=== PATIENT | male | born 1965 | race Caucasian/White ===

== ENCOUNTER 2018-07-03 12:38 | Observation (INO) | payer BC, SELFPAY ==
--- OUTSIDE RECORDS SUMMARY | 2018-07-03 12:41 | XMS REPORT | Clinical Summary ---
:1965 Author Organization [facility] Address [address] [place] [address] Care Team Providers Name Role Phone Henri Rene DO Primary Care Provider Allergies No Known Allergies Current Medications Prescription Sig. Disp. Refills Start Date End Date Status citalopram (CeleXA) 20 Take 20 mg by Active MG tablet mouth daily. clopidogrel (PLAVIX) Take 75 mg by Active 75 mg tablet mouth daily. carvedilol (COREG) 25 Take 25 mg by Active MG tablet mouth 2 (two) times a day with meals. atorvastatin (LIPITOR) Take 40 mg by Active 40 MG tablet mouth 2 (two) times a day. aspirin (ECOTRIN) 81 Take 81 mg by Active MG enteric coated mouth daily. tablet nitroglycerin Place 0.4 mg Active (NITROSTAT) 0.4 MG SL under the tablet tongue every 5 (five) minutes as needed for chest pain. ascorbic acid, vitamin Take 500 mg by Active C, (VITAMIN C) 500 MG mouth daily. tablet multivitamin Take 1 tablet Active (THERAGRAN) tablet by mouth daily. ranitidine (ZANTAC) Take 150 mg by Active 150 MG tablet mouth daily. insulin GLARGINE Inject 15 Units 4.5 mL 0 10/31/2017 11/30/2017 (LANTUS) 100 unit/mL under the skin injection (vial) daily for 30 days. metFORMIN (GLUCOPHAGE) Take 1 tablet 60 tablet 0 10/31/2017 11/30/2017 500 mg tablet (500 mg total) by mouth 2 (two) times a day with meals for 30 days. Active Problems Problem Noted Date Type 2 diabetes mellitus without complication (HCC) 10/30/2017 Obesity (BMI 30-39.9) 10/30/2017 Essential hypertension 10/30/2017 Unstable angina pectoris (HCC) 10/28/2017 Encounters Date Type Specialty Care Team Description 10/28/2017 - Hospital Encounter General Internal Sary Slater Unstable angina pectoris (Primary Dx); 10/31/2017 Medicine MD Kari Type 2 diabetes mellitus without complication, without long-term current use of insulin Nolberto Christopher MD after 07/02/2017 Social History Tobacco Use Types Packs/Day Years Used Date Former Smoker Smokeless Tobacco: Current User Alcohol Use Drinks/Week oz/Week Comments Yes 12 Cans of beer 7.2 Sex Assigned at Date Recorded Not on file Last Filed Vital Signs Vital Sign Reading Time Taken Blood Pressure 132/79 10/31/2017 12:56 PM RESEARCH AND DEVELOPMENT DIRECTOR Pulse 53 10/31/2017 12:56 PM RESEARCH AND DEVELOPMENT DIRECTOR Temperature 36.3 C (97.4 F) 10/31/2017 12:56 PM RESEARCH AND DEVELOPMENT DIRECTOR Respiratory Rate 17 10/31/2017 12:56 PM RESEARCH AND DEVELOPMENT DIRECTOR Oxygen Saturation 94% 10/31/2017 12:56 PM RESEARCH AND DEVELOPMENT DIRECTOR Inhaled Oxygen Concentration - - Weight 114 kg (251 lb) 10/28/2017 11:36 AM RESEARCH AND DEVELOPMENT DIRECTOR Height 182.9 cm (6') 10/28/2017 11:36 AM RESEARCH AND DEVELOPMENT DIRECTOR Body Mass Index 34.04 10/28/2017 11:36 AM RESEARCH AND DEVELOPMENT DIRECTOR Plan of Treatment Health Maintenance Due Date Last Done Comments DIABETIC RETINAL EYE EXAM 1965 DIABETIC FOOT EXAM 1975 URINE MICROALBUMIN 1975 COLON CANCER SCREENING 2015 SHINGRIX VACCINE (#1) 2015 INFLUENZA VACCINE 03/29/2018 Procedures Procedure Name Priority Date/Time Associated Comments Diagnosis POC GLUCOSE Routine 10/31/2017 12:57 Results for this PM RESEARCH AND DEVELOPMENT DIRECTOR procedure are in the results section. POC GLUCOSE Routine 10/31/2017 9:16 Results for this AM RESEARCH AND DEVELOPMENT DIRECTOR procedure are in the results section. VITAMIN D 25 HYDROXY Routine 10/31/2017 5:24 Results for this LEVEL AM RESEARCH AND DEVELOPMENT DIRECTOR procedure are in the results section. LIPID PANEL Routine 10/31/2017 5:24 Results for this AM RESEARCH AND DEVELOPMENT DIRECTOR procedure are in the results section. POC GLUCOSE Routine 10/30/2017 8:40 Results for this PM RESEARCH AND DEVELOPMENT DIRECTOR procedure are in the results section. POC GLUCOSE Routine 10/30/2017 5:24 Results for this PM RESEARCH AND DEVELOPMENT DIRECTOR procedure are in the results section. POC GLUCOSE Routine 10/30/2017 12:38 Results for this PM RESEARCH AND DEVELOPMENT DIRECTOR procedure are in the results section. CT ANGIOGRAM PE CHEST STAT 10/30/2017 9:39 Results for this AM RESEARCH AND DEVELOPMENT DIRECTOR procedure are in the results section. POC GLUCOSE Routine 10/30/2017 7:59 Results for this AM RESEARCH AND DEVELOPMENT DIRECTOR procedure are in the results section. POC GLUCOSE Routine 10/29/2017 8:36 Results for this PM RESEARCH AND DEVELOPMENT DIRECTOR procedure are in the results section. POC GLUCOSE Routine 10/29/2017 6:14 Results for this PM RESEARCH AND DEVELOPMENT DIRECTOR procedure are in the results section. NM MYOCARDIAL PERFUSION Routine 10/29/2017 3:35 Results for this STRESS ONLY PM RESEARCH AND DEVELOPMENT DIRECTOR procedure are in the results section. POC GLUCOSE Routine 10/29/2017 12:15 Results for this PM RESEARCH AND DEVELOPMENT DIRECTOR procedure are in the results section. CV STRESS TEST Routine 10/29/2017 9:47 Results for this AM RESEARCH AND DEVELOPMENT DIRECTOR procedure are in the results section. ECHOCARDIOGRAM 2D Routine 10/29/2017 9:14 Results for this COMPLETE W MMODE AM RESEARCH AND DEVELOPMENT DIRECTOR procedure are in SPECTRAL COLOR DOPPLER the results (90937) section. POC GLUCOSE Routine 10/29/2017 7:57 Results for this AM RESEARCH AND DEVELOPMENT DIRECTOR procedure are in the results section. ZZESTIMATED GFR Routine 10/29/2017 6:07 Results for this AM RESEARCH AND DEVELOPMENT DIRECTOR procedure are in the results section. THYROID STIMULATING Routine 10/29/2017 6:07 Results for this HORMONE AM RESEARCH AND DEVELOPMENT DIRECTOR procedure are in the results section. MAGNESIUM LEVEL Routine 10/29/2017 6:07 Results for this AM RESEARCH AND DEVELOPMENT DIRECTOR procedure are in the results section. BASIC METABOLIC PANEL Routine 10/29/2017 6:07 Results for this AM RESEARCH AND DEVELOPMENT DIRECTOR procedure are in the results section. HC COMPLETE BLD COUNT Routine 10/29/2017 6:07 Results for this W/AUTO DIFF AM RESEARCH AND DEVELOPMENT DIRECTOR procedure are in the results section. TROPONIN Routine 10/29/2017 6:07 Results for this AM RESEARCH AND DEVELOPMENT DIRECTOR procedure are in the results section. HEMOGLOBIN A1C Routine 10/29/2017 6:07 Results for this AM RESEARCH AND DEVELOPMENT DIRECTOR procedure are in the results section. POC GLUCOSE Routine 10/28/2017 9:06 Results for this PM RESEARCH AND DEVELOPMENT DIRECTOR procedure are in the results section. TROPONIN Timed 10/28/2017 3:38 Results for this PM RESEARCH AND DEVELOPMENT DIRECTOR procedure are in the results section. POC GLUCOSE Routine 10/28/2017 2:42 Results for this PM RESEARCH AND DEVELOPMENT DIRECTOR procedure are in the results section. ECG ED PRELIMINARY Routine 10/28/2017 2:30 Results for this INTERPRETATION PM RESEARCH AND DEVELOPMENT DIRECTOR procedure are in the results section. ZZESTIMATED GFR STAT 10/28/2017 12:08 Results for this PM RESEARCH AND DEVELOPMENT DIRECTOR procedure are in the results section. B NATRIURETIC PEPTIDE STAT 10/28/2017 12:08 Results for this PM RESEARCH AND DEVELOPMENT DIRECTOR procedure are in the results section. TROPONIN STAT 10/28/2017 12:08 Results for this PM RESEARCH AND DEVELOPMENT DIRECTOR procedure are in the results section. COMPREHENSIVE METABOLIC STAT 10/28/2017 12:08 Results for this PANEL PM RESEARCH AND DEVELOPMENT DIRECTOR procedure are in the results section. HC COMPLETE BLD COUNT STAT 10/28/2017 12:08 Results for this W/AUTO DIFF PM RESEARCH AND DEVELOPMENT DIRECTOR procedure are in the results section. XR CHEST 2 VW STAT 10/28/2017 12:00 Results for this PM RESEARCH AND DEVELOPMENT DIRECTOR procedure are in the results section. ECG 12-LEAD STAT 10/28/2017 11:21 Results for this AM RESEARCH AND DEVELOPMENT DIRECTOR procedure are in the results section. after 07/02/2017 Results POC glucose (10/31/2017 12:57 PM)Only the most recent of12 resultswithin the time period is included. POC glucose 248 (H) 65 - 99 mg/dL [facility] DEPARTMENT OF PATHOLOGY AND Comment: HelloSign MEDICINE [facility] Notified RN Meter ID: [id number] Landscape Maintenance Internship: Tejinder Mckenzie Performing Organization Address City/State/Zipcode Phone Number [facility] DEPARTMENT OF PATHOLOGY AND [address] [place] [address] [facility] Vitamin D 25 hydroxy level (10/31/2017 5:24 AM) Vitamin D, 25-hydroxy 22.4 (L) 30.0 - 150.0 [facility] DEPARTMENT OF Comment: ng/mL PATHOLOGY AND GENOMIC This assay reports the sum of 25-hydroxy vitamin D3 and 25-hydroxy vitamin MEDICINE D2. Reference range: 0-17 years: Deficiency: less than 20ng/mL Optimum level: greater than or equal to 20 ng/mL. 18 years and older: Deficiency: less than 20ng/mL Insufficiency: 20-29 ng/mL Optimum Level: 30-80 ng/mL The assay reportable range is 3.4155.9 ng/mL. Levels higher than 150 ng/mL may be associated with toxicity. If toxicity is clinically suspected and the reported result is >155.9 ng/mL,contact lab for alternative methods to obtain a definitivelevel. If separate quantitation of 25-hydroxy vitamin D3 and 25-hydroxy vitamin D2 is needed, please contact lab for alternative methods. Specimen Blood Performing Organization Address [facility]/Zipcode Phone Number [facility] DEPARTMENT OF PATHOLOGY AND [address] [place] [address] [facility] Presdo Lipid panel (10/31/2017 5:24 AM) Cholesterol 189 <200 mg/dL [facility] DEPARTMENT OF PATHOLOGY AND GENOMIC MEDICINE Triglycerides 487 (H) <150 mg/dL [facility] DEPARTMENT OF PATHOLOGY AND GENOMIC MEDICINE HDL cholesterol 40 >40 mg/dL [facility] DEPARTMENT OF PATHOLOGY AND GENOMIC MEDICINE LDL cholesterol 100 (H)Comment: Result <100 mg/dL [facility] DEPARTMENT obtained by direct LDL PATHOLOGY AND GENOMIC measurement MEDICINE Lipid panel interpretation SeeBelow [facility] DEPARTMENT OF Comment: PATHOLOGY AND GENOMIC Total Cholesterol (mg/dL) MEDICINE <200 Desirable 609-367Bvleqisfzv-htst >=240High Triglycerides (mg/dL) <150 Normal 623-278Rtgonvlare-dnjn 200-499High >=500Very high HDL Cholesterol (mg/dL) <40Low (male) <40Low (female) LDL Cholesterol (mg/dL) <100 Optimal 100-129Near or above optimal 475-363Xinemqogub-ylhp 160-189High >=190Very high Risk Catergories that modify LDL goals. Risk CatergoriesLDL goal (mg/dL) CHD and CHD risk equivalent<100 (10-year risk >20%) Multiple (2+) risk factors <130 (10-year risk=<20%) 0-1 risk factors <160 (<10-year risk) Defining levels of lipids in metabolic syndrome Triglycerides>=150 mg/dL HDL Cholesterol Men<40 mg/dL Women<40 mg/dL Non-HDL cholesterol is a second target for therapy in persons with high triglycerides (>=200 mg/dL) Specimen Plasma specimen Performing Organization Address City/[facility]/Zipcode Phone Number [facility] DEPARTMENT OF PATHOLOGY AND [address] [place] [address] [facility] CT Angiogram Pe Chest (10/30/2017 9:39 AM) Narrative Performed At EXAMINATION: [facility] CT ANGIOGRAM PE CHEST CLINICAL HISTORY: SHORTNESS OF BREATH TECHNIQUE: CT angiographic images of the chest were obtained during intravenous administration of iodinated contrast. Computerized reformatted images and 3-D MIP images were also obtained and archived (CT pulmonary embolus protocol). CT imaging was performed with iterative reconstruction technique and/or automated exposure control to reduce radiation dose. COMPARISON: None. IMPRESSION: 1.Mild dependent atelectasis in the lung bases. Punctate calcified granuloma in the left lung base. Lungs are otherwise clear. 2.Normal thyroid. No pathologically enlarged axillary, mediastinal, or hilar lymph nodes. 3.Cardiomegaly. Several coronary stents. Unremarkable thoracic aorta and great vessels. 4.Pulmonary arteries are patent without filling defect/pulmonary embolism. 5.Fatty liver. Punctate nonobstructing stone in the interpolar right kidney and upper pole left kidney. Ill-defined hypoattenuating lesion in the upper pole left kidney, possible cyst but margins do not appear well circumscribed, recommend renal ultrasound for further assessment. 6.Likely Schmorl's node in the superior endplate of L1. SUMMARY: 1.No acute abnormality. No pulmonary embolism. 2.Ill-defined hypoattenuating lesion in the upper pole left kidney, possible cyst but margins do not appear well circumscribed, recommend renal ultrasound for further assessment. 3.Other findings as above. [facility]-[id number] Procedure Note [facility], Radiology Results Incoming - 10/30/2017 9:52 AM RESEARCH AND DEVELOPMENT DIRECTOR EXAMINATION: CT ANGIOGRAM PE CHEST CLINICAL HISTORY: SHORTNESS OF BREATH TECHNIQUE: CT angiographic images of the chest were obtained during intravenous administration of iodinated contrast. Computerized reformatted images and 3-D MIP images were also obtained and archived (CT pulmonary embolus protocol). CT imaging was performed with iterative reconstruction technique and/or automated exposure control to reduce radiation dose. COMPARISON: None. IMPRESSION: 1. Mild dependent atelectasis in the lung bases. Punctate calcified granuloma in the left lung base. Lungs are otherwise clear. 2. Normal thyroid. No pathologically enlarged axillary, mediastinal, or hilar lymph nodes. 3. Cardiomegaly. Several coronary stents. Unremarkable thoracic aorta and great vessels. 4. Pulmonary arteries are patent without filling defect/pulmonary embolism. 5. Fatty liver. Punctate nonobstructing stone in the interpolar right kidney and upper pole left kidney. Ill-defined hypoattenuating lesion in the upper pole left kidney, possible cyst but margins do not appear well circumscribed, recommend renal ultrasound for further assessment. 6. Likely Schmorl's node in the superior endplate of L1. SUMMARY: 1. No acute abnormality. No pulmonary embolism. 2. Ill-defined hypoattenuating lesion in the upper pole left kidney, possible cyst but margins do not appear well circumscribed, recommend renal ultrasound for further assessment. 3. Other findings as above. [facility]-[id number] Performing Organization Address City/State/Zipcode Phone Number [facility] [address] [place] [address] CV myocardial perfusion (10/29/2017 3:35 PM) Narrative Performed At [facility] Nuclear Cardiology and Cardiac CT [address] [place] [address] Myocardial Perfusion Imaging Report Stress ECG tracings are available in [employer], [employer] and [employer] All ECG interpretations are included in this report Pat.Name:Hailey LANDERS.ID:[id number] .Date: 10/29/2017Refer.MD:JOSELIN MIN MD Exam Time: 9:24:00 AM Study Type:Myocardial Perfusion Imaging Height:72inWeight: 251lb BSA: 2.35 m2 DOBAge:1965,52Y Sex: MALEBP:117/65 HR:50 bpm Nuclear Tech:YASMEEN Chilel/Mickey ARANA Pat. Stat.:Inpatient Room:J816 Nuclear Event ID:[id number] Order ID:[id number] Reason for Study:CAD, prior coronary artery stent, Chest pain, unspecified* History / Clinical:Coronary artery disease, Diabetes, Family history CAD, Hypertension, Obesity Procedures:Stress only Risk Factors:Known Coronary Atherosclerosis, Diabetes, Family History Premature, Hypertension, Obesity Clinical Symptoms:Regadenoson Physical Exam:S1, S2, Clear Lungs Surgery: Serum K+ Date,4.4/10/29/17, Troponin I Date,1)neg x 210/28/17 2)/ 3)/, BUN/Creatinine Date,13/0.9/10/29/17 Medications:Aspirin, Coreg, Hydralazine, Insulin, Lipitor, Plavix SUMMARY: SCINTIGRAPHIC RESULTS Perfusion Defect Size (% LV) 0 % Total 0 % Ischemia 0 % Scar Left Ventricular Perfusion Results There is normal tracer distribution throughout the myocardium during stress. Gated SPECT Results The post-stress left ventricular ejection fraction is 66 % with normal regional wall motion and left ventricular thickening.Left ventricular end-diastolic volume is 139 ml; end-systolic volume is47 ml. The left ventricle is of normal size at stress.The right ventricle is of normal size with normal wall motion. Conclusion Normal regadenoson Tc-99m tetrofosmin myocardial perfusion study. The left ventricular ejection fraction is normal. Comments Patients with a normal stress myocardial perfusion study have a low (< 1%) annual risk of cardiac or nonfatal myocardial infarction. Study Quality/Artifacts The study quality is good. Comparison to Previous Study None available. STRESS: Baseline Vital Signs:Intervention: Regadenoson 0.4mg/5ml IV over 10 seconds followed by radiotracer injection and 5ml saline flush ECG: Normal Sinus Rhythm HR:50 BP:117/65 Stress Test Results: Target HR: 143 Symptoms and Complications: Arrhythmias: None Terminated: As per Regadenoson protocol Symptoms:Flushing, Headache, Shortness of breath Complications: none Stress ECG Interp: No ischemic ST segment change occurred with stress. Signed 10/29/2017 03:39 PM Sandie Ortiz MD Procedure Note Interface, Radiology Results In - 10/29/2017 3:39 PM [facility] [[email or web address]] Nuclear Cardiology and Cardiac CT [address] [place] [address] Myocardial Perfusion Imaging Report Stress ECG tracings are available in [employer], [employer] and [employer] All ECG interpretations are included in this report Pat.Name: DRAKE LANDERS.ID: [id number] .Date: 10/29/2017 Refer.MD: JOSELIN MIN MD Exam Time: 9:24:00 AM Study Type:Myocardial Perfusion Imaging Height: 72in Weight: 251lb BSA: 2.35 m2 Age: 6 1965,52Y Sex: MALE BP: 117/65 HR: 50 bpm Nuclear Tech:Magalis Herrera [facility]/Mickey Carpenter [facility] Pat. Stat.:Inpatient Room: J816 Nuclear Event ID:[id number] Order ID: [id number] Reason for Study:CAD, prior coronary artery stent, Chest pain, unspecified* History / Clinical:Coronary artery disease, Diabetes, Family history CAD, Hypertension, Obesity Procedures:Stress only Risk Factors:Known Coronary Atherosclerosis, Diabetes, Family History Premature, Hypertension, Obesity Clinical Symptoms:Regadenoson Physical Exam:S1, S2, Clear Lungs Surgery: Serum K+ Date, 4.4/10/29/17, Troponin I Date, 1)neg x 2/10/28/17 2)/ 3)/, BUN/Creatinine Date, 130.910/29/17 Medications:Aspirin, Coreg, Hydralazine, Insulin, Lipitor, Plavix SUMMARY: SCINTIGRAPHIC RESULTS Perfusion Defect Size (% LV) 0 % Total 0 % Ischemia 0 % Scar Left Ventricular Perfusion Results There is normal tracer distribution throughout the myocardium during stress. Gated SPECT Results The post-stress left ventricular ejection fraction is 66 % with normal regional wall motion and left ventricular thickening. Left ventricular end-diastolic volume is 139 ml; end-systolic volume is 47 ml. The left ventricle is of normal size at stress. The right ventricle is of normal size with normal wall motion. Conclusion Normal regadenoson Tc-99m tetrofosmin myocardial perfusion study. The left ventricular ejection fraction is normal. Comments Patients with a normal stress myocardial perfusion study have a low (< 1%) annual risk of cardiac or nonfatal myocardial infarction. Study Quality/Artifacts The study quality is good. Comparison to Previous Study None available. STRESS: Baseline Vital Signs: Intervention: Regadenoson 0.4mg/5ml IV over 10 seconds followed by radiotracer injection and 5ml saline flush ECG: Normal Sinus Rhythm HR: 50 BP: 117/65 Stress Test Results: Target HR: 143 Symptoms and Complications: Arrhythmias: None Terminated: As per Regadenoson protocol Symptoms: Flushing, Headache, Shortness of breath Complications: none Stress ECG Interp: No ischemic ST segment change occurred with stress. Signed 10/29/2017 03:39 PM Sandie Ortiz MD Performing Organization Address [facility] Phone Number [facility] [address] [place] [address] Cv ecg exercise stress (nuclear or echo) (10/29/2017 9:47 AM) Resting HR 50 H MUSE Resting BP 119 [facility] MUSE Peak MET Achieved 1.0 H MUSE Protocol Name REGADENO [facility] MUSE Time in Exercise Phase 00:01:00 [facility] MUSE Max Systolic BP 119 H MUSE Max Diastolic BP 65 H MUSE Max Heart Rate 76 H MUSE Max Predicted Heart Rate 168 H MUSE Target HR Formula (220 - Age)*100% H MUSE Test Indication chest pain [facility] MUSE Arrhy During Ex [facility] MUSE ECG Interp Before EX [facility] MUSE ECG Interp During Ex [facility] MUSE Ex Summary Comment [facility] MUSE Overall HR Response to H MUSE Exercise Overall BP Response To H MUSE Exercise Reason for Termination H MUSE Stress Test Impression -Waveform interpreted in report [facility] MUSE associated with image study. No interpretation is provided as part of this Stress ECG report.-Electronically Signed By Angel MARSHALL, Sandie Muniz ([id number]), editor & co founder Sher Cox ([id number]) on 10/29/2017 2:29:43 PM Performing Organization Address [facility] Phone Number [facility] [employer] [phone] [phone] Echocardiogram complete w contrast and 3D if needed (10/29/2017 9:14 AM) Narrative Performed At [facility] Echocardiography Report [address]Name:Hailey LANDERS.ID:[id number] .Date: 10/29/2017Refer.MD:NOLBERTO CHRISTOPHER MD Exam Time: 8:21:00 AMStudsunil Type:Routine Echo Height:72inWeight: 251lb BSA: 2.35 m2 DOBAge:1965,52Y Sex: MALEBP:123/71 HR:61 bpm Sonogrphr: La Ann RDCS, RVT Pat. Stat.:Inpatient Room:[facility] Study Status:Final Echo Event ID:[id number] Order ID:[id number] Reason for Study:Chest Pain, Hx LA, PCIs History / Clinical:Chest Pain, Coronary Artery Disease, Hypertension Procedures:2D Echo, Colorflow Doppler SUMMARY: LV EF is normal. RV systolic function is mildly depressed. LV filling pressure is normal. Insufficient TR jet to estimate PA systolic pressure. FINDINGS: LV: LV size is normal. LV EF is normal. Overall wall motion is normal.Estimated EF is 60-64%. RV: RV size is moderately enlarged. RV systolic function is mildlydepressed. RV wall motion is mildly hypokinetic. LA: LA size is normal. RA: RA volume is moderately enlarged. AO: Aortic root diameter is normal. BLADIMIR: No pericardial effusion. AV: No structural AV abnormalities noted. MV: No structural MV abnormalities noted. A trace of mitral regurgitation. PV: No structural PV abnormalities noted. A trace of pulmonic regurgitation. TV: No structural TV abnormalities noted. Bowman: LV relaxation is reduced, appropriate for age. LV filling pressureis normal. Other:Insufficient TR jet to estimate PA systolic pressure. MEASUREMENTS: 2D Parasternal Long [place] Ao An2.3 cmLVPWd1 cm LVOT 2.3 cmLA Ds4.3 cm LVIDd5.3 cmIndex2.3 cm/m Ao Rtd 3.6 cm Index1.5 cm/m LVIDs3.4 cm LV Bhsj970.8 g(122-174) LV%fs 35.4 % LVM Index 85.5 g/m2 IVSd 1 cmRWT0.4 LA Sng Plane LA Area 21.6 cm2(8.8-23.4) LA Vol60.3 ml Index25.7 ml/m LA LngAx 6.7 cm RA Sng Plane RA Area 26.8 cm2(8.3-19.5) RA Vol 101.1 ml Index43 ml/m RA LngAx 5.6 cm DOPPLER LVOT Stroke Vol LVOT 2.3 cmLVOT CO4.1 l/min LVOT TVI20.1 cmLVOT CI1.7 l/m/m2 LVOT Tm357 uzerLE58 bpm LVOT SV 83.5 ml Signed 10/29/2017 04:44 PM Anitra Vega M.D. Procedure Note Interface, Radiology Results In - 10/29/2017 4:44 PM RESEARCH AND DEVELOPMENT DIRECTOR Echocardiography Report [address] [place] [address] Pat.Name: DRAKE LANDERS.ID: [id number] .Date: 10/29/2017 Refer.MD: NOLBERTO CHRISTOPHER MD Exam Time: 8:21:00 AM Study Type:Routine Echo Height: 72in Weight: 251lb BSA: 2.35 m2 Age: 6 1965,52Y Sex: MALE BP: 123/71 HR: 61 bpm Sonogrphr: La Ann RDCS, RVT Pat. Stat.:Inpatient Room: [facility] Study Status:Final Echo Event ID:[id number] Order ID: [id number] Reason for Study:Chest Pain, Hx LA, PCIs History / Clinical:Chest Pain, Coronary Artery Disease, Hypertension Procedures:2D Echo, Colorflow Doppler SUMMARY: LV EF is normal. RV systolic function is mildly depressed. LV filling pressure is normal. Insufficient TR jet to estimate PA systolic pressure. FINDINGS: LV: LV size is normal. LV EF is normal. Overall wall motion is normal. Estimated EF is 60-64%. RV: RV size is moderately enlarged. RV systolic function is mildly depressed. RV wall motion is mildly hypokinetic. LA: LA size is normal. RA: RA volume is moderately enlarged. AO: Aortic root diameter is normal. BLADIMIR: No pericardial effusion. AV: No structural AV abnormalities noted. MV: No structural MV abnormalities noted. A trace of mitral regurgitation. PV: No structural PV abnormalities noted. A trace of pulmonic regurgitation. TV: No structural TV abnormalities noted. Bowman: LV relaxation is reduced, appropriate for age. LV filling pressure is normal. Other: Insufficient TR jet to estimate PA systolic pressure. MEASUREMENTS: 2D Parasternal Long [place] Ao An 2.3 cm LVPWd 1 cm LVOT 2.3 cm LA Ds 4.3 cm LVIDd 5.3 cm Index 2.3 cm/m Ao Rtd 3.6 cm Index 1.5 cm/m LVIDs 3.4 cm LV Mass 200.8 g (122-174) LV%fs 35.4 % LVM Index 85.5 g/m2 IVSd 1 cm RWT 0.4 LA Sng Plane LA Area 21.6 cm2 (8.8-23.4) LA Vol 60.3 ml Index 25.7 ml/m LA LngAx 6.7 cm RA Sng Plane RA Area 26.8 cm2 (8.3-19.5) RA Vol 101.1 ml Index 43 ml/m RA LngAx 5.6 cm DOPPLER LVOT Stroke Vol LVOT 2.3 cm LVOT CO 4.1 l/min LVOT TVI 20.1 cm LVOT CI 1.7 l/m/m2 LVOT Tm 357 msec HR 49 bpm LVOT SV 83.5 ml Signed 10/29/2017 04:44 PM Anitra Vega M.D. Performing Organization Address [facility] [place] [facility] Centercode Phone Number [facility] [address] [place] [address] Estimated GFR (10/29/2017 6:07 AM)Only the most recent of2 resultswithin the time period is included. GFR Non Af Amer 88 mL/min/1.73 m2 [facility] DEPARTMENT OF PATHOLOGY AND GENOMIC MEDICINE GFR Af Amer >90 mL/min/1.73 m2 [facility] DEPARTMENT OF Comment: PATHOLOGY AND GENOMIC Chronic kidney disease: <60 mL/min/1.73m2 MEDICINE Kidney failure: <15 mL/min/1.73m2 The estimated GFR is calculated from the IDMS-traceable Modification of Diet in Renal Disease Equation. The accuracy of the calculation is poor when the creatinine is normal. Calculated values >90 mL/min/1.73m2 are not reported. This equation has not been validated in children (<18 years), women, the elderly (>70 years), or ethnic groups other than Caucasians and Americans. Specimen Plasma specimen Performing Organization Address [facility] [place] [facility] Centercode Phone Number [facility] DEPARTMENT OF PATHOLOGY AND [address] [place] [address] [employer] MEDICINE Troponin (10/29/2017 6:07 AM)Only the most recent of3 resultswithin the time period is included. Troponin <0.30 0.00 - 0.30 ng/mL [facility] DEPARTMENT OF PATHOLOGY Comment: AND GENOMIC MEDICINE 0.30 - 1.49 ng/mlMay indicate increased risk of acute coronary syndrome. >=1.5 ng/mlConsistent with acute myocardial infarction. The diagnostic value of a single normal or non-diagnostic result is questionable.Serial samples at 2-6 hour intervals are required to rule out acute myocardial injury. Specimen Plasma specimen Performing Organization Address City/[facility] [place] [facility] Centercode Phone Number [facility] OF PATHOLOGY AND [address] [place] [id number] [employer] [facility] CBC with platelet and differential (10/29/2017 6:07 AM)Only the most recent of2 resultswithin the time period is included. WBC 5.96 4.50 - 11.00 k/uL [facility] DEPARTMENT OF PATHOLOGY AND GENOMIC MEDICINE RBC 4.23 (L) 4.40 - 6.00 m/uL [facility] DEPARTMENT OF PATHOLOGY AND GENOMIC MEDICINE HGB 13.6 (L) 14.0 - 18.0 g/dL [facility] DEPARTMENT OF PATHOLOGY AND GENOMIC MEDICINE HCT 41.1 41.0 - 51.0 % [facility] DEPARTMENT OF PATHOLOGY AND GENOMIC MEDICINE MCV 97.2 82.0 - 100.0 fL [facility] DEPARTMENT OF PATHOLOGY AND GENOMIC MEDICINE MCH 32.2 27.0 - 34.0 pg [facility] DEPARTMENT OF PATHOLOGY AND GENOMIC MEDICINE MCHC 33.1 31.0 - 37.0 g/dL [facility] DEPARTMENT OF PATHOLOGY AND GENOMIC MEDICINE RDW - SD 43.8 37.0 - 55.0 fL [facility] DEPARTMENT OF PATHOLOGY AND GENOMIC MEDICINE MPV 10.1 8.8 - 13.2 fL [facility] DEPARTMENT OF PATHOLOGY AND GENOMIC MEDICINE Platelet count 131 (L) 150 - 400 k/uL [facility] DEPARTMENT OF PATHOLOGY AND GENOMIC MEDICINE Nucleated RBC 0.00 /100 WBC [facility] DEPARTMENT OF PATHOLOGY AND GENOMIC MEDICINE Neutrophils 48.8 39.0 - 69.0 % [facility] DEPARTMENT OF PATHOLOGY AND GENOMIC MEDICINE Lymphocytes 35.6 25.0 - 45.0 % [facility] DEPARTMENT OF PATHOLOGY AND GENOMIC MEDICINE Monocytes 11.6 (H) 0.0 - 10.0 % [facility] DEPARTMENT OF PATHOLOGY AND GENOMIC MEDICINE Eosinophils 3.0 0.0 - 5.0 % [facility] DEPARTMENT OF PATHOLOGY AND GENOMIC MEDICINE Basophils 0.8 0.0 - 1.0 % [facility] DEPARTMENT OF PATHOLOGY AND GENOMIC MEDICINE Immature granulocytes 0.2Comment: 0.0 - 1.0 % [facility] DEPARTMENT OF "Immature PATHOLOGY AND GENOMIC granulocytes" MEDICINE (promyelocytes, myelocytes, metamyelocytes) Specimen Blood Performing Organization Address City/[facility]/Zipcode Phone Number [facility] DEPARTMENT OF PATHOLOGY AND [address] [place] [address] Thyroid stimulating hormone (10/29/2017 6:07 AM) TSH 4.12 0.27 - 4.20 uIU/mL [facility] DEPARTMENT OF PATHOLOGY AND [employer] MEDICINE Specimen Plasma specimen Performing Organization Address City/[facility] [place] [facility] Centercode Phone Number [facility] DEPARTMENT OF PATHOLOGY AND [address] [place] [address] Magnesium level (10/29/2017 6:07 AM) Magnesium 1.9 1.6 - 2.6 mg/dL [facility] DEPARTMENT OF PATHOLOGY AND GENOMIC MEDICINE Specimen Plasma specimen Performing Organization Address [facility] [place] [facility] Centercode Phone Number [facility] DEPARTMENT OF PATHOLOGY AND [address] [place] [address] Hemoglobin A1c (10/29/2017 6:07 AM) Hemoglobin A1C 8.9 (H) 4.0 - 5.6 % [facility] DEPARTMENT OF PATHOLOGY Comment: AND [facility] HbA1c cutoffs for diagnosing diabetes: 4.0% - 5.6%=normal 5.7% - 6.4%=increased risk for diabetes (prediabetes) >=6.5%=diabetes Goals for glycemic control (ADA 2016) < 7.0%Target for non adults with diabetes. More or less stringent targets may be appropriate for individual patients. <7.5% Target for Children and adolescents with type 1 diabetes. Specimen Blood Performing Organization Address [facility] [place] [facility] Centercoor Phone Number [facility] DEPARTMENT OF PATHOLOGY AND [address] [place] [address] Basic metabolic panel (10/29/2017 6:07 AM) Sodium 138 135 - 148 mEq/L [facility] DEPARTMENT OF PATHOLOGY AND GENOMIC MEDICINE Potassium 4.4 3.5 - 5.0 mEq/L [facility] DEPARTMENT OF PATHOLOGY AND GENOMIC MEDICINE Chloride 101 98 - 112 mEq/L [facility] DEPARTMENT OF PATHOLOGY AND GENOMIC MEDICINE CO2 23 (L) 24 - 31 mEq/L [facility] DEPARTMENT OF PATHOLOGY AND GENOMIC MEDICINE Anion gap 14 7 - 15 mEq/L [facility] DEPARTMENT OF PATHOLOGY Comment: AND [facility] Starting from November , anion gap calculation no longer incorporates potassium. Please note the change. BUN 13 6 - 20 mg/dL [facility] DEPARTMENT OF PATHOLOGY AND GENOMIC MEDICINE Creatinine 0.9 0.7 - 1.2 mg/dL [facility] DEPARTMENT OF PATHOLOGY AND GENOMIC MEDICINE Glucose 209 (H) 65 - 99 mg/dL [facility] DEPARTMENT OF PATHOLOGY AND GENOMIC MEDICINE Calcium 9.3 8.3 - 10.2 mg/dL [facility] DEPARTMENT OF PATHOLOGY AND GENOMIC MEDICINE Specimen Plasma specimen Performing Organization Address [facility] [place] [facility]ercoor Phone Number [facility] DEPARTMENT OF PATHOLOGY AND [address] [place] [address] GENOMIC MEDICINE ECG ED Preliminary Interpretation - NOT AN ORDER (10/28/2017 2:30 PM) Narrative Performed At Sary Slater MD 10/29/20177:21 AM ECG ED Preliminary Interpretation - Not an Order Performed by: SARY SLATER Authorized by: SARY SLATER ECG reviewed by ED Physician in the absence of a control system manager: yes Previous ECG: Previous ECG:Unavailable Interpretation: Interpretation: abnormal Rate: ECG rate:61 ECG rate assessment: normal Rhythm: Rhythm: sinus rhythm Ectopy: Ectopy: none QRS: QRS axis:Normal QRS intervals:Normal Conduction: Conduction: normal ST segments: ST segments:Normal T waves: T waves: flattening Flattening:III B natriuretic peptide (10/28/2017 12:08 PM) BNP 24 0 - 100 pg/mL [facility] DEPARTMENT OF PATHOLOGY AND GENOMIC MEDICINE Specimen Blood Performing Organization Address [facility] [place] [facility]ercoor Phone Number [facility] DEPARTMENT OF PATHOLOGY AND [address] [place] [address] GENOMIC MEDICINE Comprehensive metabolic panel (10/28/2017 12:08 PM) Sodium 138 135 - 148 mEq/L [facility] DEPARTMENT OF PATHOLOGY AND GENOMIC MEDICINE Potassium 4.6 3.5 - 5.0 mEq/L [facility] DEPARTMENT OF PATHOLOGY AND GENOMIC MEDICINE Chloride 99 98 - 112 mEq/L [facility] DEPARTMENT OF PATHOLOGY AND GENOMIC MEDICINE CO2 23 (L) 24 - 31 mEq/L [facility] DEPARTMENT OF PATHOLOGY AND GENOMIC MEDICINE Anion gap 16 (H) 7 - 15 mEq/L [facility] DEPARTMENT OF Comment: PATHOLOGY AND GENOMIC Starting from November , anion gap calculation MEDICINE no longer incorporates potassium. Please note the change. BUN 11 6 - 20 mg/dL [facility] DEPARTMENT OF PATHOLOGY AND GENOMIC MEDICINE Creatinine 1.0 0.7 - 1.2 mg/dL [facility] DEPARTMENT OF PATHOLOGY AND GENOMIC MEDICINE Glucose 326 (H) 65 - 99 mg/dL [facility] DEPARTMENT OF PATHOLOGY AND GENOMIC MEDICINE Calcium 9.6 8.3 - 10.2 mg/dL [facility] DEPARTMENT OF PATHOLOGY AND GENOMIC MEDICINE Protein 7.5 6.3 - 8.3 g/dL [facility] DEPARTMENT OF Comment: PATHOLOGY AND GENOMIC Slaughter 4.6-7.0 g/dL MEDICINE 1 week 4.4-7.6 g/dL 7 months-1year5.1-7.3 g/dL 1-2 years5.6-7.5 g/dL >3 years6.0-8.0 g/dL 18-150 6.3-8.3 g/dL Albumin 3.9 3.5 - 5.0 g/dL [facility] DEPARTMENT OF PATHOLOGY AND GENOMIC MEDICINE A/G ratio 1.1 0.7 - 3.8 [facility] DEPARTMENT OF PATHOLOGY AND GENOMIC MEDICINE Alkaline phosphatase 100 40 - 129 U/L [facility] DEPARTMENT OF PATHOLOGY AND GENOMIC MEDICINE AST 59 (H) 10 - 50 U/L [facility] DEPARTMENT OF PATHOLOGY AND GENOMIC MEDICINE ALT 64 (H) 5 - 50 U/L [facility] DEPARTMENT OF PATHOLOGY AND GENOMIC MEDICINE Total bilirubin 0.5 0.0 - 1.2 mg/dL [facility] DEPARTMENT OF PATHOLOGY AND GENOMIC MEDICINE Specimen Plasma specimen Performing Organization Address City/[facility] [place] [facility]oor Phone Number [facility] DEPARTMENT OF PATHOLOGY AND [address] [place] [address] GENOMIC MEDICINE XR Chest 2 Vw (10/28/2017 12:00 PM) Narrative Performed At EXAMINATION:XR CHEST 2 VW RADIANT CLINICAL HISTORY:Chest Pain XR CHEST 2 VWimages are submitted COMPARISON:NONE FINDINGS: The cardiac silhouette is normal in size. The pulmonary vasculature is within normal limits. The lung zones are clear. There is no pleural effusion or pneumothorax. IMPRESSION: 1. There is no acute cardiopulmonary disease. [facility]-[id number] Procedure Note Interface, Radiology Results Incoming - 10/28/2017 12:05 PM RESEARCH AND DEVELOPMENT DIRECTOR EXAMINATION: XR CHEST 2 VW CLINICAL HISTORY: Chest Pain XR CHEST 2 VW images are submitted COMPARISON: NONE FINDINGS: The cardiac silhouette is normal in size. The pulmonary vasculature is within normal limits. The lung zones are clear. There is no pleural effusion or pneumothorax. IMPRESSION: 1. There is no acute cardiopulmonary disease. [facility]-[id number] Performing Organization Address [facility] [place] [facility] Phone Number [facility] [address] [place] [address] ECG 12 lead (10/28/2017 11:21 AM) Ventricular rate 61 [facility] Atrial rate 61 [facility] SC interval 158 [facility] QRSD interval 102 [facility] QT interval 410 [facility] QTC interval 412 [facility] P axis 1 31 [facility] QRS axis 1 -27 [facility] T wave axis 18 [facility] EKG impression Normal sinus rhythm-Normal ECG-No previous [facility] ECGs available- Performing Organization Address City/State/Zipcode Phone Number [facility] [address] [place] [address] after 07/02/2017 Insurance Payer Benefit Plan / Group Subscriber ID Type Phone Address BCBS BCBS CHOICE PPO/FEDERAL EMPL PPO xxxxxxxxxxxx PPO Home: [address] [phone] [place], [place] [id number]
[2018-07-03 13:14] LABS: Absolute Lymphocytes (CBC) 1.8 K/uL (0.7-4.9); Absolute Monocytes 0.7 K/uL (0.1-1.3); Basophils % 0.9 % (0-1.3); Eosinophils % 3.1 % (0-4.4); Hematocrit 45.6 % (39.6-49.0); Lymphocytes % 26.6 % (15.3-44.8); MCH 32.9 pg (27.0-35.0); MCV 97.2 fL (80-100); MPV 8.6 fL (7.6-11.3); Monocytes % 10.9 % (3.3-12.3); RBC Red Blood Cell Count 4.69 M/uL (4.33-5.43)
[2018-07-03 13:20] LABS: Protime INR 1.04
[2018-07-03] MEDS ORDERED: ASPIRIN 81 MG CHEWABLE TABLET ONE (13:31)
[2018-07-03 13:35] LABS: BUN Blood Urea Nitrogen 15 mg/dL (7-18); Bicarbonate 24 mmol/L (21-32); Glucose Level 147 mg/dL (74-106); NT PRO-BNP 288 pg/mL (<125); Potassium 4.2 mmol/L (3.5-5.1); Sodium Level 143 mmol/L (136-145); Troponin (Emerg Dept Use Only) < 0.02 ng/mL (0.0-0.045)
--- NOTE | 2018-07-03 13:54 | RAD REPORT ---
EXAM DESCRIPTION: RAD - Chest Single View - 07/03/2018 1:48 pm CLINICAL HISTORY: CHEST PAIN Chest pain. COMPARISON: Chest Single View dated 05/15/2017; Chest Single View dated 05/22/2016; Chest Single View dated 02/19/2016; Chest Single View dated 02/15/2016 FINDINGS: Portable technique limits examination quality. Mild interstitial pulmonary edema is seen. Linear atelectasis is suspect in the right lung base. The heart is significantly enlarged in size. No displaced fractures. IMPRESSION: Mild CHF versus volume overload pattern.
[2018-07-03] MEDS ORDERED: ONDANSETRON 4 MG/2 ML VIAL IV PRN (14:31)
[2018-07-03] MEDS ORDERED: ALBUTEROL 2.5 MG/3 ML NEB SOL NEB PRN (14:31)
[2018-07-03] MEDS ORDERED: ACETAMINOPHEN 500 MG TAB PO PRN (14:31)
[2018-07-03] MEDS ORDERED: NITROGLYCERIN 0.4 MG/TAB SL PRN (14:31)
[2018-07-03] MEDS ORDERED: IPRATROPIUM BROM 0.5MG/2.5ML NEB PRN (14:31)
--- NOTE | 2018-07-03 14:35 | ER ---
Nurse's Notes [facility] Name: Drake Vallejo Age: 53 yrs Sex: Male : 1965 Arrival Date: 07/03/2018 Time: 12:40 Bed 8 Private MD: Henri Rene H Diagnosis: Chest pain, unspecified Presentation: 07/03 12:48 Presenting complaint: Patient states: intermittent chest pain, dizziness, SOB for past iw two weeks, CP lasts for a few seconds, then has episodes where he feels like he's going to pass out, also c/o palpitations hx of [place] and stents, last stent placed 2 years ago. Transition of care: patient was not received from another setting of care. Onset of symptoms was June 22, 2018. Risk Assessment: Do you want to hurt yourself or someone else? Patient reports no desire to harm self or others. Initial Sepsis Screen: Does the patient meet any 2 criteria? No. Patient's initial sepsis screen is negative. Does the patient have a suspected source of infection? No. Patient's initial sepsis screen is negative. 12:48 Method Of Arrival: Wheelchair iw 12:48 Acuity: TERI 2 iw Historical: - Allergies: 12:50 hydrocet; iw - Home Meds: 12:50 aspirin 81 mg Oral TbEC 1 tab twice a day [Active]; citalopram 20 mg tab 1 tab once iw daily [Active]; Coreg 12.5 mg Oral tab 2 tabs 2 times per day [Active]; nitroglycerin 0.4 mg SL subl 1 tab every 5 minutes [Active]; - PMHx: 12:50 Depression; Hypertension; Myocardial infarction; iw - PSHx: 12:50 Heart stents; iw - Immunization history:: Adult Immunizations up to date. - Ebola Screening: : Patient negative for fever greater than or equal to 101.5 degrees Fahrenheit, and additional compatible Ebola Virus Disease symptoms Patient denies exposure to infectious person Patient denies travel to an Ebola-affected area in the 21 days before illness onset No symptoms or risks identified at this time. - Social history:: Smoking status: Patient uses tobacco products, smokes one pack cigarettes per day. - Family history:: not pertinent. - Hospitalizations: : No recent hospitalization is reported. Screenin:06 Abuse screen: Denies threats or abuse. Denies injuries from another. Nutritional hb screening: No deficits noted. Tuberculosis screening: No symptoms or risk factors identified. Fall Risk None identified. Assessment: 13:02 General: Appears in no apparent distress. Behavior is calm, cooperative. Pain: Pain hb does not radiate. Pain currently is 2 out of 10 on a pain scale. Quality of pain is described as pressure, Pain began 1 day ago. Neuro: Level of Consciousness is awake, alert, obeys commands, Oriented to person, place, time, situation. Cardiovascular: Heart tones S1 S2 present Capillary refill < 3 seconds Patient's skin is warm and dry. Respiratory: Airway is patent Trachea midline Respiratory effort is even, unlabored, Respiratory pattern is regular, symmetrical, Breath sounds are clear bilaterally. GI: No signs and/or symptoms were reported involving the gastrointestinal system. : No signs and/or symptoms were reported regarding the genitourinary system. EENT: No signs and/or symptoms were reported regarding the EENT system. Derm: Skin is pink, warm \T\ dry. Musculoskeletal: No signs and/or symptoms reported regarding the musculoskeletal system. 14:00 Reassessment: Patient appears in no apparent distress at this time. No changes from hb previously documented assessment. Patient and/or family updated on plan of care and expected duration. Pain level reassessed. Patient is alert, oriented x 3, equal unlabored respirations, skin warm/dry/pink. 14:59 Reassessment: Patient appears in no apparent distress at this time. No changes from hb previously documented assessment. Patient and/or family updated on plan of care and expected duration. Pain level reassessed. Patient is alert, oriented x 3, equal unlabored respirations, skin warm/dry/pink. 15:14 Reassessment: Pt c/o sudden substernal chest pain 810. Dr. Red notified, morphine 4 hb mg IVP administered as ordered. VSS. Admission offered, awaiting room assignment at this time. remains at bedside. Vital Signs: 12:50 BP 111 / 82; Pulse 87; Resp 16; Pulse Ox 98% on R/A; iw 14:00 BP 124 / 82; Pulse 66; Resp 17; Pulse Ox 97% on R/A; Pain 1/10; hb 14:59 BP 104 / 73; Pulse 64; Resp 15; Pulse Ox 100% on R/A; Pain 0/10; hb 15:15 BP 116 / 78; Pulse 63; Resp 16; Pulse Ox 99% on R/A; Pain 8/10; hb ED Course: 12:40 Patient arrived in ED. iw 12:41 Christiano Red MD is Attending Physician. rn 12:41 Henri Rene DO is Private Physician. mr 12:49 Triage completed. iw 12:52 Janeth Mcdaniel, RN is Primary Nurse. hb 13:01 EKG done, by exercise equipment repair technician. reviewed by Christiano Red MD. sm3 13:02 Inserted saline lock: 20 gauge in right forearm, using aseptic technique. Blood hb collected. 13:02 Patient maintains SpO2 saturation greater than 95% on room air. hb 13:06 Arm band placed on. hb 13:06 Patient has correct armband on for positive identification. Placed in gown. Bed in low hb position. Call light in reach. Side rails up X 1. scrap picker on. Pulse ox on. NIBP on. 13:47 X-ray completed. Portable x-ray completed in exam room. Patient tolerated procedure mh1 well. 13:48 XRAY Chest (1 view) In Process Unspecified. EDMS 14:33 Abdoul Alvarez DO is Hospitalizing Provider. rn 15:56 No provider procedures requiring assistance completed. Patient admitted, IV remains in hb place. Administered Medications: 13:20 Drug: Aspirin Chewable Tablet 324 mg Route: PO; hb 15:13 Follow up: Response: No adverse reaction hb 15:13 Drug: morphine 4 mg Route: IVP; Site: right forearm; hb Outcome: 14:34 Decision to Hospitalize by Provider. rn 15:56 Admitted to Tele accompanied by florian, family with patient, via wheelchair, room 411, Report called to Cindy PARIS 16:01 Patient left the ED. hb Signatures: Dispatcher [employer] EDMS Jaye Joe Martha 1 Jaquelin Bullock RN RN iw Nieto, Roman, MD MD rn Baxter, Heather, RN RN hb Montes, Shakira 3 Corrections: (The following items were deleted from the chart) 12:52 12:48 Presenting complaint: Patient states: intermittent chest pain, dizziness, SOB for iw past two weeks, CP lasts for a few seconds, then has episodes where he feels like he's going to pass out, hx of [place] and stents, last stent placed 2 years ago iw
--- NOTE | 2018-07-03 14:35 | EDPHYS ---
Physician Documentation [facility] Name: Drake Vallejo Age: 53 yrs Sex: Male : 1965 Arrival Date: 07/03/2018 Time: 12:40 Bed 8 Private MD: Henri Rene H ED Physician Christiano Red HPI: 07/03 14:16 This 53 yrs old Male presents to ER via Wheelchair with complaints of Chest rn Pain, Dizziness. 14:16 The patient or guardian reports chest pain that is located primarily in the substernal rn area. Onset: 2 week(s) ago. The pain does not radiate. Associated signs and symptoms: Pertinent positives: lightheadedness, palpitations, shortness of breath. The chest pain is described as a pressure. Modifying factors: The symptoms are alleviated by nothing. the symptoms are aggravated by nothing. Severity of pain: At its worst the pain was moderate in the emergency department the pain has improved. The patient has experienced similar episodes in the past. The patient has not recently seen a physician. Has had 7 stents in past, worsening pain and palpitations assoc with sob over last 2 weeks, intermittent.. Historical: - Allergies: 12:50 hydrocet; iw - Home Meds: 12:50 aspirin 81 mg Oral TbEC 1 tab twice a day [Active]; citalopram 20 mg tab 1 tab once iw daily [Active]; Coreg 12.5 mg Oral tab 2 tabs 2 times per day [Active]; nitroglycerin 0.4 mg SL subl 1 tab every 5 minutes [Active]; - PMHx: 12:50 Depression; Hypertension; Myocardial infarction; iw - PSHx: 12:50 Heart stents; iw - Immunization history:: Adult Immunizations up to date. - Ebola Screening: : Patient negative for fever greater than or equal to 101.5 degrees Fahrenheit, and additional compatible Ebola Virus Disease symptoms Patient denies exposure to infectious person Patient denies travel to an Ebola-affected area in the 21 days before illness onset No symptoms or risks identified at this time. - Social history:: Smoking status: Patient uses tobacco products, smokes one pack cigarettes per day. - Family history:: not pertinent. - Hospitalizations: : No recent hospitalization is reported. ROS: 14:16 Constitutional: Negative for fever, chills, and weight loss, Eyes: Negative for injury, rn pain, redness, and discharge, Neck: Negative for injury, pain, and swelling, Cardiovascular: Negative for edema Respiratory: Negative for cough, wheezing, and pleuritic chest pain, Abdomen/GI: Negative for abdominal pain, nausea, vomiting, diarrhea, and constipation, MS/Extremity: Negative for injury and deformity, Skin: Negative for injury, rash, and discoloration, Neuro: Negative for headache, numbness, tingling, and seizure. Exam: 14:16 Constitutional: This is a well developed, well nourished patient who is awake, alert, rn and in no acute distress. Head/Face: Normocephalic, atraumatic. Eyes: Pupils equal round and reactive to light, extra-ocular motions intact. Lids and lashes normal. Conjunctiva and sclera are non-icteric and not injected. Cornea within normal limits. Periorbital areas with no swelling, redness, or edema. Cardiovascular: Regular rate and rhythm with a normal S1 and S2. No pulse deficits. Respiratory: Lungs have equal breath sounds bilaterally, clear to auscultation Abdomen/GI: soft, non-tender Skin: Warm, dry with normal turgor. Normal color with no rashes, no lesions, and no evidence of cellulitis. MS/ Extremity: Pulses equal, no cyanosis. Neurovascular intact. Full, normal range of motion. Equal circumference. Neuro: Awake and alert, GCS 15, oriented to person, place, time, and situation. Cranial nerves II-XII grossly intact. Motor strength 5/5 in all extremities. Sensory grossly intact. Vital Signs: 12:50 BP 111 / 82; Pulse 87; Resp 16; Pulse Ox 98% on R/A; iw 14:00 BP 124 / 82; Pulse 66; Resp 17; Pulse Ox 97% on R/A; Pain 1/10; hb 14:59 BP 104 / 73; Pulse 64; Resp 15; Pulse Ox 100% on R/A; Pain 0/10; hb 15:15 BP 116 / 78; Pulse 63; Resp 16; Pulse Ox 99% on R/A; Pain 8/10; hb MDM: 12:41 Patient medically screened. rn 14:33 Differential diagnosis: acute myocardial infarction, anxiety, coronary artery disease rn costochondritis, esophagitis, gastritis, pleurisy, pneumothorax, stable angina, unstable angina. The patient was given aspirin in the Emergency Department. Data reviewed: vital signs, nurses notes, lab test result(s), EKG, radiologic studies, plain films, and as a result, I will admit patient. Counseling: I had a detailed discussion with the patient and/or guardian regarding: the historical points, exam findings, and any diagnostic results supporting the discharge/admit diagnosis, lab results, radiology results, the need for further work-up and treatment in the hospital. Response to treatment: the patient's symptoms have mildly improved after treatment, and as a result, I will admit patient. Admission orders: after a detailed discussion of the patient's condition and case, the admit orders are written by me. 07/03 12:56 Order name: Basic Metabolic Panel; Complete Time: 13:36 rn 07/03 12:56 Order name: CBC with Diff; Complete Time: 13:27 rn 07/03 12:56 Order name: NT PRO-BNP; Complete Time: 13:36 rn 07/03 12:56 Order name: PT-INR; Complete Time: 13:27 rn 07/03 12:56 Order name: Troponin (emerg Dept Use Only); Complete Time: 13:36 rn 07/03 14:39 Order name: Hemoglobin A1c [facility]LA 07/03 12:56 Order name: XRAY Chest (1 view); Complete Time: 14:16 rn 07/03 14:39 Order name: Echo with Doppler [facility] 07/03 14:39 Order name: T4 Free [facility]LA 07/03 14:39 Order name: Thyroid Stimulating Hormone [facility] 07/03 14:39 Order name: CKMB Creatine Kinase MB [facility] 07/03 14:39 Order name: Creatine Phosphokinase [facility] 07/03 14:39 Order name: Troponin I [facility] 07/03 12:56 Order name: EKG; Complete Time: 12:57 rn 07/03 12:56 Order name: Cardiac monitoring; Complete Time: 12:57 rn 07/03 12:56 Order name: EKG - Nurse/Tech; Complete Time: 12:57 rn 07/03 12:56 Order name: IV Saline Lock; Complete Time: 13:06 rn 07/03 12:56 Order name: Labs collected and sent; Complete Time: 13:06 rn 07/03 12:56 Order name: O2 Per Protocol; Complete Time: 12:57 rn 07/03 12:56 Order name: O2 Sat Monitoring; Complete Time: 12:57 rn 07/03 14:39 Order name: CONS Physician Consult EDMS 07/03 14:39 Order name: Consistent Carb (ADA) 2000 Stephen EDMS Administered Medications: 13:20 Drug: Aspirin Chewable Tablet 324 mg Route: PO; hb 15:13 Follow up: Response: No adverse reaction hb 15:13 Drug: morphine 4 mg Route: IVP; Site: right forearm; hb Disposition: 07/03/18 14:34 Hospitalization ordered by Abdoul Alvarez for Observation. Preliminary diagnosis is Chest pain, unspecified. - Bed requested for Telemetry/MedSurg (observation). - Status is Observation. hb - Condition is Stable. - Problem is new. - Symptoms have improved. UTI on Admission? No Signatures: Dispatcher [employer] EDLA Tia Johnson Irene, RN RN iw Nieto, Roman, MD MD rn Baxter, Heather, RN RN hb Corrections: (The following items were deleted from the chart) 15:36 14:34 Hospitalization Ordered by Abdoul Alvarez DO for Observation. Preliminary bd diagnosis is Chest pain, unspecified. Bed requested for Telemetry/MedSurg (observation). Status is Observation. Condition is Stable. Problem is new. Symptoms have improved. UTI on Admission? No. rn 16:01 15:36 07/03/2018 14:34 Hospitalization Ordered by Abdoul Alvarez DO for Observation. hb Preliminary diagnosis is Chest pain, unspecified. Bed requested for Telemetry/MedSurg (observation). Status is Observation. Condition is Stable. Problem is new. Symptoms have improved. UTI on Admission? No. bd
--- NOTE | 2018-07-03 14:45 | P.HP ---
Certification for Inpatient Patient admitted to: Observation With expected LOS: <2 Midnights Patient will require the following post-hospital care: None Practitioner: I am a practitioner with admitting privileges, knowledge of patient current condition, hospital course, and medical plan of care. Services: Services provided to patient in accordance with Admission requirements found in Title 42 Section 412.3 of the Code of Federal Regulations Patient History Date of Service: 07/03/18 Primary Care Provider: Dr. Rene; Cardiology-Dr. Willoughby Reason for admission: Chest pain, palpitation and shortness of breath History of Present Illness: 53-year-old male presented to emergency room with chest pain, palpitation and shortness of breath. Patient reports chest pain, palpitations and shortness of breath over the last several weeks. They have been occurring often on. Today chest pain lasted for about 45 min. He felt lightheaded. Chest pain to the substernal region. The reported some shortness of breath. Patient with past medical history of CAD with 7 stents in the past, hypertension, diabetes, hyperlipidemia and he is a former smoker. Patient was evaluated in the emergency room. Blood pressure within normal range. White count 6.8, hemoglobin 15. Sodium 143, potassium 4.2. Creatinine 1.2 with a GFR 63. BNP 288. Troponin less than 0.02. Chest x-ray showed possible mild CHF. EKG showed some PVCs but no ST elevation. Patient was admitted for further evaluation. When I saw the patient ER, he appeared comfortable. He was without any significant chest pain or shortness of breath at that time. Previous history shows heart catheterization done April of 2017. At that time he had mild plaque in the common iliac artery. He had a patent mid RCA stent, patent proximal/mid/distal circumflex stent. He also had a patent proximal/distal LAD stent. He had minimal diffuse plaquing, some plaquing in the left main about 20 -30%. There was no change in the left main since 2015. He had a normal ejection fraction at that time. At that time he was to continue with his medications and medical management. Finasteride was discontinued at that time due to orthostatic hypotension. Allergies hydrocet Allergy (Uncoded 05/18/17 13:38) Unknown No Known Allergies Allergy (Uncoded 02/18/16 02:23) Unknown Home medications list reviewed: Yes Home Medications: Ascorbic Acid [Vitamin C*] 1,000 mg PO DAILY 03/19/15 Aspirin 1 tab PO BID 03/19/15 Carvedilol [Coreg*] 12.5 mg PO BID 03/19/15 Citalopram Hydrobromide [Celexa] 20 mg PO DAILY 02/15/16 Multivitamin [Multivitamins] 1 tab PO DAILY 02/15/16 Tamsulosin HCl [Flomax] 1 tab PO DAILY 02/15/16 Atorvastatin Calcium [Lipitor*] 40 mg PO BEDTIME #30 tab 02/18/16 Clopidogrel Bisulfate [Plavix*] 75 mg PO DAILY #30 tablet 02/18/16 Nitroglycerin [Nitrostat*] 0.4 mg SL UD PRN #1 bottle 02/18/16 - Past Medical/Surgical History Diabetic: No -: CAD, multiple stents x7 -: Hypertension -: Diabetes mellitus type 2 -: Hyperlipidemia -: Former tobacco use -: BPH -: Cardiac catheterization with stent placement times 7 -: Right knee repair Psychosocial/ Personal History: Patient is . He has 4 children. 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 - Family History Mother -: Heart disease, Diabetes, Stroke Father -: Cancer - Social History Smoking Status: Former smoker Alcohol use: Yes CD- Drugs: No Caffeine use: Yes Place of Residence: Home Review of Systems General: As per HPI Eyes: Unremarkable ENT: Unremarkable Respiratory: Shortness of Breath, SOB with Excertion, As per HPI Cardiovascular: Chest Pain, Palpitations, Light Headedness, As per HPI Gastrointestinal: Unremarkable Genitourinary: Unremarkable Musculoskeletal: Unremarkable Integumentary: Unremarkable Neurological: Unremarkable Lymphatics: Unremarkable Physical Examination - Physical Exam General: Alert, In no apparent distress, Oriented x3, Cooperative HEENT: Atraumatic, Normocephalic, PERRLA, Mucous membr. moist/pink Neck: Supple, No Thyromegaly Respiratory: Clear to auscultation bilaterally, Normal air movement Cardiovascular: Normal pulses, Regular rate/rhythm Gastrointestinal: Normal bowel sounds, Soft and benign, Non-distended, No tenderness, No masses, No rebound, No guarding Musculoskeletal: No erythema, No tenderness, No warmth Integumentary: No tenderness/swelling, No erythema, No warmth, No cyanosis Neurological: Normal speech, Normal strength at 5/5 x4 extr, Normal tone, Normal affect - Studies Laboratory Data (last 24 hrs) 07/03/18 13:03: PT 12.3, INR 1.04 07/03/18 13:03: WBC 6.8, Hgb 15.4, Hct 45.6, Plt Count 188 07/03/18 13:03: Sodium 143, Potassium 4.2, BUN 15, Creatinine 1.20, Glucose 147 H Assessment and Plan - Plan Impression: Chest pain, palpitation, shortness of breath suspect unstable angina with history of CAD times 7 stents EKG showing PVCs Hypertension Hyperlipidemia Diabetes mellitus type 2, [id number] Obesity Plan: Chest pain, palpitation, shortness of breath suspect unstable angina with history of CAD times 7 stents: Patient will be admitted and monitored closely on telemetry. Will monitor serial cardiac enzymes. Recheck chest x-ray in the morning. Will provide Lasix. Will continue with aspirin, carvedilol, Lipitor. Cardiology to be consulted to further assess. Will keep the patient NPO as the patient may require cardiac intervention to further evaluate his symptoms. Patient with multiple medical risk factors occluding CAD, hypertension, hyperlipidemia, diabetes, obesity. Will check echocardiogram to further evaluate. EKG showing PVCs: Will monitor on telemetry. Will make sure electrolytes are well controlled. Hypertension: Will continue with carvedilol 25 mg 1 pill twice daily. Will monitor closely. Hyperlipidemia: Will start Lipitor 80 mg daily. Will check fasting lipid panel. Diabetes mellitus type 2, [id number]: Will check A1c. Will hold metformin and glimepiride. Will continue with sliding scale. Obesity: Will address lifestyle modification education. Will check BMI. Discharge Plan: Home Plan to discharge in: 24 Hours - Advance Directives Does patient have a Living Will: No Does patient have a Durable POA for Healthcare: No - Code Status/Comfort Care Code Status Assessed: Yes (Patient full code.) Time Spent Managing Pts Care (In Minutes): 55
[2018-07-03] MEDS ORDERED: MORPHINE 4 MG/ML SYR ONE (15:16)
--- NOTE | 2018-07-03 15:19 | EKG ---
Test Date: 2018-07-03 Test Time: 13:46:03 [employer]: SAY MEASUREMENT RESULTS: Intervals: Rate: 83 WA: 148 QRSD: 94 QT: 366 QTc: 430 [place]: P: 48 WA: 148 QRS: -33 T: 15 INTERPRETIVE STATEMENTS: Sinus rhythm with occasional premature ventricular complexes Left axis deviation Abnormal ECG Compared to ECG 05/15/2017 13:42:27 Ventricular premature complex(es) now present Left-axis deviation now present Electronically Signed On 07-03-18 15:18:45 [employer]ATE AND COST ANALYST by Long Connolly
[2018-07-03 15:35] LABS: Thyroid Stimulating Hormone 3.34 uIU/mL (0.360-3.740)
[2018-07-03] MEDS: INSULIN -REGULAR HUMAN 50 UNIT/0.5 ML ML SQ SCH ×2 (16:15→21:00)
[2018-07-03 16:46] VITALS: BMI 35.2
[2018-07-03] MEDS ORDERED: ENOXAPARIN 40 MG/0.4 ML SQ SCH (17:00)
[2018-07-03] MEDS ORDERED: INFLUENZA VACCINE (for 3y+) 0.5 ML DOSE IMVAC ONE (17:00)
[2018-07-03] MEDS: CARVEDILOL 25 MG TAB PO SCH (17:46)
[2018-07-03] MEDS: FUROSEMIDE 20 MG/ 2ML VIAL IV SCH (17:46)
--- NOTE | 2018-07-03 18:29 | RAD REPORT ---
EXAM DESCRIPTION: US - CP - 07/03/2018 6:22 pm CLINICAL HISTORY: rule out carotid stenosis TIA/CVA COMPARISON: Carotid Artery Bilateral dated 05/22/2016 TECHNIQUE: Real-time sonographic evaluation of both carotid systems was performed. Doppler interroga tion was performed with waveform tracing bilaterally. FINDINGS: Normal high resistance waveforms are noted in both external carotid arteries. The common c arotid arteries and internal carotid arteries show normal low resistance waveforms. No significant plaque formation is seen. Peak systolic and end diastolic velocity values and the ICA/ CCA ratios are in the non-hemodynamically significant range. Antegrade flow seen in both vertebral arteries. IMPRESSION: No significant atherosclerotic changes noted. No evidence of a hemodynamically significant stenosis.
[2018-07-03 18:40] LABS: CKMB Creatine Kinase MB < 1.0 ng/mL (0.3-3.6); Creatine Phosphokinase 120 U/L (39-308); Troponin I < 0.02 ng/mL (0.0-0.045)
[2018-07-03 18:45] LABS: Urine Appearance CLEAR; Urine Bilirubin NEGATIVE (NEG); Urine Blood NEGATIVE (NEG); Urine Color YELLOW; Urine Glucose NEGATIVE (NEG); Urine Protein NEGATIVE (NEG); Urine Urobilinogen 0.2 mg/dL (0.2-1.0); Urine pH 5.5 (5.0-7.0)
[2018-07-03 18:48] LABS: Urine Microscopic Reflex NO UMIC
[2018-07-03] MEDS ORDERED: ATORVASTATIN 80 MG TAB PO SCH (21:00)
--- NOTE | 2018-07-03 21:39 | CON ---
Chief Complaint: Chest pain. History Of Present Illness: Mr. Vallejo has angina infrequently as a rule, but beginning a week ago it s tarted to become more frequent. Today it occurred and he looked ill to coworkers so they insisted he come to the doctor. Since he has been here in the hospital, EKGs and enzymes do not indicate acute CT. He has a history of coronary heart disease with at least 3 cardiac cath procedures; 2 of them ansari d stents, a total of 5 or 6 stents have been used. His last cardiac cath was June 2017, at which time stents were patent. There was no significant stenosis. Medical therapy was recommended. Medications: Outpatient medications have been nitroglycerin, Plavix, aspirin, atorvastatin, citalopr am, Flomax, Coreg, and ascorbic acid. Physical Examination: General: The patient is asymptomatic, obese, alert, oriented, not in distress. Lungs: Clear. Cardiac: S4 gallop, otherwise normal. Abdomen: Soft. Extremities: Normal. No cyanosis, clubbing, or edema. Distal pulses are palpable. Diagnostic Studies: His EKG shows sinus rhythm, occasional PVCs, leftward axis. No infarction, inju ry, or ischemia. Impression: As the patient has unstable angina, he should undergo a cardiac cath. We will do that t omorrow. He will be n.p.o. after midnight but he can eat tonight. We will give him Plavix unless we see that he needs a stent. I think there is a fairly high likelihood that he will be a patient for bypass surgery rather than his fifth or sixth or higher number of stents. We will try and keep him i n a state where he could go through surgery as early as tomorrow or the next day. Thank you very much for your kind referral of Mr. Brett Vallejo. I will follow him with you. ALTHEA/KOBE Voice ID: [id number] Report ID: [id number]
[2018-07-04 01:59] LABS: Absolute Lymphocytes (CBC) 2.4 K/uL (0.7-4.9); Absolute Monocytes 0.7 K/uL (0.1-1.3); Basophils % 0.7 % (0-1.3); Eosinophils % 2.8 % (0-4.4); Hematocrit 43.1 % (39.6-49.0); Lymphocytes % 37.7 % (15.3-44.8); MCH 33.4 pg (27.0-35.0); MCV 96.7 fL (80-100); MPV 8.7 fL (7.6-11.3); Monocytes % 10.8 % (3.3-12.3); RBC Red Blood Cell Count 4.46 M/uL (4.33-5.43)
[2018-07-04 02:18] LABS: BUN Blood Urea Nitrogen 20 mg/dL (7-18); Bicarbonate 29 mmol/L (21-32); Glucose Level 145 mg/dL (74-106); HDL Cholesterol 41 mg/dL (40-60); LDL Cholesterol, Calculated ND (<130); Magnesium 2.2 mg/dL (1.8-2.4); Potassium 3.9 mmol/L (3.5-5.1); Sodium Level 139 mmol/L (136-145)
[2018-07-04 02:26] LABS: CKMB Creatine Kinase MB < 1.0 ng/mL (0.3-3.6); Creatine Phosphokinase 95 U/L (39-308); Troponin I < 0.02 ng/mL (0.0-0.045)
[2018-07-04 03:08] LABS: LDL, Direct 191 mg/dL (100-129)
[2018-07-04] MEDS: CARVEDILOL 25 MG TAB PO SCH (05:48)
[2018-07-04] MEDS ORDERED: PANTOPRAZOLE 40MG TABLET PO SCH (06:30)
--- NOTE | 2018-07-04 06:54 | RAD REPORT ---
EXAM DESCRIPTION: RAD - Chest Pa And Lat (2 Views) - 07/04/2018 6:44 am CLINICAL HISTORY: Shortness of breath COMPARISON: July 03 ; April 2017 TECHNIQUE: PA and lateral views of the chest were obtained. FINDINGS: The lungs are clear of a peripheral mass or consolidation. Vasculature within normal limit s. Heart size within normal limits. Trachea is midline. No pleural effusion or pneumothorax seen. No acute bony finding noted. No aortic abnormality. IMPRESSION: The mild CHF/volume overload has improved from prior day imaging. No new or progressive cardiopulmonary finding.
[2018-07-04] MEDS ORDERED: KCL 20 MEQ/100 mL IVPB 20 MEQ/100 ML BAG IV SCH (07:00)
[2018-07-04] MEDS: INSULIN -REGULAR HUMAN 50 UNIT/0.5 ML ML SQ SCH ×2 (07:30→11:30)
[2018-07-04] MEDS ORDERED: NICOTINE 21 MG/PAT TD SCH (09:00)
[2018-07-04] MEDS ORDERED: ASPIRIN EC 81 MG TAB PO SCH (09:00)
[2018-07-04] MEDS ORDERED: POTASSIUM CL SA 10 MEQ TAB PO ONE (09:00)
[2018-07-04] MEDS: FUROSEMIDE 20 MG/ 2ML VIAL IV SCH (11:03)
[2018-07-04] MEDS ORDERED: HEPA 1000U/500MLS 1,000 UNIT/500 ML BAG IV ONE (12:19)
[2018-07-04] MEDS ORDERED: MIDAZOLAM HCL 2 MG/2 ML INJ ONE ×2 (12:20→13:00)
[2018-07-04] MEDS ORDERED: FENTANYL CITR 100 MCG/2 ML ONE (12:20)
[2018-07-04] MEDS ORDERED: NA CHLORIDE 0.9% 500 ML ONE (12:20)
[2018-07-04] MEDS ORDERED: ATROPINE SULF 1 MG/10 ML SYR IV ONE (12:20)
[2018-07-04] MEDS ORDERED: NA CHLORIDE 0.9% 0 ML ONE (12:20)
--- NOTE | 2018-07-04 12:44 | P.PN ---
Subjective Date of Service: 07/04/18 Primary Care Provider: Dr. Rene; Cardiology-Dr. Willoughby Chief Complaint: Chest pain, palpitation and shortness of breath Subjective: Improving Physical Examination - Vital Signs Temperature: 97.8 F Blood Pressure: 112/73 Pulse: 58 Respirations: 18 Pulse Ox (%): 94 - Physical Exam General: Alert, In no apparent distress, Oriented x3, Cooperative HEENT: Atraumatic, Mucous membr. moist/pink Neck: Supple Respiratory: Clear to auscultation bilaterally, Normal air movement Cardiovascular: Normal pulses, Regular rate/rhythm Gastrointestinal: Normal bowel sounds, Soft and benign, Non-distended, No tenderness, No masses, No rebound, No guarding Musculoskeletal: No erythema, No tenderness, No warmth Integumentary: No tenderness/swelling, No erythema, No warmth, No cyanosis Neurological: Normal speech, Normal strength at 5/5 x4 extr, Normal tone, Normal affect - Studies Laboratory Data (last 24 hrs) 07/03/18 13:03: PT 12.3, INR 1.04 07/03/18 13:03: WBC 6.8, Hgb 15.4, Hct 45.6, Plt Count 188 07/03/18 13:03: Sodium 143, Potassium 4.2, BUN 15, Creatinine 1.20, Glucose 147 H Medications List Reviewed: Yes Assessment & Plan Discharge Plan: Other (Home versus transfer) Plan to discharge in: 24 Hours Physician Review Additional Text: Impression: Chest pain, palpitation, shortness of breath suspect unstable angina with history of CAD times 7 stents EKG showing PVCs Hypertension Hyperlipidemia Diabetes mellitus type 2, [id number] Obesity, BMI 35.3 Plan: Chest pain, palpitation, shortness of breath suspect unstable angina with history of CAD times 7 stents: Patient doing better today. Cardiac enzymes unremarkable. Lipid panel elevated. Continue with current medications. Cardiology plans for heart catheterization. If significantly abnormal patient may require transfer for CABG. Await findings recommendations. EKG showing PVCs: Will monitor on telemetry. Will monitor and replace electrolytes. Hypertension: Will continue with carvedilol 25 mg 1 pill twice daily. Will monitor closely. Hyperlipidemia: Will continue with Lipitor 80 mg daily. Patient may require fenofibrate at discharge. Total triglycerides 43, total cholesterol 271, LDL 191 , HDL 41. Diabetes mellitus type 2, [id number], A1c 7.6: Will continue with sliding scale. Obesity, BMI 35.3: Will continue to address lifestyle modification education. Time Spent Managing Pts Care (In Minutes): 55
--- NOTE | 2018-07-04 13:11 | ECHO ---
HEIGHT: 6 ft 0 in WEIGHT: 260 lb 0 oz DATE OF STUDY: 07/04/[address]: Abdoul Alvarez DO 2-DIMENSIONAL: YES M.MODE: YES DOPPLER: YES COLOR FLOW: YES TDS: NO PORTABLE: NO DEFINITY: NO BUBBLE STUDY: NO DIAGNOSIS: CHEST PAIN/ SHORTNESS OF BREATH CARDIAC HISTORY: CATHERIZATION: YES SURGERY: NO PROSTHETIC VALVE: NO PACEMAKER: NO MEASUREMENTS (cm) DIASTOLIC (NORMALS) SYSTOLIC (NORMALS) IVSd 1.3 (0.6-1.2) LA Diam 4.0 (1.9-4.0) LVEF 62% LVIDd 5.3 (3.5-5.7) LVIDs 3.5 (2.0-3.5) %FS 34% LVPWd 1.2 (0.6-1.2) Ao Diam 3.2 (2.0-3.7) 2 DIMENSIONAL ASSESSMENT: RIGHT ATRIUM: NORMAL LEFT ATRIUM: NORMAL RIGHT VENTRICLE: NORMAL LEFT VENTRICLE: NORMAL TRICUSPID VALVE: NORMAL MITRAL VALVE: NORMAL PULMONIC VALVE: NORMAL AORTIC VALVE: NORMAL PERICARDIAL EFFUSION: NONE AORTIC ROOT: NORMAL LEFT VENTRICULAR WALL MOTION: NORMAL. DOPPLER/COLOR FLOW: NORMAL. COMMENTS: NORMAL 2D ECHO WITH DOPPLER. NO WALL MOTION ABNORMALITY. NO EFFUSION. TECHNOLOGIST: ALEJANDRA MONTERO
[2018-07-04 15:14] VITALS: O2SAT 95
--- NOTE | 2018-07-04 15:26 | P.DS ---
Admission Date: 07/03/18 Discharge Date: 07/04/18 Primary Care Provider: Dr. Rene; Cardiology-Dr. Willoughby Disposition: TRANSFER TO [facility] Discharge Condition: GOOD Reason for Admission: Chest pain, palpitation and shortness of breath Consultations: Cardiology-Dr. Willoughby Procedures: ECHO: Ejection fraction 62% LEFT VENTRICULAR WALL MOTION: NORMAL. DOPPLER/COLOR FLOW: NORMAL. COMMENTS: NORMAL 2D ECHO WITH DOPPLER. NO WALL MOTION ABNORMALITY. NO EFFUSION. Carotid doppler: COMPARISON: Carotid Artery Bilateral dated 05/22/2016 TECHNIQUE: Real-time sonographic evaluation of both carotid systems was performed. Doppler interrogation was performed with waveform tracing bilaterally. FINDINGS: Normal high resistance waveforms are noted in both external carotid arteries. The common carotid arteries and internal carotid arteries show normal low resistance waveforms. No significant plaque formation is seen. Peak systolic and end diastolic velocity values and the ICA/CCA ratios are in the non-hemodynamically significant range. Antegrade flow seen in both vertebral arteries. IMPRESSION: No significant atherosclerotic changes noted. No evidence of a hemodynamically significant stenosis. Heart catheterization: Severe CAD Medical problem list: Chest pain, palpitation, shortness of breath suspect unstable angina with history of CAD times 7 stents status post heart catheterization showing severe CAD. Patient transferred for CABG EKG showing PVCs Hypertension Hyperlipidemia Diabetes mellitus type 2, [id number], A1c 7.6 Tobacco abuse GERD Obesity, BMI 35.3 Brief History of Present Illness: 53-year-old male presented to emergency room with chest pain, palpitation and shortness of breath. Patient reports chest pain, palpitations and shortness of breath over the last several weeks. They have been occurring often on. Today chest pain lasted for about 45 min. He felt lightheaded. Chest pain to the substernal region. The reported some shortness of breath. Patient with past medical history of CAD with 7 stents in the past, hypertension, diabetes, hyperlipidemia and he is a former smoker. Patient was evaluated in the emergency room. Blood pressure within normal range. White count 6.8, hemoglobin 15. Sodium 143, potassium 4.2. Creatinine 1.2 with a GFR 63. BNP 288. Troponin less than 0.02. Chest x-ray showed possible mild CHF. EKG showed some PVCs but no ST elevation. Patient was admitted for further evaluation. When I saw the patient ER, he appeared comfortable. He was without any significant chest pain or shortness of breath at that time. Previous history shows heart catheterization done April of 2017. At that time he had mild plaque in the common iliac artery. He had a patent mid RCA stent, patent proximal/mid/distal circumflex stent. He also had a patent proximal/distal LAD stent. He had minimal diffuse plaquing, some plaquing in the left main about 20 -30%. There was no change in the left main since 2015. He had a normal ejection fraction at that time. At that time he was to continue with his medications and medical management. Finasteride was discontinued at that time due to orthostatic hypotension. Hospital Course: Patient evaluated for chest pain, palpitations and shortness of breath. Unstable angina suspected. Patient with history of CAD x7 stents. Patient seen and evaluated by Cardiology. Heart catheterization showed severe Coronary artery disease. Cardiology recommended transfer for CABG. Cardiology discussed case with cardiovascular surgery. Patient be transferred to [facility] for cardiovascular surgery. Patient has hypertension. Patient to continue with carvedilol 25 mg 1 pill twice daily. Further adjustment can be done by cardiology. Patient has hyperlipidemia. Total triglycerides 483, total cholesterol 271, LDL 191, HDL 41. Patient will continue with Lipitor 80 mg daily. New medication includes fenofibrate 48 mg daily. Patient has diabetes type 2, [id number] with A1c 7.6. Patient will need better control of his diabetes. Medications have been adjusted at discharge. Patient will continue with glimepiride 2 mg 1 pill twice daily. Metformin increased to 1000 mg 1 pill twice daily. Recommendation to maintain blood sugars less 140 fasting and less than 200 after meals. Further adjustment can be done by his PCP. Patient will need better control after cardiovascular surgery intervention. Patient has GERD. Patient will continue with Protonix 40 mg 1 pill once daily. Tobacco cessation education will be provided. Patient with obesity, BMI 35.3. Patient continue with lifestyle modification education. Vital Signs/Physical Exam: Temp Pulse Resp BP Pulse Ox 97.8 F 52 16 112/72 94 07/04/18 12:44 07/04/18 14:55 07/04/18 14:55 07/04/18 14:55 07/04/18 12:44 General: Alert, In no apparent distress, Oriented x3, Cooperative HEENT: Atraumatic Neck: Supple Respiratory: Clear to auscultation bilaterally, Normal air movement Cardiovascular: Normal pulses, Regular rate/rhythm Gastrointestinal: Normal bowel sounds, Soft and benign, Non-distended, No tenderness, No masses, No rebound, No guarding Musculoskeletal: No contractures, No erythema, No tenderness, No warmth Integumentary: No tenderness/swelling, No erythema, No warmth, No cyanosis Neurological: Normal speech, Normal strength at 5/5 x4 extr, Normal tone, Normal affect Laboratory Data at Discharge: WBC 6.3 K/uL (4.3-10.9) 07/04/18 01:34 Hgb 14.9 g/dL (13.6-17.9) 07/04/18 01:34 Hct 43.1 % (39.6-49.0) 07/04/18 01:34 Plt Count 165 K/uL (152-406) 07/04/18 01:34 PT 12.3 SECONDS (9.5-12.5) 07/03/18 13:03 INR 1.04 07/03/18 13:03 Sodium 139 mmol/L (136-145) 07/04/18 01:34 Potassium 3.9 mmol/L (3.5-5.1) 07/04/18 01:34 BUN 20 mg/dL (7-18) H 07/04/18 01:34 Creatinine 1.20 mg/dL (0.55-1.3) 07/04/18 01:34 Glucose 145 mg/dL (74-106) H 07/04/18 01:34 Magnesium 2.2 mg/dL (1.8-2.4) 07/04/18 01:34 Troponin I < 0.02 ng/mL (0.0-0.045) 07/04/18 01:34 Triglycerides 483 mg/dL (<150) H 07/04/18 01:34 Cholesterol 271 mg/dL (<200) H 07/04/18 01:34 LDL Cholesterol Direct 191 mg/dL (100-129) H 07/04/18 01:34 HDL Cholesterol 41 mg/dL (40-60) 07/04/18 01:34 Cholesterol/HDL Ratio 6.61 07/04/18 01:34 Home Medications: Ascorbic Acid [Vitamin C*] 1,000 mg PO DAILY 03/19/15 Carvedilol [Coreg*] 25 mg PO BID 03/19/15 Multivitamin [Multivitamins] 1 tab PO DAILY 02/15/16 Nitroglycerin [Nitrostat*] 0.4 mg SL UD PRN #1 bottle 02/18/16 Atorvastatin Calcium [Lipitor*] 80 mg PO BEDTIME 07/03/18 Glimepiride [Amaryl*] 2 mg PO BIDAC 07/03/18 Fenofibrate [Tricor*] 48 mg PO DAILY #30 tab 07/04/18 Metformin HCl [Glucophage] 1,000 mg PO BID #60 tablet 07/04/18 Pantoprazole Sodium [Protonix] 40 mg PO DAILY #30 tablet. 07/04/18 New Medications: Fenofibrate [Tricor*] 48 mg PO DAILY #30 tab Metformin HCl [Glucophage] 1,000 mg PO BID #60 tablet Pantoprazole Sodium [Protonix] 40 mg PO DAILY #30 tablet. Patient Discharge Instructions: 1. Patient be transferred to [facility] in [place] for cardiovascular surgery intervention. 2. Patient evaluated for chest pain, palpitations and shortness of breath. Unstable angina was suspected. Patient with history of CAD x7 stents. Patient seen and evaluated by Cardiology. Heart catheterization showed severe Coronary artery disease. Cardiology recommended transfer for CABG. Cardiology discussed case with cardiovascular surgery. Patient be transferred to [facility] for cardiovascular surgery. 3. Patient has hypertension. Patient to continue with carvedilol 25 mg 1 pill twice daily. Further adjustment can be done by cardiology. 4. Patient has hyperlipidemia. Total triglycerides 483, total cholesterol 271, LDL 191, HDL 41. Patient will continue with Lipitor 80 mg daily. New medication includes fenofibrate 48 mg daily. 5. Patient has diabetes type 2, [id number] with A1c 7.6. Patient will need better control of his diabetes. Medications have been adjusted at discharge. Patient will continue with glimepiride 2 mg 1 pill twice daily. Metformin increased to 1000 mg 1 pill twice daily. Recommendation to maintain blood sugars less 140 fasting and less than 200 after meals. Further adjustment can be done by his PCP. Patient will need better control after cardiovascular surgery intervention. 6. Patient has GERD. Patient will continue with Protonix 40 mg 1 pill once daily. 7. Tobacco cessation education will be provided. 8. Patient with obesity, BMI 35.3. Patient continue with lifestyle modification education. Diet: AHA Activity: Ad marito Followup: Henri Rene DO, DO [Primary Care Provider] - Time spent managing pt's care (in minutes): 55
[2018-07-04 17:25] VITALS: BP 110/65; TEMP 98
--- NOTE | 2018-07-05 12:35 | OP ---
Date of Procedure: 07/04/2018 Surgeon: Ferny Willoughby MD Graphite Disk Assembler: Clau Salazar. Procedure: Left heart catheterization with selective coronary arteriogram. Indication: HI and coronary artery disease severe with patent stent in the pas t and elevation and . A 6-Bermudian sheath introduced in the right common femoral artery. St arClose was used to close the case. Jimmy catheter 6-Bermudian was used for the left main and right m ain injections. He was found to have patent stent of the circumflex and the RCA. There was some haz iness at the distal left main consistent with a thrombus excised 70-80% ostial LAD stenosi s that goes to the left main with possible thrombus that is 70% distal LAD. Total conscious sedation was 30 minutes. There were no complications or blood loss. Final Diagnosis: Severe coronary artery disease with possible thrombus in the distal left main and o stial left anterior descending with a severe stenosis in the ostial left anterior descending and dist al left anterior descending. Plan: For him to go to [facility] to Dr. Luther Cannon's service for a KINNEY. He w ould have his CD with him to be reviewed by Dr. Cannon for further decisions. BRIDGER/KOBE Voice ID: [id number] Report ID: [id number]
== END 2018-07-04 16:51 | disposition short-term general hospital (02) ==
LOC: ER 12:38 → ERHOLD 14:31 → 4TH 15:46
PROVIDERS: ADMIT Family Medicine; ATTEND Family Medicine
PROC: 4A023N7 Measurement of Cardiac Sampling and Pressure, Left Heart, Percutaneous Approach (ICD-10-PCS; principal; 2018-07-04)
PROC: B201YZZ Plain Radiography of Multiple Coronary Arteries using Other Contrast (ICD-10-PCS; 2018-07-04)
PROC: B205YZZ Plain Radiography of Left Heart using Other Contrast (ICD-10-PCS; 2018-07-04)
DX: I25.110 Atherosclerotic heart disease of native coronary artery with unstable angina pectoris (principal); I10 Essential (primary) hypertension; E78.5 Hyperlipidemia, unspecified; E11.9 Type 2 diabetes mellitus without complications; K21.9 Gastro-esophageal reflux disease without esophagitis; F17.210 Nicotine dependence, cigarettes, uncomplicated; E66.9 Obesity, unspecified; Z68.35 Body mass index [BMI] 35.0-35.9, adult; R00.2 Palpitations; Z95.5 Presence of coronary angioplasty implant and graft
CPT/HCPCS: 36415; 71045; 71046; 80048; 80061; 81003; 82550; 82553; 82962; 83036; 83735; 83880; 84439; 84443; 84484; 85025; 85610; 93005; 93306; 93458; 93880; 96374; 99285; C1893; G0378; J0583; J1650; J1940; J2250; J3010

== ENCOUNTER 2018-08-11 19:41 | Observation (INO) | payer SELFPAY ==
--- OUTSIDE RECORDS SUMMARY | 2018-08-11 19:43 | XMS REPORT | Clinical Summary ---
:1965 Author Organization [facility] Address [address] [place] [address] Care Team Providers Name Role Phone Henri Rene DO Primary Care Provider Allergies No Known Allergies Medications Medication Sig Dispensed Refills Start Date End Date Status citalopram (CeleXA) 20 Take 20 mg by 0 Active MG tablet mouth daily. clopidogrel (PLAVIX) Take 75 mg by 0 Active 75 mg tablet mouth daily. carvedilol (COREG) 25 Take 25 mg by 0 Active MG tablet mouth 2 (two) times a day with meals. atorvastatin (LIPITOR) Take 40 mg by 0 Active 40 MG tablet mouth 2 (two) times a day. aspirin (ECOTRIN) 81 Take 81 mg by 0 Active MG enteric coated mouth daily. tablet nitroglycerin Place 0.4 mg 0 Active (NITROSTAT) 0.4 MG SL under the tablet tongue every 5 (five) minutes as needed for chest pain. ascorbic acid, vitamin Take 500 mg by 0 Active C, (VITAMIN C) 500 MG mouth daily. tablet multivitamin Take 1 tablet 0 Active (THERAGRAN) tablet by mouth daily. ranitidine (ZANTAC) Take 150 mg by 0 Active 150 MG tablet mouth daily. insulin [...] Date Type 2 diabetes mellitus without complication 10/30/2017 Obesity (BMI 30-39.9) 10/30/2017 Essential hypertension 10/30/2017 Unstable angina pectoris 10/28/2017 Encounters Date Type Specialty Care Team Description 10/28/2017 - Hospital Encounter General Internal Sary Slater Unstable angina pectoris (Primary Dx); 10/31/2017 Medicine MD Kari Type 2 diabetes mellitus without complication, without long-term current use of insulin Nolberto Christopher MD after 08/10/2017 Social History Tobacco Use Types Packs/Day Years Used Date Former Smoker Smokeless Tobacco: Current User Alcohol Use Drinks/Week oz/Week Comments Yes 12 Cans of beer 7.2 Sex Assigned at Date Recorded Not on file Job Start Date Occupation Industry Not on file Not on file Not on file Travel History Travel Start Travel End No recent travel history available. Last Filed Vital Signs Vital Sign Reading Time Taken Blood Pressure 132/79 10/31/2017 12:56 PM OIL EXTRACTOR Pulse 53 10/31/2017 12:56 PM OIL EXTRACTOR Temperature 36.3 C (97.4 F) 10/31/2017 12:56 PM OIL EXTRACTOR Respiratory Rate 17 10/31/2017 12:56 PM OIL EXTRACTOR Oxygen Saturation 94% 10/31/2017 12:56 PM OIL EXTRACTOR Inhaled Oxygen Concentration - - Weight 114 kg (251 lb 0 oz) 10/28/2017 11:36 AM OIL EXTRACTOR Height 182.9 cm (6') 10/28/2017 11:36 AM OIL EXTRACTOR Body Mass Index 34.04 10/28/2017 11:36 AM OIL EXTRACTOR Plan of Treatment Health Maintenance Due Date Last Done Comments DIABETIC RETINAL EYE EXAM 1965 DIABETIC FOOT EXAM 1975 URINE MICROALBUMIN 1975 COLON CANCER SCREENING 2015 SHINGLES VACCINES (1 of 2) 2015 INFLUENZA VACCINE 03/29/2018 Procedures Procedure Name Priority Date/Time Associated Comments Diagnosis POC GLUCOSE Routine 10/31/2017 12:57 Results for this PM OIL EXTRACTOR procedure are in the results section. POC GLUCOSE Routine 10/31/2017 9:16 Results for this AM OIL EXTRACTOR procedure are in the results section. VITAMIN D 25 HYDROXY Routine 10/31/2017 5:24 Results for this LEVEL AM OIL EXTRACTOR procedure are in the results section. LIPID PANEL Routine 10/31/2017 5:24 Results for this AM OIL EXTRACTOR procedure are in the results section. POC GLUCOSE Routine 10/30/2017 8:40 Results for this PM OIL EXTRACTOR procedure are in the results section. POC GLUCOSE Routine 10/30/2017 5:24 Results for this PM OIL EXTRACTOR procedure are in the results section. POC GLUCOSE Routine 10/30/2017 12:38 Results for this PM OIL EXTRACTOR procedure are in the results section. CT ANGIOGRAM PE CHEST STAT 10/30/2017 9:39 Results for this AM OIL EXTRACTOR procedure are in the results section. POC GLUCOSE Routine 10/30/2017 7:59 Results for this AM OIL EXTRACTOR procedure are in the results section. POC GLUCOSE Routine 10/29/2017 8:36 Results for this PM OIL EXTRACTOR procedure are in the results section. POC GLUCOSE Routine 10/29/2017 6:14 Results for this PM OIL EXTRACTOR procedure are in the results section. NM MYOCARDIAL PERFUSION Routine 10/29/2017 3:35 Results for this STRESS ONLY PM OIL EXTRACTOR procedure are in the results section. POC GLUCOSE Routine 10/29/2017 12:15 Results for this PM OIL EXTRACTOR procedure are in the results section. CV STRESS TEST Routine 10/29/2017 9:47 Results for this AM OIL EXTRACTOR procedure are in the results section. ECHOCARDIOGRAM 2D Routine 10/29/2017 9:14 Results for this COMPLETE W MMODE AM OIL EXTRACTOR procedure are in SPECTRAL COLOR DOPPLER the results (79099) section. POC GLUCOSE Routine 10/29/2017 7:57 Results for this AM OIL EXTRACTOR procedure are in the results section. ZZESTIMATED GFR Routine 10/29/2017 6:07 Results for this AM OIL EXTRACTOR procedure are in the results section. THYROID STIMULATING Routine 10/29/2017 6:07 Results for this HORMONE AM OIL EXTRACTOR procedure are in the results section. MAGNESIUM LEVEL Routine 10/29/2017 6:07 Results for this AM OIL EXTRACTOR procedure are in the results section. BASIC METABOLIC PANEL Routine 10/29/2017 6:07 Results for this AM OIL EXTRACTOR procedure are in the results section. HC COMPLETE BLD COUNT Routine 10/29/2017 6:07 Results for this W/AUTO DIFF AM OIL EXTRACTOR procedure are in the results section. TROPONIN Routine 10/29/2017 6:07 Results for this AM OIL EXTRACTOR procedure are in the results section. HEMOGLOBIN A1C Routine 10/29/2017 6:07 Results for this AM OIL EXTRACTOR procedure are in the results section. POC GLUCOSE Routine 10/28/2017 9:06 Results for this PM OIL EXTRACTOR procedure are in the results section. TROPONIN Timed 10/28/2017 3:38 Results for this PM OIL EXTRACTOR procedure are in the results section. POC GLUCOSE Routine 10/28/2017 2:42 Results for this PM OIL EXTRACTOR procedure are in the results section. ECG ED PRELIMINARY Routine 10/28/2017 2:30 Results for this INTERPRETATION PM OIL EXTRACTOR procedure are in the results section. ZZESTIMATED GFR STAT 10/28/2017 12:08 Results for this PM OIL EXTRACTOR procedure are in the results section. B NATRIURETIC PEPTIDE STAT 10/28/2017 12:08 Results for this PM OIL EXTRACTOR procedure are in the results section. TROPONIN STAT 10/28/2017 12:08 Results for this PM OIL EXTRACTOR procedure are in the results section. COMPREHENSIVE METABOLIC STAT 10/28/2017 12:08 Results for this PANEL PM OIL EXTRACTOR procedure are in the results section. HC COMPLETE BLD COUNT STAT 10/28/2017 12:08 Results for this W/AUTO DIFF PM OIL EXTRACTOR procedure are in the results section. XR CHEST 2 VW STAT 10/28/2017 12:00 Results for this PM OIL EXTRACTOR procedure are in the results section. ECG 12-LEAD STAT 10/28/2017 11:21 Results for this AM OIL EXTRACTOR procedure are in the results section. after 08/10/2017 Results POC glucose (10/31/2017 12:57 PM OIL EXTRACTOR)Only the most recent of12 resultswithin the time period is included. POC glucose 248 (H) 65 - 99 mg/dL [facility] DEPARTMENT OF PATHOLOGY AND Comment: GENOMIC MEDICINE [facility] Notified RN Meter ID: [id number] Internet Sales Associate: Tejinder Mckenzie Performing Organization Address City/State/Zipcode Phone Number [facility] DEPARTMENT OF PATHOLOGY AND [address] [place] [phone] [employer] MEDICINE Vitamin D 25 hydroxy level (10/31/2017 5:24 AM OIL EXTRACTOR) Vitamin D, 25-hydroxy 22.4 (L) 30.0 - 150.0 [facility] DEPARTMENT OF Comment: ng/mL PATHOLOGY AND GENOMIC [...] alternative methods. Specimen Blood Performing Organization Address City/[facility] Phone Number [facility] DEPARTMENT OF PATHOLOGY AND [address] [place] [address] GENOMIC MEDICINE Lipid panel (10/31/2017 5:24 AM OIL EXTRACTOR) Cholesterol 189 <200 mg/dL [facility] DEPARTMENT OF PATHOLOGY AND GENOMIC MEDICINE Triglycerides 487 (H) <150 mg/dL [facility] DEPARTMENT OF PATHOLOGY AND GENOMIC MEDICINE HDL cholesterol 40 >40 mg/dL [facility] DEPARTMENT OF PATHOLOGY AND GENOMIC MEDICINE LDL cholesterol 100 (H)Comment: Result <100 mg/dL [facility] DEPARTMENT OF obtained by direct LDL PATHOLOGY AND GENOMIC measurement MEDICINE Lipid panel interpretation SeeBelow [facility] DEPARTMENT OF Comment: PATHOLOGY AND GENOMIC Total Cholesterol (mg/dL) MEDICINE <200 Desirable 607-593Dyqddroxof-mwls >=240High Triglycerides (mg/dL) <150 Normal 842-573Uowiseyqmb-prde 200-499High >=500Very high HDL Cholesterol (mg/dL) <40Low (male) <40Low (female) LDL Cholesterol (mg/dL) <100 Optimal 100-129Near or above optimal 795-440Dddrdsudww-cuaw 160-189High >=190Very high Risk Catergories that modify [...] mg/dL) Specimen Plasma specimen Performing Organization Address City/State/Zipcode Phone Number [facility] DEPARTMENT OF PATHOLOGY AND [address] [place] [address] [facility] Angiogram Pe Chest (10/30/2017 9:39 AM OIL EXTRACTOR) Narrative Performed At [facility] PE CHEST CLINICAL HISTORY: SHORTNESS [...] for further assessment. 3.Other findings as above. [facility]-[id number] Procedure Note [facility], Radiology Results Incoming - 10/30/2017 9:52 AM OIL EXTRACTOR EXAMINATION: CT ANGIOGRAM PE CHEST CLINICAL HISTORY: [...] further assessment. 3. Other findings as above. [facility]-[id number] Performing Organization Address City/State/Zipcode Phone Number [facility] [address] [place] [address] CV myocardial perfusion (10/29/2017 3:35 PM OIL EXTRACTOR) Narrative Performed At [facility] Nuclear Cardiology and Cardiac CT [address] [place] [address] Myocardial Perfusion Imaging Report Stress ECG tracings are available in [employer], [employer] and [employer] All ECG interpretations are included in this report Pat.Name:Hailey LANDERS.ID:[id number] .Date: 10/29/2017Refer.MD:JOSELIN MIN MD Exam Time: 9:24:00 AM Study Type:Myocardial Perfusion Imaging Height:72inWeight: 251lb BSA: 2.35 m2 DOBAge:1965,52Y Sex: MALEBP:117/65 HR:50 bpm Nuclear Tech:YASMEEN Chilel/Mickey ARANA Pat. Stat.:Inpatient Room:J816 Nuclear Event ID:[id number] Order ID:[id number] Reason for Study:CAD, prior coronary artery stent, Chest pain, unspecified* History / Clinical:Coronary artery disease, Diabetes, Family history CAD, Hypertension, Obesity Procedures:Stress only Risk Factors:Known Coronary Atherosclerosis, Diabetes, Family History Premature, Hypertension, Obesity Clinical Symptoms:Regadenoson Physical Exam:S1, S2, Clear Lungs Surgery: Serum K+ Date,4.4/10/29/17, Troponin I Date,1)neg x 2/10/28/17 2)/ 3)/, BUN/Creatinine Date,13/0.9/10/29/17 Medications:Aspirin, Coreg, Hydralazine, [...] Radiology Results In - 10/29/2017 3:39 PM [facility] Nuclear Cardiology and Cardiac CT [address] [place] [address] Myocardial Perfusion Imaging Report Stress ECG tracings are available in [employer], [employer] and iodine All ECG interpretations are included in this report Pat.Name: DRAKE LANDERS Meeta.ID: [id number] .Date: 10/29/2017 Refer.MD: JOSELIN MIN MD Exam Time: 9:24:00 AM Study Type:Myocardial Perfusion Imaging Height: 72in Weight: 251lb BSA: 2.35 m2 Age: 6 1965,52Y Sex: MALE BP: 117/65 HR: 50 bpm Nuclear Tech:Magalis Herrera [facility]/Mickey Carpenter [facility] Pat. Stat.:Inpatient Room: [facility] Nuclear Event ID:[id number] Order ID: [id number] Reason for Study:CAD, prior coronary artery stent, Chest pain, unspecified* History / Clinical:Coronary artery disease, Diabetes, Family history CAD, Hypertension, Obesity Procedures:Stress only Risk Factors:Known Coronary Atherosclerosis, Diabetes, Family History Premature, Hypertension, Obesity Clinical Symptoms:Regadenoson Physical Exam:S1, S2, Clear Lungs Surgery: Serum K+ Date, 4.410/29/17, Troponin I Date, 1)neg x 210/28/17 2)/ 3)/, BUN/Creatinine Date, 13/0.910/29/17 Medications:Aspirin, Coreg, Hydralazine, Insulin, Lipitor, Plavix SUMMARY: [...] PM Sandie Ortiz MD Performing Organization Address [facility] [place], [place] Phone Number [facility] [address] [phone] Cv ecg exercise stress (nuclear or echo) (10/29/2017 9:47 AM OIL EXTRACTOR) Resting HR 50 H MUSE Resting BP 119 [facility] MUSE Peak MET Achieved 1.0 [facility] MUSE Protocol Name REGARIN [facility] MUSE Time in Exercise Phase 00:01:00 [facility] MUSE Max Systolic BP 119 [facility] MUSE Max Diastolic BP 65 H MUSE Max Heart Rate 76 H MUSE Max Predicted Heart Rate 168 H MUSE Target HR Formula (220 - Age)*100% H MUSE Test Indication chest pain H MUSE Arrhy During Ex [facility] MUSE ECG Interp Before EX [facility] MUSE ECG Interp During Ex [facility] MUSE Ex Summary Comment [facility] MUSE Overall HR Response to [facility] MUSE Exercise Overall BP Response To H MUSE Exercise Reason for Termination [facility] MUSE Stress Test Impression -Waveform interpreted in report [facility] MUSE associated with image study. No interpretation is provided as part of this Stress ECG report.-Electronically Signed By Angel MARSHALL, Sandie Muniz ([id number]), industrial editor Sher Cox ([id number]) on 10/29/2017 2:29:43 PM Performing Organization Address [facility] [place], [place] Phone Number [facility] [employer] [address] [place] [address] Echocardiogram complete w contrast and 3D if needed (10/29/2017 9:14 AM OIL EXTRACTOR) Narrative Performed At [facility] Echocardiography Report [address] [address] Pat.Name:Hailey LANDERS.ID:[id number] .Date: 10/29/2017Refer.MD:NOLBERTO CHRISTOPHER MD Exam Time: 8:21:00 AMStudy Type:Routine Echo Height:72inWeight: 251lb BSA: 2.35 m2 DOBAge:1965,52Y Sex: MALEBP:123/71 HR:61 bpm Sonogrphr: La Ann, RDCS, RVT Pat. Stat.:Inpatient Room:[facility] Study Status:Final Echo Event ID:[id number] Order ID:[id number] Reason for Study:Chest Pain, Hx AR, PCIs History / Clinical:Chest Pain, Coronary Artery [...] PA systolic pressure. MEASUREMENTS: 2D Parasternal Long [place] Ao An2.3 cmLVPWd1 cm LVOT 2.3 cmLA Ds4.3 cm LVIDd5.3 cmIndex2.3 cm/m Ao Rtd 3.6 cm Index1.5 cm/m LVIDs3.4 cm LV Iqey832.8 g(122-174) LV%fs 35.4 % LVM Index 85.5 g/m2 IVSd 1 cmRWT0.4 LA Sng Plane LA Area 21.6 cm2(8.8-23.4) LA Vol60.3 ml Index25.7 ml/m LA LngAx 6.7 cm RA Sng Plane RA Area 26.8 cm2(8.3-19.5) RA Vol 101.1 ml Index43 ml/m RA LngAx 5.6 cm DOPPLER LVOT Stroke Vol LVOT 2.3 cmLVOT CO4.1 l/min LVOT TVI20.1 cmLVOT CI1.7 l/m/m2 LVOT Tm357 [id number] bpm LVOT SV 83.5 ml Signed 10/29/2017 04:44 PM Anitra Vega M.D. Procedure Note Interface, Radiology Results In - 10/29/2017 4:44 PM [facility] Echocardiography Report [address] [place] [address] Pat.Name: DRAKE LANDERS Pat.ID: [id number] .Date: 10/29/2017 Refer.MD: NOLBERTO CHRISTOPHER MD Exam Time: 8:21:00 AM Study Type:Routine Echo Height: 72in Weight: 251lb BSA: 2.35 m2 Age: 6 1965,52Y Sex: MALE BP: 123/71 HR: 61 bpm Sonogrphr: La Ann RDCS, RVT Pat. Stat.:Inpatient Room: [facility] Study Status:Final Echo Event ID:[id number] Order ID: [id number] Reason for Study:Chest Pain, Hx AR, PCIs History / Clinical:Chest Pain, Coronary Artery [...] PA systolic pressure. MEASUREMENTS: 2D Parasternal Long [place] Ao An 2.3 cm LVPWd 1 cm [...] PM Anitra Vega M.D. Performing Organization Address [facility] Phone Number [facility] [address] [place] [address] Estimated GFR (10/29/2017 6:07 AM OIL EXTRACTOR)Only the most recent of2 resultswithin the time period is included. GFR Non Af Amer 88 mL/min/1.73 m2 [facility] DEPARTMENT OF PATHOLOGY AND GENOMIC MEDICINE GFR Af Amer >90 mL/min/1.73 m2 [facility] DEPARTMENT OF Comment: PATHOLOGY AND GENOMIC Chronic [...] Americans. Specimen Plasma specimen Performing Organization Address City/[facility]/Zipcode Phone Number [facility] DEPARTMENT OF PATHOLOGY AND [address] [place] [address] [employer] MEDICINE Troponin (10/29/2017 6:07 AM OIL EXTRACTOR)Only the most recent of3 resultswithin the time period is included. Troponin <0.30 0.00 - 0.30 ng/mL [facility] DEPARTMENT OF PATHOLOGY Comment: AND GENOMIC MEDICINE 0.30 - 1.49 ng/mlMay indicate increased risk of acute coronary syndrome. >=1.5 ng/mlConsistent with acute myocardial infarction. The diagnostic value of a single normal or non-diagnostic result is questionable.Serial samples at 2-6 hour intervals are required to rule out acute myocardial injury. Specimen Plasma specimen Performing Organization Address City/State/Zipcode Phone Number [facility] DEPARTMENT OF PATHOLOGY AND [address] [phone] GENOMIC MEDICINE CBC with platelet and differential (10/29/2017 6:07 AM OIL EXTRACTOR)Only the most recent of2 resultswithin the time period is included. WBC 5.96 4.50 - 11.00 k/uL [facility] DEPARTMENT OF PATHOLOGY AND GENOMIC MEDICINE RBC 4.23 (L) 4.40 - 6.00 m/uL [facility] DEPARTMENT OF PATHOLOGY AND GENOMIC MEDICINE HGB 13.6 (L) 14.0 - 18.0 g/dL [facility] DEPARTMENT OF PATHOLOGY AND GENOMIC MEDICINE HCT 41.1 41.0 - 51.0 % [facility] DEPARTMENT OF PATHOLOGY AND GENOMIC MEDICINE MCV 97.2 82.0 - 100.0 fL [facility] DEPARTMENT OF PATHOLOGY AND GENOMIC MEDICINE MCH 32.2 27.0 - 34.0 pg [facility] DEPARTMENT OF PATHOLOGY AND GENOMIC MEDICINE MCHC 33.1 31.0 - 37.0 g/dL [facility] DEPARTMENT OF PATHOLOGY AND GENOMIC MEDICINE RDW - SD 43.8 37.0 - 55.0 fL [facility] DEPARTMENT OF PATHOLOGY AND GENOMIC MEDICINE MPV 10.1 8.8 - 13.2 fL [facility] DEPARTMENT OF PATHOLOGY AND GENOMIC MEDICINE Platelet count 131 (L) 150 - 400 k/uL [facility] DEPARTMENT OF PATHOLOGY AND GENOMIC MEDICINE Nucleated RBC 0.00 /100 WBC [facility] DEPARTMENT OF PATHOLOGY AND GENOMIC MEDICINE Neutrophils 48.8 39.0 - 69.0 % [facility] DEPARTMENT OF PATHOLOGY AND GENOMIC MEDICINE Lymphocytes 35.6 25.0 - 45.0 % [facility] DEPARTMENT OF PATHOLOGY AND GENOMIC MEDICINE Monocytes 11.6 (H) 0.0 - 10.0 % [facility] DEPARTMENT OF PATHOLOGY AND GENOMIC MEDICINE Eosinophils 3.0 0.0 - 5.0 % [facility] DEPARTMENT OF PATHOLOGY AND GENOMIC MEDICINE Basophils 0.8 0.0 - 1.0 % [facility] DEPARTMENT OF PATHOLOGY AND GENOMIC MEDICINE Immature granulocytes 0.2Comment: 0.0 - 1.0 % [facility] DEPARTMENT OF "Immature PATHOLOGY AND GENOMIC granulocytes" MEDICINE (promyelocytes, myelocytes, metamyelocytes) Specimen Blood Performing Organization Address [facility] Phone Number [facility] DEPARTMENT OF PATHOLOGY AND [address] [place] [address] Thyroid stimulating hormone (10/29/2017 6:07 AM OIL EXTRACTOR) TSH 4.12 0.27 - 4.20 uIU/mL [facility] DEPARTMENT OF PATHOLOGY AND GENOMIC MEDICINE Specimen Plasma specimen Performing Organization Address [facility] Phone Number [facility] DEPARTMENT OF PATHOLOGY AND [address] [place] [address] Magnesium level (10/29/2017 6:07 AM OIL EXTRACTOR) Magnesium 1.9 1.6 - 2.6 mg/dL [facility] DEPARTMENT OF PATHOLOGY AND GENOMIC MEDICINE Specimen Plasma specimen Performing Organization Address [facility] [place], [place] Phone Number [facility] DEPARTMENT OF PATHOLOGY AND [address] [place] [address] Hemoglobin A1c (10/29/2017 6:07 AM OIL EXTRACTOR) Hemoglobin A1C 8.9 (H) 4.0 - 5.6 % [facility] DEPARTMENT OF PATHOLOGY Comment: AND [facility] HbA1c cutoffs for diagnosing diabetes: 4.0% - 5.6%=normal 5.7% - 6.4%=increased risk for diabetes (prediabetes) >=6.5%=diabetes Goals for glycemic control (ADA 2016) < 7.0%Target for non adults with diabetes. More or less stringent targets may be appropriate for individual patients. <7.5% Target for Children and adolescents with type 1 diabetes. Specimen Blood Performing Organization Address [facility] Phone Number [facility] DEPARTMENT OF PATHOLOGY AND [address] [place] [address] Basic metabolic panel (10/29/2017 6:07 AM OIL EXTRACTOR) Sodium 138 135 - 148 mEq/L [facility] DEPARTMENT OF PATHOLOGY AND GENOMIC MEDICINE Potassium 4.4 3.5 - 5.0 mEq/L [facility] DEPARTMENT OF PATHOLOGY AND GENOMIC MEDICINE Chloride 101 98 - 112 mEq/L [facility] DEPARTMENT OF PATHOLOGY AND GENOMIC MEDICINE CO2 23 (L) 24 - 31 mEq/L [facility] DEPARTMENT OF PATHOLOGY AND GENOMIC MEDICINE Anion gap 14 7 - 15 mEq/L [facility] DEPARTMENT OF PATHOLOGY Comment: AND [facility] Starting from November , anion gap calculation no longer incorporates potassium. Please note the change. BUN 13 6 - 20 mg/dL [facility] DEPARTMENT OF PATHOLOGY AND GENOMIC MEDICINE Creatinine 0.9 0.7 - 1.2 mg/dL [facility] DEPARTMENT OF PATHOLOGY AND GENOMIC MEDICINE Glucose 209 (H) 65 - 99 mg/dL [facility] DEPARTMENT OF PATHOLOGY AND GENOMIC MEDICINE Calcium 9.3 8.3 - 10.2 mg/dL [facility] DEPARTMENT OF PATHOLOGY AND GENOMIC MEDICINE Specimen Plasma specimen Performing Organization Address [facility] [place], [place] Phone Number [facility] DEPARTMENT OF PATHOLOGY AND [address] [place] [phone] GENOMIC MEDICINE ECG ED Preliminary Interpretation - NOT AN ORDER (10/28/2017 2:30 PM OIL EXTRACTOR) Narrative Performed At Sary Slater MD 10/29/20177:21 AM ECG ED Preliminary Interpretation - Not an Order Performed by: SARY SLATER Authorized by: SARY SLATER ECG reviewed by ED Physician in the absence of a financial services assistant: yes Previous ECG: Previous ECG:Unavailable Interpretation: Interpretation: abnormal Rate: ECG rate:61 ECG rate assessment: normal Rhythm: Rhythm: sinus rhythm Ectopy: Ectopy: none QRS: QRS axis:Normal QRS intervals:Normal Conduction: Conduction: normal ST segments: ST segments:Normal T waves: T waves: flattening Flattening:III B natriuretic peptide (10/28/2017 12:08 PM OIL EXTRACTOR) BNP 24 0 - 100 pg/mL [facility] DEPARTMENT OF PATHOLOGY AND GENOMIC MEDICINE Specimen Blood Performing Organization Address [facility] [place], [place] Phone Number [facility] DEPARTMENT OF PATHOLOGY AND [address] [place] [id number] [facility] MEDICINE Comprehensive metabolic panel (10/28/2017 12:08 PM OIL EXTRACTOR) Sodium 138 135 - 148 mEq/L [facility] DEPARTMENT OF PATHOLOGY AND GENOMIC MEDICINE Potassium 4.6 3.5 - 5.0 mEq/L [facility] DEPARTMENT OF PATHOLOGY AND GENOMIC MEDICINE Chloride 99 98 - 112 mEq/L [facility] DEPARTMENT OF PATHOLOGY AND GENOMIC MEDICINE CO2 23 (L) 24 - 31 mEq/L [facility] DEPARTMENT OF PATHOLOGY AND GENOMIC MEDICINE Anion gap 16 (H) 7 - 15 mEq/L [facility] DEPARTMENT OF Comment: PATHOLOGY AND GENOMIC Starting from November , anion gap calculation MEDICINE no longer incorporates potassium. Please note the change. BUN 11 6 - 20 mg/dL [facility] DEPARTMENT OF PATHOLOGY AND GENOMIC MEDICINE Creatinine 1.0 0.7 - 1.2 mg/dL [facility] DEPARTMENT OF PATHOLOGY AND GENOMIC MEDICINE Glucose 326 (H) 65 - 99 mg/dL [facility] DEPARTMENT OF PATHOLOGY AND GENOMIC MEDICINE Calcium 9.6 8.3 - 10.2 mg/dL [facility] DEPARTMENT OF PATHOLOGY AND GENOMIC MEDICINE Protein 7.5 6.3 - 8.3 g/dL [facility] DEPARTMENT OF Comment: PATHOLOGY AND GENOMIC Ovalo 4.6-7.0 g/dL MEDICINE 1 week 4.4-7.6 g/dL 7 months-1year5.1-7.3 g/dL 1-2 years5.6-7.5 g/dL >3 years6.0-8.0 g/dL 18-150 6.3-8.3 g/dL Albumin 3.9 3.5 - 5.0 g/dL [facility] DEPARTMENT OF PATHOLOGY AND GENOMIC MEDICINE A/G ratio 1.1 0.7 - 3.8 [facility] DEPARTMENT OF PATHOLOGY AND GENOMIC MEDICINE Alkaline phosphatase 100 40 - 129 U/L [facility] DEPARTMENT OF PATHOLOGY AND GENOMIC MEDICINE AST 59 (H) 10 - 50 U/L [facility] DEPARTMENT OF PATHOLOGY AND GENOMIC MEDICINE ALT 64 (H) 5 - 50 U/L [facility] DEPARTMENT OF PATHOLOGY AND GENOMIC MEDICINE Total bilirubin 0.5 0.0 - 1.2 mg/dL [facility] DEPARTMENT OF PATHOLOGY AND GENOMIC MEDICINE Specimen Plasma specimen Performing Organization Address City/State[facility] Phone Number [facility] DEPARTMENT OF PATHOLOGY AND [address] [place] [address] GENOMIC MEDICINE XR Chest 2 Vw (10/28/2017 12:00 PM OIL EXTRACTOR) Narrative Performed At EXAMINATION:XR CHEST 2 VW [facility]IANT CLINICAL HISTORY:Chest Pain XR CHEST 2 VWimages are submitted COMPARISON:NONE FINDINGS: The cardiac silhouette is normal in size. The pulmonary vasculature is within normal limits. The lung zones are clear. There is no pleural effusion or pneumothorax. IMPRESSION: 1. There is no acute cardiopulmonary disease. [id number] Procedure Note Interface, Radiology Results Incoming - 10/28/2017 12:05 PM OIL EXTRACTOR EXAMINATION: XR CHEST 2 VW CLINICAL HISTORY: Chest Pain XR CHEST 2 VW images are submitted COMPARISON: NONE FINDINGS: The cardiac silhouette is normal in size. The pulmonary vasculature is within normal limits. The lung zones are clear. There is no pleural effusion or pneumothorax. IMPRESSION: 1. There is no acute cardiopulmonary disease. [id number] Performing Organization Address City/State/Zipcode Phone Number [facility] [address] [place] [address] ECG 12 lead (10/28/2017 11:21 AM OIL EXTRACTOR) Ventricular rate 61 [facility] Atrial rate 61 [facility] MI interval 158 [facility] QRSD interval 102 [facility] QT interval 410 [facility] QTC interval 412 [facility] P axis 1 31 [facility] QRS axis 1 -27 [facility] T wave axis 18 [facility] EKG impression Normal sinus rhythm-Normal ECG-No previous [facility] MUSE ECGs available- Performing Organization Address [facility] Phone Number [facility] MUSE [address] [place] [address] after 08/10/2017 Insurance Payer Benefit Plan / Group Subscriber ID Type Phone Address BCBS BCBS CHOICE PPO/[employer] PPO xxxxxxxxxxxx PPO Advance Directives Patient has advance care planning documents on file. For more information, please contact:Gordy Castaneda[address] [place] [address]
--- OUTSIDE RECORDS SUMMARY | 2018-08-11 19:44 | XMS REPORT | Clinical Summary ---
:1965 Author Organization [facility] Address [address] [place] [address] Care Team Providers Name Role Phone Twan Decker Unavailable Allergies Active Allergy Reactions Severity Noted Date Comments Hydrocodone-Acetaminophen Other (See Comments) 07/06/2018 Light headed Medications Medication Sig Dispensed Refills Start Date End Date Status carvedilol (COREG) 25 Take 25 mg by 0 Active MG tablet mouth 2 (two) times daily with breakfast and dinner. atorvastatin Take 80 mg by 0 Active (LIPITOR) 80 MG mouth daily. tablet aspirin 81 MG EC Take 81 mg by 0 Active tablet mouth daily. ascorbic acid, Take 1,000 mg by 0 Active vitamin C, (VITAMIN mouth daily. C) 1000 MG tablet metFORMIN Take 500 mg by 0 Active (GLUCOPHAGE) 500 MG mouth 2 (two) tablet times daily with breakfast and dinner. glimepiride (AMARYL) Take 2 mg by 0 Active 2 MG tablet mouth 2 (two) times daily. ranitidine (ZANTAC) Take 150 mg by 0 Active 150 MG capsule mouth daily. nitroglycerin Place 0.4 mg 0 Active (NITROSTAT) 0.4 MG SL under the tablet tongue. amiodarone (PACERONE) Take 1 tablet 30 tablet 11 07/11/2018 07/11/2019 Active 200 MG tablet (200 mg total) by mouth daily. lisinopril Take 1 tablet 30 tablet 07/11/2018 07/11/2019 Active (PRINIVIL,ZESTRIL) (2.5 mg total) 2.5 MG tablet by mouth daily. acetaminophen-codeine Take 1 tablet by 30 tablet 0 07/11/2018 07/21/2018 (TYLENOL #3) 300-30 mouth every 4 mg per tablet (four) hours as needed for up to 10 days. 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 Diastolic CHF 07/10/2018 Type 2 diabetes mellitus 07/10/2018 HTN (hypertension) 07/10/2018 JOSE CRUZ (obstructive sleep apnea) 07/10/2018 HLD (hyperlipidemia) 07/10/2018 Postoperative pain 07/07/2018 Acute respiratory insufficiency 07/06/2018 Other shock 07/06/2018 AMI (acute myocardial infarction) 07/04/2018 S/P CABG x 1 Encounters Date Type Specialty Care Team Description 07/10/2018 Travel 07/07/2018 Orders Only General Internal Medicine 07/06/2018 Anesthesia Event Emiliano Thompson AA 07/06/2018 Surgery [facility], [place] CORONARY ROXANE Valdes/MARRY MARSHALL 07/04/2018 - Hospital Encounter Cardiology Davis, S/P CABG x 1 (Primary Dx); 07/11/[address] elevation myocardial infarction ( STEMI) involving left anterior descending (LAD) coronary artery (HCC); Acute respiratory insufficiency; Other shock (HCC); Postoperative pain after 08/10/2017 Family History Medical History Relation Name Comments Cancer Father Cancer Maternal Grandmother Heart disease Maternal Grandmother Stroke Maternal Uncle Diabetes Mother Heart disease Mother Hypertension Mother Stroke Mother Diabetes Paternal Uncle Relation Name Status Comments Father Maternal Grandmother Maternal Uncle Mother Paternal Uncle Social History Tobacco Use Types Packs/Day Years Used Date Never Smoker Smokeless Tobacco: Never Used Alcohol Use Drinks/Week oz/Week Comments Yes 6 Cans of beer 3.6 6 beers a month Sex Assigned at Date Recorded Not on file Job Start Date Occupation Industry Not on file Not on file Not on file Travel History Travel Start Travel End No recent travel history available. Last Filed Vital Signs Vital Sign Reading Time Taken Blood Pressure 103/51 07/11/2018 3:45 PM [employer] Pulse 67 07/11/2018 3:45 PM [employer] Temperature 37.1 C (98.7 F) 07/11/2018 3:45 PM [employer] Respiratory Rate 20 07/11/2018 3:45 PM [employer] Oxygen Saturation 94% 07/11/2018 3:45 PM [employer] Inhaled Oxygen Concentration 60% 07/08/2018 11:40 AM [employer] Weight 116.5 kg (256 lb 12.8 oz) 07/11/2018 8:21 AM [employer] Height 182.9 cm (6') 07/04/2018 6:53 PM [employer] Body Mass Index 34.83 07/11/2018 8:21 AM [employer] Plan of Treatment Not on file Procedures Procedure Name Priority Date/Time Associated Comments Diagnosis REPORT OF PROCEDURE - 07/12/2018 12:23 ENDOSCOPY SCAN PM [employer] RHYTHM STRIP - SCAN 07/12/2018 12:23 PM [employer] URINALYSIS W/ REFLEX STAT 07/11/2018 3:57 Results for this URINE CULTURE PM [employer] procedure are in the results section. POCT-GLUCOSE METER Routine 07/11/2018 12:28 Results for this PM [employer] procedure are in the results section. POCT-GLUCOSE METER Routine 07/11/2018 7:50 Results for this AM [employer] procedure are in the results section. XR CHEST 1 VIEW Routine 07/11/2018 5:05 Results for this PORTABLE/BEDSIDE AM [employer] procedure are in the results section. MAGNESIUM Routine 07/11/2018 4:35 Results for this AM [employer] procedure are in the results section. CBC (HEMOGRAM ONLY) CAITLYN 07/11/2018 4:35 Results for this AM [employer] procedure are in the results section. BASIC METABOLIC PANEL Routine 07/11/2018 4:35 Results for this (7) AM [employer] procedure are in the results section. POCT-GLUCOSE METER Routine 07/10/2018 9:32 Results for this PM [employer] procedure are in the results section. POCT-GLUCOSE METER Routine 07/10/2018 5:47 Results for this PM [employer] procedure are in the results section. B-TYPE NATRIURETIC Routine 07/10/2018 1:38 Results for this FACTOR (BNP) PM [employer] procedure are in the results section. ECG 12-LEAD Routine 07/10/2018 12:43 PM [employer] Procedure Note - Interface, External Ris In - 07/10/2018 12:53 PM [employer] Ventricular Rate 63 BPM Atrial Rate 63 BPM P-R Interval 146 ms QRS Duration 102 ms Q-T Interval 420 ms QTC Calculation(Bazett) 429 ms P Roxton 37 degrees R Roxton -4 degrees T Roxton 45 degrees Sinus rhythm with occasional Premature ventricular complexes Incomplete right bundle branch block Septal infarct (cited on or before 10-JUL-2018) Abnormal ECG When compared with ECG of 08-JUL-2018 07:56, Premature ventricular complexes are now Present Questionable change in initial forces of Septal leads ECG 12-LEAD Routine 07/10/2018 12:43 PM [employer] ECG 12-LEAD Routine 07/10/2018 12:42 PM [employer] POCT-GLUCOSE METER Routine 07/10/2018 12:19 PM [employer] POCT-GLUCOSE METER Routine 07/10/2018 8:22 AM [employer] XR CHEST 1 VIEW Routine 07/10/2018 6:05 AM [employer] Results for this PORTABLE/BEDSIDE procedure are in the results section. MAGNESIUM Routine 07/10/2018 5:03 AM [employer] CBC (HEMOGRAM ONLY) CAITLYN 07/10/2018 5:03 AM [employer] BASIC METABOLIC PANEL (7) Routine 07/10/2018 5:03 AM [employer] POCT-GLUCOSE METER Routine 07/09/2018 9:18 PM [employer] PHOSPHORUS Routine 07/09/2018 12:15 PM [employer] MAGNESIUM Routine 07/09/2018 12:15 PM [employer] POTASSIUM Routine 07/09/2018 12:15 PM [employer] POCT-GLUCOSE METER Routine 07/09/2018 12:02 PM [employer] XR CHEST 1 VIEW Routine 07/09/2018 9:32 AM [employer] Results for this PORTABLE/BEDSIDE procedure are in the results section. POCT-GLUCOSE METER Routine 07/09/2018 8:00 AM [employer] PHOSPHORUS Routine 07/09/2018 4:00 AM [employer] CBC (HEMOGRAM ONLY) CAITLYN 07/09/2018 4:00 AM [employer] MAGNESIUM Routine 07/09/2018 4:00 AM [employer] BASIC METABOLIC PANEL (7) Routine 07/09/2018 4:00 AM [employer] POTASSIUM Routine 07/09/2018 12:10 AM [employer] POCT-GLUCOSE METER Routine 07/08/2018 8:46 PM [employer] ECHOCARDIOGRAM REPORT - SCAN 07/08/2018 7:20 PM [employer] POTASSIUM Routine 07/08/2018 5:54 PM [employer] PHOSPHORUS Routine 07/08/2018 5:54 PM [employer] CALCIUM, IONIZED Routine 07/08/2018 5:54 PM [employer] MAGNESIUM Routine 07/08/2018 5:54 PM [employer] POCT-GLUCOSE METER Routine 07/08/2018 5:15 PM [employer] POCT-GLUCOSE METER Routine 07/08/2018 11:41 AM [employer] XR CHEST 1 VIEW CAITLYN 07/08/2018 9:08 AM [employer] Results for this PORTABLE/BEDSIDE procedure are in the results section. BLOOD GAS, ARTERIAL Routine 07/08/2018 8:21 AM [employer] ECG 12-LEAD Routine 07/08/2018 7:56 AM [employer] Procedure Note - Interface, External Ris In - 07/08/2018 7:04 AM [employer] Ventricular Rate 76 BPM Atrial Rate 76 BPM P-R Interval 144 ms QRS Duration 102 ms Q-T Interval 372 ms QTC Calculation(Bazett) 418 ms P Roxton 39 degrees R Roxton 5 degrees T Roxton 26 degrees Normal sinus rhythm Cannot rule out Anterior infarct , age undetermined Abnormal ECG When compared with ECG of 07-JUL-2018 08:47, Premature ventricular complexes are no longer Present Incomplete right bundle branch block is no longer Present ECG 12-LEAD Routine 07/08/2018 7:56 Results for this AM [employer] procedure are in the results section. POCT-GLUCOSE METER Routine 07/08/2018 5:56 Results for this AM [employer] procedure are in the results section. CBC W/PLT COUNT & Routine 07/08/2018 5:53 Results for this AUTO DIFFERENTIAL AM [employer] procedure are in the results section. PHOSPHORUS Routine 07/08/2018 5:53 Results for this AM [employer] procedure are in the results section. MAGNESIUM Routine 07/08/2018 5:53 Results for this AM [employer] procedure are in the results section. BASIC METABOLIC PANEL Routine 07/08/2018 5:53 Results for this (7) AM [employer] procedure are in the results section. CBC W/PLT COUNT & Routine 07/08/2018 5:53 Results for this AUTO DIFFERENTIAL AM [employer] procedure are in the results section. POCT-GLUCOSE METER Routine 07/07/2018 9:27 Results for this PM [employer] procedure are in the results section. BLOOD GAS, ARTERIAL Routine 07/07/2018 9:24 Results for this PM [employer] procedure are in the results section. IL INSERT Routine 07/07/2018 8:23 Acute respiratory Results for this CATH,ART,PERCUT,SHORT PM [employer] insufficiency procedure are in TERM the results section. OXYGEN SATURATION, STAT 07/07/2018 7:25 Results for this MEASURED PM [employer] procedure are in the results section. 2D ECHO W/ DOPPLER STAT 07/07/2018 6:09 Results for this (CW/PW/COLOR) PM [employer] procedure are in the results section. TRANSFUSION SERVICE 07/07/2018 5:53 REPORT - SCAN PM [employer] POCT-GLUCOSE METER Routine 07/07/2018 4:24 Results for this PM [employer] procedure are in the results section. LACTIC ACID, VENOUS, CAITLYN 07/07/2018 4:20 Results for this WHOLE BLOOD PM [employer] procedure are in the results section. BLOOD GAS, VENOUS STAT 07/07/2018 4:20 Results for this PM [employer] procedure are in the results section. BLOOD GAS, ARTERIAL STAT 07/07/2018 1:19 Results for this PM [employer] procedure are in the results section. (CELLAVISION MANUAL Routine 07/07/2018 12:28 Results for this DIFF) PM [employer] procedure are in the results section. CBC W/PLT COUNT & Routine 07/07/2018 12:28 Results for this AUTO DIFFERENTIAL PM [employer] procedure are in the results section. MAGNESIUM Routine 07/07/2018 12:28 Results for this PM [employer] procedure are in the results section. CALCIUM, IONIZED Routine 07/07/2018 12:28 Results for this PM [employer] procedure are in the results section. BASIC METABOLIC PANEL Routine 07/07/2018 12:28 Results for this (7) PM [employer] procedure are in the results section. CBC W/PLT COUNT & Routine 07/07/2018 12:28 Results for this AUTO DIFFERENTIAL PM [employer] procedure are in the results section. MAGNESIUM Routine 07/07/2018 10:36 Results for this AM [employer] procedure are in the results section. HGB/HCT (H&H) - STAT STAT 07/07/2018 10:36 Results for this LAB AM [employer] procedure are in the results section. GLUCOSE-STAT LAB STAT 07/07/2018 10:36 Results for this AM [employer] procedure are in the results section. POTASSIUM-STAT LAB STAT 07/07/2018 10:36 Results for this AM [employer] procedure are in the results section. SODIUM NA-STAT LAB STAT 07/07/2018 10:36 Results for this AM [employer] procedure are in the results section. RRL CRITICAL LABS STAT 07/07/2018 10:36 Results for this (ABG,NA,K,H&H,GLUCOSE AM [employer] procedure are in ) the results section. ECG 12-LEAD Routine 07/07/2018 8:49 AM [employer] Procedure Note - Interface, External Ris In - 07/07/2018 8:54 AM [employer] Ventricular Rate 65 BPM Atrial Rate 65 BPM P-R Interval 156 ms QRS Duration 102 ms Q-T Interval 416 ms QTC Calculation(Bazett) 432 ms P Roxton 45 degrees R Roxton 4 degrees T Roxton 39 degrees Sinus rhythm with occasional Premature ventricular complexes Incomplete right bundle branch block Borderline ECG When compared with ECG of 07-JUL-2018 08:47, No significant change was found ECG 12-LEAD Routine 07/07/2018 8:47 AM [employer] Procedure Note - Interface, External Ris In - 07/07/2018 8:53 AM [employer] Ventricular Rate 62 BPM Atrial Rate 62 BPM P-R Interval 160 ms QRS Duration 104 ms Q-T Interval 414 ms QTC Calculation(Bazett) 420 ms P Roxton 48 degrees R Roxton 5 degrees T Roxton 43 degrees Sinus rhythm with occasional Premature ventricular complexes Incomplete right bundle branch block Borderline ECG When compared with ECG of 06-JUL-2018 05:21, Incomplete right bundle branch block is now Present ST elevation now present in Inferior leads Nonspecific T wave abnormality no longer evident in Inferior leads Nonspecific T wave abnormality no longer evident in Lateral leads ECG 12-LEAD STAT 07/07/2018 8:47 Results for AM [employer] this procedure are in the results section. ECG 12-LEAD Routine 07/07/2018 8:46 Results for AM [employer] this procedure are in the results section. CBC W/PLT COUNT & AUTO Routine 07/07/2018 4:19 Results for DIFFERENTIAL AM [employer] this procedure are in the results section. PHOSPHORUS Routine 07/07/2018 4:19 Results for AM [employer] this procedure are in the results section. MAGNESIUM Routine 07/07/2018 4:19 Results for AM [employer] this procedure are in the results section. BASIC METABOLIC PANEL (7) Routine 07/07/2018 4:19 Results for AM [employer] this procedure are in the results section. CBC W/PLT COUNT & AUTO Routine 07/07/2018 4:19 Results for DIFFERENTIAL AM [employer] this procedure are in the results section. XR CHEST 1 VIEW Routine 07/07/2018 3:10 Results for PORTABLE/BEDSIDE AM [employer] this procedure are in the results section. POCT-GLUCOSE METER Routine 07/06/2018 10:16 Results for PM [employer] this procedure are in the results section. BLOOD GAS, ARTERIAL STAT 07/06/2018 8:04 Results for PM [employer] this procedure are in the results section. POCT-GLUCOSE METER Routine 07/06/2018 5:19 Results for PM [employer] this procedure are in the results section. PREPARE RBC STAT 07/06/2018 4:52 Results for PM [employer] this procedure are in the results section. BASIC METABOLIC PANEL (7) Routine 07/06/2018 4:51 Results for PM [employer] this procedure are in the results section. LACTIC ACID, ARTERIAL, STAT 07/06/2018 3:54 Results for WHOLE BLOOD PM [employer] this procedure are in the results section. OXYGEN SATURATION, STAT 07/06/2018 3:51 Results for MEASURED PM [employer] this procedure are in the results section. FIBRINOGEN Routine 07/06/2018 3:51 Results for PM [employer] this procedure are in the results section. PT/APTT Routine 07/06/2018 3:51 Results for PM [employer] this procedure are in the results section. PROTHROMBIN TIME/INR Routine 07/06/2018 3:51 Results for PM [employer] this procedure are in the results section. (CELLAVISION MANUAL DIFF) STAT 07/06/2018 3:48 Results for PM [employer] this procedure are in the results section. CBC W/PLT COUNT & AUTO STAT 07/06/2018 3:48 Results for DIFFERENTIAL PM [employer] this procedure are in the results section. CBC W/PLT COUNT & AUTO STAT 07/06/2018 3:48 Results for DIFFERENTIAL PM [employer] this procedure are in the results section. PHOSPHORUS STAT 07/06/2018 3:48 Results for PM [employer] this procedure are in the results section. GLUCOSE STAT 07/06/2018 3:48 Results for PM [employer] this procedure are in the results section. MAGNESIUM STAT 07/06/2018 3:48 Results for PM [employer] this procedure are in the results section. POTASSIUM STAT 07/06/2018 3:48 Results for PM [employer] this procedure are in the results section. SODIUM STAT 07/06/2018 3:48 Results for PM [employer] this procedure are in the results section. BLOOD GAS, ARTERIAL STAT 07/06/2018 3:48 Results for PM [employer] this procedure are in the results section. XR CHEST 1 VIEW Routine 07/06/2018 3:44 Results for PORTABLE/BEDSIDE PM [employer] this procedure are in the results section. PLATELET COUNT STAT 07/06/2018 2:02 Results for PM [employer] this procedure are in the results section. THROMBOELASTOGRAPH (TEG) STAT 07/06/2018 1:55 Results for PM [employer] this procedure are in the results section. POCT-ACT Routine 07/06/2018 1:55 Results for PM [employer] this procedure are in the results section. HGB/HCT (H&H) - STAT LAB STAT 07/06/2018 1:53 Results for PM [employer] this procedure are in the results section. GLUCOSE-STAT LAB STAT 07/06/2018 1:53 Results for PM [employer] this procedure are in the results section. POTASSIUM-STAT LAB STAT 07/06/2018 1:53 Results for PM [employer] this procedure are in the results section. SODIUM NA-STAT LAB STAT 07/06/2018 1:53 Results for PM [employer] this procedure are in the results section. BLOOD GAS, ARTERIAL STAT 07/06/2018 1:53 Results for PM [employer] this procedure are in the results section. FIBRINOGEN STAT 07/06/2018 1:53 Results for PM [employer] this procedure are in the results section. APTT STAT 07/06/2018 1:53 Results for PM [employer] this procedure are in the results section. PROTHROMBIN TIME/INR STAT 07/06/2018 1:53 Results for PM [employer] this procedure are in the results section. RRL CRITICAL LABS STAT 07/06/2018 1:53 Results for (ABG,NA,K,H&H,GLUCOSE) PM [employer] this procedure are in the results section. POCT-ACT Routine 07/06/2018 1:27 Results for PM [employer] this procedure are in the results section. POCT-ACT Routine 07/06/2018 1:09 Results for PM [employer] this procedure are in the results section. HGB/HCT (H&H) - STAT LAB STAT 07/06/2018 1:07 Results for PM [employer] this procedure are in the results section. GLUCOSE-STAT LAB STAT 07/06/2018 1:07 Results for PM [employer] this procedure are in the results section. POTASSIUM-STAT LAB STAT 07/06/2018 1:07 Results for PM [employer] this procedure are in the results section. SODIUM NA-STAT LAB STAT 07/06/2018 1:07 Results for PM [employer] this procedure are in the results section. BLOOD GAS, ARTERIAL STAT 07/06/2018 1:07 Results for PM [employer] this procedure are in the results section. RRL CRITICAL LABS STAT 07/06/2018 1:07 Results for (ABG,NA,K,H&H,GLUCOSE) PM [employer] this procedure are in the results section. BLOOD GAS, VENOUS STAT 07/06/2018 1:07 Results for PM [employer] this procedure are in the results section. HGB/HCT (H&H) - STAT LAB STAT 07/06/2018 12:52 Results for PM [employer] this procedure are in the results section. GLUCOSE-STAT LAB STAT 07/06/2018 12:52 Results for PM [employer] this procedure are in the results section. POTASSIUM-STAT LAB STAT 07/06/2018 12:52 Results for PM [employer] this procedure are in the results section. SODIUM NA-STAT LAB STAT 07/06/2018 12:52 Results for PM [employer] this procedure are in the results section. BLOOD GAS, ARTERIAL STAT 07/06/2018 12:52 Results for PM [employer] this procedure are in the results section. CALCIUM, IONIZED STAT 07/06/2018 12:52 Results for PM [employer] this procedure are in the results section. RRL CRITICAL LABS STAT 07/06/2018 12:52 Results for (ABG,NA,K,H&H,GLUCOSE) PM [employer] this procedure are in the results section. ENDOSCOPIC HARVEST,VEIN 07/06/2018 9:10 Coronary artery AM [employer] disease involving augustine heart with angina pectoris, unspecified vessel or lesion type ([facility]) [place] CORONARY 07/06/2018 9:10 Coronary artery ROXANE/SVG AM [employer] disease involving augustine heart with angina pectoris, unspecified vessel or lesion type ([facility]) POCT-GLUCOSE METER Routine 07/06/2018 7:10 Results for AM [employer] this procedure are in the results section. POCT-ACT Routine 07/06/2018 6:44 Results for AM [employer] this procedure are in the results section. CBC W/PLT COUNT & AUTO Routine 07/06/2018 6:04 Results for DIFFERENTIAL AM [employer] this procedure are in the results section. APTT Routine 07/06/2018 6:04 Results for AM [employer] this procedure are in the results section. CBC W/PLT COUNT & AUTO Routine 07/06/2018 6:04 Results for DIFFERENTIAL AM [employer] this procedure are in the results section. ECG 12-LEAD Routine 07/06/2018 5:21 Results for AM [employer] this procedure are in the results section. CBC W/PLT COUNT & AUTO Routine 07/06/2018 12:32 Results for DIFFERENTIAL AM [employer] this procedure are in the results section. ABORH, MANUAL Routine 07/06/2018 12:32 Results for AM [employer] this procedure are in the results section. TYPE AND SCREEN, Routine 07/06/2018 12:32 Results for AUTOMATED AM [employer] this procedure are in the results section. MAGNESIUM Routine 07/06/2018 12:32 Results for AM [employer] this procedure are in the results section. COMPREHENSIVE METABOLIC Routine 07/06/2018 12:32 Results for PANEL AM [employer] this procedure are in the results section. CBC W/PLT COUNT & AUTO Routine 07/06/2018 12:32 Results for DIFFERENTIAL AM [employer] this procedure are in the results section. PROTHROMBIN TIME/INR Routine 07/06/2018 12:32 Results for AM [employer] this procedure are in the results section. APTT Routine 07/06/2018 12:32 Results for AM [employer] this procedure are in the results section. POCT-GLUCOSE METER Routine 07/05/2018 9:20 Results for PM [employer] this procedure are in the results section. APTT Routine 07/05/2018 6:26 Results for PM [employer] this procedure are in the results section. POCT-GLUCOSE METER Routine 07/05/2018 6:01 Results for PM [employer] this procedure are in the results section. POCT-GLUCOSE METER Routine 07/05/2018 12:37 Results for PM AUTO BODY SERVICE MECHANIC this procedure are in the results section. APTT Routine 07/05/2018 8:37 Results for AM AUTO BODY SERVICE MECHANIC this procedure are in the results section. POCT-GLUCOSE METER Routine 07/05/2018 7:33 Results for AM AUTO BODY SERVICE MECHANIC this procedure are in the results section. XR CHEST 1 VIEW Routine 07/05/2018 4:41 Results for PORTABLE/BEDSIDE AM AUTO BODY SERVICE MECHANIC this procedure are in the results section. CBC W/PLT COUNT & AUTO Routine 07/05/2018 2:00 Results for DIFFERENTIAL AM AUTO BODY SERVICE MECHANIC this procedure are in the results section. APTT Routine 07/05/2018 2:00 Results for AM AUTO BODY SERVICE MECHANIC this procedure are in the results section. B-TYPE NATRIURETIC FACTOR Routine 07/05/2018 2:00 Results for (BNP) AM AUTO BODY SERVICE MECHANIC this procedure are in the results section. PLATELET AGGREGATION: AP Routine 07/05/2018 2:00 Results for FUNCTION SCREEN AM AUTO BODY SERVICE MECHANIC this procedure are in the results section. MAGNESIUM Routine 07/05/2018 2:00 Results for AM AUTO BODY SERVICE MECHANIC this procedure are in the results section. BASIC METABOLIC PANEL (7) Routine 07/05/2018 2:00 Results for AM AUTO BODY SERVICE MECHANIC this procedure are in the results section. CBC W/PLT COUNT & AUTO Routine 07/05/2018 2:00 Results for DIFFERENTIAL AM AUTO BODY SERVICE MECHANIC this procedure are in the results section. POCT-GLUCOSE METER Routine 07/04/2018 9:07 Results for PM [employer] BODY SERVICE MECHANIC this procedure are in the results section. CBC W/PLT COUNT & AUTO Routine 07/04/2018 6:51 Results for DIFFERENTIAL PM AUTO BODY SERVICE MECHANIC this procedure are in the results section. CBC W/PLT COUNT & AUTO Routine 07/04/2018 6:51 Results for DIFFERENTIAL PM [employer]O BODY SERVICE MECHANIC this procedure are in the results section. HEPATIC FUNCTION PANEL Routine 07/04/2018 6:51 Results for PM [employer] BODY SERVICE MECHANIC this procedure are in the results section. LIPID PANEL Routine 07/04/2018 6:51 Results for PM AUTO BODY SERVICE MECHANIC this procedure are in the results section. TSH/FREE T4 IF INDICATED Routine 07/04/2018 6:51 Results for PM [employer] BODY SERVICE MECHANIC this procedure are in the results section. PT/APTT Routine 07/04/2018 6:51 Results for PM AUTO BODY SERVICE MECHANIC this procedure are in the results section. HEMOGLOBIN A1C AP Routine 07/04/2018 6:51 Results for PM AUTO BODY SERVICE MECHANIC this procedure are in the results section. after 08/10/2017 Results EKG-SCANNED (07/12/2018 12:23 PM AUTO BODY SERVICE MECHANIC) Narrative Performed At RHYTHM STRIP - SCAN (07/12/2018 12:23 PM AUTO BODY SERVICE MECHANIC) Narrative Performed At Urinalysis w/Microscopic + Reflex to Culture (07/11/2018 3:57 PM AUTO BODY SERVICE MECHANIC) Color, UA Yellow [facility] Clarity, UA Clear [facility] Specific Vermilion, UA 1.025 1.001 - 1.035 [facility] pH, UA 5.5 5.0 - 8.0 [facility] Protein, UA 20 mg/dL (A) Negative [facility] Glucose, UA Negative Negative [facility] Ketones, UA Negative Negative [facility] Bilirubin, UA Negative Negative [facility] Blood, UA Small (A) Negative [facility] Nitrite, UA Negative Negative [facility] Leukocytes, UA Negative Negative [facility] Urobilinogen, UA 4.0 (H) 0.2 - 1.0 mg/dL [facility] RBC, UA 10 /HPF [facility] WBC, UA 3 /HPF [facility] Mucus Occasional [facility] Squam Epithel, UA <1 /HPF [facility] Hyaline Casts, UA 5 /LPF [facility] Casts 1 /LPF [facility] Specimen Source [facility] Specimen Urine - Urine, Clean Catch Performing Organization Address City/[facility]/Zipcode Phone Number [address] [address] RONDA POC-Glucose meter (07/11/2018 12:28 PM AUTO BODY SERVICE MECHANIC)Only the most recent of23 resultswithin the time period is included. POC-Glucose Meter 151 (H)Comment: TESTED AT 70 - 110 mg/dL [address] [id number] Specimen Blood Performing Organization Address City/[facility] Phone Number [address] [address] [phone] RONDA XR chest 1 view portable / bedside (07/11/2018 5:05 AM AUTO BODY SERVICE MECHANIC)Only the most recent of7 resultswithin the time period is included. Narrative Performed At FINAL REPORT [facility] RAD, CHEST, 1 VIEW, NON DEPT INDICATION: eval pulmonary congestion COMPARISON: Prior day's exam FINDINGS: Portable frontal view of the chest. IMPRESSION: Support Lines: None. Lungs and pleura: Improved aeration with decreasing congestive changes bilaterally. No effusion. No pneumothorax. Heart and mediastinum: Persistent enlargement of the cardiac silhouette. Stable surgical changes. Additional findings: None. Signed: JR Alamo Robert MD Report Verified Date/Time:07/11/2018 08:10:57 Reading Location: [address] Neuro Reading Room Procedure Note Interface, External Ris In - 07/11/2018 8:13 AM AUTO BODY SERVICE MECHANIC FINAL REPORT RAD, CHEST, 1 VIEW, NON DEPT INDICATION: eval pulmonary congestion COMPARISON: Prior day's exam FINDINGS: Portable frontal view of the chest. IMPRESSION: Support Lines: None. Lungs and pleura: Improved aeration with decreasing congestive changes bilaterally. No effusion. No pneumothorax. Heart and mediastinum: Persistent enlargement of the cardiac silhouette. Stable surgical changes. Additional findings: None. Signed: JR Alamo Robert MD Report Verified Date/Time: 07/11/2018 08:10:57 Reading Location: [address] Neuro Reading Room Performing Organization Address City/State/Zipcode Phone Number [facility] CBC (Hemogram only) (07/11/2018 4:35 AM AUTO BODY SERVICE MECHANIC)Only the most recent of3 resultswithin the time period is included. WBC 8.7 3.5 - 10.5 K/L [facility] RBC 3.32 (L) 4.63 - 6.08 M/L [facility] Hemoglobin 10.7 (L) 13.7 - 17.5 GM/DL [facility] Hematocrit 33.0 (L) 40.1 - 51.0 % [facility] MCV 99.4 (H) 79.0 - 92.2 fL [facility] MCH 32.2 25.7 - 32.2 pg [facility] MCHC 32.4 32.3 - 36.5 GM/DL [facility] RDW 12.2 11.6 - 14.4 % [facility] Platelets 179 150 - 450 K/CU MM [facility] MPV 10.0 9.4 - 12.4 fL [facility] nRBC 0 0 - 0 /100 WBC [facility] Specimen Blood Performing Organization Address City/State/Zipcode Phone Number [address] [address] [phone] CENTER Magnesium (07/11/2018 4:35 AM AUTO BODY SERVICE MECHANIC)Only the most recent of12 resultswithin the time period is included. Magnesium 2.1 1.6 - 2.6 mg/dL [facility] Specimen Blood Performing Organization Address City/State/Zipcode Phone Number [facility] [address] [place] [phone] RONDA Basic Metabolic Panel (07/11/2018 4:35 AM AUTO BODY SERVICE MECHANIC)Only the most recent of8 resultswithin the time period is included. Sodium 140 136 - 145 meq/L [facility] Potassium 3.9 3.5 - 5.1 meq/L [facility] Chloride 103 98 - 107 meq/L [facility] CO2 26 22 - 29 meq/L [facility] BUN 17 7 - 21 mg/dL [facility] Creatinine 0.98 0.57 - 1.25 mg/dL [facility] Glucose 148 (H) 70 - 105 mg/dL [facility] Calcium 9.7 8.4 - 10.2 mg/dL [facility] EGFR 80Comment: ESTIMATED GFR IS mL/min/1.73 sq m [facility] NOT ACCURATE [facility] CLEARANCE IN PREDICTING GLOMERULAR FILTRATION RATE. ESTIMATED GFR IS NOT APPLICABLE FOR DIALYSIS PATIENTS. Specimen Blood Performing Organization Address City/[facility]/Zipcode Phone Number [facility] [address] [place] [phone] CENTER B-type Natriuretic Factor (BNP) (07/10/2018 1:38 PM AUTO BODY SERVICE MECHANIC)Only the most recent of2 resultswithin the time period is included. BNP 263 (H) 0 - 100 pg/mL [facility] Specimen Blood - Arm, Left Performing Organization Address [facility] Phone Number [address] [address] RONDA ECG 12 lead (07/10/2018 12:43 PM AUTO BODY SERVICE MECHANIC)Only the most recent of6 resultswithin the time period is included. Narrative Performed At Ventricular Rate 63 BPM GE MUSE Atrial Rate 63 BPM P-R Interval 146 ms QRS Duration 102 ms Q-T Interval 420 ms QTC Calculation(Bazett) 429 ms P Roxton 37 degrees R Roxton -4 degrees T Roxton 45 degrees Sinus rhythm with occasional Premature ventricular complexes Incomplete right bundle branch block Septal infarct (cited on or before 10-JUL-2018) Abnormal ECG When compared with ECG of 08-JUL-2018 07:56, Premature ventricular complexes are now Present Questionable change in initial forces of Septal leads Confirmed by MD Pascual Mahboob ([id number]) on 07/10/2018 1:58:42 PM Procedure Note Interface, External Ris In - 07/10/2018 1:58 PM AUTO BODY SERVICE MECHANIC Ventricular Rate 63 BPM Atrial Rate 63 BPM P-R Interval 146 ms QRS Duration 102 ms Q-T Interval 420 ms QTC Calculation(Bazett) 429 ms P Roxton 37 degrees R Roxton -4 degrees T Roxton 45 degrees Sinus rhythm with occasional Premature ventricular complexes Incomplete right bundle branch block Septal infarct (cited on or before 10-JUL-2018) Abnormal ECG When compared with ECG of 08-JUL-2018 07:56, Premature ventricular complexes are now Present Questionable change in initial forces of Septal leads Confirmed by MD Pascual Mahboob ([id number]) on 07/10/2018 1:58:42 PM Performing Organization Address [facility] Phone Number GE MUSE Potassium (07/09/2018 12:15 PM AUTO BODY SERVICE MECHANIC)Only the most recent of4 resultswithin the time period is included. Potassium 4.0 3.5 - 5.1 meq/L [facility] Specimen Blood - Line, Arterial Narrative Performed At Check Serum Magnesium level 2 hours after IV [facility] magnesium replacement. Check Serum Phosphorus level 4 hours after IV phosphorus replacement or 8 hours after PO replacement completed. Every 8 hours PRN for Creatinine greater than or equal to 2 mg/dL. Performing Organization Address [facility] Phone Number [address] [address] [phone] RONDA Phosphorus (07/09/2018 12:15 PM AUTO BODY SERVICE MECHANIC)Only the most recent of6 resultswithin the time period is included. Phosphorus 1.6 (L) 2.3 - 4.7 mg/dL [facility] Specimen Blood - Line, Arterial Narrative Performed At Check Serum Magnesium level 2 hours after IV [facility] magnesium replacement. Check Serum Phosphorus level 4 hours after IV phosphorus replacement or 8 hours after PO replacement completed. Every 8 hours PRN for Creatinine greater than or equal to 2 mg/dL. Performing Organization Address [facility] Phone Number [address] [address] [phone] RONDA ECHOCARDIOGRAM REPORT - SCAN (07/08/2018 7:20 PM AUTO BODY SERVICE MECHANIC) Narrative Performed At Calcium, Ionized (07/08/2018 5:54 PM AUTO BODY SERVICE MECHANIC)Only the most recent of3 resultswithin the time period is included. Calcium, Ion 1.13 1.12 - 1.27 mmol/L [facility] pH, Blood 7.51 [facility] Specimen Blood Narrative Performed At Check serum Ionized Calcium level after 4 [facility] hours after IV Calcium replacement. Performing Organization Address [facility]/Zipcode Phone Number [facility] [address] [place] [address] [phone] RONDA Blood gas, arterial (07/08/2018 8:21 AM AUTO BODY SERVICE MECHANIC)Only the most recent of8 resultswithin the time period is included. pH, Arterial 7.48 (H) 7.35 - 7.45 [facility] pCO2, Arterial 40 35 - 45 mmHg [facility] pO2, Arterial 92 (H) 80 - 90 mmHg [facility] O2 Sat, Arterial 97.5 (H) 96.0 - 97.0 % [facility] HCO3, Arterial 29 21 - 29 mmol/L [facility] Base Excess, Arterial 4.8 (H) -2.0 - 3.0 mmol/L [facility] Patient Temperature 37.0 C [facility] FIO2 60.0 % [facility] Specimen Blood, Arterial Performing Organization Address City/[facility]/Zipcode Phone Number [facility] [address] [place] [address] [phone] RONDA CBC with platelet count + automated diff (07/08/2018 5:53 AM AUTO BODY SERVICE MECHANIC)Only the most recent of8 resultswithin the time period is included. WBC 8.3 3.5 - 10.5 K/L [facility] RBC 3.15 (L) 4.63 - 6.08 M/L [facility] Hemoglobin 10.4 (L) 13.7 - 17.5 GM/DL [facility] Hematocrit 31.8 (L) 40.1 - 51.0 % [facility] MCV 101.0 (H) 79.0 - 92.2 fL [facility] MCH 33.0 (H) 25.7 - 32.2 pg [facility] MCHC 32.7 32.3 - 36.5 GM/DL [facility] RDW 12.8 11.6 - 14.4 % [facility] Platelets 94 (L) 150 - 450 K/CU MM [facility] MPV 10.7 9.4 - 12.4 fL [facility] nRBC 0 0 - 0 /100 WBC [facility] % Neutros 68 % [facility] % Lymphs 15 % [facility] % Monos 16 % [facility] % Eos 1 % [facility] % Baso 0 % [facility] # Neutros 5.62 (H) 1.78 - 5.38 K/L [facility] # Lymphs 1.26 (L) 1.32 - 3.57 K/L [facility] # Monos 1.31 (H) 0.30 - 0.82 K/L [facility] # Eos 0.04 0.04 - 0.54 K/L [facility] # Baso 0.02 0.01 - 0.08 K/L [facility] Immature 1 0 - 1 % [facility] Granulocytes-[facility] CENTER Specimen Blood - Line, Arterial Performing Organization Address City/State/Zipcode Phone Number [facility] [address] [place] [address] CENTER Insert Arterial Line (J-wire) (07/07/2018 8:23 PM AUTO BODY SERVICE MECHANIC) Narrative Performed At Gallo Lombardi NP 07/07/20188:25 PM Insert Arterial Line (J-wire) Date/Time: 07/07/2018 8:15 PM Performed by: Gallo Lombardi NP Authorized by: Gallo Lombardi NP Consent: The procedure was performed in an emergent situation. Verbal consent obtained. Risks and benefits: risks, benefits and alternatives were discussed Consent given by: patient and spouse Patient understanding: patient states understanding of the procedure being performed Required items: required blood products, implants, devices, and special equipment available Patient identity confirmed: arm band and hospital-assigned identification number Time out: Immediately prior to procedure a "time out" was called to verify the correct patient, procedure, equipment, network support analyst and site/side marked as required. Preparation: Patient was prepped and draped in the usual sterile fashion. Indications: multiple ABGs, respiratory failure and hemodynamic monitoring Location: left radial Sedation: Patient sedated: no Yaya's test normal: yes Needle gauge: 20 Seldinger technique: Seldinger technique used Number of attempts: 1 Post-procedure: dressing applied Post-procedure CMS: normal Oxygen saturation, measured (07/07/2018 7:25 PM AUTO BODY SERVICE MECHANIC)Only the most recent of2 resultswithin the time period is included. O2 Saturation (Measured) 68.6 % [facility] Specimen Blood Narrative Performed At For occult hypoperfusion [facility] Performing Organization Address City/State/Zipcode Phone Number [facility] [address] [place] [address] CENTER 2D Echo W/Doppler(CW/PW/Color) (07/07/2018 6:09 PM AUTO BODY SERVICE MECHANIC) Ejection Fraction [facility] ECHO [facility] Narrative Performed At Transthoracic Echocardiography Report (TTE) [facility] Demographics Patient Name DRAKE VALLEJO Date of Study 07/07/2018 [id number] GenderMale Visit Number [id number] RaceUnknown [id number] Room Number C831 Number Date of Birth1965 Referring Physician Age53 year(s) [address] Howie Guzman MD Fellow Janeth Perry MD Procedure Type of Study TTE procedure:2DECHO W DOPPLER(CW/PW/COLOR) (STAT) Indications:S/P CABG. Clinical History HGB 11.0 HCT 34.1 % AMI, SHOCK, CAD, HTN, HLD, DM, S/P ACB X1 07/06/2008 Contrast Medium: Definity. Amount - 3 ml Height: 72 inches Weight: 115.67 kg (255 lbs) BSA: 2.36 m^2 BMI: 34.58 kg/m^2 HR: 67 bpm BP: 116/89 mmHg Summary 1. All of the LV segments contract normally . LVEF by Estrada's method of disk assessment is normal (55-60%) . 2. Grade 1 diastolic dysfunction (impaired relaxation and low-normal LA pressure) 3. No significant pericardial effusion is visualized. Previous Study No prior exam available for comparison. Signature Findings Rhythm/BPRegular sinus rhythm during the exam. Left Ventricle LV endocardium is partially visualized with IV ul trasound enhancing agent. Th e left ventricle is chamber size (by vol index) is normal (male - LVED vol - 34-74ml/m2). Mi ld concentric LV hypertrophy. Al l of the LV segments contract normally . LV EF by Estrada's method of disk assessment is no rmal (55-60%) . Gr omer 1 diastolic dysfunction (impaired relaxation an d low-normal LA pressure). Left AtriumLA size is normal . Right VentricleThe right ventricular chamber size and systolic fu nction are within normal limits. Right Atrium RA size is normal. Atrial SeptumThe interatrial septum is adequately visualized. Aortic Valve Normal AoV structure and function. Mitral Valve Mild MV leaflet thickening. Tr alexandria mitral regurgitation. Tricuspid ValveTV structure is normal. Mi ld tricuspid regurgitation. Es timated peak systolic PA pressure is 20-25 mmHg + RA pressure. Pulmonic Valve Normal PV structure and function by limited views an d Doppler. AortaAortic root size (SInus of Valsalva diameter) is no rmal . PericardiumNo significant pericardial effusion is visualized. IVC/SVC/PA/PV/PleuralThe inferior vena cava is not well visualized. Chambers/Structures Left Ventricle LVIDd: 4.94 cm LVEDV:115.12 ml LV Septum Diastolic: 1.37 cm LV PW Diastolic: 0.84 cm LVEDV Estrada's:75.09 ml LVESV Estrada's:33.69 ml LVEF Estrada's: 55.1 % LVEDVI: 32 ml/m^2 LVESVI: 14 ml/m^2 LVOT Diameter: 2.65 cm Aorta Ao Root S of Marni.: 3.39 cm Doppler/Quantitative Measurements Mitral Valve MV Peak E-Wave: 0.86 m/sMV Peak A-Wave: 0.77 m/s E/A Ratio: 1.12 Peak Gradient: 2.94 mmHg MV Nicholas. Peak: Aortic Valve Peak Velocity: 1.19 m/sMean Velocity: 0.82 m/s Peak Gradient: 5.62 mmHg Mean Gradient: 3.08 mmHg AV Area (continuity): 5.47 cm^2 AV VTI: 20.03 cm AV DVI: 0.99 LVOT Peak Velocity: 0.98 m/s Peak Gradient: 3.81 mmHg Mean Velocity: 0.65 m/s Mean Gradient: 1.93 mmHg LVOT Diameter: 2.65 cmLVOT VTI: 19.89 cm LVOT Area: 5.52 cm^2LVOT SV:109.65 ml LVOT CO: 7.35 l/min LVOT CI: 3.11 l/min/m^2 Tricuspid Valve TR Velocity: 2.38 m/s TR Gradient: 22.7 mmHg Procedure Note Interface, External Ris In - 07/08/2018 6:55 PM AUTO BODY SERVICE MECHANIC Transthoracic Echocardiography Report (TTE) Demographics Patient Name DRAKE VALLEJO Date of Study 07/07/2018 Gender Male Visit Number [id number] Race Unknown Room Number C831 Number Date of 1965 Referring Physician Age 53 year(s) [address] Howie Guzman MD Fellow Janeth Perry MD Procedure Type of Study TTE procedure:2DECHO W DOPPLER(CW/PW/COLOR) (STAT) Indications:S/P CABG. Clinical History HGB 11.0 HCT 34.1 % AMI, SHOCK, CAD, HTN, HLD, DM, S/P ACB X1 07/06/2008 Contrast Medium: Definity. Amount - 3 ml Height: 72 inches Weight: 115.67 kg (255 lbs) BSA: 2.36 m^2 BMI: 34.58 kg/m^2 HR: 67 bpm BP: 116/89 mmHg Summary 1. All of the LV segments contract normally . LVEF by Estrada's method of disk assessment is normal (55-60%) . 2. Grade 1 diastolic dysfunction (impaired relaxation and low-normal LA pressure) 3. No significant pericardial effusion is visualized. Previous Study No prior exam available for comparison. Signature Findings Rhythm/BP Regular sinus rhythm during the exam. Left Ventricle LV endocardium is partially visualized with IV ultrasound enhancing agent. The left ventricle is chamber size (by vol index) is normal (male - LVED vol - 34-74ml/m2). Mild concentric LV hypertrophy. All of the LV segments contract normally . LVEF by Estrada's method of disk assessment is normal (55-60%) . Grade 1 diastolic dysfunction (impaired relaxation and low-normal LA pressure). Left Atrium LA size is normal . Right Ventricle The right ventricular chamber size and systolic function are within normal limits. Right Atrium RA size is normal. Atrial Septum The interatrial septum is adequately visualized. Aortic Valve Normal AoV structure and function. Mitral Valve Mild MV leaflet thickening. Trace mitral regurgitation. Tricuspid Valve TV structure is normal. Mild tricuspid regurgitation. Estimated peak systolic PA pressure is 20-25 mmHg + RA pressure. Pulmonic Valve Normal PV structure and function by limited views and Doppler. Aorta Aortic root size (SInus of Valsalva diameter) is normal . Pericardium No significant pericardial effusion is visualized. IVC/SVC/PA/PV/Pleural The inferior vena cava is not well visualized. Chambers/Structures Left Ventricle LVIDd: 4.94 cm LVEDV:115.12 ml LV Septum Diastolic: 1.37 cm LV PW Diastolic: 0.84 cm LVEDV Estrada's:75.09 ml LVESV Estrada's:33.69 ml LVEF Estrada's: 55.1 % LVEDVI: 32 ml/m^2 LVESVI: 14 ml/m^2 LVOT Diameter: 2.65 cm Aorta Ao Root S of Marni.: 3.39 cm Doppler/Quantitative Measurements Mitral Valve MV Peak E-Wave: 0.86 m/s MV Peak A-Wave: 0.77 m/s E/A Ratio: 1.12 Peak Gradient: 2.94 mmHg MV Nicholas. Peak: Aortic Valve Peak Velocity: 1.19 m/s Mean Velocity: 0.82 m/s Peak Gradient: 5.62 mmHg Mean Gradient: 3.08 mmHg AV Area (continuity): 5.47 cm^2 AV VTI: 20.03 cm AV DVI: 0.99 LVOT Peak Velocity: 0.98 m/s Peak Gradient: 3.81 mmHg Mean Velocity: 0.65 m/s Mean Gradient: 1.93 mmHg LVOT Diameter: 2.65 cm LVOT VTI: 19.89 cm LVOT Area: 5.52 cm^2 LVOT SV:109.65 ml LVOT CO: 7.35 l/min LVOT CI: 3.11 l/min/m^2 Tricuspid Valve TR Velocity: 2.38 m/s TR Gradient: 22.7 mmHg Performing Organization Address City/State/Zipcode Phone Number [facility] TRANSFUSION SERVICE REPORT - SCAN (07/07/2018 5:53 PM AUTO BODY SERVICE MECHANIC) Narrative Performed At Lactic acid, venous, whole blood (07/07/2018 4:20 PM AUTO BODY SERVICE MECHANIC) Lactate, Venous 1.0 0.5 - 2.2 mmol/L [facility] [facility] Specimen Blood Performing Organization Address City/State/Zipcode Phone Number [facility] [address] [place] [address] CENTER Blood gas, venous (07/07/2018 4:20 PM AUTO BODY SERVICE MECHANIC)Only the most recent of2 resultswithin the time period is included. pH, Conrad 7.39 7.32 - 7.42 [facility] pCO2, Conrad 44 41 - 51 mmHg [facility] pO2, Conrad 29 25 - 40 mmHg [facility] O2 Sat, Conrad 59.6 40.0 - 70.0 % [facility] HCO3, Conrad 26 21 - 29 mmol/L [facility] Base Excess, Conrad 0.6 -2.0 - 3.0 mmol/L [facility] Patient Temperature 35.3 C [facility] FIO2 60.0 % [facility] Specimen Blood Performing Organization Address City/State/Zipcode Phone Number [address] [address] CENTER Manual Differential (07/07/2018 12:28 PM AUTO BODY SERVICE MECHANIC)Only the most recent of2 resultswithin the time period is included. % Neutros 80 % [facility] % Lymphs 9 % [facility] % Monos 8 % [facility] % Bands 3 0 - 10 % [facility] # Neutros 10.72 (H) 1.78 - 5.38 K/ul [facility] # Lymphs 1.21 (L) 1.32 - 3.57 K/ul [facility] # Monos 1.07 (H) 0.30 - 0.82 K/uL [facility] # Bands 0.40 0.00 - 0.80 K/uL [facility] Total Counted 100 [facility] RBC Morphology Normal [facility] WBC Morphology Normal [facility] Platelet Morphology Normal [facility] Artifact Present [facility] Platelet Conc Decreased [facility] Specimen Blood Narrative Performed At Received comment: [facility] User comments: Slide comments: Performing Organization Address City/[facility] Phone Number [address] [address] [phone] RONDA Potassium-Stat Lab (07/07/2018 10:36 AM AUTO BODY SERVICE MECHANIC)Only the most recent of4 resultswithin the time period is included. Potassium 4.2 3.6 - 5.5 meq/L [facility] Specimen Blood, Arterial Performing Organization Address [facility] Phone Number [address] [address] [phone] RONDA Sodium Na-Stat Lab (07/07/2018 10:36 AM AUTO BODY SERVICE MECHANIC)Only the most recent of4 resultswithin the time period is included. Sodium 138 135 - 148 meq/L [facility] Specimen Blood, Arterial Performing Organization Address [facility] Phone Number [address] [address] R[place] Glucose-Stat Lab (07/07/2018 10:36 AM AUTO BODY SERVICE MECHANIC)Only the most recent of4 resultswithin the time period is included. Glucose 194 (H) 70 - 110 mg/dL [facility] Specimen Blood, Arterial Performing Organization Address [facility] Phone Number [address] [address] [phone] RONDA HGB/HCT (H&H)-Stat Lab (07/07/2018 10:36 AM AUTO BODY SERVICE MECHANIC)Only the most recent of4 resultswithin the time period is included. Hemoglobin 12.5 (L) 13.0 - 16.8 g/dL [facility] Hematocrit 37.0 (L) 40.0 - 50.0 % [facility] Specimen Blood, Arterial Performing Organization Address [facility] Phone Number [address] [address] CENTER Prepare RBC (07/06/2018 4:52 PM AUTO BODY SERVICE MECHANIC) CROSSMATCH COMPATIBLE SAFETRACE TX Unit ABO A Pos SAFETRACE TX UNIT NUMBER [id number] SAFETRACE TX Status RETURNED FROM ISSUE SAFETRACE TX Blood Bank Product RED BLOOD CELLS SAFETRACE TX PRODUCT CODE [id number] SAFETRACE TX CROSSMATCH COMPATIBLE SAFETRACE TX Unit ABO A Pos SAFETRACE TX UNIT NUMBER [id number] SAFETRACE TX Status RETURNED FROM ISSUE SAFETRACE TX Blood Bank Product RED BLOOD CELLS SAFETRACE TX PRODUCT CODE [id number] SAFETRACE TX CROSSMATCH COMPATIBLE SAFETRACE TX Unit ABO A Pos SAFETRACE TX UNIT NUMBER [id number] SAFETRACE TX Status RETURNED FROM ISSUE SAFETRACE TX Blood Bank Product RED BLOOD CELLS SAFETRACE TX PRODUCT CODE [id number] SAFETRACE TX CROSSMATCH COMPATIBLE SAFETRACE TX Unit ABO A Pos SAFETRACE TX UNIT NUMBER [id number] SAFETRACE TX Status RETURNED FROM ISSUE SAFETRACE TX Blood Bank Product RED BLOOD CELLS SAFETRACE TX PRODUCT CODE [id number] SAFETRACE TX Performing Organization Address [facility] Phone Number SAFETRACE [place] Lactic acid, arterial, whole blood (07/06/2018 3:54 PM AUTO BODY SERVICE MECHANIC) Lactate, Art 1.2 0.5 - 2.2 mmol/L [facility] Specimen Blood, Arterial Performing Organization Address [facility]/Zipcode Phone Number [address] [address] CENTER PT/aPTT (07/06/2018 3:51 PM AUTO BODY SERVICE MECHANIC)Only the most recent of2 resultswithin the time period is included. Protime 15.4 (H) 11.7 - 14.7 seconds [facility] INR 1.2 <=5.9 [facility] PTT 28.7 22.5 - 36.0 seconds [facility] Specimen Blood Narrative Performed At RECOMMENDED COUMADIN/WARFARIN INR THERAPY [facility] RANGES STANDARD DOSE: 2.0 - 3.0 Includes: PROPHYLAXIS for venous thrombosis, systemic embolization; TREATMENT for venous thrombosis and/or pulmonary embolus. HIGH RISK: Target INR is 2.5-3.5 for patients with mechanical heart valves. Performing Organization Address [facility] Phone Number [address] [address] CENTER Prothrombin time/INR (07/06/2018 3:51 PM AUTO BODY SERVICE MECHANIC)Only the most recent of3 resultswithin the time period is included. Protime 15.4 (H) 11.7 - 14.7 seconds [facility] INR 1.2 <=5.9 [facility] Specimen Blood Narrative Performed At RECOMMENDED COUMADIN/WARFARIN INR THERAPY [facility] RANGES STANDARD DOSE: 2.0 - 3.0 Includes: PROPHYLAXIS for venous thrombosis, systemic embolization; TREATMENT for venous thrombosis and/or pulmonary embolus. HIGH RISK: Target INR is 2.5-3.5 for patients with mechanical heart valves. Performing Organization Address [facility] Phone Number [address] [address] [phone] CENTER Fibrinogen (07/06/2018 3:51 PM AUTO BODY SERVICE MECHANIC)Only the most recent of2 resultswithin the time period is included. Fibrinogen 282 225 - 434 mg/dl [facility] Specimen Blood Performing Organization Address [facility] Phone Number [address] [address] CENTER Sodium (07/06/2018 3:48 PM AUTO BODY SERVICE MECHANIC) Sodium 137 136 - 145 meq/L [facility] Specimen Blood Performing Organization Address City/[facility] Phone Number [address] [address] CENTER Glucose (07/06/2018 3:48 PM AUTO BODY SERVICE MECHANIC) Glucose 193 (H) 70 - 105 mg/dL [facility] Specimen Blood Performing Organization Address [facility] Phone Number [address] [address] CENTER Platelet count (07/06/2018 2:02 PM AUTO BODY SERVICE MECHANIC) Platelets 125 (L) 150 - 450 K/CU MM [facility] Specimen Blood Performing Organization Address [facility] Phone Number [address] [address] [phone] RONDA Thromboelastograph (TEG) (07/06/2018 1:55 PM AUTO BODY SERVICE MECHANIC) TEG Activated Clotting Time 3.8 (L) 4.0 - 7.0 minutes [facility] TEG Fibrinogen Activity 64.5 61.0 - 73.0 degrees [facility] TEG Platelet Aggregation 57.2 55.0 - 65.0 MM [facility] TEG Fibrinolysis 16.0 (H) 0.0 - 5.0 % [facility] TEG-H Activated Clotting Time 4.2 4.0 - 7.0 minutes [facility] TEG-H Fibrinogen Activity 65.6 61.0 - 73.0 degrees [facility] TEG-H Platelet Aggregation 53.0 (L) 55.0 - 65.0 MM [facility] TEG-H Fibrinolysis 0.0 0.0 - 5.0 % [facility] Specimen Blood Performing Organization Address [facility] Phone Number [address] [address] CENTER POC ACTIVATED CLOTTING TIME (07/06/2018 1:55 PM AUTO BODY SERVICE MECHANIC)Only the most recent of4 resultswithin the time period is included. Activated Clotting Time 103Comment: TESTED AT sec [facility] [address] [place] [id number] Specimen Blood Performing Organization Address [facility] Phone Number [address] [address] [phone] CENTER aPTT (07/06/2018 1:53 PM AUTO BODY SERVICE MECHANIC)Only the most recent of6 resultswithin the time period is included. PTT 24.4 22.5 - 36.0 seconds [facility] Specimen Blood Performing Organization Address [facility] Phone Number [address] [address] CENTER Type and screen, automated (07/06/2018 12:32 AM AUTO BODY SERVICE MECHANIC) Ab Scrn NEGATIVEComment: Echo 1 [facility] [place] milk plasma [facility] Specimen Blood - Arm, Left Performing Organization Address [facility] Phone Number [address] [address] ABORH, manual (07/06/2018 12:32 AM AUTO BODY SERVICE MECHANIC) ABO Grouping AB [facility] Rh Factor POS [facility] Specimen Blood - Arm, Left Performing Organization Address [facility] Phone Number [address] [address] [phone] Comprehensive metabolic panel (07/06/2018 12:32 AM AUTO BODY SERVICE MECHANIC) Protein, Total 8.0Comment: Specimen 6.0 - 8.3 gm/dL [facility] slightly hemolyzed [facility] Albumin 4.1Comment: Specimen 3.5 - 5.0 g/dL [facility] slightly hemolyzed [facility] Alkaline Phosphatase 92 40 - 150 U/L [facility] Total Bilirubin 0.5Comment: Specimen 0.2 - 1.2 mg/dL [facility] slightly hemolyzed [facility] Sodium 137 136 - 145 meq/L [facility] Potassium 3.9Comment: Specimen 3.5 - 5.1 meq/L [facility] slightly hemolyzed [facility] Chloride 101 98 - 107 meq/L [facility] CO2 19 (L) 22 - 29 meq/L [facility] BUN 25 (H) 7 - 21 mg/dL [facility] Creatinine 1.44 (H)Comment: 0.57 - 1.25 mg/dL [facility] Specimen slightly [facility] hemolyzed Glucose 193 (H) 70 - 105 mg/dL [facility] Calcium 9.4 8.4 - 10.2 mg/dL [facility] AST 58 (H)Comment: Specimen 5 - 34 U/L [facility] slightly hemolyzed [facility] ALT 63 (H)Comment: Specimen 6 - 55 U/L [facility] slightly hemolyzed [facility] EGFR 51Comment: ESTIMATED GFR mL/min/1.73 sq m [facility] IS NOT ACCURATE [facility] CREATININE CLEARANCE IN PREDICTING GLOMERULAR FILTRATION RATE. ESTIMATED GFR IS NOT APPLICABLE FOR DIALYSIS PATIENTS. Specimen Blood - Arm, Left Narrative Performed At Specimen markedly lipemic [facility] Performing Organization Address City/State/Zipcode Phone Number [facility] [address] [place] [address] CENTER Platelet Aggregation: Function Screen (07/05/2018 2:00 AM AUTO BODY SERVICE MECHANIC) Weak ADP 84 60 - 91 % [facility] Plt. Function Screen 60-100% indicates [facility] Interpretation normal platelet [facility] function Pathologist: Cindy Velasquez [facility] (electronic [facility] signature) Platelets 175 150 - 450 K/CU MM [facility] Specimen Blood Narrative Performed At Platelet Function Screen results may be [facility] falsely low with platelet counts <100,000/cu mm. Performing Organization Address City/State/Zipcode Phone Number [address] [address] CENTER TSH/Free T4 If Indicated (07/04/2018 6:51 PM AUTO BODY SERVICE MECHANIC) TSH 4.44 0.35 - 4.94 uIU/mL [facility] Specimen Blood Performing Organization Address City/[facility] Phone Number [address] [address] [phone] CENTER Hemoglobin A1c (07/04/2018 6:51 PM AUTO BODY SERVICE MECHANIC) Hemoglobin A1C 7.0 (H) 4.3 - 6.1 % [facility] Specimen Blood Performing Organization Address [facility] Phone Number [address] [address] CENTER Hepatic function panel (07/04/2018 6:51 PM AUTO BODY SERVICE MECHANIC) Protein, Total 7.5 6.0 - 8.3 gm/dL [facility] Albumin 4.3 3.5 - 5.0 g/dL [facility] Total Bilirubin 0.9 0.2 - 1.2 mg/dL [facility] Bilirubin, Direct 0.3 0.1 - 0.5 mg/dL [facility] Alkaline Phosphatase 89 40 - 150 U/L [facility] AST 76 (H) 5 - 34 U/L [facility] ALT 72 (H) 6 - 55 U/L [facility] Specimen Blood Performing Organization Address City/[facility] Phone Number [address] [address] CENTER Lipid panel (07/04/2018 6:51 PM AUTO BODY SERVICE MECHANIC) Triglycerides 458 mg/dL [facility] Cholesterol 285 mg/dL [facility] HDL 42 mg/dL [facility] Specimen Blood Narrative Performed At Calculated LDL not valid if triglyceride >400 [facility] mg/dL Triglyceride Reference Range: Low Risk <150 [id number] High Risk 200-499 Very High Risk>=500 Cholesterol Reference Range: Low Risk <200 [id number] High Risk>240 HDL Cholesterol Reference Range: Low Risk >=60 High Risk <40 LDL Cholesterol Reference Range: Optimal<100 Near [id number] Very High >=190 Performing Organization Address City/State/[facility] Phone Number [facility] [address] [place] [address] [phone] CENTER after 08/10/2017 Advance Directives For more information, please contact:[address] [phone] Code Status Date Activated Date Inactivated Comments Full Code 07/10/2018 11:38 AM This code status was determined by: Patient Full Code 07/05/2018 6:50 PM 07/06/2018 2:46 PM This code status was determined by: Patient Full Code 07/04/2018 6:07 PM 07/05/2018 6:50 PM This code status was determined by: Patient Full Code 07/04/2018 6:04 PM 07/04/2018 6:07 PM This code status was determined by: Patient
--- OUTSIDE RECORDS SUMMARY | 2018-08-11 19:45 | XMS REPORT ---
:1965 [facility] Address [address] [place] [address] Care Team Providers Name Role Phone DONALDO JUSTICE Unavailable Unavailable Problems This patient has no known problems. Allergies, Adverse Reactions, Alerts This patient has no known allergies or adverse reactions. Medications This patient has no known medications. Results Test Description Test Time Test Comments Text Results Atomic Results Result Comments URINALYSIS W/ REFLEX URINE CULTURE 2018-07-11 16:24:00 Test Item Value Reference Range Comments COLOR (BEAKER) (test kvza=800) Yellow CLARITY (BEAKER) (test rssj=218) Clear SPECIFIC GRAVITY UA (BEAKER) (test slpq=404) 1.025 1.001-1.035 PH UA (BEAKER) (test fhuc=982) 5.5 5.0-8.0 PROTEIN UA (BEAKER) (test ifly=144) 20 mg/dL Negative GLUCOSE UA (BEAKER) (test kwud=584) Negative Negative KETONES UA (BEAKER) (test lwme=082) Negative Negative BILIRUBIN UA (BEAKER) (test npga=205) Negative Negative BLOOD UA (BEAKER) (test rngs=935) Small Negative NITRITE UA (BEAKER) (test ezef=141) Negative Negative LEUKOCYTE ESTERASE UA (BEAKER) (test bjzm=837) Negative Negative UROBILINOGEN UA (BEAKER) (test lutd=971) 4.0 mg/dL 0.2-1.0 RBC UA (BEAKER) (test mapn=171) 10 /HPF WBC UA (BEAKER) (test wvnv=881) 3 /HPF MUCUS (BEAKER) (test emcq=7972) Occasional SQUAMOUS EPITHELIAL (BEAKER) (test nsdl=141) < /HPF HYALINE CASTS (BEAKER) (test axxp=474) 5 /LPF CASTS (BEAKER) (test kwkb=1878) 1 /LPF SOURCE(BEAKER) (test shbd=0726) POCT-GLUCOSE [id number] 12:36:00 Test Item Value Reference Range Comments POC-GLUCOSE METER (BEAKER) 151 mg/dL 70-110 TESTED AT [facility] [address] [facility] (test mefv=6693) [facility] [address] POCT-GLUCOSE [id number] 08:14:00 Test Item Value Reference Range Comments POC-GLUCOSE METER (BEAKER) 159 mg/dL 70-110 TESTED AT [place] [id number] [facility] (test uhze=5755) [facility] [address] RAD, CHEST, 1 VIEW, NON [id number] 08:10:00Reason for exam:->eval pulmonary congestionShould this be performed at the bedside?->YesFINAL REPORT RAD, CHEST, 1 VIEW, NON DEPT INDICATION: eval pulmonary congestion COMPARISON: Prior day's exam FINDINGS: Portable frontal view of the chest. IMPRESSION: Support Lines: None. Lungs and pleura: Improved aeration with decreasing congestive changes bilaterally. No effusion. No pneumothorax.Heart and mediastinum: Persistent enlargement of the cardiac silhouette. Stable surgical changes.Additional findings: None. Signed: JR Alamo Robert MDReport Verified Date/Time: 07/11/2018 08:10:57 Reading Location: [facility] C0[facility] Neuro Reading Room [id number] 05:02:00 Test Item Value Reference Range Comments MAGNESIUM (BEAKER) (test xjah=073) 2.1 mg/dL 1.6-2.6 BASIC METABOLIC [id number] 05:02:00 Test Item Value Reference Range Comments SODIUM (BEAKER) (test 140 meq/L 136-145 pcit=426) POTASSIUM (BEAKER) (test 3.9 meq/L 3.5-5.1 elmc=105) CHLORIDE (BEAKER) (test 103 meq/L 98-107 wfxn=752) CO2 (BEAKER) (test 26 meq/L 22-29 fhvv=614) BLOOD UREA NITROGEN 17 mg/dL 7-21 (BEAKER) (test uuev=499) CREATININE (BEAKER) (test 0.98 mg/dL 0.57-1.25 kvfw=315) GLUCOSE RANDOM (BEAKER) 148 mg/dL 70-105 (test pmee=047) CALCIUM (BEAKER) (test 9.7 mg/dL 8.4-10.2 nhhg=783) EGFR (BEAKER) (test 80 mL/min/1.73 sq m ESTIMATED GFR IS NOT jiwo=0018) ACCURATE CREATININE CLEARANCE IN PREDICTING GLOMERULAR FILTRATION RATE. ESTIMATED GFR IS NOT APPLICABLE FOR DIALYSIS PATIENTS. CBC (HEMOGRAM ONLY)2018-07-11 04:43:00 Test Item Value Reference Range Comments WHITE BLOOD CELL COUNT (BEAKER) (test sjaz=779) 8.7 K/ L 3.5-10.5 RED BLOOD CELL COUNT (BEAKER) (test dtba=048) 3.32 M/ L 4.63-6.08 HEMOGLOBIN (BEAKER) (test cxym=887) 10.7 GM/DL 13.7-17.5 HEMATOCRIT (BEAKER) (test efbo=111) 33.0 % 40.1-51.0 MEAN CORPUSCULAR VOLUME (BEAKER) (test negq=901) 99.4 fL 79.0-92.2 MEAN CORPUSCULAR HEMOGLOBIN (BEAKER) (test 32.2 pg 25.7-32.2 dadf=019) MEAN CORPUSCULAR HEMOGLOBIN CONC (BEAKER) (test 32.4 GM/DL 32.3-36.5 vdla=196) RED CELL DISTRIBUTION WIDTH (BEAKER) (test 12.2 % 11.6-14.4 cala=838) PLATELET COUNT (BEAKER) (test ufxm=922) 179 K/CU MM 150-450 MEAN PLATELET VOLUME (BEAKER) (test albp=126) 10.0 fL 9.4-12.4 NUCLEATED RED BLOOD CELLS (BEAKER) (test 0 /100 WBC 0-0 vtsk=945) POCT-GLUCOSE [id number] 21:35:00 Test Item Value Reference Range Comments POC-GLUCOSE METER (BEAKER) 172 mg/dL 70-110 TESTED AT [facility] [address] [facility] (test bngr=2916) [facility] [address] POCT-GLUCOSE [id number] 17:50:00 Test Item Value Reference Range Comments POC-GLUCOSE METER (BEAKER) 142 mg/dL 70-110 TESTED AT [address] (test fxyn=5580) [facility] [address] B-TYPE NATRIURETIC FACTOR (BNP)2018-07-10 14:23:00 Test Item Value Reference Range Comments B-TYPE NATRIURETIC PEPTIDE (BEAKER) (test 263 pg/mL 0-100 hugi=533) POCT-GLUCOSE [id number] 12:30:00 Test Item Value Reference Range Comments POC-GLUCOSE METER (BEAKER) 162 mg/dL 70-110 TESTED AT [address] (test fmzx=9339) [place] [id number] POCT-GLUCOSE [id number] 08:28:00 Test Item Value Reference Range Comments POC-GLUCOSE METER (BEAKER) 248 mg/dL 70-110 TESTED AT [address] (test rqbt=0469) [place] [address] RAD, CHEST, 1 VIEW, NON [id number] 07:32:00Reason for exam:->eval pulmonary congestionShould this be performed at the bedside?->YesFINAL REPORT RAD, CHEST, 1 VIEW, NON DEPT INDICATION: eval pulmonary congestion COMPARISON: Prior day's exam FINDINGS: Portable frontal view of the chest. IMPRESSION: Support Lines: Right IJ central venous catheter has been. Lungs and pleura: Basilar subsegmental atelectasis most prominent on the left. No new significant consolidation. No pneumothorax.Heart and mediastinum: Stable contours. Stable surgical changes.Additional findings: None. Signed: JR Alamo Robert MDReport Verified Date/Time: 07/10/2018 07:32:04 Reading Location: [facility] C013V Neuro Reading Room [id number] 06: 04:00 Test Item Value Reference Range Comments MAGNESIUM (BEAKER) (test zbpb=583) 2.3 mg/dL 1.6-2.6 BASIC METABOLIC [id number] 06:04:00 Test Item Value Reference Range Comments SODIUM (BEAKER) (test 143 meq/L 136-145 qicp=666) POTASSIUM (BEAKER) (test 4.0 meq/L 3.5-5.1 hovd=054) CHLORIDE (BEAKER) (test 105 meq/L 98-107 ubux=501) CO2 (BEAKER) (test 29 meq/L 22-29 ralz=884) BLOOD UREA NITROGEN 16 mg/dL 7-21 (BEAKER) (test dift=801) CREATININE (BEAKER) (test 1.07 mg/dL 0.57-1.25 oxws=864) GLUCOSE RANDOM (BEAKER) 133 mg/dL 70-105 (test snlf=284) CALCIUM (BEAKER) (test 9.7 mg/dL 8.4-10.2 mxim=542) EGFR (BEAKER) (test 72 mL/min/1.73 sq m ESTIMATED GFR IS NOT snjv=4996) ACCURATE CREATININE CLEARANCE IN PREDICTING GLOMERULAR FILTRATION RATE. ESTIMATED GFR IS NOT APPLICABLE FOR DIALYSIS PATIENTS. CBC (HEMOGRAM ONLY)2018-07-10 05:59:00 Test Item Value Reference Range Comments WHITE BLOOD CELL COUNT (BEAKER) (test ctbx=652) 7.1 K/ L 3.5-10.5 RED BLOOD CELL COUNT (BEAKER) (test wrth=034) 3.50 M/ L 4.63-6.08 HEMOGLOBIN (BEAKER) (test ysvj=323) 11.6 GM/DL 13.7-17.5 HEMATOCRIT (BEAKER) (test cgxl=656) 35.7 % 40.1-51.0 MEAN CORPUSCULAR VOLUME (BEAKER) (test zzcn=418) 102.0 fL 79.0-92.2 MEAN CORPUSCULAR HEMOGLOBIN (BEAKER) (test 33.1 pg 25.7-32.2 enko=121) MEAN CORPUSCULAR HEMOGLOBIN CONC (BEAKER) (test 32.5 GM/DL 32.3-36.5 ptuy=173) RED CELL DISTRIBUTION WIDTH (BEAKER) (test 12.4 % 11.6-14.4 bkuf=905) PLATELET COUNT (BEAKER) (test rtzb=612) 173 K/CU MM 150-450 MEAN PLATELET VOLUME (BEAKER) (test cqjf=044) 10.7 fL 9.4-12.4 NUCLEATED RED BLOOD CELLS (BEAKER) (test 0 /100 WBC 0-0 osop=906) POCT-GLUCOSE [id number] 21:23:00 Test Item Value Reference Range Comments POC-GLUCOSE METER (BEAKER) 166 mg/dL 70-110 TESTED AT [address] (test tppr=6819) [place] [address] [id number] 12:50:00 Test Item Value Reference Range Comments POTASSIUM (BEAKER) (test pieo=650) 4.0 meq/L 3.5-5.1 Check Serum Magnesium level 2 hours after IV magnesium replacement.Check Serum Phosphorus level 4 hours after IV phosphorus replacement or 8 hours after PO replacement completed.Every 8 hours PRN for Creatinine greater than or equal to 2 mg/dL.[id number] 12:50:00 Test Item Value Reference Range Comments MAGNESIUM (BEAKER) (test khzb=698) 2.3 mg/dL 1.6-2.6 Check Serum Magnesium level 2 hours after IV magnesium replacement.Check Serum Phosphorus level 4 hours after IV phosphorus replacement or 8 hours after PO replacement completed.Every 8 hours PRN for Creatinine greater than or equal to 2 mg/dL.[id number] 12:50:00 Test Item Value Reference Range Comments PHOSPHORUS (BEAKER) (test jukg=073) 1.6 mg/dL 2.3-4.7 Check Serum Magnesium level 2 hours after IV magnesium replacement.Check Serum Phosphorus level 4 hours after IV phosphorus replacement or 8 hours after PO replacement completed.Every 8 hours PRN for Creatinine greater than or equal to 2 mg/dL.POCT-GLUCOSE [id number] 12:19:00 Test Item Value Reference Range Comments POC-GLUCOSE METER (BEAKER) 255 mg/dL 70-110 TESTED AT [address] (test bqdf=8340) [place] [address] RAD, CHEST, 1 VIEW, NON [id number] 09:46:00while patient is intubated or has chest tubes.Reason for exam:->s/p CABGShould this be performed at the bedside?->YesFINAL REPORT CHEST ONE VIEW HISTORY: Status post coronary artery bypass surgery COMPARISON: 07/08/2018 FINDINGS: Single portable AP examination of the chest was performed. Interval decrease in the left lower lobe atelectasis. Presented visualize mild pulmonary edema has also resolved. Minimal left pleural effusion. Right lung clear. No pneumothorax. The cardiac shadow is enlarged, unchanged. Right central venous catheter tip is in the SVC region. Signed: Aga Zafar MDReportVerified Date/ Time: 07/09/2018 09:46:04 Reading Location: [facility] C013T Transitional Reading Room POCT- GLUCOSE [id number] 08:01:00 Test Item Value Reference Range Comments POC-GLUCOSE METER (BEAKER) 173 mg/dL 70-110 TESTED AT [facility] [address] [facility] (test bgcf=0916) [facility] [address] [id number] 04:58:00 Test Item Value Reference Range Comments PHOSPHORUS (BEAKER) (test srsx=987) 2.3 mg/dL 2.3-4.7 Check Serum Phosphorus level 4 hours after IV phosphorus replacement or 8 hours after PO replacementcompleted.[id number] 04:58:00 Test Item Value Reference Range Comments MAGNESIUM (BEAKER) (test pcwj=134) 2.3 mg/dL 1.6-2.6 Check Serum Phosphorus level 4 hours after IV phosphorus replacement or 8 hours after PO replacementcompleted.BASIC METABOLIC [id number] 04:58:00 Test Item Value Reference Range Comments SODIUM (BEAKER) (test 143 meq/L 136-145 qbrx=109) POTASSIUM (BEAKER) (test 4.0 meq/L 3.5-5.1 pbrr=453) CHLORIDE (BEAKER) (test 109 meq/L 98-107 lxoh=674) CO2 (BEAKER) (test 27 meq/L 22-29 tipe=610) BLOOD UREA NITROGEN 12 mg/dL 7-21 (BEAKER) (test jpgl=251) CREATININE (BEAKER) (test 0.85 mg/dL 0.57-1.25 cqol=249) GLUCOSE RANDOM (BEAKER) 146 mg/dL 70-105 (test pnwk=151) CALCIUM (BEAKER) (test 8.8 mg/dL 8.4-10.2 hbab=177) EGFR (BEAKER) (test 94 mL/min/1.73 sq m ESTIMATED GFR IS NOT exdn=9009) ACCURATE CREATININE CLEARANCE IN PREDICTING GLOMERULAR FILTRATION RATE. ESTIMATED GFR IS NOT APPLICABLE FOR DIALYSIS PATIENTS. Check Serum Phosphorus level 4 hours after IV phosphorus replacement or 8 hours after PO replacementcompleted.CBC (HEMOGRAM ONLY)2018-07-09 04:38:00 Test Item Value Reference Range Comments WHITE BLOOD CELL COUNT (BEAKER) (test hkal=382) 7.8 K/ L 3.5-10.5 RED BLOOD CELL COUNT (BEAKER) (test wjfp=096) 3.12 M/ L 4.63-6.08 HEMOGLOBIN (BEAKER) (test vipb=564) 10.2 GM/DL 13.7-17.5 HEMATOCRIT (BEAKER) (test ddus=986) 31.3 % 40.1-51.0 MEAN CORPUSCULAR VOLUME (BEAKER) (test ifvf=628) 100.3 fL 79.0-92.2 MEAN CORPUSCULAR HEMOGLOBIN (BEAKER) (test 32.7 pg 25.7-32.2 ppgh=963) MEAN CORPUSCULAR HEMOGLOBIN CONC (BEAKER) (test 32.6 GM/DL 32.3-36.5 lnij=727) RED CELL DISTRIBUTION WIDTH (BEAKER) (test 12.6 % 11.6-14.4 ocrq=236) PLATELET COUNT (BEAKER) (test mthk=954) 107 K/CU MM 150-450 MEAN PLATELET VOLUME (BEAKER) (test xakc=038) 10.6 fL 9.4-12.4 NUCLEATED RED BLOOD CELLS (BEAKER) (test 0 /100 WBC 0-0 ldvf=555) [id number] 00:40:00 Test Item Value Reference Range Comments POTASSIUM (BEAKER) (test qvzi=093) 3.5 meq/L 3.5-5.1 Every 8 hours PRN for Creatinine greater than or equal to 2 mg/dL.POCT-GLUCOSE [id number] 20:50:00 Test Item Value Reference Range Comments POC-GLUCOSE METER (BEAKER) 171 mg/dL 70-110 TESTED AT [facility] [address] [facility] (test nnji=0409) [facility] [address] [id number] 18:19:00 Test Item Value Reference Range Comments POTASSIUM (BEAKER) (test ezdm=218) 3.7 meq/L 3.5-5.1 Check Serum Magnesium level 2 hours after IV magnesium replacement.Check Serum Phosphorus level 4 hours after IV phosphorus replacement or 8 hours after PO replacement completed.8 hours after PO replacement [id number] 18:19:00 Test Item Value Reference Range Comments MAGNESIUM (BEAKER) (test kzmv=404) 2.1 mg/dL 1.6-2.6 Check Serum Magnesium level 2 hours after IV magnesium replacement.Check Serum Phosphorus level 4 hours after IV phosphorus replacement or 8 hours after PO replacement completed.8 hours after PO replacement [id number] 18:19:00 Test Item Value Reference Range Comments PHOSPHORUS (BEAKER) (test onzk=484) 1.7 mg/dL 2.3-4.7 Check Serum Magnesium level 2 hours after IV magnesium replacement.Check Serum Phosphorus level 4 hours after IV phosphorus replacement or 8 hours after PO replacement completed.8 hours after PO replacement completedCALCIUM, [id number] 18:03:00 Test Item Value Reference Range Comments CALCIUM IONIZED (BEAKER) (test wigl=216) 1.13 mmol/L 1.12-1.27 PH, BLOOD (BEAKER) (test wucp=5129) 7.51 Check serum Ionized Calcium level after 4 hours after IV Calcium replacement.POCT-GLUCOSE [id number] 17:17:00 Test Item Value Reference Range Comments POC-GLUCOSE METER (BEAKER) 195 mg/dL 70-110 TESTED AT [facility] [address] [facility] (test wksj=5013) [facility] [address] POCT-GLUCOSE [id number] 12:17:00 Test Item Value Reference Range Comments POC-GLUCOSE METER (BEAKER) 231 mg/dL 70-110 TESTED AT [place] [id number] [facility] (test ujtc=3549) [facility] [address] RAD, CHEST, 1 VIEW, NON [id number] 09:19:00Reason for exam:-> hypoxiaShould this be performed at the bedside?->YesFINAL REPORT HISTORY : hypoxia. Comparison: 07/07/2018 Comment: Single portable view of the chest was obtained. The cardiac silhouette size is enlarged. There are findings of mild pulmonary venous congestion. Interstitial prominence may represent interstitial edema. The patient is status post sternotomy. There is widening of the mediastinum. There is some left basilar consolidation. Stable right sided internal jugular venous catheter is in place. No definite pneumothorax or pleural effusion is seen. There is a tortuous/ectatic thoracic aorta. Signed: Abiola Strauss MDReport Verified Date/Time: 07/08/2018 09:19:57 Reading Location: [address] Transitional Reading Room [id number] 08:56:00 Test Item Value Reference Range Comments PHOSPHORUS (BEAKER) (test ubwc=782) 1.7 mg/dL 2.3-4.7 [id number] 08:56:00 Test Item Value Reference Range Comments MAGNESIUM (BEAKER) (test hxut=226) 2.1 mg/dL 1.6-2.6 BASIC METABOLIC [id number] 08:56:00 Test Item Value Reference Range Comments SODIUM (BEAKER) (test 141 meq/L 136-145 qwbn=794) POTASSIUM (BEAKER) (test 4.0 meq/L 3.5-5.1 qdjn=516) CHLORIDE (BEAKER) (test 109 meq/L 98-107 laqq=434) CO2 (BEAKER) (test 24 meq/L 22-29 kdgx=335) BLOOD UREA NITROGEN 13 mg/dL 7-21 (BEAKER) (test zaxl=038) CREATININE (BEAKER) (test 0.87 mg/dL 0.57-1.25 eokp=303) GLUCOSE RANDOM (BEAKER) 153 mg/dL 70-105 (test kvzx=390) CALCIUM (BEAKER) (test 9.1 mg/dL 8.4-10.2 mckn=680) EGFR (BEAKER) (test 92 mL/min/1.73 sq m ESTIMATED GFR IS NOT nrqa=8980) ACCURATE CREATININE CLEARANCE IN PREDICTING GLOMERULAR FILTRATION RATE. ESTIMATED GFR IS NOT APPLICABLE FOR DIALYSIS PATIENTS. BLOOD GAS, [id number] 08:49:00 Test Item Value Reference Range Comments PH ARTERIAL (BEAKER) (test yycq=671) 7.48 7.35-7.45 PCO2 ARTERIAL (BEAKER) (test dzuv=044) 40 mmHg 35-45 PO2 ARTERIAL (BEAKER) (test zrqx=844) 92 mmHg 80-90 O2 SATURATION ARTERIAL (BEAKER) (test csxo=818) 97.5 % 96.0-97.0 HCO3 ARTERIAL (BEAKER) (test bfjv=271) 29 mmol/L 21-29 BASE EXCESS ARTERIAL (BEAKER) (test wglt=091) 4.8 mmol/L -2.0-3.0 PATIENT TEMPERATURE (BEAKER) (test jqpw=4232) 37.0 C FIO2 (BEAKER) (test tsyw=2002) 60.0 % CBC W/PLT COUNT & AUTO [id number] 06:39:00 Test Item Value Reference Range Comments WHITE BLOOD CELL COUNT (BEAKER) (test zcdc=060) 8.3 K/ L 3.5-10.5 RED BLOOD CELL COUNT (BEAKER) (test qiua=000) 3.15 M/ L 4.63-6.08 HEMOGLOBIN (BEAKER) (test zryi=230) 10.4 GM/DL 13.7-17.5 HEMATOCRIT (BEAKER) (test hggg=046) 31.8 % 40.1-51.0 MEAN CORPUSCULAR VOLUME (BEAKER) (test hson=435) 101.0 fL 79.0-92.2 MEAN CORPUSCULAR HEMOGLOBIN (BEAKER) (test 33.0 pg 25.7-32.2 ansj=477) MEAN CORPUSCULAR HEMOGLOBIN CONC (BEAKER) (test 32.7 GM/DL 32.3-36.5 ikvl=707) RED CELL DISTRIBUTION WIDTH (BEAKER) (test 12.8 % 11.6-14.4 sepd=749) PLATELET COUNT (BEAKER) (test hqdl=882) 94 K/CU MM 150-450 MEAN PLATELET VOLUME (BEAKER) (test wzuh=614) 10.7 fL 9.4-12.4 NUCLEATED RED BLOOD CELLS (BEAKER) (test 0 /100 WBC 0-0 yprj=395) NEUTROPHILS RELATIVE PERCENT (BEAKER) (test 68 % bpbt=501) LYMPHOCYTES RELATIVE PERCENT (BEAKER) (test 15 % gyef=278) MONOCYTES RELATIVE PERCENT (BEAKER) (test 16 % gxky=791) EOSINOPHILS RELATIVE PERCENT (BEAKER) (test 1 % meao=319) BASOPHILS RELATIVE PERCENT (BEAKER) (test 0 % yjyx=154) NEUTROPHILS ABSOLUTE COUNT (BEAKER) (test 5.62 K/ L 1.78-5.38 olfk=881) LYMPHOCYTES ABSOLUTE COUNT (BEAKER) (test 1.26 K/ L 1.32-3.57 emwa=597) MONOCYTES ABSOLUTE COUNT (BEAKER) (test lxaq=185) 1.31 K/ L 0.30-0.82 EOSINOPHILS ABSOLUTE COUNT (BEAKER) (test 0.04 K/ L 0.04-0.54 dxth=215) BASOPHILS ABSOLUTE COUNT (BEAKER) (test eecq=118) 0.02 K/ L 0.01-0.08 IMMATURE GRANULOCYTES-RELATIVE PERCENT (BEAKER) 1 % 0-1 (test sprf=9876) POCT-GLUCOSE [id number] 05:59:00 Test Item Value Reference Range Comments POC-GLUCOSE METER (BEAKER) 175 mg/dL 70-110 TESTED AT [address] (test uesy=0290) [facility] [address] BLOOD GAS, [id number] 21:35:00 Test Item Value Reference Range Comments PH ARTERIAL (BEAKER) (test mmpg=543) 7.43 7.35-7.45 PCO2 ARTERIAL (BEAKER) (test topx=708) 40 mmHg 35-45 PO2 ARTERIAL (BEAKER) (test qmsm=143) 80 mmHg 80-90 O2 SATURATION ARTERIAL (BEAKER) (test kghe=594) 96.1 % 96.0-97.0 HCO3 ARTERIAL (BEAKER) (test jvnt=713) 26 mmol/L 21-29 BASE EXCESS ARTERIAL (BEAKER) (test kzdx=674) 1.7 mmol/L -2.0-3.0 PATIENT TEMPERATURE (BEAKER) (test uevv=9242) 36.9 C FIO2 (BEAKER) (test nios=6638) 60.0 % POCT-GLUCOSE [id number] 21:31:00 Test Item Value Reference Range Comments POC-GLUCOSE METER (BEAKER) 194 mg/dL 70-110 TESTED AT [address] (test zxcg=6895) [facility] [address] OXYGEN SATURATION, [id number] 19:33:00 Test Item Value Reference Range Comments O2 SATURATION (MEASURED) (BEAKER) (test zkch=9753) 68.6 % For occult hypoperfusionLACTIC ACID, VENOUS, WHOLE [id number] 16:49:00 Test Item Value Reference Range Comments LACTATE BLOOD VENOUS (2) (BEAKER) (test 1.0 mmol/L 0.5-2.2 nlob=3902) BLOOD GAS, [id number] 16:43:00 Test Item Value Reference Range Comments PH VENOUS (BEAKER) (test niwc=787) 7.39 7.32-7.42 PCO2 VENOUS (BEAKER) (test tbgi=593) 44 mmHg 41-51 PO2 VENOUS (BEAKER) (test wfmo=827) 29 mmHg 25-40 O2 SATURATION VENOUS (BEAKER) (test efoc=845) 59.6 % 40.0-70.0 HCO3 VENOUS (BEAKER) (test dvhw=251) 26 mmol/L 21-29 BASE EXCESS VENOUS (BEAKER) (test fqqd=482) 0.6 mmol/L -2.0-3.0 PATIENT TEMPERATURE (BEAKER) (test vwgw=7838) 35.3 C FIO2 (BEAKER) (test ktod=4053) 60.0 % CBC W/PLT COUNT & AUTO [id number] 16:37:00 Test Item Value Reference Range Comments WHITE BLOOD CELL COUNT (BEAKER) (test qrjw=945) 13.4 K/ L 3.5-10.5 RED BLOOD CELL COUNT (BEAKER) (test fizz=836) 3.36 M/ L 4.63-6.08 HEMOGLOBIN (BEAKER) (test lqlh=352) 11.0 GM/DL 13.7-17.5 HEMATOCRIT (BEAKER) (test kdca=596) 34.1 % 40.1-51.0 MEAN CORPUSCULAR VOLUME (BEAKER) (test royu=995) 101.5 fL 79.0-92.2 MEAN CORPUSCULAR HEMOGLOBIN (BEAKER) (test 32.7 pg 25.7-32.2 fiox=065) MEAN CORPUSCULAR HEMOGLOBIN CONC (BEAKER) (test 32.3 GM/DL 32.3-36.5 gyfh=439) RED CELL DISTRIBUTION WIDTH (BEAKER) (test 12.7 % 11.6-14.4 pgfi=503) PLATELET COUNT (BEAKER) (test ihoh=529) 132 K/CU MM 150-450 MEAN PLATELET VOLUME (BEAKER) (test spih=377) 10.6 fL 9.4-12.4 NUCLEATED RED BLOOD CELLS (BEAKER) (test 0 /100 WBC 0-0 pvom=251) (CELLAVISION MANUAL DIFF)2018-07-07 16:37:00 Test Item Value Reference Range Comments NEUTROPHILS - REL (CELLAVISION)(BEAKER) (test 80 % iyns=7726) LYMPHOCYTES - REL (CELLAVISION)(BEAKER) (test 9 % dnte=9192) MONOCYTES - REL (CELLAVISION)(BEAKER) (test 8 % fdsu=6733) BANDS - REL (CELLAVISION)(BEAKER) (test 3 % 0-10 zbzy=4250) NEUTROPHILS - ABS (CELLAVISION)(BEAKER) (test 10.72 K/ul 1.78-5.38 qdkn=0316) LYMPHOCYTES - ABS (CELLAVISION)(BEAKER) (test 1.21 K/ul 1.32-3.57 nyte=6877) MONOCYTES - ABS (CELLAVISION)(BEAKER) (test 1.07 K/uL 0.30-0.82 onht=8910) BANDS - ABS (CELLAVISION)(BEAKER) (test 0.40 K/uL 0.00-0.80 birt=8660) TOTAL COUNTED (BEAKER) (test tfkm=2068) 100 RBC MORPHOLOGY (BEAKER) (test tsoy=862) Normal WBC MORPHOLOGY (BEAKER) (test kxjo=141) Normal PLT MORPHOLOGY (BEAKER) (test vuxe=788) Normal ARTIFACT (CELLAVISION)(BEAKER) (test ukcu=5558) Present PLATELET CONCENTRATION (CELLAVISION)(BEAKER) Decreased (test sfjc=0582) Received comment: User comments: Slide comments:POCT-GLUCOSE [id number] 16: 30:00 Test Item Value Reference Range Comments POC-GLUCOSE METER (BEAKER) 239 mg/dL 70-110 TESTED AT [facility] [address] [facility] (test ocan=6584) [facility] [address] BLOOD GAS, [id number] 13:33:00 Test Item Value Reference Range Comments PH ARTERIAL (BEAKER) (test gclc=546) 7.38 7.35-7.45 PCO2 ARTERIAL (BEAKER) (test ssqr=480) 43 mmHg 35-45 PO2 ARTERIAL (BEAKER) (test jybs=688) 74 mmHg 80-90 O2 SATURATION ARTERIAL (BEAKER) (test cylf=090) 94.6 % 96.0-97.0 HCO3 ARTERIAL (BEAKER) (test nyag=532) 25 mmol/L 21-29 BASE EXCESS ARTERIAL (BEAKER) (test zghq=054) -0.2 mmol/L -2.0-3.0 PATIENT TEMPERATURE (BEAKER) (test pofe=4416) 37.0 C FIO2 (BEAKER) (test woew=6232) 32.0 % [id number] 13:09:00 Test Item Value Reference Range Comments MAGNESIUM (BEAKER) (test 2.2 mg/dL 1.6-2.6 Specimen slightly hemolyzed nmap=156) BASIC METABOLIC [id number] 13:09:00 Test Item Value Reference Range Comments SODIUM (BEAKER) (test 141 meq/L 136-145 oejp=722) POTASSIUM (BEAKER) (test 4.4 meq/L 3.5-5.1 Specimen slightly pusl=403) hemolyzed CHLORIDE (BEAKER) (test 110 meq/L 98-107 slca=711) CO2 (BEAKER) (test 25 meq/L 22-29 mmal=387) BLOOD UREA NITROGEN 19 mg/dL 7-21 (BEAKER) (test pgqi=495) CREATININE (BEAKER) (test 1.11 mg/dL 0.57-1.25 Specimen slightly qzhr=839) hemolyzed GLUCOSE RANDOM (BEAKER) 204 mg/dL 70-105 (test yppv=933) CALCIUM (BEAKER) (test 8.6 mg/dL 8.4-10.2 grpx=517) EGFR (BEAKER) (test 69 mL/min/1.73 sq m ESTIMATED GFR IS NOT nyxy=2396) ACCURATE CREATININE CLEARANCE IN PREDICTING GLOMERULAR FILTRATION RATE. ESTIMATED GFR IS NOT APPLICABLE FOR DIALYSIS PATIENTS. CALCIUM, [id number] 12:44:00 Test Item Value Reference Range Comments CALCIUM IONIZED (BEAKER) (test tmhr=443) 1.14 mmol/L 1.12-1.27 PH, BLOOD (BEAKER) (test vbzn=6855) 7.34 [id number] 11:12:00 Test Item Value Reference Range Comments MAGNESIUM (BEAKER) (test pfin=951) 2.1 mg/dL 1.6-2.6 Check Serum Magnesium level 2 hours after IV magnesium replacement.GLUCOSE-STAT [id number] 11:00:00 Test Item Value Reference Range Comments GLUCOSE RANDOM (BEAKER) (test rywm=350) 194 mg/dL 70-110 HGB/HCT (H&H) - STAT [id number] 11:00:00 Test Item Value Reference Range Comments HEMOGLOBIN (BEAKER) (test pwjw=842) 12.5 g/dL 13.0-16.8 HEMATOCRIT (BEAKER) (test qzko=019) 37.0 % 40.0-50.0 SODIUM NA-STAT [id number] 10:58:00 Test Item Value Reference Range Comments SODIUM (BEAKER) (test lfuv=274) 138 meq/L 135-148 POTASSIUM-STAT [id number] 10:58:00 Test Item Value Reference Range Comments POTASSIUM (BEAKER) (test sxyi=958) 4.2 meq/L 3.6-5.5 CBC W/PLT COUNT & AUTO [id number] 09:53:00 Test Item Value Reference Range Comments WHITE BLOOD CELL COUNT (BEAKER) (test ktvt=310) 14.0 K/ L 3.5-10.5 RED BLOOD CELL COUNT (BEAKER) (test dzna=971) 4.02 M/ L 4.63-6.08 HEMOGLOBIN (BEAKER) (test vafv=820) 12.9 GM/DL 13.7-17.5 HEMATOCRIT (BEAKER) (test nroh=330) 39.7 % 40.1-51.0 MEAN CORPUSCULAR VOLUME (BEAKER) (test onzt=459) 98.8 fL 79.0-92.2 MEAN CORPUSCULAR HEMOGLOBIN (BEAKER) (test 32.1 pg 25.7-32.2 ovel=408) MEAN CORPUSCULAR HEMOGLOBIN CONC (BEAKER) (test 32.5 GM/DL 32.3-36.5 scjo=514) RED CELL DISTRIBUTION WIDTH (BEAKER) (test 12.6 % 11.6-14.4 vzcw=430) PLATELET COUNT (BEAKER) (test jizk=266) 170 K/CU MM 150-450 MEAN PLATELET VOLUME (BEAKER) (test vlaf=135) 10.6 fL 9.4-12.4 NUCLEATED RED BLOOD CELLS (BEAKER) (test 0 /100 WBC 0-0 siyi=657) NEUTROPHILS RELATIVE PERCENT (BEAKER) (test 69 % nsmi=586) LYMPHOCYTES RELATIVE PERCENT (BEAKER) (test 16 % aqci=026) MONOCYTES RELATIVE PERCENT (BEAKER) (test 14 % eiif=539) EOSINOPHILS RELATIVE PERCENT (BEAKER) (test 0 % tmse=020) BASOPHILS RELATIVE PERCENT (BEAKER) (test 0 % jqnc=504) NEUTROPHILS ABSOLUTE COUNT (BEAKER) (test 9.67 K/ L 1.78-5.38 vncg=879) LYMPHOCYTES ABSOLUTE COUNT (BEAKER) (test 2.23 K/ L 1.32-3.57 dzch=597) MONOCYTES ABSOLUTE COUNT (BEAKER) (test 1.94 K/ L 0.30-0.82 bwjo=662) EOSINOPHILS ABSOLUTE COUNT (BEAKER) (test 0.01 K/ L 0.04-0.54 hqgl=016) BASOPHILS ABSOLUTE COUNT (BEAKER) (test 0.05 K/ L 0.01-0.08 pdtu=505) IMMATURE GRANULOCYTES-RELATIVE PERCENT (BEAKER) 1 % 0-1 (test wlir=5665) [id number] 05:10:00 Test Item Value Reference Range Comments MAGNESIUM (BEAKER) (test 2.3 mg/dL 1.6-2.6 Specimen slightly hemolyzed tnao=708) [id number] 05:10:00 Test Item Value Reference Range Comments PHOSPHORUS (BEAKER) (test 3.9 mg/dL 2.3-4.7 Specimen slightly hemolyzed psoy=127) BASIC METABOLIC [id number] 05:10:00 Test Item Value Reference Range Comments SODIUM (BEAKER) (test 141 meq/L 136-145 drju=151) POTASSIUM (BEAKER) (test 4.6 meq/L 3.5-5.1 Specimen slightly uoef=105) hemolyzed CHLORIDE (BEAKER) (test 110 meq/L 98-107 nkvp=746) CO2 (BEAKER) (test 24 meq/L 22-29 knrp=847) BLOOD UREA NITROGEN 19 mg/dL 7-21 (BEAKER) (test qloj=014) CREATININE (BEAKER) (test 1.08 mg/dL 0.57-1.25 Specimen slightly gxot=604) hemolyzed GLUCOSE RANDOM (BEAKER) 184 mg/dL 70-105 (test xmgc=301) CALCIUM (BEAKER) (test 8.7 mg/dL 8.4-10.2 dgpo=394) EGFR (BEAKER) (test 72 mL/min/1.73 sq m ESTIMATED GFR IS NOT kjgz=4924) ACCURATE CREATININE CLEARANCE IN PREDICTING GLOMERULAR FILTRATION RATE. ESTIMATED GFR IS NOT APPLICABLE FOR DIALYSIS PATIENTS. RAD, CHEST, 1 VIEW, NON [id number] 04:15:00while patient is intubated or has chest tubes.Reason for exam:->s/p CABGShould this be performed at the bedside?->YesFINAL REPORT EXAMINATION: AP PORTABLE CHEST RADIOGRAPH CLINICAL INDICATION: Chest tubes IMPRESSION: Compared with 07/06/2018 The endotracheal and nasogastric tubes have been removed in the interval. The support tube and catheter positions are otherwise unchanged. The heart is enlarged as before. Mediastinal contours are grossly unchanged. Opacities are again noted in the perihilar regions along the heart borders. A component of atelectasis and/or scarring is favored. No definite evidence of new lung consolidation or significant pneumothorax. Signed: Floridalma Arechigaeport Verified Date/Time: 07/07/2018 04:15:31 Reading Location: [address] Reading Room POCT-GLUCOSE [id number] 22:22:00 Test Item Value Reference Range Comments POC-GLUCOSE METER (BEAKER) 208 mg/dL 70-110 TESTED AT [facility] [address] [facility] (test nwwv=6312) [facility] [address] BLOOD GAS, [id number] 20:12:00 Test Item Value Reference Range Comments PH ARTERIAL (BEAKER) (test mnvo=642) 7.40 7.35-7.45 PCO2 ARTERIAL (BEAKER) (test xoxk=988) 38 mmHg 35-45 PO2 ARTERIAL (BEAKER) (test qfdz=394) 88 mmHg 80-90 O2 SATURATION ARTERIAL (BEAKER) (test tait=297) 96.6 % 96.0-97.0 HCO3 ARTERIAL (BEAKER) (test szlz=934) 23 mmol/L 21-29 BASE EXCESS ARTERIAL (BEAKER) (test tldn=178) -1.4 mmol/L -2.0-3.0 PATIENT TEMPERATURE (BEAKER) (test hffl=7877) 37.4 C FIO2 (BEAKER) (test zydj=2254) 40.0 % CBC W/PLT COUNT & AUTO [id number] 19:32:00 Test Item Value Reference Range Comments WHITE BLOOD CELL COUNT (BEAKER) (test hoxm=857) 16.5 K/ L 3.5-10.5 RED BLOOD CELL COUNT (BEAKER) (test aexv=483) 4.34 M/ L 4.63-6.08 HEMOGLOBIN (BEAKER) (test wjpx=744) 14.4 GM/DL 13.7-17.5 HEMATOCRIT (BEAKER) (test ppyo=997) 42.5 % 40.1-51.0 MEAN CORPUSCULAR VOLUME (BEAKER) (test juiq=914) 97.9 fL 79.0-92.2 MEAN CORPUSCULAR HEMOGLOBIN (BEAKER) (test 33.2 pg 25.7-32.2 tufi=368) MEAN CORPUSCULAR HEMOGLOBIN CONC (BEAKER) (test 33.9 GM/DL 32.3-36.5 qrfc=216) RED CELL DISTRIBUTION WIDTH (BEAKER) (test 12.3 % 11.6-14.4 sxtf=458) PLATELET COUNT (BEAKER) (test hcza=158) 142 K/CU MM 150-450 MEAN PLATELET VOLUME (BEAKER) (test ifcs=874) 10.3 fL 9.4-12.4 NUCLEATED RED BLOOD CELLS (BEAKER) (test 0 /100 WBC 0-0 pdbm=075) (CELLAVISION MANUAL DIFF)2018-07-06 19:32:00 Test Item Value Reference Range Comments NEUTROPHILS - REL (CELLAVISION)(BEAKER) (test 74 % mlun=4754) LYMPHOCYTES - REL (CELLAVISION)(BEAKER) (test 11 % teys=7781) MONOCYTES - REL (CELLAVISION)(BEAKER) (test 9 % ogpt=6850) BANDS - REL (CELLAVISION)(BEAKER) (test 6 % 0-10 uhwr=9120) NEUTROPHILS - ABS (CELLAVISION)(BEAKER) (test 12.21 K/ul 1.78-5.38 nbef=2009) LYMPHOCYTES - ABS (CELLAVISION)(BEAKER) (test 1.82 K/ul 1.32-3.57 gcpd=0593) MONOCYTES - ABS (CELLAVISION)(BEAKER) (test 1.49 K/uL 0.30-0.82 idhm=3850) BANDS - ABS (CELLAVISION)(BEAKER) (test 0.99 K/uL 0.00-0.80 lrvo=6103) TOTAL COUNTED (BEAKER) (test mcte=0959) 100 RBC MORPHOLOGY (BEAKER) (test uccm=749) Normal WBC MORPHOLOGY (BEAKER) (test qpve=582) Normal PLT MORPHOLOGY (BEAKER) (test ydxa=668) Normal POCT-GLUCOSE [id number] 18:56:00 Test Item Value Reference Range Comments POC-GLUCOSE METER (BEAKER) 206 mg/dL 70-110 TESTED AT [facility] [address] [facility] (test dkut=9950) [facility] [address] BASIC METABOLIC [id number] 17:20:00 Test Item Value Reference Range Comments SODIUM (BEAKER) (test 139 meq/L 136-145 rort=095) POTASSIUM (BEAKER) (test 5.2 meq/L 3.5-5.1 Specimen slightly aper=063) hemolyzed CHLORIDE (BEAKER) (test 108 meq/L 98-107 zrwa=300) CO2 (BEAKER) (test 22 meq/L 22-29 wdex=855) BLOOD UREA NITROGEN 21 mg/dL 7-21 (BEAKER) (test rsfu=557) CREATININE (BEAKER) (test 1.08 mg/dL 0.57-1.25 Specimen slightly etoo=939) hemolyzed GLUCOSE RANDOM (BEAKER) 213 mg/dL 70-105 (test pwkm=891) CALCIUM (BEAKER) (test 9.1 mg/dL 8.4-10.2 rwvu=467) EGFR (BEAKER) (test 72 mL/min/1.73 sq m ESTIMATED GFR IS NOT xclz=0494) ACCURATE CREATININE CLEARANCE IN PREDICTING GLOMERULAR FILTRATION RATE. ESTIMATED GFR IS NOT APPLICABLE FOR DIALYSIS PATIENTS. LACTIC ACID, ARTERIAL, WHOLE [id number] 16:50:00 Test Item Value Reference Range Comments LACTATE BLOOD ARTERIAL (2) (BEAKER) (test 1.2 mmol/L 0.5-2.2 lfzs=1672) [id number] 16:45:00 Test Item Value Reference Range Comments MAGNESIUM (BEAKER) (test 2.7 mg/dL 1.6-2.6 Specimen slightly hemolyzed zquu=363) [id number] 16:45:00 Test Item Value Reference Range Comments PHOSPHORUS (BEAKER) (test 3.6 mg/dL 2.3-4.7 Specimen slightly hemolyzed stld=739) [id number] 16:45:00 Test Item Value Reference Range Comments POTASSIUM (BEAKER) (test 5.1 meq/L 3.5-5.1 Specimen slightly hemolyzed lnif=083) [id number] 16:45:00 Test Item Value Reference Range Comments SODIUM (BEAKER) (test rykc=557) 137 meq/L 136-145 [id number] 16:45:00 Test Item Value Reference Range Comments GLUCOSE RANDOM (BEAKER) (test oiqh=238) 193 mg/dL 70-105 [id number] 16:39:00 Test Item Value Reference Range Comments PROTIME (BEAKER) (test eyzr=985) 15.4 seconds 11.7-14.7 INR (BEAKER) (test xqjh=140) 1.2 <=5.9 PARTIAL THROMBOPLASTIN TIME (BEAKER) (test 28.7 seconds 22.5-36.0 foxy=307) RECOMMENDED COUMADIN/WARFARIN INR THERAPY RANGESSTANDARD DOSE: 2.0 - 3.0 Includes: PROPHYLAXIS forvenous thrombosis, systemic embolization; TREATMENT for venous thrombosis and/or pulmonary embolus.HIGH RISK: Target INR is 2.5-3.5 for patients with mechanical heart valves.[id number] 16:39:00 Test Item Value Reference Range Comments FIBRINOGEN LEVEL (BEAKER) (test rbri=825) 282 mg/dl 225-434 PROTHROMBIN [id number] 16:38:00 Test Item Value Reference Range Comments PROTIME (BEAKER) (test abwb=210) 15.4 seconds 11.7-14.7 INR (BEAKER) (test yjyh=319) 1.2 <=5.9 RECOMMENDED COUMADIN/WARFARIN INR THERAPY RANGESSTANDARD DOSE: 2.0 - 3.0 Includes: PROPHYLAXIS forvenous thrombosis, systemic embolization; TREATMENT for venous thrombosis and/or pulmonary embolus.HIGH RISK: Target INR is 2.5-3.5 for patients with mechanical heart valves.RAD, CHEST, 1 VIEW, NON [id number] 16:16:00Reason for exam:->s/p CABGShould this be performed at the bedside? ->YesFINAL REPORT TECHNIQUE: Frontal chest radiograph dated 07/06/2018. CLINICAL HISTORY: S/P CABG COMPARISON STUDY: Chest radiograph dated 07/05/2018 Impression:Endotracheal tube is 4cm above the annette. Right-sided internal jugular vascular line is seen with the tip projected over the superior vena cava/right atrial junction. Enteric tube is seen with the tip in the region of the gastric body. Left-sided chest tube and mediastinal drain are in place. There is left retrocardiac atelectasis. No pneumothorax. Cardiomediastinal silhouette is stable in size. No pulmonary edema. Sternotomy wires are intact and well aligned. Signed: Lindsay Schreibereport Verified Date/Time: 07/06/2018 16:16:23 Reading Location: [facility] Radiology Reading Room OXYGEN SATURATION, [id number] 16:00:00 Test Item Value Reference Range Comments O2 SATURATION (MEASURED) (BEAKER) (test hvvw=4078) 64.6 % BLOOD GAS, [id number] 15:59:00 Test Item Value Reference Range Comments PH ARTERIAL (BEAKER) (test pysf=406) 7.35 7.35-7.45 PCO2 ARTERIAL (BEAKER) (test zvfm=638) 45 mmHg 35-45 PO2 ARTERIAL (BEAKER) (test wils=910) 80 mmHg 80-90 O2 SATURATION ARTERIAL (BEAKER) (test oxou=571) 95.7 % 96.0-97.0 HCO3 ARTERIAL (BEAKER) (test owva=382) 24 mmol/L 21-29 BASE EXCESS ARTERIAL (BEAKER) (test akpg=282) -1.9 mmol/L -2.0-3.0 PATIENT TEMPERATURE (BEAKER) (test pirg=3024) 36.2 C FIO2 (BEAKER) (test xpvu=1249) 50.0 % [id number] 15:14:00 Test Item Value Reference Range Comments ACTIVATED CLOTTING TIME 103 sec TESTED AT [address] (BEAKER) (test cjxg=276) [place] [id number] 15:14:00 Test Item Value Reference Range Comments ACTIVATED CLOTTING TIME 423 sec TESTED AT [address] (BEAKER) (test nyha=613) [place] [address] [id number] 15:14:00 Test Item Value Reference Range Comments ACTIVATED CLOTTING TIME 384 sec TESTED AT [address] (BEAKER) (test krdi=460) [place] [id number] THROMBOELASTOGRAPH (TEG)2018-07-06 15:08:00 Test Item Value Reference Range Comments TEG ACTIVATED CLOTTING TIME (BEAKER) (test 3.8 minutes 4.0-7.0 olut=9257) TEG FIBRINOGEN ACTIVITY (BEAKER) (test 64.5 degrees 61.0-73.0 xdsm=1740) TEG PLT. AGGREGATION (BEAKER) (test jelz=2750) 57.2 MM 55.0-65.0 TEG FIBRINOLYSIS (BEAKER) (test xlms=1800) 16.0 % 0.0-5.0 TGH ACTIVATED CLOTTING TIME (BEAKER) (test 4.2 minutes 4.0-7.0 izyt=4494) TGH FIBRINOGEN ACTIVITY (BEAKER) (test 65.6 degrees 61.0-73.0 qkui=1259) TGH PLT. AGGREGATION (BEAKER) (test thdu=1058) 53.0 MM 55.0-65.0 TGH FIBRINOLYSIS (BEAKER) (test rkqe=6748) 0.0 % 0.0-5.0 PLATELET [id number] 14:31:00 Test Item Value Reference Range Comments PLATELET COUNT (BEAKER) (test focd=879) 125 K/CU MM 150-450 [id number] 14:18:00 Test Item Value Reference Range Comments FIBRINOGEN LEVEL (BEAKER) (test xqlc=581) 406 mg/dl 225-434 [id number] 14:18:00 Test Item Value Reference Range Comments PARTIAL THROMBOPLASTIN TIME (BEAKER) (test 24.4 seconds 22.5-36.0 vmxi=323) PROTHROMBIN [id number] 14:17:00 Test Item Value Reference Range Comments PROTIME (BEAKER) (test qkdj=366) 14.1 seconds 11.7-14.7 INR (BEAKER) (test maky=541) 1.1 <=5.9 RECOMMENDED COUMADIN/WARFARIN INR THERAPY RANGESSTANDARD DOSE: 2.0 - 3.0 Includes: PROPHYLAXIS forvenous thrombosis, systemic embolization; TREATMENT for venous thrombosis and/or pulmonary embolus.HIGH RISK: Target INR is 2.5-3.5 for patients with mechanical heart valves.GLUCOSE-STAT [id number] 14:03:00 Test Item Value Reference Range Comments GLUCOSE RANDOM (BEAKER) (test ggup=321) 165 mg/dL 70-110 SODIUM NA-STAT [id number] 14:03:00 Test Item Value Reference Range Comments SODIUM (BEAKER) (test yzzn=241) 133 meq/L 135-148 HGB/HCT (H&H) - STAT [id number] 14:03:00 Test Item Value Reference Range Comments HEMOGLOBIN (BEAKER) (test yupz=377) 12.5 g/dL 13.0-16.8 HEMATOCRIT (BEAKER) (test shsv=667) 37.0 % 40.0-50.0 POTASSIUM-STAT [id number] 14:02:00 Test Item Value Reference Range Comments POTASSIUM (BEAKER) (test ujww=371) 4.4 meq/L 3.6-5.5 BLOOD GAS, [id number] 14:02:00 Test Item Value Reference Range Comments PH ARTERIAL (BEAKER) (test ypig=633) 7.35 7.35-7.45 PCO2 ARTERIAL (BEAKER) (test pnbw=262) 47 mmHg 35-45 PO2 ARTERIAL (BEAKER) (test fvrf=631) 142 mmHg 80-90 O2 SATURATION ARTERIAL (BEAKER) (test bbqj=158) 98.8 % 96.0-97.0 HCO3 ARTERIAL (BEAKER) (test ryki=844) 26 mmol/L 21-29 BASE EXCESS ARTERIAL (BEAKER) (test tweq=661) -0.8 mmol/L -2.0-3.0 PATIENT TEMPERATURE (BEAKER) (test anuq=9622) 35.0 C FIO2 (BEAKER) (test yrjy=2379) 100.0 % BLOOD GAS, [id number] 13:22:00 Test Item Value Reference Range Comments PH VENOUS (BEAKER) (test 7.34 7.32-7.42 This is a corrected result. ifdo=270) Previous result was 7.36 on 07/06/2018 at 1313 GE[employer]NA[employer] PCO2 VENOUS (BEAKER) (test 46 mmHg 41-51 This is a corrected result. gotr=596) Previous result was 44 mmHg on 07/06/2018 at 1313 GEOPHYSICAL MANAGER PO2 VENOUS (BEAKER) (test 46 mmHg 25-40 This is a corrected result. gofq=151) Previous result was 282 mmHg on 07/06/2018 at 1313 GEOPHYSICAL MANAGER O2 SATURATION VENOUS (BEAKER) 93.4 % 40.0-70.0 This is a corrected result. (test nyrk=023) Previous result was 99.6 % on 07/06/2018 at 1313 GEOPHYSICAL MANAGER HCO3 VENOUS (BEAKER) (test 27 mmol/L 21-29 zmjx=162) BASE EXCESS VENOUS (BEAKER) -1.8 mmol/L -2.0-3.0 (test epwi=848) PATIENT TEMPERATURE (BEAKER) 28.2 C (test yhgr=2164) FIO2 (BEAKER) (test nlpe=3385) 65.0 % BLOOD GAS, [id number] 13:15:00 Test Item Value Reference Range Comments PH ARTERIAL (BEAKER) (test cimw=469) 7.36 7.35-7.45 PCO2 ARTERIAL (BEAKER) (test mpna=058) 44 mmHg 35-45 PO2 ARTERIAL (BEAKER) (test ytjp=441) 282 mmHg 80-90 O2 SATURATION ARTERIAL (BEAKER) (test cxjy=692) 99.6 % 96.0-97.0 HCO3 ARTERIAL (BEAKER) (test gahu=755) 27 mmol/L 21-29 BASE EXCESS ARTERIAL (BEAKER) (test tgou=733) -1.8 mmol/L -2.0-3.0 PATIENT TEMPERATURE (BEAKER) (test yqxn=2640) 28.2 C FIO2 (BEAKER) (test bjyg=1704) 65.0 % SODIUM NA-STAT [id number] 13:15:00 Test Item Value Reference Range Comments SODIUM (BEAKER) (test esze=452) 132 meq/L 135-148 GLUCOSE-STAT [id number] 13:15:00 Test Item Value Reference Range Comments GLUCOSE RANDOM (BEAKER) (test dmbx=582) 183 mg/dL 70-110 HGB/HCT (H&H) - STAT [id number] 13:15:00 Test Item Value Reference Range Comments HEMOGLOBIN (BEAKER) (test uoaz=696) 11.4 g/dL 13.0-16.8 HEMATOCRIT (BEAKER) (test hllh=396) 34.0 % 40.0-50.0 POTASSIUM-STAT [id number] 13:14:00 Test Item Value Reference Range Comments POTASSIUM (BEAKER) (test isoy=666) 3.9 meq/L 3.6-5.5 SODIUM NA-STAT [id number] 13:07:00 Test Item Value Reference Range Comments SODIUM (BEAKER) (test ryjd=419) 138 meq/L 135-148 POTASSIUM-STAT [id number] 13:07:00 Test Item Value Reference Range Comments POTASSIUM (BEAKER) (test gdsa=877) 4.1 meq/L 3.6-5.5 HGB/HCT (H&H) - STAT [id number] 13:07:00 Test Item Value Reference Range Comments HEMOGLOBIN (BEAKER) (test hfdt=337) 14.7 g/dL 13.0-16.8 HEMATOCRIT (BEAKER) (test soxd=801) 43.0 % 40.0-50.0 BLOOD GAS, [id number] 13:07:00 Test Item Value Reference Range Comments PH ARTERIAL (BEAKER) (test qkna=297) 7.24 7.35-7.45 PCO2 ARTERIAL (BEAKER) (test ommb=481) 66 mmHg 35-45 PO2 ARTERIAL (BEAKER) (test lzis=713) 217 mmHg 80-90 O2 SATURATION ARTERIAL (BEAKER) (test wdll=760) 99.3 % 96.0-97.0 HCO3 ARTERIAL (BEAKER) (test kele=500) 28 mmol/L 21-29 BASE EXCESS ARTERIAL (BEAKER) (test roie=936) -1.6 mmol/L -2.0-3.0 PATIENT TEMPERATURE (BEAKER) (test htei=3732) 36.4 C FIO2 (BEAKER) (test izyq=6265) 100.0 % GLUCOSE-STAT [id number] 13:07:00 Test Item Value Reference Range Comments GLUCOSE RANDOM (BEAKER) (test qvaj=727) 157 mg/dL 70-110 CALCIUM, [id number] 13:06:00 Test Item Value Reference Range Comments CALCIUM IONIZED (BEAKER) (test pykj=694) 1.13 mmol/L 1.12-1.27 PH, BLOOD (BEAKER) (test xbot=3175) 7.23 [id number] 12:49:00 Test Item Value Reference Range Comments ACTIVATED CLOTTING TIME 472 sec TESTED AT [facility] [address] [facility] ([place]) (test gerd=506) [facility] [address] POCT-GLUCOSE [id number] 08:01:00 Test Item Value Reference Range Comments POC-GLUCOSE METER ([place]) 201 mg/dL 70-110 TESTED AT [facility] [address] [facility] (test yibr=0742) [facility] [address] [id number] 06:43:00 Test Item Value Reference Range Comments PARTIAL THROMBOPLASTIN TIME (BEAKER) (test 109.3 seconds 22.5-36.0 fxlr=221) CBC W/PLT COUNT & AUTO [id number] 06:24:00 Test Item Value Reference Range Comments WHITE BLOOD CELL COUNT (BEAKER) (test ttls=934) 6.2 K/ L 3.5-10.5 RED BLOOD CELL COUNT (BEAKER) (test opue=845) 4.68 M/ L 4.63-6.08 HEMOGLOBIN (BEAKER) (test ylrc=587) 15.1 GM/DL 13.7-17.5 HEMATOCRIT (BEAKER) (test iqtl=846) 45.4 % 40.1-51.0 MEAN CORPUSCULAR VOLUME (BEAKER) (test moqv=399) 97.0 fL 79.0-92.2 MEAN CORPUSCULAR HEMOGLOBIN (BEAKER) (test 32.3 pg 25.7-32.2 txye=072) MEAN CORPUSCULAR HEMOGLOBIN CONC (BEAKER) (test 33.3 GM/DL 32.3-36.5 rvdt=952) RED CELL DISTRIBUTION WIDTH (BEAKER) (test 12.2 % 11.6-14.4 vdnw=828) PLATELET COUNT (BEAKER) (test kyux=781) 153 K/CU MM 150-450 MEAN PLATELET VOLUME (BEAKER) (test qskq=415) 10.5 fL 9.4-12.4 NUCLEATED RED BLOOD CELLS (BEAKER) (test 0 /100 WBC 0-0 pmnh=820) NEUTROPHILS RELATIVE PERCENT (BEAKER) (test 44 % idgj=412) LYMPHOCYTES RELATIVE PERCENT (BEAKER) (test 39 % febg=086) MONOCYTES RELATIVE PERCENT (BEAKER) (test 13 % yqca=150) EOSINOPHILS RELATIVE PERCENT (BEAKER) (test 4 % xzby=545) BASOPHILS RELATIVE PERCENT (BEAKER) (test 1 % muba=311) NEUTROPHILS ABSOLUTE COUNT (BEAKER) (test 2.71 K/ L 1.78-5.38 pcqx=793) LYMPHOCYTES ABSOLUTE COUNT (BEAKER) (test 2.38 K/ L 1.32-3.57 aeux=763) MONOCYTES ABSOLUTE COUNT (BEAKER) (test 0.81 K/ L 0.30-0.82 vfon=427) EOSINOPHILS ABSOLUTE COUNT (BEAKER) (test 0.23 K/ L 0.04-0.54 kxjw=505) BASOPHILS ABSOLUTE COUNT (BEAKER) (test 0.04 K/ L 0.01-0.08 ekuc=475) IMMATURE GRANULOCYTES-RELATIVE PERCENT (BEAKER) 0 % 0-1 (test jxsk=8972) [id number] 01:14:00 Test Item Value Reference Range Comments PARTIAL THROMBOPLASTIN TIME (BEAKER) (test 90.5 seconds 22.5-36.0 srsf=210) 6 hours after starting heparin infusion and as indicated per sliding scalePROTHROMBIN [id number] 01:12:00 Test Item Value Reference Range Comments PROTIME (BEAKER) (test kren=343) 14.2 seconds 11.7-14.7 INR (BEAKER) (test toqw=103) 1.1 <=5.9 RECOMMENDED COUMADIN/WARFARIN INR THERAPY RANGESSTANDARD DOSE: 2.0 - 3.0 Includes: PROPHYLAXIS forvenous thrombosis, systemic embolization; TREATMENT for venous thrombosis and/or pulmonary embolus.HIGH RISK: Target INR is 2.5-3.5 for patients with mechanical heart valves.6 hours after starting heparin infusion and as indicated per sliding [id number] 01:02:00 Test Item Value Reference Range Comments MAGNESIUM (BEAKER) (test 2.9 mg/dL 1.6-2.6 Specimen slightly hemolyzed lxco=975) COMPREHENSIVE METABOLIC [id number] 01:02:00 Test Item Value Reference Range Comments TOTAL PROTEIN (BEAKER) 8.0 gm/dL 6.0-8.3 Specimen slightly (test itbm=203) hemolyzed ALBUMIN (BEAKER) (test 4.1 g/dL 3.5-5.0 Specimen slightly ivko=0380) hemolyzed ALKALINE PHOSPHATASE 92 U/L 40-150 (BEAKER) (test pkxi=078) BILIRUBIN TOTAL (BEAKER) 0.5 mg/dL 0.2-1.2 Specimen slightly (test zbph=539) hemolyzed SODIUM (BEAKER) (test 137 meq/L 136-145 lwsr=123) POTASSIUM (BEAKER) (test 3.9 meq/L 3.5-5.1 Specimen slightly cdbk=039) hemolyzed CHLORIDE (BEAKER) (test 101 meq/L 98-107 bgno=837) CO2 (BEAKER) (test 19 meq/L 22-29 anuz=993) BLOOD UREA NITROGEN 25 mg/dL 7-21 (BEAKER) (test yhml=357) CREATININE (BEAKER) (test 1.44 mg/dL 0.57-1.25 Specimen slightly cskz=936) hemolyzed GLUCOSE RANDOM (BEAKER) 193 mg/dL 70-105 (test wiot=523) CALCIUM (BEAKER) (test 9.4 mg/dL 8.4-10.2 aznn=302) AST (SGOT) (BEAKER) (test 58 U/L 5-34 Specimen slightly sxzk=469) hemolyzed ALT (SGPT) (BEAKER) (test 63 U/L 6-55 Specimen slightly nafw=271) hemolyzed EGFR (BEAKER) (test 51 mL/min/1.73 sq m ESTIMATED GFR IS NOT gvtc=2476) ACCURATE CREATININE CLEARANCE IN PREDICTING GLOMERULAR FILTRATION RATE. ESTIMATED GFR IS NOT APPLICABLE FOR DIALYSIS PATIENTS. Specimen markedly lipemicCBC W/PLT COUNT & AUTO [id number] 00:44 :00 Test Item Value Reference Range Comments WHITE BLOOD CELL COUNT (BEAKER) (test opvi=586) 7.3 K/ L 3.5-10.5 RED BLOOD CELL COUNT (BEAKER) (test psll=761) 4.63 M/ L 4.63-6.08 HEMOGLOBIN (BEAKER) (test aaag=966) 15.5 GM/DL 13.7-17.5 HEMATOCRIT (BEAKER) (test deia=594) 44.7 % 40.1-51.0 MEAN CORPUSCULAR VOLUME (BEAKER) (test rvom=804) 96.5 fL 79.0-92.2 MEAN CORPUSCULAR HEMOGLOBIN (BEAKER) (test 33.5 pg 25.7-32.2 ntvd=724) MEAN CORPUSCULAR HEMOGLOBIN CONC (BEAKER) (test 34.7 GM/DL 32.3-36.5 oggw=146) RED CELL DISTRIBUTION WIDTH (BEAKER) (test 12.2 % 11.6-14.4 clot=333) PLATELET COUNT (BEAKER) (test wbuv=557) 192 K/CU MM 150-450 MEAN PLATELET VOLUME (BEAKER) (test jrdt=609) 10.6 fL 9.4-12.4 NUCLEATED RED BLOOD CELLS (BEAKER) (test 0 /100 WBC 0-0 mgul=698) NEUTROPHILS RELATIVE PERCENT (BEAKER) (test 48 % syrt=699) LYMPHOCYTES RELATIVE PERCENT (BEAKER) (test 36 % tjjw=267) MONOCYTES RELATIVE PERCENT (BEAKER) (test 12 % ukdr=806) EOSINOPHILS RELATIVE PERCENT (BEAKER) (test 3 % xsxu=324) BASOPHILS RELATIVE PERCENT (BEAKER) (test 1 % ltbb=605) NEUTROPHILS ABSOLUTE COUNT (BEAKER) (test 3.46 K/ L 1.78-5.38 luux=059) LYMPHOCYTES ABSOLUTE COUNT (BEAKER) (test 2.65 K/ L 1.32-3.57 tscg=374) MONOCYTES ABSOLUTE COUNT (BEAKER) (test 0.84 K/ L 0.30-0.82 fbzi=722) EOSINOPHILS ABSOLUTE COUNT (BEAKER) (test 0.23 K/ L 0.04-0.54 rtps=717) BASOPHILS ABSOLUTE COUNT (BEAKER) (test 0.06 K/ L 0.01-0.08 fjja=292) IMMATURE GRANULOCYTES-RELATIVE PERCENT (BEAKER) 1 % 0-1 (test dnue=3627) POCT-GLUCOSE [id number] 21:33:00 Test Item Value Reference Range Comments POC-GLUCOSE METER (BEAKER) 286 mg/dL 70-110 TESTED AT [address] (test bsjd=6276) [place] [address] [id number] 19:12:00 Test Item Value Reference Range Comments PARTIAL THROMBOPLASTIN TIME (BEAKER) (test 64.6 seconds 22.5-36.0 eefe=221) POCT-GLUCOSE [id number] 18:10:00 Test Item Value Reference Range Comments POC-GLUCOSE METER (BEAKER) 165 mg/dL 70-110 TESTED AT [address] (test ntdz=0756) [place] [address] POCT-GLUCOSE [id number] 12:50:00 Test Item Value Reference Range Comments POC-GLUCOSE METER (BEAKER) 152 mg/dL 70-110 TESTED AT [address] (test hicm=1520) [place] [address] HEMOGLOBIN [id number] 10:06:00 Test Item Value Reference Range Comments HEMOGLOBIN A1C (BEAKER) (test rbli=221) 7.0 % 4.3-6.1 [id number] 09:01:00 Test Item Value Reference Range Comments PARTIAL THROMBOPLASTIN TIME (BEAKER) (test 68.3 seconds 22.5-36.0 dkal=738) PLATELET AGGREGATION: FUNCTION [id number] 08:44:00 Test Item Value Reference Range Comments WEAK ADP RESULT(BEAKER) (test 84 % 60-91 qesi=1879) PLATELET FUNCTION SCREEN 60-100% indicates normal INTERP (BEAKER) (test platelet function oqli=8006) [id number] (BEAKER) Cindy Velasquez MD (test bnvb=1209) (electronic signature) PLATELET COUNT AGG (BEAKER) 175 K/CU MM 150-450 (test zigu=9538) Platelet Function Screen results may be falsely low with platelet counts<100, 000/cu mm.POCT-GLUCOSE [id number] 08:23:00 Test Item Value Reference Range Comments POC-GLUCOSE METER (BEAKER) 185 mg/dL 70-110 TESTED AT [address] (test ouen=6915) [place] [address] RAD, CHEST, 1 VIEW, NON [id number] 04:51:00Reason for exam:-> dyspneaShould this be performed at the bedside?->YesFINAL REPORT History: Dyspnea. Comparison: None. Findings: A single view of the chest is submitted. Cardiac silhouette is at the upper limits of normal for size but magnified byportable technique. There is central pulmonary vascular prominence and cephalization of the pulmonary vasculature, along with diffuse interstitial prominence, suggestive of pulmonary interstitial edema. There is no focal consolidation, pneumothorax, large pleural effusion or acute bony abnormality.Signed: Leo Piedra MDReport Verified Date/Time: 07/05/2018 04:51 :23 Reading Location: [address] Reading Room B-TYPE NATRIURETIC FACTOR (BNP)2018-07-05 02:51:00 Test Item Value Reference Range Comments B-TYPE NATRIURETIC PEPTIDE (BEAKER) (test ecca=133) 44 pg/mL 0-100 [id number] 02:44:00 Test Item Value Reference Range Comments MAGNESIUM (BEAKER) (test ynip=460) 2.3 mg/dL 1.6-2.6 BASIC METABOLIC [id number] 02:44:00 Test Item Value Reference Range Comments SODIUM (BEAKER) (test 139 meq/L 136-145 odcf=301) POTASSIUM (BEAKER) (test 3.7 meq/L 3.5-5.1 zamd=693) CHLORIDE (BEAKER) (test 103 meq/L 98-107 iqdu=106) CO2 (BEAKER) (test 26 meq/L 22-29 kihm=211) BLOOD UREA NITROGEN 21 mg/dL 7-21 (BEAKER) (test mgvs=541) CREATININE (BEAKER) (test 1.24 mg/dL 0.57-1.25 pouw=978) GLUCOSE RANDOM (BEAKER) 171 mg/dL 70-105 (test xivi=143) CALCIUM (BEAKER) (test 9.8 mg/dL 8.4-10.2 lyjj=343) EGFR (BEAKER) (test 61 mL/min/1.73 sq m ESTIMATED GFR IS NOT ahhj=0537) ACCURATE CREATININE CLEARANCE IN PREDICTING GLOMERULAR FILTRATION RATE. ESTIMATED GFR IS NOT APPLICABLE FOR DIALYSIS PATIENTS. [id number] 02:42:00 Test Item Value Reference Range Comments PARTIAL THROMBOPLASTIN TIME (BEAKER) (test 63.2 seconds 22.5-36.0 iusg=868) CBC W/PLT COUNT & AUTO [id number] 02:26:00 Test Item Value Reference Range Comments WHITE BLOOD CELL COUNT (BEAKER) (test symw=710) 6.9 K/ L 3.5-10.5 RED BLOOD CELL COUNT (BEAKER) (test gjbb=347) 4.85 M/ L 4.63-6.08 HEMOGLOBIN (BEAKER) (test pyju=209) 15.6 GM/DL 13.7-17.5 HEMATOCRIT (BEAKER) (test stmd=861) 47.6 % 40.1-51.0 MEAN CORPUSCULAR VOLUME (BEAKER) (test qlei=521) 98.1 fL 79.0-92.2 MEAN CORPUSCULAR HEMOGLOBIN (BEAKER) (test 32.2 pg 25.7-32.2 ubjs=863) MEAN CORPUSCULAR HEMOGLOBIN CONC (BEAKER) (test 32.8 GM/DL 32.3-36.5 plbt=757) RED CELL DISTRIBUTION WIDTH (BEAKER) (test 12.4 % 11.6-14.4 vdlw=790) PLATELET COUNT (BEAKER) (test dzaf=124) 175 K/CU MM 150-450 MEAN PLATELET VOLUME (BEAKER) (test lwbf=599) 10.1 fL 9.4-12.4 NUCLEATED RED BLOOD CELLS (BEAKER) (test 0 /100 WBC 0-0 hnsb=602) NEUTROPHILS RELATIVE PERCENT (BEAKER) (test 50 % fqor=105) LYMPHOCYTES RELATIVE PERCENT (BEAKER) (test 35 % gbja=962) MONOCYTES RELATIVE PERCENT (BEAKER) (test 12 % ignz=615) EOSINOPHILS RELATIVE PERCENT (BEAKER) (test 3 % ulvh=182) BASOPHILS RELATIVE PERCENT (BEAKER) (test 1 % liuz=727) NEUTROPHILS ABSOLUTE COUNT (BEAKER) (test 3.44 K/ L 1.78-5.38 musx=124) LYMPHOCYTES ABSOLUTE COUNT (BEAKER) (test 2.38 K/ L 1.32-3.57 wczt=219) MONOCYTES ABSOLUTE COUNT (BEAKER) (test 0.81 K/ L 0.30-0.82 ywsg=912) EOSINOPHILS ABSOLUTE COUNT (BEAKER) (test 0.19 K/ L 0.04-0.54 xcuy=819) BASOPHILS ABSOLUTE COUNT (BEAKER) (test 0.06 K/ L 0.01-0.08 bgsc=880) IMMATURE GRANULOCYTES-RELATIVE PERCENT (BEAKER) 0 % 0-1 (test rdsh=2029) POCT-GLUCOSE [id number] 21:12:00 Test Item Value Reference Range Comments POC-GLUCOSE METER (BEAKER) 204 mg/dL 70-110 TESTED AT [facility] [address] [facility] (test xytt=9706) [facility] [address] TSH/FREE T4 IF [id number] 19:43:00 Test Item Value Reference Range Comments THYROID STIMULATING HORMONE (BEAKER) (test 4.44 uIU/mL 0.35-4.94 grah=516) LIPID [id number] 19:23:00 Test Item Value Reference Range Comments TRIGLYCERIDES (BEAKER) (test clrd=169) 458 mg/dL CHOLESTEROL (BEAKER) (test xwfg=514) 285 mg/dL HDL CHOLESTEROL (BEAKER) (test ilfm=374) 42 mg/dL Calculated LDL not valid if triglyceride >400 mg/dLTriglyceride Reference Range: Low Risk <150 Borderline 150-199 High Risk 200-499 Very High Risk >=500Cholesterol Reference Range: Low Risk <200 Borderline 200-239 High Risk >240HDL Cholesterol Reference Range: Low Risk >=60 High Risk <40LDL Cholesterol ReferenceRange: Optimal <100 Near Optimal 100-129 Borderline 130-159 High 160-189 Very High >=190HEPATIC FUNCTION [id number] 19:23:00 Test Item Value Reference Range Comments TOTAL PROTEIN (BEAKER) (test soha=047) 7.5 gm/dL 6.0-8.3 ALBUMIN (BEAKER) (test rqnd=8927) 4.3 g/dL 3.5-5.0 BILIRUBIN TOTAL (BEAKER) (test xbia=047) 0.9 mg/dL 0.2-1.2 BILIRUBIN DIRECT (BEAKER) (test iber=334) 0.3 mg/dL 0.1-0.5 ALKALINE PHOSPHATASE (BEAKER) (test pjir=511) 89 U/L 40-150 AST (SGOT) (BEAKER) (test bzns=567) 76 U/L 5-34 ALT (SGPT) (BEAKER) (test xkkk=202) 72 U/L 6-55 [id number] 19:21:00 Test Item Value Reference Range Comments PROTIME (BEAKER) (test oeyy=046) 13.6 seconds 11.7-14.7 INR (BEAKER) (test szgs=425) 1.0 <=5.9 PARTIAL THROMBOPLASTIN TIME (BEAKER) (test 28.0 seconds 22.5-36.0 deke=703) RECOMMENDED COUMADIN/WARFARIN INR THERAPY RANGESSTANDARD DOSE: 2.0 - 3.0 Includes: PROPHYLAXIS forvenous thrombosis, systemic embolization; TREATMENT for venous thrombosis and/or pulmonary embolus.HIGH RISK: Target INR is 2.5-3.5 for patients with mechanical heart valves.CBC W/PLT COUNT & AUTO [id number] 19:05:00 Test Item Value Reference Range Comments WHITE BLOOD CELL COUNT (BEAKER) (test dpvw=000) 6.6 K/ L 3.5-10.5 RED BLOOD CELL COUNT (BEAKER) (test mxwz=700) 4.74 M/ L 4.63-6.08 HEMOGLOBIN (BEAKER) (test diuy=040) 15.3 GM/DL 13.7-17.5 HEMATOCRIT (BEAKER) (test jsvt=594) 46.0 % 40.1-51.0 MEAN CORPUSCULAR VOLUME (BEAKER) (test pcja=746) 97.0 fL 79.0-92.2 MEAN CORPUSCULAR HEMOGLOBIN (BEAKER) (test 32.3 pg 25.7-32.2 rlqa=774) MEAN CORPUSCULAR HEMOGLOBIN CONC (BEAKER) (test 33.3 GM/DL 32.3-36.5 dtze=920) RED CELL DISTRIBUTION WIDTH (BEAKER) (test 12.4 % 11.6-14.4 pmkz=562) PLATELET COUNT (BEAKER) (test qlel=133) 165 K/CU MM 150-450 MEAN PLATELET VOLUME (BEAKER) (test akdp=774) 9.8 fL 9.4-12.4 NUCLEATED RED BLOOD CELLS (BEAKER) (test 0 /100 WBC 0-0 imwm=016) NEUTROPHILS RELATIVE PERCENT (BEAKER) (test 50 % wang=450) LYMPHOCYTES RELATIVE PERCENT (BEAKER) (test 33 % fbwg=317) MONOCYTES RELATIVE PERCENT (BEAKER) (test 13 % vfoj=119) EOSINOPHILS RELATIVE PERCENT (BEAKER) (test 3 % groe=364) BASOPHILS RELATIVE PERCENT (BEAKER) (test 1 % sanx=065) NEUTROPHILS ABSOLUTE COUNT (BEAKER) (test 3.27 K/ L 1.78-5.38 wodh=753) LYMPHOCYTES ABSOLUTE COUNT (BEAKER) (test 2.20 K/ L 1.32-3.57 xeqa=738) MONOCYTES ABSOLUTE COUNT (BEAKER) (test 0.88 K/ L 0.30-0.82 gldj=419) EOSINOPHILS ABSOLUTE COUNT (BEAKER) (test 0.17 K/ L 0.04-0.54 ptqf=626) BASOPHILS ABSOLUTE COUNT (BEAKER) (test 0.04 K/ L 0.01-0.08 gmrt=484) IMMATURE GRANULOCYTES-RELATIVE PERCENT (BEAKER) 0 % 0-1 (test rfar=7173)
[2018-08-11 20:07] LABS: Protime INR 1.07
[2018-08-11] MEDS ORDERED: ASPIRIN 81 MG CHEWABLE TABLET ONE (20:07)
[2018-08-11 20:14] LABS: Absolute Lymphocytes (CBC) 2.2 K/uL (0.7-4.9); Absolute Monocytes 0.7 K/uL (0.1-1.3); Absolute Neutrophil 3.3 K/uL (1.8-8.0); Basophils % 0.9 % (0-1.3); Eosinophils % 3.7 % (0-4.4); Hematocrit 39.7 % (39.6-49.0); Lymphocytes % 33.2 % (15.3-44.8); MCH 32.3 pg (27.0-35.0); MCV 95.9 fL (80-100); MPV 8.1 fL (7.6-11.3); Monocytes % 11.4 % (3.3-12.3); RBC Red Blood Cell Count 4.14 M/uL (4.33-5.43)
[2018-08-11 20:27] LABS: ALT/SGPT 48 U/L (12-78); AST/SGOT 37 U/L (15-37); Albumin 3.7 g/dL (3.4-5.0); Alkaline Phosphatase 118 U/L (45-117); BUN Blood Urea Nitrogen 12 mg/dL (7-18); Bicarbonate 26 mmol/L (21-32); Bilirubin Direct 0.1 mg/dL (0-0.2); Bilirubin Total 0.4 mg/dL (0.2-1.0); Glucose Level 141 mg/dL (74-106); Magnesium 2.2 mg/dL (1.8-2.4); NT PRO-BNP 374 pg/mL (<125); Potassium 4.3 mmol/L (3.5-5.1); Protein, Total 7.5 g/dL (6.4-8.2); Sodium Level 140 mmol/L (136-145); Troponin (Emerg Dept Use Only) < 0.02 ng/mL (0.0-0.045)
--- NOTE | 2018-08-11 20:50 | ER ---
Nurse's Notes [facility] Name: Drake Vallejo Age: 53 yrs Sex: Male : 1965 Arrival Date: 08/11/2018 Time: 19:41 Bed 4 Private MD: Henri Rene H Diagnosis: Chest pain, unspecified Presentation: 08/11 19:43 Presenting complaint: Patient states: that he is having chest pain along with shortness fc of breath. Denies any nausea or vomiting. Transition of care: patient was not received from another setting of care. Onset of symptoms was August 11, 2018 at 18:10. Risk Assessment: Do you want to hurt yourself or someone else? Patient reports no desire to harm self or others. Initial Sepsis Screen: Does the patient meet any 2 criteria? No. Patient's initial sepsis screen is negative. Does the patient have a suspected source of infection? No. Patient's initial sepsis screen is negative. Care prior to arrival: Medication(s) given: ASA, 81 mg, x 2, at 1900. 19:43 Method Of Arrival: Wheelchair 19:43 Acuity: TERI 2 fc Historical: - Allergies: 19:55 hydrocet; fc - Home Meds: 19:55 lisinopril 2.5 mg Oral tab 1 tab once daily [Active]; Lipitor 80 mg Oral tab 1 tab once fc daily [Active]; amiodarone 200 mg Oral tab 1 tab once daily [Active]; aspirin 81 mg Oral TbEC 1 tab once daily [Active]; Pepcid 20 mg Oral tab 1 tab once daily [Active]; metformin 500 mg Oral tr24 1 tab once daily [Active]; glimepiride 2 mg Oral tab 1 tab once daily [Active]; nitroglycerin 0.4 mg SL subl 1 tab every 5 minutes [Active]; - PMHx: 19:55 Depression; Hypertension; Myocardial infarction; CAD; Diabetes - NIDDM; fc - PSHx: 19:55 CABG; Heart stents; fc - Immunization history:: Last tetanus immunization: up to date Flu vaccine is not up to date. - Social history:: Patient/guardian denies using alcohol, street drugs, The patient lives with family, Smoking status: Patient/guardian denies using tobacco, Patient uses alcohol, occasionally. Patient/guardian denies using street drugs. - Family history:: not pertinent. - Ebola Screening: : Patient negative for fever greater than or equal to 101.5 degrees Fahrenheit, and additional compatible Ebola Virus Disease symptoms Patient denies exposure to infectious person Patient denies travel to an Ebola-affected area in the 21 days before illness onset. Screenin:43 Abuse screen: Denies threats or abuse. Nutritional screening: No deficits noted. fc Tuberculosis screening: No symptoms or risk factors identified. Fall Risk None identified. Assessment: 19:50 General: Appears uncomfortable, Behavior is calm, cooperative, appropriate for age. ea Pain: Complains of pain in mid-sternal area. Neuro: Level of Consciousness is awake, alert, obeys commands, Oriented to person, place, time, situation. Cardiovascular: Heart tones S1 S2 present Patient's skin is warm and dry. Respiratory: Airway is patent Respiratory effort is even, unlabored, Respiratory pattern is regular, symmetrical. Derm: Skin is pink, warm \T\ dry. 20:50 Reassessment: Patient and/or family updated on plan of care and expected duration. Pain ea level reassessed. Patient is alert, oriented x 3, equal unlabored respirations, skin warm/dry/pink. Awaiting on admission orders. 21:11 Reassessment: Patient and/or family updated on plan of care and expected duration. Pain ea level reassessed. Patient is alert, oriented x 3, equal unlabored respirations, skin warm/dry/pink. 22:04 Reassessment: Patient and/or family updated on plan of care and expected duration. Pain ea level reassessed. Patient is alert, oriented x 3, equal unlabored respirations, skin warm/dry/pink. 23:51 Reassessment: Patient and/or family updated on plan of care and expected duration. Pain ea level reassessed. Patient is alert, oriented x 3, equal unlabored respirations, skin warm/dry/pink. Report called to Estelle PARIS on second floor. Vital Signs: 19:43 BP 115 / 76; Pulse 90; Resp 20; Temp 97.1(O); Pulse Ox 97% on R/A; Weight 117.48 kg fc (R); Height 6 ft. 0 in. (182.88 cm) (R); Pain 5/10; 20:18 BP 120 / 80; Pulse 78; Resp 20; Pulse Ox 95% on R/A; ea 21:02 BP 115 / 73; Pulse 85; Resp 18; Pulse Ox 97% ; ea 22:03 BP 114 / 73; Pulse 78; Resp 17; Pulse Ox 98% ; ea 23:29 BP 127 / 70; Pulse 70; Resp 17; Pulse Ox 100% ; ea 19:43 Body Mass Index 35.13 (117.48 kg, 182.88 cm) fc ED Course: 19:41 Patient arrived in ED. al2 19:42 Henri Rene DO is Private Physician. al2 19:42 Isaac Campos MD is Attending Physician. ma2 19:43 Arm band placed on Patient placed in an exam room, on a stretcher. fc 19:43 Patient has correct armband on for positive identification. Placed in gown. Bed in low fc position. Call light in reach. alarm security or surveillance monitor on. Pulse ox on. NIBP on. 19:47 Inserted saline lock: 20 gauge in right forearm, using aseptic technique. ,using fc aseptic technique. per Mayra PARIS. 19:50 Patient maintains SpO2 saturation greater than 95% on room air. ea 19:51 Triage completed. fc 19:53 Micheline Hanley, RAINA is Primary Nurse. ea 20:29 XRAY Chest (1 view) In Process Unspecified. EDMS 20:49 Mouna Toro MD is Hospitalizing Provider. ma2 21:14 No provider procedures requiring assistance completed. ea 21:14 Patient admitted, IV remains in place. ea Administered Medications: 19:55 Drug: Aspirin 81 mg Route: PO; ea 20:30 Follow up: Response: No adverse reaction ea 19:55 Drug: Aspirin 81 mg Route: PO; ea 20:30 Follow up: Response: No adverse reaction ea Outcome: 20:49 Decision to Hospitalize by Provider. ma2 21:00 Instructed on the need for admit, Demonstrated understanding of instructions. ea 23:49 Admitted to Med/surg accompanied by tech, via wheelchair, room 214, with chart, Report ea called to Estelle PARIS 23:49 Condition: stable 08/12 00:05 Patient left the ED. ea Signatures: Dispatcher [employer] EDMS Adelina Hackett RN RN Micheline Hanley RN RN ea Love, Angelica al2 Cliff Camposd, [facility] ma2
--- NOTE | 2018-08-11 20:50 | EDPHYS ---
Physician Documentation [facility] Name: Drake Vallejo Age: 53 yrs Sex: Male : 1965 Arrival Date: 08/11/2018 Time: 19:41 Bed 4 Private MD: Henri Rene H ED Physician Isaac Campos HPI: 08/11 19:50 This 53 yrs old Male presents to ER via Unassigned with complaints of Chest ma2 Pain. 19:50 The patient or guardian reports chest pain that is located primarily in the substernal ma2 area. Onset: gradually, 2 hour(s) ago. The pain radiates to the right shoulder. Associated signs and symptoms: Pertinent negatives: None. The chest pain is described as a heaviness. Duration: The patient or guardian reports a single episode, that lasted 30 minute(s). Severity of pain: At its worst the pain was moderate. The patient has experienced similar episodes in the past. Historical: - Allergies: 19:55 hydrocet; fc - Home Meds: 19:55 lisinopril 2.5 mg Oral tab 1 tab once daily [Active]; Lipitor 80 mg Oral tab 1 tab once fc daily [Active]; amiodarone 200 mg Oral tab 1 tab once daily [Active]; aspirin 81 mg Oral TbEC 1 tab once daily [Active]; Pepcid 20 mg Oral tab 1 tab once daily [Active]; metformin 500 mg Oral tr24 1 tab once daily [Active]; glimepiride 2 mg Oral tab 1 tab once daily [Active]; nitroglycerin 0.4 mg SL subl 1 tab every 5 minutes [Active]; - PMHx: 19:55 Depression; Hypertension; Myocardial infarction; CAD; Diabetes - NIDDM; fc - PSHx: 19:55 CABG; Heart stents; fc - Immunization history:: Last tetanus immunization: up to date Flu vaccine is not up to date. - Social history:: Patient/guardian denies using alcohol, street drugs, The patient lives with family, Smoking status: Patient/guardian denies using tobacco, Patient uses alcohol, occasionally. Patient/guardian denies using street drugs. - Family history:: not pertinent. - Ebola Screening: : Patient negative for fever greater than or equal to 101.5 degrees Fahrenheit, and additional compatible Ebola Virus Disease symptoms Patient denies exposure to infectious person Patient denies travel to an Ebola-affected area in the 21 days before illness onset. ROS: 19:51 Constitutional: Negative for fever, chills, and weight loss. ma2 19:51 Neck: Negative for injury, pain, and swelling, Respiratory: Negative for shortness of breath, cough, wheezing, and pleuritic chest pain, Abdomen/GI: Negative for abdominal pain, nausea, diarrhea, and constipation, MS/Extremity: Negative for injury and deformity, Skin: Negative for injury, rash, and discoloration. 19:51 Cardiovascular: Positive for chest pain, Negative for edema, orthopnea, palpitations, acute changes. 19:51 All other systems are negative. Exam: 19:51 Constitutional: This is a well developed, well nourished patient who is awake, alert, ma2 and in no acute distress. Chest/axilla: Normal chest wall appearance and motion. Nontender with no deformity. No lesions are appreciated. Cardiovascular: Regular rate and rhythm with a normal S1 and S2. No gallops, murmurs, or rubs. Normal PMI, no JVD. No pulse deficits. Respiratory: Lungs have equal breath sounds bilaterally, clear to auscultation and percussion. No rales, rhonchi or wheezes noted. No increased work of breathing, no retractions or nasal flaring. Abdomen/GI: Soft, non-tender, with normal bowel sounds. No distension or tympany. No guarding or rebound. No evidence of tenderness throughout. MS/ Extremity: Pulses equal, no cyanosis. Neurovascular intact. Full, normal range of motion. Neuro: Awake and alert, GCS 15, oriented to person, place, time, and situation. Cranial nerves II-XII grossly intact. Motor strength 5/5 in all extremities. Sensory grossly intact. Cerebellar exam normal. Normal gait. Vital Signs: 19:43 BP 115 / 76; Pulse 90; Resp 20; Temp 97.1(O); Pulse Ox 97% on R/A; Weight 117.48 kg fc (R); Height 6 ft. 0 in. (182.88 cm) (R); Pain 5/10; 20:18 BP 120 / 80; Pulse 78; Resp 20; Pulse Ox 95% on R/A; ea 21:02 BP 115 / 73; Pulse 85; Resp 18; Pulse Ox 97% ; ea 22:03 BP 114 / 73; Pulse 78; Resp 17; Pulse Ox 98% ; ea 23:29 BP 127 / 70; Pulse 70; Resp 17; Pulse Ox 100% ; ea 19:43 Body Mass Index 35.13 (117.48 kg, 182.88 cm) fc MDM: 19:42 Patient medically screened. [facility] 19:51 Differential diagnosis: abnormal EKG, acute myocardial infarction, acute pericarditis, ma2 anxiety, chest wall pain, gastroesophageal reflux disease (GERD), hiatal hernia, stable angina, thoracic aortic disection. The patient was given aspirin in the Emergency Department. GALO Risk Score: 1 - Three or more CAD risk factors, [HTN], [Elevated Cholesterol], [DM], 1- Known CAD, 1 - ASA use in past 7 days. Medical screen evaluation completed. [facility] emergency medical condition absent. ED course: he took 2 baby asa at home, had cabg 40 days ago . 20:47 Data reviewed: vital signs, nurses notes. Counseling: I had a detailed discussion with ma2 the patient and/or guardian regarding: the historical points, exam findings, and any diagnostic results supporting the discharge/admit diagnosis, the presence of at least one elevated blood pressure reading (>120/80) during this emergency department visit, the need for further work-up and treatment in the hospital. ED course: symptoms resolved, ekg unremarkable workup unremarkable, will admit to obs for acs rule out discussed with dr. juan . 08/11 19:50 Order name: Basic Metabolic Panel; Complete Time: 20:31 [facility] 08/11 19:50 Order name: CBC with Diff; Complete Time: 20:31 [facility] 08/11 19:50 Order name: LFT's; Complete Time: 20:31 [facility] 08/11 19:50 Order name: Magnesium; Complete Time: 20:31 [facility] 08/11 19:50 Order name: NT PRO-BNP; Complete Time: 20:31 [facility] 08/11 19:50 Order name: PT-INR; Complete Time: 20:31 [facility] 08/11 19:50 Order name: Troponin (emerg Dept Use Only); Complete Time: 20:31 [facility] 08/11 19:50 Order name: XRAY Chest (1 view) [facility] 08/11 19:50 Order name: EKG; Complete Time: 19:51 [facility] 08/11 19:50 Order name: Cardiac monitoring; Complete Time: 20:17 nv2 08/11 19:50 Order name: EKG - Nurse/Tech; Complete Time: 20:17 nv2 08/11 19:50 Order name: IV Saline Lock; Complete Time: 20:17 nv2 08/11 19:50 Order name: Labs collected and sent; Complete Time: 20:17 nv2 08/11 19:50 Order name: O2 Per Protocol; Complete Time: 20:17 nv2 08/11 19:50 Order name: O2 Sat Monitoring; Complete Time: 20:17 ma2 Administered Medications: 19:55 Drug: Aspirin 81 mg Route: PO; ea 20:30 Follow up: Response: No adverse reaction ea 19:55 Drug: Aspirin 81 mg Route: PO; ea 20:30 Follow up: Response: No adverse reaction ea Disposition: 08/11/18 20:49 Hospitalization ordered by Mouna Toro for Observation. Preliminary diagnosis is Chest pain, unspecified. - Bed requested for Telemetry/MedSurg (observation). - Status is Observation. ea - Condition is Stable. - Problem is new. - Symptoms are resolved. UTI on Admission? No Signatures: Dispatcher [employer] EDJuliana Porter RN RN kl Chretien, Felicia, RN RN fc Antunez, Elena, RN RN ea Alzahri, Mohammad, MD MD ma2 Corrections: (The following items were deleted from the chart) 23:26 20:49 Hospitalization Ordered by Mouna Toro MD for Observation. Preliminary diagnosis is Chest pain, unspecified. Bed requested for Telemetry/MedSurg (observation). Status is Observation. Condition is Stable. Problem is new. Symptoms are resolved. UTI on Admission? No. ma2 08/12 00:05 08/11 23:26 08/11/2018 20:49 Hospitalization Ordered by Mouna Toro MD for ea Observation. Preliminary diagnosis is Chest pain, unspecified. Bed requested for Telemetry/MedSurg (observation). Status is Observation. Condition is Stable. Problem is new. Symptoms are resolved. UTI on Admission? No. kl
--- NOTE | 2018-08-11 21:34 | RAD REPORT ---
EXAM DESCRIPTION: Reynaldo Single View08/11/2018 8:29 pm CLINICAL HISTORY: Chest pain COMPARISON: June 2018 FINDINGS: The lungs appear clear of acute infiltrate. The heart is enlarged. Postsurgical changes involve the chest.
--- NOTE | 2018-08-11 23:30 | P.HP ---
Certification for Inpatient Patient admitted to: Observation With expected LOS: <2 Midnights Practitioner: I am a practitioner with admitting privileges, knowledge of patient current condition, hospital course, and medical plan of care. Services: Services provided to patient in accordance with Admission requirements found in Title 42 Section 412.3 of the Code of Federal Regulations Patient History Date of Service: 08/11/18 Reason for admission: chest pain History of Present Illness: Mr Vallejo is a 53 years old male with history of HTN, dyslipidemia, CAD s/p CABG about 1 month ago at [facility], who came to ED complaining of chest pain. He describe a sharp pain in his sternal area, radiated to right shoulder, lasting for less than 1 minute, associated with mild SOB. He denied nuasea, or sweating episodes. Intensity of the pain was about 7/10. Lab work shows initial negative trop I, EKG with non-specific T wave abnormalities. CXR without acute infiltrate. Allergies hydrocet Allergy (Uncoded 05/18/17 13:38) Unknown No Known Allergies Allergy (Uncoded 02/18/16 02:23) Unknown Home medications list reviewed: Yes Home Medications: Ascorbic Acid [Vitamin C*] 1,000 mg PO DAILY 03/19/15 Carvedilol [Coreg*] 25 mg PO BID 03/19/15 Multivitamin [Multivitamins] 1 tab PO DAILY 02/15/16 Nitroglycerin [Nitrostat*] 0.4 mg SL UD PRN #1 bottle 02/18/16 Atorvastatin Calcium [Lipitor*] 80 mg PO BEDTIME 07/03/18 Glimepiride [Amaryl*] 2 mg PO BIDAC 07/03/18 Fenofibrate [Tricor*] 48 mg PO DAILY #30 tab 07/04/18 Metformin HCl [Glucophage] 1,000 mg PO BID #60 tablet 07/04/18 Pantoprazole Sodium [Protonix] 40 mg PO DAILY #30 tablet. 07/04/18 - Past Medical/Surgical History Diabetic: Yes -: CAD, multiple stents x7 -: Hypertension -: Diabetes mellitus type 2 -: Hyperlipidemia -: Former tobacco use -: BPH -: Cardiac catheterization with stent placement times 7 -: Right knee repair Psychosocial/ Personal History: Patient is . He has 4 children. 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 moist/pink, EOMI, Sclerae nonicteric Neck: Supple, 2+ carotid pulse no bruit, No LAD, Without JVD or thyroid abnormality Respiratory: Clear to auscultation bilaterally, Normal air movement Cardiovascular: Regular rate/rhythm, Normal S1 S2 Gastrointestinal: Normal bowel sounds, No tenderness Musculoskeletal: No tenderness Integumentary: No rashes Neurological: Normal gait, Normal speech, Normal strength at 5/5 x4 extr, Normal tone, Normal affect Lymphatics: No axilla or inguinal lymphadenopathy - Studies Laboratory Data (last 24 hrs) 08/11/18 19:50: PT 12.6 H, INR 1.07 08/11/18 19:50: WBC 6.5, Hgb 13.4 L, Hct 39.7, Plt Count 210 08/11/18 19:50: Sodium 140, Potassium 4.3, BUN 12, Creatinine 1.20, Glucose 141 H, Magnesium 2.2, Total Bilirubin 0.4, AST 37, ALT 48, Alkaline Phosphatase 118 H Assessment and Plan - Problems (Diagnosis) (1) CAD (coronary artery disease) Current Visit: No Status: Acute Qualifiers: Coronary Disease-Associated Artery/Lesion type: bypass graft [place] vs. transplanted heart: [place] heart Associated angina: with unspecified angina Qualified Code(s): I25.709 - Atherosclerosis of coronary artery bypass graft(s) , unspecified, with unspecified angina pectoris (2) Chest pain Onset Date: 02/16/16 Current Visit: No Status: Acute Qualifiers: Chest pain type: precordial pain (3) Diabetes mellitus, type II Onset Date: 07/04/18 Current Visit: No Status: Acute Qualifiers: Diabetes mellitus [employer] insulin use: without [employer] use Diabetes mellitus complication status: with unspecified complications Qualified Code(s) : E11.8 - Type 2 diabetes mellitus with unspecified complications (4) HTN (hypertension) Onset Date: 07/04/18 Current Visit: No Status: Acute Qualifiers: Hypertension type: essential hypertension (5) Hyperlipemia Onset Date: 07/04/18 Current Visit: No Status: Acute Qualifiers: Hyperlipidemia type: unspecified Qualified Code(s): E78.5 - Hyperlipidemia , unspecified - Plan The patient will be admitted to the hospital due to chest pain. He has had recent CABG. Initial trop I is negative, EKG shows no definitive acute ST-T abnormalities. Will order serial cardiac enzymes, EKG, cardiology evaluation. - Advance Directives Does patient have a Living Will: Yes Does patient have a Durable POA for Healthcare: No - Code Status/Comfort Care Code Status Assessed: Yes Code Status: Full Code
[2018-08-12] MEDS ORDERED: ACETAMINOPHEN 500 MG TAB PO PRN (00:11)
[2018-08-12] MEDS ORDERED: ONDANSETRON 4 MG/2 ML VIAL IV PRN (00:11)
[2018-08-12 00:25] VITALS: BMI 35.5
[2018-08-12 07:01] LABS: Absolute Lymphocytes (CBC) 1.8 K/uL (0.7-4.9); Absolute Monocytes 0.8 K/uL (0.1-1.3); Absolute Neutrophil 2.6 K/uL (1.8-8.0); Basophils % 0.9 % (0-1.3); Eosinophils % 4.4 % (0-4.4); Hematocrit 37.3 % (39.6-49.0); Lymphocytes % 33.3 % (15.3-44.8); MCV 95.2 fL (80-100); MPV 8.4 fL (7.6-11.3); Monocytes % 14.4 % (3.3-12.3); Potassium 3.7 mmol/L (3.5-5.1); RBC Red Blood Cell Count 3.92 M/uL (4.33-5.43)
[2018-08-12] MEDS ORDERED: INSULIN -REGULAR HUMAN 50 UNIT/0.5 ML ML SQ SCH (07:30)
[2018-08-12] MEDS ORDERED: NITROGLYCERIN 0.4 MG/TAB SL PRN (08:42)
--- NOTE | 2018-08-12 08:59 | P.DS ---
Admission Date: 08/11/18 Discharge Date: 08/12/18 Primary Care Provider: Dr. Rene; Cardiology-Dr. Willoughby Disposition: ROUTINE DISCHARGE Discharge Condition: GOOD Reason for Admission: chest pain Consultations: Cardiology-Dr. Connolly Procedures: Chest x-ray: Unremarkable. Postoperative changes noted. Medical Problem list: Chest pain resolved with history of CAD and CABG 1 month ago Hypertension Hyperlipidemia GERD Diabetes mellitus type 2 non-insulin dependent Obesity, BMI 35.6 Brief History of Present Illness: 53-year-old male presented to the emergency room with chest pain. Patient recently hospitalized and transferred to [facility] last month for chest pain. He had an abnormal heart catheterization that required CABG. Patient had CABG done 1 month ago. Patient was admitted for further evaluation. Hospital Course: Patient presented with chest pain history of CAD and recent CABG 1 month ago. Cardiac enzymes unremarkable. Chest x-ray unremarkable. No significant EKG changes noted. Patient seen and evaluated by Cardiology. No cardiac intervention is recommended at this time. At discharge patient will continue with his medications of aspirin 81 mg daily and amiodarone 200 mg daily. Recommendation is for the patient to follow up with cardiology early next week. Patient has an appointment to see Cardiology on Tuesday. Patient may continue with nitroglycerin as needed for chest pain. Lifestyle modification education provided. Patient has hypertension. Blood pressure stable. Patient will continue with carvedilol 25 mg 1 pill twice daily. Recommendation is to maintain blood pressures less 150/80. Further adjustment can be done by his PCP or cardiology. Patient has hyperlipidemia. Patient will continue with medication-Lipitor 80 mg daily. Patient has diabetes mellitus type 2. Currently stable this time. Patient will continue with metformin 1000 mg 1 pill twice daily. Recommendation is to maintain blood sugars less 140 fasting and less than 200 after meals. Further adjustment can be done by his PCP. Patient has GERD. Patient will continue with Protonix 40 mg 1 pill once daily. Lifestyle modification education will be provided. Patient with BMI 35.6. Lifestyle modification education provided. Patient will continue with multi vitamin daily. Vital Signs/Physical Exam: Temp Pulse Resp BP Pulse Ox 97.2 F 79 18 116/71 96 08/12/18 04:00 08/12/18 04:00 08/12/18 04:00 08/12/18 04:00 08/12/18 04:00 General: Alert, In no apparent distress, Oriented x3, Cooperative HEENT: Atraumatic Neck: Supple Respiratory: Clear to auscultation bilaterally, Normal air movement Cardiovascular: Normal pulses, Regular rate/rhythm Gastrointestinal: Normal bowel sounds, Soft and benign, Non-distended, No tenderness, No masses, No rebound, No guarding Musculoskeletal: No erythema, No tenderness, No warmth Integumentary: No tenderness/swelling, No erythema, No warmth, No cyanosis Neurological: Normal speech, Normal strength at 5/5 x4 extr, Normal tone, Normal affect Lymphatics: No axilla or inguinal lymphadenopathy Laboratory Data at Discharge: WBC 5.5 K/uL (4.3-10.9) D 08/12/18 05:55 Hgb 12.6 g/dL (13.6-17.9) L 08/12/18 05:55 Hct 37.3 % (39.6-49.0) L 08/12/18 05:55 Plt Count 199 K/uL (152-406) 08/12/18 05:55 PT 12.6 SECONDS (9.5-12.5) H 08/11/18 19:50 INR 1.07 08/11/18 19:50 Sodium 141 mmol/L (136-145) 08/12/18 05:55 Potassium 3.7 mmol/L (3.5-5.1) 08/12/18 05:55 BUN 12 mg/dL (7-18) 08/12/18 05:55 Creatinine 1.00 mg/dL (0.55-1.3) 08/12/18 05:55 Glucose 142 mg/dL (74-106) H 08/12/18 05:55 Magnesium 2.2 mg/dL (1.8-2.4) 08/11/18 19:50 Total Bilirubin 0.4 mg/dL (0.2-1.0) 08/11/18 19:50 AST 37 U/L (15-37) 08/11/18 19:50 ALT 48 U/L (12-78) 08/11/18 19:50 Alkaline Phosphatase 118 U/L (45-117) H 08/11/18 19:50 Troponin I < 0.02 ng/mL (0.0-0.045) 08/12/18 07:36 Home Medications: Multivitamin [Multivitamins] 1 tab PO DAILY 02/15/16 Nitroglycerin [Nitrostat*] 0.4 mg SL UD PRN #1 bottle 02/18/16 Atorvastatin Calcium [Lipitor*] 80 mg PO BEDTIME 07/03/18 Glimepiride [Amaryl*] 2 mg PO BIDAC 07/03/18 Metformin HCl [Glucophage] 1,000 mg PO BID #60 tablet 07/04/18 Pantoprazole Sodium [Protonix] 40 mg PO DAILY #30 tablet. 07/04/18 Amiodarone HCl [Cordarone*] 200 mg PO DAILY 08/12/18 Aspirin [Adult Aspirin] 81 mg PO DAILY 08/12/18 Carvedilol [Coreg] 25 mg PO BID #60 tab 08/12/18 New Medications: Carvedilol [Coreg] 25 mg PO BID #60 tab Patient Discharge Instructions: 1. Patient will need to follow up with PCP in 1 week to follow up this hospitalization. 2. Patient presented with chest pain history of CAD and recent CABG 1 month ago. Cardiac enzymes unremarkable. Patient seen and evaluated by Cardiology. No cardiac intervention is recommended at this time. At discharge patient will continue with his medications of aspirin 81 mg daily and amiodarone 200 mg daily. Recommendation is for the patient to follow up with cardiology early next week. Patient has an appointment to see Cardiology on Tuesday. Patient may continue with nitroglycerin as needed for chest pain. Lifestyle modification education provided. 3. Patient has hypertension. Blood pressure stable. Patient will continue with carvedilol 25 mg 1 pill twice daily. Recommendation is to maintain blood pressures less 150/80. Further adjustment can be done by his PCP or cardiology. 4. Patient has hyperlipidemia. Patient will continue with medication-Lipitor 80 mg daily. 5. Patient has diabetes mellitus type 2. Currently stable this time. Patient will continue with metformin 1000 mg 1 pill twice daily. Recommendation is to maintain blood sugars less 140 fasting and less than 200 after meals. Further adjustment can be done by his PCP. 6. Patient has GERD. Patient will continue with Protonix 40 mg 1 pill once daily. Lifestyle modification education will be provided. 7. Patient with BMI 35.6. Lifestyle modification education provided. Patient will continue with multi vitamin daily. Diet: ADA Activity: Ad marito Time spent managing pt's care (in minutes): 55
[2018-08-12] MEDS ORDERED: ASPIRIN 81 MG CHEWABLE TABLET PO SCH (09:00)
[2018-08-12] MEDS ORDERED: AMIODARONE HCL 200 MG TAB PO SCH (09:00)
[2018-08-12] MEDS ORDERED: ENOXAPARIN 40 MG/0.4 ML SQ SCH (09:00)
[2018-08-12] MEDS ORDERED: POTASSIUM CL SA 10 MEQ TAB PO ONE (09:00)
[2018-08-12] MEDS ORDERED: HOME MED 1 EA UNK (Metformin Hcl [Glucophage] 1,000 MG) PO SCH (09:00)
[2018-08-12] MEDS ORDERED: CARVEDILOL 12.5 MG TAB PO SCH (09:00)
[2018-08-12] MEDS ORDERED: PANTOPRAZOLE 40MG TABLET PO SCH (09:00)
[2018-08-12] MEDS ORDERED: MULTIVITAMIN PO SCH (09:00)
[2018-08-12] MEDS ORDERED: MULTIVITAMIN TAB PO SCH (09:15)
[2018-08-12 10:47] VITALS: O2SAT 96
[2018-08-12 10:49] VITALS: BP 111/79; TEMP 97.3
--- NOTE | 2018-08-12 13:04 | CON ---
History Of Present Illness: Mr. Vallejo came to the hospital with chest pain. Since he has been here, M I was ruled out by EKGs and enzymes. Mr. Vallejo is known to have severe CAD, but roughly 1 month ago, peter gaspar underwent coronary bypass surgery, and since then he has done well. The pain he had was sharp and stabbing right at the sternum. It resolved after 30 or 40 minutes. It seemed to be associated with moving his arms a little bit and it is almost certainly sternal wound pain. There is no evidence of dehiscence or splitting of the bone or abscess or infection, and the pain is gone now. The patient h as underlying obesity, diabetes, hypertension, dyslipidemia. He had atrial fibrillation while he was recovering from surgery. He remains on Cordarone. We will probably stop that in a month. Medications: His outpatient medications have been nitroglycerin p.r.n., glimepiride, atorvastatin, m etformin, Protonix, amiodarone, and aspirin. Allergies: HE HAS NO ALLERGIES. Social History: He was a tobacco user. No longer smokes. Physical Examination: General: Six feet tall, 262 pounds. Alert, oriented, pleasant. Not in distress. Lungs: Clear. Heart: Within normal limits. Abdomen: Soft. Extremities: Normal. Troponins, 2 different times and they are less than 0.02. Mr. Vallejo is ready for discharge home. Continue outpatient care. Cardiac rehab. Follow up with Dr. Michael geller next week thanks. ALTHEA/KOBE Voice ID: [id number] Report ID: [id number]
--- NOTE | 2018-08-12 15:18 | EKG ---
Test Date: 2018-08-11 Test Time: 19:49:02 Guard Immigration: SHALOM MEASUREMENT RESULTS: Intervals: Rate: 84 NV: 152 QRSD: 100 QT: 342 QTc: 404 Wrights: P: 34 NV: 152 QRS: 4 T: -7 INTERPRETIVE STATEMENTS: Normal sinus rhythm Septal infarct, age undetermined Abnormal ECG Compared to ECG 07/03/2018 13:46:03 Myocardial infarct finding now present Ventricular premature complex(es) no longer present Left-axis deviation no longer present Electronically Signed On 08-12-18 15:17:47 [employer] by Long Connolly
[2018-08-12] MEDS ORDERED: GLIMEPIRIDE 2 MG TABLET PO SCH (16:30)
[2018-08-12] MEDS ORDERED: METFORMIN HCL 500 MG TAB PO SCH (17:00)
[2018-08-12] MEDS ORDERED: ATORVASTATIN 20 MG TAB PO SCH (21:00)
== END 2018-08-12 09:37 | disposition home or self-care (01) ==
LOC: ER 19:41 → ERHOLD 23:18 → 2ND 23:49
PROVIDERS: ADMIT Internal Medicine; ATTEND Internal Medicine
DX: R07.9 Chest pain, unspecified (principal); I25.10 Atherosclerotic heart disease of native coronary artery without angina pectoris; Z95.1 Presence of aortocoronary bypass graft; I10 Essential (primary) hypertension; E78.5 Hyperlipidemia, unspecified; K21.9 Gastro-esophageal reflux disease without esophagitis; E11.9 Type 2 diabetes mellitus without complications; E66.9 Obesity, unspecified; Z68.35 Body mass index [BMI] 35.0-35.9, adult
CPT/HCPCS: 36415; 71045; 80048; 80076; 82962; 83735; 83880; 84484; 85025; 85610; 93005; 99285; G0378; J1650

== ENCOUNTER 2019-01-10 08:23 | Observation (INO) | payer SELFPAY ==
[2019-01-10] MEDS ORDERED: NITROGLYCERIN 0.4 MG/TAB SL ONE (08:50)
--- NOTE | 2019-01-10 08:50 | RAD REPORT ---
EXAM DESCRIPTION: RAD - Chest Single View - 01/10/2019 8:44 am CLINICAL HISTORY: CHEST PAIN Chest pain. COMPARISON: Chest Single View dated 08/11/2018; Chest Pa And Lat (2 Views) dated 07/04/2018; Chest Si ngle View dated 07/03/2018; Chest Single View dated 05/15/2017 FINDINGS: Portable technique limits examination quality. The lungs are grossly clear. The heart is moderately enlarged in size. No displaced fractures.Sternot magdiel wires peer IMPRESSION: No acute intrathoracic process suspected.
[2019-01-10 09:06] LABS: Absolute Lymphocytes (CBC) 1.6 K/uL (0.7-4.9); Absolute Monocytes 0.6 K/uL (0.1-1.3); Absolute Neutrophil 3.6 K/uL (1.8-8.0); Basophils % 0.7 % (0-1.3); Eosinophils % 2.2 % (0-4.4); Hematocrit 46.5 % (39.6-49.0); Lymphocytes % 26.4 % (15.3-44.8); MPV 8.6 fL (7.6-11.3); Monocytes % 10.7 % (3.3-12.3)
--- OUTSIDE RECORDS SUMMARY | 2019-01-10 09:10 | XMS REPORT | Clinical Summary ---
:1965 Author Organization [facility] Address [address] [place] [address] Care Team Providers Name Role Phone Henri Rene DO Primary Care Provider Allergies No Known Allergies Medications Medication Sig Dispensed Refills Start Date End Date Status citalopram (CeleXA) 20 Take 20 mg by 0 Active MG tablet mouth daily. clopidogrel (PLAVIX) 75 Take 75 mg by 0 Active mg tablet mouth daily. carvedilol (COREG) 25 Take 25 mg by 0 Active MG tablet mouth 2 (two) times a day with meals. atorvastatin (LIPITOR) Take 40 mg by 0 Active 40 MG tablet mouth 2 (two) times a day. aspirin (ECOTRIN) 81 MG Take 81 mg by 0 Active enteric coated tablet mouth daily. nitroglycerin Place 0.4 mg 0 Active (NITROSTAT) 0.4 MG SL under the tongue tablet every 5 (five) minutes as needed for chest pain. ascorbic acid, vitamin Take 500 mg by 0 Active C, (VITAMIN C) 500 MG mouth daily. tablet multivitamin Take 1 tablet by 0 Active (THERAGRAN) tablet mouth daily. ranitidine (ZANTAC) 150 Take 150 mg by 0 Active MG tablet mouth daily. Active Problems Problem Noted Date Type 2 diabetes mellitus without complication 10/30/2017 Obesity (BMI 30-39.9) 10/30/2017 Essential hypertension 10/30/2017 Unstable angina pectoris 10/28/2017 Social History Tobacco Use Types Packs/Day Years Used Date Former Smoker Smokeless Tobacco: Current User Alcohol Use Drinks/Week oz/Week Comments Yes 12 Cans of beer 7.2 Sex Assigned at Date Recorded Not on file Job Start Date Occupation Industry Not on file Not on file Not on file Travel History Travel Start Travel End No recent travel history available. Last Filed Vital Signs Not on file Plan of Treatment Health Maintenance Due Date Last Done Comments DIABETIC RETINAL EYE EXAM 1965 DIABETIC FOOT EXAM 1975 URINE MICROALBUMIN 1975 COLON CANCER SCREENING 2015 SHINGLES VACCINES (#1) 2015 INFLUENZA VACCINE 03/29/2019 Results Not on fileafter 01/09/2018 Insurance Payer Benefit Plan / Group Subscriber ID Type Phone Address BCBS BCBS CHOICE PPO/F[employer]ERAL EMPL PPO xxxxxxxxxxxx PPO Advance Directives Patient has advance care planning documents on file. For more information, please contact:Gordy Castaneda[address] [place] [address]
--- OUTSIDE RECORDS SUMMARY | 2019-01-10 09:11 | XMS REPORT | Clinical Summary ---
:1965 Author Organization [facility] Address [address] [place] [address] Care Team Providers Name Role Phone Twan [...] daily. lisinopril Take 1 tablet 30 tablet 11 07/11/2018 07/11/2019 Active (PRINIVIL,ZESTRIL) (2.5 mg total) 2.5 MG tablet by mouth daily. acetaminophen-codeine Take 1 tablet by 30 tablet 0 07/11/2018 07/21/2018 (TYLENOL #3) 300-30 mouth every 4 mg per tablet (four) hours as needed for up to 10 days. 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 Diastolic CHF [...] insufficiency; Other shock (HCC); Postoperative pain after 01/09/2018 Family History Medical History Relation Name Comments [...] Taken Blood Pressure 103/51 07/11/2018 3:45 PM [employer] INSPECTOR Pulse 67 07/11/2018 3:45 PM [employer] AND [employer]ICE [employer] INSPECTOR Temperature 37.1 C (98.7 F) 07/11/2018 3:45 PM [employer] INSPECTOR Respiratory Rate 20 07/11/2018 3:45 PM [employer] INSPECTOR Oxygen Saturation 94% 07/11/2018 3:45 PM [employer] INSPECTOR Inhaled Oxygen Concentration 60% 07/08/2018 11:40 AM [employer] AND [employer] INSPECTOR Weight 116.5 kg (256 lb 12.8 oz) 07/11/2018 8:21 AM [employer]ICE [employer] INSPECTOR Height 182.9 cm (6') 07/04/2018 6:53 PM [employer] INSPECTOR Body Mass Index 34.83 07/11/2018 8:21 AM [employer] AND [employer] INSPECTOR Plan of Treatment Not on file Procedures Procedure Name Priority Date/Time Associated Comments Diagnosis RHYTHM STRIP - SCAN 12/08/2018 1:41 PM CDT RHYTHM STRIP - SCAN 12/06/2018 9:40 AM CDT RHYTHM STRIP - SCAN 11/21/2018 2:52 PM CDT REPORT OF PROCEDURE - 07/12/2018 12:23 ENDOSCOPY SCAN PM [employer] INSPECTOR RHYTHM STRIP - SCAN 07/12/2018 12:23 PM [employer] AND [employer] INSPECTOR URINALYSIS W/ REFLEX STAT 07/11/2018 3:57 Results for this URINE CULTURE PM [employer] INSPECTOR procedure are in the results section. POCT-GLUCOSE METER Routine 07/11/2018 12:28 Results for this PM [employer] INSPECTOR procedure are in the results section. POCT-GLUCOSE METER Routine 07/11/2018 7:50 Results for this AM [employer] INSPECTOR procedure are in the results section. XR CHEST 1 VIEW Routine 07/11/2018 5:05 Results for this PORTABLE/BEDSIDE AM [employer] INSPECTOR procedure are in the results section. MAGNESIUM Routine 07/11/2018 4:35 Results for this AM [employer] INSPECTOR procedure are in the results section. CBC (HEMOGRAM ONLY) CAITLYN 07/11/2018 4:35 Results for this AM [employer] INSPECTOR procedure are in the results section. BASIC METABOLIC PANEL Routine 07/11/2018 4:35 Results for this (7) AM [employer] INSPECTOR procedure are in the results section. POCT-GLUCOSE METER Routine 07/10/2018 9:32 Results for this PM [employer] INSPECTOR procedure are in the results section. POCT-GLUCOSE METER Routine 07/10/2018 5:47 Results for this PM [employer] INSPECTOR procedure are in the results section. B-TYPE NATRIURETIC Routine 07/10/2018 1:38 Results for this FACTOR (BNP) PM [employer] INSPECTOR procedure are in the results section. ECG 12-LEAD Routine 07/10/2018 12:43 PM [employer] INSPECTOR Procedure Note - Interface, External Ris In - 07/10/2018 12:53 PM [employer] INSPECTOR Ventricular Rate 63 BPM Atrial Rate 63 BPM P-R Interval 146 ms QRS Duration 102 ms Q-T Interval 420 ms QTC Calculation(Bazett) 429 ms P Minto 37 degrees R Minto -4 degrees T Minto 45 degrees Sinus rhythm with occasional Premature ventricular complexes Incomplete right bundle branch block Septal infarct (cited on or before 10-JUL-2018) Abnormal ECG When compared with ECG of 08-JUL-2018 07:56, Premature ventricular complexes are now Present Questionable change in initial forces of Septal leads ECG 12-LEAD Routine 07/10/2018 12:43 PM [employer] INS[employer]OR ECG 12-LEAD Routine 07/10/2018 12:42 PM [employer] AND [employer] INSPECTOR POCT-GLUCOSE METER Routine 07/10/2018 12:19 PM [employer] AND [employer] INSPECTOR POCT-GLUCOSE METER Routine 07/10/2018 8:22 AM [employer] INSPECTOR XR CHEST 1 VIEW Routine 07/10/2018 6:05 AM [employer] AND [employer] INSPECTOR Results for this PORTABLE/BEDSIDE procedure are in the results section. MAGNESIUM Routine 07/10/2018 5:03 AM [employer] AND [employer]ICE LINE INSPECTOR CBC (HEMOGRAM ONLY) CAITLYN 07/10/2018 5:03 AM [employer] AND [employer]ICE LINE INSPECTOR BASIC METABOLIC PANEL (7) Routine 07/10/2018 5:03 AM [employer] AND [employer]ICE [employer] INSPECTOR POCT-GLUCOSE METER Routine 07/09/2018 9:18 PM [employer] AND [employer] INSPECTOR PHOSPHORUS Routine 07/09/2018 12:15 PM [employer] AND [employer] INSPECTOR MAGNESIUM Routine 07/09/2018 12:15 PM [employer] AND [employer]ICE LINE INSPECTOR POTASSIUM Routine 07/09/2018 12:15 PM [employer] AND [employer] INSPECTOR POCT-GLUCOSE METER Routine 07/09/2018 12:02 PM [employer] INSPECTOR XR CHEST 1 VIEW Routine 07/09/2018 9:32 AM [employer] INSPECTOR Results for this PORTABLE/BEDSIDE procedure are in the results section. POCT-GLUCOSE METER Routine 07/09/2018 8:00 AM [employer] AND [employer]ICE [employer] INSPECTOR PHOSPHORUS Routine 07/09/2018 4:00 AM [employer] AND [employer]ICE LINE INSPECTOR CBC (HEMOGRAM ONLY) CAITLYN 07/09/2018 4:00 AM [employer] AND [employer]ICE LINE INSPECTOR MAGNESIUM Routine 07/09/2018 4:00 AM [employer] AND [employer]ICE [employer] INSPECTOR BASIC METABOLIC PANEL (7) Routine 07/09/2018 4:00 AM [employer] AND [employer]ICE [employer] INSPECTOR POTASSIUM Routine 07/09/2018 12:10 AM [employer] AND [employer]ICE LINE INSPECTOR POCT-GLUCOSE METER Routine 07/08/2018 8:46 PM [employer] AND [employer]ICE [employer] INSPECTOR ECHOCARDIOGRAM REPORT - SCAN 07/08/2018 7:20 PM [employer] INSPECTOR POTASSIUM Routine 07/08/2018 5:54 PM [employer] AND [employer]ICE [employer] INSPECTOR PHOSPHORUS Routine 07/08/2018 5:54 PM [employer] AND [employer]ICE LINE INSPECTOR CALCIUM, IONIZED Routine 07/08/2018 5:54 PM [employer] AND [employer]ICE [employer] INSPECTOR MAGNESIUM Routine 07/08/2018 5:54 PM [employer] AND [employer]ICE [employer] INSPECTOR POCT-GLUCOSE METER Routine 07/08/2018 5:15 PM [employer] AND [employer]ICE [employer] INSPECTOR POCT-GLUCOSE METER Routine 07/08/2018 11:41 AM [employer] INSPECTOR XR CHEST 1 VIEW CAITLYN 07/08/2018 9:08 AM [employer] AND [employer]ICE [employer] INSPECTOR Results for this PORTABLE/BEDSIDE procedure are in the results section. BLOOD GAS, ARTERIAL Routine 07/08/2018 8:21 AM [employer] INSPECTOR ECG 12-LEAD Routine 07/08/2018 7:56 AM [employer] INSPECTOR Procedure Note - Interface, External Ris In - 07/08/2018 7:04 AM [employer] INSPECTOR Ventricular Rate 76 BPM Atrial Rate 76 BPM P-R Interval 144 ms QRS Duration 102 ms Q-T Interval 372 ms QTC Calculation(Bazett) 418 ms P Minto 39 degrees R Minto 5 degrees T Minto 26 degrees Normal sinus rhythm Cannot rule out Anterior infarct , age undetermined Abnormal ECG When compared with ECG of 07-JUL-2018 08:47, Premature ventricular complexes are no longer Present Incomplete right bundle branch block is no longer Present ECG 12-LEAD Routine 07/08/2018 7:56 Results for this AM [employer] INSPECTOR procedure are in the results section. POCT-GLUCOSE METER Routine 07/08/2018 5:56 Results for this AM [employer] INSPECTOR procedure are in the results section. CBC W/PLT COUNT & Routine 07/08/2018 5:53 Results for this AUTO DIFFERENTIAL AM [employer] INSPECTOR procedure are in the results section. PHOSPHORUS Routine 07/08/2018 5:53 Results for this AM [employer] INSPECTOR procedure are in the results section. MAGNESIUM Routine 07/08/2018 5:53 Results for this AM [employer] INSPECTOR procedure are in the results section. BASIC METABOLIC PANEL Routine 07/08/2018 5:53 Results for this (7) AM [employer] INSPECTOR procedure are in the results section. CBC W/PLT COUNT & Routine 07/08/2018 5:53 Results for this AUTO DIFFERENTIAL AM [employer] INSPECTOR procedure are in the results section. POCT-GLUCOSE METER Routine 07/07/2018 9:27 Results for this PM [employer] INSPECTOR procedure are in the results section. BLOOD GAS, ARTERIAL Routine 07/07/2018 9:24 Results for this PM [employer] INSPECTOR procedure are in the results section. CT INSERT Routine 07/07/2018 8:23 Acute respiratory Results for this CATH,ART,PERCUT,SHORT PM [employer] INSPECTOR insufficiency procedure are in TERM the results section. OXYGEN SATURATION, STAT 07/07/2018 7:25 Results for this MEASURED PM [employer] INSPECTOR procedure are in the results section. 2D ECHO W/ DOPPLER STAT 07/07/2018 6:09 Results for this (CW/PW/COLOR) PM [employer] INSPECTOR procedure are in the results section. TRANSFUSION SERVICE 07/07/2018 5:53 REPORT - SCAN PM [employer] INSPECTOR POCT-GLUCOSE METER Routine 07/07/2018 4:24 Results for this PM [employer] INSPECTOR procedure are in the results section. LACTIC ACID, VENOUS CAITLYN 07/07/2018 4:20 Results for this PM [employer] INSPECTOR procedure are in the results section. BLOOD GAS, VENOUS STAT 07/07/2018 4:20 Results for this PM [employer] INSPECTOR procedure are in the results section. BLOOD GAS, ARTERIAL STAT 07/07/2018 1:19 Results for this PM [employer] INSPECTOR procedure are in the results section. (CELLAVISION MANUAL Routine 07/07/2018 12:28 Results for this DIFF) PM [employer] INSPECTOR procedure are in the results section. CBC W/PLT COUNT & Routine 07/07/2018 12:28 Results for this AUTO DIFFERENTIAL PM [employer] INSPECTOR procedure are in the results section. MAGNESIUM Routine 07/07/2018 12:28 Results for this PM [employer] INSPECTOR procedure are in the results section. CALCIUM, IONIZED Routine 07/07/2018 12:28 Results for this PM [employer] INSPECTOR procedure are in the results section. BASIC METABOLIC PANEL Routine 07/07/2018 12:28 Results for this (7) PM [employer] INSPECTOR procedure are in the results section. CBC W/PLT COUNT & Routine 07/07/2018 12:28 Results for this AUTO DIFFERENTIAL PM [employer] INSPECTOR procedure are in the results section. MAGNESIUM Routine 07/07/2018 10:36 Results for this AM [employer] INSPECTOR procedure are in the results section. HGB/HCT (H&H) - STAT STAT 07/07/2018 10:36 Results for this LAB AM [employer] INSPECTOR procedure are in the results section. GLUCOSE-STAT LAB STAT 07/07/2018 10:36 Results for this AM [employer] INSPECTOR procedure are in the results section. POTASSIUM-STAT LAB STAT 07/07/2018 10:36 Results for this AM [employer] INSPECTOR procedure are in the results section. SODIUM NA-STAT LAB STAT 07/07/2018 10:36 Results for this AM [employer] INSPECTOR procedure are in the results section. RRL CRITICAL LABS STAT 07/07/2018 10:36 Results for this (ABG,NA,K,H&H,GLUCOSE AM [employer] INSPECTOR procedure are in ) the results section. ECG 12-LEAD Routine 07/07/2018 8:49 AM [employer] INSPECTOR Procedure Note - Interface, External Ris In - 07/07/2018 8:54 AM [employer] INSPECTOR Ventricular Rate 65 BPM Atrial Rate 65 BPM P-R Interval 156 ms QRS Duration 102 ms Q-T Interval 416 ms QTC Calculation(Bazett) 432 ms P Minto 45 degrees R Minto 4 degrees T Minto 39 degrees Sinus rhythm with occasional Premature ventricular complexes Incomplete right bundle branch block Borderline ECG When compared with ECG of 07-JUL-2018 08:47, No significant change was found ECG 12-LEAD Routine 07/07/2018 8:47 AM [employer] INSPECTOR Procedure Note - Interface, External Ris In - 07/07/2018 8:53 AM [employer] INSPECTOR Ventricular Rate 62 BPM Atrial Rate 62 BPM P-R Interval 160 ms QRS Duration 104 ms Q-T Interval 414 ms QTC Calculation(Bazett) 420 ms P Minto 48 degrees R Minto 5 degrees T Minto 43 degrees Sinus rhythm with occasional Premature [...] 12-LEAD STAT 07/07/2018 8:47 Results for AM [employer] INSPECTOR this procedure are in the results section. ECG 12-LEAD Routine 07/07/2018 8:46 Results for AM [employer] INSPECTOR this procedure are in the results section. CBC W/PLT COUNT & AUTO Routine 07/07/2018 4:19 Results for DIFFERENTIAL AM [employer] INSPECTOR this procedure are in the results section. PHOSPHORUS Routine 07/07/2018 4:19 Results for AM [employer] INSPECTOR this procedure are in the results section. MAGNESIUM Routine 07/07/2018 4:19 Results for AM [employer] INSPECTOR this procedure are in the results section. BASIC METABOLIC PANEL (7) Routine 07/07/2018 4:19 Results for AM [employer] INSPECTOR this procedure are in the results section. CBC W/PLT COUNT & AUTO Routine 07/07/2018 4:19 Results for DIFFERENTIAL AM [employer] INSPECTOR this procedure are in the results section. XR CHEST 1 VIEW Routine 07/07/2018 3:10 Results for PORTABLE/BEDSIDE AM [employer] INSPECTOR this procedure are in the results section. POCT-GLUCOSE METER Routine 07/06/2018 10:16 Results for PM [employer] INSPECTOR this procedure are in the results section. BLOOD GAS, ARTERIAL STAT 07/06/2018 8:04 Results for PM [employer] INSPECTOR this procedure are in the results section. POCT-GLUCOSE METER Routine 07/06/2018 5:19 Results for PM [employer] INSPECTOR this procedure are in the results section. PREPARE RBC STAT 07/06/2018 4:52 Results for PM [employer] INSPECTOR this procedure are in the results section. BASIC METABOLIC PANEL (7) Routine 07/06/2018 4:51 Results for PM [employer] INSPECTOR this procedure are in the results section. LACTIC ACID, ARTERIAL STAT 07/06/2018 3:54 Results for PM [employer] INSPECTOR this procedure are in the results section. OXYGEN SATURATION, STAT 07/06/2018 3:51 Results for MEASURED PM [employer] INSPECTOR this procedure are in the results section. FIBRINOGEN Routine 07/06/2018 3:51 Results for PM [employer] INSPECTOR this procedure are in the results section. PT/APTT Routine 07/06/2018 3:51 Results for PM [employer] INSPECTOR this procedure are in the results section. PROTHROMBIN TIME/INR Routine 07/06/2018 3:51 Results for PM [employer] INSPECTOR this procedure are in the results section. (CELLAVISION MANUAL DIFF) STAT 07/06/2018 3:48 Results for PM [employer] INSPECTOR this procedure are in the results section. CBC W/PLT COUNT & AUTO STAT 07/06/2018 3:48 Results for DIFFERENTIAL PM [employer] INSPECTOR this procedure are in the results section. CBC W/PLT COUNT & AUTO STAT 07/06/2018 3:48 Results for DIFFERENTIAL PM [employer] INSPECTOR this procedure are in the results section. PHOSPHORUS STAT 07/06/2018 3:48 Results for PM [employer] INSPECTOR this procedure are in the results section. GLUCOSE STAT 07/06/2018 3:48 Results for PM [employer] INSPECTOR this procedure are in the results section. MAGNESIUM STAT 07/06/2018 3:48 Results for PM [employer] INSPECTOR this procedure are in the results section. POTASSIUM STAT 07/06/2018 3:48 Results for PM [employer] INSPECTOR this procedure are in the results section. SODIUM STAT 07/06/2018 3:48 Results for PM [employer] INSPECTOR this procedure are in the results section. BLOOD GAS, ARTERIAL STAT 07/06/2018 3:48 Results for PM [employer] INSPECTOR this procedure are in the results section. XR CHEST 1 VIEW Routine 07/06/2018 3:44 Results for PORTABLE/BEDSIDE PM [employer] INSPECTOR this procedure are in the results section. PLATELET COUNT STAT 07/06/2018 2:02 Results for PM [employer] INSPECTOR this procedure are in the results section. THROMBOELASTOGRAPH (TEG) STAT 07/06/2018 1:55 Results for PM [employer] INSPECTOR this procedure are in the results section. POCT-ACT Routine 07/06/2018 1:55 Results for PM [employer] INSPECTOR this procedure are in the results section. HGB/HCT (H&H) - STAT LAB STAT 07/06/2018 1:53 Results for PM [employer] INSPECTOR this procedure are in the results section. GLUCOSE-STAT LAB STAT 07/06/2018 1:53 Results for PM [employer] INSPECTOR this procedure are in the results section. POTASSIUM-STAT LAB STAT 07/06/2018 1:53 Results for PM [employer] INSPECTOR this procedure are in the results section. SODIUM NA-STAT LAB STAT 07/06/2018 1:53 Results for PM [employer] INSPECTOR this procedure are in the results section. BLOOD GAS, ARTERIAL STAT 07/06/2018 1:53 Results for PM [employer] INSPECTOR this procedure are in the results section. FIBRINOGEN STAT 07/06/2018 1:53 Results for PM [employer] INSPECTOR this procedure are in the results section. APTT STAT 07/06/2018 1:53 Results for PM [employer] INSPECTOR this procedure are in the results section. PROTHROMBIN TIME/INR STAT 07/06/2018 1:53 Results for PM [employer] INSPECTOR this procedure are in the results section. RRL CRITICAL LABS STAT 07/06/2018 1:53 Results for (ABG,NA,K,H&H,GLUCOSE) PM [employer] INSPECTOR this procedure are in the results section. POCT-ACT Routine 07/06/2018 1:27 Results for PM [employer] INSPECTOR this procedure are in the results section. POCT-ACT Routine 07/06/2018 1:09 Results for PM [employer] INSPECTOR this procedure are in the results section. HGB/HCT (H&H) - STAT LAB STAT 07/06/2018 1:07 Results for PM [employer] INSPECTOR this procedure are in the results section. GLUCOSE-STAT LAB STAT 07/06/2018 1:07 Results for PM [employer] INSPECTOR this procedure are in the results section. POTASSIUM-STAT LAB STAT 07/06/2018 1:07 Results for PM [employer]ICE [employer] INSPECTOR this procedure are in the results section. SODIUM NA-STAT LAB STAT 07/06/2018 1:07 Results for PM [employer]ICE [employer] INSPECTOR this procedure are in the results section. BLOOD GAS, ARTERIAL STAT 07/06/2018 1:07 Results for PM [employer] INSPECTOR this procedure are in the results section. RRL CRITICAL LABS STAT 07/06/2018 1:07 Results for (ABG,NA,K,H&H,GLUCOSE) PM [employer] INSPECTOR this procedure are in the results section. BLOOD GAS, VENOUS STAT 07/06/2018 1:07 Results for PM [employer] INSPECTOR this procedure are in the results section. HGB/HCT (H&H) - STAT LAB STAT 07/06/2018 12:52 Results for PM [employer] INSPECTOR this procedure are in the results section. GLUCOSE-STAT LAB STAT 07/06/2018 12:52 Results for PM [employer] INSPECTOR this procedure are in the results section. POTASSIUM-STAT LAB STAT 07/06/2018 12:52 Results for PM [employer]ICE [employer] INSPECTOR this procedure are in the results section. SODIUM NA-STAT LAB STAT 07/06/2018 12:52 Results for PM [employer] INSPECTOR this procedure are in the results section. BLOOD GAS, ARTERIAL STAT 07/06/2018 12:52 Results for PM [employer] INSPECTOR this procedure are in the results section. CALCIUM, IONIZED STAT 07/06/2018 12:52 Results for PM [employer]ICE [employer] INSPECTOR this procedure are in the results section. RRL CRITICAL LABS STAT 07/06/2018 12:52 Results for (ABG,NA,K,H&H,GLUCOSE) PM [employer]ICE [employer] INSPECTOR this procedure are in the results section. ENDOSCOPIC HARVEST,VEIN 07/06/2018 9:10 Coronary artery AM [employer] INSPECTOR disease involving [place] heart with angina pectoris, unspecified vessel or lesion type ([facility]) [place] CORONARY 07/06/2018 9:10 Coronary artery ROXANE/SVG AM [employer] AND [employer]ICE LINE INSPECTOR disease involving [place] heart with angina pectoris, unspecified vessel or lesion type ([facility]) POCT-GLUCOSE METER Routine 07/06/2018 7:10 Results for AM [employer]ICE [employer] INSPECTOR this procedure are in the results section. POCT-ACT Routine 07/06/2018 6:44 Results for AM [employer] INSPECTOR this procedure are in the results section. CBC W/PLT COUNT & AUTO Routine 07/06/2018 6:04 Results for DIFFERENTIAL AM [employer] INSPECTOR this procedure are in the results section. APTT Routine 07/06/2018 6:04 Results for AM [employer] INSPECTOR this procedure are in the results section. CBC W/PLT COUNT & AUTO Routine 07/06/2018 6:04 Results for DIFFERENTIAL AM [employer] INSPECTOR this procedure are in the results section. ECG 12-LEAD Routine 07/06/2018 5:21 Results for AM [employer]ICE [employer] INSPECTOR this procedure are in the results section. CBC W/PLT COUNT & AUTO Routine 07/06/2018 12:32 Results for DIFFERENTIAL AM [employer] INSPECTOR this procedure are in the results section. ABORH, MANUAL Routine 07/06/2018 12:32 Results for AM [employer]ICE [employer] INSPECTOR this procedure are in the results section. TYPE AND SCREEN, Routine 07/06/2018 12:32 Results for AUTOMATED AM [employer]ICE [employer] INSPECTOR this procedure are in the results section. MAGNESIUM Routine 07/06/2018 12:32 Results for AM [employer] INSPECTOR this procedure are in the results section. COMPREHENSIVE METABOLIC Routine 07/06/2018 12:32 Results for PANEL AM [employer] INSPECTOR this procedure are in the results section. CBC W/PLT COUNT & AUTO Routine 07/06/2018 12:32 Results for DIFFERENTIAL AM [employer]ICE [employer] INSPECTOR this procedure are in the results section. PROTHROMBIN TIME/INR Routine 07/06/2018 12:32 Results for AM [employer] INSPECTOR this procedure are in the results section. APTT Routine 07/06/2018 12:32 Results for AM [employer]ICE [employer] INSPECTOR this procedure are in the results section. POCT-GLUCOSE METER Routine 07/05/2018 9:20 Results for PM [employer] INSPECTOR this procedure are in the results section. APTT Routine 07/05/2018 6:26 Results for PM [employer] INSPECTOR this procedure are in the results section. POCT-GLUCOSE METER Routine 07/05/2018 6:01 Results for PM [employer]ICE [employer] INSPECTOR this procedure are in the results section. POCT-GLUCOSE METER Routine 07/05/2018 12:37 Results for PM [employer] INSPECTOR this procedure are in the results section. APTT Routine 07/05/2018 8:37 Results for AM [employer]ICE [employer] INSPECTOR this procedure are in the results section. POCT-GLUCOSE METER Routine 07/05/2018 7:33 Results for AM [employer]ICE [employer] INSPECTOR this procedure are in the results section. XR CHEST 1 VIEW Routine 07/05/2018 4:41 Results for PORTABLE/BEDSIDE AM [employer] INSPECTOR this procedure are in the results section. CBC W/PLT COUNT & AUTO Routine 07/05/2018 2:00 Results for DIFFERENTIAL AM [employer] INSPECTOR this procedure are in the results section. APTT Routine 07/05/2018 2:00 Results for AM [employer] INSPECTOR this procedure are in the results section. B-TYPE NATRIURETIC FACTOR Routine 07/05/2018 2:00 Results for (BNP) AM [employer] INSPECTOR this procedure are in the results section. PLATELET AGGREGATION: AP Routine 07/05/2018 2:00 Results for FUNCTION SCREEN AM [employer] INSPECTOR this procedure are in the results section. MAGNESIUM Routine 07/05/2018 2:00 Results for AM [employer] INSPECTOR this procedure are in the results section. BASIC METABOLIC PANEL (7) Routine 07/05/2018 2:00 Results for AM [employer]ICE [employer] INSPECTOR this procedure are in the results section. CBC W/PLT COUNT & AUTO Routine 07/05/2018 2:00 Results for DIFFERENTIAL AM [employer]ICE [employer] INSPECTOR this procedure are in the results section. POCT-GLUCOSE METER Routine 07/04/2018 9:07 Results for PM [employer]ICE [employer] INSPECTOR this procedure are in the results section. CBC W/PLT COUNT & AUTO Routine 07/04/2018 6:51 Results for DIFFERENTIAL PM [employer] AND [employer]ICE [employer] INSPECTOR this procedure are in the results section. CBC W/PLT COUNT & AUTO Routine 07/04/2018 6:51 Results for DIFFERENTIAL PM METER AND SERVICE LINE INSPECTOR this procedure are in the results section. HEPATIC FUNCTION PANEL Routine 07/04/2018 6:51 Results for PM METER AND SERVICE LINE INSPECTOR this procedure are in the results section. LIPID PANEL Routine 07/04/2018 6:51 Results for PM METER AND SERVICE LINE INSPECTOR this procedure are in the results section. TSH/FREE T4 IF INDICATED Routine 07/04/2018 6:51 Results for PM METER AND SERVICE LINE INSPECTOR this procedure are in the results section. PT/APTT Routine 07/04/2018 6:51 Results for PM METER AND SERVICE LINE INSPECTOR this procedure are in the results section. HEMOGLOBIN A1C AP Routine 07/04/2018 6:51 Results for PM METER AND SERVICE LINE INSPECTOR this procedure are in the results section. after 01/09/2018 Results RHYTHM STRIP - SCAN (12/08/2018 1:41 PM CDT)Only the most recent of4 resultswithin the time period is included. Narrative Performed At EKG-SCANNED (07/12/2018 12:23 PM METER AND SERVICE LINE INSPECTOR) Narrative Performed At Urinalysis w/Microscopic + Reflex to Culture (07/11/2018 3:57 PM METER AND SERVICE LINE INSPECTOR) Color, UA Yellow [facility] Clarity, UA Clear [facility] Specific Cougar, UA 1.025 1.001 - 1.035 [facility] pH, UA 5.5 5.0 - 8.0 [facility] Protein, UA 20 mg/dL (A) Negative [facility] Glucose, UA Negative Negative [facility] Ketones, UA Negative Negative [facility] Bilirubin, UA Negative Negative [facility] Blood, UA Small (A) Negative [facility] Nitrite, UA Negative Negative [facility] Leukocytes, UA Negative Negative [facility] Urobilinogen, UA 4.0 (H) 0.2 - 1.0 mg/dL [facility] RBC, UA 10 /HPF [facility] WBC, UA 3 /HPF [facility] Mucus Occasional [facility] Squam Epithel, UA <1 /HPF [facility] Hyaline Casts, UA 5 /LPF [facility] Casts 1 /LPF [facility] Specimen Source [facility] Specimen Urine Performing Organization Address City/[facility] Phone Number [address] [address] [phone] CENTER POC-Glucose meter (07/11/2018 12:28 PM METER AND SERVICE LINE INSPECTOR)Only the most recent of23 resultswithin the time period is included. POC-Glucose Meter 151 (H)Comment: TESTED AT 70 - 110 mg/dL [address] [address] Specimen Blood Performing Organization Address City/[facility] Phone Number [address] [place] [address] CENTER XR chest 1 view portable / bedside (07/11/2018 5:05 AM METER AND SERVICE LINE INSPECTOR)Only the most recent of7 resultswithin the time period is included. Specimen Narrative Performed At FINAL REPORT GE RIS RAD, CHEST, 1 VIEW, NON DEPT INDICATION: [...] MD Report Verified Date/Time:07/11/2018 08:10:57 Reading Location: [address] Neuro Reading Room Procedure Note Interface, External Ris In - 07/11/2018 8:13 AM METER AND SERVICE LINE INSPECTOR FINAL REPORT RAD, CHEST, 1 VIEW, NON [...] Report Verified Date/Time: 07/11/2018 08:10:57 Reading Location: [address] Neuro Reading Room Performing Organization Address City/State/Zipcode Phone Number [facility] CBC (Hemogram only) (07/11/2018 4:35 AM METER AND SERVICE LINE INSPECTOR)Only the most recent of3 resultswithin the time period is included. WBC 8.7 3.5 - 10.5 K/L [facility] RBC 3.32 (L) 4.63 - 6.08 M/L [facility] Hemoglobin 10.7 (L) 13.7 - 17.5 GM/DL [facility] Hematocrit 33.0 (L) 40.1 - 51.0 % [facility] MCV 99.4 (H) 79.0 - 92.2 fL [facility] MCH 32.2 25.7 - 32.2 pg [facility] MCHC 32.4 32.3 - 36.5 GM/DL [facility] RDW 12.2 11.6 - 14.4 % [facility] Platelets 179 150 - 450 K/CU MM [facility] MPV 10.0 9.4 - 12.4 fL [facility] nRBC 0 0 - 0 /100 WBC [facility] Specimen Blood Performing Organization Address City/State/Zipcode Phone Number [address] [address] CENTER Magnesium (07/11/2018 4:35 AM METER AND SERVICE LINE INSPECTOR)Only the most recent of12 resultswithin the time period is included. Magnesium 2.1 1.6 - 2.6 mg/dL [facility] Specimen Blood Performing Organization Address City/State/Zipcode Phone Number [address] [address] CENTER Basic Metabolic Panel (07/11/2018 4:35 AM METER AND SERVICE LINE INSPECTOR)Only the most recent of8 resultswithin the time period is included. Sodium 140 136 - 145 meq/L [facility] Potassium 3.9 3.5 - 5.1 meq/L [facility] Chloride 103 98 - 107 meq/L [facility] CO2 26 22 - 29 meq/L [facility] BUN 17 7 - 21 mg/dL [facility] Creatinine 0.98 0.57 - 1.25 mg/dL [facility] Glucose 148 (H) 70 - 105 mg/dL [facility] Calcium 9.7 8.4 - 10.2 mg/dL [facility] EGFR 80Comment: ESTIMATED GFR IS mL/min/1.73 sq m [facility] NOT ACCURATE [facility] CLEARANCE IN PREDICTING GLOMERULAR FILTRATION RATE. ESTIMATED GFR IS NOT APPLICABLE FOR DIALYSIS PATIENTS. Specimen Blood Performing Organization Address City/State/Zipcode Phone Number [address] [address] CENTER B-type Natriuretic Factor (BNP) (07/10/2018 1:38 PM METER AND SERVICE LINE INSPECTOR)Only the most recent of2 resultswithin the time period is included. BNP 263 (H) 0 - 100 pg/mL [facility] Specimen Blood Performing Organization Address [facility] Phone Number [address] [address] [phone] [place] ECG 12 lead (07/10/2018 12:43 PM METER AND SERVICE LINE INSPECTOR)Only the most recent of6 resultswithin the time period is included. Specimen Narrative Performed At Ventricular Rate 63 BPM GE MUSE Atrial Rate 63 BPM P-R Interval 146 ms QRS Duration 102 ms Q-T Interval 420 ms QTC Calculation(Bazett) 429 ms P Minto 37 degrees R Minto -4 degrees T Minto 45 degrees Sinus rhythm with occasional Premature ventricular complexes Incomplete right bundle branch block Septal infarct (cited on or before 10-JUL-2018) Abnormal ECG When compared with ECG of 08-JUL-2018 07:56, Premature ventricular complexes are now Present Questionable change in initial forces of Septal leads Confirmed by MD Ankur, Alessandro ([id number]) on 07/10/2018 1:58:42 PM Procedure Note Interface, External Ris In - 07/10/2018 1:58 PM METER AND SERVICE LINE INSPECTOR Ventricular Rate 63 BPM Atrial Rate 63 BPM P-R Interval 146 ms QRS Duration 102 ms Q-T Interval 420 ms QTC Calculation(Bazett) 429 ms P Minto 37 degrees R Minto -4 degrees T Minto 45 degrees Sinus rhythm with occasional Premature ventricular complexes Incomplete right bundle branch block Septal infarct (cited on or before 10-JUL-2018) Abnormal ECG When compared with ECG of 08-JUL-2018 07:56, Premature ventricular complexes are now Present Questionable change in initial forces of Septal leads Confirmed by MD Ankur, [facility] ([id number]) on 07/10/2018 1:58:42 PM Performing Organization Address [facility] Phone Number MUSE Potassium (07/09/2018 12:15 PM METER AND SERVICE LINE INSPECTOR)Only the most recent of4 resultswithin the time period is included. Potassium 4.0 3.5 - 5.1 meq/L [facility] Specimen Blood Narrative Performed At Check Serum Magnesium level 2 hours after IV [facility] magnesium replacement. Check Serum Phosphorus level 4 hours after IV phosphorus replacement or 8 hours after PO replacement completed. Every 8 hours PRN for Creatinine greater than or equal to 2 mg/dL. Performing Organization Address [facility] Phone Number [address] [address] [phone] [place] Phosphorus (07/09/2018 12:15 PM METER AND SERVICE LINE INSPECTOR)Only the most recent of6 resultswithin the time period is included. Phosphorus 1.6 (L) 2.3 - 4.7 mg/dL [facility] Specimen Blood Narrative Performed At Check Serum Magnesium level 2 hours after IV [facility] magnesium replacement. Check Serum Phosphorus level 4 hours after IV phosphorus replacement or 8 hours after PO replacement completed. Every 8 hours PRN for Creatinine greater than or equal to 2 mg/dL. Performing Organization Address [facility] Phone Number [address] [address] [place] ECHOCARDIOGRAM REPORT - SCAN (07/08/2018 7:20 PM METER AND SERVICE LINE INSPECTOR) Narrative Performed At Calcium, Ionized (07/08/2018 5:54 PM METER AND SERVICE LINE INSPECTOR)Only the most recent of3 resultswithin the time period is included. Calcium, Ion 1.13 1.12 - 1.27 mmol/L [facility] pH, Blood 7.51 [facility] Specimen Blood Narrative Performed At Check serum Ionized Calcium level after 4 [facility] hours after IV Calcium replacement. Performing Organization Address [facility]/Zipcode Phone Number [facility] [address] [place] [phone] [place] Blood gas, arterial (07/08/2018 8:21 AM METER AND SERVICE LINE INSPECTOR)Only the most recent of8 resultswithin the time period is included. pH, Arterial 7.48 (H) 7.35 - 7.45 [facility] pCO2, Arterial 40 35 - 45 mmHg [facility] pO2, Arterial 92 (H) 80 - 90 mmHg [facility] O2 Sat, Arterial 97.5 (H) 96.0 - 97.0 % [facility] HCO3, Arterial 29 21 - 29 mmol/L [facility] Base Excess, Arterial 4.8 (H) -2.0 - 3.0 mmol/L [facility] Patient Temperature 37.0 C [facility] FIO2 60.0 % [facility] Specimen Blood, Arterial Performing Organization Address City/[facility] Phone Number [address] [address] [phone] CENTER CBC with platelet count + automated diff (07/08/2018 5:53 AM METER AND SERVICE LINE INSPECTOR)Only the most recent of8 resultswithin the time period is included. WBC 8.3 3.5 - 10.5 K/L [facility] RBC 3.15 (L) 4.63 - 6.08 M/L [facility] Hemoglobin 10.4 (L) 13.7 - 17.5 GM/DL [facility] Hematocrit 31.8 (L) 40.1 - 51.0 % [facility] MCV 101.0 (H) 79.0 - 92.2 fL [facility] MCH 33.0 (H) 25.7 - 32.2 pg [facility] MCHC 32.7 32.3 - 36.5 GM/DL [facility] RDW 12.8 11.6 - 14.4 % [facility] Platelets 94 (L) 150 - 450 K/CU MM [facility] MPV 10.7 9.4 - 12.4 fL [facility] nRBC 0 0 - 0 /100 WBC [facility] % Neutros 68 % [facility] % Lymphs 15 % [facility] % Monos 16 % [facility] % Eos 1 % [facility] % Baso 0 % [facility] # Neutros 5.62 (H) 1.78 - 5.38 K/L [facility] # Lymphs 1.26 (L) 1.32 - 3.57 K/L [facility] # Monos 1.31 (H) 0.30 - 0.82 K/L [facility] # Eos 0.04 0.04 - 0.54 K/L [facility] # Baso 0.02 0.01 - 0.08 K/L [facility] Immature 1 0 - 1 % [facility] Specimen Blood Performing Organization Address City/State/Zipcode Phone Number [facility] [address] [place] [address] [phone] CENTER Insert Arterial Line (J-wire) (07/07/2018 8:23 PM METER AND SERVICE LINE INSPECTOR) Narrative Performed At Gallo Lombardi NP 07/07/20188:25 [...] to verify the correct patient, procedure, equipment, patient support associate and site/side marked as required. Preparation: Patient was prepped and draped in the usual sterile fashion. Indications: multiple ABGs, respiratory failure and hemodynamic monitoring Location: left radial Sedation: Patient sedated: no Yaya's test normal: yes Needle gauge: 20 Seldinger technique: Seldinger technique used Number of attempts: 1 Post-procedure: dressing applied Post-procedure CMS: normal Oxygen saturation, measured (07/07/2018 7:25 PM METER AND SERVICE LINE INSPECTOR)Only the most recent of2 resultswithin the time period is included. O2 Saturation (Measured) 68.6 % [facility] Specimen Blood Narrative Performed At For occult hypoperfusion [facility] Performing Organization Address City/State/Zipcode Phone Number [place] [id number] [place] [address] [phone] CENTER 2D Echo W/Doppler(CW/PW/Color) (07/07/2018 6:09 PM METER AND SERVICE LINE INSPECTOR) Ejection Fraction [facility] Specimen Narrative Performed At Transthoracic Echocardiography Report (TTE) [facility] Demographics Patient Name DRAKE VALLEJO Date of Study 07/07/2018 [id number] GenderMale Visit Number [id number] RaceUnknown [id number] Room Number C831 Number Date of Birth1965 Referring Physician Age53 year(s) Application Security Specialist Howie Guzman MD Fellow Janeth Perry MD [...] External Ris In - 07/08/2018 6:55 PM METER AND SERVICE LINE INSPECTOR Transthoracic Echocardiography Report (TTE) Demographics Patient Name DRAKE VALLEJO Date of Study 07/07/2018 Gender Male Visit Number [id number] Race Unknown Room Number C831 Number Date of 1965 Referring Physician Age 53 year(s) Application Security Specialist Howie Fowler Interpreting Lissette Guzman MD Fellow Janeth Perry MD Procedure [...] City/State/Zipcode Phone Number [facility] TRANSFUS[facility] SERVICE REPORT - SCAN (07/07/2018 5:53 PM METER AND SERVICE LINE INSPECTOR) Narrative Performed At Lactic acid, venous, whole blood (07/07/2018 4:20 PM METER AND SERVICE LINE INSPECTOR) Lactate, Venous 1.0 0.5 - 2.2 mmol/L [facility] Specimen Blood Performing Organization Address City/State/Zipcode Phone Number [facility] [address] [place] [phone] [place] Blood gas, venous (07/07/2018 4:20 PM METER AND SERVICE LINE INSPECTOR)Only the most recent of2 resultswithin the time period is included. pH, Conrad 7.39 7.32 - 7.42 [facility] pCO2, Conrad 44 41 - 51 mmHg [facility] pO2, Conrad 29 25 - 40 mmHg [facility] O2 Sat, Conrad 59.6 40.0 - 70.0 % [facility] HCO3, Conrad 26 21 - 29 mmol/L [facility] Base Excess, Conrad 0.6 -2.0 - 3.0 mmol/L [facility] Patient Temperature 35.3 C [facility] FIO2 60.0 % [facility] Specimen Blood Performing Organization Address City/State/Zipcode Phone Number [address] [address] CENTER Manual Differential (07/07/2018 12:28 PM METER AND SERVICE LINE INSPECTOR)Only the most recent of2 resultswithin the time period is included. % Neutros 80 % [facility] % Lymphs 9 % [facility] % Monos 8 % [facility] % Bands 3 0 - 10 % [facility] # Neutros 10.72 (H) 1.78 - 5.38 K/ul [facility] # Lymphs 1.21 (L) 1.32 - 3.57 K/ul [facility] # Monos 1.07 (H) 0.30 - 0.82 K/uL [facility] # Bands 0.40 0.00 - 0.80 K/uL [facility] Total Counted 100 [facility] RBC Morphology Normal [facility] WBC Morphology Normal [facility] Platelet Morphology Normal [facility] Artifact Present [facility] Platelet Conc Decreased [facility] Specimen Blood Narrative Performed At Received comment: [facility] User comments: Slide comments: Performing Organization Address City/[facility] Phone Number [address] [address] [place] Potassium-Stat Lab (07/07/2018 10:36 AM METER AND SERVICE LINE INSPECTOR)Only the most recent of4 resultswithin the time period is included. Potassium 4.2 3.6 - 5.5 meq/L [facility] Specimen Blood, Arterial Performing Organization Address City/[facility] Phone Number [address] [address] [place] Sodium Na-Stat Lab (07/07/2018 10:36 AM METER AND SERVICE LINE INSPECTOR)Only the most recent of4 resultswithin the time period is included. Sodium 138 135 - 148 meq/L [facility] Specimen Blood, Arterial Performing Organization Address City/[facility] Phone Number [address] [address] [phone] [place] Glucose-Stat Lab (07/07/2018 10:36 AM METER AND SERVICE LINE INSPECTOR)Only the most recent of4 resultswithin the time period is included. Glucose 194 (H) 70 - 110 mg/dL [facility] Specimen Blood, Arterial Performing Organization Address [facility] Phone Number [address] [address] [phone] [place] HGB/HCT (H&H)-Stat Lab (07/07/2018 10:36 AM METER AND SERVICE LINE INSPECTOR)Only the most recent of4 resultswithin the time period is included. Hemoglobin 12.5 (L) 13.0 - 16.8 g/dL [facility] Hematocrit 37.0 (L) 40.0 - 50.0 % [facility] Specimen Blood, Arterial Performing Organization Address [facility] Phone Number [address] [address] CENTER Prepare RBC (07/06/2018 4:52 PM METER AND SERVICE LINE INSPECTOR) CROSSMATCH COMPATIBLE SAFETRACE TX Unit ABO A Pos SAFETRACE TX UNIT NUMBER [id number] SAFETRACE TX Status RETURNED FROM ISSUE SAFETRACE TX Blood Bank Product RED BLOOD CELLS SAFETRACE TX PRODUCT CODE [id number] SAFETRACE TX CROSSMATCH COMPATIBLE SAFETRACE TX Unit ABO A Pos SAFETRACE TX UNIT NUMBER [id number] SAFETRACE TX Status RETURNED FROM ISSUE SAFETRACE TX Blood Bank Product RED BLOOD CELLS SAFETRACE TX PRODUCT CODE [id number] SAFETRACE TX CROSSMATCH COMPATIBLE SAFETRACE TX Unit ABO A Pos SAFETRACE TX UNIT NUMBER [id number] SAFETRACE TX Status RETURNED FROM ISSUE SAFETRACE TX Blood Bank Product RED BLOOD CELLS SAFETRACE TX PRODUCT CODE [id number] SAFETRACE TX CROSSMATCH COMPATIBLE SAFETRACE TX Unit ABO A Pos SAFETRACE TX UNIT NUMBER [id number] SAFETRACE TX Status RETURNED FROM ISSUE SAFETRACE TX Blood Bank Product RED BLOOD CELLS SAFETRACE TX PRODUCT CODE [id number] SAFETRACE TX Performing Organization Address [facility] Phone Number SAFETRACE [place] Lactic acid, arterial, whole blood (07/06/2018 3:54 PM METER AND SERVICE LINE INSPECTOR) Lactate, Art 1.2 0.5 - 2.2 mmol/L [facility] Specimen Blood, Arterial Performing Organization Address City/[facility]/Zipcode Phone Number [address] [address] CENTER PT/aPTT (07/06/2018 3:51 PM METER AND SERVICE LINE INSPECTOR)Only the most recent of2 resultswithin the time period is included. Protime 15.4 (H) 11.7 - 14.7 seconds [facility] INR 1.2 <=5.9 [facility] PTT 28.7 22.5 - 36.0 seconds [facility] Specimen Blood Narrative Performed At RECOMMENDED COUMADIN/WARFARIN INR THERAPY [facility] RANGES STANDARD DOSE: 2.0 - 3.0 Includes: PROPHYLAXIS for venous thrombosis, systemic embolization; TREATMENT for venous thrombosis and/or pulmonary embolus. HIGH RISK: Target INR is 2.5-3.5 for patients with mechanical heart valves. Performing Organization Address [facility] Phone Number [address] [address] CENTER Prothrombin time/INR (07/06/2018 3:51 PM METER AND SERVICE LINE INSPECTOR)Only the most recent of3 resultswithin the time period is included. Protime 15.4 (H) 11.7 - 14.7 seconds [facility] INR 1.2 <=5.9 [facility] Specimen Blood Narrative Performed At RECOMMENDED COUMADIN/WARFARIN INR THERAPY [facility] RANGES STANDARD DOSE: 2.0 - 3.0 Includes: PROPHYLAXIS for venous thrombosis, systemic embolization; TREATMENT for venous thrombosis and/or pulmonary embolus. HIGH RISK: Target INR is 2.5-3.5 for patients with mechanical heart valves. Performing Organization Address City/[facility] Phone Number [address] [address] [phone] CENTER Fibrinogen (07/06/2018 3:51 PM METER AND SERVICE LINE INSPECTOR)Only the most recent of2 resultswithin the time period is included. Fibrinogen 282 225 - 434 mg/dl [facility] Specimen Blood Performing Organization Address [facility] Phone Number [address] [address] CENTER Sodium (07/06/2018 3:48 PM METER AND SERVICE LINE INSPECTOR) Sodium 137 136 - 145 meq/L [facility] Specimen Blood Performing Organization Address City/[facility] Phone Number [address] [address] [phone] [place] Glucose (07/06/2018 3:48 PM METER AND SERVICE LINE INSPECTOR) Glucose 193 (H) 70 - 105 mg/dL [facility] Specimen Blood Performing Organization Address City/[facility] Phone Number [address] [address] [phone] [place] Platelet count (07/06/2018 2:02 PM METER AND SERVICE LINE INSPECTOR) Platelets 125 (L) 150 - 450 K/CU MM [facility] Specimen Blood Performing Organization Address [facility] Phone Number [address] [address] [place] Thromboelastograph (TEG) (07/06/2018 1:55 PM METER AND SERVICE LINE INSPECTOR) TEG Activated Clotting Time 3.8 (L) 4.0 - 7.0 minutes [facility] TEG Fibrinogen Activity 64.5 61.0 - 73.0 degrees [facility] TEG Platelet Aggregation 57.2 55.0 - 65.0 MM [facility] TEG Fibrinolysis 16.0 (H) 0.0 - 5.0 % [facility] TEG-H Activated Clotting Time 4.2 4.0 - 7.0 minutes [facility] TEG-H Fibrinogen Activity 65.6 61.0 - 73.0 degrees [facility] TEG-H Platelet Aggregation 53.0 (L) 55.0 - 65.0 MM [facility] TEG-H Fibrinolysis 0.0 0.0 - 5.0 % [facility] Specimen Blood Performing Organization Address City/[facility] Phone Number [address] [phone] [id number] CENTER POC ACTIVATED CLOTTING TIME (07/06/2018 1:55 PM METER AND SERVICE LINE INSPECTOR)Only the most recent of4 resultswithin the time period is included. Activated Clotting Time 103Comment: TESTED AT sec [facility] [address] [place] [id number] Specimen Blood Performing Organization Address [facility] Phone Number [address] [address] CENTER aPTT (07/06/2018 1:53 PM METER AND SERVICE LINE INSPECTOR)Only the most recent of6 resultswithin the time period is included. PTT 24.4 22.5 - 36.0 seconds [facility] Specimen Blood Performing Organization Address [facility] Phone Number [address] [address] [phone] CENTER Type and screen, automated (07/06/2018 12:32 AM METER AND SERVICE LINE INSPECTOR) Ab Scrn NEGATIVEComment: Echo 1 [facility] [place] milk plasma [facility] Specimen Blood Performing Organization Address [facility] Phone Number [address] [address] ABORH, manual (07/06/2018 12:32 AM METER AND SERVICE LINE INSPECTOR) ABO Grouping AB [facility] Rh Factor POS [facility] Specimen Blood Performing Organization Address [facility] Facility[facility] Phone Number [address] [address] Comprehensive metabolic panel (07/06/2018 12:32 AM METER AND SERVICE LINE INSPECTOR) Protein, Total 8.0Comment: Specimen 6.0 - 8.3 gm/dL [facility] slightly hemolyzed [facility] Albumin 4.1Comment: Specimen 3.5 - 5.0 g/dL [facility] slightly hemolyzed [facility] Alkaline Phosphatase 92 40 - 150 U/L [facility] Total Bilirubin 0.5Comment: Specimen 0.2 - 1.2 mg/dL [facility] slightly hemolyzed [facility] Sodium 137 136 - 145 meq/L [facility] Potassium 3.9Comment: Specimen 3.5 - 5.1 meq/L [facility] slightly hemolyzed [facility] Chloride 101 98 - 107 meq/L [facility] CO2 19 (L) 22 - 29 meq/L [facility] BUN 25 (H) 7 - 21 mg/dL [facility] Creatinine 1.44 (H)Comment: 0.57 - 1.25 mg/dL [facility] Specimen [facility] hemolyzed Glucose 193 (H) 70 - 105 mg/dL [facility] Calcium 9.4 8.4 - 10.2 mg/dL [facility] AST 58 (H)Comment: Specimen 5 - 34 U/L [facility] slightly hemolyzed [facility] ALT 63 (H)Comment: Specimen 6 - 55 U/L [facility] slightly hemolyzed [facility] EGFR 51Comment: ESTIMATED GFR mL/min/1.73 sq m [facility] IS NOT ACCURATE [facility] CREATININE CLEARANCE IN PREDICTING GLOMERULAR FILTRATION RATE. ESTIMATED GFR IS NOT APPLICABLE FOR DIALYSIS PATIENTS. Specimen Blood Narrative Performed At Specimen markedly lipemic [facility] Performing Organization Address City/State/Zipcode Phone Number [facility] [address] [place] [address] CENTER Platelet Aggregation: Function Screen (07/05/2018 2:00 AM METER AND SERVICE LINE INSPECTOR) Weak ADP 84 60 - 91 % [facility] Plt. Function Screen 60-100% indicates [facility] Interpretation normal platelet [facility] function Pathologist: Cindy Velasquez [facility] (electronic [facility] signature) Platelets 175 150 - 450 K/CU MM [facility] Specimen Blood Narrative Performed At Platelet Function Screen results may be [facility] falsely low with platelet counts <100,000/cu mm. Performing Organization Address City/State/[facility] Phone Number [address] [address] [phone] CENTER TSH/Free T4 If Indicated (07/04/2018 6:51 PM METER AND SERVICE LINE INSPECTOR) TSH 4.44 0.35 - 4.94 uIU/mL [facility] Specimen Blood Performing Organization Address [facility] Phone Number [address] [address] [phone] CENTER Hemoglobin A1c (07/04/2018 6:51 PM METER AND SERVICE LINE INSPECTOR) Hemoglobin A1C 7.0 (H) 4.3 - 6.1 % [facility] Specimen Blood Performing Organization Address [facility] Phone Number [address] [address] CENTER Hepatic function panel (07/04/2018 6:51 PM METER AND SERVICE LINE INSPECTOR) Protein, Total 7.5 6.0 - 8.3 gm/dL [facility] Albumin 4.3 3.5 - 5.0 g/dL [facility] Total Bilirubin 0.9 0.2 - 1.2 mg/dL [facility] Bilirubin, Direct 0.3 0.1 - 0.5 mg/dL [facility] Alkaline Phosphatase 89 40 - 150 U/L [facility] AST 76 (H) 5 - 34 U/L [facility] ALT 72 (H) 6 - 55 U/L [facility] Specimen Blood Performing Organization Address City/[facility] Phone Number [address] [place] [address] [phone] [place] Lipid panel (07/04/2018 6:51 PM METER AND SERVICE LINE INSPECTOR) Triglycerides 458 mg/dL [facility] Cholesterol 285 mg/dL [facility] HDL 42 mg/dL [facility] Specimen Blood Narrative Performed At Calculated LDL not valid if triglyceride >400 [facility] mg/dL Triglyceride Reference Range: Low Risk <150 [id number] High Risk 200-499 Very High Risk>=500 Cholesterol Reference Range: Low Risk <200 [id number] High Risk>240 HDL Cholesterol Reference Range: Low Risk >=60 High Risk <40 LDL Cholesterol Reference Range: Optimal<100 Near [id number] Very High >=190 Performing Organization Address City/State/Zipcode Phone Number [address] [phone] [place] after 01/09/2018 Advance Directives For more information, please contact:[address] [phone] Code Status Date Activated Date Inactivated Comments [...]
--- OUTSIDE RECORDS SUMMARY | 2019-01-10 09:13 | XMS REPORT ---
:1965 [facility] Address [address] [place] [address] Care Team Providers Name Role Phone DONALDO [...] Value Reference Range Comments COLOR (BEAKER) (test vatp=762) Yellow CLARITY (BEAKER) (test frjt=508) Clear SPECIFIC GRAVITY UA (BEAKER) (test nrhq=388) 1.025 1.001-1.035 PH UA (BEAKER) (test fiun=504) 5.5 5.0-8.0 PROTEIN UA (BEAKER) (test hujl=647) 20 mg/dL Negative GLUCOSE UA (BEAKER) (test pltt=705) Negative Negative KETONES UA (BEAKER) (test yoha=957) Negative Negative BILIRUBIN UA (BEAKER) (test juso=450) Negative Negative BLOOD UA (BEAKER) (test fnom=151) Small Negative NITRITE UA (BEAKER) (test lokn=958) Negative Negative LEUKOCYTE ESTERASE UA (BEAKER) (test ioba=122) Negative Negative UROBILINOGEN UA (BEAKER) (test cdyh=967) 4.0 mg/dL 0.2-1.0 RBC UA (BEAKER) (test epxj=403) 10 /HPF WBC UA (BEAKER) (test zmbl=617) 3 /HPF MUCUS (BEAKER) (test imce=3538) Occasional SQUAMOUS EPITHELIAL (BEAKER) (test tzho=149) < /HPF HYALINE CASTS (BEAKER) (test lvyz=424) 5 /LPF CASTS (BEAKER) (test wxbk=2808) 1 /LPF SOURCE(BEAKER) (test yudl=7124) POCT-GLUCOSE [id number] 12:36:00 Test Item Value Reference Range Comments POC-GLUCOSE METER (BEAKER) 151 mg/dL 70-[address] [facility] [address] [facility] (test walp=3008) [facility] [address] POCT-GLUCOSE [id number] 08:14:00 Test Item Value Reference Range Comments POC-GLUCOSE METER (BEAKER) 159 mg/dL 70-110 TESTED AT [place] [id number] [facility] (test pnpi=8614) [facility] [address] RAD, CHEST, 1 VIEW, NON [id number] 08:10:00Reason for exam:->eval pulmonary congestionShould this be [...] MDReport Verified Date/Time: 07/11/2018 08:10:57 Reading Location: [address] Neuro Reading Room [id number] 05:02:00 Test Item Value Reference Range Comments MAGNESIUM (BEAKER) (test zcku=240) 2.1 mg/dL 1.6-2.6 BASIC METABOLIC [id number] 05:02:00 Test Item Value Reference Range Comments SODIUM (BEAKER) (test 140 meq/L 136-145 rexa=523) POTASSIUM (BEAKER) (test 3.9 meq/L 3.5-5.1 dlnv=233) CHLORIDE (BEAKER) (test 103 meq/L 98-107 vjqe=088) CO2 (BEAKER) (test 26 meq/L 22-29 fxeh=788) BLOOD UREA NITROGEN 17 mg/dL 7-21 (BEAKER) (test piqz=193) CREATININE (BEAKER) (test 0.98 mg/dL 0.57-1.25 gxql=905) GLUCOSE RANDOM (BEAKER) 148 mg/dL 70-105 (test udbj=897) CALCIUM (BEAKER) (test 9.7 mg/dL 8.4-10.2 lqig=103) EGFR (BEAKER) (test 80 mL/min/1.73 sq m ESTIMATED GFR IS NOT gokx=9700) ACCURATE CREATININE CLEARANCE IN PREDICTING GLOMERULAR FILTRATION RATE. ESTIMATED GFR IS NOT APPLICABLE FOR DIALYSIS PATIENTS. CBC (HEMOGRAM ONLY)2018-07-11 04:43:00 Test Item Value Reference Range Comments WHITE BLOOD CELL COUNT (BEAKER) (test nayy=566) 8.7 K/ L 3.5-10.5 RED BLOOD CELL COUNT (BEAKER) (test rsfc=590) 3.32 M/ L 4.63-6.08 HEMOGLOBIN (BEAKER) (test scos=636) 10.7 GM/DL 13.7-17.5 HEMATOCRIT (BEAKER) (test mkfv=677) 33.0 % 40.1-51.0 MEAN CORPUSCULAR VOLUME (BEAKER) (test ftpq=232) 99.4 fL 79.0-92.2 MEAN CORPUSCULAR HEMOGLOBIN (BEAKER) (test 32.2 pg 25.7-32.2 kynz=192) MEAN CORPUSCULAR HEMOGLOBIN CONC (BEAKER) (test 32.4 GM/DL 32.3-36.5 twca=889) RED CELL DISTRIBUTION WIDTH (BEAKER) (test 12.2 % 11.6-14.4 hbvm=154) PLATELET COUNT (BEAKER) (test ypht=569) 179 K/CU MM 150-450 MEAN PLATELET VOLUME (BEAKER) (test naab=342) 10.0 fL 9.4-12.4 NUCLEATED RED BLOOD CELLS (BEAKER) (test 0 /100 WBC 0-0 dbry=543) POCT-GLUCOSE [id number] 21:35:00 Test Item Value Reference Range Comments POC-GLUCOSE METER (BEAKER) 172 mg/dL 70-[address] [facility] [address] [facility] (test gerz=9337) [facility] [address] POCT-GLUCOSE [id number] 17:50:00 Test Item Value Reference Range Comments POC-GLUCOSE METER (BEAKER) 142 mg/dL 70-110 TESTED AT [address] (test hwsi=2768) [facility] [address] B-TYPE NATRIURETIC FACTOR (BNP)2018-07-10 14:23:00 Test Item Value Reference Range Comments B-TYPE NATRIURETIC PEPTIDE (BEAKER) (test 263 pg/mL 0-100 ljzx=318) POCT-GLUCOSE [id number] 12:30:00 Test Item Value Reference Range Comments POC-GLUCOSE METER (BEAKER) 162 mg/dL 70-110 TESTED AT [address] (test ayiy=3976) [place] [id number] POCT-GLUCOSE [id number] 08:28:00 Test Item Value Reference Range Comments POC-GLUCOSE METER (BEAKER) 248 mg/dL 70-110 TESTED AT [address] (test ywcv=4333) [facility] [address] RAD, CHEST, 1 VIEW, NON [id number] 07:32:00Reason for exam:->eval pulmonary congestionShould this be [...] MDReport Verified Date/Time: 07/10/2018 07:32:04 Reading Location: [address] Neuro Reading Room [id number] 06: 04:00 Test Item Value Reference Range Comments MAGNESIUM (BEAKER) (test dwza=715) 2.3 mg/dL 1.6-2.6 BASIC METABOLIC [id number] 06:04:00 Test Item Value Reference Range Comments SODIUM (BEAKER) (test 143 meq/L 136-145 mowa=522) POTASSIUM (BEAKER) (test 4.0 meq/L 3.5-5.1 etfh=396) CHLORIDE (BEAKER) (test 105 meq/L 98-107 xewk=176) CO2 (BEAKER) (test 29 meq/L 22-29 uncl=316) BLOOD UREA NITROGEN 16 mg/dL 7-21 (BEAKER) (test qvyf=529) CREATININE (BEAKER) (test 1.07 mg/dL 0.57-1.25 icqv=231) GLUCOSE RANDOM (BEAKER) 133 mg/dL 70-105 (test lfbc=073) CALCIUM (BEAKER) (test 9.7 mg/dL 8.4-10.2 fxgr=795) EGFR (BEAKER) (test 72 mL/min/1.73 sq m ESTIMATED GFR IS NOT mzbb=3310) ACCURATE CREATININE CLEARANCE IN PREDICTING GLOMERULAR FILTRATION RATE. ESTIMATED GFR IS NOT APPLICABLE FOR DIALYSIS PATIENTS. CBC (HEMOGRAM ONLY)2018-07-10 05:59:00 Test Item Value Reference Range Comments WHITE BLOOD CELL COUNT (BEAKER) (test yeys=875) 7.1 K/ L 3.5-10.5 RED BLOOD CELL COUNT (BEAKER) (test evap=641) 3.50 M/ L 4.63-6.08 HEMOGLOBIN (BEAKER) (test etci=460) 11.6 GM/DL 13.7-17.5 HEMATOCRIT (BEAKER) (test xaqx=201) 35.7 % 40.1-51.0 MEAN CORPUSCULAR VOLUME (BEAKER) (test epei=488) 102.0 fL 79.0-92.2 MEAN CORPUSCULAR HEMOGLOBIN (BEAKER) (test 33.1 pg 25.7-32.2 oiyp=693) MEAN CORPUSCULAR HEMOGLOBIN CONC (BEAKER) (test 32.5 GM/DL 32.3-36.5 cozu=217) RED CELL DISTRIBUTION WIDTH (BEAKER) (test 12.4 % 11.6-14.4 yobu=403) PLATELET COUNT (BEAKER) (test zyqf=428) 173 K/CU MM 150-450 MEAN PLATELET VOLUME (BEAKER) (test oilb=226) 10.7 fL 9.4-12.4 NUCLEATED RED BLOOD CELLS (BEAKER) (test 0 /100 WBC 0-0 mpmw=167) POCT-GLUCOSE [id number] 21:23:00 Test Item Value Reference Range Comments POC-GLUCOSE METER (BEAKER) 166 mg/dL 70-110 TESTED AT [address] (test xaxj=8131) [place] [address] [id number] 12:50:00 Test Item Value Reference Range Comments POTASSIUM (BEAKER) (test lwtn=717) 4.0 meq/L 3.5-5.1 Check Serum Magnesium level 2 hours after IV magnesium replacement.Check Serum Phosphorus level 4 hours after IV phosphorus replacement or 8 hours after PO replacement completed.Every 8 hours PRN for Creatinine greater than or equal to 2 mg/dL.[id number] 12:50:00 Test Item Value Reference Range Comments MAGNESIUM (BEAKER) (test hvvu=415) 2.3 mg/dL 1.6-2.6 Check Serum Magnesium level 2 hours after IV magnesium replacement.Check Serum Phosphorus level 4 hours after IV phosphorus replacement or 8 hours after PO replacement completed.Every 8 hours PRN for Creatinine greater than or equal to 2 mg/dL.[id number] 12:50:00 Test Item Value Reference Range Comments PHOSPHORUS (BEAKER) (test fbbf=150) 1.6 mg/dL 2.3-4.7 Check Serum Magnesium level 2 hours after IV magnesium replacement.Check Serum Phosphorus level 4 hours after IV phosphorus replacement or 8 hours after PO replacement completed.Every 8 hours PRN for Creatinine greater than or equal to 2 mg/dL.POCT-GLUCOSE [id number] 12:19:00 Test Item Value Reference Range Comments POC-GLUCOSE METER (BEAKER) 255 mg/dL 70-110 TESTED AT [address] (test posm=5625) [place] [address] RAD, CHEST, 1 VIEW, NON [id number] 09:46:00while patient is intubated or has chest [...] MDReportVerified Date/ Time: 07/09/2018 09:46:04 Reading Location: [address] Transitional Reading Room POCT- GLUCOSE [id number] 08:01:00 Test Item Value Reference Range Comments POC-GLUCOSE METER (BEAKER) 173 mg/dL 70-[address] [facility] [address] [facility] (test capq=8576) [facility] [address] [id number] 04:58:00 Test Item Value Reference Range Comments PHOSPHORUS (BEAKER) (test chmy=823) 2.3 mg/dL 2.3-4.7 Check Serum Phosphorus level 4 hours after IV phosphorus replacement or 8 hours after PO replacementcompleted.[id number] 04:58:00 Test Item Value Reference Range Comments MAGNESIUM (BEAKER) (test owcb=952) 2.3 mg/dL 1.6-2.6 Check Serum Phosphorus level 4 hours after IV phosphorus replacement or 8 hours after PO replacementcompleted.BASIC METABOLIC [id number] 04:58:00 Test Item Value Reference Range Comments SODIUM (BEAKER) (test 143 meq/L 136-145 hvll=658) POTASSIUM (BEAKER) (test 4.0 meq/L 3.5-5.1 gvid=252) CHLORIDE (BEAKER) (test 109 meq/L 98-107 swlw=259) CO2 (BEAKER) (test 27 meq/L 22-29 obim=198) BLOOD UREA NITROGEN 12 mg/dL 7-21 (BEAKER) (test mjbu=594) CREATININE (BEAKER) (test 0.85 mg/dL 0.57-1.25 xgrr=085) GLUCOSE RANDOM (BEAKER) 146 mg/dL 70-105 (test uxrt=132) CALCIUM (BEAKER) (test 8.8 mg/dL 8.4-10.2 nwhp=812) EGFR (BEAKER) (test 94 mL/min/1.73 sq m ESTIMATED GFR IS NOT nqjo=9666) ACCURATE CREATININE CLEARANCE IN PREDICTING GLOMERULAR FILTRATION RATE. ESTIMATED GFR IS NOT APPLICABLE FOR DIALYSIS PATIENTS. Check Serum Phosphorus level 4 hours after IV phosphorus replacement or 8 hours after PO replacementcompleted.CBC (HEMOGRAM ONLY)2018-07-09 04:38:00 Test Item Value Reference Range Comments WHITE BLOOD CELL COUNT (BEAKER) (test ayon=103) 7.8 K/ L 3.5-10.5 RED BLOOD CELL COUNT (BEAKER) (test enla=779) 3.12 M/ L 4.63-6.08 HEMOGLOBIN (BEAKER) (test kwli=762) 10.2 GM/DL 13.7-17.5 HEMATOCRIT (BEAKER) (test fzza=898) 31.3 % 40.1-51.0 MEAN CORPUSCULAR VOLUME (BEAKER) (test ugpl=599) 100.3 fL 79.0-92.2 MEAN CORPUSCULAR HEMOGLOBIN (BEAKER) (test 32.7 pg 25.7-32.2 vgri=563) MEAN CORPUSCULAR HEMOGLOBIN CONC (BEAKER) (test 32.6 GM/DL 32.3-36.5 ifzd=927) RED CELL DISTRIBUTION WIDTH (BEAKER) (test 12.6 % 11.6-14.4 qpcp=679) PLATELET COUNT (BEAKER) (test elhj=481) 107 K/CU MM 150-450 MEAN PLATELET VOLUME (BEAKER) (test qdho=046) 10.6 fL 9.4-12.4 NUCLEATED RED BLOOD CELLS (BEAKER) (test 0 /100 WBC 0-0 tywf=257) [id number] 00:40:00 Test Item Value Reference Range Comments POTASSIUM (BEAKER) (test ixwc=246) 3.5 meq/L 3.5-5.1 Every 8 hours PRN for Creatinine greater than or equal to 2 mg/dL.POCT-GLUCOSE [id number] 20:50:00 Test Item Value Reference Range Comments POC-GLUCOSE METER (BEAKER) 171 mg/dL 70-[address] [facility] [address] [facility] (test gpem=7473) [facility] [address] [id number] 18:19:00 Test Item Value Reference Range Comments POTASSIUM (BEAKER) (test mxoq=414) 3.7 meq/L 3.5-5.1 Check Serum Magnesium level 2 hours after IV magnesium replacement.Check Serum Phosphorus level 4 hours after IV phosphorus replacement or 8 hours after PO replacement completed.8 hours after PO replacement [id number] 18:19:00 Test Item Value Reference Range Comments MAGNESIUM (BEAKER) (test inet=591) 2.1 mg/dL 1.6-2.6 Check Serum Magnesium level 2 hours after IV magnesium replacement.Check Serum Phosphorus level 4 hours after IV phosphorus replacement or 8 hours after PO replacement completed.8 hours after PO replacement [id number] 18:19:00 Test Item Value Reference Range Comments PHOSPHORUS (BEAKER) (test cmjd=325) 1.7 mg/dL 2.3-4.7 Check Serum Magnesium level 2 hours after IV magnesium replacement.Check Serum Phosphorus level 4 hours after IV phosphorus replacement or 8 hours after PO replacement completed.8 hours after PO replacement completedCALCIUM, [id number] 18:03:00 Test Item Value Reference Range Comments CALCIUM IONIZED (BEAKER) (test kgwn=408) 1.13 mmol/L 1.12-1.27 PH, BLOOD (BEAKER) (test nugb=6881) 7.51 Check serum Ionized Calcium level after 4 hours after IV Calcium replacement.POCT-GLUCOSE [id number] 17:17:00 Test Item Value Reference Range Comments POC-GLUCOSE METER (BEAKER) 195 mg/dL 70-110 TESTED AT [address] (test gchw=1288) [facility] [address] POCT-GLUCOSE [id number] 12:17:00 Test Item Value Reference Range Comments POC-GLUCOSE METER (BEAKER) 231 mg/dL 70-110 TESTED AT [address] (test qgnz=1470) [facility] [address] RAD, CHEST, 1 VIEW, NON [id number] 09:19:00Reason for exam:-> hypoxiaShould this be performed [...] MDReport Verified Date/Time: 07/08/2018 09:19:57 Reading Location: [address] Transitional Reading Room [id number] 08:56:00 Test Item Value Reference Range Comments PHOSPHORUS (BEAKER) (test qqzv=329) 1.7 mg/dL 2.3-4.7 [id number] 08:56:00 Test Item Value Reference Range Comments MAGNESIUM (BEAKER) (test yvul=716) 2.1 mg/dL 1.6-2.6 BASIC METABOLIC [id number] 08:56:00 Test Item Value Reference Range Comments SODIUM (BEAKER) (test 141 meq/L 136-145 ddcv=315) POTASSIUM (BEAKER) (test 4.0 meq/L 3.5-5.1 ioeb=591) CHLORIDE (BEAKER) (test 109 meq/L 98-107 wyhh=961) CO2 (BEAKER) (test 24 meq/L 22-29 uxcf=600) BLOOD UREA NITROGEN 13 mg/dL 7-21 (BEAKER) (test nzxc=961) CREATININE (BEAKER) (test 0.87 mg/dL 0.57-1.25 mcra=198) GLUCOSE RANDOM (BEAKER) 153 mg/dL 70-105 (test qcco=714) CALCIUM (BEAKER) (test 9.1 mg/dL 8.4-10.2 rril=056) EGFR (BEAKER) (test 92 mL/min/1.73 sq m ESTIMATED GFR IS NOT zggb=2097) ACCURATE CREATININE CLEARANCE IN PREDICTING GLOMERULAR FILTRATION RATE. ESTIMATED GFR IS NOT APPLICABLE FOR DIALYSIS PATIENTS. BLOOD GAS, [id number] 08:49:00 Test Item Value Reference Range Comments PH ARTERIAL (BEAKER) (test hupd=589) 7.48 7.35-7.45 PCO2 ARTERIAL (BEAKER) (test bhpo=360) 40 mmHg 35-45 PO2 ARTERIAL (BEAKER) (test psyu=463) 92 mmHg 80-90 O2 SATURATION ARTERIAL (BEAKER) (test ldpj=942) 97.5 % 96.0-97.0 HCO3 ARTERIAL (BEAKER) (test ahzt=127) 29 mmol/L 21-29 BASE EXCESS ARTERIAL (BEAKER) (test nkor=195) 4.8 mmol/L -2.0-3.0 PATIENT TEMPERATURE (BEAKER) (test fynp=6298) 37.0 C FIO2 (BEAKER) (test frdp=3576) 60.0 % CBC W/PLT COUNT & AUTO [id number] 06:39:00 Test Item Value Reference Range Comments WHITE BLOOD CELL COUNT (BEAKER) (test ieax=892) 8.3 K/ L 3.5-10.5 RED BLOOD CELL COUNT (BEAKER) (test jgtg=014) 3.15 M/ L 4.63-6.08 HEMOGLOBIN (BEAKER) (test oojb=153) 10.4 GM/DL 13.7-17.5 HEMATOCRIT (BEAKER) (test bvyu=720) 31.8 % 40.1-51.0 MEAN CORPUSCULAR VOLUME (BEAKER) (test pwbr=039) 101.0 fL 79.0-92.2 MEAN CORPUSCULAR HEMOGLOBIN (BEAKER) (test 33.0 pg 25.7-32.2 owht=154) MEAN CORPUSCULAR HEMOGLOBIN CONC (BEAKER) (test 32.7 GM/DL 32.3-36.5 xzau=447) RED CELL DISTRIBUTION WIDTH (BEAKER) (test 12.8 % 11.6-14.4 bkyr=944) PLATELET COUNT (BEAKER) (test dxwh=616) 94 K/CU MM 150-450 MEAN PLATELET VOLUME (BEAKER) (test cotp=302) 10.7 fL 9.4-12.4 NUCLEATED RED BLOOD CELLS (BEAKER) (test 0 /100 WBC 0-0 ctii=629) NEUTROPHILS RELATIVE PERCENT (BEAKER) (test 68 % iacj=626) LYMPHOCYTES RELATIVE PERCENT (BEAKER) (test 15 % jdcu=394) MONOCYTES RELATIVE PERCENT (BEAKER) (test 16 % vday=451) EOSINOPHILS RELATIVE PERCENT (BEAKER) (test 1 % smuf=822) BASOPHILS RELATIVE PERCENT (BEAKER) (test 0 % cuax=946) NEUTROPHILS ABSOLUTE COUNT (BEAKER) (test 5.62 K/ L 1.78-5.38 fhxs=275) LYMPHOCYTES ABSOLUTE COUNT (BEAKER) (test 1.26 K/ L 1.32-3.57 qzbq=810) MONOCYTES ABSOLUTE COUNT (BEAKER) (test ucpa=360) 1.31 K/ L 0.30-0.82 EOSINOPHILS ABSOLUTE COUNT (BEAKER) (test 0.04 K/ L 0.04-0.54 tvlm=581) BASOPHILS ABSOLUTE COUNT (BEAKER) (test wogk=345) 0.02 K/ L 0.01-0.08 IMMATURE GRANULOCYTES-RELATIVE PERCENT (BEAKER) 1 % 0-1 (test rjag=6972) POCT-GLUCOSE [id number] 05:59:00 Test Item Value Reference Range Comments POC-GLUCOSE METER (BEAKER) 175 mg/dL 70-110 TESTED AT [address] (test ytsx=3724) [facility] [address] BLOOD GAS, [id number] 21:35:00 Test Item Value Reference Range Comments PH ARTERIAL (BEAKER) (test ugzo=143) 7.43 7.35-7.45 PCO2 ARTERIAL (BEAKER) (test hmst=768) 40 mmHg 35-45 PO2 ARTERIAL (BEAKER) (test dayr=647) 80 mmHg 80-90 O2 SATURATION ARTERIAL (BEAKER) (test ycde=780) 96.1 % 96.0-97.0 HCO3 ARTERIAL (BEAKER) (test xwfr=154) 26 mmol/L 21-29 BASE EXCESS ARTERIAL (BEAKER) (test ovsb=952) 1.7 mmol/L -2.0-3.0 PATIENT TEMPERATURE (BEAKER) (test hexn=9430) 36.9 C FIO2 (BEAKER) (test qmbj=0216) 60.0 % POCT-GLUCOSE [id number] 21:31:00 Test Item Value Reference Range Comments POC-GLUCOSE METER (BEAKER) 194 mg/dL 70-110 TESTED AT [address] (test bbhn=9224) [facility] [address] OXYGEN SATURATION, [id number] 19:33:00 Test Item Value Reference Range Comments O2 SATURATION (MEASURED) (BEAKER) (test sxho=4972) 68.6 % For occult hypoperfusionLACTIC ACID, VENOUS, WHOLE [id number] 16:49:00 Test Item Value Reference Range Comments LACTATE BLOOD VENOUS (2) (BEAKER) (test 1.0 mmol/L 0.5-2.2 syfl=1067) BLOOD GAS, [id number] 16:43:00 Test Item Value Reference Range Comments PH VENOUS (BEAKER) (test rvpq=392) 7.39 7.32-7.42 PCO2 VENOUS (BEAKER) (test lhwc=114) 44 mmHg 41-51 PO2 VENOUS (BEAKER) (test yeab=074) 29 mmHg 25-40 O2 SATURATION VENOUS (BEAKER) (test rypv=856) 59.6 % 40.0-70.0 HCO3 VENOUS (BEAKER) (test kdme=964) 26 mmol/L 21-29 BASE EXCESS VENOUS (BEAKER) (test wcwn=736) 0.6 mmol/L -2.0-3.0 PATIENT TEMPERATURE (BEAKER) (test zkhr=8556) 35.3 C FIO2 (BEAKER) (test irmb=3730) 60.0 % CBC W/PLT COUNT & AUTO [id number] 16:37:00 Test Item Value Reference Range Comments WHITE BLOOD CELL COUNT (BEAKER) (test liue=587) 13.4 K/ L 3.5-10.5 RED BLOOD CELL COUNT (BEAKER) (test gata=248) 3.36 M/ L 4.63-6.08 HEMOGLOBIN (BEAKER) (test fywq=523) 11.0 GM/DL 13.7-17.5 HEMATOCRIT (BEAKER) (test kysj=784) 34.1 % 40.1-51.0 MEAN CORPUSCULAR VOLUME (BEAKER) (test zzun=002) 101.5 fL 79.0-92.2 MEAN CORPUSCULAR HEMOGLOBIN (BEAKER) (test 32.7 pg 25.7-32.2 bdcz=321) MEAN CORPUSCULAR HEMOGLOBIN CONC (BEAKER) (test 32.3 GM/DL 32.3-36.5 voee=915) RED CELL DISTRIBUTION WIDTH (BEAKER) (test 12.7 % 11.6-14.4 nunl=470) PLATELET COUNT (BEAKER) (test rhdb=577) 132 K/CU MM 150-450 MEAN PLATELET VOLUME (BEAKER) (test eobz=003) 10.6 fL 9.4-12.4 NUCLEATED RED BLOOD CELLS (BEAKER) (test 0 /100 WBC 0-0 qtiw=520) (CELLAVISION MANUAL DIFF)2018-07-07 16:37:00 Test Item Value Reference Range Comments NEUTROPHILS - REL (CELLAVISION)(BEAKER) (test 80 % zlsf=7636) LYMPHOCYTES - REL (CELLAVISION)(BEAKER) (test 9 % ezxo=1353) MONOCYTES - REL (CELLAVISION)(BEAKER) (test 8 % nqix=9218) BANDS - REL (CELLAVISION)(BEAKER) (test 3 % 0-10 wzek=5695) NEUTROPHILS - ABS (CELLAVISION)(BEAKER) (test 10.72 K/ul 1.78-5.38 fmjq=3405) LYMPHOCYTES - ABS (CELLAVISION)(BEAKER) (test 1.21 K/ul 1.32-3.57 avfb=3038) MONOCYTES - ABS (CELLAVISION)(BEAKER) (test 1.07 K/uL 0.30-0.82 jiee=2957) BANDS - ABS (CELLAVISION)(BEAKER) (test 0.40 K/uL 0.00-0.80 dgzd=4697) TOTAL COUNTED (BEAKER) (test cfaz=1637) 100 RBC MORPHOLOGY (BEAKER) (test uyoq=119) Normal WBC MORPHOLOGY (BEAKER) (test zyyn=823) Normal PLT MORPHOLOGY (BEAKER) (test nbjr=461) Normal ARTIFACT (CELLAVISION)(BEAKER) (test gzwq=9124) Present PLATELET CONCENTRATION (CELLAVISION)(BEAKER) Decreased (test mmon=5186) Received comment: User comments: Slide comments:POCT-GLUCOSE [id number] 16: 30:00 Test Item Value Reference Range Comments POC-GLUCOSE METER (BEAKER) 239 mg/dL 70-[address] [facility] [address] [facility] (test yznm=2956) [facility] [id number] BLOOD GAS, [id number] 13:33:00 Test Item Value Reference Range Comments PH ARTERIAL (BEAKER) (test rnmm=019) 7.38 7.35-7.45 PCO2 ARTERIAL (BEAKER) (test zuhu=090) 43 mmHg 35-45 PO2 ARTERIAL (BEAKER) (test ezgk=598) 74 mmHg 80-90 O2 SATURATION ARTERIAL (BEAKER) (test bpmp=017) 94.6 % 96.0-97.0 HCO3 ARTERIAL (BEAKER) (test jqlg=308) 25 mmol/L 21-29 BASE EXCESS ARTERIAL (BEAKER) (test cbtm=758) -0.2 mmol/L -2.0-3.0 PATIENT TEMPERATURE (BEAKER) (test ztjz=9099) 37.0 C FIO2 (BEAKER) (test hgfu=2292) 32.0 % [id number] 13:09:00 Test Item Value Reference Range Comments MAGNESIUM (BEAKER) (test 2.2 mg/dL 1.6-2.6 Specimen slightly hemolyzed krwd=944) BASIC METABOLIC [id number] 13:09:00 Test Item Value Reference Range Comments SODIUM (BEAKER) (test 141 meq/L 136-145 mpzi=626) POTASSIUM (BEAKER) (test 4.4 meq/L 3.5-5.1 Specimen slightly vsfb=007) hemolyzed CHLORIDE (BEAKER) (test 110 meq/L 98-107 qhue=563) CO2 (BEAKER) (test 25 meq/L 22-29 qgyy=462) BLOOD UREA NITROGEN 19 mg/dL 7-21 (BEAKER) (test lrzq=109) CREATININE (BEAKER) (test 1.11 mg/dL 0.57-1.25 Specimen slightly ogqt=274) hemolyzed GLUCOSE RANDOM (BEAKER) 204 mg/dL 70-105 (test vkat=803) CALCIUM (BEAKER) (test 8.6 mg/dL 8.4-10.2 fynj=451) EGFR (BEAKER) (test 69 mL/min/1.73 sq m ESTIMATED GFR IS NOT kvqf=2030) ACCURATE CREATININE CLEARANCE IN PREDICTING GLOMERULAR FILTRATION RATE. ESTIMATED GFR IS NOT APPLICABLE FOR DIALYSIS PATIENTS. CALCIUM, [id number] 12:44:00 Test Item Value Reference Range Comments CALCIUM IONIZED (BEAKER) (test xfvi=464) 1.14 mmol/L 1.12-1.27 PH, BLOOD (BEAKER) (test nrqx=3804) 7.34 [id number] 11:12:00 Test Item Value Reference Range Comments MAGNESIUM (BEAKER) (test iohp=552) 2.1 mg/dL 1.6-2.6 Check Serum Magnesium level 2 hours after IV magnesium replacement.GLUCOSE-STAT [id number] 11:00:00 Test Item Value Reference Range Comments GLUCOSE RANDOM (BEAKER) (test fevu=787) 194 mg/dL 70-110 HGB/HCT (H&H) - STAT [id number] 11:00:00 Test Item Value Reference Range Comments HEMOGLOBIN (BEAKER) (test hvnp=965) 12.5 g/dL 13.0-16.8 HEMATOCRIT (BEAKER) (test ifii=436) 37.0 % 40.0-50.0 SODIUM NA-STAT [id number] 10:58:00 Test Item Value Reference Range Comments SODIUM (BEAKER) (test ysir=345) 138 meq/L 135-148 POTASSIUM-STAT [id number] 10:58:00 Test Item Value Reference Range Comments POTASSIUM (BEAKER) (test rabm=632) 4.2 meq/L 3.6-5.5 CBC W/PLT COUNT & AUTO [id number] 09:53:00 Test Item Value Reference Range Comments WHITE BLOOD CELL COUNT (BEAKER) (test obzb=824) 14.0 K/ L 3.5-10.5 RED BLOOD CELL COUNT (BEAKER) (test nytd=537) 4.02 M/ L 4.63-6.08 HEMOGLOBIN (BEAKER) (test xwvn=991) 12.9 GM/DL 13.7-17.5 HEMATOCRIT (BEAKER) (test jjhq=192) 39.7 % 40.1-51.0 MEAN CORPUSCULAR VOLUME (BEAKER) (test rzfo=949) 98.8 fL 79.0-92.2 MEAN CORPUSCULAR HEMOGLOBIN (BEAKER) (test 32.1 pg 25.7-32.2 ennm=962) MEAN CORPUSCULAR HEMOGLOBIN CONC (BEAKER) (test 32.5 GM/DL 32.3-36.5 jozc=033) RED CELL DISTRIBUTION WIDTH (BEAKER) (test 12.6 % 11.6-14.4 omca=724) PLATELET COUNT (BEAKER) (test ptya=720) 170 K/CU MM 150-450 MEAN PLATELET VOLUME (BEAKER) (test jrng=319) 10.6 fL 9.4-12.4 NUCLEATED RED BLOOD CELLS (BEAKER) (test 0 /100 WBC 0-0 wmrw=876) NEUTROPHILS RELATIVE PERCENT (BEAKER) (test 69 % vvjp=400) LYMPHOCYTES RELATIVE PERCENT (BEAKER) (test 16 % mthj=865) MONOCYTES RELATIVE PERCENT (BEAKER) (test 14 % svrv=809) EOSINOPHILS RELATIVE PERCENT (BEAKER) (test 0 % xkfs=133) BASOPHILS RELATIVE PERCENT (BEAKER) (test 0 % jmyf=006) NEUTROPHILS ABSOLUTE COUNT (BEAKER) (test 9.67 K/ L 1.78-5.38 igqw=073) LYMPHOCYTES ABSOLUTE COUNT (BEAKER) (test 2.23 K/ L 1.32-3.57 lhqj=514) MONOCYTES ABSOLUTE COUNT (BEAKER) (test 1.94 K/ L 0.30-0.82 thgd=992) EOSINOPHILS ABSOLUTE COUNT (BEAKER) (test 0.01 K/ L 0.04-0.54 wmol=283) BASOPHILS ABSOLUTE COUNT (BEAKER) (test 0.05 K/ L 0.01-0.08 iwlb=117) IMMATURE GRANULOCYTES-RELATIVE PERCENT (BEAKER) 1 % 0-1 (test twcm=7898) [id number] 05:10:00 Test Item Value Reference Range Comments MAGNESIUM (BEAKER) (test 2.3 mg/dL 1.6-2.6 Specimen slightly hemolyzed dsqq=640) [id number] 05:10:00 Test Item Value Reference Range Comments PHOSPHORUS (BEAKER) (test 3.9 mg/dL 2.3-4.7 Specimen slightly hemolyzed gaxy=105) BASIC METABOLIC [id number] 05:10:00 Test Item Value Reference Range Comments SODIUM (BEAKER) (test 141 meq/L 136-145 rxne=134) POTASSIUM (BEAKER) (test 4.6 meq/L 3.5-5.1 Specimen slightly zvwu=258) hemolyzed CHLORIDE (BEAKER) (test 110 meq/L 98-107 cknf=448) CO2 (BEAKER) (test 24 meq/L 22-29 rflb=666) BLOOD UREA NITROGEN 19 mg/dL 7-21 (BEAKER) (test kvke=155) CREATININE (BEAKER) (test 1.08 mg/dL 0.57-1.25 Specimen slightly inal=150) hemolyzed GLUCOSE RANDOM (BEAKER) 184 mg/dL 70-105 (test skjf=557) CALCIUM (BEAKER) (test 8.7 mg/dL 8.4-10.2 kajy=061) EGFR (BEAKER) (test 72 mL/min/1.73 sq m ESTIMATED GFR IS NOT smon=7759) ACCURATE CREATININE CLEARANCE IN PREDICTING GLOMERULAR FILTRATION RATE. ESTIMATED GFR IS NOT APPLICABLE FOR DIALYSIS PATIENTS. RAD, CHEST, 1 VIEW, NON [id number] 04:15:00while patient is intubated or has chest [...] [place] Verified Date/Time: 07/07/2018 04:15:31 Reading Location: [address] Reading Room POCT-GLUCOSE [id number] 22:22:00 Test Item Value Reference Range Comments POC-GLUCOSE METER (BEAKER) 208 mg/dL 70-[address] [facility] [address] [facility] (test ftyo=7762) [facility] [address] BLOOD GAS, [id number] 20:12:00 Test Item Value Reference Range Comments PH ARTERIAL (BEAKER) (test owuf=445) 7.40 7.35-7.45 PCO2 ARTERIAL (BEAKER) (test hmqv=974) 38 mmHg 35-45 PO2 ARTERIAL (BEAKER) (test fwjd=872) 88 mmHg 80-90 O2 SATURATION ARTERIAL (BEAKER) (test mggp=891) 96.6 % 96.0-97.0 HCO3 ARTERIAL (BEAKER) (test tqbf=252) 23 mmol/L 21-29 BASE EXCESS ARTERIAL (BEAKER) (test oqom=677) -1.4 mmol/L -2.0-3.0 PATIENT TEMPERATURE (BEAKER) (test jezc=5736) 37.4 C FIO2 (BEAKER) (test oovv=8222) 40.0 % CBC W/PLT COUNT & AUTO [id number] 19:32:00 Test Item Value Reference Range Comments WHITE BLOOD CELL COUNT (BEAKER) (test ulcx=040) 16.5 K/ L 3.5-10.5 RED BLOOD CELL COUNT (BEAKER) (test ywxn=645) 4.34 M/ L 4.63-6.08 HEMOGLOBIN (BEAKER) (test ssdm=233) 14.4 GM/DL 13.7-17.5 HEMATOCRIT (BEAKER) (test ypfd=761) 42.5 % 40.1-51.0 MEAN CORPUSCULAR VOLUME (BEAKER) (test kqad=489) 97.9 fL 79.0-92.2 MEAN CORPUSCULAR HEMOGLOBIN (BEAKER) (test 33.2 pg 25.7-32.2 ljyc=299) MEAN CORPUSCULAR HEMOGLOBIN CONC (BEAKER) (test 33.9 GM/DL 32.3-36.5 nttm=898) RED CELL DISTRIBUTION WIDTH (BEAKER) (test 12.3 % 11.6-14.4 ovfl=992) PLATELET COUNT (BEAKER) (test hius=400) 142 K/CU MM 150-450 MEAN PLATELET VOLUME (BEAKER) (test ywzn=314) 10.3 fL 9.4-12.4 NUCLEATED RED BLOOD CELLS (BEAKER) (test 0 /100 WBC 0-0 prfe=171) (CELLAVISION MANUAL DIFF)2018-07-06 19:32:00 Test Item Value Reference Range Comments NEUTROPHILS - REL (CELLAVISION)(BEAKER) (test 74 % tqjr=3351) LYMPHOCYTES - REL (CELLAVISION)(BEAKER) (test 11 % mrhj=0579) MONOCYTES - REL (CELLAVISION)(BEAKER) (test 9 % hhql=1527) BANDS - REL (CELLAVISION)(BEAKER) (test 6 % 0-10 alye=2297) NEUTROPHILS - ABS (CELLAVISION)(BEAKER) (test 12.21 K/ul 1.78-5.38 rnih=2926) LYMPHOCYTES - ABS (CELLAVISION)(BEAKER) (test 1.82 K/ul 1.32-3.57 leam=8933) MONOCYTES - ABS (CELLAVISION)(BEAKER) (test 1.49 K/uL 0.30-0.82 aytp=7798) BANDS - ABS (CELLAVISION)(BEAKER) (test 0.99 K/uL 0.00-0.80 kxxn=7514) TOTAL COUNTED (BEAKER) (test qpzz=3610) 100 RBC MORPHOLOGY (BEAKER) (test nsai=592) Normal WBC MORPHOLOGY (BEAKER) (test nbsm=338) Normal PLT MORPHOLOGY (BEAKER) (test etjk=051) Normal POCT-GLUCOSE [id number] 18:56:00 Test Item Value Reference Range Comments POC-GLUCOSE METER (BEAKER) 206 mg/dL 70-[address] [facility] [address] [facility] (test zshl=5067) [facility] [address] BASIC METABOLIC [id number] 17:20:00 Test Item Value Reference Range Comments SODIUM (BEAKER) (test 139 meq/L 136-145 mffl=181) POTASSIUM (BEAKER) (test 5.2 meq/L 3.5-5.1 Specimen slightly xvqr=607) hemolyzed CHLORIDE (BEAKER) (test 108 meq/L 98-107 mifj=016) CO2 (BEAKER) (test 22 meq/L 22-29 avch=177) BLOOD UREA NITROGEN 21 mg/dL 7-21 (BEAKER) (test gcft=467) CREATININE (BEAKER) (test 1.08 mg/dL 0.57-1.25 Specimen slightly tjlb=090) hemolyzed GLUCOSE RANDOM (BEAKER) 213 mg/dL 70-105 (test ccgg=429) CALCIUM (BEAKER) (test 9.1 mg/dL 8.4-10.2 rjnc=063) EGFR (BEAKER) (test 72 mL/min/1.73 sq m ESTIMATED GFR IS NOT flfn=1973) ACCURATE CREATININE CLEARANCE IN PREDICTING GLOMERULAR FILTRATION RATE. ESTIMATED GFR IS NOT APPLICABLE FOR DIALYSIS PATIENTS. LACTIC ACID, ARTERIAL, WHOLE [id number] 16:50:00 Test Item Value Reference Range Comments LACTATE BLOOD ARTERIAL (2) (BEAKER) (test 1.2 mmol/L 0.5-2.2 tsfc=8302) [id number] 16:45:00 Test Item Value Reference Range Comments MAGNESIUM (BEAKER) (test 2.7 mg/dL 1.6-2.6 Specimen slightly hemolyzed fyov=901) [id number] 16:45:00 Test Item Value Reference Range Comments PHOSPHORUS (BEAKER) (test 3.6 mg/dL 2.3-4.7 Specimen slightly hemolyzed fvtn=049) [id number] 16:45:00 Test Item Value Reference Range Comments POTASSIUM (BEAKER) (test 5.1 meq/L 3.5-5.1 Specimen slightly hemolyzed nctl=070) [id number] 16:45:00 Test Item Value Reference Range Comments SODIUM (BEAKER) (test mcnq=972) 137 meq/L 136-145 [id number] 16:45:00 Test Item Value Reference Range Comments GLUCOSE RANDOM (BEAKER) (test hmhq=711) 193 mg/dL 70-105 [id number] 16:39:00 Test Item Value Reference Range Comments PROTIME (BEAKER) (test zfix=492) 15.4 seconds 11.7-14.7 INR (BEAKER) (test azuh=109) 1.2 <=5.9 PARTIAL THROMBOPLASTIN TIME (BEAKER) (test 28.7 seconds 22.5-36.0 snup=393) RECOMMENDED COUMADIN/WARFARIN INR THERAPY RANGESSTANDARD DOSE: 2.0 - 3.0 Includes: PROPHYLAXIS forvenous thrombosis, systemic embolization; TREATMENT for venous thrombosis and/or pulmonary embolus.HIGH RISK: Target INR is 2.5-3.5 for patients with mechanical heart valves.[id number] 16:39:00 Test Item Value Reference Range Comments FIBRINOGEN LEVEL (BEAKER) (test zlxp=242) 282 mg/dl 225-434 PROTHROMBIN [id number] 16:38:00 Test Item Value Reference Range Comments PROTIME (BEAKER) (test jjrd=935) 15.4 seconds 11.7-14.7 INR (BEAKER) (test sffq=873) 1.2 <=5.9 RECOMMENDED COUMADIN/WARFARIN INR THERAPY RANGESSTANDARD DOSE: 2.0 - 3.0 Includes: PROPHYLAXIS forvenous thrombosis, systemic embolization; TREATMENT for venous thrombosis and/or pulmonary embolus.HIGH RISK: Target INR is 2.5-3.5 for patients with mechanical heart valves.RAD, CHEST, 1 VIEW, NON [id number] 16:16:00Reason for exam:->s/p CABGShould this be [...] [place] Verified Date/Time: 07/06/2018 16:16:23 Reading Location: [facility] Radiology Reading Room OXYGEN SATURATION, [id number] 16:00:00 Test Item Value Reference Range Comments O2 SATURATION (MEASURED) (BEAKER) (test uvis=7005) 64.6 % BLOOD GAS, [id number] 15:59:00 Test Item Value Reference Range Comments PH ARTERIAL (BEAKER) (test fpft=519) 7.35 7.35-7.45 PCO2 ARTERIAL (BEAKER) (test hvdz=778) 45 mmHg 35-45 PO2 ARTERIAL (BEAKER) (test hnxi=416) 80 mmHg 80-90 O2 SATURATION ARTERIAL (BEAKER) (test aesc=448) 95.7 % 96.0-97.0 HCO3 ARTERIAL (BEAKER) (test iidf=483) 24 mmol/L 21-29 BASE EXCESS ARTERIAL (BEAKER) (test bgfs=977) -1.9 mmol/L -2.0-3.0 PATIENT TEMPERATURE (BEAKER) (test spbm=9852) 36.2 C FIO2 (BEAKER) (test akns=4550) 50.0 % [id number] 15:14:00 Test Item Value Reference Range Comments ACTIVATED CLOTTING TIME 103 sec TESTED AT [place] [address] [facility] (BEAKER) (test qwab=220) [place] [address] [id number] 15:14:00 Test Item Value Reference Range Comments ACTIVATED CLOTTING TIME 423 sec TESTED AT [address] (BEAKER) (test bcxc=600) [place] [address] [id number] 15:14:00 Test Item Value Reference Range Comments ACTIVATED CLOTTING TIME 384 sec TESTED AT [address] (BEAKER) (test yxwn=668) [place] [address] THROMBOELASTOGRAPH (TEG)2018-07-06 15:08:00 Test Item Value Reference Range Comments TEG ACTIVATED CLOTTING TIME (BEAKER) (test 3.8 minutes 4.0-7.0 pfyh=1081) TEG FIBRINOGEN ACTIVITY (BEAKER) (test 64.5 degrees 61.0-73.0 lija=8518) TEG PLT. AGGREGATION (BEAKER) (test dgwc=1602) 57.2 MM 55.0-65.0 TEG FIBRINOLYSIS (BEAKER) (test elqj=1604) 16.0 % 0.0-5.0 TGH ACTIVATED CLOTTING TIME (BEAKER) (test 4.2 minutes 4.0-7.0 yfoc=8510) TGH FIBRINOGEN ACTIVITY (BEAKER) (test 65.6 degrees 61.0-73.0 otqg=3980) TGH PLT. AGGREGATION (BEAKER) (test fnpt=2102) 53.0 MM 55.0-65.0 TGH FIBRINOLYSIS (BEAKER) (test faqf=5620) 0.0 % 0.0-5.0 PLATELET [id number] 14:31:00 Test Item Value Reference Range Comments PLATELET COUNT (BEAKER) (test ojkg=747) 125 K/CU MM 150-450 [id number] 14:18:00 Test Item Value Reference Range Comments FIBRINOGEN LEVEL (BEAKER) (test nmdr=282) 406 mg/dl 225-434 [id number] 14:18:00 Test Item Value Reference Range Comments PARTIAL THROMBOPLASTIN TIME (BEAKER) (test 24.4 seconds 22.5-36.0 pfsb=874) PROTHROMBIN [id number] 14:17:00 Test Item Value Reference Range Comments PROTIME (BEAKER) (test oelw=177) 14.1 seconds 11.7-14.7 INR (BEAKER) (test urdp=159) 1.1 <=5.9 RECOMMENDED COUMADIN/WARFARIN INR THERAPY RANGESSTANDARD DOSE: 2.0 - 3.0 Includes: PROPHYLAXIS forvenous thrombosis, systemic embolization; TREATMENT for venous thrombosis and/or pulmonary embolus.HIGH RISK: Target INR is 2.5-3.5 for patients with mechanical heart valves.GLUCOSE-STAT [id number] 14:03:00 Test Item Value Reference Range Comments GLUCOSE RANDOM (BEAKER) (test dfzq=340) 165 mg/dL 70-110 SODIUM NA-STAT [id number] 14:03:00 Test Item Value Reference Range Comments SODIUM (BEAKER) (test dbqm=867) 133 meq/L 135-148 HGB/HCT (H&H) - STAT [id number] 14:03:00 Test Item Value Reference Range Comments HEMOGLOBIN (BEAKER) (test orir=998) 12.5 g/dL 13.0-16.8 HEMATOCRIT (BEAKER) (test skiy=415) 37.0 % 40.0-50.0 POTASSIUM-STAT [id number] 14:02:00 Test Item Value Reference Range Comments POTASSIUM (BEAKER) (test lmuc=037) 4.4 meq/L 3.6-5.5 BLOOD GAS, [id number] 14:02:00 Test Item Value Reference Range Comments PH ARTERIAL (BEAKER) (test odpo=338) 7.35 7.35-7.45 PCO2 ARTERIAL (BEAKER) (test lbav=129) 47 mmHg 35-45 PO2 ARTERIAL (BEAKER) (test cudc=872) 142 mmHg 80-90 O2 SATURATION ARTERIAL (BEAKER) (test ryaw=410) 98.8 % 96.0-97.0 HCO3 ARTERIAL (BEAKER) (test aozm=056) 26 mmol/L 21-29 BASE EXCESS ARTERIAL (BEAKER) (test mrny=230) -0.8 mmol/L -2.0-3.0 PATIENT TEMPERATURE (BEAKER) (test iqxo=1977) 35.0 C FIO2 (BEAKER) (test pdab=1891) 100.0 % BLOOD GAS, [id number] 13:22:00 Test Item Value Reference Range Comments PH VENOUS (BEAKER) (test 7.34 7.32-7.42 This is a corrected result. zavn=824) Previous result was 7.36 on 07/06/2018 at 1313 DAMAGE PREVENTION COORDINATOR PCO2 VENOUS (BEAKER) (test 46 mmHg 41-51 This is a corrected result. busv=298) Previous result was 44 mmHg on 07/06/2018 at 1313 DAMAGE PREVENTION COORDINATOR PO2 VENOUS (BEAKER) (test 46 mmHg 25-40 This is a corrected result. vzts=402) Previous result was 282 mmHg on 07/06/2018 at 1313 DAMAGE PREVENTION COORDINATOR O2 SATURATION VENOUS (BEAKER) 93.4 % 40.0-70.0 This is a corrected result. (test llfc=211) Previous result was 99.6 % on 07/06/2018 at 1313 DAMAGE PREVENTION COORDINATOR HCO3 VENOUS (BEAKER) (test 27 mmol/L 21-29 zqnb=899) BASE EXCESS VENOUS (BEAKER) -1.8 mmol/L -2.0-3.0 (test qzxy=312) PATIENT TEMPERATURE (BEAKER) 28.2 C (test dcps=2589) FIO2 (BEAKER) (test xmhl=7942) 65.0 % BLOOD GAS, [id number] 13:15:00 Test Item Value Reference Range Comments PH ARTERIAL (BEAKER) (test ngvb=199) 7.36 7.35-7.45 PCO2 ARTERIAL (BEAKER) (test bwox=825) 44 mmHg 35-45 PO2 ARTERIAL (BEAKER) (test cmig=811) 282 mmHg 80-90 O2 SATURATION ARTERIAL (BEAKER) (test wvyq=839) 99.6 % 96.0-97.0 HCO3 ARTERIAL (BEAKER) (test fsqq=576) 27 mmol/L 21-29 BASE EXCESS ARTERIAL (BEAKER) (test ntvh=342) -1.8 mmol/L -2.0-3.0 PATIENT TEMPERATURE (BEAKER) (test tfzb=7303) 28.2 C FIO2 (BEAKER) (test gzjd=5166) 65.0 % SODIUM NA-STAT [id number] 13:15:00 Test Item Value Reference Range Comments SODIUM (BEAKER) (test wykb=313) 132 meq/L 135-148 GLUCOSE-STAT [id number] 13:15:00 Test Item Value Reference Range Comments GLUCOSE RANDOM (BEAKER) (test lntl=354) 183 mg/dL 70-110 HGB/HCT (H&H) - STAT [id number] 13:15:00 Test Item Value Reference Range Comments HEMOGLOBIN (BEAKER) (test dleu=050) 11.4 g/dL 13.0-16.8 HEMATOCRIT (BEAKER) (test xrwu=279) 34.0 % 40.0-50.0 POTASSIUM-STAT [id number] 13:14:00 Test Item Value Reference Range Comments POTASSIUM (BEAKER) (test ekxv=588) 3.9 meq/L 3.6-5.5 SODIUM NA-STAT [id number] 13:07:00 Test Item Value Reference Range Comments SODIUM (BEAKER) (test cstr=240) 138 meq/L 135-148 POTASSIUM-STAT [id number] 13:07:00 Test Item Value Reference Range Comments POTASSIUM (BEAKER) (test vtuh=622) 4.1 meq/L 3.6-5.5 HGB/HCT (H&H) - STAT [id number] 13:07:00 Test Item Value Reference Range Comments HEMOGLOBIN (BEAKER) (test pgws=042) 14.7 g/dL 13.0-16.8 HEMATOCRIT (BEAKER) (test kzve=834) 43.0 % 40.0-50.0 BLOOD GAS, [id number] 13:07:00 Test Item Value Reference Range Comments PH ARTERIAL (BEAKER) (test pswh=221) 7.24 7.35-7.45 PCO2 ARTERIAL (BEAKER) (test bhnd=015) 66 mmHg 35-45 PO2 ARTERIAL (BEAKER) (test sayd=763) 217 mmHg 80-90 O2 SATURATION ARTERIAL (BEAKER) (test nozk=570) 99.3 % 96.0-97.0 HCO3 ARTERIAL (BEAKER) (test rbhy=331) 28 mmol/L 21-29 BASE EXCESS ARTERIAL (BEAKER) (test lzyi=089) -1.6 mmol/L -2.0-3.0 PATIENT TEMPERATURE (BEAKER) (test huqp=3976) 36.4 C FIO2 (BEAKER) (test sfld=0071) 100.0 % GLUCOSE-STAT [id number] 13:07:00 Test Item Value Reference Range Comments GLUCOSE RANDOM (BEAKER) (test dayp=068) 157 mg/dL 70-110 CALCIUM, [id number] 13:06:00 Test Item Value Reference Range Comments CALCIUM IONIZED (BEAKER) (test nfom=343) 1.13 mmol/L 1.12-1.27 PH, BLOOD (BEAKER) (test inud=3462) 7.23 [id number] 12:49:00 Test Item Value Reference Range Comments ACTIVATED CLOTTING TIME [address] [facility] [address] [facility] ([facility]) (test auhk=456) [facility] [address] POCT-GLUCOSE [id number] 08:01:00 Test Item Value Reference Range Comments POC-GLUCOSE METER ([facility]) 201 mg/dL 70-110 TESTED AT [place] [id number] [facility] (test sifd=0435) [facility] [address] [id number] 06:43:00 Test Item Value Reference Range Comments PARTIAL THROMBOPLASTIN TIME (BEAKER) (test 109.3 seconds 22.5-36.0 aebv=876) CBC W/PLT COUNT & AUTO [id number] 06:24:00 Test Item Value Reference Range Comments WHITE BLOOD CELL COUNT (BEAKER) (test qyru=788) 6.2 K/ L 3.5-10.5 RED BLOOD CELL COUNT (BEAKER) (test ifdw=006) 4.68 M/ L 4.63-6.08 HEMOGLOBIN (BEAKER) (test odwi=738) 15.1 GM/DL 13.7-17.5 HEMATOCRIT (BEAKER) (test lbta=954) 45.4 % 40.1-51.0 MEAN CORPUSCULAR VOLUME (BEAKER) (test rqhc=113) 97.0 fL 79.0-92.2 MEAN CORPUSCULAR HEMOGLOBIN (BEAKER) (test 32.3 pg 25.7-32.2 mhom=121) MEAN CORPUSCULAR HEMOGLOBIN CONC (BEAKER) (test 33.3 GM/DL 32.3-36.5 ujfy=724) RED CELL DISTRIBUTION WIDTH (BEAKER) (test 12.2 % 11.6-14.4 twtr=204) PLATELET COUNT (BEAKER) (test uvny=424) 153 K/CU MM 150-450 MEAN PLATELET VOLUME (BEAKER) (test dwyy=352) 10.5 fL 9.4-12.4 NUCLEATED RED BLOOD CELLS (BEAKER) (test 0 /100 WBC 0-0 yvuo=817) NEUTROPHILS RELATIVE PERCENT (BEAKER) (test 44 % gtjp=798) LYMPHOCYTES RELATIVE PERCENT (BEAKER) (test 39 % qolh=089) MONOCYTES RELATIVE PERCENT (BEAKER) (test 13 % czyf=209) EOSINOPHILS RELATIVE PERCENT (BEAKER) (test 4 % dvag=558) BASOPHILS RELATIVE PERCENT (BEAKER) (test 1 % aozb=629) NEUTROPHILS ABSOLUTE COUNT (BEAKER) (test 2.71 K/ L 1.78-5.38 rckw=969) LYMPHOCYTES ABSOLUTE COUNT (BEAKER) (test 2.38 K/ L 1.32-3.57 ontu=686) MONOCYTES ABSOLUTE COUNT (BEAKER) (test 0.81 K/ L 0.30-0.82 srtg=133) EOSINOPHILS ABSOLUTE COUNT (BEAKER) (test 0.23 K/ L 0.04-0.54 gyxt=976) BASOPHILS ABSOLUTE COUNT (BEAKER) (test 0.04 K/ L 0.01-0.08 zjnl=349) IMMATURE GRANULOCYTES-RELATIVE PERCENT (BEAKER) 0 % 0-1 (test ojiy=1451) [id number] 01:14:00 Test Item Value Reference Range Comments PARTIAL THROMBOPLASTIN TIME (BEAKER) (test 90.5 seconds 22.5-36.0 ttdd=188) 6 hours after starting heparin infusion and as indicated per sliding scalePROTHROMBIN [id number] 01:12:00 Test Item Value Reference Range Comments PROTIME (BEAKER) (test ndjv=293) 14.2 seconds 11.7-14.7 INR (BEAKER) (test rmmz=668) 1.1 <=5.9 RECOMMENDED COUMADIN/WARFARIN INR THERAPY RANGESSTANDARD DOSE: 2.0 - 3.0 Includes: PROPHYLAXIS forvenous thrombosis, systemic embolization; TREATMENT for venous thrombosis and/or pulmonary embolus.HIGH RISK: Target INR is 2.5-3.5 for patients with mechanical heart valves.6 hours after starting heparin infusion and as indicated per sliding [id number] 01:02:00 Test Item Value Reference Range Comments MAGNESIUM (BEAKER) (test 2.9 mg/dL 1.6-2.6 Specimen slightly hemolyzed rclt=082) COMPREHENSIVE METABOLIC [id number] 01:02:00 Test Item Value Reference Range Comments TOTAL PROTEIN (BEAKER) 8.0 gm/dL 6.0-8.3 Specimen slightly (test zfxk=220) hemolyzed ALBUMIN (BEAKER) (test 4.1 g/dL 3.5-5.0 Specimen slightly bobt=9892) hemolyzed ALKALINE PHOSPHATASE 92 U/L 40-150 (BEAKER) (test qols=095) BILIRUBIN TOTAL (BEAKER) 0.5 mg/dL 0.2-1.2 Specimen slightly (test kooa=862) hemolyzed SODIUM (BEAKER) (test 137 meq/L 136-145 ypjy=750) POTASSIUM (BEAKER) (test 3.9 meq/L 3.5-5.1 Specimen slightly dfhc=389) hemolyzed CHLORIDE (BEAKER) (test 101 meq/L 98-107 lgez=032) CO2 (BEAKER) (test 19 meq/L 22-29 vfzx=978) BLOOD UREA NITROGEN 25 mg/dL 7-21 (BEAKER) (test cllh=362) CREATININE (BEAKER) (test 1.44 mg/dL 0.57-1.25 Specimen slightly bqei=715) hemolyzed GLUCOSE RANDOM (BEAKER) 193 mg/dL 70-105 (test ntmv=858) CALCIUM (BEAKER) (test 9.4 mg/dL 8.4-10.2 xdln=171) AST (SGOT) (BEAKER) (test 58 U/L 5-34 Specimen slightly bief=197) hemolyzed ALT (SGPT) (BEAKER) (test 63 U/L 6-55 Specimen slightly socm=332) hemolyzed EGFR (BEAKER) (test 51 mL/min/1.73 sq m ESTIMATED GFR IS NOT pono=7036) ACCURATE CREATININE CLEARANCE IN PREDICTING GLOMERULAR FILTRATION RATE. ESTIMATED GFR IS NOT APPLICABLE FOR DIALYSIS PATIENTS. Specimen markedly lipemicCBC W/PLT COUNT & AUTO [id number] 00:44 :00 Test Item Value Reference Range Comments WHITE BLOOD CELL COUNT (BEAKER) (test viyy=706) 7.3 K/ L 3.5-10.5 RED BLOOD CELL COUNT (BEAKER) (test keuf=153) 4.63 M/ L 4.63-6.08 HEMOGLOBIN (BEAKER) (test kuzi=380) 15.5 GM/DL 13.7-17.5 HEMATOCRIT (BEAKER) (test bdzd=687) 44.7 % 40.1-51.0 MEAN CORPUSCULAR VOLUME (BEAKER) (test sccu=769) 96.5 fL 79.0-92.2 MEAN CORPUSCULAR HEMOGLOBIN (BEAKER) (test 33.5 pg 25.7-32.2 lkhq=961) MEAN CORPUSCULAR HEMOGLOBIN CONC (BEAKER) (test 34.7 GM/DL 32.3-36.5 voqg=395) RED CELL DISTRIBUTION WIDTH (BEAKER) (test 12.2 % 11.6-14.4 kdab=546) PLATELET COUNT (BEAKER) (test edxm=005) 192 K/CU MM 150-450 MEAN PLATELET VOLUME (BEAKER) (test rxvt=961) 10.6 fL 9.4-12.4 NUCLEATED RED BLOOD CELLS (BEAKER) (test 0 /100 WBC 0-0 knae=556) NEUTROPHILS RELATIVE PERCENT (BEAKER) (test 48 % iwwl=037) LYMPHOCYTES RELATIVE PERCENT (BEAKER) (test 36 % qvau=714) MONOCYTES RELATIVE PERCENT (BEAKER) (test 12 % ayzy=930) EOSINOPHILS RELATIVE PERCENT (BEAKER) (test 3 % fzew=293) BASOPHILS RELATIVE PERCENT (BEAKER) (test 1 % zmis=861) NEUTROPHILS ABSOLUTE COUNT (BEAKER) (test 3.46 K/ L 1.78-5.38 vsjk=894) LYMPHOCYTES ABSOLUTE COUNT (BEAKER) (test 2.65 K/ L 1.32-3.57 wenp=976) MONOCYTES ABSOLUTE COUNT (BEAKER) (test 0.84 K/ L 0.30-0.82 ndxm=763) EOSINOPHILS ABSOLUTE COUNT (BEAKER) (test 0.23 K/ L 0.04-0.54 yfhy=180) BASOPHILS ABSOLUTE COUNT (BEAKER) (test 0.06 K/ L 0.01-0.08 mdhs=408) IMMATURE GRANULOCYTES-RELATIVE PERCENT (BEAKER) 1 % 0-1 (test kzcz=1583) POCT-GLUCOSE [id number] 21:33:00 Test Item Value Reference Range Comments POC-GLUCOSE METER (BEAKER) 286 mg/dL 70-110 TESTED AT [address] (test hlye=3504) [place] [address] [id number] 19:12:00 Test Item Value Reference Range Comments PARTIAL THROMBOPLASTIN TIME (BEAKER) (test 64.6 seconds 22.5-36.0 mtrv=442) POCT-GLUCOSE [id number] 18:10:00 Test Item Value Reference Range Comments POC-GLUCOSE METER (BEAKER) 165 mg/dL 70-110 TESTED AT [address] (test lalj=4948) [place] [address] POCT-GLUCOSE [id number] 12:50:00 Test Item Value Reference Range Comments POC-GLUCOSE METER (BEAKER) 152 mg/dL 70-110 TESTED AT [address] (test kvcn=2660) [place] [address] HEMOGLOBIN [id number] 10:06:00 Test Item Value Reference Range Comments HEMOGLOBIN A1C (BEAKER) (test orwz=493) 7.0 % 4.3-6.1 [id number] 09:01:00 Test Item Value Reference Range Comments PARTIAL THROMBOPLASTIN TIME (BEAKER) (test 68.3 seconds 22.5-36.0 xqtr=456) PLATELET AGGREGATION: FUNCTION [id number] 08:44:00 Test Item Value Reference Range Comments WEAK ADP RESULT(BEAKER) (test 84 % 60-91 hgbg=8113) PLATELET FUNCTION SCREEN 60-100% indicates normal INTERP (BEAKER) (test platelet function tlmc=9171) SPYP-MACFLQCFTMO-6960 (BEAKER) Cindy Velasquez MD (test drnt=6606) (electronic signature) PLATELET COUNT AGG (BEAKER) 175 K/CU MM 150-450 (test xfha=3330) Platelet Function Screen results may be falsely low with platelet counts<100, 000/cu mm.POCT-GLUCOSE [id number] 08:23:00 Test Item Value Reference Range Comments POC-GLUCOSE METER (BEAKER) 185 mg/dL 70-110 TESTED AT [address] (test cqsh=1022) [place] [address] RAD, CHEST, 1 VIEW, NON [id number] 04:51:00Reason for exam:-> dyspneaShould this be performed [...] Verified Date/Time: 07/05/2018 04:51 :23 Reading Location: [address] Reading Room B-TYPE NATRIURETIC FACTOR (BNP)2018-07-05 02:51:00 Test Item Value Reference Range Comments B-TYPE NATRIURETIC PEPTIDE (BEAKER) (test ayum=555) 44 pg/mL 0-100 [id number] 02:44:00 Test Item Value Reference Range Comments MAGNESIUM (BEAKER) (test frrq=996) 2.3 mg/dL 1.6-2.6 BASIC METABOLIC [id number] 02:44:00 Test Item Value Reference Range Comments SODIUM (BEAKER) (test 139 meq/L 136-145 zvop=065) POTASSIUM (BEAKER) (test 3.7 meq/L 3.5-5.1 mjsg=852) CHLORIDE (BEAKER) (test 103 meq/L 98-107 xxfj=341) CO2 (BEAKER) (test 26 meq/L 22-29 jafw=636) BLOOD UREA NITROGEN 21 mg/dL 7-21 (BEAKER) (test uxrh=541) CREATININE (BEAKER) (test 1.24 mg/dL 0.57-1.25 elnc=833) GLUCOSE RANDOM (BEAKER) 171 mg/dL 70-105 (test yggd=516) CALCIUM (BEAKER) (test 9.8 mg/dL 8.4-10.2 vckv=827) EGFR (BEAKER) (test 61 mL/min/1.73 sq m ESTIMATED GFR IS NOT mdtd=0969) ACCURATE CREATININE CLEARANCE IN PREDICTING GLOMERULAR FILTRATION RATE. ESTIMATED GFR IS NOT APPLICABLE FOR DIALYSIS PATIENTS. [id number] 02:42:00 Test Item Value Reference Range Comments PARTIAL THROMBOPLASTIN TIME (BEAKER) (test 63.2 seconds 22.5-36.0 jdlk=333) CBC W/PLT COUNT & AUTO [id number] 02:26:00 Test Item Value Reference Range Comments WHITE BLOOD CELL COUNT (BEAKER) (test gwfk=951) 6.9 K/ L 3.5-10.5 RED BLOOD CELL COUNT (BEAKER) (test cxif=727) 4.85 M/ L 4.63-6.08 HEMOGLOBIN (BEAKER) (test obhc=656) 15.6 GM/DL 13.7-17.5 HEMATOCRIT (BEAKER) (test uiam=314) 47.6 % 40.1-51.0 MEAN CORPUSCULAR VOLUME (BEAKER) (test aymt=962) 98.1 fL 79.0-92.2 MEAN CORPUSCULAR HEMOGLOBIN (BEAKER) (test 32.2 pg 25.7-32.2 bfdj=913) MEAN CORPUSCULAR HEMOGLOBIN CONC (BEAKER) (test 32.8 GM/DL 32.3-36.5 lvgu=085) RED CELL DISTRIBUTION WIDTH (BEAKER) (test 12.4 % 11.6-14.4 fbfw=298) PLATELET COUNT (BEAKER) (test nkjb=153) 175 K/CU MM 150-450 MEAN PLATELET VOLUME (BEAKER) (test vetk=281) 10.1 fL 9.4-12.4 NUCLEATED RED BLOOD CELLS (BEAKER) (test 0 /100 WBC 0-0 hcmn=242) NEUTROPHILS RELATIVE PERCENT (BEAKER) (test 50 % jjbj=590) LYMPHOCYTES RELATIVE PERCENT (BEAKER) (test 35 % ssaz=764) MONOCYTES RELATIVE PERCENT (BEAKER) (test 12 % wdzb=906) EOSINOPHILS RELATIVE PERCENT (BEAKER) (test 3 % haay=522) BASOPHILS RELATIVE PERCENT (BEAKER) (test 1 % dwnb=921) NEUTROPHILS ABSOLUTE COUNT (BEAKER) (test 3.44 K/ L 1.78-5.38 kdwb=153) LYMPHOCYTES ABSOLUTE COUNT (BEAKER) (test 2.38 K/ L 1.32-3.57 mlqk=698) MONOCYTES ABSOLUTE COUNT (BEAKER) (test 0.81 K/ L 0.30-0.82 zpwk=778) EOSINOPHILS ABSOLUTE COUNT (BEAKER) (test 0.19 K/ L 0.04-0.54 ezjo=927) BASOPHILS ABSOLUTE COUNT (BEAKER) (test 0.06 K/ L 0.01-0.08 msif=279) IMMATURE GRANULOCYTES-RELATIVE PERCENT (BEAKER) 0 % 0-1 (test pnpt=1025) POCT-GLUCOSE [id number] 21:12:00 Test Item Value Reference Range Comments POC-GLUCOSE METER (BEAKER) 204 mg/dL 70-[address] [facility] [address] [facility] (test ustr=0189) [facility] [address] TSH/FREE T4 IF [id number] 19:43:00 Test Item Value Reference Range Comments THYROID STIMULATING HORMONE (BEAKER) (test 4.44 uIU/mL 0.35-4.94 fwga=628) LIPID [id number] 19:23:00 Test Item Value Reference Range Comments TRIGLYCERIDES (BEAKER) (test nxmx=541) 458 mg/dL CHOLESTEROL (BEAKER) (test uyck=603) 285 mg/dL HDL CHOLESTEROL (BEAKER) (test qlgx=384) 42 mg/dL Calculated LDL not valid if triglyceride >400 mg/dLTriglyceride Reference Range: Low Risk <150 Borderline 150-199 High Risk 200-499 Very High Risk >=500Cholesterol Reference Range: Low Risk <200 Borderline 200-239 High Risk >240HDL Cholesterol Reference Range: Low Risk >=60 High Risk <40LDL Cholesterol ReferenceRange: Optimal <100 Near Optimal 100-129 Borderline 130-159 High 160-189 Very High >=190HEPATIC FUNCTION [id number] 19:23:00 Test Item Value Reference Range Comments TOTAL PROTEIN (BEAKER) (test rndq=578) 7.5 gm/dL 6.0-8.3 ALBUMIN (BEAKER) (test tzol=3491) 4.3 g/dL 3.5-5.0 BILIRUBIN TOTAL (BEAKER) (test rxza=140) 0.9 mg/dL 0.2-1.2 BILIRUBIN DIRECT (BEAKER) (test ejnn=592) 0.3 mg/dL 0.1-0.5 ALKALINE PHOSPHATASE (BEAKER) (test zsia=096) 89 U/L 40-150 AST (SGOT) (BEAKER) (test fryx=356) 76 U/L 5-34 ALT (SGPT) (BEAKER) (test pvon=606) 72 U/L 6-55 [id number] 19:21:00 Test Item Value Reference Range Comments PROTIME (BEAKER) (test lufz=006) 13.6 seconds 11.7-14.7 INR (BEAKER) (test zmzl=161) 1.0 <=5.9 PARTIAL THROMBOPLASTIN TIME (BEAKER) (test 28.0 seconds 22.5-36.0 vnly=714) RECOMMENDED COUMADIN/WARFARIN INR THERAPY RANGESSTANDARD DOSE: 2.0 - 3.0 Includes: PROPHYLAXIS forvenous thrombosis, systemic embolization; TREATMENT for venous thrombosis and/or pulmonary embolus.HIGH RISK: Target INR is 2.5-3.5 for patients with mechanical heart valves.CBC W/PLT COUNT & AUTO [id number] 19:05:00 Test Item Value Reference Range Comments WHITE BLOOD CELL COUNT (BEAKER) (test gkzz=454) 6.6 K/ L 3.5-10.5 RED BLOOD CELL COUNT (BEAKER) (test anqc=392) 4.74 M/ L 4.63-6.08 HEMOGLOBIN (BEAKER) (test xvzm=891) 15.3 GM/DL 13.7-17.5 HEMATOCRIT (BEAKER) (test zzup=933) 46.0 % 40.1-51.0 MEAN CORPUSCULAR VOLUME (BEAKER) (test atse=437) 97.0 fL 79.0-92.2 MEAN CORPUSCULAR HEMOGLOBIN (BEAKER) (test 32.3 pg 25.7-32.2 ttso=985) MEAN CORPUSCULAR HEMOGLOBIN CONC (BEAKER) (test 33.3 GM/DL 32.3-36.5 uetz=855) RED CELL DISTRIBUTION WIDTH (BEAKER) (test 12.4 % 11.6-14.4 wdsm=253) PLATELET COUNT (BEAKER) (test xvqn=279) 165 K/CU MM 150-450 MEAN PLATELET VOLUME (BEAKER) (test dxvo=752) 9.8 fL 9.4-12.4 NUCLEATED RED BLOOD CELLS (BEAKER) (test 0 /100 WBC 0-0 coze=108) NEUTROPHILS RELATIVE PERCENT (BEAKER) (test 50 % ymwu=564) LYMPHOCYTES RELATIVE PERCENT (BEAKER) (test 33 % crou=289) MONOCYTES RELATIVE PERCENT (BEAKER) (test 13 % fvta=546) EOSINOPHILS RELATIVE PERCENT (BEAKER) (test 3 % eovw=466) BASOPHILS RELATIVE PERCENT (BEAKER) (test 1 % xpkh=662) NEUTROPHILS ABSOLUTE COUNT (BEAKER) (test 3.27 K/ L 1.78-5.38 jgaf=964) LYMPHOCYTES ABSOLUTE COUNT (BEAKER) (test 2.20 K/ L 1.32-3.57 pavf=159) MONOCYTES ABSOLUTE COUNT (BEAKER) (test 0.88 K/ L 0.30-0.82 ajab=969) EOSINOPHILS ABSOLUTE COUNT (BEAKER) (test 0.17 K/ L 0.04-0.54 rsyq=573) BASOPHILS ABSOLUTE COUNT (BEAKER) (test 0.04 K/ L 0.01-0.08 tonp=538) IMMATURE GRANULOCYTES-RELATIVE PERCENT (BEAKER) 0 % 0-1 (test mklz=7627)
[2019-01-10 09:24] LABS: BUN Blood Urea Nitrogen 19 mg/dL (7-18); Bicarbonate 23 mmol/L (21-32); Glucose Level 114 mg/dL (74-106); NT PRO-BNP 69 pg/mL (<125); Potassium 4.1 mmol/L (3.5-5.1); Sodium Level 141 mmol/L (136-145); Troponin (Emerg Dept Use Only) < 0.02 ng/mL (0.0-0.045)
--- NOTE | 2019-01-10 09:30 | EDPHYS ---
Physician Documentation [facility] Name: Drake Vallejo Age: 53 yrs Sex: Male : 1965 Arrival Date: 01/10/2019 Time: 08:24 Bed 8 Private MD: ED Physician Christiano Red HPI: 01/10 09:10 This 53 yrs old Male presents to ER via EMS with complaints of Chest Pain > rn 30 y/o. 09:10 The patient or guardian reports chest pain that is located primarily in the substernal rn area. Onset: 1 hour(s) ago. The pain does not radiate. The chest pain is described as a heaviness. Duration: The patient or guardian reports a single episode, that is still ongoing. Modifying factors: The symptoms are alleviated by nothing. the symptoms are aggravated by nothing. Severity of pain: At its worst the pain was moderate in the emergency department the pain has improved. The patient has experienced similar episodes in the past. 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 Sees Dr. Willoughby. Supposed to take nitro prn, didn't take nitro, given aspirin by EMS, improved but not resolved chest pain.. Historical: - Allergies: 08:30 hydrocet; tw2 - Home Meds: 08:30 aspirin 81 mg Oral TbEC 1 tab once daily [Active]; lisinopril 2.5 mg Oral tab 1 tab tw2 once daily [Active]; metformin 500 mg Oral tr24 1 tab once daily [Active]; glimepiride 2 mg Oral tab 1 tab once daily [Active]; citalopram 20 mg tab 1 tab once daily [Active]; Multiple Vitamins oral tab [Active]; - PMHx: 08:30 CAD; Depression; Diabetes - NIDDM; Hypertension; Myocardial infarction; tw2 - PSHx: 08:30 CABG; Heart stents; tw2 11:21 Bypass; tw2 - Immunization history:: Adult Immunizations. - Social history:: Smoking status: . - Ebola Screening: : Patient denies travel to an Ebola-affected area in the 21 days before illness onset. - Family history:: pertinent for heart disease. - Hospitalizations: : No recent hospitalization is reported. ROS: 09:10 Constitutional: Negative for fever, chills, and weight loss, Eyes: Negative for injury, rn pain, redness, and discharge, Neck: Negative for injury, pain, and swelling, Cardiovascular: Negative for palpitations, and edema, Respiratory: Negative for shortness of breath, cough, wheezing, and pleuritic chest pain, Abdomen/GI: + nausea, no vomiting, neg for abd pain. Back: Negative for injury and pain, MS/Extremity: Negative for injury and deformity, Skin: Negative for injury, rash, and discoloration, Neuro: Negative for headache, weakness, numbness, tingling, and seizure. Exam: 09:10 Constitutional: This is a well developed, well nourished patient who is awake, alert, rn and in no acute distress. Head/Face: Normocephalic, atraumatic. Eyes: Pupils equal round and reactive to light, extra-ocular motions intact. Lids and lashes normal. Conjunctiva and sclera are non-icteric and not injected. Cornea within normal limits. Periorbital areas with no swelling, redness, or edema. Cardiovascular: Regular, no murmur Respiratory: Lungs have equal breath sounds bilaterally, clear to auscultation. No increased work of breathing, no retractions or nasal flaring. Abdomen/GI: soft, non-tender MS/ Extremity: Pulses equal, no cyanosis. Neurovascular intact. Full, normal range of motion. Equal circumference. Neuro: Awake and alert, GCS 15, oriented to person, place, time, and situation. Cranial nerves II-XII grossly intact. Motor strength 5/5 in all extremities. Sensory grossly intact. 11:23 ECG was reviewed by the Attending Physician. rn Vital Signs: 08:27 BP 119 / 94; Pulse 72; Resp 20; Temp 97.8(TE); Pulse Ox 98% on R/A; Weight 113.4 kg tw2 (R); Height 5 ft. 7 in. (170.18 cm) (R); Pain 3/10; 09:27 BP 114 / 69; Pulse 68; Resp 17; Pulse Ox 95% on R/A; Pain 0/10; tw2 10:17 BP 107 / 77; Pulse 65; Resp 15; Pulse Ox 100% on R/A; Pain 0/10; em1 08:27 Body Mass Index 39.16 (113.40 kg, 170.18 cm) tw2 MDM: 08:25 Patient medically screened. rn 09:29 Differential diagnosis: acute myocardial infarction, coronary artery disease rn costochondritis, esophagitis, pleurisy, pneumonia, pneumothorax, stable angina, unstable angina. The patient was not given aspirin in the Emergency Department. Administered by EMS. Data reviewed: vital signs, nurses notes, lab test result(s), EKG, radiologic studies, plain films, and as a result, I will admit patient. Test interpretation: by ED physician or midlevel provider: plain radiologic studies, CXR negative for acute findings. Counseling: I had a detailed discussion with the patient and/or guardian regarding: the historical points, exam findings, and any diagnostic results supporting the discharge/admit diagnosis, lab results, radiology results, the need for further work-up and treatment in the hospital. 01/10 08:26 Order name: Basic Metabolic Panel; Complete Time: 09:26 rn 01/10 08:26 Order name: CBC with Diff; Complete Time: :01/10 08:26 Order name: NT PRO-BNP; Complete Time: 09:01/10 08:26 Order name: Troponin (emerg Dept Use Only); Complete Time: 09:01/10 08:26 Order name: XRAY Chest (1 view); Complete Time: 08:54 01/10 08:26 Order name: EKG; Complete Time: 08:27 01/10 08:26 Order name: Cardiac monitoring; Complete Time: 08:39 01/10 08:26 Order name: EKG - Nurse/Tech; Complete Time: 08:39 01/10 08:26 Order name: IV Saline Lock; Complete Time: 08:39 01/10 08:26 Order name: Labs collected and sent; Complete Time: 08:39 01/10 08:26 Order name: O2 Per Protocol; Complete Time: 08:39 01/10 10:11 Order name: Diet Heart Healthy; Complete Time: 10:12 iw 01/10 08:26 Order name: O2 Sat Monitoring; Complete Time: 08:39 rn EC:23 Rate is 63 beats/min. Rhythm is regular. QRS [place] is Normal. PA interval is normal. QRS rn interval is normal. QT interval is normal. No Q waves. T waves are Normal. No ST changes noted. Clinical impression: NSR w/ Non-specific ST/T Changes. Interpreted by me. Reviewed by me. Administered Medications: 08:35 Not Given (pt received by EMS in transport): Aspirin Chewable Tablet 324 mg PO once; 81 tw2 mg tablets x 4 08:38 Drug: Nitroglycerin 0.4 mg Route: Sublingual; tw2 09:38 Follow up: Response: No adverse reaction; Pain is decreased tw2 Disposition: 01/10/19 09:30 Hospitalization ordered by Bulmaro Huertas for Observation. Preliminary diagnosis is Chest pain, unspecified. - Bed requested for Telemetry/MedSurg (observation). - Status is Observation. tw2 - Condition is Stable. - Problem is new. - Symptoms have improved. UTI on Admission? No Signatures: Dispatcher [employer] EDMS Tia Johnson Steven, RN RN sg Christiano Red MD MD rn Wise, Tara, RN RN tw2 Corrections: (The following items were deleted from the chart) 11:00 09:30 Hospitalization Ordered by Bulmaro Huertas MD for Observation. Preliminary diagnosis bd is Chest pain, unspecified. Bed requested for Telemetry/MedSurg (observation). Status is Observation. Condition is Stable. Problem is new. Symptoms have improved. UTI on Admission? No. rn 11:26 11:00 01/10/2019 09:30 Hospitalization Ordered by Bulmaro Huertas MD for Observation. sg Preliminary diagnosis is Chest pain, unspecified. Bed requested for Telemetry/MedSurg (observation). Status is Observation. Condition is Stable. Problem is new. Symptoms have improved. UTI on Admission? No. bd 11:31 11:26 01/10/2019 09:30 Hospitalization Ordered by Bulmaro Huertas MD for Observation. tw2 Preliminary diagnosis is Chest pain, unspecified. Bed requested for Telemetry/MedSurg (observation). Status is Observation. Condition is Stable. Problem is new. Symptoms have improved. UTI on Admission? No. sg
--- NOTE | 2019-01-10 09:30 | ER ---
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 Transition of care: patient was not received from another setting of care. Onset of symptoms was January 10, 2019. Risk Assessment: Do you want to hurt yourself or someone else? Patient reports no desire to harm self or others. Initial Sepsis Screen: Does the patient meet any 2 criteria? No. Patient's initial sepsis screen is negative. Does the patient have a suspected source of infection? No. Patient's initial sepsis screen is negative. Care prior to arrival: Medication(s) given: ASA, 324 mg. 08:16 Method Of Arrival: EMS: [facility] tw2 08:16 Acuity: TERI 3 tw2 Triage Assessment: 08:24 General: Appears in no apparent distress. obese, Behavior is calm, cooperative, tw2 appropriate for age. General: Reports "i noticed a few days ago that i couldn't lay on my left side i got real short of breath, so i took my fluid pill for 2 days and it got better but then i stopped taking it'. Pain: Complains of pain in chest. EENT: No signs and/or symptoms were reported regarding the EENT system. Neuro: Level of Consciousness is awake, alert, obeys commands, Oriented to person, place, time, situation. Cardiovascular: Reports chest pain, Denies shortness of breath, Heart tones S1 S2 Patient's skin is warm and dry. Respiratory: Airway is patent Respiratory effort is even, unlabored, Respiratory pattern is regular, symmetrical, Breath sounds are clear bilaterally. GI: Abdomen is round non-distended, obese, Bowel sounds present X 4 quads. : No signs and/or symptoms were reported regarding the genitourinary system. Derm: No signs and/or symptoms reported regarding the dermatologic system. Musculoskeletal: Range of motion: intact in all extremities. Historical: - Allergies: 08:30 hydrocet; tw2 - Home Meds: 08:30 aspirin 81 mg Oral TbEC 1 tab once daily [Active]; lisinopril 2.5 mg Oral tab 1 tab tw2 once daily [Active]; metformin 500 mg Oral tr24 1 tab once daily [Active]; glimepiride 2 mg Oral tab 1 tab once daily [Active]; citalopram 20 mg tab 1 tab once daily [Active]; Multiple Vitamins oral tab [Active]; - PMHx: 08:30 CAD; Depression; Diabetes - NIDDM; Hypertension; Myocardial infarction; tw2 - PSHx: :30 CABG; Heart stents; tw2 11:21 Bypass; tw2 - Immunization history:: Adult Immunizations. - Social history:: Smoking status: . - Ebola Screening: : Patient denies travel to an Ebola-affected area in the 21 days before illness onset. - Family history:: pertinent for heart disease. - Hospitalizations: : No recent hospitalization is reported. Screenin:33 Abuse screen: Denies threats or abuse. Nutritional screening: No deficits noted. tw2 Tuberculosis screening: No symptoms or risk factors identified. Fall Risk None identified. Assessment: 08:27 Reassessment: Dr. Red at bedside at this time. See triage assessment. tw2 09:27 Reassessment: Patient appears in no apparent distress at this time. No changes from tw2 previously documented assessment. Patient and/or family updated on plan of care and expected duration. Pain level reassessed. Patient is alert, oriented x 3, equal unlabored respirations, skin warm/dry/pink. Vital Signs: 08:27 BP 119 / 94; Pulse 72; Resp 20; Temp 97.8(TE); Pulse Ox 98% on R/A; Weight 113.4 kg tw2 (R); Height 5 ft. 7 in. (170.18 cm) (R); Pain 3/10; 09:27 BP 114 / 69; Pulse 68; Resp 17; Pulse Ox 95% on R/A; Pain 0/10; tw2 10:17 BP 107 / 77; Pulse 65; Resp 15; Pulse Ox 100% on R/A; Pain 0/10; em1 08:27 Body Mass Index 39.16 (113.40 kg, 170.18 cm) tw2 ED Course: 08:24 Patient arrived in ED. bd 08:24 Amanda Huerta RN is Primary Nurse. tw2 08:25 Christiano Red MD is Attending Physician. rn 08:26 Triage completed. tw2 08:27 Arm band placed on. EKG completed in triage. Results shown to MD. tw2 08:27 Bed in low position. Call light in reach. groundwater monitoring technician on. Pulse ox on. NIBP on. tw2 08:44 XRAY Chest (1 view) In Process Unspecified. EDMS 08:51 Lab(s) recollected, by me, sent to lab. EKG done, by ED staff, reviewed by Christiano ugalde MD. Inserted saline lock: 20 gauge in right forearm, using aseptic technique. Blood collected. 09:30 Bulmaro Huertas MD is Hospitalizing Provider. rn 11:15 No provider procedures requiring assistance completed. Patient admitted, IV remains in tw2 place. Administered Medications: 08:35 Not Given (pt received by EMS in transport): Aspirin Chewable Tablet 324 mg PO once; 81 tw2 mg tablets x 4 08:38 Drug: Nitroglycerin 0.4 mg Route: Sublingual; tw2 09:38 Follow up: Response: No adverse reaction; Pain is decreased tw2 Outcome: 09:30 Decision to Hospitalize by Provider. rn 11:31 Patient left the ED. tw2 11:31 Admitted to Med/surg accompanied by tech, via wheelchair, room 405. tw2 11:31 Condition: stable 11:31 Instructed on the need for admit. Signatures: Dispatcher [employer] EDMS Tia Johnson Christiano Red MD MD rn Martinez, Eric em1 Amanda Huerta RN RN tw2 Corrections: (The following items were deleted from the chart) 09:38 09:27 BP 114 / 69; Pulse 68bpm; Resp 17bpm; Pulse Ox 95% RA; tw2 tw2 09:38 09:27 BP 114 / 69; Pulse 68bpm; Resp 17bpm; Pulse Ox 95% RA; Pain 3/10; tw2 tw2
--- NOTE | 2019-01-10 10:52 | EKG ---
Test Date: 2019-01-10 Test Time: 08:20:42 [place]: NAUN MEASUREMENT RESULTS: Intervals: Rate: 63 DC: 156 QRSD: 102 QT: 402 QTc: 411 [place]: P: 49 DC: 156 QRS: 2 T: 55 INTERPRETIVE STATEMENTS: Normal sinus rhythm Incomplete right bundle branch block Septal infarct, age undetermined Abnormal ECG Compared to ECG 08/11/2018 19:49:02 Incomplete right bundle-branch block now present Myocardial infarct finding still present Electronically Signed On 01-10-19 10:51:54 CDT by Long Connolly
[2019-01-10 11:46] VITALS: BMI 34.8
[2019-01-10] MEDS ORDERED: MORPHINE 2 MG/ML SYR IV PRN (11:47)
[2019-01-10] MEDS ORDERED: NITROGLYCERIN 0.4 MG/TAB SL PRN (11:47)
[2019-01-10] MEDS ORDERED: ZOLPIDEM TARTRATE 5 MG TABLET PO PRN (11:47)
[2019-01-10] MEDS ORDERED: ACETAMINOPHEN 500 MG TAB PO PRN (11:47)
--- NOTE | 2019-01-10 15:28 | ECHO ---
HEIGHT: 5 ft 11 in WEIGHT: 250 lb 0 oz DATE OF STUDY: 01/10/[address]: Bulmaro Huertas MD 2-DIMENSIONAL: YES M.MODE: YES DOPPLER: YES COLOR FLOW: YES TDS: NO PORTABLE: NO DEFINITY: NO BUBBLE STUDY: NO DIAGNOSIS: UNSTABLE ANGINA CARDIAC HISTORY: CATHERIZATION: YES SURGERY: YES PROSTHETIC VALVE: NO PACEMAKER: NO MEASUREMENTS (cm) DIASTOLIC (NORMALS) SYSTOLIC (NORMALS) IVSd 1.0 (0.6-1.2) LA Diam 4.0 (1.9-4.0) LVEF 57% LVIDd 5.3 (3.5-5.7) LVIDs 3.7 (2.0-3.5) %FS 30% LVPWd 0.9 (0.6-1.2) Ao Diam 3.2 (2.0-3.7) 2 DIMENSIONAL ASSESSMENT: RIGHT ATRIUM: NORMAL LEFT ATRIUM: DILATED RIGHT VENTRICLE: NORMAL LEFT VENTRICLE: NORMAL TRICUSPID VALVE: NORMAL MITRAL VALVE: NORMAL PULMONIC VALVE: NORMAL AORTIC VALVE: NORMAL PERICARDIAL EFFUSION: NONE AORTIC ROOT: NORMAL LEFT VENTRICULAR WALL MOTION: NORMAL DOPPLER/COLOR FLOW: NORMAL COMMENTS: NORMAL LEFT VENTRICULAR EJECTION FRACTION. DILATED LEFT ATRIUM. OTHERWISE NORMAL 2D ECHOCARDIOGRAM WITH DOPPLER. TECHNOLOGIST: Eleno LAKE
[2019-01-10] MEDS ORDERED: GLUCAGON 1 MG/VIAL IM PRN (15:38)
[2019-01-10] MEDS ORDERED: D50W 25 GM/50 ML SYRINGE IV PRN (15:38)
[2019-01-10] MEDS: INSULIN -REGULAR HUMAN 50 UNIT/0.5 ML ML SQ SCH ×2 (15:58→21:00)
[2019-01-10] MEDS: ENOXAPARIN 40 MG/0.4 ML SQ SCH (16:12)
[2019-01-10 16:29] LABS: Urine Appearance CLEAR; Urine Bilirubin NEGATIVE (NEG); Urine Blood NEGATIVE (NEG); Urine Color YELLOW; Urine Glucose NEGATIVE (NEG); Urine Protein NEGATIVE (NEG); Urine pH 5.5 (5.0-7.0)
[2019-01-10 17:09] LABS: Urine Microscopic Reflex NO UMIC
[2019-01-10] MEDS: CARVEDILOL 25 MG TAB PO SCH (17:56)
--- NOTE | 2019-01-10 18:50 | CON ---
History Of Present Illness: Mr. Vallejo came to the hospital with chest pain. So far, EKGs and enzymes are normal. Mr. Vallejo has a history of coronary heart disease. He had bypass surgery in June 2018 . This is his second time to be in the hospital with chest pain. This time it occurred while he was sitting, playing video game, sitting in a truck, waiting for it to be on loaded. 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 He started coughing just to see if it would help the pain go away. It helped the p ain go away, then the pain came back. He is not having pain. Allergies: THE PATIENT HAS NO ALLERGIES. Medications: Outpatient medications have been multivitamin, nitroglycerin as needed, glimepiride, at orvastatin aspirin, citalopram, ascorbic acid, lisinopril, famotidine, and metformin. Past Medical History: He has underlying diabetes, obesity, coronary heart disease, hypertension, dys lipidemia. Social History: Uses no tobacco now. Physical Examination: Vital Signs: He is 5 feet 11 inches, 250 pounds. General: Obese, alert, oriented, pleasant, not in distress. Lungs: Clear. Cardiac: Normal. No friction rub, murmur or gallop. Abdomen: Soft. Extremities: Palpable pulses. No cyanosis, clubbing, or edema. Laboratory Data: His electrocardiogram shows sinus rhythm. There is an incomplete right bundle, sep paresh infarct. All these findings are unchanged since July when he was in our hospital with chest pain also. Impression: The patient's chest pain is probably not a sign of the graft occlusion. That would have been more dramatic. His only bypass is of the left internal mammary. He may have disease in other a rteries. We will do a stress test and see if we feel the need to do a heart catheterization to figur e this out. He has a history of atrial fibrillation perioperatively. He is now not on antiarrhythmi c drugs. He could have had atrial fibrillation, which resolved by the time he got here, in which gamaliel e we would probably want to resume the amiodarone as an outpatient. ALTHEA/KBOE Voice ID: [id number] Report ID: [id number]
[2019-01-10] MEDS ORDERED: ATORVASTATIN 80 MG TAB PO SCH (21:00)
[2019-01-11] MEDS: CARVEDILOL 25 MG TAB PO SCH ×2 (01:06→17:40)
--- NOTE | 2019-01-11 01:54 | HP ---
Date of Admission: 01/10/2019 Chief Complaint: Chest pain. Consultants: Dr. Connolly with Cardiology. History Of Present Illness: The patient is a 53-year-old male with past medical history of coronary artery disease status post CABG, 1-vessel disease done in June; hypertension; diabetes; hyperlipidemia; BPH, who was in his usual state of health until day of admission when the patient had sudden onset of substernal chest pain at rest. The pain was radiating to his arms with numbness and tingling. The patient also reported some nausea but no vomiting, diaphoresis or palpitations. The patient came into the ER for further evaluation. His symptoms were constant, moderate, progressively worsening. In the ER, he received nitroglycerin sublingual, which he has not been taking at home and this resolved his pain. Initial workup showed negative cardiac enzymes and EKG. Chest x-ray was clear. The patient was then referred for admission to rule out ACS. Past Medical History: Coronary artery disease status post CABG, 1-vessel disease; hypertension; hyperlipidemia; diabetes mellitus type 2. He also has BPH. Surgical History: Coronary artery bypass graft, cardiac catheterization. The patient has had previous cardiac stents and right knee repair. Allergies: NO KNOWN DRUG ALLERGIES. Medications: List reviewed. Social History: The patient denies any current tobacco use. Does have significant history of tobacco use in the past. No illicit drug use or alcohol use. The patient is . Family History: Mother has heart disease, diabetes and stroke. Father has cancer. Review of Systems: Ten-point system reviewed. Negative except as per HPI. Physical Examination: Vital Signs: Temperature 97.8, heart rate 57, blood pressure 100/62, respirations 16, O2 of 95% on room air. General: Awake, alert, oriented x3. No acute distress. Obese male. HEENT: Normocephalic, atraumatic. PERRLA. EOMI. Moist mucous membranes. Oropharynx is clear. Poor dentition. Conjunctivae are anicteric. Neck: Supple. No JVD. Trachea midline. CV: S1, S2. Regular rate and rhythm. Peripheral pulses present. Respiratory: Moving air well bilaterally. No wheezing or stridor. No use of accessory muscles. Gastrointestinal: Abdomen is soft, nontender, nondistended. Positive bowel sounds. No guarding or rigidity. Extremities: No clubbing, cyanosis, or edema. No calf tenderness. Neuro: Cranial nerves 2 through 12 intact grossly. No focal neurological deficit. Speech is normal. Skin: No rashes. Normal skin turgor. Psych: Mood is okay. Affect is full. Insight and judgment are good. Laboratory Data: WBC 6.1, H and H 15.4 and 46.5, platelets 166. Sodium 141, potassium 4.1, chloride 114, CO2 of 23, BUN 19, creatinine of 1.01, glucose 114 , calcium 9.3. Troponin less than 0.02. BNP 69. Imaging Studies: Chest x-ray shows no acute intrathoracic process. EKG shows normal sinus rhythm, rate of 66, incomplete right bundle branch block, septal infarct age undetermined. Assessment: A 53-year-old male with: 1. Unstable angina. The patient has history of CABG and previous stents. We will obtain serial cardiac enzymes and EKG, consult Cardiology, obtain echocardiogram. The patient has not followed up since his bypass surgery. The patient is due to follow up next month with Dr. Willoughby. 2. Coronary artery disease, [place] artery and [place] heart with angina. Continue aspirin. 3. Essential hypertension. We will resume home medications. 4. Diabetes mellitus type 2, non-insulin requiring with hyperglycemia. We will continue sliding scale insulin and monitor blood glucose levels. 5. Hyperlipidemia. Continue statin. 6. Obesity, BMI 34. 7. Benign prostatic hyperplasia, stable. Plan: Admit the patient to Med-Surg, [facility] as observation. PREET Voice ID: [id number] MTDD
[2019-01-11 06:37] LABS: Absolute Monocytes 0.8 K/uL (0.1-1.3); Absolute Neutrophil 3.8 K/uL (1.8-8.0); Basophils % 0.6 % (0-1.3); Eosinophils % 2.9 % (0-4.4); Hematocrit 46.3 % (39.6-49.0); Lymphocytes % 28.5 % (15.3-44.8); MPV 8.5 fL (7.6-11.3); Monocytes % 12.2 % (3.3-12.3); RBC Red Blood Cell Count 4.78 M/uL (4.33-5.43)
[2019-01-11 07:02] LABS: Potassium 4.1 mmol/L (3.5-5.1)
[2019-01-11] MEDS: INSULIN -REGULAR HUMAN 50 UNIT/0.5 ML ML SQ SCH ×3 (07:30→16:30)
[2019-01-11] MEDS ORDERED: GLIMEPIRIDE 2 MG TABLET PO SCH (08:00)
[2019-01-11] MEDS ORDERED: LISINOPRIL 5 MG TAB PO SCH (09:00)
[2019-01-11] MEDS ORDERED: ASPIRIN EC 81 MG TAB PO SCH (09:00)
[2019-01-11] MEDS ORDERED: CITALOPRAM 10 MG TABLET PO SCH (09:00)
[2019-01-11] MEDS ORDERED: REGADENOSON 0.4 MG/5 ML SYR IV ONE (09:17)
[2019-01-11 14:15] VITALS: O2SAT 96
--- NOTE | 2019-01-11 14:31 | RAD REPORT ---
EXAM DESCRIPTION: NM - Rest Stress Cardiac Imaging - 01/11/2019 2:03 pm CLINICAL HISTORY: Chest pain. COMPARISON: 2014 TECHNIQUE: The patient was administered approximately 10mCi of Tc 99m Sestamibi prior to resting SPE CT imaging of the heart. The patient was then administered approximately 30 mCi of Tc 99m Sestamibi f ollowing exercise or pharmacologic stress. Multiplanar SPECT images were reviewed. FINDINGS: The patient has a prior history of a CABG. Small, mild area of diminished radiotracer uptake involves the anterior left ventricular myocardium on rest and stress images. Otherwise there is uniformity of radiotracer uptake involving the entire left ventricular myocardium. Left ventricular ejection fraction equals 46% IMPRESSION: Fixed, small, mild apparent defect involving the anterior left ventricular myocardium may indicate a small infarct or attenuation from overlying soft tissue No evidence of stress-induced ischemia
[2019-01-11] MEDS ORDERED: RANITIDINE 150 MG TABLET PO SCH (15:00)
[2019-01-11] MEDS: ENOXAPARIN 40 MG/0.4 ML SQ SCH (17:00)
[2019-01-11 17:27] VITALS: BP 111/68; TEMP 97
--- NOTE | 2019-01-11 23:47 | PN ---
Date of Progress Note: 01/11/[address] Huertas on 01/10/2019. Mr. Vallejo is a 53-year-old, had come in for chest pain. He had a stress Cardiolite today. He is not h aving any more chest pain. The stress Cardiolite showed a fixed small mild apparent defect involving the anterior left ventricular myocardium, indicating a small infarct or attenuation. No evidence of ischemia. He will be going home today. He will follow up in my office next week. BRIDGER/KOBE Voice ID: [id number] Report ID: [id number]
--- NOTE | 2019-01-12 08:38 | TREADPHA ---
DX: CHEST PAIN Date of Study: 01/11/2019 Ht: 5 11 Wt: 250 lb 0 oz Consulting Physician: ELDA MEDICATIONS: ASPIRIN, LIPITOR, COREG, CELEXA, DEXTROSE, LOVENOX HISTORY: 53 YEAR OLD MALE WITH COMPLAINTS OF CHEST PAIN. HISTORY OF CORONARY ARTERY DISEASE, HYPERTENSION, DIABETES, HYPERLIPIDEMIA AND BENIGN PROSTATIC HYPERPLASIA. PHYSICIAL EXAMINATION: RESTING B.P.: 117/73 RESTING H.R.: 65 RESTING EKG: NORMAL PROTOCOL: LEXISCAN EXERCISE TIME: 3:30 B.P. AT PEAK STRESS: 122/75 IMPRESSION: LEXISCAN INJECTED, FOLLOWED BY CARDIOLITE PER PROTOCOL. SEE NUCLEAR MEDICINE REPORT. NO SUPRAVENTRICULAR TACHYCARDIA, VENTRICULAR TACHYCARDIA OR PREMATURE ATRIAL COMPLEXES. ONE PREMATURE VENTRICUALR COMPLEX BEFORE TEST. PATIENT REPORTED NO CHEST PAIN. NON DIAGNOSTIC EKG WITH LEXISCAN STRESS
--- NOTE | 2019-01-12 15:31 | DS ---
Date of Discharge: 01/11/2019 Consultants: Dr. Connolly and Dr. Willoughby with Cardiology. Procedures: Cardiac stress test on 01/11/2019 shows fixed small mild apparent defect involving the a nterior left ventricular myocardium, indicating a small infarct or attenuation from overlying soft ti ssue. No evidence of stress-induced ischemia. Discharge Diagnoses: 1.Stable angina. Acute coronary syndrome ruled out. 2.Coronary artery disease, [place] artery and [place] heart with angina, status post bypass. 3.Essential hypertension. 4.Diabetes mellitus type 2, non-insulin requiring with hyperglycemia. 5.Mixed hyperlipidemia. 6.Obesity, BMI 34. 7.Benign prostatic hyperplasia, stable. Hospital Course: The patient is a 53-year-old male with history of heart disease, status post CABG, 1 vessel disease, recently in June; hypertension; diabetes; hyperlipidemia; comes in with chest p ain. The patient was admitted to the hospital to rule out ACS. His cardiac enzymes were negative. Lipid panel showed elevated triglycerides and cholesterol. The patient was counseled regarding his l ipid panels. He stated that he does not take his statin regularly. States that this runs in his fam franck and his father never had any heart disease, so he is not keen on taking the medication regularly. He understands that he has coronary artery disease with proven blockage and needs high-dose statin. The patient was seen by Dr. Connolly with Cardiology and was scheduled for stress tests. His stress test was done as mentioned above. The patient will be discharged once cleared by Cardiology. His pa in had resolved. No further symptoms. The patient was then cleared for discharge from Cardiology [facility]. Did discuss with Dr. Willoughby the stress test results. He recommends outpatient followup. Does not recommend repeat cardiac catheterization at this point. Condition: Stable. Diet: Heart healthy. Activity: As tolerated. Medications: As per medication reconciliation list. Followup: Follow up with PCP in 2 to 3 days. Follow up with oil expeller operator, Dr. Willoughby, in 2 weeks. Return to ER for worsening condition. Physical Examination: General: Awake, alert, oriented x3, not in any acute distress. An obese male. CV: S1, S2. No murmurs. Respiratory: Clear to auscultation bilaterally. Extremities: No clubbing, cyanosis, or edema. Neurologic: Nonfocal. SA/MODL Voice ID: [id number] Report ID: [id number]
== END 2019-01-11 18:40 | disposition home or self-care (01) ==
LOC: ER 08:23 → ERHOLD 10:21 → 4TH 11:24
PROVIDERS: ADMIT Family Medicine; ATTEND Family Medicine
DX: I20.0 Unstable angina (principal); I11.9 Hypertensive heart disease without heart failure; I25.110 Atherosclerotic heart disease of native coronary artery with unstable angina pectoris; E11.8 Type 2 diabetes mellitus with unspecified complications; E78.2 Mixed hyperlipidemia; E66.9 Obesity, unspecified; N40.0 Benign prostatic hyperplasia without lower urinary tract symptoms; Z68.34 Body mass index [BMI] 34.0-34.9, adult; Z95.1 Presence of aortocoronary bypass graft; Z95.5 Presence of coronary angioplasty implant and graft
CPT/HCPCS: 36415; 71045; 78452; 80048; 80061; 81003; 82962; 83880; 84484; 85025; 87086; 87088; 93005; 93017; 93306; 94760; 99285; A9500; G0378; J1650; J2785

== ENCOUNTER 2019-05-25 09:37 | Observation (INO) | payer SELFPAY ==
[2019-05-25 10:02] LABS: Absolute Lymphocytes (CBC) 1.9 K/uL (0.7-4.9); Basophils % 0.7 % (0-1.3); Hematocrit 46.1 % (39.6-49.0); Lymphocytes % 22.1 % (15.3-44.8); MPV 8.2 fL (7.6-11.3); RBC Red Blood Cell Count 4.76 M/uL (4.33-5.43)
[2019-05-25 10:14] LABS: Protime INR 1.04
[2019-05-25 10:24] LABS: ALT/SGPT 60 U/L (12-78); AST/SGOT 33 U/L (15-37); Alkaline Phosphatase 107 U/L (45-117); BUN Blood Urea Nitrogen 15 mg/dL (7-18); Bicarbonate 24 mmol/L (21-32); Bilirubin Direct 0.1 mg/dL (0-0.2); Bilirubin Total 0.4 mg/dL (0.2-1.0); Glucose Level 183 mg/dL (74-106); Magnesium 2.2 mg/dL (1.8-2.4); NT PRO-BNP 63 pg/mL (<125); Potassium 4.4 mmol/L (3.5-5.1); Protein, Total 7.4 g/dL (6.4-8.2); Sodium Level 142 mmol/L (136-145); Troponin (Emerg Dept Use Only) < 0.02 ng/mL (0.0-0.045)
--- NOTE | 2019-05-25 10:44 | ER ---
Nurse's Notes [facility] Name: Drake Vallejo Age: 54 yrs Sex: Male : 1965 Arrival Date: 05/25/2019 Time: 09:40 Bed 7 Private MD: Diagnosis: Chest pain, unspecified Presentation: 05/25 09:44 Presenting complaint: Patient states: CP and SOB that began approximately 1 hour ago. ss Transition of care: patient was not received from another setting of care. Onset of symptoms was May 25, 2019. Risk Assessment: Do you want to hurt yourself or someone else? Patient reports no desire to harm self or others. Initial Sepsis Screen: Does the patient meet any 2 criteria? No. Patient's initial sepsis screen is negative. Does the patient have a suspected source of infection? No. Patient's initial sepsis screen is negative. Care prior to arrival: Medication(s) given: ASA, 81 mg, x 2, pt reports taking the medication DISPLAYER. 09:44 Acuity: TERI 2 ss 09:44 Method Of Arrival: Ambulatory ss Triage Assessment: 09:44 General: Appears in no apparent distress. uncomfortable, well groomed, well developed, sv Behavior is calm, cooperative, appropriate for age. Pain: Complains of pain in chest Pain radiates to right arm and left arm Pain currently is 5 out of 10 on a pain scale. Pain began 1 hour ago. Is continuous. Neuro: Level of Consciousness is awake, alert, obeys commands, Oriented to person, place, time, situation, Moves all extremities. Full function Gait is steady, Speech is normal. Cardiovascular: Patient's skin is warm and dry. Pulses are 3+ in right radial artery and left radial artery Rhythm is sinus rhythm with unifocal PVCs. Respiratory: Reports shortness of breath Airway is patent Respiratory effort is even, unlabored, Respiratory pattern is regular, symmetrical. Derm: Skin is pink, warm \T\ dry. Historical: - Allergies: :45 No Known Allergies; ss - PMHx: :45 CAD; Depression; Diabetes - NIDDM; Hypertension; Myocardial infarction; ss - PSHx: :45 CABG; Heart stents; ss - Immunization history:: Adult Immunizations up to date. - Social history:: Smoking status: Patient uses tobacco products, chewing tobacco. - Ebola Screening: : Patient denies exposure to infectious person Patient denies travel to an Ebola-affected area in the 21 days before illness onset. Screenin:45 Abuse screen: Denies threats or abuse. Denies injuries from another. Nutritional sv screening: No deficits noted. Tuberculosis screening: No symptoms or risk factors identified. Fall Risk None identified. Assessment: 11:00 Reassessment: Patient appears in no apparent distress at this time. pt reports pain is sg back is a 8/10, experiencing clutching pain in the midsternal area of chest, experiencing dizziness as well. Hector PYLE notified. 12:11 Reassessment: Nurse to call back for report. sv 12:43 Reassessment: Nurse to call back for report. sv 12:59 Reassessment: Report given to fourth floor nurse. ss Vital Signs: 09:44 Resp 16; Temp 97.7(TE); Pulse Ox 98% on R/A; Weight 113.4 kg; Height 6 ft. 0 in. ss (182.88 cm); Pain 5/10; 09:45 BP 136 / 105; sv 10:45 BP 119 / 98; Pulse 69 MON; Resp 23; Pulse Ox 100% on 2 lpm NC; sv 11:30 BP 123 / 85; Pulse 70; Resp 18; Pulse Ox 99% ; sv 12:10 BP 127 / 89; Pulse 75; Resp 19; Pulse Ox 100% on 2 lpm NC; sv 09:44 Body Mass Index 33.91 (113.40 kg, 182.88 cm) ss 10:45 Sinus Rhythm with Unifocal PVCs sv ED Course: 09:40 Patient arrived in ED. mr 09:44 Arm band placed on right wrist. ss 09:45 Patient has correct armband on for positive identification. Placed in gown. Bed in low sv position. Call light in reach. alarm security or surveillance monitor on. Pulse ox on. NIBP on. Door closed. Head of bed elevated. 09:46 Triage completed. ss 09:50 Neal Pillai PA is PHCP. jr8 09:50 Christiano Red MD is Attending Physician. jr8 09:52 Missed attempt(s): 20 gauge in right antecubital area. Bleeding controlled, band aid sg applied, catheter tip intact. 09:54 Lissette Pacheco, RAINA is Primary Nurse. sv 09:55 EKG done, by ED staff, reviewed by Neal PYLE. sv 09:56 Initial lab(s) drawn, by me, sent to lab. Inserted saline lock: 20 gauge in right sg wrist, using aseptic technique. Blood collected. 10:10 Awaiting for x-ray. sv 10:12 Oxygen administration via nasal cannula \T\ 2L/min. sv 10:43 Katie Reyes MD is Hospitalizing Provider. jr8 10:53 XRAY Chest (1 view) In Process Unspecified. EDMS 11:39 EKG done, by aircraft technician. reviewed by Neal PYLE. at1 12:11 No provider procedures requiring assistance completed. Patient admitted, IV remains in sv place. intact. Administered Medications: 11:00 Drug: Aspirin 162 mg Route: PO; sg 11:12 Follow up: Response: No adverse reaction sv Outcome: 10:43 Decision to Hospitalize by Provider. jr8 13:00 Condition: good ss 13:00 Instructed on the need for admit. 13:05 Admitted to Tele accompanied by tech, family with patient, via wheelchair, room 422, ss with chart. 13:05 Patient left the ED. ss Signatures: Dispatcher [employer] EDLissette Norton, RAINA [place] Brett Carranza, RN RN Jaye Joe mr Mayra Bhardwaj, RN RN Neal Buck PA PA jrDonna Gray, overseer [employer] kitchen EKG Tat1 Corrections: (The following items were deleted from the chart) 10:55 09:44 Care prior to arrival: None. ss sg
--- NOTE | 2019-05-25 10:44 | EDPHYS ---
Physician Documentation [facility] Name: Drake Vallejo Age: 54 yrs Sex: Male : 1965 Arrival Date: 05/25/2019 Time: 09:40 Bed 7 Private MD: ED Physician Christiano Red HPI: 05/25 10:11 This 54 yrs old Male presents to ER via Ambulatory with complaints of Chest jr8 Pain, Shortness Of Breath. 10:11 Onset: The symptoms/episode began/occurred this morning. Associated signs and symptoms: jr8 Pertinent positives: seizure, nausea. The patient has experienced similar episodes in the past. Pt reports he was sitting in his truck playing a game on his phone when he became short of breath, after a few minutes of SOB he began to experience pressure like chest pain rated at a 7/10. At that time pt also experienced, nausea, dry heaving, sensation of being flushed, and tingling in both arms, chest pain lasted about 15 minutes but has since has a dull "discomfort" in chest rated at a 3/10. Pt reports this episode is "just like the last time I had to have a stent". Sees Dr. Rene and Dr. Willoughby, had CABG 10 months ago. Took 2. 81mg ASA at home this morning. . Historical: - Allergies: 09:45 No Known Allergies; ss - PMHx: 09:45 CAD; Depression; Diabetes - NIDDM; Hypertension; Myocardial infarction; ss - PSHx: 09:45 CABG; Heart stents; ss - Immunization history:: Adult Immunizations up to date. - Social history:: Smoking status: Patient uses tobacco products, chewing tobacco. - Ebola Screening: : Patient denies exposure to infectious person Patient denies travel to an Ebola-affected area in the 21 days before illness onset. ROS: 10:14 Constitutional: Negative for fever, chills, and weight loss, Eyes: Negative for injury, jr8 pain, redness, and discharge, ENT: Negative for injury, pain, and discharge, Neck: Negative for injury, pain, and swelling, Abdomen/GI: Negative for abdominal pain, nausea, vomiting, diarrhea, and constipation, Back: Negative for injury and pain, MS/Extremity: Negative for injury and deformity, Neuro: Negative for headache, weakness, numbness, tingling, and seizure. 10:14 Cardiovascular: Positive for chest pain, Negative for edema, orthopnea, palpitations. 10:14 Respiratory: Negative for cough, orthopnea, pleurisy, acute changes. Exam: 10:18 Constitutional: This is a well developed, well nourished patient who is awake, alert, jr8 and in no acute distress. Head/Face: Normocephalic, atraumatic. Eyes: Pupils equal round and reactive to light, extra-ocular motions intact. Lids and lashes normal. Conjunctiva and sclera are non-icteric and not injected. Cornea within normal limits. Periorbital areas with no swelling, redness, or edema. ENT: Nares patent. No nasal discharge, no septal abnormalities noted. Tympanic membranes are normal and external auditory canals are clear. Oropharynx with no redness, swelling, or masses, exudates, or evidence of obstruction, uvula midline. Mucous membranes moist. Neck: Trachea midline, no thyromegaly or masses palpated, and no cervical lymphadenopathy. Supple, full range of motion without nuchal rigidity, or vertebral point tenderness. No Meningismus. Abdomen/GI: Soft, non-tender, with normal bowel sounds. No distension or tympany. No guarding or rebound. No evidence of tenderness throughout. 10:18 Cardiovascular: Pulses: no pulse deficits are appreciated, Heart sounds: normal, normal S1and S2, Edema: is not appreciated, JVD: is not appreciated. 10:18 Respiratory: the patient does not display signs of respiratory distress, Respirations: normal, Breath sounds: are clear throughout, Respiratory rate: 16 10:44 ECG was reviewed by the Attending Physician. [facility] Vital Signs: 09:44 Resp 16; Temp 97.7(TE); Pulse Ox 98% on R/A; Weight 113.4 kg; Height 6 ft. 0 in. ss (182.88 cm); Pain 5/10; 09:45 BP 136 / 105; sv 10:45 BP 119 / 98; Pulse 69 MON; Resp 23; Pulse Ox 100% on 2 lpm NC; sv 11:30 BP 123 / 85; Pulse 70; Resp 18; Pulse Ox 99% ; sv 12:10 BP 127 / 89; Pulse 75; Resp 19; Pulse Ox 100% on 2 lpm NC; sv 09:44 Body Mass Index 33.91 (113.40 kg, 182.88 cm) ss 10:45 Sinus Rhythm with Unifocal PVCs sv MDM: 09:50 Patient medically screened. jr8 10:42 HEART Score: History: Highly Suspicious (2), ECG: Normal (0), Age: > 45 and < 65 years jr8 (1), Risk Factors: > or = 3 Risk factors for atherosclerotic disease (2), [Hypercholesterolemia] [DM] [Obesity] Troponin: < or = 1 x Normal Limit (0), Total Score = 5. The patient was given aspirin in the Emergency Department. Data reviewed: vital signs, nurses notes, EKG, radiologic studies, and as a result, I will admit patient. Data interpreted: Pulse oximetry: on room air is 98 %. Interpretation: normal. Counseling: I had a detailed discussion with the patient and/or guardian regarding: the historical points, exam findings, and any diagnostic results supporting the discharge/admit diagnosis, lab results, radiology results, the need for further work-up and treatment in the hospital. 05/25 09:52 Order name: Basic Metabolic Panel; Complete Time: 10:05/25 09:52 Order name: CBC with Diff; Complete Time: 10:25 05/25 09:52 Order name: LFT's; Complete Time: 10:05/25 09:52 Order name: Magnesium; Complete Time: 10:05/25 09:52 Order name: NT PRO-BNP; Complete Time: 10:05/25 09:52 Order name: PT-INR; Complete Time: 10:47 05/25 09:52 Order name: Troponin (emerg Dept Use Only); Complete Time: 10:05/25 09:52 Order name: XRAY Chest (1 view); Complete Time: 11:00 05/25 09:52 Order name: EKG; Complete Time: 09:52 05/25 09:52 Order name: Cardiac monitoring; Complete Time: :59 05/25 09:52 Order name: EKG - Nurse/Tech; Complete Time: :59 05/25 09:52 Order name: IV Saline Lock; Complete Time: 05/25 11:24 Order name: CONS Physician Consult EDAL 05/25 09:52 Order name: Labs collected and sent; Complete Time: 09:59 8 05/25 09:52 Order name: O2 Per Protocol; Complete Time: 10:00 8 05/25 09:52 Order name: O2 Sat Monitoring; Complete Time: 10:00 8 EC:44 Rate is 82 beats/min. Rhythm is regular. QRS Gonzales is Normal. DE interval is normal at jr8 152 msec. QRS interval is normal at 92 msec. QT interval is normal at 382 msec. No Q waves. T waves are Normal. No ST changes noted. Clinical impression: Abnormal EKG without significant change. Interpreted by me. Reviewed by me. Administered Medications: 11:00 Drug: Aspirin 162 mg Route: PO; 11:12 Follow up: Response: No adverse reaction sv Disposition: 18:29 Co-signature as Attending Physician, Christiano Red MD. rn Disposition: 05/25/19 10:43 Hospitalization ordered by Katie Reyes for Observation. Preliminary diagnosis is Chest pain, unspecified. - Bed requested for Telemetry/MedSurg (observation). - Status is Observation. ss - Condition is Stable. - Problem is new. - Symptoms have improved. UTI on Admission? No Signatures: Dispatcher [employer] EDAL Kamila Flores RN RN dw Brett Carranza RN RAINA Christiano Red MD MD rn Smirch, Shelby, RN RN ss Neal Pillai PA PA jr8 Lissette Pacheco RN sv Corrections: (The following items were deleted from the chart) 10:42 10:11 This 54 yrs old Male presents to ER via Ambulatory with complaints of jr8 Chest Pain, Shortness Of Breath. jr8 12:08 10:43 Hospitalization Ordered by Katie Reyes MD for Observation. Preliminary dw diagnosis is Chest pain, unspecified. Bed requested for Telemetry/MedSurg (observation). Status is Observation. Condition is Stable. Problem is new. Symptoms have improved. UTI on Admission? No. jr8 13:05 12:08 05/25/2019 10:43 Hospitalization Ordered by Katie Reyes MD for Observation. ss Preliminary diagnosis is Chest pain, unspecified. Bed requested for Telemetry/MedSurg (observation). Status is Observation. Condition is Stable. Problem is new. Symptoms have improved. UTI on Admission? No. dw
--- NOTE | 2019-05-25 10:55 | RAD REPORT ---
EXAM DESCRIPTION: RAD - Chest Single View - 05/25/2019 10:44 am CLINICAL HISTORY: Chest pain, shortness of breath COMPARISON: January 10 TECHNIQUE: AP portable chest image was obtained 1030 hours . FINDINGS: No focal lung parenchymal process. Interstitial markings are fractionally increased over t he comparison. Interval change is minimal. Inspiratory effort is more shallow on the current study. V asculature is mildly prominent. Heart size is enlarged but stable. Sternotomy wires are in place. No measurable pleural effusion and no pneumothorax. No acute bony abnormality seen. No acute aortic find ings suspected. IMPRESSION: Stable cardiomegaly with prominent lung markings increased fractionally over comparison. Interval change may be due to a slightly more shallow inspiratory effort. Minimal interstitial edema or infiltrate not excluded.
[2019-05-25] MEDS ORDERED: ASPIRIN 81 MG CHEWABLE TABLET ONE (10:59)
[2019-05-25] MEDS ORDERED: ONDANSETRON 4 MG/2 ML VIAL IV PRN (13:14)
[2019-05-25] MEDS ORDERED: D50W 25 GM/50 ML SYRINGE IV PRN (13:14)
[2019-05-25] MEDS ORDERED: GLUCAGON 1 MG/VIAL IM PRN (13:14)
[2019-05-25] MEDS: INSULIN -REGULAR HUMAN 50 UNIT/0.5 ML ML SQ SCH ×3 (13:14→20:32)
[2019-05-25] MEDS ORDERED: NITROGLYCERIN 0.4 MG/TAB SL PRN (13:14)
--- NOTE | 2019-05-25 15:26 | P.HP ---
Certification for Inpatient Patient admitted to: Observation With expected LOS: <2 Midnights Patient will require the following post-hospital care: None Practitioner: I am a practitioner with admitting privileges, knowledge of patient current condition, hospital course, and medical plan of care. Services: Services provided to patient in accordance with Admission requirements found in Title 42 Section 412.3 of the Code of Federal Regulations Patient History Date of Service: 05/25/19 Primary Care Provider: Denzel, Dr Willoughby Cardiology Reason for admission: SOB and CP History of Present Illness: The patient is a 53-year-old male with past medical history of coronary artery disease status post CABG, 1-vessel disease done in June 2018; hypertension; diabetes; hyperlipidemia; BPH, who was in his usual state of health until 2 days before admission when the patient had sudden onset of substernal chest pain at rest and on excretion. The pain was radiating to his arms with numbness and tingling. The patient also reported some nausea but no vomiting, diaphoresis or palpitations. The patient came into the ER for further evaluation. His symptoms were constant, moderate, progressively worsening. In the ER, he received nitroglycerin sublingual, which he has not been taking at home and this resolved his pain. Initial workup showed negative cardiac enzymes and EKG. Chest x-ray was clear. The patient was then referred for admission to rule out ACS. Allergies No Known Allergies Allergy (Unverified 01/10/19 12:09) Home Medications: Multivitamin [Multivitamins] 1 tab PO DAILY 02/15/16 Nitroglycerin [Nitrostat*] 0.4 mg SL UD PRN #1 bottle 02/18/16 Atorvastatin Calcium [Lipitor*] 80 mg PO BEDTIME 07/03/18 Glimepiride [Amaryl*] 2 mg PO DAILY 07/03/18 Aspirin [Adult Aspirin] 81 mg PO BID 08/12/18 Ascorbic Acid [Vitamin C] 1,000 mg PO DAILY 01/10/19 Lisinopril [Zestril] 2.5 mg PO DAILY 01/10/19 Metformin HCl [Glucophage] 500 mg PO DAILY 01/10/19 Ranitidine [Zantac*] 150 mg PO DAILY 01/10/19 - Past Medical/Surgical History Has patient received pneumonia vaccine in the past: No Diabetic: Yes -: CAD, multiple stents x7 -: Hypertension -: Diabetes mellitus type 2 -: Hyperlipidemia -: Former tobacco use -: BPH -: Cardiac catheterization with stent placement times 7 -: Right knee repair Psychosocial/ Personal History: Patient is . He has 4 children. 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 moist/pink, EOMI, Sclerae nonicteric Neck: Supple, 2+ carotid pulse no bruit, No LAD, Without JVD or thyroid abnormality Respiratory: Clear to auscultation bilaterally, Normal air movement Cardiovascular: Regular rate/rhythm, Normal S1 S2 Gastrointestinal: Normal bowel sounds, No tenderness Musculoskeletal: No tenderness Integumentary: No rashes Neurological: Normal gait, Normal speech, Normal strength at 5/5 x4 extr, Normal tone, Normal affect Lymphatics: No axilla or inguinal lymphadenopathy - Studies Laboratory Data (last 24 hrs) 05/25/19 09:55: PT 12.2, INR 1.04 05/25/19 09:55: WBC 8.5, Hgb 15.7, Hct 46.1, Plt Count 174 05/25/19 09:55: Sodium 142, Potassium 4.4, BUN 15, Creatinine 1.17, Glucose 183 H, Magnesium 2.2, Total Bilirubin 0.4, AST 33, ALT 60, Alkaline Phosphatase 107 Assessment and Plan - Problems (Diagnosis) (1) Pulmonary edema Current Visit: Yes Status: Acute Plan: Acute Pulmonary Edema most likely 2.2 to cardiopulomary Disease -Will start on IV lasix 40mg BID -Cardiology consulted. Appreciated Reccs -Will monitor here in the hospital Qualifiers: Chronicity: acute Qualified Code(s): J81.0 - Acute pulmonary edema (2) Chest pain Onset Date: 02/16/16 Current Visit: No Status: Acute Plan: Chest Pain ACS R/O -Troponin x 2 negative -EKG with Nonspecific Changes -Cardiology consulted. Appreciated reccs -IV lasix for volume overload. -Monitor for improvement Qualifiers: Chest pain type: precordial pain (3) CAD (coronary artery disease) Onset Date: 08/14/18 Current Visit: No Status: Chronic Plan: S/p CABG in Jun 2018 with 7 stent Placement Qualifiers: Coronary Disease-Associated Artery/Lesion type: bypass graft [place] vs. transplanted heart: [place] heart Associated angina: with unspecified angina Qualified Code(s): I25.709 - Atherosclerosis of coronary artery bypass graft(s) , unspecified, with unspecified angina pectoris (4) Diabetes mellitus, type II Onset Date: 07/04/18 Current Visit: No Status: Chronic Qualifiers: Diabetes mellitus exterminator helper termite insulin use: without exterminator helper termite use Diabetes mellitus complication status: without complication Qualified Code(s): E11.9 - Type 2 diabetes mellitus without complications (5) HTN (hypertension) Onset Date: 07/04/18 Current Visit: No Status: Acute Qualifiers: Hypertension type: essential hypertension (6) Hyperlipemia Onset Date: 07/04/18 Current Visit: No Status: Chronic Qualifiers: Hyperlipidemia type: unspecified Qualified Code(s): E78.5 - Hyperlipidemia , unspecified - Plan Admit to Med surg for further care - Advance Directives Does patient have a Living Will: No Does patient have a Durable POA for Healthcare: No
--- NOTE | 2019-05-25 15:31 | EKG ---
Test Date: 2019-05-25 Test Time: 11:10:19 Brick Molder Hand: TAYLOR MEASUREMENT RESULTS: Intervals: Rate: 74 TN: 156 QRSD: 94 QT: 396 QTc: 439 [place]: P: 32 TN: 156 QRS: -24 T: 35 INTERPRETIVE STATEMENTS: Sinus rhythm with occasional premature ventricular complexes Possible Left atrial enlargement Incomplete right bundle branch block Borderline ECG Compared to ECG 05/25/2019 09:50:54 Left-axis deviation no longer present Electronically Signed On 05-25-19 15:31:15 CDT by Long Connolly
--- NOTE | 2019-05-25 15:32 | EKG ---
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
[2019-05-25] MEDS: FUROSEMIDE 20 MG/ 2ML VIAL IV SCH (18:03)
--- NOTE | 2019-05-25 20:15 | CON ---
Chief Complaint: Tightness in the chest. History Of Present Illness: Mr. Vallejo had sudden onset of tightness in the chest , intermittently. It tends to go away in a few minutes with a few deep breaths. He says it reminds a little bit of when he has had angina before. He had stents placed in his heart. Last June, he underwent coronary bypass surgery. Post bypass surgery, his ejection fraction remained preserved. He has given up smoking, continues chewing tobacco, tries his best to follow the weight loss program and still is obese. Medications: His outpatient medications have been multivitamin, nitroglycerin, glimepiride, atorvastatin, aspirin, ascorbic acid, lisinopril, ranitidine, and metformin. Physical Examination: General: He is 5 feet 6 inches tall, 250 pounds. His body mass index is elevated. HEENT: Unremarkable. Lungs: Clear. Chest x-ray pulmonary edema is mild. Extremities: Trace edema. Pulses diminished but palpable. Imaging: Echocardiogram does not show infarction, injury, or ischemia. Laboratory Data: Complete blood count is normal. Clotting studies are normal. Creatinine 1.17 _serial troponins are normal at less than 0.02. Impression: Patient has a small amount of pulmonary edema. If he improves with diuresis he could derek discharged. If diuresis give sno improvement and if we cannot figure things out, we will do a cardiac cath, possible stent. KIRAN Voice ID: [id number] Report ID: [id number] DIAMOND
[2019-05-25] MEDS: ASPIRIN EC 81 MG TAB PO SCH (20:31)
[2019-05-25] MEDS ORDERED: ATORVASTATIN 80 MG TAB PO SCH (21:00)
[2019-05-25 21:14] VITALS: O2SAT 94
[2019-05-25 21:50] LABS: Urine Appearance CLEAR; Urine Bilirubin NEGATIVE (NEG); Urine Blood NEGATIVE (NEG); Urine Color YELLOW; Urine Glucose NEGATIVE (NEG); Urine Microscopic Reflex NO UMIC; Urine Protein NEGATIVE (NEG); Urine Urobilinogen 0.2 mg/dL (0.2-1.0)
[2019-05-26 07:16] LABS: Absolute Lymphocytes (CBC) 1.9 K/uL (0.7-4.9); Basophils % 0.6 % (0-1.3); Lymphocytes % 30.5 % (15.3-44.8); MPV 8.9 fL (7.6-11.3); RBC Red Blood Cell Count 4.52 M/uL (4.33-5.43)
[2019-05-26] MEDS: INSULIN -REGULAR HUMAN 50 UNIT/0.5 ML ML SQ SCH (07:30)
[2019-05-26 07:31] LABS: Potassium 3.8 mmol/L (3.5-5.1)
[2019-05-26 08:03] VITALS: BMI 34.4
[2019-05-26] MEDS ORDERED: ASPIRIN EC 81 MG TAB PO SCH (09:00)
[2019-05-26] MEDS ORDERED: RANITIDINE 150 MG TABLET PO SCH (09:00)
[2019-05-26] MEDS ORDERED: HOME MED 1 EA UNK (Lisinopril [Zestril] 2.5 MG) PO SCH (09:00)
[2019-05-26] MEDS ORDERED: LISINOPRIL 5 MG TAB PO SCH (09:00)
[2019-05-26] MEDS ORDERED: ASCORBIC ACID 500 MG TABLET PO SCH (09:00)
[2019-05-26] MEDS ORDERED: HOME MED 1 EA UNK (Ascorbic Acid [Vitamin C] 1,000 MG) PO SCH (09:00)
[2019-05-26] MEDS: ASPIRIN EC 81 MG TAB PO SCH (09:00)
[2019-05-26] MEDS: FUROSEMIDE 20 MG/ 2ML VIAL IV SCH (09:36)
[2019-05-26 09:37] VITALS: BP 125/75
--- NOTE | 2019-05-26 09:40 | PN ---
Mr. Vallejo did very well with diuresis. He is asymptomatic and I think it is clear that he has mild pul monary edema, feels it, that is what he was feeling when he came in. It does not seem to be unstable angina. Did recommend to be discharged home with sodium restriction and a new prescription for Lasi x 40 mg a day. We will see him in followup within the next month. ALTHEA/KOBE Voice ID: [id number] Report ID: [id number]
[2019-05-26 09:55] VITALS: TEMP 97.7
--- NOTE | 2019-05-26 13:16 | P.SSS ---
Patient History Date of Service: 05/26/19 Primary Care Provider: None, Dr Willoughby Cardiology Reason for admission: SOB and CP History of Present Illness: The patient is a 53-year-old male with past medical history of coronary artery disease status post CABG, 1-vessel disease done in June 2018; hypertension; diabetes; hyperlipidemia; BPH, who was in his usual state of health until 2 days before admission when the patient had sudden onset of substernal chest pain at rest and on excretion. The pain was radiating to his arms with numbness and tingling. The patient also reported some nausea but no vomiting, diaphoresis or palpitations. The patient came into the ER for further evaluation. His symptoms were constant, moderate, progressively worsening. In the ER, he received nitroglycerin sublingual, which he has not been taking at home and this resolved his pain. Initial workup showed negative cardiac enzymes and EKG. Chest x-ray was clear. The patient was then referred for admission to rule out ACS. Allergies No Known Allergies Allergy (Unverified 01/10/19 12:09) Home Medications: Multivitamin [Multivitamins] 1 tab PO DAILY 02/15/16 Nitroglycerin [Nitrostat*] 0.4 mg SL UD PRN #1 bottle 02/18/16 Atorvastatin Calcium [Lipitor*] 80 mg PO BEDTIME 07/03/18 Glimepiride [Amaryl*] 2 mg PO DAILY 07/03/18 Aspirin [Adult Aspirin] 81 mg PO BID 08/12/18 Ascorbic Acid [Vitamin C] 1,000 mg PO DAILY 01/10/19 Lisinopril [Zestril] 2.5 mg PO DAILY 01/10/19 Metformin HCl [Glucophage] 500 mg PO DAILY 01/10/19 Ranitidine [Zantac*] 150 mg PO DAILY 01/10/19 Furosemide [Lasix] 40 mg PO DAILY #30 tablet 05/26/19 - Past Medical/Surgical History Has patient received pneumonia vaccine in the past: No Diabetic: Yes -: CAD, multiple stents x7 -: Hypertension -: Diabetes mellitus type 2 -: Hyperlipidemia -: Former tobacco use -: BPH -: Cardiac catheterization with stent placement times 7 -: Right knee repair Psychosocial/ Personal History: Patient is . He has 4 children. 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 moist/pink, EOMI, Sclerae nonicteric Neck: Supple, 2+ carotid pulse no bruit, No LAD, Without JVD or thyroid abnormality Respiratory: Clear to auscultation bilaterally, Normal air movement Cardiovascular: Regular rate/rhythm, Normal S1 S2 Gastrointestinal: Normal bowel sounds, No tenderness Musculoskeletal: No tenderness Integumentary: No rashes Neurological: Normal gait, Normal speech, Normal strength at 5/5 x4 extr, Normal tone, Normal affect Lymphatics: No axilla or inguinal lymphadenopathy - Diagnosis (Problem(s)) (1) Pulmonary edema Status: Acute Plan: Acute Pulmonary Edema most likely 2.2 to Diet and CAD -Resolved after 2 doses of Lasix IV here in the hospital. -DC home on PO lasix Qualifiers: Chronicity: acute Qualified Code(s): J81.0 - Acute pulmonary edema (2) Chest pain Onset Date: 02/16/16 Status: Acute Plan: Chest Pain ACS R/O -Troponin x 2 negative -EKG with Nonspecific Changes -Chest Pain Resolved -Cardiology Rec DC home Qualifiers: Chest pain type: precordial pain (3) CAD (coronary artery disease) Onset Date: 08/14/18 Status: Chronic Plan: S/p CABG in Jun 2018 with 7 stent Placement Qualifiers: Coronary Disease-Associated Artery/Lesion type: bypass graft [place] vs. transplanted heart: [place] heart Associated angina: with unspecified angina Qualified Code(s): I25.709 - Atherosclerosis of coronary artery bypass graft(s) , unspecified, with unspecified angina pectoris (4) Diabetes mellitus, type II Onset Date: 07/04/18 Status: Chronic Qualifiers: Diabetes mellitus correction insulin use: without tank terminal gauger use Diabetes mellitus complication status: without complication Qualified Code(s): E11.9 - Type 2 diabetes mellitus without complications (5) HTN (hypertension) Onset Date: 07/04/18 Status: Acute Qualifiers: Hypertension type: essential hypertension (6) Hyperlipemia Onset Date: 07/04/18 Status: Chronic Qualifiers: Hyperlipidemia type: unspecified Qualified Code(s): E78.5 - Hyperlipidemia , unspecified - Disposition Disposition: ROUTINE DISCHARGE Condition: GOOD Diet: Regular Activity: Ad marito
== END 2019-05-26 12:00 | disposition home or self-care (01) ==
LOC: ER 09:37 → ERHOLD 11:14 → 4TH 13:00
PROVIDERS: ADMIT Family Medicine; ATTEND Family Medicine
DX: J81.1 Chronic pulmonary edema (principal); R07.9 Chest pain, unspecified; I25.10 Atherosclerotic heart disease of native coronary artery without angina pectoris; I10 Essential (primary) hypertension; E11.9 Type 2 diabetes mellitus without complications; E78.5 Hyperlipidemia, unspecified; Z95.1 Presence of aortocoronary bypass graft; Z87.891 Personal history of nicotine dependence
CPT/HCPCS: 36415; 71045; 80048; 80076; 81003; 82962; 83735; 83880; 84484; 85025; 85610; 93005; 99285; G0378; J1940

== ENCOUNTER 2020-06-28 19:37 | Observation (INO) | payer BC, SELFPAY ==
--- OUTSIDE RECORDS SUMMARY | 2020-06-28 19:39 | XMS REPORT | Clinical Summary ---
:1965 Author Organization [facility] Address [address] [place] [address] Care Team Providers Name Role Phone Twan Decker Unavailable Allergies Active Allergy Reactions Severity Noted Date Comments Hydrocodone-Acetaminophen Other (See Comments) 018 Light headed Medications Medication Sig Dispensed Refills Start Date End Date Status carvedilol (COREG) 25 Take 25 mg by 0 Active MG tablet mouth 2 (two) times daily with breakfast and dinner. atorvastatin Take 80 mg by 0 Act norma (LIPITOR) 80 MG mouth daily. tablet aspirin 81 MG EC Take 81 mg by 0 Active tablet mouth daily. ascorbic acid, Take 1,000 mg by 0 Active vitamin C, (VITAMIN mouth daily. C) 1000 MG tablet metFORMIN Take 500 mg by 0 Activ e (GLUCOPHAGE) 500 MG mouth 2 (two) tablet times daily with breakfast and dinner. glimepiride (AMARYL) Take 2 mg by 0 Active 2 MG tablet mouth 2 (two) times daily. ranitidine (ZANTAC) Take 150 mg by 0 Active 150 MG capsule mouth daily. nitroglycerin Place 0.4 mg 0 Act norma (NITROSTAT) 0.4 MG SL under the tablet tongue. amiodarone (PACERONE) Take 1 tablet 30 tablet 11 07/11/2018 200 MG tablet (200 mg total) by mouth daily. lisinopril Take 1 tablet 30 tablet 07/11/2018 07/11/2019 Exp ired (PRINIVIL,ZESTRIL) (2.5 mg total) 2.5 MG tablet by mouth daily. Active Problems Problem Noted Date Coronary artery disease involving [place] coronary dipesh ry of [place] heart 07/10/2018 with angina pectoris Diastolic CHF 07/10/2018 Type 2 diabetes mellitus 07/10/2018 HTN (hypertension) 07/10/2018 JOSE CRUZ (obstructive sleep apnea) 07/10/2018 HLD (hyperlipidemia) 07/10/2018 Postoperative pain 07/07/2018 Acute respiratory insufficiency 07/06/2018 Other shock 07/06/2018 AMI (acute myocardial infarction) 07/04/2018 S/P CABG x 1 Family History Medical History Relation Name Comments [...] oz/Week Comments Yes 6 Cans of beer 6.0 6 beers a month Sex Assigned at Date Recorded Not on file Last Filed Vital Signs Not on file Plan of Treatment Not on file Results Not on fileafter 06/28/2019 Advance Directives For more information, please contact: [phone] Code Status Date Activated Date Inactivated Comments [...]
--- OUTSIDE RECORDS SUMMARY | 2020-06-28 19:39 | XMS REPORT | Clinical Summary ---
:1965 Author Organization [facility] Address [address] [place] [address] Care Team Providers Name Role Phone Henri Rene DO Primary Care Provider Allergies No Known Active Allergies Medications Medication Sig Dispensed Refills Start [...] norma (NITROSTAT) 0.4 MG SL under the tongue [...] Date Type 2 diabetes mellitus without complication 10/31/19 18 Obesity (BMI 30-39.9) 10/30/2017 Essential hypertension 10/30/2017 Unstable angina pectoris 10/28/2017 Surgical History Surgery Date Site/Laterality Comments KNEE ARTHROSCOPY Right CARDIAC SURGERY CORONARY ANGIOPLASTY WITH STENT PLACEMENT 8 caths, 7 stents Medical History Medical History Date Comments Hypertension GERD (gastroesophageal reflux disease) Coronary artery disease Type 2 diabetes mellitus without complication (HCC) 10/30/2017 Social History Tobacco Use Types Packs/Day Years Used Date Former Smoker Smokeless Tobacco: Current User Alcohol Use Drinks/Week oz/Week Comments Yes 12 Cans of beer 12.0 Sex Assigned at Date Recorded Not on file Last Filed Vital Signs Not on file Plan of Treatment Health Maintenance Due Date Last Done Comments DIABETES: RETINAL EYE EXAM 1975 DIABETIC FOOT EXAM 1975 URINE MICROALBUMIN 1975 COLONOSCOPY SCREENING 2015 SHINGLES VACCINES (#1) 2015 INFLUENZA VACCINE 03/29/2020 Results Not on fileafter 06/28/2019 Advance Directives For more information, please contact: [phone] Type Date Recorded 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
--- OUTSIDE RECORDS SUMMARY | 2020-06-28 19:42 | XMS REPORT | Continuity of Care Document ---
:[address] [facility] t Address [address] [place] [address] Care Team Providers Name Role Phone Rene Massimo Primary Care Physician REBECCA JUSTICE Attending Clinician Unavailable REBECCA JUSTICE Admitting Clinician Unavailable Problems Condition Condition Condition Status Onset Resolution Last Treating Co mments Source Name Details Category Date Date Treatment Clinician Date Coronary Coronary Disease [facility] disease disease 00:[facility]: Medical involving involving 00 Cent [facility] coronary coronary artery of artery of [facility] heart with heart with angina angina pectoris pectoris Diastolic Diastolic Disease Active 2017-[address] [facility] [address] CHF CHF 09-09 [facility] 00 Center 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 [facility] [address] diabetes diabetes 09-09 [facility] - mellitus mellitus 00:00: Medica l 00 Center HTN HTN Disease Active 2017-[address] [facility] [address] (hypertens (hypertens 09-09 Kimber[facility]es - ion) ion) 00:00: Medical 00 Center JOSE CRUZ JOSE CRUZ Disease Active 2017-[address] [facility] [address] (obstructi (obstructi 09-09 Kimberly kes - ve sleep ve sleep 00:00: Medica l apnea) apnea) 00 Center HLD HLD Disease Active 2017-[address] [facility] [address] (hyperlipi (hyperlipi 09-09 Kimberly kes - demia) demia) 00:00: Medical 00 Center Postoperat Postoperat Disease Active 2017-[address] norma pain norma pain 09-06 [facility] 00 Center Acute Acute Disease Active 2017-[address] [facility] [address] respirator respirator 09-05 Kimberly kes - y y 00:00: Medical insufficie insufficie 00 Ce nter ncy ncy Other Other Disease Active 2017-[address] [facility] [address] shock shock 09-05 [facility] - 00:[facility]: Medical 00 Center AMI (acute AMI (acute Disease Active 2017-[address] myocardial myocardial 09-03 [facility] - infarction infarction 00:00: Sc dical ) ) 00 Center Type 2 Type 2 Disease Active [place] diabetes diabetes 3-04 Method i mellitus mellitus 00:00: st without without 00 complicati complicati on on Obesity Obesity Disease Active [place] (BMI (BMI 3-04 [facility] 30-39.9) 30-39.9) 00:00: st 00 Essential Essential Disease Active [facility]ie ston hypertensi hypertensi 3-04 Me thodi on on 00:00: st 00 Unstable Unstable Disease Active [place] angina angina 02 [facility] pectoris pectoris 00:00: st 00 S/P CABG x S/P CABG x Disease Active [facility] Allergies, Adverse Reactions, Alerts Allergy Allergy Status Severity Reaction(s) Onset Inactive Treating Comm ents Source Name Type Date Date Clinician Hydrocod Propensi Active Other (See 2017-[address] one-Acet ty to Comments) 09-05 headed [place] - aminophe adverse 00:00: Medical n reaction 00 Center s Family History Family Member Diagnosis Comments Start Date Stop Date Source Natural father Cancer [facility] Maternal grandmother Cancer [facility] Maternal grandmother Heart disease C [facility] Maternal uncle Stroke [facility] Natural mother Diabetes [facility] Natural mother Heart disease [facility] Natural mother Hypertension [facility] Natural mother Stroke [facility] Paternal uncle Diabetes [facility] Social History Social Habit Start Date Stop Date Quantity Comments Source Sex Assigned At [facility] Tobacco use and 2018-07-07 2018-07-[address] [facility] [address] Kimberly kes - exposure 00:00:00 00:00:00 Medical Center Alcohol intake 2018-07-07 2018-07-07 Current drinker NADINE buenrostro Lus[place] - 00:00:00 00:00:00 of alcohol Medical Center (finding) Alcohol Comment 2018-07-04 2018-07-04 6 beers a month NADINE [facility] - 00:00:00 00:00:00 Medical [place] Smoking Status Start Date Stop Date Source Never smoker NADINE [place] [facility] Former smoker 2017-10-30 00:00:00 2017-10-30 00:00:00 [place] [facility] Medications Ordered Filled Start Stop Current Ordering Indication Dosage Frequency Signature Comments Components Source Medication Medication Date Date Medication? Clinician (SIG) Name Name carvedilol 2017-08 Yes 25mg Take [address] (COREG) 25 1-13 by mouth 2 Olivia es - MG tablet 17:24: (two) Medical 00 times Center daily with breakfast and dinner. atorvastati 2017-08 Yes 80mg QD Take [address] n (LIPITOR) 1-13 by mouth Luke s - 80 MG 17:24: daily. Medical tablet 00 Center aspirin 81 2017-08 Yes 81mg QD Take [address] MG EC 1-13 by mouth [facility] - tablet 17:24: daily. Medical 00 Center ascorbic 2017-08 Yes 1000mg QD Take 1,[address] acid, 1-13 mg by [facility] - vitamin C, 17:24: mouth Medica l (VITAMIN C) 00 daily. Center 1000 MG tablet metFORMIN 2017-08 Yes 500mg Take [address] (GLUCOPHAGE 1-13 mg by [facility] - ) 500 MG 17:24: mouth 2 Medica l tablet 00 (two) Center times daily with breakfast and dinner. glimepiride 2017-08 Yes 2mg Q.5D Take [address] (AMARYL) 2 1-13 by mouth 2 Olivia es - MG tablet 17:24: (two) Medical 00 times Center daily. ranitidine 2017-08 Yes 150mg QD Take [address] (ZANTAC) 1-13 mg by [facility] - 150 MG 17:24: mouth Medical capsule 00 daily. [place] nitroglycer 2017-[address] 0[address] in 1-13 mg under [facility] - (NITROSTAT) 17:24: the Medica l 0.4 MG SL 00 tongue. Center tablet amiodarone 2017-08- No 200mg QD Take [address] (PACERONE) 09-10 tablet [facility] - 200 MG 00:00: 23:59 (200 mg Medical tablet 00 :00 total) by Center mouth daily. lisinopril 2017-08- No 2.5mg QD Take [address] (PRINIVIL,Z 09-10 tablet [facility] - ESTRIL) 2.5 00:00: 23:59 (2.5 mg Me dical MG tablet 00 :00 total) by Cente r mouth daily. citalopram 2018-0 Yes 20mg QD Take 20 mg [place] (CeleXA) 20 3-05 by mouth Meth alejandra MG tablet 14:54: daily. st 18 clopidogrel 2018-0 Yes 75mg QD Take 75 mg [place] (PLAVIX) 75 3-05 by mouth Meth alejandra mg tablet 14:54: daily. st 18 carvedilol 2018-0 Yes 25mg Q.5D Take 25 mg [place] (COREG) 25 3-05 by mouth 2 Met hodi MG tablet 14:54: (two) st 18 times a day with meals. atorvastati 2018-0 Yes 40mg Q.5D Take 40 mg [place] n (LIPITOR) 3-05 by mouth 2 Me thodi 40 MG 14:54: (two) st tablet 18 times a day. aspirin 2018-0 Yes 81mg QD Take 81 mg [place] (ECOTRIN) 3-05 by mouth Method i 81 MG 14:54: daily. st enteric 18 coated tablet nitroglycer 2018-[address] 0.4 [place] in 3-05 mg under [facility] (NITROSTAT) 14:54: the tongue st 0.4 MG SL 18 every 5 tablet (five) minutes as needed for chest pain. ascorbic 2018-0 Yes 500mg QD Take 500 [place] acid, 3-05 mg by [facility] vitamin C, 14:54: mouth st (VITAMIN C) 18 daily. 500 MG tablet multivitami 2018-0 Yes 1{tbl} QD Take 1 [place] 3-05 tablet by [facility] (THERAGRAN) 14:54: mouth st tablet 18 daily. ranitidine 2018-0 Yes 150mg Take 150 [place] (ZANTAC) 3-05 mg by [facility] 150 MG 14:54: mouth st tablet 18 daily. Procedures This patient has no known procedures. Plan of Care Planned Activity Planned Date Details Comments Source Future Scheduled 2020-03-29 INFLUENZA VACCINE [place] [facility] Test 00:00:00 [code = INFLUENZA VACCINE] Future Scheduled 2015 COLONOSCOPY SCREENING [place] [facility] Test 00:00:00 [code = COLONOSCOPY SCREENING] Future Scheduled 2015 SHINGLES VACCINES (#1) [place] [facility] Test 00:00:00 [code = SHINGLES VACCINES (#1)] Future Scheduled 1975 DIABETES: RETINAL EYE [place] [facility] Test 00:00:00 EXAM [code = DIABETES: RETINAL EYE EXAM] Future Scheduled 1975 DIABETIC FOOT EXAM [place] [facility] Test 00:00:00 [code = DIABETIC FOOT EXAM] Future Scheduled 1975 URINE MICROALBUMIN [place] [facility] Test 00:00:00 [code = URINE MICROALBUMIN] Results Test Description Test Time Test Comments Results Result Comments Source URINALYSIS W/ REFLEX URINE CULTURE 2018-07-11 16:24:00 Test Item Value Reference Range Interpretation Comme nts COLOR (BEAKER) (test code = 470) Yellow CLARITY (BEAKER) (test code = 469) Clear SPECIFIC GRAVITY UA (BEAKER) (test code = 468) 1.025 1.001-1 .035 PH UA (BEAKER) (test code = 467) 5.5 5.0-8.0 PROTEIN UA (BEAKER) (test code = 464) 20 mg/dL Negative A GLUCOSE UA (BEAKER) (test code = 365) Negative Negative KETONES UA (BEAKER) (test code = 371) Negative Negative BILIRUBIN UA (BEAKER) (test code = 462) Negative Negative BLOOD UA (BEAKER) (test code = 461) Small Negative A NITRITE UA (BEAKER) (test code = 465) Negative Negative LEUKOCYTE ESTERASE UA (BEAKER) (test code = 466) Negative Negat norma UROBILINOGEN UA (BEAKER) (test code = 463) 4.0 mg/dL 0.2-1.0 H RBC UA (BEAKER) (test code = 519) 10 /HPF WBC UA (BEAKER) (test code = 520) 3 /HPF MUCUS (BEAKER) (test code = 1574) Occasional SQUAMOUS EPITHELIAL (BEAKER) (test code = 516) < /HPF HYALINE CASTS (BEAKER) (test code = 514) 5 /LPF CASTS (BEAKER) (test code = 1579) 1 /LPF SOURCE(BEAKER) (test code = 2795) POCT-GLUCOSE [id number] 12:36:00 Test Item Value Reference Range Interpretation Comments POC-GLUCOSE METER 151 mg/dL 70-110 H TESTED AT [facility] 6720 (BEAKER) (test code = SURAJ Colon [facility] 1538) [id number] POCT-GLUCOSE [id number] 08:14:00 Test Item Value Reference Range Interpretation Comments POC-GLUCOSE METER 159 mg/dL 70-110 H TESTED AT [facility] 67 (BEAKER) (test code = [facility] Darlene [facility] 1538) [id number] RAD, CHEST, 1 VIEW, NON [id number] 08:10:00Reason for exam:->eval pulmonary congestionShould this be [...] changes.Additional findings: None. Signed: JR [place] Robert [facility] Verified Date/Time: 07/11/2018 08:10:57 Reading Location: [facility] C013V Neuro Reading Room [id number] 05:02:00 Test Item Value Reference Range Interpretation Comments MAGNESIUM (BEAKER) (test code = 2.1 mg/dL 1.6-2.6 627) BASIC METABOLIC [id number] 05:02:00 Test Item Value Reference Range Interpretation Comments SODIUM (BEAKER) 140 meq/L 136-145 (test code = 381) POTASSIUM (BEAKER) 3.9 meq/L 3.5-5.1 (test code = 379) CHLORIDE (BEAKER) 103 meq/L 98-107 (test code = 382) CO2 (BEAKER) (test 26 meq/L 22-29 code = 355) BLOOD UREA NITROGEN 17 mg/dL 7-21 (BEAKER) (test code = 354) CREATININE (BEAKER) 0.98 mg/dL 0.57-1.25 (test code = 358) GLUCOSE RANDOM 148 mg/dL 70-105 H (BEAKER) (test code = 652) CALCIUM (BEAKER) 9.7 mg/dL 8.4-10.2 (test code = 697) EGFR (BEAKER) (test 80 mL/min/1.73 ESTIMA CARMEN GFR IS code = 1092) sq m NOT ACCURATE CREATININE CLEARANCE IN PREDICTING GLOMERULAR FILTRATION RATE . ESTIMATED GFR I S NOT APPLICABLE FOR DIALYSIS PATIEN TS. CBC (HEMOGRAM ONLY)2018-07-11 04:43:00 Test Item Value Reference Range Interpretation Comments WHITE BLOOD CELL COUNT (BEAKER) 8.7 K/ L 3.5-10.5 (test code = 775) RED BLOOD CELL COUNT (BEAKER) 3.32 M/ L 4.63-6.08 L (test code = 761) HEMOGLOBIN (BEAKER) (test code = 10.7 GM/DL 13.7-17.5 L 410) HEMATOCRIT (BEAKER) (test code = 33.0 % 40.1-51.0 L 411) MEAN CORPUSCULAR VOLUME (BEAKER) 99.4 fL 79.0-92.2 H (test code = 753) MEAN CORPUSCULAR HEMOGLOBIN 32.2 pg 25.7-32.2 (BEAKER) (test code = 751) MEAN CORPUSCULAR HEMOGLOBIN CONC 32.4 GM/DL 32.3-36.5 (BEAKER) (test code = 752) RED CELL DISTRIBUTION WIDTH 12.2 % 11.6-14.4 (BEAKER) (test code = 412) PLATELET COUNT (BEAKER) (test 179 K/CU MM 150-450 code = 756) MEAN PLATELET VOLUME (BEAKER) 10.0 fL 9.4-12.4 (test code = 754) NUCLEATED RED BLOOD CELLS 0 /100 WBC 0-0 (BEAKER) (test code = 413) POCT-GLUCOSE [id number] 21:35:00 Test Item Value Reference Range Interpretation Comments POC-GLUCOSE METER 172 mg/dL 70-110 H TESTED AT [place] [address] ([facility]) (test code = SUR[place]AMINS[place] 1538) [id number] POCT-GLUCOSE [id number] 17:50:00 Test Item Value Reference Range Interpretation Comments POC-GLUCOSE METER 142 mg/dL 70-110 H TESTED AT [place] [address] ([facility]) (test code = SURAJ [place]AMINSKI [place] 1538) [id number] B-TYPE NATRIURETIC FACTOR (BNP)2018-07-10 14:23:00 Test Item Value Reference Range Interpretation Comments B-TYPE NATRIURETIC PEPTIDE (AKER) 263 pg/mL 0-100 H (test code = 700) POCT-GLUCOSE [id number] 12:30:00 Test Item Value Reference Range Interpretation Comments POC-GLUCOSE METER 162 mg/dL 70-110 H TESTED AT [place] [address] ([facility]) (test code = SUR[place]AMINSKI [place] 1538) [id number] POCT-GLUCOSE [id number] 08:28:00 Test Item Value Reference Range Interpretation Comments POC-GLUCOSE METER 248 mg/dL 70-110 H TESTED AT [place] [address] ([facility]) (test code = SURAJ Colon [place] 1538) [id number] RAD, CHEST, 1 VIEW, NON [id number] 07:32:00Reason for exam:->eval pulmonary congestionShould this be [...] MDReport Verified Date/Time: 07/10/2018 07:32:04 Reading Location: [address] Neuro Reading Room [id number] 06:04:00 Test Item Value Reference Range Interpretation Comments MAGNESIUM (BEAKER) (test code = 2.3 mg/dL 1.6-2.6 627) BASIC METABOLIC [id number] 06:04:00 Test Item Value Reference Range Interpretation Comments SODIUM (BEAKER) 143 meq/L 136-145 (test code = 381) POTASSIUM (BEAKER) 4.0 meq/L 3.5-5.1 (test code = 379) CHLORIDE (BEAKER) 105 meq/L 98-107 (test code = 382) CO2 (BEAKER) (test 29 meq/L 22-29 code = 355) BLOOD UREA NITROGEN 16 mg/dL 7-21 (BEAKER) (test code = 354) CREATININE (BEAKER) 1.07 mg/dL 0.57-1.25 (test code = 358) GLUCOSE RANDOM 133 mg/dL 70-105 H (BEAKER) (test code = 652) CALCIUM (BEAKER) 9.7 mg/dL 8.4-10.2 (test code = 697) EGFR (BEAKER) (test 72 mL/min/1.73 ESTIMA CARMEN GFR IS code = 1092) sq m NOT ACCURATE CREATININE CLEARANCE IN PREDICTING GLOMERULAR FILTRATION RATE . ESTIMATED GFR I S NOT APPLICABLE FOR DIALYSIS PATIEN TS. CBC (HEMOGRAM ONLY)2018-07-10 05:59:00 Test Item Value Reference Range Interpretation Comments WHITE BLOOD CELL COUNT (BEAKER) 7.1 K/ L 3.5-10.5 (test code = 775) RED BLOOD CELL COUNT (BEAKER) 3.50 M/ L 4.63-6.08 L (test code = 761) HEMOGLOBIN (BEAKER) (test code = 11.6 GM/DL 13.7-17.5 L 410) HEMATOCRIT (BEAKER) (test code = 35.7 % 40.1-51.0 L 411) MEAN CORPUSCULAR VOLUME (BEAKER) 102.0 fL 79.0-92.2 H (test code = 753) MEAN CORPUSCULAR HEMOGLOBIN 33.1 pg 25.7-32.2 H (BEAKER) (test code = 751) MEAN CORPUSCULAR HEMOGLOBIN CONC 32.5 GM/DL 32.3-36.5 (BEAKER) (test code = 752) RED CELL DISTRIBUTION WIDTH 12.4 % 11.6-14.4 (BEAKER) (test code = 412) PLATELET COUNT (BEAKER) (test 173 K/CU MM 150-450 code = 756) MEAN PLATELET VOLUME (BEAKER) 10.7 fL 9.4-12.4 (test code = 754) NUCLEATED RED BLOOD CELLS 0 /100 WBC 0-0 (AKER) (test code = 413) POCT-GLUCOSE [id number] 21:23:00 Test Item Value Reference Range Interpretation Comments POC-GLUCOSE METER 166 mg/dL 70-110 H TESTED AT [place] [address] ([facility]) (test code = SURAJ Colon [place] 1538) [id number] 12:50:00 Test Item Value Reference Range Interpretation Comments POTASSIUM (BEAKER) (test code = 4.0 meq/L 3.5-5.1 379) Check Serum Magnesium level 2 hours after IV magnesium replacement.Check Serum Phosphorus level 4 hours after IV phosphorus replacement or 8 hours after PO replacement completed.Every 8 hours PRN for Creatinine greater than or equal to 2 mg/dL.[id number] 12:50:00 Test Item Value Reference Range Interpretation Comments MAGNESIUM (BEAKER) (test code = 2.3 mg/dL 1.6-2.6 627) Check Serum Magnesium level 2 hours after IV magnesium replacement.Check Serum Phosphorus level 4 hours after IV phosphorus replacement or 8 hours after PO replacement completed.Every 8 hours PRN for Creatinine greater than or equal to 2 mg/dL.[id number] 12:50:00 Test Item Value Reference Range Interpretation Comments PHOSPHORUS (BEAKER) (test code = 1.6 mg/dL 2.3-4.7 L 604) Check Serum Magnesium level 2 hours after IV magnesium replacement.Check Serum Phosphorus level 4 hours after IV phosphorus replacement or 8 hours after PO replacement completed.Every 8 hours PRN for Creatinine greater than or equal to 2 mg/dL.POCT-GLUCOSE [id number] 12:19:00 Test Item Value Reference Range Interpretation Comments POC-GLUCOSE METER 255 mg/dL 70-110 H TESTED AT [place] [address] ([facility]) (test code = SURAJ Colon [place] 1538) [id number] RAD, CHEST, 1 VIEW, NON [id number] 09:46:00while patient is intubated or has chest [...] the SVC region. Signed: Aga Zafar MDReportVerified Date/Time: 07/09/2018 09:46:04 Reading Location: [address] Transitional Reading Room POCT-GLUCOSE [id number] 08:01:00 Test Item Value Reference Range Interpretation Comments POC-GLUCOSE METER 173 mg/dL 70-110 H TESTED AT [facility] 6720 (BEAKER) (test code = [place] 1538) [id number] 04:58:00 Test Item Value Reference Range Interpretation Comments PHOSPHORUS (BEAKER) (test code = 2.3 mg/dL 2.3-4.7 604) Check Serum Phosphorus level 4 hours after IV phosphorus replacement or 8 hours after PO replacementcompleted.[id number] 04:58:00 Test Item Value Reference Range Interpretation Comments MAGNESIUM (BEAKER) (test code = 2.3 mg/dL 1.6-2.6 627) Check Serum Phosphorus level 4 hours after IV phosphorus replacement or 8 hours after PO replacementcompleted.BASIC METABOLIC [id number] 04:58:00 Test Item Value Reference Range Interpretation Comments SODIUM (BEAKER) 143 meq/L 136-145 (test code = 381) POTASSIUM (BEAKER) 4.0 meq/L 3.5-5.1 (test code = 379) CHLORIDE (BEAKER) 109 meq/L 98-107 H (test code = 382) CO2 (BEAKER) (test 27 meq/L 22-29 code = 355) BLOOD UREA NITROGEN 12 mg/dL 7-21 (BEAKER) (test code = 354) CREATININE (BEAKER) 0.85 mg/dL 0.57-1.25 (test code = 358) GLUCOSE RANDOM 146 mg/dL 70-105 H (BEAKER) (test code = 652) CALCIUM (BEAKER) 8.8 mg/dL 8.4-10.2 (test code = 697) EGFR (BEAKER) (test 94 mL/min/1.73 ESTIMA CARMEN GFR IS code = 1092) sq m NOT ACCURATE CREATININE CLEARANCE IN PREDICTING GLOMERULAR FILTRATION RATE . ESTIMATED GFR I S NOT APPLICABLE FOR DIALYSIS PATIEN TS. Check Serum Phosphorus level 4 hours after IV phosphorus replacement or 8 hours after PO replacementcompleted.CBC (HEMOGRAM ONLY)2018-07-09 04:38:00 Test Item Value Reference Range Interpretation Comments WHITE BLOOD CELL COUNT (BEAKER) 7.8 K/ L 3.5-10.5 (test code = 775) RED BLOOD CELL COUNT (BEAKER) 3.12 M/ L 4.63-6.08 L (test code = 761) HEMOGLOBIN (BEAKER) (test code = 10.2 GM/DL 13.7-17.5 L 410) HEMATOCRIT (BEAKER) (test code = 31.3 % 40.1-51.0 L 411) MEAN CORPUSCULAR VOLUME (BEAKER) 100.3 fL 79.0-92.2 H (test code = 753) MEAN CORPUSCULAR HEMOGLOBIN 32.7 pg 25.7-32.2 H (BEAKER) (test code = 751) MEAN CORPUSCULAR HEMOGLOBIN CONC 32.6 GM/DL 32.3-36.5 (BEAKER) (test code = 752) RED CELL DISTRIBUTION WIDTH 12.6 % 11.6-14.4 (BEAKER) (test code = 412) PLATELET COUNT (BEAKER) (test 107 K/CU MM 150-450 L code = 756) MEAN PLATELET VOLUME (BEAKER) 10.6 fL 9.4-12.4 (test code = 754) NUCLEATED RED BLOOD CELLS 0 /100 WBC 0-0 (BEAKER) (test code = 413) [id number] 00:40:00 Test Item Value Reference Range Interpretation Comments POTASSIUM (BEAKER) (test code = 3.5 meq/L 3.5-5.1 379) Every 8 hours PRN for Creatinine greater than or equal to 2 mg/dL.POCT-GLUCOSE [id number] 20:50:00 Test Item Value Reference Range Interpretation Comments POC-GLUCOSE METER 171 mg/dL 70-110 H TESTED AT [place] [address] ([facility]) (test code = SURAJ Colon [facility] 1538) [id number] 18:19:00 Test Item Value Reference Range Interpretation Comments POTASSIUM (BEAKER) (test code = 3.7 meq/L 3.5-5.1 379) Check Serum Magnesium level 2 hours after IV magnesium replacement.Check Serum Phosphorus level 4 hours after IV phosphorus replacement or 8 hours after PO replacement completed.8 hours after PO replacement [id number] 18:19:00 Test Item Value Reference Range Interpretation Comments MAGNESIUM (BEAKER) (test code = 2.1 mg/dL 1.6-2.6 627) Check Serum Magnesium level 2 hours after IV magnesium replacement.Check Serum Phosphorus level 4 hours after IV phosphorus replacement or 8 hours after PO replacement completed.8 hours after PO replacement [id number] 18:19:00 Test Item Value Reference Range Interpretation Comments PHOSPHORUS (BEAKER) (test code = 1.7 mg/dL 2.3-4.7 L 604) Check Serum Magnesium level 2 hours after IV magnesium replacement.Check Serum Phosphorus level 4 hours after IV phosphorus replacement or 8 hours after PO replacement completed.8 hours after PO replacement completedCALCIUM, IONIZED 2018-07-08 18:03:00 Test Item Value Reference Range Interpretation Comments CALCIUM IONIZED (AKER) (test 1.13 mmol/L 1.12-1.27 code = 698) PH, BLOOD ([facility]) (test code = 7.51 1810) Check serum Ionized Calcium level after 4 hours after IV Calcium replacement. POCT-GLUCOSE [id number] 17:17:00 Test Item Value Reference Range Interpretation Comments POC-GLUCOSE METER 195 mg/dL 70-110 H TESTED AT [place] [address] ([facility]) (test code = SURAJ Colon [facility] 1538) [id number] POCT-GLUCOSE [id number] 12:17:00 Test Item Value Reference Range Interpretation Comments POC-GLUCOSE METER 231 mg/dL 70-110 H TESTED AT [place] [address] ([facility]) (test code = SURAJ Colon [facility] 9438) [id number] RAD, CHEST, 1 VIEW, NON [id number] 09:19:00Reason for exam:- >hypoxiaShould this be performed at the bedside?->YesFINAL REPORT [...] MDReport Verified Date/Time: 07/08/2018 09:19:57 Reading Location: [address] Transitional Reading Room [id number] 08:56:00 Test Item Value Reference Range Interpretation Comments PHOSPHORUS (BEAKER) (test code = 1.7 mg/dL 2.3-4.7 L 604) [id number] 08:56:00 Test Item Value Reference Range Interpretation Comments MAGNESIUM (BEAKER) (test code = 2.1 mg/dL 1.6-2.6 627) BASIC METABOLIC [id number] 08:56:00 Test Item Value Reference Range Interpretation Comments SODIUM (BEAKER) 141 meq/L 136-145 (test code = 381) POTASSIUM (BEAKER) 4.0 meq/L 3.5-5.1 (test code = 379) CHLORIDE (BEAKER) 109 meq/L 98-107 H (test code = 382) CO2 (BEAKER) (test 24 meq/L 22-29 code = 355) BLOOD UREA NITROGEN 13 mg/dL 7-21 (BEAKER) (test code = 354) CREATININE (BEAKER) 0.87 mg/dL 0.57-1.25 (test code = 358) GLUCOSE RANDOM 153 mg/dL 70-105 H (BEAKER) (test code = 652) CALCIUM (BEAKER) 9.1 mg/dL 8.4-10.2 (test code = 697) EGFR (BEAKER) (test 92 mL/min/1.73 ESTIMA CARMEN GFR IS code = 1092) sq m NOT ACCURATE CREATININE CLEARANCE IN PREDICTING GLOMERULAR FILTRATION RATE . ESTIMATED GFR I S NOT APPLICABLE FOR DIALYSIS PATIEN TS. BLOOD GAS, [id number] 08:49:00 Test Item Value Reference Range Interpretation Comments PH ARTERIAL (BEAKER) (test code = 7.48 7.35-7.45 H 383) PCO2 ARTERIAL (BEAKER) (test code 40 mmHg 35-45 = 384) PO2 ARTERIAL (BEAKER) (test code = 92 mmHg 80-90 H 385) O2 SATURATION ARTERIAL (BEAKER) 97.5 % 96.0-97.0 H (test code = 386) HCO3 ARTERIAL (BEAKER) (test code 29 mmol/L 21-29 = 388) BASE EXCESS ARTERIAL (BEAKER) 4.8 mmol/L -2.0-3.0 H (test code = 387) PATIENT TEMPERATURE (BEAKER) (test 37.0 C code = 1818) FIO2 (BEAKER) (test code = 1819) 60.0 % CBC W/PLT COUNT & AUTO [id number] 06:39:00 Test Item Value Reference Range Interpretation Comments WHITE BLOOD CELL COUNT (BEAKER) 8.3 K/ L 3.5-10.5 (test code = 775) RED BLOOD CELL COUNT (BEAKER) 3.15 M/ L 4.63-6.08 L (test code = 761) HEMOGLOBIN (BEAKER) (test code = 10.4 GM/DL 13.7-17.5 L 410) HEMATOCRIT (BEAKER) (test code = 31.8 % 40.1-51.0 L 411) MEAN CORPUSCULAR VOLUME (BEAKER) 101.0 fL 79.0-92.2 H (test code = 753) MEAN CORPUSCULAR HEMOGLOBIN 33.0 pg 25.7-32.2 H (BEAKER) (test code = 751) MEAN CORPUSCULAR HEMOGLOBIN CONC 32.7 GM/DL 32.3-36.5 (BEAKER) (test code = 752) RED CELL DISTRIBUTION WIDTH 12.8 % 11.6-14.4 (BEAKER) (test code = 412) PLATELET COUNT (BEAKER) (test code 94 K/CU MM 150-450 L = 756) MEAN PLATELET VOLUME (BEAKER) 10.7 fL 9.4-12.4 (test code = 754) NUCLEATED RED BLOOD CELLS (BEAKER) 0 /100 WBC 0-0 (test code = 413) NEUTROPHILS RELATIVE PERCENT 68 % (BEAKER) (test code = 429) LYMPHOCYTES RELATIVE PERCENT 15 % (BEAKER) (test code = 430) MONOCYTES RELATIVE PERCENT 16 % (BEAKER) (test code = 431) EOSINOPHILS RELATIVE PERCENT 1 % (BEAKER) (test code = 432) BASOPHILS RELATIVE PERCENT 0 % (BEAKER) (test code = 437) NEUTROPHILS ABSOLUTE COUNT 5.62 K/ L 1.78-5.38 H (BEAKER) (test code = 670) LYMPHOCYTES ABSOLUTE COUNT 1.26 K/ L 1.32-3.57 L (BEAKER) (test code = 414) MONOCYTES ABSOLUTE COUNT (BEAKER) 1.31 K/ L 0.30-0.82 H (test code = 415) EOSINOPHILS ABSOLUTE COUNT 0.04 K/ L 0.04-0.54 (BEAKER) (test code = 416) BASOPHILS ABSOLUTE COUNT (BEAKER) 0.02 K/ L 0.01-0.08 (test code = 417) IMMATURE GRANULOCYTES-RELATIVE 1 % 0-1 PERCENT (BEAKER) (test code = 2801) POCT-GLUCOSE [id number] 05:59:00 Test Item Value Reference Range Interpretation Comments POC-GLUCOSE METER 175 mg/dL 70-110 H TESTED AT [facility] 6720 (BEAKER) (test code = SURAJ [place] 1538) [id number] BLOOD GAS, [id number] 21:35:00 Test Item Value Reference Range Interpretation Comments PH ARTERIAL (BEAKER) (test code = 7.43 7.35-7.45 383) PCO2 ARTERIAL (BEAKER) (test code 40 mmHg 35-45 = 384) PO2 ARTERIAL (BEAKER) (test code = 80 mmHg 80-90 385) O2 SATURATION ARTERIAL (BEAKER) 96.1 % 96.0-97.0 (test code = 386) HCO3 ARTERIAL (BEAKER) (test code 26 mmol/L 21-29 = 388) BASE EXCESS ARTERIAL (BEAKER) 1.7 mmol/L -2.0-3.0 (test code = 387) PATIENT TEMPERATURE (BEAKER) (test 36.9 C code = 1818) FIO2 (BEAKER) (test code = 1819) 60.0 % POCT-GLUCOSE [id number] 21:31:00 Test Item Value Reference Range Interpretation Comments POC-GLUCOSE METER 194 mg/dL 70-110 H TESTED AT [facility] 6720 (BEAKER) (test code = SURAJ [place] 1538) [address] OXYGEN SATURATION, [id number] 19:33:00 Test Item Value Reference Range Interpretation Comments O2 SATURATION (MEASURED) (BEAKER) 68.6 % (test code = 1455) For occult hypoperfusionLACTIC ACID, VENOUS, WHOLE [id number] 16:49:00 Test Item Value Reference Range Interpretation Comments LACTATE BLOOD VENOUS (2) (BEAKER) 1.0 mmol/L 0.5-2.2 (test code = 2872) BLOOD GAS, [id number] 16:43:00 Test Item Value Reference Range Interpretation Comments PH VENOUS (BEAKER) (test code = 7.39 7.32-7.42 701) PCO2 VENOUS (BEAKER) (test code = 44 mmHg 41-51 755) PO2 VENOUS (BEAKER) (test code = 29 mmHg 25-40 702) O2 SATURATION VENOUS (BEAKER) 59.6 % 40.0-70.0 (test code = 703) HCO3 VENOUS (BEAKER) (test code = 26 mmol/L 21-29 705) BASE EXCESS VENOUS (BEAKER) (test 0.6 mmol/L -2.0-3.0 code = 704) PATIENT TEMPERATURE (BEAKER) (test 35.3 C code = 1818) FIO2 (BEAKER) (test code = 1819) 60.0 % CBC W/PLT COUNT & AUTO [id number] 16:37:00 Test Item Value Reference Range Interpretation Comments WHITE BLOOD CELL COUNT (BEAKER) 13.4 K/ L 3.5-10.5 H (test code = 775) RED BLOOD CELL COUNT (BEAKER) 3.36 M/ L 4.63-6.08 L (test code = 761) HEMOGLOBIN (BEAKER) (test code = 11.0 GM/DL 13.7-17.5 L 410) HEMATOCRIT (BEAKER) (test code = 34.1 % 40.1-51.0 L 411) MEAN CORPUSCULAR VOLUME (BEAKER) 101.5 fL 79.0-92.2 H (test code = 753) MEAN CORPUSCULAR HEMOGLOBIN 32.7 pg 25.7-32.2 H (BEAKER) (test code = 751) MEAN CORPUSCULAR HEMOGLOBIN CONC 32.3 GM/DL 32.3-36.5 (BEAKER) (test code = 752) RED CELL DISTRIBUTION WIDTH 12.7 % 11.6-14.4 (BEAKER) (test code = 412) PLATELET COUNT (BEAKER) (test 132 K/CU MM 150-450 L code = 756) MEAN PLATELET VOLUME (BEAKER) 10.6 fL 9.4-12.4 (test code = 754) NUCLEATED RED BLOOD CELLS 0 /100 WBC 0-0 (BEAKER) (test code = 413) (CELLAVISION MANUAL DIFF)[id number] 16:37:00 Test Item Value Reference Range Interpretation Comments NEUTROPHILS - REL 80 % (CELLAVISION)(BEAKER) (test code = 2816) LYMPHOCYTES - REL 9 % (CELLAVISION)(BEAKER) (test code = 2817) MONOCYTES - REL 8 % (CELLAVISION)(BEAKER) (test code = 2818) BANDS - REL (CELLAVISION)(BEAKER) 3 % 0-10 (test code = 2826) NEUTROPHILS - ABS 10.72 K/ul 1.78-5.38 H (CELLAVISION)(BEAKER) (test code = 2830) LYMPHOCYTES - ABS 1.21 K/ul 1.32-3.57 L (CELLAVISION)(BEAKER) (test code = 2831) MONOCYTES - ABS 1.07 K/uL 0.30-0.82 H (CELLAVISION)(BEAKER) (test code = 2832) BANDS - ABS (CELLAVISION)(BEAKER) 0.40 K/uL 0.00-0.80 (test code = 2840) TOTAL COUNTED (BEAKER) (test code 100 = 1351) RBC MORPHOLOGY (BEAKER) (test code Normal = 762) WBC MORPHOLOGY (BEAKER) (test code Normal = 487) PLT MORPHOLOGY (BEAKER) (test code Normal = 486) ARTIFACT (CELLAVISION)(BEAKER) Present (test code = 3432) PLATELET CONCENTRATION Decreased (CELLAVISION)(BEAKER) (test code = 3438) Received comment: User comments: Slide comments:POCT-GLUCOSE [id number] 16:30:00 Test Item Value Reference Range Interpretation Comments POC-GLUCOSE METER 239 mg/dL 70-110 H TESTED AT [facility] 67[address] (BEAKER) (test code = SURAJ [place] 1538) [id number] BLOOD GAS, [id number] 13:33:00 Test Item Value Reference Range Interpretation Comments PH ARTERIAL (BEAKER) (test code = 7.38 7.35-7.45 383) PCO2 ARTERIAL (BEAKER) (test code 43 mmHg 35-45 = 384) PO2 ARTERIAL (BEAKER) (test code 74 mmHg 80-90 L = 385) O2 SATURATION ARTERIAL (BEAKER) 94.6 % 96.0-97.0 L (test code = 386) HCO3 ARTERIAL (BEAKER) (test code 25 mmol/L 21-29 = 388) BASE EXCESS ARTERIAL (BEAKER) -0.2 mmol/L -2.0-3.0 (test code = 387) PATIENT TEMPERATURE (BEAKER) 37.0 C (test code = 1818) FIO2 (BEAKER) (test code = 1819) 32.0 % [id number] 13:09:00 Test Item Value Reference Range Interpretation Comments MAGNESIUM (BEAKER) 2.2 mg/dL 1.6-2.6 Specimen slightly (test code = 627) hemolyzed BASIC METABOLIC [id number] 13:09:00 Test Item Value Reference Range Interpretation Comments SODIUM (BEAKER) 141 meq/L 136-145 (test code = 381) POTASSIUM (BEAKER) 4.4 meq/L 3.5-5.1 Specimen slightly (test code = 379) hemolyzed CHLORIDE (BEAKER) 110 meq/L 98-107 H (test code = 382) CO2 (BEAKER) (test 25 meq/L 22-29 code = 355) BLOOD UREA NITROGEN 19 mg/dL 7-21 (BEAKER) (test code = 354) CREATININE (BEAKER) 1.11 mg/dL 0.57-1.25 Specimen slightly (test code = 358) hemolyzed GLUCOSE RANDOM 204 mg/dL 70-105 H (BEAKER) (test code = 652) CALCIUM (BEAKER) 8.6 mg/dL 8.4-10.2 (test code = 697) EGFR (BEAKER) (test 69 mL/min/1.73 ESTIMA CARMEN GFR IS code = 1092) sq m NOT ACCURATE CREATININE CLEARANCE IN PREDICTING GLOMERULAR FILTRATION RATE . ESTIMATED GFR I S NOT APPLICABLE FOR DIALYSIS PATIEN TS. CALCIUM, [id number] 12:44:00 Test Item Value Reference Range Interpretation Comments CALCIUM IONIZED (BEAKER) (test 1.14 mmol/L 1.12-1.27 code = 698) PH, BLOOD (BEAKER) (test code = 7.34 1810) [id number] 11:12:00 Test Item Value Reference Range Interpretation Comments MAGNESIUM (BEAKER) (test code = 2.1 mg/dL 1.6-2.6 627) Check Serum Magnesium level 2 hours after IV magnesium replacement.GLUCOSE-STAT [id number] 11:00:00 Test Item Value Reference Range Interpretation Comments GLUCOSE RANDOM (BEAKER) (test code 194 mg/dL 70-110 H = 652) HGB/HCT (H&H) - STAT [id number] 11:00:00 Test Item Value Reference Range Interpretation Comments HEMOGLOBIN (BEAKER) (test code = 12.5 g/dL 13.0-16.8 L 410) HEMATOCRIT (BEAKER) (test code = 37.0 % 40.0-50.0 L 411) SODIUM NA-STAT [id number] 10:58:00 Test Item Value Reference Range Interpretation Comments SODIUM (BEAKER) (test code = 381) 138 meq/L 135-148 POTASSIUM-STAT [id number] 10:58:00 Test Item Value Reference Range Interpretation Comments POTASSIUM (BEAKER) (test code = 4.2 meq/L 3.6-5.5 379) CBC W/PLT COUNT & AUTO [id number] 09:53:00 Test Item Value Reference Range Interpretation Comments WHITE BLOOD CELL COUNT (BEAKER) 14.0 K/ L 3.5-10.5 H (test code = 775) RED BLOOD CELL COUNT (BEAKER) 4.02 M/ L 4.63-6.08 L (test code = 761) HEMOGLOBIN (BEAKER) (test code = 12.9 GM/DL 13.7-17.5 L 410) HEMATOCRIT (BEAKER) (test code = 39.7 % 40.1-51.0 L 411) MEAN CORPUSCULAR VOLUME (BEAKER) 98.8 fL 79.0-92.2 H (test code = 753) MEAN CORPUSCULAR HEMOGLOBIN 32.1 pg 25.7-32.2 (BEAKER) (test code = 751) MEAN CORPUSCULAR HEMOGLOBIN CONC 32.5 GM/DL 32.3-36.5 (BEAKER) (test code = 752) RED CELL DISTRIBUTION WIDTH 12.6 % 11.6-14.4 (BEAKER) (test code = 412) PLATELET COUNT (BEAKER) (test 170 K/CU MM 150-450 code = 756) MEAN PLATELET VOLUME (BEAKER) 10.6 fL 9.4-12.4 (test code = 754) NUCLEATED RED BLOOD CELLS 0 /100 WBC 0-0 (BEAKER) (test code = 413) NEUTROPHILS RELATIVE PERCENT 69 % (BEAKER) (test code = 429) LYMPHOCYTES RELATIVE PERCENT 16 % (BEAKER) (test code = 430) MONOCYTES RELATIVE PERCENT 14 % (BEAKER) (test code = 431) EOSINOPHILS RELATIVE PERCENT 0 % (BEAKER) (test code = 432) BASOPHILS RELATIVE PERCENT 0 % (BEAKER) (test code = 437) NEUTROPHILS ABSOLUTE COUNT 9.67 K/ L 1.78-5.38 H (BEAKER) (test code = 670) LYMPHOCYTES ABSOLUTE COUNT 2.23 K/ L 1.32-3.57 (BEAKER) (test code = 414) MONOCYTES ABSOLUTE COUNT (BEAKER) 1.94 K/ L 0.30-0.82 H (test code = 415) EOSINOPHILS ABSOLUTE COUNT 0.01 K/ L 0.04-0.54 L (BEAKER) (test code = 416) BASOPHILS ABSOLUTE COUNT (BEAKER) 0.05 K/ L 0.01-0.08 (test code = 417) IMMATURE GRANULOCYTES-RELATIVE 1 % 0-1 PERCENT (BEAKER) (test code = 2801) [id number] 05:10:00 Test Item Value Reference Range Interpretation Comments MAGNESIUM (BEAKER) 2.3 mg/dL 1.6-2.6 Specimen slightly (test code = 627) hemolyzed [id number] 05:10:00 Test Item Value Reference Range Interpretation Comments PHOSPHORUS (BEAKER) 3.9 mg/dL 2.3-4.7 Specimen slightly (test code = 604) hemolyzed BASIC METABOLIC [id number] 05:10:00 Test Item Value Reference Range Interpretation Comments SODIUM (BEAKER) 141 meq/L 136-145 (test code = 381) POTASSIUM (BEAKER) 4.6 meq/L 3.5-5.1 Specimen slightly (test code = 379) hemolyzed CHLORIDE (BEAKER) 110 meq/L 98-107 H (test code = 382) CO2 (BEAKER) (test 24 meq/L 22-29 code = 355) BLOOD UREA NITROGEN 19 mg/dL 7-21 (BEAKER) (test code = 354) CREATININE (BEAKER) 1.08 mg/dL 0.57-1.25 Specimen slightly (test code = 358) hemolyzed GLUCOSE RANDOM 184 mg/dL 70-105 H (BEAKER) (test code = 652) CALCIUM (BEAKER) 8.7 mg/dL 8.4-10.2 (test code = 697) EGFR (BEAKER) (test 72 mL/min/1.73 ESTIMA CARMEN GFR IS code = 1092) sq m NOT ACCURATE CREATININE CLEARANCE IN PREDICTING GLOMERULAR FILTRATION RATE . ESTIMATED GFR I S NOT APPLICABLE FOR DIALYSIS PATIEN TS. RAD, CHEST, 1 VIEW, NON [id number] 04:15:00while patient is intubated or has chest [...] Arechigaeport Verified Date/Time: 07/07/2018 04:15:31 Reading Location: [address] Reading Room POCT-GLUCOSE [id number] 22:22:00 Test Item Value Reference Range Interpretation Comments POC-GLUCOSE METER 208 mg/dL 70-110 H TESTED AT [facility] 6720 (BEAKER) (test code = SURAJ [place] 1538) [id number] BLOOD GAS, [id number] 20:12:00 Test Item Value Reference Range Interpretation Comments PH ARTERIAL (BEAKER) (test code = 7.40 7.35-7.45 383) PCO2 ARTERIAL (BEAKER) (test code 38 mmHg 35-45 = 384) PO2 ARTERIAL (BEAKER) (test code 88 mmHg 80-90 = 385) O2 SATURATION ARTERIAL (BEAKER) 96.6 % 96.0-97.0 (test code = 386) HCO3 ARTERIAL (BEAKER) (test code 23 mmol/L 21-29 = 388) BASE EXCESS ARTERIAL (BEAKER) -1.4 mmol/L -2.0-3.0 (test code = 387) PATIENT TEMPERATURE (BEAKER) 37.4 C (test code = 1818) FIO2 (BEAKER) (test code = 1819) 40.0 % CBC W/PLT COUNT & AUTO [id number] 19:32:00 Test Item Value Reference Range Interpretation Comments WHITE BLOOD CELL COUNT (BEAKER) 16.5 K/ L 3.5-10.5 H (test code = 775) RED BLOOD CELL COUNT (BEAKER) 4.34 M/ L 4.63-6.08 L (test code = 761) HEMOGLOBIN (BEAKER) (test code = 14.4 GM/DL 13.7-17.5 410) HEMATOCRIT (BEAKER) (test code = 42.5 % 40.1-51.0 411) MEAN CORPUSCULAR VOLUME (BEAKER) 97.9 fL 79.0-92.2 H (test code = 753) MEAN CORPUSCULAR HEMOGLOBIN 33.2 pg 25.7-32.2 H (BEAKER) (test code = 751) MEAN CORPUSCULAR HEMOGLOBIN CONC 33.9 GM/DL 32.3-36.5 (BEAKER) (test code = 752) RED CELL DISTRIBUTION WIDTH 12.3 % 11.6-14.4 (BEAKER) (test code = 412) PLATELET COUNT (BEAKER) (test 142 K/CU MM 150-450 L code = 756) MEAN PLATELET VOLUME (BEAKER) 10.3 fL 9.4-12.4 (test code = 754) NUCLEATED RED BLOOD CELLS 0 /100 WBC 0-0 (BEAKER) (test code = 413) (CELLAVISION MANUAL DIFF)[id number] 19:32:00 Test Item Value Reference Range Interpretation Comments NEUTROPHILS - REL 74 % (CELLAVISION)(BEAKER) (test code = 2816) LYMPHOCYTES - REL 11 % (CELLAVISION)(BEAKER) (test code = 2817) MONOCYTES - REL 9 % (CELLAVISION)(BEAKER) (test code = 2818) BANDS - REL (CELLAVISION)(BEAKER) 6 % 0-10 (test code = 2826) NEUTROPHILS - ABS 12.21 K/ul 1.78-5.38 H (CELLAVISION)(BEAKER) (test code = 2830) LYMPHOCYTES - ABS 1.82 K/ul 1.32-3.57 (CELLAVISION)(BEAKER) (test code = 2831) MONOCYTES - ABS 1.49 K/uL 0.30-0.82 H (CELLAVISION)(BEAKER) (test code = 2832) BANDS - ABS (CELLAVISION)(BEAKER) 0.99 K/uL 0.00-0.80 H (test code = 2840) TOTAL COUNTED (BEAKER) (test code 100 = 1351) RBC MORPHOLOGY (BEAKER) (test code Normal = 762) WBC MORPHOLOGY (BEAKER) (test code Normal = 487) PLT MORPHOLOGY (BEAKER) (test code Normal = 486) POCT-GLUCOSE [id number] 18:56:00 Test Item Value Reference Range Interpretation Comments POC-GLUCOSE METER 206 mg/dL 70-110 H TESTED AT [facility] 6720 (BEAKER) (test code = SURAJ [place] 1538) [id number] BASIC METABOLIC [id number] 17:20:00 Test Item Value Reference Range Interpretation Comments SODIUM (BEAKER) 139 meq/L 136-145 (test code = 381) POTASSIUM (BEAKER) 5.2 meq/L 3.5-5.1 H Specimen slightly (test code = 379) hemolyzed CHLORIDE (BEAKER) 108 meq/L 98-107 H (test code = 382) CO2 (BEAKER) (test 22 meq/L 22-29 code = 355) BLOOD UREA NITROGEN 21 mg/dL 7-21 (BEAKER) (test code = 354) CREATININE (BEAKER) 1.08 mg/dL 0.57-1.25 Specimen slightly (test code = 358) hemolyzed GLUCOSE RANDOM 213 mg/dL 70-105 H (BEAKER) (test code = 652) CALCIUM (BEAKER) 9.1 mg/dL 8.4-10.2 (test code = 697) EGFR (BEAKER) (test 72 mL/min/1.73 ESTIMA CARMEN GFR IS code = 1092) sq m NOT ACCURATE CREATININE CLEARANCE IN PREDICTING GLOMERULAR FILTRATION RATE . ESTIMATED GFR I S NOT APPLICABLE FOR DIALYSIS PATIEN TS. LACTIC ACID, ARTERIAL, WHOLE [id number] 16:50:00 Test Item Value Reference Range Interpretation Comments LACTATE BLOOD ARTERIAL (2) 1.2 mmol/L 0.5-2.2 (BEAKER) (test code = 2874) [id number] 16:45:00 Test Item Value Reference Range Interpretation Comments MAGNESIUM (BEAKER) 2.7 mg/dL 1.6-2.6 H Specimen slightly (test code = 627) hemolyzed [id number] 16:45:00 Test Item Value Reference Range Interpretation Comments PHOSPHORUS (BEAKER) 3.6 mg/dL 2.3-4.7 Specimen slightly (test code = 604) hemolyzed [id number] 16:45:00 Test Item Value Reference Range Interpretation Comments POTASSIUM (BEAKER) 5.1 meq/L 3.5-5.1 Specimen slightly (test code = 379) hemolyzed [id number] 16:45:00 Test Item Value Reference Range Interpretation Comments SODIUM (BEAKER) (test code = 381) 137 meq/L 136-145 [id number] 16:45:00 Test Item Value Reference Range Interpretation Comments GLUCOSE RANDOM (BEAKER) (test code 193 mg/dL 70-105 H = 652) [id number] 16:39:00 Test Item Value Reference Range Interpretation Comments PROTIME (BEAKER) (test code = 15.4 seconds 11.7-14.7 H 759) INR (BEAKER) (test code = 370) 1.2 <=5.9 PARTIAL THROMBOPLASTIN TIME 28.7 seconds 22.5-36.0 (BEAKER) (test code = 760) RECOMMENDED COUMADIN/WARFARIN INR THERAPY RANGESSTANDARD DOSE: 2.0 - 3.0 Includes: PROPHYLAXIS forvenous thrombosis, systemic embolization; TREATMENT for venous thrombosis and/or pulmonary embolus.HIGH RISK: Target INR is 2.5-3.5 for patients with mechanical heart valves.[id number] 16:39:00 Test Item Value Reference Range Interpretation Comments FIBRINOGEN LEVEL (BEAKER) (test 282 mg/dl 225-434 code = 658) PROTHROMBIN [id number] 16:38:00 Test Item Value Reference Range Interpretation Comments PROTIME (BEAKER) (test code = 15.4 seconds 11.7-14.7 H 759) INR (BEAKER) (test code = 370) 1.2 <=5.9 RECOMMENDED COUMADIN/WARFARIN INR THERAPY RANGESSTANDARD DOSE: 2.0 - 3.0 Includes: PROPHYLAXIS forvenous thrombosis, systemic embolization; TREATMENT for venous thrombosis and/or pulmonary embolus.HIGH RISK: Target INR is 2.5-3.5 for patients with mechanical heart valves.RAD, CHEST, 1 VIEW, NON [id number] 16:16:00Reason for exam:->s/p CABGShould this be performed at the bedside?->YesFINAL REPORT TECHNIQUE: Frontal chest radiograph dated 07/06/2018. CLINICAL HISTORY: S/P CABG COMPARISON STUDY: Chest radiograph dated 07/05/2018 Impression:Endotracheal tube is 4cm above the annette. Right-sided internal jugular vascular line is seen with the tip projected over t he superior vena cava/right atrial junction. Enteric tube is seen with the tip in the region of the gastric body. Left-sided chest tube and mediastinal drain are in place. There is left retrocardiac atelectasis. No pneumothorax. Cardiomediastinal silhouette is stable in size. No pulmonary edema. Sternotomy wires are intact and well aligned. Signed: Mir Schreiber MDReport Verified Date/Time: 07/06/2018 16:16:23 Reading Location: [facility] Radiology Reading Room EN SATURATION, [id number] 16:00:00 Test Item Value Reference Range Interpretation Comments O2 SATURATION (MEASURED) (BEAKER) 64.6 % (test code = 1455) BLOOD GAS, [id number] 15:59:00 Test Item Value Reference Range Interpretation Comments PH ARTERIAL (BEAKER) (test code = 7.35 7.35-7.45 383) PCO2 ARTERIAL (BEAKER) (test code 45 mmHg 35-45 = 384) PO2 ARTERIAL (BEAKER) (test code 80 mmHg 80-90 = 385) O2 SATURATION ARTERIAL (BEAKER) 95.7 % 96.0-97.0 L (test code = 386) HCO3 ARTERIAL (BEAKER) (test code 24 mmol/L 21-29 = 388) BASE EXCESS ARTERIAL (BEAKER) -1.9 mmol/L -2.0-3.0 (test code = 387) PATIENT TEMPERATURE (BEAKER) 36.2 C (test code = 1818) FIO2 (BEAKER) (test code = 1819) 50.0 % [id number] 15:14:00 Test Item Value Reference Range Interpretation Comments ACTIVATED CLOTTING TIME 103 sec TEST ED AT [place] [address] ([facility]) (test code = SURAJ Colon [place] [address]) [id number] 15:14:00 Test Item Value Reference Range Interpretation Comments ACTIVATED CLOTTING TIME 423 sec TEST ED AT [place] [address] ([facility]) (test code = SURAJ Colon [place] [address]) [id number] 15:14:00 Test Item Value Reference Range Interpretation Comments ACTIVATED CLOTTING TIME 384 sec TEST ED AT [place] [address] ([facility]) (test code = SURAJ Colon [place] [address]) [id number] THROMBOELASTOGRAPH (TEG)2018-07-06 15:08:00 Test Item Value Reference Range Interpretation Comments TEG ACTIVATED CLOTTING TIME 3.8 minutes 4.0-7.0 L (BEAKER) (test code = 1407) TEG FIBRINOGEN ACTIVITY (BEAKER) 64.5 degrees 61.0-73.0 (test code = 1408) TEG PLT. AGGREGATION (BEAKER) 57.2 MM 55.0-65.0 (test code = 1409) TEG FIBRINOLYSIS (BEAKER) (test 16.0 % 0.0-5.0 H code = 1410) TGH ACTIVATED CLOTTING TIME 4.2 minutes 4.0-7.0 (BEAKER) (test code = 1411) TGH FIBRINOGEN ACTIVITY (BEAKER) 65.6 degrees 61.0-73.0 (test code = 1412) TGH PLT. AGGREGATION (BEAKER) 53.0 MM 55.0-65.0 L (test code = 1413) TGH FIBRINOLYSIS (BEAKER) (test 0.0 % 0.0-5.0 code = 1414) PLATELET [id number] 14:31:00 Test Item Value Reference Range Interpretation Comments PLATELET COUNT (BEAKER) (test 125 K/CU MM 150-450 L code = 756) [id number] 14:18:00 Test Item Value Reference Range Interpretation Comments FIBRINOGEN LEVEL (BEAKER) (test 406 mg/dl 225-434 code = 658) [id number] 14:18:00 Test Item Value Reference Range Interpretation Comments PARTIAL THROMBOPLASTIN TIME 24.4 seconds 22.5-36.0 (BEAKER) (test code = 760) PROTHROMBIN [id number] 14:17:00 Test Item Value Reference Range Interpretation Comments PROTIME (BEAKER) (test code = 14.1 seconds 11.7-14.7 759) INR (BEAKER) (test code = 370) 1.1 <=5.9 RECOMMENDED COUMADIN/WARFARIN INR THERAPY RANGESSTANDARD DOSE: 2.0 - 3.0 Includes: PROPHYLAXIS forvenous thrombosis, systemic embolization; TREATMENT for venous thrombosis and/or pulmonary embolus.HIGH RISK: Target INR is 2.5-3.5 for patients with mechanical heart valves.GLUCOSE-STAT [id number] 14:03:00 Test Item Value Reference Range Interpretation Comments GLUCOSE RANDOM (BEAKER) (test code 165 mg/dL 70-110 H = 652) SODIUM NA-STAT [id number] 14:03:00 Test Item Value Reference Range Interpretation Comments SODIUM (BEAKER) (test code = 381) 133 meq/L 135-148 L HGB/HCT (H&H) - STAT [id number] 14:03:00 Test Item Value Reference Range Interpretation Comments HEMOGLOBIN (BEAKER) (test code = 12.5 g/dL 13.0-16.8 L 410) HEMATOCRIT (BEAKER) (test code = 37.0 % 40.0-50.0 L 411) POTASSIUM-STAT [id number] 14:02:00 Test Item Value Reference Range Interpretation Comments POTASSIUM (BEAKER) (test code = 4.4 meq/L 3.6-5.5 379) BLOOD GAS, [id number] 14:02:00 Test Item Value Reference Range Interpretation Comments PH ARTERIAL (BEAKER) (test code = 7.35 7.35-7.45 383) PCO2 ARTERIAL (BEAKER) (test code 47 mmHg 35-45 H = 384) PO2 ARTERIAL (BEAKER) (test code 142 mmHg 80-90 H = 385) O2 SATURATION ARTERIAL (BEAKER) 98.8 % 96.0-97.0 H (test code = 386) HCO3 ARTERIAL (BEAKER) (test code 26 mmol/L 21-29 = 388) BASE EXCESS ARTERIAL (BEAKER) -0.8 mmol/L -2.0-3.0 (test code = 387) PATIENT TEMPERATURE (BEAKER) 35.0 C (test code = 1818) FIO2 (BEAKER) (test code = 1819) 100.0 % BLOOD GAS, [id number] 13:22:00 Test Item Value Reference Range Interpretation Comments PH VENOUS (BEAKER) 7.34 7.32-7.42 This is a corrected (test code = 701) result. Pr evious result was 7.36 on 07/06/2018 at 13 13 TRIPLE VALVE TESTER PCO2 VENOUS (BEAKER) 46 mmHg 41-51 This is a corrected (test code = 755) result. Pr evious result was 44 m mHg on 07/06/2018 at 1313 TRIPLE VALVE TESTER PO2 VENOUS (BEAKER) 46 mmHg 25-40 H This is a corrected (test code = 702) result. Pr evious result was 282 mmHg on 07/06/2018 at 1313 TRIPLE VALVE TESTER O2 SATURATION VENOUS 93.4 % 40.0-70.0 H This is a corrected (BEAKER) (test code = result . Previous 703) result was 99.6 % on 07/06/2018 at 13 13 TRIPLE VALVE TESTER HCO3 VENOUS (BEAKER) 27 mmol/L 21-29 (test code = 705) BASE EXCESS VENOUS -1.8 mmol/L -2.0-3.0 (BEAKER) (test code = 704) PATIENT TEMPERATURE 28.2 C (BEAKER) (test code = 1818) FIO2 (BEAKER) (test 65.0 % code = 1819) BLOOD GAS, [id number] 13:15:00 Test Item Value Reference Range Interpretation Comments PH ARTERIAL (BEAKER) (test code = 7.36 7.35-7.45 383) PCO2 ARTERIAL (BEAKER) (test code 44 mmHg 35-45 = 384) PO2 ARTERIAL (BEAKER) (test code 282 mmHg 80-90 H = 385) O2 SATURATION ARTERIAL (BEAKER) 99.6 % 96.0-97.0 H (test code = 386) HCO3 ARTERIAL (BEAKER) (test code 27 mmol/L 21-29 = 388) BASE EXCESS ARTERIAL (BEAKER) -1.8 mmol/L -2.0-3.0 (test code = 387) PATIENT TEMPERATURE (BEAKER) 28.2 C (test code = 1818) FIO2 (BEAKER) (test code = 1819) 65.0 % SODIUM NA-STAT [id number] 13:15:00 Test Item Value Reference Range Interpretation Comments SODIUM (BEAKER) (test code = 381) 132 meq/L 135-148 L GLUCOSE-STAT [id number] 13:15:00 Test Item Value Reference Range Interpretation Comments GLUCOSE RANDOM (BEAKER) (test code 183 mg/dL 70-110 H = 652) HGB/HCT (H&H) - STAT [id number] 13:15:00 Test Item Value Reference Range Interpretation Comments HEMOGLOBIN (BEAKER) (test code = 11.4 g/dL 13.0-16.8 L 410) HEMATOCRIT (BEAKER) (test code = 34.0 % 40.0-50.0 L 411) POTASSIUM-STAT [id number] 13:14:00 Test Item Value Reference Range Interpretation Comments POTASSIUM (BEAKER) (test code = 3.9 meq/L 3.6-5.5 379) SODIUM NA-STAT [id number] 13:07:00 Test Item Value Reference Range Interpretation Comments SODIUM (BEAKER) (test code = 381) 138 meq/L 135-148 POTASSIUM-STAT [id number] 13:07:00 Test Item Value Reference Range Interpretation Comments POTASSIUM (BEAKER) (test code = 4.1 meq/L 3.6-5.5 379) HGB/HCT (H&H) - STAT [id number] 13:07:00 Test Item Value Reference Range Interpretation Comments HEMOGLOBIN (BEAKER) (test code = 14.7 g/dL 13.0-16.8 410) HEMATOCRIT (BEAKER) (test code = 43.0 % 40.0-50.0 411) BLOOD GAS, [id number] 13:07:00 Test Item Value Reference Range Interpretation Comments PH ARTERIAL (BEAKER) (test code = 7.24 7.35-7.45 L 383) PCO2 ARTERIAL (BEAKER) (test code 66 mmHg 35-45 H = 384) PO2 ARTERIAL (BEAKER) (test code 217 mmHg 80-90 H = 385) O2 SATURATION ARTERIAL (BEAKER) 99.3 % 96.0-97.0 H (test code = 386) HCO3 ARTERIAL (BEAKER) (test code 28 mmol/L 21-29 = 388) BASE EXCESS ARTERIAL (BEAKER) -1.6 mmol/L -2.0-3.0 (test code = 387) PATIENT TEMPERATURE (BEAKER) 36.4 C (test code = 1818) FIO2 (BEAKER) (test code = 1819) 100.0 % GLUCOSE-STAT [id number] 13:07:00 Test Item Value Reference Range Interpretation Comments GLUCOSE RANDOM (BEAKER) (test code 157 mg/dL 70-110 H = 652) CALCIUM, [id number] 13:06:00 Test Item Value Reference Range Interpretation Comments CALCIUM IONIZED (BEAKER) (test 1.13 mmol/L 1.12-1.27 code = 698) PH, BLOOD (BEAKER) (test code = 7.23 1810) [id number] 12:49:00 Test Item Value Reference Range Interpretation Comments ACTIVATED CLOTTING TIME 472 sec TEST ED AT [place] [address] (BEAKER) (test code = [place] 441) [address] POCT-GLUCOSE [id number] 08:01:00 Test Item Value Reference Range Interpretation Comments POC-GLUCOSE METER 201 mg/dL 70-110 H TESTED AT [place] [address] ([facility]) (test code = SUR[place]INSKI [place] 1538) [address] [id number] 06:43:00 Test Item Value Reference Range Interpretation Comments PARTIAL THROMBOPLASTIN TIME 109.3 seconds 22.5-36.0 H (BEAKER) (test code = 760) CBC W/PLT COUNT & AUTO [id number] 06:24:00 Test Item Value Reference Range Interpretation Comments WHITE BLOOD CELL COUNT (BEAKER) 6.2 K/ L 3.5-10.5 (test code = 775) RED BLOOD CELL COUNT (BEAKER) 4.68 M/ L 4.63-6.08 (test code = 761) HEMOGLOBIN (BEAKER) (test code = 15.1 GM/DL 13.7-17.5 410) HEMATOCRIT (BEAKER) (test code = 45.4 % 40.1-51.0 411) MEAN CORPUSCULAR VOLUME (BEAKER) 97.0 fL 79.0-92.2 H (test code = 753) MEAN CORPUSCULAR HEMOGLOBIN 32.3 pg 25.7-32.2 H (BEAKER) (test code = 751) MEAN CORPUSCULAR HEMOGLOBIN CONC 33.3 GM/DL 32.3-36.5 (BEAKER) (test code = 752) RED CELL DISTRIBUTION WIDTH 12.2 % 11.6-14.4 (BEAKER) (test code = 412) PLATELET COUNT (BEAKER) (test 153 K/CU MM 150-450 code = 756) MEAN PLATELET VOLUME (BEAKER) 10.5 fL 9.4-12.4 (test code = 754) NUCLEATED RED BLOOD CELLS 0 /100 WBC 0-0 (BEAKER) (test code = 413) NEUTROPHILS RELATIVE PERCENT 44 % (BEAKER) (test code = 429) LYMPHOCYTES RELATIVE PERCENT 39 % (BEAKER) (test code = 430) MONOCYTES RELATIVE PERCENT 13 % (BEAKER) (test code = 431) EOSINOPHILS RELATIVE PERCENT 4 % (BEAKER) (test code = 432) BASOPHILS RELATIVE PERCENT 1 % (BEAKER) (test code = 437) NEUTROPHILS ABSOLUTE COUNT 2.71 K/ L 1.78-5.38 (BEAKER) (test code = 670) LYMPHOCYTES ABSOLUTE COUNT 2.38 K/ L 1.32-3.57 (BEAKER) (test code = 414) MONOCYTES ABSOLUTE COUNT (BEAKER) 0.81 K/ L 0.30-0.82 (test code = 415) EOSINOPHILS ABSOLUTE COUNT 0.23 K/ L 0.04-0.54 (BEAKER) (test code = 416) BASOPHILS ABSOLUTE COUNT (BEAKER) 0.04 K/ L 0.01-0.08 (test code = 417) IMMATURE GRANULOCYTES-RELATIVE 0 % 0-1 PERCENT (BEAKER) (test code = 2801) [id number] 01:14:00 Test Item Value Reference Range Interpretation Comments PARTIAL THROMBOPLASTIN TIME 90.5 seconds 22.5-36.0 H (BEAKER) (test code = 760) 6 hours after starting heparin infusion and as indicated per sliding scale PROTHROMBIN [id number] 01:12:00 Test Item Value Reference Range Interpretation Comments PROTIME (BEAKER) (test code = 14.2 seconds 11.7-14.7 759) INR (BEAKER) (test code = 370) 1.1 <=5.9 RECOMMENDED COUMADIN/WARFARIN INR THERAPY RANGESSTANDARD DOSE: 2.0 - 3.0 Includes: PROPHYLAXIS forvenous thrombosis, systemic embolization; TREATMENT for venous thrombosis and/or pulmonary embolus.HIGH RISK: Target INR is 2.5-3.5 for patients with mechanical heart valves.6 hours after starting heparin infusion and as indicated per sliding [id number] 01:02:00 Test Item Value Reference Range Interpretation Comments MAGNESIUM (BEAKER) 2.9 mg/dL 1.6-2.6 H Specimen slightly (test code = 627) hemolyzed COMPREHENSIVE METABOLIC [id number] 01:02:00 Test Item Value Reference Range Interpretation Comments TOTAL PROTEIN 8.0 gm/dL 6.0-8.3 Specimen sligh tly (BEAKER) (test code = hemoly zed 770) ALBUMIN (BEAKER) 4.1 g/dL 3.5-5.0 Specimen sl ightly (test code = 1145) hemolyzed ALKALINE PHOSPHATASE 92 U/L 40-150 (BEAKER) (test code = 346) BILIRUBIN TOTAL 0.5 mg/dL 0.2-1.2 Specimen sli ghtly (BEAKER) (test code = hemoly zed 377) SODIUM (BEAKER) (test 137 meq/L 136-145 code = 381) POTASSIUM (BEAKER) 3.9 meq/L 3.5-5.1 Specimen slightly (test code = 379) hemolyzed CHLORIDE (BEAKER) 101 meq/L 98-107 (test code = 382) CO2 (BEAKER) (test 19 meq/L 22-29 L code = 355) BLOOD UREA NITROGEN 25 mg/dL 7-21 H (BEAKER) (test code = 354) CREATININE (BEAKER) 1.44 mg/dL 0.57-1.25 H Specimen slightly (test code = 358) hemolyzed GLUCOSE RANDOM 193 mg/dL 70-105 H (BEAKER) (test code = 652) CALCIUM (BEAKER) 9.4 mg/dL 8.4-10.2 (test code = 697) AST (SGOT) (BEAKER) 58 U/L 5-34 H Specimen slightly (test code = 353) hemolyzed ALT (SGPT) (BEAKER) 63 U/L 6-55 H Specimen slightly (test code = 347) hemolyzed EGFR (BEAKER) (test 51 mL/min/1.73 ESTIMA CARMEN GFR IS code = 1092) sq m NOT ACCURATE CREATININE CLEARANCE IN PREDICTING GLOMERULAR FILTRATION RATE . ESTIMATED GFR I S NOT APPLICABLE FOR DIALYSIS PATIEN TS. Specimen markedly lipemicCBC W/PLT COUNT & AUTO [id number] 00:44:00 Test Item Value Reference Range Interpretation Comments WHITE BLOOD CELL COUNT (BEAKER) 7.3 K/ L 3.5-10.5 (test code = 775) RED BLOOD CELL COUNT (BEAKER) 4.63 M/ L 4.63-6.08 (test code = 761) HEMOGLOBIN (BEAKER) (test code = 15.5 GM/DL 13.7-17.5 410) HEMATOCRIT (BEAKER) (test code = 44.7 % 40.1-51.0 411) MEAN CORPUSCULAR VOLUME (BEAKER) 96.5 fL 79.0-92.2 H (test code = 753) MEAN CORPUSCULAR HEMOGLOBIN 33.5 pg 25.7-32.2 H (BEAKER) (test code = 751) MEAN CORPUSCULAR HEMOGLOBIN CONC 34.7 GM/DL 32.3-36.5 (BEAKER) (test code = 752) RED CELL DISTRIBUTION WIDTH 12.2 % 11.6-14.4 (BEAKER) (test code = 412) PLATELET COUNT (BEAKER) (test 192 K/CU MM 150-450 code = 756) MEAN PLATELET VOLUME (BEAKER) 10.6 fL 9.4-12.4 (test code = 754) NUCLEATED RED BLOOD CELLS 0 /100 WBC 0-0 (BEAKER) (test code = 413) NEUTROPHILS RELATIVE PERCENT 48 % (BEAKER) (test code = 429) LYMPHOCYTES RELATIVE PERCENT 36 % (BEAKER) (test code = 430) MONOCYTES RELATIVE PERCENT 12 % (BEAKER) (test code = 431) EOSINOPHILS RELATIVE PERCENT 3 % (BEAKER) (test code = 432) BASOPHILS RELATIVE PERCENT 1 % (BEAKER) (test code = 437) NEUTROPHILS ABSOLUTE COUNT 3.46 K/ L 1.78-5.38 (BEAKER) (test code = 670) LYMPHOCYTES ABSOLUTE COUNT 2.65 K/ L 1.32-3.57 (BEAKER) (test code = 414) MONOCYTES ABSOLUTE COUNT (BEAKER) 0.84 K/ L 0.30-0.82 H (test code = 415) EOSINOPHILS ABSOLUTE COUNT 0.23 K/ L 0.04-0.54 (BEAKER) (test code = 416) BASOPHILS ABSOLUTE COUNT (BEAKER) 0.06 K/ L 0.01-0.08 (test code = 417) IMMATURE GRANULOCYTES-RELATIVE 1 % 0-1 PERCENT (BEAKER) (test code = 2801) POCT-GLUCOSE [id number] 21:33:00 Test Item Value Reference Range Interpretation Comments POC-GLUCOSE METER 286 mg/dL 70-110 H TESTED AT [facility] [address] ([facility]) (test code = [place] 1538) [id number] 19:12:00 Test Item Value Reference Range Interpretation Comments PARTIAL THROMBOPLASTIN TIME 64.6 seconds 22.5-36.0 H (BEAKER) (test code = 760) POCT-GLUCOSE [id number] 18:10:00 Test Item Value Reference Range Interpretation Comments POC-GLUCOSE METER 165 mg/dL 70-110 H TESTED AT [facility] [address] ([facility]) (test code = SURAJ Colon [facility] 1538) [address] POCT-GLUCOSE [id number] 12:50:00 Test Item Value Reference Range Interpretation Comments POC-GLUCOSE METER 152 mg/dL 70-110 H TESTED AT [facility] [address] ([facility]) (test code = SURAJ Colon [facility] 1538) [address] HEMOGLOBIN [id number] 10:06:00 Test Item Value Reference Range Interpretation Comments HEMOGLOBIN A1C ([facility]) (test code = 7.0 % 4.3-6.1 H 368) [id number] 09:01:00 Test Item Value Reference Range Interpretation Comments PARTIAL THROMBOPLASTIN TIME 68.3 seconds 22.5-36.0 H ([facility]) (test code = 760) PLATELET AGGREGATION: FUNCTION [id number] 08:44:00 Test Item Value Reference Range Interpretation Comments WEAK ADP 84 % 60-91 RESULT([facility]) (test code = 2135) PLATELET FUNCTION 60-100% indicates SCREEN INTERP ([facility]) normal platelet (test code = 2173) function [id number] Cindy Velasquez MD ([facility]) (test code = (electronic signature) 2622) PLATELET COUNT AGG 175 K/CU MM 150-[address] ([facility]) (test code = 2656) Platelet Function Screen results may be falsely low with platelet counts<100,000/cu mm.POCT-GLUCOSE [id number] 08:23:00 Test Item Value Reference Range Interpretation Comments POC-GLUCOSE METER 185 mg/dL 70-110 H TESTED AT [facility] [address] ([facility]) (test code = SURAJ Colon [facility] 1538) [address] RAD, CHEST, 1 VIEW, NON [id number] 04:51:00Reason for exam:- >dyspneaShould this be performed at the bedside?->YesFINAL REPORT History: Dyspnea. Comparison: None. Findings: A single view of t he chest is submitted. Cardiac silhouette is at the upper limits of normal for size but magnified byportable technique. There is central pulmonary vascular prominence and cephalization of the pulmonary vasculature, along with diffuse interstitial prominence, suggestive of pulmonary interstitial edema. There is no focal consolidation, pneumothorax, large pleural effusion or acute bony abnormality.Signed: Kaushik Jackson MDReport Verified Date/Time: 07/05/2018 04:51:23 Reading Location: [address] Reading Room B-TYPE NATRIURETIC FACTOR (BNP)2018-07-05 02:51:00 Test Item Value Reference Range Interpretation Comments B-TYPE NATRIURETIC PEPTIDE (BEAKER) 44 pg/mL 0-100 (test code = 700) [id number] 02:44:00 Test Item Value Reference Range Interpretation Comments MAGNESIUM (BEAKER) (test code = 2.3 mg/dL 1.6-2.6 627) BASIC METABOLIC [id number] 02:44:00 Test Item Value Reference Range Interpretation Comments SODIUM (BEAKER) 139 meq/L 136-145 (test code = 381) POTASSIUM (BEAKER) 3.7 meq/L 3.5-5.1 (test code = 379) CHLORIDE (BEAKER) 103 meq/L 98-107 (test code = 382) CO2 (BEAKER) (test 26 meq/L 22-29 code = 355) BLOOD UREA NITROGEN 21 mg/dL 7-21 (BEAKER) (test code = 354) CREATININE (BEAKER) 1.24 mg/dL 0.57-1.25 (test code = 358) GLUCOSE RANDOM 171 mg/dL 70-105 H (BEAKER) (test code = 652) CALCIUM (BEAKER) 9.8 mg/dL 8.4-10.2 (test code = 697) EGFR (BEAKER) (test 61 mL/min/1.73 ESTIMA CARMEN GFR IS code = 1092) sq m NOT ACCURATE CREATININE CLEARANCE IN PREDICTING GLOMERULAR FILTRATION RATE . ESTIMATED GFR I S NOT APPLICABLE FOR DIALYSIS PATIEN TS. [id number] 02:42:00 Test Item Value Reference Range Interpretation Comments PARTIAL THROMBOPLASTIN TIME 63.2 seconds 22.5-36.0 H (BEAKER) (test code = 760) CBC W/PLT COUNT & AUTO [id number] 02:26:00 Test Item Value Reference Range Interpretation Comments WHITE BLOOD CELL COUNT (BEAKER) 6.9 K/ L 3.5-10.5 (test code = 775) RED BLOOD CELL COUNT (BEAKER) 4.85 M/ L 4.63-6.08 (test code = 761) HEMOGLOBIN (BEAKER) (test code = 15.6 GM/DL 13.7-17.5 410) HEMATOCRIT (BEAKER) (test code = 47.6 % 40.1-51.0 411) MEAN CORPUSCULAR VOLUME (BEAKER) 98.1 fL 79.0-92.2 H (test code = 753) MEAN CORPUSCULAR HEMOGLOBIN 32.2 pg 25.7-32.2 (BEAKER) (test code = 751) MEAN CORPUSCULAR HEMOGLOBIN CONC 32.8 GM/DL 32.3-36.5 (BEAKER) (test code = 752) RED CELL DISTRIBUTION WIDTH 12.4 % 11.6-14.4 (BEAKER) (test code = 412) PLATELET COUNT (BEAKER) (test 175 K/CU MM 150-450 code = 756) MEAN PLATELET VOLUME (BEAKER) 10.1 fL 9.4-12.4 (test code = 754) NUCLEATED RED BLOOD CELLS 0 /100 WBC 0-0 (BEAKER) (test code = 413) NEUTROPHILS RELATIVE PERCENT 50 % (BEAKER) (test code = 429) LYMPHOCYTES RELATIVE PERCENT 35 % (BEAKER) (test code = 430) MONOCYTES RELATIVE PERCENT 12 % (BEAKER) (test code = 431) EOSINOPHILS RELATIVE PERCENT 3 % (BEAKER) (test code = 432) BASOPHILS RELATIVE PERCENT 1 % (BEAKER) (test code = 437) NEUTROPHILS ABSOLUTE COUNT 3.44 K/ L 1.78-5.38 (BEAKER) (test code = 670) LYMPHOCYTES ABSOLUTE COUNT 2.38 K/ L 1.32-3.57 (BEAKER) (test code = 414) MONOCYTES ABSOLUTE COUNT (BEAKER) 0.81 K/ L 0.30-0.82 (test code = 415) EOSINOPHILS ABSOLUTE COUNT 0.19 K/ L 0.04-0.54 (BEAKER) (test code = 416) BASOPHILS ABSOLUTE COUNT (BEAKER) 0.06 K/ L 0.01-0.08 (test code = 417) IMMATURE GRANULOCYTES-RELATIVE 0 % 0-1 PERCENT (BEAKER) (test code = 2801) POCT-GLUCOSE [id number] 21:12:00 Test Item Value Reference Range Interpretation Comments POC-GLUCOSE METER 204 mg/dL 70-110 H TESTED AT [facility] [address] (BEAKER) (test code = SUR[place] 1538) [address] TSH/FREE T4 IF [id number] 19:43:00 Test Item Value Reference Range Interpretation Comments THYROID STIMULATING HORMONE 4.44 uIU/mL 0.35-4.94 (BEAKER) (test code = 772) LIPID [id number] 19:23:00 Test Item Value Reference Range Interpretation Comments TRIGLYCERIDES (BEAKER) (test code = 458 mg/dL 540) CHOLESTEROL (BEAKER) (test code = 285 mg/dL 631) HDL CHOLESTEROL (BEAKER) (test code 42 mg/dL = 976) Calculated LDL not valid if triglyceride >400 mg/dLTriglyceride Reference Range: Low Risk <150 Borderline 150-199 High Risk 200-499 Very High Risk >=500Cholesterol Reference Range: Low Risk <200 Borderline 200-239 High Risk >240HDL Cholesterol Reference Range: Low Risk >=60 High Risk <40LDL Cholesterol ReferenceRange: Optimal <100 Near Optimal 100-129 Borderline 130-159 High 160-189 Very High >=190HEPATIC FUNCTION [id number] 19:23:00 Test Item Value Reference Range Interpretation Comments TOTAL PROTEIN (BEAKER) (test code = 7.5 gm/dL 6.0-8.3 770) ALBUMIN (BEAKER) (test code = 1145) 4.3 g/dL 3.5-5.0 BILIRUBIN TOTAL (BEAKER) (test code 0.9 mg/dL 0.2-1.2 = 377) BILIRUBIN DIRECT (BEAKER) (test 0.3 mg/dL 0.1-0.5 code = 706) ALKALINE PHOSPHATASE (BEAKER) (test 89 U/L 40-150 code = 346) AST (SGOT) (BEAKER) (test code = 76 U/L 5-34 H 353) ALT (SGPT) (BEAKER) (test code = 72 U/L 6-55 H 347) [id number] 19:21:00 Test Item Value Reference Range Interpretation Comments PROTIME (BEAKER) (test code = 13.6 seconds 11.7-14.7 759) INR (BEAKER) (test code = 370) 1.0 <=5.9 PARTIAL THROMBOPLASTIN TIME 28.0 seconds 22.5-36.0 (BEAKER) (test code = 760) RECOMMENDED COUMADIN/WARFARIN INR THERAPY RANGESSTANDARD DOSE: 2.0 - 3.0 Includes: PROPHYLAXIS forvenous thrombosis, systemic embolization; TREATMENT for venous thrombosis and/or pulmonary embolus.HIGH RISK: Target INR is 2.5-3.5 for patients with mechanical heart valves.CBC W/PLT COUNT & AUTO DIFFERENTIAL 2018-07-04 19:05:00 Test Item Value Reference Range Interpretation Comments WHITE BLOOD CELL COUNT (BEAKER) 6.6 K/ L 3.5-10.5 (test code = 775) RED BLOOD CELL COUNT (BEAKER) 4.74 M/ L 4.63-6.08 (test code = 761) HEMOGLOBIN (BEAKER) (test code = 15.3 GM/DL 13.7-17.5 410) HEMATOCRIT (BEAKER) (test code = 46.0 % 40.1-51.0 411) MEAN CORPUSCULAR VOLUME (BEAKER) 97.0 fL 79.0-92.2 H (test code = 753) MEAN CORPUSCULAR HEMOGLOBIN 32.3 pg 25.7-32.2 H (BEAKER) (test code = 751) MEAN CORPUSCULAR HEMOGLOBIN CONC 33.3 GM/DL 32.3-36.5 (BEAKER) (test code = 752) RED CELL DISTRIBUTION WIDTH 12.4 % 11.6-14.4 (BEAKER) (test code = 412) PLATELET COUNT (BEAKER) (test 165 K/CU MM 150-450 code = 756) MEAN PLATELET VOLUME (BEAKER) 9.8 fL 9.4-12.4 (test code = 754) NUCLEATED RED BLOOD CELLS 0 /100 WBC 0-0 (BEAKER) (test code = 413) NEUTROPHILS RELATIVE PERCENT 50 % (BEAKER) (test code = 429) LYMPHOCYTES RELATIVE PERCENT 33 % (BEAKER) (test code = 430) MONOCYTES RELATIVE PERCENT 13 % (BEAKER) (test code = 431) EOSINOPHILS RELATIVE PERCENT 3 % (BEAKER) (test code = 432) BASOPHILS RELATIVE PERCENT 1 % (BEAKER) (test code = 437) NEUTROPHILS ABSOLUTE COUNT 3.27 K/ L 1.78-5.38 (BEAKER) (test code = 670) LYMPHOCYTES ABSOLUTE COUNT 2.20 K/ L 1.32-3.57 (BEAKER) (test code = 414) MONOCYTES ABSOLUTE COUNT (BEAKER) 0.88 K/ L 0.30-0.82 H (test code = 415) EOSINOPHILS ABSOLUTE COUNT 0.17 K/ L 0.04-0.54 (BEAKER) (test code = 416) BASOPHILS ABSOLUTE COUNT (BEAKER) 0.04 K/ L 0.01-0.08 (test code = 417) IMMATURE GRANULOCYTES-RELATIVE 0 % 0-1 PERCENT (BEAKER) (test code = 2807)
[2020-06-28 20:42] LABS: Absolute Lymphocytes (CBC) 2.6 K/uL (0.7-4.9); Basophils % 1.2 % (0-1.3); Hematocrit 44.4 % (39.6-49.0); Lymphocytes % 31.6 % (15.3-44.8); MPV 8.5 fL (7.6-11.3); RBC Red Blood Cell Count 4.57 M/uL (4.33-5.43)
[2020-06-28 20:44] LABS: Protime INR 1.03
[2020-06-28 20:57] LABS: ALT/SGPT 59 U/L (12-78); AST/SGOT 36 U/L (15-37); Albumin 3.8 g/dL (3.4-5.0); Alkaline Phosphatase 99 U/L (45-117); BUN Blood Urea Nitrogen 26 mg/dL (7-18); Bicarbonate 25 mmol/L (21-32); Bilirubin Direct 0.1 mg/dL (0-0.2); Bilirubin Total 0.5 mg/dL (0.2-1.0); Glucose Level 221 mg/dL (74-106); NT PRO-BNP 191 pg/mL (<125); Potassium 3.8 mmol/L (3.5-5.1); Protein, Total 7.3 g/dL (6.4-8.2); Sodium Level 140 mmol/L (136-145); Troponin (Emerg Dept Use Only) < 0.02 ng/mL (0.0-0.045)
--- NOTE | 2020-06-28 21:16 | EDPHYS ---
Physician Documentation [facility] Name: Drake Vallejo Age: 55 yrs Sex: Male : 1965 Arrival Date: 06/28/2020 Time: 19:39 Bed 8 Private MD: ED Physician Pool Melgoza HPI: 06/28 20:44 This 55 yrs old Male presents to ER via Wheelchair with complaints of Chest mh7 Pressure, Blood Pressure Problem, Nausea. 20:44 The patient or guardian reports chest pain that is located primarily in the substernal mh7 area. Onset: last night. The pain does not radiate. Associated signs and symptoms: Pertinent positives: dizziness, nausea, shortness of breath. 20:45 The chest pain is described as tightness. Duration: The patient or guardian reports mh7 multiple episodes, that are intermittent, that wax and wane, with no pattern. Modifying factors: The symptoms are alleviated by remaining still, the symptoms are aggravated by exertion. Severity of pain: At its worst the pain was moderate today, in the emergency department the pain has improved moderately. Historical: - Allergies: 19:48 hydrocet; jd3 - Home Meds: 19:48 aspirin 81 mg Oral TbEC 1 tab once daily [Active]; citalopram 20 mg tab 1 tab once jd3 daily [Active]; lisinopril 2.5 mg Oral tab 1 tab once daily [Active]; metformin 500 mg Oral tr24 1 tab once daily [Active]; glimepiride 2 mg Oral tab 1 tab once daily [Active]; Multiple Vitamins Oral tab [Active]; - PMHx: 19:48 Diabetes - NIDDM; CAD; Depression; Hypertension; Myocardial infarction; jd3 - PSHx: 19:48 CABG; Heart stents; jd3 - Immunization history:: Adult Immunizations up to date. - Social history:: Smoking status: Patient/guardian denies using tobacco, the patient reports quitting approximately 7 years ago. ROS: 20:45 Constitutional: Negative for fever, chills, and weight loss, Eyes: Negative for injury, mh7 pain, redness, and discharge, ENT: Negative for injury, pain, and discharge, Neck: Negative for injury, pain, and swelling, Back: Negative for injury and pain, : Negative for injury, bleeding, discharge, and swelling, MS/Extremity: Negative for injury and deformity, Skin: Negative for injury, rash, and discoloration, Psych: Negative for depression, anxiety, suicide ideation, homicidal ideation, and hallucinations, Allergy/Immunology: Negative for hives, rash, and allergies, Endocrine: Negative for neck swelling, polydipsia, polyuria, polyphagia, and marked weight changes, Hematologic/Lymphatic: Negative for swollen nodes, abnormal bleeding, and unusual bruising. Exam: 20:45 Constitutional: This is a well developed, well nourished patient who is awake, alert, mh7 and in no acute distress. Head/Face: Normocephalic, atraumatic. Eyes: Pupils equal round and reactive to light, extra-ocular motions intact. Lids and lashes normal. Conjunctiva and sclera are non-icteric and not injected. Cornea within normal limits. Periorbital areas with no swelling, redness, or edema. Neck: Trachea midline, no thyromegaly or masses palpated, and no cervical lymphadenopathy. Supple, full range of motion without nuchal rigidity, or vertebral point tenderness. No Meningismus. Chest/axilla: Normal chest wall appearance and motion. Nontender with no deformity. No lesions are appreciated. Cardiovascular: Regular rate and rhythm with a normal S1 and S2. No gallops, murmurs, or rubs. Normal PMI, no JVD. No pulse deficits. Respiratory: Lungs have equal breath sounds bilaterally, clear to auscultation and percussion. No rales, rhonchi or wheezes noted. No increased work of breathing, no retractions or nasal flaring. Abdomen/GI: Soft, non-tender, with normal bowel sounds. No distension or tympany. No guarding or rebound. No evidence of tenderness throughout. Back: No spinal tenderness. No costovertebral tenderness. Full range of motion. Skin: Warm, dry with normal turgor. Normal color with no rashes, no lesions, and no evidence of cellulitis. MS/ Extremity: Pulses equal, no cyanosis. Neurovascular intact. Full, normal range of motion. Neuro: Awake and alert, GCS 15, oriented to person, place, time, and situation. Cranial nerves II-XII grossly intact. Motor strength 5/5 in all extremities. Sensory grossly intact. Cerebellar exam normal. Normal gait. Psych: Awake, alert, with orientation to person, place and time. Behavior, mood, and affect are within normal limits. 21:10 ECG was reviewed by the Attending Physician. [facility] Vital Signs: 19:48 BP 106 / 64; Pulse 78; Resp 18 S; Temp 98.2(TE); Pulse Ox 99% on R/A; Weight 113.4 kg jd3 (R); Height 6 ft. 0 in. (182.88 cm) (R); Pain 3/10; 20:47 BP 97 / 60 Supine; Pulse 72 MON; Pulse Ox 99% ; ds4 20:52 BP 105 / 72 Sitting; Pulse 76; Pulse Ox 99% ; ds4 20:56 BP 108 / 77 Standing; Pulse 83; Pulse Ox 99% ; ds4 21:58 BP 124 / 78; Pulse 55; Resp 19; Pulse Ox 99% ; rr5 22:26 BP 122 / 71; Pulse 55; Resp 16; Pulse Ox 99% ; rr5 23:00 BP 121 / 70; Pulse 59; Resp 19; Pulse Ox 98% ; rr5 19:48 Body Mass Index 33.91 (113.40 kg, 182.88 cm) jd3 MDM: 20:24 Patient medically screened. [facility] 21:10 Differential diagnosis: abnormal EKG, acute myocardial infarction, acute pericarditis, [facility] anxiety, coronary artery disease chest wall pain, congestive heart failure costochondritis, pericarditis. HEART Score: History: Moderately Suspicious (1), ECG: Non specific repolarization disturbance / LBTB / PM (1), Age: > 45 and < 65 years (1), Risk Factors: > or = 3 Risk factors for atherosclerotic disease (2), [Hypercholesterolemia] [Hypertension] [DM] Troponin: < or = 1 x Normal Limit (0), Total Score = 4. 21:13 The patient was given aspirin in the Emergency Department. Data reviewed: vital signs, [facility] nurses notes, old medical records, lab test result(s), cardiac enzymes, CBC, electrolytes, urinalysis, EKG, radiologic studies, plain films. Data interpreted: Pulse oximetry: on room air is 99 %. Interpretation: normal. Counseling: I had a detailed discussion with the patient and/or guardian regarding: the historical points, exam findings, and any diagnostic results supporting the discharge/admit diagnosis, lab results, radiology results, the need for further work-up and treatment in the hospital. 06/29 06:41 Response to treatment: the patient's symptoms have markedly improved after treatment. mh7 06/28 20:12 Order name: Basic Metabolic Panel; Complete Time: 20:59 rr5 06/28 20:12 Order name: CBC with Diff; Complete Time: 20:59 rr5 06/28 20:12 Order name: LFT's; Complete Time: 20:59 rr5 06/28 20:12 Order name: Magnesium; Complete Time: 20:59 rr5 06/28 20:12 Order name: NT PRO-BNP; Complete Time: 20:59 rr5 06/28 20:12 Order name: PT-INR; Complete Time: 20:59 rr5 06/28 20:12 Order name: Troponin (emerg Dept Use Only); Complete Time: 20:59 rr5 06/28 20:12 Order name: XRAY Chest (1 view); Complete Time: 21:34 rr5 06/28 20:33 Order name: Glucose, Ancillary Testing; Complete Time: 20:36 EDMA 06/28 21:10 Order name: Urine Dipstick--Ancillary (enter results); Complete Time: 21:34 ds4 06/28 21:24 Order name: CT Head Brain wo Cont la1 06/28 21:43 Order name: COVID-19 sg 06/28 21:44 Order name: CORONAVIRUS EDMA 06/28 20:12 Order name: EKG; Complete Time: 20:12 rr5 06/28 20:12 Order name: Cardiac monitoring; Complete Time: 20:12 5 06/28 20:12 Order name: EKG - Nurse/Tech; Complete Time: 20:12 5 06/28 20:12 Order name: IV Saline Lock; Complete Time: 20:12 rr5 06/28 20:12 Order name: Labs collected and sent; Complete Time: 20:12 rr5 06/28 20:12 Order name: O2 Per Protocol; Complete Time: 20:12 rr5 06/28 20:12 Order name: O2 Sat Monitoring; Complete Time: 20:12 rr5 06/28 20:26 Order name: Orthostatics; Complete Time: 20:59 mh7 06/28 20:40 Order name: Urine Dipstick-Ancillary (obtain specimen); Complete Time: 20:59 mh7 EC/31 21:10 Rate is 75 beats/min. Rhythm is regular, Normal Sinus Rhythm with Occasional PVCs. QRS 7 [place] is Normal. SC interval is normal. QRS interval is normal. QT interval is normal. No Q waves. T waves are Inverted in leads aVL, V5, V6. No ST changes noted. Clinical impression: NSR w/ Non-specific ST/T Changes. Administered Medications: 21:06 Drug: NS 0.9% 1000 ml Route: IV; Rate: 1000 ml; Site: right forearm; rr5 22:30 Follow up: Response: No adverse reaction; IV Status: Completed infusion; IV Intake: rr5 1000ml 21:27 Drug: Aspirin Chewable Tablet 243 mg {Note: patient took his aspirin 81mg at home, 3 rr5 talets given.} Route: PO; 22:20 Follow up: Response: No adverse reaction rr5 Disposition: 06/28/20 21:15 Hospitalization ordered by bAdoul Alvarez for Observation. Preliminary diagnosis are Chest pain, unspecified, Hyperglycemia, unspecified. - Bed requested for Telemetry/MedSurg (observation). - Status is Observation. rr5 - Condition is Stable. - Problem is an acute exacerbation. - Symptoms have improved. Signatures: Dispatcher [employer] EDMS Rashid Horton, FABIAN-C CHOIRMASTER-Cla1 Molly العلي, RAINA RN cg Victor M Parker RN RN jd3 Hiram Moffett RN RN rr5 Pool Melgoza MD MD 7 Corrections: (The following items were deleted from the chart) 21:51 21:15 Hospitalization Ordered by Abdoul Alvarez DO for Observation. Preliminary cg diagnosis is Chest pain, unspecified; Hyperglycemia, unspecified. Bed requested for Telemetry/MedSurg (observation). Status is Observation. Condition is Stable. Problem is an acute exacerbation. Symptoms have improved. [facility] 21:56 21:51 06/28/2020 21:15 Hospitalization Ordered by Abdoul Alvarez DO for Observation. cg Preliminary diagnosis is Chest pain, unspecified; Hyperglycemia, unspecified. Bed requested for Telemetry/MedSurg (observation). Status is Observation. Condition is Stable. Problem is an acute exacerbation. Symptoms have improved. 23:16 21:56 06/28/2020 21:15 Hospitalization Ordered by Abdoul Alvarez DO for Observation. rr5 Preliminary diagnosis is Chest pain, unspecified; Hyperglycemia, unspecified. Bed requested for Telemetry/MedSurg (observation). Status is Observation. Condition is Stable. Problem is an acute exacerbation. Symptoms have improved. cg
--- NOTE | 2020-06-28 21:16 | ER ---
Nurse's Notes [facility] Name: Drake Vallejo Age: 55 yrs Sex: Male : 1965 Arrival Date: 06/28/2020 Time: 19:39 Bed 8 Private MD: Diagnosis: Chest pain, unspecified;Hyperglycemia, unspecified Presentation: 06/28 19:46 Chief complaint: Patient states: "I have been feeling jelly legs when I stand up with jd3 feeling weak. every time I stand I get real woozy and get hot flashes and my blood pressure goes real low.". Coronavirus screen: At this time, the client does not indicate any symptoms associated with coronavirus-19. Ebola Screen: Patient negative for fever greater than or equal to 101.5 degrees Fahrenheit, and additional compatible Ebola Virus Disease symptoms. Initial Sepsis Screen: Does the patient meet any 2 criteria? No. Patient's initial sepsis screen is negative. Does the patient have a suspected source of infection? No. Patient's initial sepsis screen is negative. Risk Assessment: Do you want to hurt yourself or someone else? Patient reports no desire to harm self or others. Onset of symptoms was June 27, 2020. 19:46 Method Of Arrival: Wheelchair jd3 19:46 Acuity: TERI 2 jd3 Historical: - Allergies: 19:48 hydrocet; jd3 - Home Meds: 19:48 aspirin 81 mg Oral TbEC 1 tab once daily [Active]; citalopram 20 mg tab 1 tab once jd3 daily [Active]; lisinopril 2.5 mg Oral tab 1 tab once daily [Active]; metformin 500 mg Oral tr24 1 tab once daily [Active]; glimepiride 2 mg Oral tab 1 tab once daily [Active]; Multiple Vitamins Oral tab [Active]; - PMHx: 19:48 Diabetes - NIDDM; CAD; Depression; Hypertension; Myocardial infarction; jd3 - PSHx: 19:48 CABG; Heart stents; jd3 - Immunization history:: Adult Immunizations up to date. - Social history:: Smoking status: Patient/guardian denies using tobacco, the patient reports quitting approximately 7 years ago. Screenin:13 Abuse screen: Denies threats or abuse. Denies injuries from another. Nutritional rr5 screening: No deficits noted. Tuberculosis screening: No symptoms or risk factors identified. Fall Risk IV access (20 points). Total Bae Fall Scale indicates No Risk (0-24 pts). Assessment: 20:20 General: Appears in no apparent distress. comfortable, Behavior is calm, cooperative, rr5 appropriate for age. Pain: Denies pain. Complains of pain in chest Pain does not radiate. Pain currently is 0 out of 10 on a pain scale. Quality of pain is described as aching, Pain began gradually, Is intermittent. Neuro: Level of Consciousness is awake, alert, obeys commands, Oriented to person, place, time, Reports dizziness, weakness. Cardiovascular: Reports low bp Capillary refill < 3 seconds Patient's skin is warm and dry. Respiratory: Airway is patent Respiratory effort is even, unlabored, Respiratory pattern is regular, symmetrical. GI: No signs and/or symptoms were reported involving the gastrointestinal system. : No signs and/or symptoms were reported regarding the genitourinary system. EENT: No signs and/or symptoms were reported regarding the EENT system. Derm: Skin is intact, is healthy with good turgor, Skin temperature is warm. 20:20 Musculoskeletal: Capillary refill < 3 seconds, Reports weakness in body right leg and rr5 left leg. 21:30 Reassessment: Patient is alert, oriented x 3, equal unlabored respirations, skin rr5 warm/dry/pink. patient reported no pain and I dont feel dizzy Patient denies pain at this time. Patient states feeling better. Patient states symptoms have improved. 22:26 Reassessment: refused for covid swab, hospitalist and shop supervisor aware. rr5 22:36 Reassessment: Patient appears in no apparent distress at this time. Patient is alert, rr5 oriented x 3, equal unlabored respirations, skin warm/dry/pink. 22:36 Reassessment: patient agreed to stay for admission. rr5 23:10 Reassessment: Patient appears in no apparent distress at this time. Patient is alert, rr5 oriented x 3, equal unlabored respirations, skin warm/dry/pink. transferred to floor awake alert no complaints made. Vital Signs: 19:48 BP 106 / 64; Pulse 78; Resp 18 S; Temp 98.2(TE); Pulse Ox 99% on R/A; Weight 113.4 kg jd3 (R); Height 6 ft. 0 in. (182.88 cm) (R); Pain 3/10; 20:47 BP 97 / 60 Supine; Pulse 72 MON; Pulse Ox 99% ; ds4 20:52 BP 105 / 72 Sitting; Pulse 76; Pulse Ox 99% ; ds4 20:56 BP 108 / 77 Standing; Pulse 83; Pulse Ox 99% ; ds4 21:58 BP 124 / 78; Pulse 55; Resp 19; Pulse Ox 99% ; rr5 22:26 BP 122 / 71; Pulse 55; Resp 16; Pulse Ox 99% ; rr5 23:00 BP 121 / 70; Pulse 59; Resp 19; Pulse Ox 98% ; rr5 19:48 Body Mass Index 33.91 (113.40 kg, 182.88 cm) jd3 ED Course: 19:39 Patient arrived in ED. bp1 19:47 Triage completed. jd3 19:50 Arm band placed on. jd3 19:58 Pool Melgoza MD is Attending Physician. mh7 20:00 Patient has correct armband on for positive identification. Placed in gown. Bed in low rr5 position. Call light in reach. Side rails up X2. hospital monitor on. Pulse ox on. NIBP on. 20:03 Hiram Moffett, RAINA is Primary Nurse. rr5 20:12 No provider procedures requiring assistance completed. EKG done, by ED staff, reviewed rr5 by Pool Melgoza MD. Inserted saline lock: 20 gauge in right forearm, using aseptic technique. Blood collected. Patient maintains SpO2 saturation greater than 95% on room air. 21:06 XRAY Chest (1 view) In Process Unspecified. EDMS 21:14 Abdoul Alvarez DO is Hospitalizing Provider. 7 22:33 Patient admitted, IV remains in place. intact, No redness/swelling at site. rr5 Administered Medications: 21:06 Drug: NS 0.9% 1000 ml Route: IV; Rate: 1000 ml; Site: right forearm; rr5 22:30 Follow up: Response: No adverse reaction; IV Status: Completed infusion; IV Intake: rr5 1000ml 21:27 Drug: Aspirin Chewable Tablet 243 mg {Note: patient took his aspirin 81mg at home, 3 rr5 talets given.} Route: PO; 22:20 Follow up: Response: No adverse reaction rr5 Intake: 22:30 IV: 1000ml; Total: 1000ml. rr5 Outcome: 21:15 Decision to Hospitalize by Provider. [facility] 22:33 Admitted to Med/surg accompanied by tech, via stretcher, room 213, with chart, Report rr5 called to leon 22:33 Condition: stable 22:33 Instructed on the need for admit. 23:16 Patient left the ED. rr5 Signatures: Dispatcher [employer] EDMS Fred Buckley ds4 Victor M Parker RN RN jd3 Hiram Moffett RN RN rr5 Ilda Grijalva Maurice, MD MD 7 Corrections: (The following items were deleted from the chart) 19:58 19:46 Acuity: TERI 3 joshua lewis
[2020-06-28] MEDS ORDERED: NA CHLORIDE 0.9% 1,000 ML ONE (21:17)
[2020-06-28 21:18] LABS: Urine Blood NEGATIVE (NEG); Urine Glucose NEGATIVE (NEG); Urine Protein NEGATIVE (NEG); Urine Specific Gravity 1.025 (1.005-1.030)
--- NOTE | 2020-06-28 21:18 | RAD REPORT ---
EXAM DESCRIPTION: Reynaldo Single View06/28/2020 9:06 pm CLINICAL HISTORY: Chest pain COMPARISON: 2019 FINDINGS: Right cardiophrenic opacity is unchanged compatible with epicardial fat The lungs appear clear of acute infiltrate. The heart is normal size Postsurgical changes involve the chest. IMPRESSION: No acute abnormalities displayed
[2020-06-28] MEDS ORDERED: ASPIRIN 81 MG CHEWABLE TABLET ONE (21:33)
--- NOTE | 2020-06-28 22:40 | P.HP ---
Certification for Inpatient Patient admitted to: Observation With expected LOS: <2 Midnights Patient will require the following post-hospital care: None Practitioner: I am a practitioner with admitting privileges, knowledge of patient current condition, hospital course, and medical plan of care. Services: Services provided to patient in accordance with Admission requirements found in Title 42 Section 412.3 of the Code of Federal Regulations <Rashid Horton - Last Filed: 06/28/20 22:36> Patient admitted to: Observation <Abdoul Alvarez - Last Filed: 06/29/20 11:02> Patient History Date of Service: 06/28/20 Primary Care Provider: Dr. Rene, Dr. Willoughby, Dr. Shah? Reason for admission: Chest pain History of Present Illness: 55-year-old male with history of diabetes mellitus type 2, CAD status post CABG and multiple stent placements presents emergency department for chest pain. Patient reports multiple episodes over the course the last couple of days with chest tightness, chest tightness in his retrosternal with radiation to both arms and associated diaphoresis, shortness of breath, nausea. Patient reports episodes or relieved by rest and taking a deep breath. Patient's workup in the emergency department significant for creatinine of 1.7, GFR 42, BUN 26, blood glucose 221. Patient reports that he had outpatient blood work done with his PCP Dr. Rene and was informed that his creatinine was elevated, patient has been seeing nephrology (probably Dr. Estrada group but patient was uncertain) for management. Patient reports that he had his CABG 2 years ago and he has echocardiogram scheduled with cardiology August 04. Initial troponin negat norma, chest x-ray unremarkable. ED provider wishes to admit patient for further evaluation and management. When I saw the patient in the emergency department he was awake, alert, oriented x3. Patient not experiencing chest pain at this time, disgruntled About the idea of staying in the hospital overnight as this is happened multiple occasions in the past. Patient be admitted for further evaluation and management. - Past Medical/Surgical History Diabetic: Yes -: CAD, CABG, multiple stents x7 -: Hypertension -: Diabetes mellitus type 2 -: Hyperlipidemia -: Former tobacco use -: BPH -: Cardiac catheterization with stent placement times 7 -: Right knee repair -: CABG Psychosocial/ Personal History: Patient is . He has 4 children. 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 - Family History Mother -: Heart disease, Diabetes, Stroke Father -: Cancer - Social History Smoking Status: Former smoker Alcohol use: Yes CD- Drugs: No Caffeine use: No Place of Residence: Home <Rashid Horton - Last Filed: 06/28/20 22:36> Date of Service: 06/29/20 Home medications list reviewed: Yes <Abdoul Alvarez - Last Filed: 06/29/20 11:02> Allergies No Known Allergies Allergy (Verified 06/28/20 23:33) Home Medications: Multivitamin [Multivitamins] 1 tab PO DAILY 02/15/16 Nitroglycerin [Nitrostat*] 0.4 mg SL UD PRN #1 bottle 02/18/16 Glimepiride [Amaryl*] 2 mg PO DAILY 07/03/18 Aspirin [Adult Aspirin] 81 mg PO DAILY 08/12/18 Ascorbic Acid [Vitamin C] 1,000 mg PO DAILY 01/10/19 Lisinopril [Zestril] 2.5 mg PO DAILY 01/10/19 Metformin HCl [Glucophage] 500 mg PO DAILY 01/10/19 Furosemide [Lasix] 40 mg PO DAILY PRN 06/28/20 Atorvastatin Calcium [Lipitor] 40 mg PO BEDTIME #30 tab 06/29/20 Docosahexanoic AC/Epa [Fish Oil 1,000 MG CAP] 1 cap PO BID #60 cap 06/29/20 Review of Systems 10-point ROS is otherwise unremarkable Cardiovascular: Chest Pain, As per HPI <Rashid Horton - Last Filed: 06/28/20 22:36> Physical Examination - Physical Exam General: Alert, In no apparent distress HEENT: Atraumatic, PERRLA, Mucous membr. moist/pink Neck: Supple, 2+ carotid pulse no bruit, No LAD Respiratory: Clear to auscultation bilaterally, Normal air movement Cardiovascular: Regular rate/rhythm, Normal S1 S2 Gastrointestinal: Normal bowel sounds, No tenderness Musculoskeletal: No tenderness Integumentary: No rashes Neurological: Normal speech, Normal strength at 5/5 x4 extr, Normal tone, Normal affect - Studies Laboratory Data (last 24 hrs) 06/28/20 20:10: PT 12.2, INR 1.03 06/28/20 20:10: WBC 8.2, Hgb 15.3, Hct 44.4, Plt Count 174 06/28/20 20:10: Sodium 140, Potassium 3.8, BUN 26 H, Creatinine 1.70 H, Glucose 221 H, Magnesium 2.0, Total Bilirubin 0.5, AST 36, ALT 59, Alkaline Phosphatase 99 <Rashid Horton - Last Filed: 06/28/20 22:36> - Studies Laboratory Data (last 24 hrs) 06/28/20 20:10: PT 12.2, INR 1.03 06/28/20 20:10: WBC 8.2, Hgb 15.3, Hct 44.4, Plt Count 174 06/28/20 20:10: Sodium 140, Potassium 3.8, BUN 26 H, Creatinine 1.70 H, Glucose 221 H, Magnesium 2.0, Total Bilirubin 0.5, AST 36, ALT 59, Alkaline Phosphatase 99 <Abdoul Alvarez - Last Filed: 06/29/20 11:02> Assessment and Plan - Plan Assessment Chest pain rule out ACS Diabetes mellitus type 2 Renal insufficiency, suspect CKD 3 Hyperlipidemia Plan Chest pain rule out ACS: Cardiology consult in place, trend troponins, monitor on telemetry. P.r.n. nitroglycerin and morphine. DVT prophylaxis heparin 5000 units subcutaneous twice daily. Appreciate further input from cardiology. Continue daily aspirin. Will not add beta-isai at this time as patient's blood pressure is running low. Diabetes mellitus type 2: A.c. HS Accu-Cheks, sliding scale insulin therapy. Renal insufficiency, suspect CKD 3: Patient's previous labs here show normal creatinine/GFR but patient reports that his PCP did labs at outside facility showing elevated creatinine. Suspect CKD, will recheck chemistry with morning labs. Consult nephrology as necessary. Hyperlipidemia: Obtain and continue home medications. Discharge Plan: Home Plan to discharge in: 24 Hours - Advance Directives Does patient have a Living Will: No Does patient have a Durable POA for Healthcare: No - Code Status/Comfort Care Code Status Assessed: Yes (Full code) Critical Care: No Time Spent Managing Pts Care (In Minutes): 55 <Rashid Horton - Last Filed: 06/28/20 22:36> - Plan Case discussed in detail with nurse practitioner. Agree with evaluation, assessment and plan of care. Case discussed with cardiology. No cardiac intervention needed at this time. Please see discharge summary for details on recommendations. <Abdoul Alvarez - Last Filed: 06/29/20 11:02>
[2020-06-28] MEDS ORDERED: HYDROCODONE/APAP 5/325 MG TAB PO PRN (22:52)
[2020-06-28] MEDS ORDERED: ONDANSETRON 4 MG/2 ML VIAL IV PRN (22:52)
[2020-06-28] MEDS ORDERED: NITROGLYCERIN 0.4 MG/TAB SL PRN (22:52)
[2020-06-28] MEDS ORDERED: POTASSIUM CL SA 10 MEQ TAB PO ONE (23:10)
[2020-06-28] MEDS: NA CHLORIDE 0.9% 1,000 ML IV SCH (23:38)
[2020-06-29 01:28] VITALS: BMI 35.2
[2020-06-29 03:25] LABS: Absolute Lymphocytes (CBC) 2.2 K/uL (0.7-4.9); Hematocrit 43.8 % (39.6-49.0); Lymphocytes % 39.7 % (15.3-44.8); MPV 8.2 fL (7.6-11.3)
[2020-06-29 03:46] LABS: ALT/SGPT 47 U/L (12-78); AST/SGOT 23 U/L (15-37); Albumin 3.3 g/dL (3.4-5.0); Alkaline Phosphatase 79 U/L (45-117); BUN Blood Urea Nitrogen 22 mg/dL (7-18); Bicarbonate 28 mmol/L (21-32); Bilirubin Total 0.5 mg/dL (0.2-1.0); CKMB Creatine Kinase MB < 1.0 ng/mL (0.3-3.6); Creatine Phosphokinase 92 U/L (39-308); Glucose Level 139 mg/dL (74-106); HDL Cholesterol 39 mg/dL (40-60); LDL Cholesterol, Calculated 139 (<130); Magnesium 2.2 mg/dL (1.8-2.4); Protein, Total 6.6 g/dL (6.4-8.2); Sodium Level 143 mmol/L (136-145); Troponin I < 0.02 ng/mL (0.0-0.045)
[2020-06-29] MEDS: INSULIN -REGULAR HUMAN 50 UNIT/0.5 ML ML SQ SCH ×2 (07:30→11:30)
[2020-06-29] MEDS: CITALOPRAM 10 MG TABLET PO SCH ×2 (08:38→08:56)
[2020-06-29] MEDS: HEPARIN 5000 UNIT/ML 1 ML VIAL SQ SCH ×2 (08:38→08:58)
[2020-06-29] MEDS: NA CHLORIDE 0.9% 1,000 ML IV SCH ×2 (08:39→08:52)
[2020-06-29 08:41] LABS: CKMB Creatine Kinase MB < 1.0 ng/mL (0.3-3.6); Creatine Phosphokinase 94 U/L (39-308); Troponin I < 0.02 ng/mL (0.0-0.045)
[2020-06-29] MEDS ORDERED: ASPIRIN EC 81 MG TAB PO SCH (09:00)
--- NOTE | 2020-06-29 09:49 | P.DS ---
Admission Date: 06/28/20 Discharge Date: 06/29/20 Primary Care Provider: Dr. Rene, Cardiology-Dr. Willoughby, Nephrology-Dr. Shah Disposition: ROUTINE DISCHARGE Discharge Condition: GOOD Reason for Admission: Chest pain Consultations: Cardiology-Dr. Willoughby Procedures: CXR: COMPARISON: 2019 FINDINGS: Right cardiophrenic opacity is unchanged compatible with epicardial fat The lungs appear clear of acute infiltrate. The heart is normal size Postsurgical changes involve the chest. IMPRESSION: No acute abnormalities displayed CT Head: No acute abnormality noted Medical Problem List: Chest pain, hypertension, presyncope related to dehydration and medication with acute on chronic renal disease stage III Diabetes mellitus type 2 [id number] Hypertension Mixed Hyperlipidemia CAD with prior CABG/stent Obstructive sleep apnea Fatigue with subclinical hypothyroidism Obesity, BMI 35.2 Brief History of Present Illness: 55-year-old male with history of diabetes mellitus type 2, CAD with prior CABG/stent, hypertension, chronic renal disease, and hyperlipidemia. Patient reported chest pain, shortness of breath. Patient further reports low blood pressure yesterday. He had been judging food groups. He had checked his blood pressure found to be low. He rested and Re checked. It was still remained low. He reported that he took his Lasix 40 mg that day. He normally uses Lasix as needed. He came to the ER for further evaluation. Initial cardiac enzymes unremarkable. Patient was admitted for further evaluation and treatment. Blood pressure was initially low in the emergency room. He felt improved with IV fluids. Hospital Course: Patient presented with chest pain, hypotension and presyncope. Patient had reported taking Lasix yesterday which he usually does not. Patient had 2 episodes of low blood pressure. Patient appeared dehydrated upon arrival. Patient reported some improvement with IV fluids. Acute on chronic renal disease stage III noted. Patient usually stage II. Patient admitted for observation with IV fluid hydration. No significant EKG changes noted. Cardiac enzymes unremarkable. Renal function back to baseline. Blood pressure controlled. Cardiology was consulted to further evaluate. At discharge recommend to continue 1500 cc per day fluid restriction. Recommend to monitor his weight daily as he does. Recommend to hold Lasix 40 mg if with no significant edema, shortness of breath and if blood pressure systolic less than 110. I will also recommend to hold lisinopril if blood pressure systolic less than 110. Recommend to monitor blood pressure daily. Recommend to maintain blood pressure less than 130/80. Recommend follow up with cardiology in 1 week. Patient made benefit with echo and cardiac stress test as an outpatient. Patient with acute on chronic renal disease stage III. Patient appeared to be dehydrated. Patient received IV fluids. Continue with above recommendations with fluid restriction. Continue to hold lisinopril and Lasix if blood pressure systolic less than 110. Recommend to recheck lab-BMP in 1-2 weeks to monitors progress. Future medications may need to be renally dose. Recommend follow up with nephrology as directed. Patient with hypertension. Blood pressure was low yesterday. Patient takes lisinopril 2.5 mg daily. He primarily takes this for his diabetes. Blood pressure appears to be within normal range at this time with hydration. Continue to hold lisinopril at discharge if blood pressure less than 110 systolic. Recommend to monitor his blood pressure daily. Recommend to maintain his blood pressure less than 130/80. Further adjustment in medication can be done by his PCP. Patient with mixed hyperlipidemia. Patient has been told to take his medication. He has been non compliant. Triglycerides 168, total cholesterol 232, LDL 139, and HDL 39. At discharge will recommend to start Lipitor 40 mg daily and fish oil 1000 mg 1 pill twice daily. Recommend to recheck fasting lipid panel in 4-6 weeks to monitor his progress. Further adjustment can be done by his PCP or cardiology. Patient with history of CAD with prior CABG and stent. As mentioned above cardiac enzymes unremarkable. EKG shows no significant changes. Cardiology was consulted. Patient may continue with nitroglycerin as needed. Patient will continue with aspirin 81 mg daily. Recommend follow up with cardiology in 1-2 weeks to follow up this hospitalization. Patient will likely require outpatient echocardiogram and cardiac stress test to monitor his progress. Patient with diabetes mellitus type 2. This is well controlled. Hemoglobin A1c 6.5. At discharge patient will continue with metformin 500 mg daily and glimepiride 2 mg daily. Recommend to maintain blood sugar less than 140 fasting and less than 200 after meals. Further adjustment can be done by his PCP. Patient with obstructive sleep apnea. Patient compliant with CPAP. He will continue with CPAP at night. Patient reported some fatigue. This appears to be chronic. Tsh 5.1. Free T4 0.77. Patient likely with underlying subclinical hypothyroidism. Recommend to recheck tsh and free T4 in 4-6 weeks. If still abnormal patient may require ini tiation of therapy for hypothyroidism. This can be done with the help of his PCP. Patient with obesity, BMI 35. Patient has done well with his diet. Continue with his current diet at this time. Patient will continue with his supplementation including multi vitamin daily. Vital Signs/Physical Exam: Temp Pulse Resp BP Pulse Ox 97.1 F 61 16 136/89 94 06/29/20 08:00 06/29/20 08:00 06/29/20 08:00 06/29/20 08:00 06/29/20 08:00 General: Alert, In no apparent distress, Oriented x3, Cooperative HEENT: Atraumatic, Mucous membr. moist/pink Neck: Supple Respiratory: Clear to auscultation bilaterally, Normal air movement Cardiovascular: Normal pulses, Regular rate/rhythm Gastrointestinal: Normal bowel sounds, No tenderness, No masses, No rebound, No guarding Musculoskeletal: No erythema, No tenderness, No warmth Integumentary: No tenderness/swelling, No erythema, No warmth, No cyanosis Neurological: Normal speech, Normal strength at 5/5 x4 extr, Normal tone, Normal affect Laboratory Data at Discharge: WBC 5.4 K/uL (4.3-10.9) D 06/29/20 02:54 Hgb 14.7 g/dL (13.6-17.9) 06/29/20 02:54 Hct 43.8 % (39.6-49.0) 06/29/20 02:54 Plt Count 137 K/uL (152-406) L D 06/29/20 02:54 PT 12.2 SECONDS (9.5-12.5) 06/28/20 20:10 INR 1.03 06/28/20 20:10 Sodium 143 mmol/L (136-145) 06/29/20 02:54 Potassium 4.0 mmol/L (3.5-5.1) 06/29/20 02:54 BUN 22 mg/dL (7-18) H 06/29/20 02:54 Creatinine 1.20 mg/dL (0.55-1.3) 06/29/20 02:54 Glucose 139 mg/dL (74-106) H 06/29/20 02:54 Magnesium 2.2 mg/dL (1.8-2.4) 06/29/20 02:54 Total Bilirubin 0.5 mg/dL (0.2-1.0) 06/29/20 02:54 AST 23 U/L (15-37) 06/29/20 02:54 ALT 47 U/L (12-78) 06/29/20 02:54 Alkaline Phosphatase 79 U/L (45-117) 06/29/20 02:54 Troponin I < 0.02 ng/mL (0.0-0.045) 06/29/20 08:00 Triglycerides 268 mg/dL (<150) H 06/29/20 02:54 Cholesterol 232 mg/dL (<200) H 06/29/20 02:54 HDL Cholesterol 39 mg/dL (40-60) L 06/29/20 02:54 Cholesterol/HDL Ratio 5.95 06/29/20 02:54 Home Medications: Multivitamin [Multivitamins] 1 tab PO DAILY 02/15/16 Nitroglycerin [Nitrostat*] 0.4 mg SL UD PRN #1 bottle 02/18/16 Glimepiride [Amaryl*] 2 mg PO DAILY 07/03/18 Aspirin [Adult Aspirin] 81 mg PO DAILY 08/12/18 Ascorbic Acid [Vitamin C] 1,000 mg PO DAILY 01/10/19 Lisinopril [Zestril] 2.5 mg PO DAILY 01/10/19 Metformin HCl [Glucophage] 500 mg PO DAILY 01/10/19 Furosemide [Lasix] 40 mg PO DAILY PRN 06/28/20 Atorvastatin Calcium [Lipitor] 40 mg PO BEDTIME #30 tab 06/29/20 Docosahexanoic AC/Epa [Fish Oil 1,000 MG CAP] 1 cap PO BID #60 cap 06/29/20 New Medications: Docosahexanoic AC/Epa [Fish Oil 1,000 MG CAP] 1 cap PO BID #60 cap Atorvastatin Calcium [Lipitor] 40 mg PO BEDTIME #30 tab Patient Discharge Instructions: 1. Recommend follow up with PCP in 1 week to follow up this hospitalization. 2. Patient presented with chest pain, hypotension and presyncope. Patient had reported taking Lasix yesterday which he usually does not. Patient had 2 episodes of low blood pressure. Patient appeared dehydrated upon arrival. Patient reported some improvement with IV fluids. Acute on chronic renal disease stage III noted. Patient usually stage II. Patient admitted for observation with IV fluid hydration. No significant EKG changes noted. Cardiac enzymes unremarkable. Renal function back to baseline. Blood pressure controlled. Cardiology was consulted to further evaluate. At discharge recommend to continue 1500 cc per day fluid restriction. Recommend to monitor his weight daily as he does. Recommend to hold Lasix 40 mg if with no significant edema, shortness of breath and if blood pressure systolic less than 110. I will also recommend to hold lisinopril if blood pressure systolic less than 110. Recommend to monitor blood pressure daily. Recommend to maintain blood pressure less than 130/80. Recommend follow up with cardiology in 1 week. Patient made benefit with echo and cardiac stress test as an outpatient. 3. Patient with acute on chronic renal disease stage III. Patient appeared to be dehydrated. Patient received IV fluids. Continue with above recommendations with fluid restriction. Continue to hold lisinopril and Lasix if blood pressure systolic less than 110. Recommend follow up with nephrology as directed. Recommend to recheck lab-BMP in 1-2 weeks to monitors progress. Future medications may need to be renally dose. 4. Patient with hypertension. Blood pressure was low yesterday. Patient takes lisinopril 2.5 mg daily. He primarily takes this for his diabetes. Blood pressure appears to be within normal range at this time with hydration. Continue to hold lisinopril at discharge if blood pressure less than 110 systolic. Recommend to monitor his blood pressure daily. Recommend to maintain his blood pressure less than 130/80. Further adjustment in medication can be done by his PCP. 5. Patient with mixed hyperlipidemia. Patient has been told to take his medication. He has been non compliant. Triglycerides 168, total cholesterol 232, LDL 139, and HDL 39. At discharge will recommend to start Lipitor 40 mg daily and fish oil 1000 mg 1 pill twice daily. Recommend to recheck fasting lipid panel in 4-6 weeks to monitor his progress. Further adjustment can be done by his PCP or cardiology. 6. Patient with history of CAD with prior CABG and stent. As mentioned above cardiac enzymes unremarkable. EKG shows no significant changes. Cardiology was consulted. Patient may continue with nitroglycerin as needed. Patient will continue with aspirin 81 mg daily. Recommend follow up with cardiology in 1-2 weeks to follow up this hospitalization. Patient will likely require outpatient echocardiogram and cardiac stress test to monitor his progress. 7. Patient with diabetes mellitus type 2. This is well controlled. Hemoglobin A1c 6.5. At discharge patient will continue with metformin 500 mg daily and glimepiride 2 mg daily. Recommend to maintain blood sugar less than 140 fasting and less than 200 after meals. Further adjustment can be done by his PCP. 8. Patient with obstructive sleep apnea. Patient compliant with CPAP. He will continue with CPAP at night. 9. Patient reported some fatigue. This appears to be chronic. Tsh 5.1. Free T4 0.77. Patient likely with unde rlying subclinical hypothyroidism. Recommend to recheck tsh and free T4 in 4-6 weeks. If still abnormal patient may require initiation of therapy for hypothyroidism. This can be done with the help of his PCP. 10. Patient with obesity, BMI 35. Patient has done well with his diet. Continue with his current diet at this time. Patient will continue with his supplementation including multi vitamin daily. Diet: ADA Activity: Ad marito Followup: Ferny Willoughby MD [Primary Care Provider] - Time spent managing pt's care (in minutes): 55
--- NOTE | 2020-06-29 10:11 | EKG ---
Test Date: 2020-06-28 Test Time: 20:13:53 [place] Attendant: SANTANA MEASUREMENT RESULTS: Intervals: Rate: 75 MA: 146 QRSD: 100 QT: 392 QTc: 437 [place]: P: 53 MA: 146 QRS: -16 T: 51 INTERPRETIVE STATEMENTS: Sinus rhythm with occasional premature ventricular complexes Incomplete right bundle branch block Nonspecific T wave abnormality Abnormal ECG Compared to ECG 05/25/2019 11:10:19 T-wave abnormality now present Electronically Signed On 06-29-20 10:10:03 ORACLE ARCHITECT by Ferny Willoughby
[2020-06-29 10:30] VITALS: O2SAT 94
--- NOTE | 2020-06-29 11:45 | CON ---
Date of Consultation: 06/29/2020 He was admitted with chest pain to Dr. Alvarez' service on 06/28/2020. I saw the patient on 0. Reason For Consultation: More chest pain and syncope. History Of Present Illness: Mr. Vallejo is a 55-year-old white male. He had bypass surgery in 2018. Pr ior to that, has had multiple stents. He also has a history of dyslipidemia and diabetes. He has so me very mild renal insufficiency. He did not really have much in way of chest pain, except for a sonia y minimal ache in the left chest anteriorly that lasted about a minute. His main complaint was synco pe because of orthostatic hypotension. Apparently, he felt that he was swollen. He took some Lasix, but has not had any fluid intake and has been very physically active. His blood pressure dropped do wn to about 78 for the systolic. He denied any palpitation. He denied any fever or chills or cough. Denied any PND, orthopnea. Has had pedal edema that has resolved with Lasix. Past Medical History: Includes diabetes, CAD, depression, hypertension, history of CABG and stent in the past. Allergies: HE IS ALLERGIC TO HYDROCET. Review of Systems: Negative. Social History: Negative. Family History: Positive for heart disease. Medications: Include aspirin, citalopram, lisinopril 2.5 mg daily, metformin 500 mg daily, glimepiri de 2 mg daily. Physical Examination: Vital Signs: When I saw him, his vital signs were stable. He was afebrile. HEENT: Negative. Neck: Supple with no bruit. Chest: Clear to auscultation and percussion. Cardiac: Revealed a regular rhythm and rate. No murmurs, gallops, or rubs. Abdomen: Benign. Extremities: Revealed no clubbing, cyanosis, or edema. Diagnostic Data: Only positive for mixed dyslipidemia. The rest of was rather unremarkable. EKG sh owed incomplete right bundle-branch block with a PVC. Head CT was negative. His chest x-ray was neg ative. His most recent testing from a cardiac standpoint includes a stress test in December 2018 that was normal. He had an echocardiogram that was also normal with ejection fraction of 57% in 2019. Impression And Plan: 1.Syncope secondary to orthostatic hypotension. This may have caused him to have a little bit of ch est pain. His myocardial infarction has been ruled out. His EKG is unremarkable. Chest x-ray is un remarkable. I instructed him to go home with the same medication. I think he really should be on a statin and we will discuss that later. He has been hesitant to have that. His other issues include coronary artery disease, status post coronary artery bypass graft that is stable. 2.Diabetes. 3.Hypertension. 4.Depression. Case was discussed with Dr. Alvarez. He has an appointment coming up with me in [facility] and I will see him then. He can go home today. BRIDGER/KOBE Voice ID: [id number] Report ID: [id number]
[2020-06-29 12:01] VITALS: BP 130/85; TEMP 97.3
--- NOTE | 2020-06-29 12:01 | RAD REPORT ---
EXAM DESCRIPTION: CT - Head Brain Wo Cont - 06/29/2020 4:00 am CLINICAL HISTORY: HEADACHE COMPARISON: None available TECHNIQUE: Axial CT of the head obtained from the skull apex to the skull base without contrast. FINDINGS: No acute intracranial hemorrhage identified. No mass, mass effect, shift of the midline, a bnormal extra-axial fluid collection or CT evidence of acute ischemic change identified. The ventricu lar system and sulcal spaces are mildly enlarged compatible with mild cerebral atrophy. Scattered a reas of hypodensity throughout the supratentorial white matter are nonspecific and may be related to chronic small vessel ischemic change. The visualized paranasal sinuses and mastoid air cells are well aerated. No skull fracture identifi ed. Visualized orbits and globes are unremarkable. Atherosclerotic calcification of the intracranial internal carotid arteries. IMPRESSION: 1. No acute intracranial abnormality by CT criteria. This exam was performed according to our departmental dose-optimization program, which includes autom ated exposure control, adjustment of the mA and/or kV according to patient size and/or use of iterati ve reconstruction technique. Electronically signed by: Jeramy French 06/28/2020 10:59 PM CDT Due to temporary technical issues with the PACS/Fluency reporting system, reports are being signed by the in house radiologists without review as a courtesy to insure prompt reporting. The interpreting radiologist is fully responsible for the content of the report.
[2020-06-29] MEDS ORDERED: ATORVASTATIN 40 MG TAB PO SCH (21:00)
== END 2020-06-29 11:49 | disposition home or self-care (01) ==
LOC: ER 19:37 → ERHOLD 21:53 → 2ND 22:50
PROVIDERS: ADMIT Family Medicine; ATTEND Family Medicine
DX: R07.9 Chest pain, unspecified (principal); I95.1 Orthostatic hypotension; I12.9 Hypertensive chronic kidney disease with stage 1 through stage 4 chronic kidney disease, or unspecified chronic kidney disease; N18.30 Chronic kidney disease, stage 3 unspecified; E86.0 Dehydration; Z20.828 Contact with and (suspected) exposure to other viral communicable diseases; N17.9 Acute kidney failure, unspecified; E11.22 Type 2 diabetes mellitus with diabetic chronic kidney disease; E78.2 Mixed hyperlipidemia; I25.10 Atherosclerotic heart disease of native coronary artery without angina pectoris; Z95.1 Presence of aortocoronary bypass graft; Z95.5 Presence of coronary angioplasty implant and graft; G47.33 Obstructive sleep apnea (adult) (pediatric); E66.9 Obesity, unspecified; Z68.35 Body mass index [BMI] 35.0-35.9, adult; E03.8 Other specified hypothyroidism; F32.9 Major depressive disorder, single episode, unspecified; Z79.82 Long term (current) use of aspirin; Z79.84 Long term (current) use of oral hypoglycemic drugs; R94.31 Abnormal electrocardiogram [ECG] [EKG]; Z87.891 Personal history of nicotine dependence; N40.0 Benign prostatic hyperplasia without lower urinary tract symptoms; I25.2 Old myocardial infarction
CPT/HCPCS: 93005; 85025 ×2; 80048; 36415; 83735 ×2; 82550 ×2; 85610; 80061; 82947 ×3; 80076; 84443; 81003; 83036; 84484 ×3; 82553 ×2; 84439; 80053; 83880; 70450; 71045; 96360; 99285; J7030 ×2; G0378 ×2; J1644

== ENCOUNTER 2021-05-05 09:27 | Emergency (ER) | payer BC ==
--- OUTSIDE RECORDS SUMMARY | 2021-05-05 09:34 | XMS REPORT | Continuity of Care Document ---
:1965 Author Organization [facility] t Address [address] [place] [address] Care Team Providers Name Role Phone Massimo Rene DO Primary Care Physician REBECCA JUSTICE Attending Clinician Unavailable REBECCA JUSTICE Admitting Clinician Unavailable Problems Condition Condition Condition Status Onset Resolution Last Treating Co mments Source Name Details Category Date Date Treatment Clinician Date Coronary Coronary Disease [facility] - disease disease [facility]: Medical involving involving 00 [facility] coronary coronary artery of artery of [facility] heart with heart with angina angina pectoris [...] 2017-[address] myocardial myocardial 09-03 [facility] - infarction infarction 00:00: Me dical ) ) 00 Center Essential Essential Disease Active Met hodi hypertensi hypertensi 3-04 st on on 00:00: Hospita 00 l Type 2 Type 2 Disease Active Methodi diabetes diabetes 304 st mellitus mellitus 00:00: Hospit a without without 00 l complicati complicati on on Obesity Obesity Disease Active Methodi (BMI (BMI 3-04 st 30-39.9) 30-39.9) 00:00: Hospit a 00 l 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 Maternal uncle Stroke [facility] Natural mother Diabetes [facility] Natural mother Heart disease [facility] Natural mother Hypertension [facility] Natural mother Stroke [facility] Paternal uncle Diabetes [facility] Natural father Cancer [facility] Social History Social Habit Start Date Stop Date Quantity Comments Source Alcohol Comment 2018-07-04 2018-07-04 6 beers a [address] [facility]00 [facility] Tobacco use and 2017-10-30 2017-10-[address] exposure 00:00:00 00:00:00 Hospital Alcohol intake 2017-10-30 2017-10-30 Current drinker Metho dist 00:00:00 00:00:00 of alcohol Hospital (finding) Sex Ass[birth year] At [birth year] Zoroastrian 00:00:00 00:00:00 Hospital Smoking Status Start Date Stop Date Source Never sm[facility] Former smoker 2017-10-30 00:00:00 2017-10-30 00:00:00 [facility] Medications Ordered Filled Start Stop Current Ordering [...] MG 17:24: mouth Medical capsule 00 daily. Center nitroglycer 2018-[address] 0[address] in 1-13 mg under [facility] - (NITROSTAT) 17:24: the Medica l 0.4 MG SL 00 tongue. Center tablet citalopram 2017-0 Yes 20mg QD Take 20 mg M ethodi (CeleXA) 20 3-[address] MG tablet 20:54: daily. Hospit a 18 l clopidogrel 2018-0 Yes 75mg QD Take 75 mg Methodi (PLAVIX) 75 3-[address] mg tablet 20:54: daily. Hospit a 18 l carvedilol 2018-0 Yes 25mg Q.5D Take 25 mg M ethodi (COREG) 25 3-[address] MG tablet 20:54: (two) Hospita 18 times a l day with meals. atorvastati 2018-0 Yes 40mg Q.5D Take 40 mg Methodi n (LIPITOR) 3-[address] 40 MG 20:54: (two) Hospita tablet 18 times a l day. aspirin 2018-0 Yes 81mg QD Take 81 mg Meth alejandra (ECOTRIN) 3-[address] 81 MG 20:54: daily. Hospita enteric 18 l coated tablet nitroglycer 2018-[address] 0.4 M ethodi in 3-[address] (NITROSTAT) 20:54: the tongue Hospita 0.4 MG SL 18 every 5 l tablet (five) minutes as needed for chest pain. ascorbic 2018-0 Yes 500mg QD Take 500 Meth alejandra acid, 3-[address] vitamin C, 20:54: mouth Hospit a (VITAMIN C) 18 daily. l 500 MG tablet multivitami 2018-0 Yes 1{tbl} QD Take 1 Me thodi n 3-[address] (THERAGRAN) 20:54: mouth Hospi ta tablet 18 daily. l ranitidine 2018-0 Yes 150mg Take 150 Me thodi (ZANTAC) 3-[address] 150 MG 20:54: mouth Hospita tablet 18 daily. l Procedures This patient has no known procedures. Plan of Care Planned Activity Planned Date Details Comments Source Future Scheduled 2021-07-[address] [facility] - Test 00:00:00 (procedure) [code = [facility] 60242537] Future Scheduled 2021-04-[address] [facility] - Test 00:00:00 (Season Ended) [code = Medic al Center INFLUENZA VACCINE (Season Ended)] Future Scheduled 2020-08-[address] [facility] - Test 00:00:00 (12+) [code = Medical Center DEPRESSION SCREENING (12+)] Future Scheduled 2019-01-[address] [facility] - Test 00:00:00 measurement Medical Center (procedure) [code = [id number]] Future Scheduled 2015 SHINGLES VACCINES ([address] [facility] - Test 00:00:00 of 2) [code = SHINGLES Medic al Center VACCINES (1 of 2)] Future Scheduled 1984-02-14 DTAP/TDAP/TD VACCINES [facility] Test 00:00:00 (1 - Tdap) [code = Medical C enter DTAP/TDAP/TD VACCINES (1 - Tdap)] Future Scheduled 1983 HEPATITIS C [facility]CRE[facility]ING [facility] Test 00:00:00 [code = HEPATITIS C Medical Center SCREENING] Future Scheduled 1977 COVID-19 VACCINE (1) [facility] - Test 00:00:00 [code = COVID-[address] VACCINE (1)] Future Scheduled [address] DIABETIC EYE EXAM [facility] - Test 00:00:00 [code = DIABETIC EYE Medical Center EXAM] Future Scheduled [address] [facility] - Test 00:00:00 examination Medical Center (regime/therapy) [code = 440552849] Future Scheduled 1975 Urine screening for [facility] Test 00:00:00 protein (procedure) [facility] [code = 561378444] Future Scheduled [address] [facility] - Test 00:00:00 0-64 YRS (1 of 1 - Medical C enter PPSV23) [code = PNEUMOCOCCAL VACCINE 0-64 YRS (1 of 1 - PPSV23)] Future Scheduled [address] [facility] - Test 00:00:[address] [facility] colon (procedure) [code = 987601968] Future Scheduled COVID-19 VACCINE (1) [facility] Test [code = COVID-19 VACCINE (1)] Future Scheduled [facility] [code = COLONOSCOPY SCREENING] Future Scheduled SHINGLES VACCINES (#1) [facility] Test [code = SHINGLES VACCINES (#1)] Future Scheduled INFLUENZA VACCINE [facility] Hospital Test [code = INFLUENZA VACCINE] Results Test Description Test Time Test Comments [...] /LPF SOURCE(BEAKER) (test code = 2795) POCT-GLUCOSE [id number] 12:36:00 Test Item Value Reference Range Interpretation Comments POC-GLUCOSE METER 151 mg/dL 70-110 H TESTED AT [facility] 6720 (BEAKER) (test code = SUR[place] 1538) [address] POCT-GLUCOSE [id number] 08:14:00 Test Item Value Reference Range Interpretation Comments POC-GLUCOSE METER 159 mg/dL 70-110 H TESTED AT [facility] 6720 (BEAKER) (test code = [place] 1538) [address] RAD, CHEST, 1 VIEW, NON [id number] 08:10:00Reason for exam:->eval pulmonary congestionShould this be [...] MDReport Verified Date/Time: 07/11/2018 08:10:57 Reading Location: [address] Neuro Reading Room [id number] 05:02:00 Test Item Value Reference Range Interpretation Comments MAGNESIUM (BEAKER) (test code = 2.1 mg/dL 1.6-2.6 627) BASIC METABOLIC [id number] 05:02:00 Test Item Value Reference Range Interpretation [...] 0-0 (BEAKER) (test code = 413) POCT-GLUCOSE [id number] 21:35:00 Test Item Value Reference Range Interpretation Comments POC-GLUCOSE METER 172 mg/dL 70-110 H TESTED AT [place] [address] ([facility]) ([facility] = [facility] [place] 1538) [address] POCT-GLUCOSE [id number] 17:50:00 Test Item Value Reference Range Interpretation Comments POC-GLUCOSE METER 142 mg/dL 70-110 H TESTED AT [place] [id number] ([facility]) (test code = [facility] [place] 1538) [address] B-TYPE NATRIURETIC FACTOR (BNP)2018-07-10 14:23:00 Test Item Value Reference Range Interpretation Comments B-TYPE NATRIURETIC PEPTIDE (BEAKER) 263 pg/mL 0-100 H (test code = 700) POCT-GLUCOSE [id number] 12:30:00 Test Item Value Reference Range Interpretation Comments POC-GLUCOSE METER 162 mg/dL 70-110 H TESTED AT [facility] 6720 (BEAKER) (test code = [place] 1538) [address] POCT-GLUCOSE [id number] 08:28:00 Test Item Value Reference Range Interpretation Comments POC-GLUCOSE METER 248 mg/dL 70-110 H TESTED AT [facility] 6720 (BEAKER) (test code = [place] 1538) [address] RAD, CHEST, 1 VIEW, NON [id number] 07:32:00Reason for exam:->eval pulmonary congestionShould this be [...] MDReport Verified Date/Time: 07/10/2018 07:32:04 Reading Location: [address] Neuro Reading Room [id number] 06:04:00 Test Item Value Reference Range Interpretation Comments MAGNESIUM (BEAKER) (test code = 2.3 mg/dL 1.6-2.6 627) BASIC METABOLIC [id number] 06:04:00 Test Item Value Reference Range Interpretation [...] 0-0 (BEAKER) (test code = 413) POCT-GLUCOSE [id number] 21:23:00 Test Item Value Reference Range Interpretation Comments POC-GLUCOSE METER 166 mg/dL 70-110 H TESTED AT [facility] 6720 (BEAKER) (test code = [place] 1538) [address] [id number] 12:50:00 Test Item Value Reference Range Interpretation Comments POTASSIUM (BEAKER) (test code = 4.0 meq/L 3.5-5.1 379) Check Serum Magnesium level 2 hours after IV magnesium replacement.Check Serum Phosphorus level 4 hours after IV phosphorus replacement or 8 hours after PO replacement completed.Every 8 hours PRN for Creatinine greater than or equal to 2 mg/dL.[id number] 12:50:00 Test Item Value Reference Range Interpretation Comments MAGNESIUM (TAMIR) (test code = 2.3 mg/dL 1.6-2.6 627) Check Serum Magnesium level 2 hours after IV magnesium replacement.Check Serum Phosphorus level 4 hours after IV phosphorus replacement or 8 hours after PO replacement completed.Every 8 hours PRN for Creatinine greater than or equal to 2 mg/dL.[id number] 12:50:00 Test Item Value Reference Range Interpretation Comments PHOSPHORUS (TAMIR) (test code = 1.6 mg/dL 2.3-4.7 L 604) Check Serum Magnesium level 2 hours after IV magnesium replacement.Check Serum Phosphorus level 4 hours after IV phosphorus replacement or 8 hours after PO replacement completed.Every 8 hours PRN for Creatinine greater than or equal to 2 mg/dL.POCT-GLUCOSE [id number] 12:19:00 Test Item Value Reference Range Interpretation Comments POC-GLUCOSE METER 255 mg/dL 70-110 H TESTED AT [facility] 6720 (TAMIR) (test code = [place] 1538) [address] RAD, CHEST, 1 VIEW, NON [id number] 09:46:00while patient is intubated or has chest [...] Zafar MDReportVerified Date/Time: 07/09/2018 09:46:04 Reading Location: [address] Transitional Reading Room POCT-GLUCOSE [id number] 08:01:00 Test Item Value Reference Range Interpretation Comments POC-GLUCOSE METER 173 mg/dL 70-110 H TESTED AT [facility] 6720 (BEAKER) (test code = [place] 1538) [address] [id number] 04:58:00 Test Item Value Reference Range Interpretation Comments PHOSPHORUS (BEAKER) (test code = 2.3 mg/dL 2.3-4.7 604) Check Serum Phosphorus level 4 hours after IV phosphorus replacement or 8 hours after PO replacementcompleted.[id number] 04:58:00 Test Item Value Reference Range Interpretation Comments MAGNESIUM (BEAKER) (test code = 2.3 mg/dL 1.6-2.6 627) Check Serum Phosphorus level 4 hours after IV phosphorus replacement or 8 hours after PO replacementcompleted.BASIC METABOLIC [id number] 04:58:00 Test Item Value Reference Range Interpretation [...] WBC 0-0 (BEAKER) (test code = 413) [id number] 00:40:00 Test Item Value Reference Range Interpretation Comments POTASSIUM (BEAKER) (test code = 3.5 meq/L 3.5-5.1 379) Every 8 hours PRN for Creatinine greater than or equal to 2 mg/dL.POCT-GLUCOSE [id number] 20:50:00 Test Item Value Reference Range Interpretation Comments POC-GLUCOSE METER 171 mg/dL 70-110 H TESTED AT [facility] 6720 (BEAKER) (test code = SURAJ Colon [place] 1538) [address] [id number] 18:19:00 Test Item Value Reference Range Interpretation Comments POTASSIUM (BEAKER) (test code = 3.7 meq/L 3.5-5.1 379) Check Serum Magnesium level 2 hours after IV magnesium replacement.Check Serum Phosphorus level 4 hours after IV phosphorus replacement or 8 hours after PO replacement completed.8 hours after PO replacement [id number] 18:19:00 Test Item Value Reference Range Interpretation Comments MAGNESIUM (BEAKER) (test code = 2.1 mg/dL 1.6-2.6 627) Check Serum Magnesium level 2 hours after IV magnesium replacement.Check Serum Phosphorus level 4 hours after IV phosphorus replacement or 8 hours after PO replacement completed.8 hours after PO replacement [id number] 18:19:00 Test Item Value Reference Range Interpretation [...] mmol/L 1.12-1.27 code = 698) PH, BLOOD ([facility]) (test code = 7.51 1810) Check serum Ionized Calcium level after 4 hours after IV Calcium replacement. POCT-GLUCOSE [id number] 17:17:00 Test Item Value Reference Range Interpretation Comments POC-GLUCOSE METER 195 mg/dL 70-110 H TESTED AT [place] [address] ([facility]) (test code = SURAJ Colon [facility] 1538) [address] POCT-GLUCOSE [id number] 12:17:00 Test Item Value Reference Range Interpretation Comments POC-GLUCOSE METER 231 mg/dL 70-110 H TESTED AT [place] [address] ([facility]) (test code = SURAJ Colon [facility] 1538) [address] RAD, CHEST, 1 VIEW, NON [id number] 09:19:00Reason for exam:- >hypoxiaShould this be performed [...] MDReport Verified Date/Time: 07/08/2018 09:19:57 Reading Location: [facility] C0[facility] Transitional Reading Room [id number] 08:56:00 Test Item Value Reference Range Interpretation Comments PHOSPHORUS (BEAKER) (test code = 1.7 mg/dL 2.3-4.7 L 604) [id number] 08:56:00 Test Item Value Reference Range Interpretation Comments MAGNESIUM (BEAKER) (test code = 2.1 mg/dL 1.6-2.6 627) BASIC METABOLIC [id number] 08:56:00 Test Item Value Reference Range Interpretation [...] APPLICABLE FOR DIALYSIS PATIEN TS. BLOOD GAS, [id number] 08:49:00 Test Item Value Reference Range Interpretation [...] 60.0 % CBC W/PLT COUNT & AUTO [id number] 06:39:00 Test Item Value Reference Range Interpretation [...] PERCENT (BEAKER) (test code = 2801) POCT-GLUCOSE [id number] 05:59:00 Test Item Value Reference Range Interpretation Comments POC-GLUCOSE METER 175 mg/dL 70-110 H TESTED AT [place] [address] (BEAKER) (test code = [facility] [place] 1538) [address] BLOOD GAS, [id number] 21:35:00 Test Item Value Reference Range Interpretation [...] (test code = 1819) 60.0 % POCT-GLUCOSE [id number] 21:31:00 Test Item Value Reference Range Interpretation Comments POC-GLUCOSE METER 194 mg/dL 70-110 H TESTED AT [facility] 6720 (BEAKER) (test code = [facility] [place] 1538) [address] OXYGEN SATURATION, [id number] 19:33:00 Test Item Value Reference Range Interpretation Comments O2 SATURATION (MEASURED) (BEAKER) 68.6 % (test code = 1455) For occult hypoperfusionLACTIC ACID, VENOUS, WHOLE [id number] 16:49:00 Test Item Value Reference Range Interpretation Comments LACTATE BLOOD VENOUS (2) (BEAKER) 1.0 mmol/L 0.5-2.2 (test code = 2872) BLOOD GAS, [id number] 16:43:00 Test Item Value Reference Range Interpretation [...] 60.0 % CBC W/PLT COUNT & AUTO [id number] 16:37:00 Test Item Value Reference Range Interpretation [...] 3438) Received comment: User comments: Slide comments:POCT-GLUCOSE [id number] 16:30:00 Test Item Value Reference Range Interpretation Comments POC-GLUCOSE METER 239 mg/dL 70-110 H TESTED AT [facility] 6720 (BEAKER) (test code = [place] 1538) [address] BLOOD GAS, [id number] 13:33:00 Test Item Value Reference Range Interpretation [...] (BEAKER) (test code = 1819) 32.0 % [id number] 13:09:00 Test Item Value Reference Range Interpretation Comments MAGNESIUM (BEAKER) 2.2 mg/dL 1.6-2.6 Specimen slightly (test code = 627) hemolyzed BASIC METABOLIC [id number] 13:09:00 Test Item Value Reference Range Interpretation [...] NOT APPLICABLE FOR DIALYSIS PATIEN TS. CALCIUM, [id number] 12:44:00 Test Item Value Reference Range Interpretation Comments CALCIUM IONIZED (BEAKER) (test 1.14 mmol/L 1.12-1.27 code = 698) PH, BLOOD (BEAKER) (test code = 7.34 1810) [id number] 11:12:00 Test Item Value Reference Range Interpretation Comments MAGNESIUM (BEAKER) (test code = 2.1 mg/dL 1.6-2.6 627) Check Serum Magnesium level 2 hours after IV magnesium replacement.GLUCOSE-STAT [id number] 11:00:00 Test Item Value Reference Range Interpretation Comments GLUCOSE RANDOM (BEAKER) (test code 194 mg/dL 70-110 H = 652) HGB/HCT (H&H) - STAT [id number] 11:00:00 Test Item Value Reference Range Interpretation Comments HEMOGLOBIN (BEAKER) (test code = 12.5 g/dL 13.0-16.8 L 410) HEMATOCRIT (BEAKER) (test code = 37.0 % 40.0-50.0 L 411) SODIUM NA-STAT [id number] 10:58:00 Test Item Value Reference Range Interpretation Comments SODIUM (BEAKER) (test code = 381) 138 meq/L 135-148 POTASSIUM-STAT [id number] 10:58:00 Test Item Value Reference Range Interpretation Comments POTASSIUM (BEAKER) (test code = 4.2 meq/L 3.6-5.5 379) CBC W/PLT COUNT & AUTO [id number] 09:53:00 Test Item Value Reference Range Interpretation [...] 0-1 PERCENT (BEAKER) (test code = 2801) [id number] 05:10:00 Test Item Value Reference Range Interpretation Comments MAGNESIUM (BEAKER) 2.3 mg/dL 1.6-2.6 Specimen slightly (test code = 627) hemolyzed [id number] 05:10:00 Test Item Value Reference Range Interpretation Comments PHOSPHORUS (BEAKER) 3.9 mg/dL 2.3-4.7 Specimen slightly (test code = 604) hemolyzed BASIC METABOLIC [id number] 05:10:00 Test Item Value Reference Range Interpretation [...] PATIEN TS. RAD, CHEST, 1 VIEW, NON [id number] 04:15:00while patient is intubated or has chest [...] lung consolidation or significant pneumothorax. Signed: Floridalma Arechiga MDReport Verified Date/Time: 07/07/2018 04:15:31 Reading Location: [address] Reading Room POCT-GLUCOSE [id number] 22:22:00 Test Item Value Reference Range Interpretation Comments POC-GLUCOSE METER 208 mg/dL 70-110 H TESTED AT [facility] 6720 ([facility]) (test code = [place] 1538) [address] BLOOD GAS, [id number] 20:12:00 Test Item Value Reference Range Interpretation [...] 40.0 % CBC W/PLT COUNT & AUTO [id number] 19:32:00 Test Item Value Reference Range Interpretation [...] (BEAKER) (test code Normal = 486) POCT-GLUCOSE [id number] 18:56:00 Test Item Value Reference Range Interpretation Comments POC-GLUCOSE METER 206 mg/dL 70-110 H TESTED AT [facility] 6720 (BEAKER) (test code = [place] 1538) [address] BASIC METABOLIC [id number] 17:20:00 Test Item Value Reference Range Interpretation [...] DIALYSIS PATIEN TS. LACTIC ACID, ARTERIAL, WHOLE [id number] 16:50:00 Test Item Value Reference Range Interpretation Comments LACTATE BLOOD ARTERIAL (2) 1.2 mmol/L 0.5-2.2 (BEAKER) (test code = 2874) [id number] 16:45:00 Test Item Value Reference Range Interpretation Comments MAGNESIUM (BEAKER) 2.7 mg/dL 1.6-2.6 H Specimen slightly (test code = 627) hemolyzed [id number] 16:45:00 Test Item Value Reference Range Interpretation Comments PHOSPHORUS (BEAKER) 3.6 mg/dL 2.3-4.7 Specimen slightly (test code = 604) hemolyzed [id number] 16:45:00 Test Item Value Reference Range Interpretation Comments POTASSIUM (BEAKER) 5.1 meq/L 3.5-5.1 Specimen slightly (test code = 379) hemolyzed [id number] 16:45:00 Test Item Value Reference Range Interpretation Comments SODIUM (BEAKER) (test code = 381) 137 meq/L 136-145 [id number] 16:45:00 Test Item Value Reference Range Interpretation Comments GLUCOSE RANDOM (BEAKER) (test code 193 mg/dL 70-105 H = 652) [id number] 16:39:00 Test Item Value Reference Range Interpretation [...] is 2.5-3.5 for patients with mechanical heart valves.[id number] 16:39:00 Test Item Value Reference Range Interpretation Comments FIBRINOGEN LEVEL (BEAKER) (test 282 mg/dl 225-434 code = 658) PROTHROMBIN [id number] 16:38:00 Test Item Value Reference Range Interpretation Comments PROTIME (BEAKER) (test code = 15.4 seconds 11.7-14.7 H 759) INR (BEAKER) (test code = 370) 1.2 <=5.9 RECOMMENDED COUMADIN/WARFARIN INR THERAPY RANGESSTANDARD DOSE: 2.0 - 3.0 Includes: PROPHYLAXIS forvenous thrombosis, systemic embolization; TREATMENT for venous thrombosis and/or pulmonary embolus.HIGH RISK: Target INR is 2.5-3.5 for patients with mechanical heart valves.RAD, CHEST, 1 VIEW, NON [id number] 16:16:00Reason for exam:->s/p CABGShould this be performed [...] are intact and well aligned. Signed: Mir Schreibereport Verified Date/Time: 07/06/2018 16:16:23 Reading Location: [facility] Radiology Reading Room EN SATURATION, [id number] 16:00:00 Test Item Value Reference Range Interpretation Comments O2 SATURATION (MEASURED) (BEAKER) 64.6 % (test code = 1455) BLOOD GAS, [id number] 15:59:00 Test Item Value Reference Range Interpretation [...] (BEAKER) (test code = 1819) 50.0 % [id number] 15:14:00 Test Item Value Reference Range Interpretation Comments ACTIVATED CLOTTING TIME 103 sec TEST ED AT [place] [address] ([facility]) (test code = SURAJ Colon [place] 441) [id number] 15:14:00 Test Item Value Reference Range Interpretation Comments ACTIVATED CLOTTING TIME 423 sec TEST ED AT [place] [address] ([facility]) (test code = SURAJ Colon [place] 441) [id number] 15:14:00 Test Item Value Reference Range Interpretation Comments ACTIVATED CLOTTING TIME 384 sec TEST ED AT [place] [address] ([facility]) (test code = SURAJ Colon [place] 441) [address] THROMBOELASTOGRAPH (TEG)2018-07-06 15:08:00 Test Item Value Reference [...] 0.0 % 0.0-5.0 code = 1414) PLATELET [id number] 14:31:00 Test Item Value Reference Range Interpretation Comments PLATELET COUNT (BEAKER) (test 125 K/CU MM 150-450 L code = 756) [id number] 14:18:00 Test Item Value Reference Range Interpretation Comments FIBRINOGEN LEVEL (BEAKER) (test 406 mg/dl 225-434 code = 658) [id number] 14:18:00 Test Item Value Reference Range Interpretation Comments PARTIAL THROMBOPLASTIN TIME 24.4 seconds 22.5-36.0 (BEAKER) (test code = 760) PROTHROMBIN [id number] 14:17:00 Test Item Value Reference Range Interpretation Comments PROTIME (BEAKER) (test code = 14.1 seconds 11.7-14.7 759) INR (BEAKER) (test code = 370) 1.1 <=5.9 RECOMMENDED COUMADIN/WARFARIN INR THERAPY RANGESSTANDARD DOSE: 2.0 - 3.0 Includes: PROPHYLAXIS forvenous thrombosis, systemic embolization; TREATMENT for venous thrombosis and/or pulmonary embolus.HIGH RISK: Target INR is 2.5-3.5 for patients with mechanical heart valves.GLUCOSE-STAT [id number] 14:03:00 Test Item Value Reference Range Interpretation Comments GLUCOSE RANDOM (BEAKER) (test code 165 mg/dL 70-110 H = 652) SODIUM NA-STAT [id number] 14:03:00 Test Item Value Reference Range Interpretation Comments SODIUM (BEAKER) (test code = 381) 133 meq/L 135-148 L HGB/HCT (H&H) - STAT [id number] 14:03:00 Test Item Value Reference Range Interpretation Comments HEMOGLOBIN (BEAKER) (test code = 12.5 g/dL 13.0-16.8 L 410) HEMATOCRIT (BEAKER) (test code = 37.0 % 40.0-50.0 L 411) POTASSIUM-STAT [id number] 14:02:00 Test Item Value Reference Range Interpretation Comments POTASSIUM (BEAKER) (test code = 4.4 meq/L 3.6-5.5 379) BLOOD GAS, [id number] 14:02:00 Test Item Value Reference Range Interpretation [...] code = 1819) 100.0 % BLOOD GAS, [id number] 13:22:00 Test Item Value Reference Range Interpretation Comments PH VENOUS (BEAKER) 7.34 7.32-7.42 This is a corrected (test code = 701) result. Pr evious result was 7.36 on 07/06/2018 at 13 13 [employer] ATTENDANT PCO2 VENOUS (BEAKER) 46 mmHg 41-51 This is a corrected (test code = 755) result. Pr evious result was 44 m mHg on 07/06/2018 at 1313 [employer] ATTENDANT PO2 VENOUS (BEAKER) 46 mmHg 25-40 H This is a corrected (test code = 702) result. Pr evious result was 282 mmHg on 07/06/2018 at 1313 [employer] ATTENDANT O2 SATURATION VENOUS 93.4 % 40.0-70.0 H This is a corrected (BEAKER) (test code = result . Previous 703) result was 99.6 % on 07/06/2018 at 13 13 [employer] ATTENDANT HCO3 VENOUS (BEAKER) 27 mmol/L 21-29 (test code = 705) BASE EXCESS VENOUS -1.8 mmol/L -2.0-3.0 (BEAKER) (test code = 704) PATIENT TEMPERATURE 28.2 C (BEAKER) (test code = 1818) FIO2 (BEAKER) (test 65.0 % code = 1819) BLOOD GAS, [id number] 13:15:00 Test Item Value Reference Range Interpretation [...] code = 1819) 65.0 % SODIUM NA-STAT [id number] 13:15:00 Test Item Value Reference Range Interpretation Comments SODIUM (BEAKER) (test code = 381) 132 meq/L 135-148 L GLUCOSE-STAT [id number] 13:15:00 Test Item Value Reference Range Interpretation Comments GLUCOSE RANDOM (BEAKER) (test code 183 mg/dL 70-110 H = 652) HGB/HCT (H&H) - STAT [id number] 13:15:00 Test Item Value Reference Range Interpretation Comments HEMOGLOBIN (BEAKER) (test code = 11.4 g/dL 13.0-16.8 L 410) HEMATOCRIT (BEAKER) (test code = 34.0 % 40.0-50.0 L 411) POTASSIUM-STAT [id number] 13:14:00 Test Item Value Reference Range Interpretation Comments POTASSIUM (BEAKER) (test code = 3.9 meq/L 3.6-5.5 379) SODIUM NA-STAT [id number] 13:07:00 Test Item Value Reference Range Interpretation Comments SODIUM (BEAKER) (test code = 381) 138 meq/L 135-148 POTASSIUM-STAT [id number] 13:07:00 Test Item Value Reference Range Interpretation Comments POTASSIUM (BEAKER) (test code = 4.1 meq/L 3.6-5.5 379) HGB/HCT (H&H) - STAT [id number] 13:07:00 Test Item Value Reference Range Interpretation Comments HEMOGLOBIN (BEAKER) (test code = 14.7 g/dL 13.0-16.8 410) HEMATOCRIT (BEAKER) (test code = 43.0 % 40.0-50.0 411) BLOOD GAS, [id number] 13:07:00 Test Item Value Reference Range Interpretation [...] (test code = 1819) 100.0 % GLUCOSE-STAT [id number] 13:07:00 Test Item Value Reference Range Interpretation Comments [facility] (test code 157 mg/dL 70-110 H = 652) CALCIUM, [id number] 13:06:00 Test Item Value Reference Range Interpretation Comments CALCIUM IONIZED (BEAKER) (test 1.13 mmol/L 1.12-1.27 code = 698) PH, BLOOD (AKER) (test code = 7.23 1810) [id number] 12:49:00 Test Item Value Reference Range Interpretation Comments ACTIVATED CLOTTING TIME 472 sec TEST ED AT [place] [address] ([facility]) (test code = SURAJ Colon [facility] 441) [id number] POCT-GLUCOSE [id number] 08:01:00 Test Item Value Reference Range Interpretation Comments POC-GLUCOSE METER 201 mg/dL 70-110 H TESTED AT [place] [address] ([facility]) (test code = SURAJ Colon [facility] 1538) [id number] 06:43:00 Test Item Value Reference Range Interpretation Comments PARTIAL THROMBOPLASTIN TIME 109.3 seconds 22.5-36.0 H ([facility]) (test code = 760) CBC W/PLT COUNT & AUTO [id number] 06:24:00 Test Item Value Reference Range Interpretation Comments WHITE BLOOD CELL COUNT ([facility]) 6.2 K/ L 3.5-10.5 (test code = [...] 0-1 PERCENT (BEAKER) (test code = 2801) [id number] 01:14:00 Test Item Value Reference Range Interpretation Comments PARTIAL THROMBOPLASTIN TIME 90.5 seconds 22.5-36.0 H (BEAKER) (test code = 760) 6 hours after starting heparin infusion and as indicated per sliding scale PROTHROMBIN [id number] 01:12:00 Test Item Value Reference Range Interpretation [...] heparin infusion and as indicated per sliding [id number] 01:02:00 Test Item Value Reference Range Interpretation Comments MAGNESIUM (BEAKER) 2.9 mg/dL 1.6-2.6 H Specimen slightly (test code = 627) hemolyzed COMPREHENSIVE METABOLIC [id number] 01:02:00 Test Item Value Reference Range Interpretation [...] Specimen markedly lipemicCBC W/PLT COUNT & AUTO [id number] 00:44:00 Test Item Value Reference Range Interpretation [...] PERCENT (BEAKER) (test code = 2801) POCT-GLUCOSE [id number] 21:33:00 Test Item Value Reference Range Interpretation Comments POC-GLUCOSE METER 286 mg/dL 70-110 H TESTED AT [place] [address] ([facility]) (test code = SURAJ Colon [facility] 1538) [address] [id number] 19:12:00 Test Item Value Reference Range Interpretation Comments PARTIAL THROMBOPLASTIN TIME 64.6 seconds 22.5-36.0 H (BEAKER) (test code = 760) POCT-GLUCOSE [id number] 18:10:00 Test Item Value Reference Range Interpretation Comments POC-GLUCOSE METER 165 mg/dL 70-110 H TESTED AT [place] [address] ([facility]) (test code = SURAJ Colon [facility] 1538) [address] POCT-GLUCOSE [id number] 12:50:00 Test Item Value Reference Range Interpretation Comments POC-GLUCOSE METER 152 mg/dL 70-110 H TESTED AT [place] [address] ([facility]) (test code = [facility] Darlene [facility] 1538) [address] HEMOGLOBIN [id number] 10:06:00 Test Item Value Reference Range Interpretation Comments HEMOGLOBIN A1C ([facility]) (test code = 7.0 % 4.3-6.1 H 368) [id number] 09:01:00 Test Item Value Reference Range Interpretation Comments PARTIAL THROMBOPLASTIN TIME 68.3 seconds 22.5-36.0 H (BECKYAKER) (test code = 760) PLATELET AGGREGATION: FUNCTION [id number] 08:44:00 Test Item Value Reference Range Interpretation Comments WEAK ADP 84 % 60-91 RESULT(TAMIR) (test code = 2135) PLATELET FUNCTION 60-100% indicates SCREEN INTERP (AKER) normal platelet (test code = 2173) function [id number] Cindy Velasquez MD [facility] (test code = (electronic signature) 2622) PLATELET COUNT AGG 175 K/CU MM 150-450 (BEAKER) (test code = 2656) Platelet Function Screen results may be falsely low with platelet counts<100,000/cu mm.POCT-GLUCOSE [id number] 08:23:00 Test Item Value Reference Range Interpretation Comments POC-GLUCOSE METER 185 mg/dL 70-110 H TESTED AT [facility] 6720 ([facility] (test code = SURAJ Colon [place] 1538) [address] RAD, CHEST, 1 VIEW, NON [id number] 04:51:00Reason for exam:- >dyspneaShould this be performed [...] MDReport Verified Date/Time: 07/05/2018 04:51:23 Reading Location: [address] Reading Room B-TYPE NATRIURETIC FACTOR (BNP)2018-07-05 02:51:00 Test Item Value Reference Range Interpretation Comments B-TYPE NATRIURETIC PEPTIDE (BEAKER) 44 pg/mL 0-100 (test code = 700) [id number] 02:44:00 Test Item Value Reference Range Interpretation Comments MAGNESIUM (BEAKER) (test code = 2.3 mg/dL 1.6-2.6 627) BASIC METABOLIC [id number] 02:44:00 Test Item Value Reference Range Interpretation [...] GFR I S NOT APPLICABLE FOR DIALYSIS PATIBARRERA TS. [id number] 02:42:00 Test Item Value Reference Range Interpretation Comments PARTIAL THROMBOPLASTIN TIME 63.2 seconds 22.5-36.0 H (BEAKER) (test code = 760) CBC W/PLT COUNT & AUTO [id number] 02:26:00 Test Item Value Reference Range Interpretation [...] PERCENT (BEAKER) (test code = 2801) POCT-GLUCOSE [id number] 21:12:00 Test Item Value Reference Range Interpretation Comments POC-GLUCOSE METER 204 mg/dL 70-110 H TESTED AT [facility] 6720 (BEAKER) (test code = [place] 1538) [address] TSH/FREE T4 IF [id number] 19:43:00 Test Item Value Reference Range Interpretation Comments THYROID STIMULATING HORMONE 4.44 uIU/mL 0.35-4.94 (BEAKER) (test code = 772) LIPID [id number] 19:23:00 Test Item Value Reference Range Interpretation [...] 130-159 High 160-189 Very High >=190HEPATIC FUNCTION [id number] 19:23:00 Test Item Value Reference Range Interpretation [...] code = 72 U/L 6-55 H 347) [id number] 19:21:00 Test Item Value Reference Range Interpretation [...]
[2021-05-05] MEDS ORDERED: NA CHLORIDE 0.9% 250 ML ONE (10:23)
[2021-05-05] MEDS ORDERED: CASIRIVIMAB/IMDEVIMAB 10 ML VIAL ONE (10:24)
--- NOTE | 2021-05-05 10:33 | RAD REPORT ---
EXAM DESCRIPTION: RAD - Chest Single View - 05/05/2021 10:20 am CLINICAL HISTORY: Cough;Dyspnea COMPARISON: Chest Single View dated 06/28/2020; Chest Single View dated 05/25/2019; Chest Single View dated 01/10/2019; Chest Single View dated 08/11/2018 FINDINGS: Lines: None. Lungs: Scattered ill-defined bilateral airspace opacities. Prominence of the pulmonary vasculature. Pleural: No significant pleural effusions or pneumothorax. Cardiac: Cardiomegaly. Sternotomy. Bones: No acute fractures. Other: IMPRESSION: Question subtle bilateral airspace disease a could reflect mild multifocal pneumonia .
--- NOTE | 2021-05-05 12:30 | ER ---
Nurse's Notes [facility] Name: Drake Vallejo Age: 56 yrs Sex: Male : 1965 Arrival Date: 05/05/2021 Time: 09:31 Bed 11 Private MD: Diagnosis: Coronavirus infection, unspecified Presentation: 05/05 09:50 Chief complaint: Patient states: Covid positive test here at our lab. His ll1 symptoms started Tuesday. Dr Rene PCP. SOB at times. Coronavirus screen: Vaccine status: Patient reports being unvaccinated. Client denies travel out of the [place] in the last 14 days. congestion, cough unrelated to allergies, difficulty breathing, fatigue, shortness of breath. Ebola Screen: Patient denies travel to an Ebola-affected area in the 21 days before illness onset. Initial Sepsis Screen: Does the patient meet any 2 criteria? No. Patient's initial sepsis screen is negative. Does the patient have a suspected source of infection? Yes: Productive cough/pneumonia. Risk Assessment: Do you want to hurt yourself or someone else? Patient reports no desire to harm self or others. Onset of symptoms was April 29, 2021. 09:50 Method Of Arrival: Ambulatory ll1 09:50 Acuity: TERI 3 ll1 Historical: - Allergies: 09:45 hydrocet; ll1 - PMHx: 09:45 CAD; Depression; Diabetes - NIDDM; Hypertension; Myocardial infarction; Bipolar ll1 disorder; - PSHx: 09:45 heart stents; Coronary artery bypass graft; r knee SX; ll1 - Immunization history:: Client reports having NOT received the Covid vaccine. Flu vaccine status is unknown. - Social history:: Smoking status: Patient denies any tobacco usage or history of. Screenin:07 Abuse screen: Denies threats or abuse. Nutritional screening: No deficits noted. vg1 Tuberculosis screening: No symptoms or risk factors identified. Fall Risk No fall in past 12 months (0 pts). No secondary diagnosis (0 pts). IV access (20 points). Ambulatory Aid- None/Bed Rest/Nurse Assist (0 pts). Gait- Normal/Bed Rest/Wheelchair (0 pts) Mental Status- Oriented to own ability (0 pts). Total Bae Fall Scale indicates No Risk (0-24 pts). Assessment: 10:05 General: Appears in no apparent distress. comfortable, Behavior is calm, cooperative. vg1 Pain: Denies pain. Neuro: Level of Consciousness is awake, alert, obeys commands, Oriented to person, place, time, situation. Cardiovascular: Patient's skin is warm and dry. Respiratory: Reports shortness of breath on exertion cough that is dry, Airway is patent Respiratory effort is even, unlabored, Breath sounds are clear bilaterally. GI: Reports diarrhea. : No signs and/or symptoms were reported regarding the genitourinary system. EENT: No signs and/or symptoms were reported regarding the EENT system. Derm: Skin is intact, is healthy with good turgor. Musculoskeletal: Circulation, motion, and sensation intact. 11:23 Reassessment: Patient appears in no apparent distress at this time. Patient and/or vg1 family updated on plan of care and expected duration. Pain level reassessed. Patient is alert, oriented x 3, equal unlabored respirations, skin warm/dry/pink. Patient denies pain at this time. 12:27 Reassessment: Patient appears in no apparent distress at this time. Patient and/or vg1 family updated on plan of care and expected duration. Pain level reassessed. Patient is alert, oriented x 3, equal unlabored respirations, skin warm/dry/pink. Patient denies pain at this time. 12:43 Reassessment: Received VO from Tony ANAYA to administer Zofran 4 mg IVP x1. vg1 Vital Signs: 09:50 BP 126 / 81; Pulse 87; Resp 20; Temp 98.1; Pulse Ox 96% ; Weight 111.13 kg; Height 6 ll1 ft. 0 in. (182.88 cm); Pain 0/10; 10:06 BP 115 / 69; Pulse 73; Resp 18; Pulse Ox 96% on R/A; vg1 10:20 BP 119 / 74; Pulse 70; Resp 16; Pulse Ox 96% on R/A; vg1 11:23 BP 120 / 72; Pulse 75; Resp 16; Pulse Ox 98% on R/A; vg1 12:27 BP 120 / 80; Pulse 69; Resp 16; Temp 99.3(O); Pulse Ox 98% on R/A; vg1 09:50 Body Mass Index 33.23 (111.13 kg, 182.88 cm) ll1 ED Course: 09:31 Patient arrived in ED. ja2 09:40 Chrystal Jimenez FNP-C is [facility]. kb 09:40 Ken Fregoso MD is Attending Physician. kb 09:45 Arm band placed on. ll1 09:53 Triage completed. ll1 09:56 Kelsi العلي RN is Primary Nurse. vg1 10:07 Patient has correct armband on for positive identification. Bed in low position. Call vg1 light in reach. 10:07 No provider procedures requiring assistance completed. vg1 10:14 Inserted saline lock: 20 gauge in right forearm, using aseptic technique. vg1 10:20 Chest Single View XRAY In Process Unspecified. EDMS 12:43 IV discontinued, intact, bleeding controlled, No redness/swelling at site. Pressure vg1 dressing applied. Administered Medications: 10:21 Drug: REGEN-COV Dose Pack 120 mg/mL-120 mg/mL (EUA) 1 packets Route: IV; Rate: vg1 calculated rate; Site: right forearm; 11:25 Follow up: IV Status: Completed infusion; IV Intake: 260ml vg1 12:39 Drug: Zofran (Ondansetron) 4 mg Route: IVP; Site: right forearm; vg1 12:44 Follow up: Response: Medication administered at discharge. vg1 Intake: 11:25 IV: 260ml; Total: 260ml. vg1 Outcome: 12:29 Discharge ordered by . kb 12:43 Discharged to home ambulatory. vg1 12:43 Condition: stable 12:43 Discharge instructions given to patient, Instructed on discharge instructions, follow up and referral plans. Demonstrated understanding of instructions, follow-up care. 12:44 Patient left the ED. vg1 Signatures: Dispatcher [employer] EDMS Chrystal Jimenez FNP-C FNP-Ckb Garcia, Victoria, RN RN vg1 Nika Gore RN RN ll1 Nava Brian [facility]
[2021-05-05 12:55] VITALS: O2SAT 98
[2021-05-05 12:57] VITALS: BP 120/80; TEMP 99.3
[2021-05-05] MEDS ORDERED: ONDANSETRON 4 MG/2 ML VIAL ONE (13:01)
--- NOTE | 2021-05-06 12:44 | EDPHYS ---
Physician Documentation [facility] Name: Drake Vallejo Age: 56 yrs Sex: Male : 1965 Arrival Date: 05/05/2021 Time: 09:31 Bed 11 Private MD: HOME Physician Ken Fregoso HPI: 05/05 16:23 This 56 yrs old Male presents to ER via Ambulatory with complaints of COVID+. kb 16:23 The patient or guardian reports cough, difficulty breathing, flu symptoms, myalgias. kb Onset: The symptoms/episode began/occurred 7 day(s) ago. Severity of symptoms: At their worst the symptoms were moderate, in the emergency department the symptoms are unchanged. Modifying factors: The symptoms are alleviated by nothing, the symptoms are aggravated by nothing. Associated signs and symptoms: Pertinent positives: rhinorrhea. The patient has not experienced similar symptoms in the past. The patient has not recently seen a physician. Pt reports cough, congestion, shortness of breath, fatigue, malaise for a week. States his covid test came back positive yesterday. [place] told him to come get evaluated to monoclonal antibodies. Historical: - Allergies: 09:45 hydrocet; ll1 - PMHx: 09:45 CAD; Depression; Diabetes - NIDDM; Hypertension; Myocardial infarction; Bipolar ll1 disorder; - PSHx: 09:45 heart stents; Coronary artery bypass graft; r knee SX; ll1 - Immunization history:: Client reports having NOT received the Covid vaccine. Flu vaccine status is unknown. - Social history:: Smoking status: Patient denies any tobacco usage or history of. ROS: 16:26 Abdomen/GI: Negative for abdominal pain, nausea, vomiting, diarrhea, and constipation. kb 16:26 Constitutional: Positive for fatigue, malaise. 16:26 ENT: Positive for rhinorrhea, sinus congestion. 16:26 Respiratory: Positive for cough, dyspnea on exertion, shortness of breath, Negative for hemoptysis, orthopnea, pleurisy, sputum production, wheezing. 16:26 All other systems are negative. Exam: 16:26 Constitutional: This is a well developed, well nourished patient who is awake, alert, kb and in no acute distress. Head/Face: Normocephalic, atraumatic. ENT: Moist Mucous membranes Respiratory: Respirations even and unlabored. No increased work of breathing, no retractions or nasal flaring. Skin: Warm, dry with normal turgor. Normal color. MS/ Extremity: Pulses equal, no cyanosis. Neurovascular intact. Full, normal range of motion. Neuro: Awake and alert, GCS 15, oriented to person, place, time, and situation. Moves all extremities. Normal gait. Psych: Awake, alert, with orientation to person, place and time. Behavior, mood, and affect are within normal limits. Vital Signs: 09:50 BP 126 / 81; Pulse 87; Resp 20; Temp 98.1; Pulse Ox 96% ; Weight 111.13 kg; Height 6 ll1 ft. 0 in. (182.88 cm); Pain 0/10; 10:06 BP 115 / 69; Pulse 73; Resp 18; Pulse Ox 96% on R/A; vg1 10:20 BP 119 / 74; Pulse 70; Resp 16; Pulse Ox 96% on R/A; vg1 11:23 BP 120 / 72; Pulse 75; Resp 16; Pulse Ox 98% on R/A; vg1 12:27 BP 120 / 80; Pulse 69; Resp 16; Temp 99.3(O); Pulse Ox 98% on R/A; vg1 09:50 Body Mass Index 33.23 (111.13 kg, 182.88 cm) ll1 MDM: 09:40 Patient medically screened. kb 16:22 Data reviewed: vital signs, nurses notes. Data interpreted: Pulse oximetry: on room air kb is 98 %. Interpretation: normal. Counseling: I had a detailed discussion with the patient and/or guardian regarding: the historical points, exam findings, and any diagnostic results supporting the discharge/admit diagnosis, radiology results, the need for outpatient follow up, a family practitioner, to return to the emergency department if symptoms worsen or persist or if there are any questions or concerns that arise at home. 05/05 09:51 Order name: Chest Single View XRAY; Complete Time: 10:34 kb Administered Medications: 10:21 Drug: REGEN-COV Dose Pack 120 mg/mL-120 mg/mL (EUA) 1 packets Route: IV; Rate: vg1 calculated rate; Site: right forearm; 11:25 Follow up: IV Status: Completed infusion; IV Intake: 260ml vg1 12:39 Drug: Zofran (Ondansetron) 4 mg Route: IVP; Site: right forearm; vg1 12:44 Follow up: Response: Medication administered at discharge. vg1 Disposition: 05/06 08:28 Co-signature as Attending Physician, Ken Fregoso MD I agree with the assessment and dominguez plan of care. Disposition Summary: 05/05/21 12:29 Discharge Ordered Location: Home kb Condition: Stable kb Diagnosis - Coronavirus infection, unspecified kb Followup: kb - With: Emergency Department - When: As needed - Reason: Worsening of condition Followup: kb - With: Private Physician - When: 2 - 3 days - Reason: Recheck today's complaints, Continuance of care, Re-evaluation by your physician Discharge Instructions: - Discharge Summary Sheet kb - Viral Respiratory Infection, [id number] kb - COVID-19 kb - COVID-19 Frequently Asked Questions kb - 10 Things You Can Do to Manage Your COVID-19 Symptoms at Home - [facility] kb Forms: - Medication Reconciliation Form kb - Thank You Letter kb - Antibiotic Education kb - Prescription Opioid Use kb Signatures: Dispatcher [employer] EDChrystal Ortega, HOUSING COURT JUDGE-C HOUSING COURT JUDGE-Ken Willoughby MD MD cha Garcia, Victoria, RN RN vg1 Nika Gore RN RN ll1
== END 2021-05-05 12:44 | disposition home or self-care (01) ==
LOC: ER 09:27
DX: U07.1 COVID-19 (principal); I10 Essential (primary) hypertension; E11.9 Type 2 diabetes mellitus without complications; Z88.8 Allergy status to other drugs, medicaments and biological substances; Z95.1 Presence of aortocoronary bypass graft; Z95.818 Presence of other cardiac implants and grafts
CPT/HCPCS: 96365; 71045; 96375; 99284; J7050; J2405

== ENCOUNTER 2021-05-12 06:30 | Emergency (ER) | payer BC ==
--- OUTSIDE RECORDS SUMMARY | 2021-05-12 06:34 | XMS REPORT | Continuity of Care Document ---
:1965 Author Organization [facility] t Address 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 Diastolic Disease Active 2017-[address] [facility]F CHF 09-09 [facility] - 00:00: Medical 00 [place] 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 [...] Medical 00 Center Postoperat Postoperat Disease Active 2018-[address] norma pain norma pain [...] [facility] myocardial myocardial 09-03 [facility] - infarction infarction 00:00: Me dical ) [...] Unstable Disease Active [facility] di angina angina [address] st pectoris pectoris 00:00: Hospit a 00 l S/P CABG x S/P CABG x Disease Active [facility] 1 1 [facility] Allergies, Adverse Reactions, Alerts Allergy Allergy Status Severity Reaction(s) Onset Inactive Treating Comm ents Source Name Type Date Date Clinician Hydrocod Propensi Active Other (See 2017-[address] one-Acet ty to Comments) 09-05 headed Ber[place]ane - aminophe adverse 00:00: Medical n reaction 00 Center s Family History Family Member Diagnosis Comments Start Date Stop Date Source Natural father Cancer [facility] Maternal grandmother Cancer [facility] Maternal grandmother Heart disease C HI [facility] Maternal uncle Stroke [facility] Natural mother Diabetes [facility] Natural mother Heart disease [facility] Natural mother Hypertension [facility] Natural mother Stroke [facility] Paternal uncle Diabetes [facility] Social History Social Habit Start Date Stop Date Quantity Comments Source History SDOH [facility] - Alcohol Binge Medical Tresa ter History SDOH [facility] - Alcohol Frequency Medical Center History SDOH [facility] - Alcohol Std Drinks Medica l Center History [facility] 2018-07-04 2018-07-04 6 beers a month [facility] - Alcohol Comment 00:00:00 00:00:00 Medical C enter Tobacco use and 2017-10-30 2017-10-[address] exposure 00:00:00 00:00:00 Hospital Alcohol intake 2017-10-30 2017-10-30 Current drinker [facility]o dist 00:00:00 00:00:00 of alcohol Hospital (finding) Sex Ass[birth year] At [birth year] Zoroastrianism 00:00:00 00:00:00 Hospital Smoking Status Start Date Stop Date Source Never sm[facility] Former smoker 2017-10-30 00:00:00 2017-10-30 00:00:00 [facility] Medications Ordered Filled Start Stop Current Ordering [...] mouth Medical capsule 00 daily. Center nitroglycer 2017-[address] 0[address] in 1-13 mg under [facility] - (NITROSTAT) 17:24: the Medica l 0.4 MG SL 00 tongue. Center tablet carvedilol 2017-08 Yes 25mg Take [address] (COREG) 25 -13 by mouth 2 Olivia es - MG tablet 17:24: (two) Medical 00 times Center daily with breakfast and dinner. atorvastati 2017-08 Yes 80mg QD Take [address] [facility] (LIPITOR) -13 by mouth Luke s - 80 MG 17:24: daily. Medical tablet 00 Center aspirin 81 2017-08 Yes 81mg QD Take [address] MG EC 13 by mouth [facility] - tablet 17:24: daily. [...] [address] (AMARYL) 2 -13 by mouth 2 Olivia es - MG tablet 17:24: (two) Medical 00 times Center daily. ranitidine 2017-08 Yes 150mg QD Take [address] (ZANTAC) 1-13 mg by [facility] - 150 MG 17:24: mouth Medical capsule 00 daily. Center nitroglycer 2017-[address] 0[address] in 1-13 mg under [facility] - (NITROSTAT) 17:24: the Medica l 0.4 MG SL 00 tongue. Center tablet citalopram Yes 20mg QD Take 20 mg M ethodi (CeleXA) 20 3-[address] MG tablet 20:54: daily. Hospit a 18 l clopidogrel Yes 75mg QD Take 75 mg Methodi (PLAVIX) 75 3-[address] mg tablet 20:54: daily. Hospit a 18 l citalopram 2018-0 Yes 20mg QD Take 20 mg M [...] 20:54: mouth Hospita tablet 18 daily. l carvedilol 2018-0 Yes 25mg Q.5D Take 25 mg M ethodi (COREG) 25 3-[address] MG tablet 20:54: (two) Hospita 18 times a l day with meals. atorvastati 2018-0 Yes 40mg Q.5D Take 40 mg Methodi n (LIPITOR) 3-[address] 40 MG 20:54: (two) Hospita tablet 18 times a l day. aspirin 2018- Yes 81mg QD Take 81 mg Meth aeljandra (ECOTRIN) 3-[address] 81 MG 20:54: daily. Hospita enteric 18 l coated tablet nitroglycer Yes .4mg Place 0.4 M ethodi in 3-[address] (NITROSTAT) 20:54: the tongue Hospita 0.4 MG SL 18 every 5 l tablet (five) minutes as needed for chest pain. ascorbic 2017- Yes 500mg QD Take 500 Meth alejandra acid, 3-[address] vitamin C, 20:54: mouth Hospit a (VITAMIN C) 18 daily. l 500 MG tablet multivitami Yes 1{tbl} QD Take 1 Me thodi n 3-[address] (THERAGRAN) 20:54: mouth Hospi ta tablet 18 daily. l ranitidine Yes 150mg Take 150 Me thodi (ZANTAC) 3-[address] 150 MG 20:54: mouth Hospita tablet 18 daily. l Procedures This patient has no known procedures. Plan of Care Planned Activity Planned Date Details Comments Source Future Scheduled 2021-07-[address] [facility] - Test 00:00:00 (procedure) [code = [facility] 81301458] Future Scheduled 2021-07-[address] [facility] - Test 00:00:00 (procedure) [code = [facility] [id number]] Future Scheduled 2021-04-[address] [facility] - Test 00:00:00 (Season Ended) [code = [facility] Center INFLUENZA VACCINE (Season Ended)] Future Scheduled 2021-04-[address] [facility] - Test 00:00:00 (Season Ended) [code = [facility] Center INFLUENZA VACCINE (Season Ended)] Future Scheduled 2020-08-[address] [facility] - Test 00:00:00 (12+) [code = [facility] Center DEPRESSION SCREENING (12+)] Future Scheduled 2020-08-[address] [facility] - Test 00:00:00 (12+) [code = [facility] Center DEPRESSION SCREENING (12+)] Future Scheduled 2019-01-[address] [facility] - Test 00:00:00 [facility] Medical Center (procedure) [code = 17663056] Future Scheduled 2019-01-[address] [facility] - Test 00:00:00 measurement Medical Center (procedure) [code = 84399564] Future Scheduled 2015 SHINGLES VACCINES ([address] [facility] - Test 00:00:00 of 2) [code = SHINGLES Medic al Center VACCINES (1 of 2)] Future Scheduled 2015 SHINGLES VACCINES ([address] [facility] - Test 00:00:00 of 2) [code = SHINGLES Medic al Center VACCINES (1 of 2)] Future Scheduled 1984-02-14 DTAP/TDAP/TD VACCINES [facility] Test 00:00:00 (1 - Tdap) [code = Medical C enter DTAP/TDAP/TD VACCINES (1 - Tdap)] Future Scheduled 1984-02-14 DTAP/TDAP/TD VACCINES [facility] Test 00:00:00 (1 - Tdap) [code = Medical C enter DTAP/TDAP/TD VACCINES (1 - Tdap)] Future Scheduled 1983 HEPATITIS C SCREENING [facility] Test 00:00:00 [code = HEPATITIS C Medical Center SCREENING] Future Scheduled 1983 HEPATITIS C SCRE[facility]ING [facility] Test 00:00:00 [code = HEPATITIS C Medical Center SCREENING] Future Scheduled 1977 COVID-19 VACCINE (1) [facility] Test 00:00:00 [code = COVID-[address] VACCINE (1)] Future Scheduled 1977 COVID-19 VACCINE (1) [facility] - Test 00:00:00 [code = COVID-[address] VACCINE (1)] Future Scheduled [address] DIABETIC EYE EXAM [facility] - Test 00:00:00 [code = DIABETIC EYE Medical Center EXAM] Future Scheduled [address] [facility] - Test 00:00:00 examination Medical Center (regime/therapy) [code = 514360904] Future Scheduled 1975 Urine screening for [facility] - Test 00:00:00 protein (procedure) Medical Center [code = 768645178] Future Scheduled [address] DIABETIC EYE EXAM [facility] - Test 00:00:00 [code = DIABETIC EYE Medical Center EXAM] Future Scheduled [address] [facility] - Test 00:00:00 examination Medical Center (regime/therapy) [code = 717925586] Future Scheduled 1975 Urine screening for [facility] - Test 00:00:00 protein (procedure) Medical Center [code = 824718764] Future Scheduled [address] [facility] - Test 00:00:00 0-64 YRS (1 of 1 - Medical C enter PPSV23) [code = PNEUMOCOCCAL VACCINE 0-64 YRS (1 of 1 - PPSV23)] Future Scheduled [address] [facility] - Test 00:00:00 0-64 YRS (1 of 1 - Medical C enter PPSV23) [code = PNEUMOCOCCAL VACCINE 0-64 YRS (1 of 1 - PPSV23)] Future Scheduled [address] [facility] - Test 00:00:00 malignant neoplasm of [facility] colon (procedure) [code = 848521410] Future Scheduled [address] [facility] - Test 00:00:00 malignant neoplasm of [facility] colon (procedure) [code = 123959209] Future Scheduled COVID-19 VACCINE (1) [facility] Hospital Test [code = COVID-19 VACCINE (1)] Future Scheduled COLONOSCOPY SCREENING [facility] Test [code = COLONOSCOPY SCREENING] Future Scheduled SHINGLES VACCINES (#1) M [facility] Hospital Test [code = SHINGLES VACCINES (#1)] Future Scheduled INFLUENZA VACCINE Method ist Hospital Test [code = INFLUENZA VACCINE] Future Scheduled COVID-19 VACCINE (1) [facility] Hospital Test [code = COVID-19 VACCINE (1)] Future Scheduled COLONOSCOPY SCREENING [facility] Test [code = COLONOSCOPY SCREENING] Future Scheduled SHINGLES VACCINES (#1) M [facility] Hospital Test [code = SHINGLES VACCINES (#1)] [...] /LPF SOURCE(BEAKER) (test code = 2795) POCT-GLUCOSE [id number] 12:36:00 Test Item Value Reference Range Interpretation Comments POC-GLUCOSE METER 151 mg/dL 70-[address] [facility] 6720 (BEAKER) (test code = [facility] 1538) [address] POCT-GLUCOSE [id number] 08:14:00 Test Item Value Reference Range Interpretation Comments POC-GLUCOSE METER 159 mg/dL 70-[address] [facility] 6720 (BEAKER) (test code = [facility] 1538) [address] RAD, CHEST, 1 VIEW, NON [id number] 08:10:00Reason for exam:->eval pulmonary congestionShould this be [...] Stable surgical changes.Additional findings: None. Signed: JR Cally, Shayna Hernandez Verified Date/Time: 07/11/2018 08:10:57 Reading Location: [address] Neuro Reading Room [id number] 05:02:00 Test Item Value Reference Range Interpretation Comments MAGNESIUM (BEAKER) (test code = 2.1 mg/dL 1.6-2.6 627) BASIC METABOLIC [id number] 05:02:00 Test Item Value Reference Range Interpretation [...] % 40.1-51.0 L 411) MEAN CORPUSCULAR VOLUME ([facility]) 99.4 fL 79.0-92.2 H (test code = 753) MEAN CORPUSCULAR HEMOGLOBIN 32.2 pg 25.7-32.2 ([facility]) (test code = 751) MEAN CORPUSCULAR HEMOGLOBIN CONC 32.4 GM/DL 32.3-36.5 ([facility]) (test code = 752) RED CELL DISTRIBUTION WIDTH 12.2 % 11.6-14.4 ([facility]) (test code = 412) PLATELET COUNT ([facility]) (test 179 K/CU MM 150-450 code = 756) MEAN PLATELET VOLUME ([facility]) 10.0 fL 9.4-12.4 (test code = 754) NUCLEATED RED BLOOD CELLS 0 /100 WBC 0-0 ([facility]) (test code = 413) POCT-GLUCOSE [id number] 21:35:00 Test Item Value Reference Range Interpretation Comments POC-GLUCOSE METER 172 mg/dL 70-110 H TESTED AT [place] [address] ([facility]) (test code = SURAJ Colon [facility] 1538) [address] POCT-GLUCOSE [id number] 17:50:00 Test Item Value Reference Range Interpretation Comments POC-GLUCOSE METER 142 mg/dL 70-110 H TESTED AT [place] [address] ([facility]) (test code = SURAJ Colon [facility] 1538) [address] B-TYPE NATRIURETIC FACTOR (BNP)2018-07-10 14:23:00 Test Item Value Reference Range Interpretation Comments B-TYPE NATRIURETIC PEPTIDE ([facility]) 263 pg/mL 0-100 H (test code = 700) POCT-GLUCOSE [id number] 12:30:00 Test Item Value Reference Range Interpretation Comments POC-GLUCOSE METER 162 mg/dL 70-110 H TESTED AT [place] [address] ([facility]) (test [facility] = [facility] 1538) [address] POCT-GLUCOSE [id number] 08:28:00 Test Item Value Reference Range Interpretation Comments POC-GLUCOSE METER 248 mg/dL 70-110 H TESTED AT [place] [address] ([facility]) (test code = [facility] Colon [facility] 1538) [address] RAD, CHEST, 1 VIEW, NON [id number] 07:32:00Reason for exam:->eval pulmonary congestionShould this be [...] MDReport Verified Date/Time: 07/10/2018 07:32:04 Reading Location: [address] Neuro Reading Room [id number] 06:04:00 Test Item Value Reference Range Interpretation Comments MAGNESIUM (BEAKER) (test code = 2.3 mg/dL 1.6-2.6 627) BASIC METABOLIC [id number] 06:04:00 Test Item Value Reference Range Interpretation [...] 0-0 (BEAKER) (test code = 413) POCT-GLUCOSE [id number] 21:23:00 Test Item Value Reference Range Interpretation Comments POC-GLUCOSE METER 166 mg/dL 70-[address] [facility] 6720 (BEAKER) (test code = [facility] [place] 1538) [address] [id number] 12:50:00 Test Item Value Reference Range Interpretation Comments POTASSIUM (BEAKER) (test code = 4.0 meq/L 3.5-5.1 379) Check Serum Magnesium level 2 hours after IV magnesium replacement.Check Serum Phosphorus level 4 hours after IV phosphorus replacement or 8 hours after PO replacement completed.Every 8 hours PRN for Creatinine greater than or equal to 2 mg/dL.[id number] 12:50:00 Test Item Value Reference Range Interpretation Comments MAGNESIUM (BEAKER) (test code = 2.3 mg/dL 1.6-2.6 627) Check Serum Magnesium level 2 hours after IV magnesium replacement.Check Serum Phosphorus level 4 hours after IV phosphorus replacement or 8 hours after PO replacement completed.Every 8 hours PRN for Creatinine greater than or equal to 2 mg/dL.[id number] 12:50:00 Test Item Value Reference Range Interpretation Comments PHOSPHORUS (TAMIR) (test code = 1.6 mg/dL 2.3-4.7 L 604) Check Serum Magnesium level 2 hours after IV magnesium replacement.Check Serum Phosphorus level 4 hours after IV phosphorus replacement or 8 hours after PO replacement completed.Every 8 hours PRN for Creatinine greater than or equal to 2 mg/dL.POCT-GLUCOSE [id number] 12:19:00 Test Item Value Reference Range Interpretation Comments POC-GLUCOSE METER 255 mg/dL 70-110 H TESTED AT [place] [address] ([facility]) (test code = SURAJ Colon [facility] 1538) [address] RAD, CHEST, 1 VIEW, NON [id number] 09:46:00while patient is intubated or has chest [...] Zafar MDReportVerified Date/Time: 07/09/2018 09:46:04 Reading Location: [facility] C0[facility] Transitional Reading Room POCT-GLUCOSE [id number] 08:01:00 Test Item Value Reference Range Interpretation Comments POC-GLUCOSE METER 173 mg/dL 70-[address] [facility] 6720 ([facility]) (test code = SURAJ Colon [facility] 1538) [address] [id number] 04:58:00 Test Item Value Reference Range Interpretation Comments PHOSPHORUS (TAMIR) (test code = 2.3 mg/dL 2.3-4.7 604) Check Serum Phosphorus level 4 hours after IV phosphorus replacement or 8 hours after PO replacementcompleted.[id number] 04:58:00 Test Item Value Reference Range Interpretation Comments MAGNESIUM (BEAKER) (test code = 2.3 mg/dL 1.6-2.6 627) Check Serum Phosphorus level 4 hours after IV phosphorus replacement or 8 hours after PO replacementcompleted.BASIC METABOLIC [id number] 04:58:00 Test Item Value Reference Range Interpretation [...] WBC 0-0 (BEAKER) (test code = 413) [id number] 00:40:00 Test Item Value Reference Range Interpretation Comments POTASSIUM (BEAKER) (test code = 3.5 meq/L 3.5-5.1 379) Every 8 hours PRN for Creatinine greater than or equal to 2 mg/dL.POCT-GLUCOSE [id number] 20:50:00 Test Item Value Reference Range Interpretation Comments POC-GLUCOSE METER 171 mg/dL 70-[address] [facility] 6720 (BEAKER) (test code = SURAJ [place] 1538) [address] [id number] 18:19:00 Test Item Value Reference Range Interpretation Comments POTASSIUM (BEAKER) (test code = 3.7 meq/L 3.5-5.1 379) Check Serum Magnesium level 2 hours after IV magnesium replacement.Check Serum Phosphorus level 4 hours after IV phosphorus replacement or 8 hours after PO replacement completed.8 hours after PO replacement [id number] 18:19:00 Test Item Value Reference Range Interpretation Comments MAGNESIUM (BEAKER) (test code = 2.1 mg/dL 1.6-2.6 627) Check Serum Magnesium level 2 hours after IV magnesium replacement.Check Serum Phosphorus level 4 hours after IV phosphorus replacement or 8 hours after PO replacement completed.8 hours after PO replacement [id number] 18:19:00 Test Item Value Reference Range Interpretation [...] 698) PH, BLOOD (BEAKER) (test code = 7.51 1810) Check serum Ionized Calcium level after 4 hours after IV Calcium replacement. POCT-GLUCOSE [id number] 17:17:00 Test Item Value Reference Range Interpretation Comments POC-GLUCOSE METER 195 mg/dL 70-[address] [facility] 6720 (BEAKER) (test code = SURAJ Colon [facility] 1538) [address] POCT-GLUCOSE [id number] 12:17:00 Test Item Value Reference Range Interpretation Comments POC-GLUCOSE METER 231 mg/dL 70-[address] [facility] 6720 (BEAKER) (test code = SURAJ Colon [facility] 1538) [address] RAD, CHEST, 1 VIEW, NON [id number] 09:19:00Reason for exam:- >hypoxiaShould this be performed [...] MDReport Verified Date/Time: 07/08/2018 09:19:57 Reading Location: [address] Transitional Reading Room [id number] 08:56:00 Test Item Value Reference Range Interpretation Comments PHOSPHORUS (BEAKER) (test code = 1.7 mg/dL 2.3-4.7 L 604) [id number] 08:56:00 Test Item Value Reference Range Interpretation Comments MAGNESIUM (BEAKER) (test code = 2.1 mg/dL 1.6-2.6 627) BASIC METABOLIC [id number] 08:56:00 Test Item Value Reference Range Interpretation [...] APPLICABLE FOR DIALYSIS PATIEN TS. BLOOD GAS, [id number] 08:49:00 Test Item Value Reference Range Interpretation [...] 60.0 % CBC W/PLT COUNT & AUTO [id number] 06:39:00 Test Item Value Reference Range Interpretation [...] PERCENT (BEAKER) (test code = 2801) POCT-GLUCOSE [id number] 05:59:00 Test Item Value Reference Range Interpretation Comments POC-GLUCOSE METER 175 mg/dL 70-[address] [facility] 6720 (BEAKER) (test code = SURAJ Colon [facility] 1538) [address] BLOOD GAS, [id number] 21:35:00 Test Item Value Reference Range Interpretation [...] (test code = 1819) 60.0 % POCT-GLUCOSE [id number] 21:31:00 Test Item Value Reference Range Interpretation Comments POC-GLUCOSE METER 194 mg/dL 70-110 H TESTED AT [place] [address] ([facility]) (test code = SURAJ Colon [facility] 1538) [address] OXYGEN SATURATION, [id number] 19:33:00 Test Item Value Reference Range Interpretation Comments O2 SATURATION (MEASURED) (BEAKER) 68.6 % (test code = 1455) For occult hypoperfusionLACTIC ACID, VENOUS, WHOLE [id number] 16:49:00 Test Item Value Reference Range Interpretation Comments LACTATE BLOOD VENOUS (2) (BEAKER) 1.0 mmol/L 0.5-2.2 (test code = 2872) BLOOD GAS, [id number] 16:43:00 Test Item Value Reference Range Interpretation [...] 60.0 % CBC W/PLT COUNT & AUTO [id number] 16:37:00 Test Item Value Reference Range Interpretation [...] 3438) Received comment: User comments: Slide comments:POCT-GLUCOSE [id number] 16:30:00 Test Item Value Reference Range Interpretation Comments POC-GLUCOSE METER 239 mg/dL 70-[address] [facility] 6720 (BEAKER) (test code = SURAJ [place] 1538) [address] BLOOD GAS, [id number] 13:33:00 Test Item Value Reference Range Interpretation [...] (BEAKER) (test code = 1819) 32.0 % [id number] 13:09:00 Test Item Value Reference Range Interpretation Comments MAGNESIUM (BEAKER) 2.2 mg/dL 1.6-2.6 Specimen slightly (test code = 627) hemolyzed BASIC METABOLIC [id number] 13:09:00 Test Item Value Reference Range Interpretation [...] NOT APPLICABLE FOR DIALYSIS PATIEN TS. CALCIUM, [id number] 12:44:00 Test Item Value Reference Range Interpretation Comments CALCIUM IONIZED (BEAKER) (test 1.14 mmol/L 1.12-1.27 code = 698) PH, BLOOD (BEAKER) (test code = 7.34 1810) [id number] 11:12:00 Test Item Value Reference Range Interpretation Comments MAGNESIUM (BEAKER) (test code = 2.1 mg/dL 1.6-2.6 627) Check Serum Magnesium level 2 hours after IV magnesium replacement.GLUCOSE-STAT [id number] 11:00:00 Test Item Value Reference Range Interpretation Comments GLUCOSE RANDOM (BEAKER) (test code 194 mg/dL 70-110 H = 652) HGB/HCT (H&H) - STAT [id number] 11:00:00 Test Item Value Reference Range Interpretation Comments HEMOGLOBIN (BEAKER) (test code = 12.5 g/dL 13.0-16.8 L 410) HEMATOCRIT (BEAKER) (test code = 37.0 % 40.0-50.0 L 411) SODIUM NA-STAT [id number] 10:58:00 Test Item Value Reference Range Interpretation Comments SODIUM (BEAKER) (test code = 381) 138 meq/L 135-148 POTASSIUM-STAT [id number] 10:58:00 Test Item Value Reference Range Interpretation Comments POTASSIUM (BEAKER) (test code = 4.2 meq/L 3.6-5.5 379) CBC W/PLT COUNT & AUTO [id number] 09:53:00 Test Item Value Reference Range Interpretation [...] 0-1 PERCENT (BEAKER) (test code = 2801) [id number] 05:10:00 Test Item Value Reference Range Interpretation Comments MAGNESIUM (BEAKER) 2.3 mg/dL 1.6-2.6 Specimen slightly (test code = 627) hemolyzed [id number] 05:10:00 Test Item Value Reference Range Interpretation Comments PHOSPHORUS (BEAKER) 3.9 mg/dL 2.3-4.7 Specimen slightly (test code = 604) hemolyzed BASIC METABOLIC [id number] 05:10:00 Test Item Value Reference Range Interpretation [...] PATIEN TS. RAD, CHEST, 1 VIEW, NON [id number] 04:15:00while patient is intubated or has chest [...] MDReport Verified Date/Time: 07/07/2018 04:15:31 Reading Location: [address] Reading Room POCT-GLUCOSE [id number] 22:22:00 Test Item Value Reference Range Interpretation Comments POC-GLUCOSE METER 208 mg/dL 70-[address] [facility] 6720 ([facility]) (test code = [place] [place] 1538) [address] BLOOD GAS, [id number] 20:12:00 Test Item Value Reference Range Interpretation [...] 40.0 % CBC W/PLT COUNT & AUTO [id number] 19:32:00 Test Item Value Reference Range Interpretation [...] (BEAKER) (test code Normal = 486) POCT-GLUCOSE [id number] 18:56:00 Test Item Value Reference Range Interpretation Comments POC-GLUCOSE METER 206 mg/dL 70-[address] [facility] 6720 (BEAKER) (test code = SURAJ Colon [place] 1538) [address] BASIC METABOLIC [id number] 17:20:00 Test Item Value Reference Range Interpretation [...] DIALYSIS PATIEN TS. LACTIC ACID, ARTERIAL, WHOLE [id number] 16:50:00 Test Item Value Reference Range Interpretation Comments LACTATE BLOOD ARTERIAL (2) 1.2 mmol/L 0.5-2.2 (BEAKER) (test code = 2874) [id number] 16:45:00 Test Item Value Reference Range Interpretation Comments MAGNESIUM (BEAKER) 2.7 mg/dL 1.6-2.6 H Specimen slightly (test code = 627) hemolyzed [id number] 16:45:00 Test Item Value Reference Range Interpretation Comments PHOSPHORUS (BEAKER) 3.6 mg/dL 2.3-4.7 Specimen slightly (test code = 604) hemolyzed [id number] 16:45:00 Test Item Value Reference Range Interpretation Comments POTASSIUM (BEAKER) 5.1 meq/L 3.5-5.1 Specimen slightly (test code = 379) hemolyzed [id number] 16:45:00 Test Item Value Reference Range Interpretation Comments SODIUM (BEAKER) (test code = 381) 137 meq/L 136-145 [id number] 16:45:00 Test Item Value Reference Range Interpretation Comments GLUCOSE RANDOM (BEAKER) (test code 193 mg/dL 70-105 H = 652) [id number] 16:39:00 Test Item Value Reference Range Interpretation [...] is 2.5-3.5 for patients with mechanical heart valves.[id number] 16:39:00 Test Item Value Reference Range Interpretation Comments FIBRINOGEN LEVEL (BEAKER) (test 282 mg/dl 225-434 code = 658) PROTHROMBIN [id number] 16:38:00 Test Item Value Reference Range Interpretation Comments PROTIME (BEAKER) (test code = 15.4 seconds 11.7-14.7 H 759) INR (BEAKER) (test code = 370) 1.2 <=5.9 RECOMMENDED COUMADIN/WARFARIN INR THERAPY RANGESSTANDARD DOSE: 2.0 - 3.0 Includes: PROPHYLAXIS forvenous thrombosis, systemic embolization; TREATMENT for venous thrombosis and/or pulmonary embolus.HIGH RISK: Target INR is 2.5-3.5 for patients with mechanical heart valves.RAD, CHEST, 1 VIEW, NON [id number] 16:16:00Reason for exam:->s/p CABGShould this be performed [...] wires are intact and well aligned. Signed: Mri Schreibereport Verified Date/Time: 07/06/2018 16:16:23 Reading Location: [facility] Radiology Reading Room EN SATURATION, [id number] 16:00:00 Test Item Value Reference Range Interpretation Comments O2 SATURATION (MEASURED) (BEAKER) 64.6 % (test code = 1455) BLOOD GAS, [id number] 15:59:00 Test Item Value Reference Range Interpretation [...] (BEAKER) (test code = 1819) 50.0 % [id number] 15:14:00 Test Item Value Reference Range Interpretation Comments ACTIVATED CLOTTING TIME 103 sec TEST ED AT [place] [address] (BEAKER) (test code = [place] [address]) [id number] 15:14:00 Test Item Value Reference Range Interpretation Comments ACTIVATED CLOTTING TIME 423 sec TEST ED AT [place] [address] (BEAKER) (test code = [place] [address]) [id number] 15:14:00 Test Item Value Reference Range Interpretation Comments ACTIVATED CLOTTING TIME 384 sec TEST ED AT [place] [address] (BEAKER) (test code = [place] [address]) [address] THROMBOELASTOGRAPH (TEG)2018-07-06 15:08:00 Test Item Value Reference [...] 0.0 % 0.0-5.0 code = 1414) PLATELET [id number] 14:31:00 Test Item Value Reference Range Interpretation Comments PLATELET COUNT (BEAKER) (test 125 K/CU MM 150-450 L code = 756) [id number] 14:18:00 Test Item Value Reference Range Interpretation Comments FIBRINOGEN LEVEL (BEAKER) (test 406 mg/dl 225-434 code = 658) [id number] 14:18:00 Test Item Value Reference Range Interpretation Comments PARTIAL THROMBOPLASTIN TIME 24.4 seconds 22.5-36.0 (BEAKER) (test code = 760) PROTHROMBIN [id number] 14:17:00 Test Item Value Reference Range Interpretation Comments PROTIME (BEAKER) (test code = 14.1 seconds 11.7-14.7 759) INR (BEAKER) (test code = 370) 1.1 <=5.9 RECOMMENDED COUMADIN/WARFARIN INR THERAPY RANGESSTANDARD DOSE: 2.0 - 3.0 Includes: PROPHYLAXIS forvenous thrombosis, systemic embolization; TREATMENT for venous thrombosis and/or pulmonary embolus.HIGH RISK: Target INR is 2.5-3.5 for patients with mechanical heart valves.GLUCOSE-STAT [id number] 14:03:00 Test Item Value Reference Range Interpretation Comments GLUCOSE RANDOM (BEAKER) (test code 165 mg/dL 70-110 H = 652) SODIUM NA-STAT [id number] 14:03:00 Test Item Value Reference Range Interpretation Comments SODIUM (BEAKER) (test code = 381) 133 meq/L 135-148 L HGB/HCT (H&H) - STAT [id number] 14:03:00 Test Item Value Reference Range Interpretation Comments HEMOGLOBIN (BEAKER) (test code = 12.5 g/dL 13.0-16.8 L 410) HEMATOCRIT (BEAKER) (test code = 37.0 % 40.0-50.0 L 411) POTASSIUM-STAT [id number] 14:02:00 Test Item Value Reference Range Interpretation Comments POTASSIUM (BEAKER) (test code = 4.4 meq/L 3.6-5.5 379) BLOOD GAS, [id number] 14:02:00 Test Item Value Reference Range Interpretation [...] code = 1819) 100.0 % BLOOD GAS, [id number] 13:22:00 Test Item Value Reference Range Interpretation Comments PH VENOUS (BEAKER) 7.34 7.32-7.42 This is a corrected (test code = 701) result. Pr evious result was 7.36 on 07/06/2018 at 13 13 [employer] PCO2 VENOUS (BEAKER) 46 mmHg 41-51 This is a corrected (test code = 755) result. Pr evious result was 44 m mHg on 07/06/2018 at 1313 [employer] PO2 VENOUS (BEAKER) 46 mmHg 25-40 H This is a corrected (test code = 702) result. Pr evious result was 282 mmHg on 07/06/2018 at 1313 [employer] O2 SATURATION VENOUS 93.4 % 40.0-70.0 H This is a corrected (BEAKER) (test code = result . Previous 703) result was 99.6 % on 07/06/2018 at 13 13 [employer] HCO3 VENOUS (BEAKER) 27 mmol/L 21-29 (test code = 705) BASE EXCESS VENOUS -1.8 mmol/L -2.0-3.0 (BEAKER) (test code = 704) PATIENT TEMPERATURE 28.2 C (BEAKER) (test code = 1818) FIO2 (BEAKER) (test 65.0 % code = 1819) BLOOD GAS, [id number] 13:15:00 Test Item Value Reference Range Interpretation [...] code = 1819) 65.0 % SODIUM NA-STAT [id number] 13:15:00 Test Item Value Reference Range Interpretation Comments SODIUM (BEAKER) (test code = 381) 132 meq/L 135-148 L GLUCOSE-STAT [id number] 13:15:00 Test Item Value Reference Range Interpretation Comments GLUCOSE RANDOM (BEAKER) (test code 183 mg/dL 70-110 H = 652) HGB/HCT (H&H) - STAT [id number] 13:15:00 Test Item Value Reference Range Interpretation Comments HEMOGLOBIN (BEAKER) (test code = 11.4 g/dL 13.0-16.8 L 410) HEMATOCRIT (BEAKER) (test code = 34.0 % 40.0-50.0 L 411) POTASSIUM-STAT [id number] 13:14:00 Test Item Value Reference Range Interpretation Comments POTASSIUM (BEAKER) (test code = 3.9 meq/L 3.6-5.5 379) SODIUM NA-STAT [id number] 13:07:00 Test Item Value Reference Range Interpretation Comments SODIUM (BEAKER) (test code = 381) 138 meq/L 135-148 POTASSIUM-STAT [id number] 13:07:00 Test Item Value Reference Range Interpretation Comments POTASSIUM (BEAKER) (test code = 4.1 meq/L 3.6-5.5 379) HGB/HCT (H&H) - STAT [id number] 13:07:00 Test Item Value Reference Range Interpretation Comments HEMOGLOBIN (BEAKER) (test code = 14.7 g/dL 13.0-16.8 410) HEMATOCRIT (BEAKER) (test code = 43.0 % 40.0-50.0 411) BLOOD GAS, [id number] 13:07:00 Test Item Value Reference Range Interpretation [...] mmol/L 21-29 = 388) BASE EXCESS ARTERIAL ([facility]) -1.6 mmol/L -2.0-3.0 (test code = 387) PATIENT TEMPERATURE ([facility]) 36.4 C (test code = 1818) FIO2 ([facility]) (test code = 1819) 100.0 % GLUCOSE-STAT [id number] 13:07:00 Test Item Value Reference Range Interpretation Comments GLUCOSE RANDOM ([facility]) (test code 157 mg/dL 70-110 H = 652) CALCIUM, [id number] 13:06:00 Test Item Value Reference Range Interpretation Comments CALCIUM IONIZED ([facility]) (test 1.13 mmol/L 1.12-1.27 code = 698) PH, BLOOD ([facility]) (test code = 7.23 1810) [id number] 12:49:00 Test Item Value Reference Range Interpretation Comments ACTIVATED CLOTTING TIME 472 sec TEST ED AT [place] [address] ([facility]) (test code = [place] [address]) [id number] POCT-GLUCOSE [id number] 08:01:00 Test Item Value Reference Range Interpretation Comments POC-GLUCOSE METER 201 mg/dL 70-110 H TESTED AT [place] [address] ([facility]) (test code = [place] [address]) [id number] 06:43:00 Test Item Value Reference Range Interpretation Comments PARTIAL THROMBOPLASTIN TIME 109.3 seconds 22.5-36.0 H ([facility]) (test code = 760) CBC W/PLT COUNT & AUTO [id number] 06:24:00 Test Item Value Reference Range Interpretation Comments WHITE BLOOD CELL COUNT ([facility]) 6.2 K/ L 3.5-10.5 (test code = 775) RED BLOOD CELL COUNT ([facility]) 4.68 M/ L 4.63-6.08 (test code = 761) HEMOGLOBIN (BEAKER) (test code = 15.1 GM/DL 13.7-17.5 410) HEMATOCRIT ([facility]) (test code = 45.4 % 40.1-51.0 411) MEAN CORPUSCULAR VOLUME ([facility]) 97.0 fL 79.0-92.2 H (test code = [...] 0-1 PERCENT (BEAKER) (test code = 2801) [id number] 01:14:00 Test Item Value Reference Range Interpretation Comments PARTIAL THROMBOPLASTIN TIME 90.5 seconds 22.5-36.0 H (BEAKER) (test code = 760) 6 hours after starting heparin infusion and as indicated per sliding scale PROTHROMBIN [id number] 01:12:00 Test Item Value Reference Range Interpretation [...] heparin infusion and as indicated per sliding [id number] 01:02:00 Test Item Value Reference Range Interpretation Comments MAGNESIUM (BEAKER) 2.9 mg/dL 1.6-2.6 H Specimen slightly (test code = 627) hemolyzed COMPREHENSIVE METABOLIC [id number] 01:02:00 Test Item Value Reference Range Interpretation [...] Specimen markedly lipemicCBC W/PLT COUNT & AUTO [id number] 00:44:00 Test Item Value Reference Range Interpretation [...] EOSINOPHILS ABSOLUTE COUNT 0.23 K/ L 0.04-0.54 ([facility]) (test code = 416) BASOPHILS ABSOLUTE COUNT ([facility]) 0.06 K/ L 0.01-0.08 (test code = 417) IMMATURE GRANULOCYTES-RELATIVE 1 % 0-1 PERCENT ([facility]) (test code = 2801) POCT-GLUCOSE [id number] 21:33:00 Test Item Value Reference Range Interpretation Comments POC-GLUCOSE METER 286 mg/dL 70-110 H TESTED AT [place] [address] ([facility]) (test code = [facility] 1538) [address] [id number] 19:12:00 Test Item Value Reference Range Interpretation Comments PARTIAL THROMBOPLASTIN TIME 64.6 seconds 22.5-36.0 H ([facility]) (test code = 760) POCT-GLUCOSE [id number] 18:10:00 Test Item Value Reference Range Interpretation Comments POC-GLUCOSE METER 165 mg/dL 70-110 H TESTED AT [place] [address] ([facility]) (test code = [facility] 1538) [address] POCT-GLUCOSE [id number] 12:50:00 Test Item Value Reference Range Interpretation Comments POC-GLUCOSE METER 152 mg/dL 70-110 H TESTED AT [place] [address] ([facility]) (test code = [facility] 1538) [address] HEMOGLOBIN [id number] 10:06:00 Test Item Value Reference Range Interpretation Comments HEMOGLOBIN A1C ([facility]) (test code = 7.0 % 4.3-6.1 H 368) [id number] 09:01:00 Test Item Value Reference Range Interpretation Comments PARTIAL THROMBOPLASTIN TIME 68.3 seconds 22.5-36.0 H ([facility]) (test code = 760) PLATELET AGGREGATION: FUNCTION [id number] 08:44:00 Test Item Value Reference Range Interpretation Comments WEAK ADP 84 % 60-91 RESULT([facility]) (test code = 2135) PLATELET FUNCTION 60-100% indicates SCREEN INTERP ([facility]) normal platelet (test code = 2173) function [id number] Cindy Velasquez MD ([facility]) (test code = (electronic signature) 1813) PLATELET COUNT AGG 175 K/CU MM 150-450 (BEAKER) (test code = 2656) Platelet Function Screen results may be falsely low with platelet counts<100,000/cu mm.POCT-GLUCOSE [id number] 08:23:00 Test Item Value Reference Range Interpretation Comments POC-GLUCOSE METER 185 mg/dL 70-[address] [facility] 67[address] (TAMIR) (test code = [place] 1538) [address] RAD, CHEST, 1 VIEW, NON [id number] 04:51:00Reason for exam:- >dyspneaShould this be performed [...] MDReport Verified Date/Time: 07/05/2018 04:51:23 Reading Location: [address] Reading Room B-TYPE NATRIURETIC FACTOR (BNP)2018-07-05 02:51:00 Test Item Value Reference Range Interpretation Comments B-TYPE NATRIURETIC PEPTIDE (BEAKER) 44 pg/mL 0-100 (test code = 700) [id number] 02:44:00 Test Item Value Reference Range Interpretation Comments MAGNESIUM (BEAKER) (test code = 2.3 mg/dL 1.6-2.6 627) BASIC METABOLIC [id number] 02:44:00 Test Item Value Reference Range Interpretation [...] S NOT APPLICABLE FOR DIALYSIS PATIEN TS. [id number] 02:42:00 Test Item Value Reference Range Interpretation Comments PARTIAL THROMBOPLASTIN TIME 63.2 seconds 22.5-36.0 H (BEAKER) (test code = 760) CBC W/PLT COUNT & AUTO [id number] 02:26:00 Test Item Value Reference Range Interpretation [...] PERCENT (BEAKER) (test code = 2801) POCT-GLUCOSE [id number] 21:12:00 Test Item Value Reference Range Interpretation Comments POC-GLUCOSE METER 204 mg/dL 70-[address] [facility] [address] (BEAKER) (test code = [facility] [address] TSH/FREE T4 IF [id number] 19:43:00 Test Item Value Reference Range Interpretation Comments THYROID STIMULATING HORMONE 4.44 uIU/mL 0.35-4.94 (BEAKER) (test code = 772) LIPID [id number] 19:23:00 Test Item Value Reference Range Interpretation [...] 130-159 High 160-189 Very High >=190HEPATIC FUNCTION [id number] 19:23:00 Test Item Value Reference Range Interpretation [...] code = 72 U/L 6-55 H 347) [id number] 19:21:00 Test Item Value Reference Range Interpretation [...] % 0-1 PERCENT (BEAKER) (test code = 6471)
[2021-05-12 07:13] LABS: Absolute Lymphocytes (CBC) 0.8 K/uL (0.7-4.9); Basophils % 0.1 % (0-1.3); Hematocrit 42.4 % (39.6-49.0); Lymphocytes % 9.5 % (15.3-44.8); MPV 8.2 fL (7.6-11.3); RBC Red Blood Cell Count 4.44 M/uL (4.33-5.43)
[2021-05-12 07:14] LABS: Protime INR 1.16
--- NOTE | 2021-05-12 08:19 | RAD REPORT ---
EXAM DESCRIPTION: RAD - Chest Single View - 05/12/2021 6:56 am CLINICAL HISTORY: DYSPNEA Chest pain. COMPARISON: Chest Single View dated 05/05/2021; Chest Single View dated 06/28/2020; Chest Single View dated 05/25/2019; Chest Single View dated 01/10/2019 FINDINGS: Portable technique limits examination quality. Moderate confluent airspace opacities are present, greater on right. This pattern is suspicious for u nderlying COVID-19 infection. The heart is mildly enlarged in size. Sternotomy wires noted.
[2021-05-12 08:41] LABS: ALT/SGPT 49 U/L (12-78); AST/SGOT 22 U/L (15-37); Albumin 2.6 g/dL (3.4-5.0); Alkaline Phosphatase 121 U/L (45-117); BUN Blood Urea Nitrogen 17 mg/dL (7-18); Bicarbonate 22 mmol/L (21-32); Bilirubin Direct 0.3 mg/dL (0-0.2); Bilirubin Total 0.8 mg/dL (0.2-1.0); Glucose Level 183 mg/dL (74-106); Protein, Total 7.3 g/dL (6.4-8.2); Sodium Level 140 mmol/L (136-145); Troponin (Emerg Dept Use Only) < 0.02 ng/mL (0.0-0.045)
[2021-05-12 08:55] LABS: Ferritin 1270.9 ng/mL (26-388)
[2021-05-12] MEDS ORDERED: METHYLPREDNISOLONE 125 MG INJ ONE (09:20)
--- NOTE | 2021-05-12 09:34 | ER ---
Nurse's Notes [facility] Anette Name: Drake Vallejo Age: 56 yrs Sex: Male : 1965 Arrival Date: 05/12/2021 Time: 06:32 Bed 7 Private MD: Diagnosis: Pneumonia due to SARS-associated coronavirus;SARS-associated coronavirus as the cause of diseases classified elsewhere;Acute respiratory failure with hypoxia Presentation: 05/12 06:34 Chief complaint: Patient states: Shortness of breath for the past couple hours. States wg he was here and diagnosed with Covid and given Regeneron the week of . EMS states pt was in the 80's at home and after 4L O2 went up to 93%. EMS stated they gave 125mg Solu-Medrol and 4mg Zofran for nausea. Pt states he feels much better now on O2. Coronavirus screen: Client reports previous positive COVID test result. Date of collection: May 05, 2021. Ebola Screen: Patient negative for fever greater than or equal to 101.5 degrees Fahrenheit, and additional compatible Ebola Virus Disease symptoms Patient denies exposure to infectious person. Patient denies travel to an Ebola-affected area in the 21 days before illness onset. No symptoms or risks identified at this time. Initial Sepsis Screen: Does the patient meet any 2 criteria? No. Patient's initial sepsis screen is negative. Does the patient have a suspected source of infection? No. Patient's initial sepsis screen is negative. Risk Assessment: Do you want to hurt yourself or someone else? Patient reports no desire to harm self or others. Onset of symptoms was May 12, 2021 at 04:30. Care prior to arrival: Medication(s) given: Normal saline infusion, zofran solumedrol. 06:34 Method Of Arrival: EMS: [facility] 06:34 Acuity: TERI 3 wg Triage Assessment: 06:42 General: Appears distressed, obese, well groomed, Behavior is cooperative, appropriate wg for age, anxious. Pain: Denies pain. EENT: No deficits noted. Neuro: No deficits noted. Cardiovascular: No deficits noted. Respiratory: Reports shortness of breath. GI: No deficits noted. : No deficits noted. Derm: No deficits noted. Musculoskeletal: No deficits noted. Historical: - Allergies: 06:42 NKDA; wg - Home Meds: 06:42 glimepiride Oral [Active]; Multiple Vitamins Oral tab [Active]; metformin 500 mg Oral tr24 1 tab once daily [Active]; lisinopril Oral [Active]; - PMHx: 06:42 Diabetes - NIDDM; Hypertension; Myocardial infarction; CAD; wg - Immunization history:: Adult Immunizations up to date. - Social history:: Smoking status: Patient/guardian denies using tobacco, Patient uses alcohol, occasionally. Patient/guardian denies using street drugs, IV drugs. Screenin:21 Abuse screen: Denies threats or abuse. Nutritional screening: No deficits noted. jd3 Tuberculosis screening: No symptoms or risk factors identified. Fall Risk IV access (20 points). Ambulatory Aid- None/Bed Rest/Nurse Assist (0 pts). Gait- Normal/Bed Rest/Wheelchair (0 pts) Mental Status- Oriented to own ability (0 pts). Total Bae Fall Scale indicates No Risk (0-24 pts). Assessment: 06:55 Reassessment: Patient denies pain at this time. General: Appears in no apparent bc5 distress. Behavior is calm, cooperative, appropriate for age, Smells of Reports Denies fever. Pain: Denies pain. Neuro: No deficits noted. Cardiovascular: Rhythm is regular. Respiratory: Reports shortness of breath at rest on exertion. 07:20 General: Appears in no apparent distress. Behavior is calm, cooperative, appropriate jd3 for age. Pain: Denies pain. Neuro: Level of Consciousness is awake, alert, obeys commands, Oriented to person, place, time, situation. Cardiovascular: Capillary refill < 3 seconds Patient's skin is warm and dry. Rhythm is regular. Respiratory: Reports shortness of breath at rest on exertion Airway is patent Respiratory effort is even, unlabored, Respiratory pattern is regular, tachypnea. 09:30 Reassessment: Patient appears in no apparent distress at this time. No changes from jd3 previously documented assessment. Patient and/or family updated on plan of care and expected duration. Pain level reassessed. Patient is alert, oriented x 3, equal unlabored respirations, skin warm/dry/pink. 10:34 Reassessment: Patient appears in no apparent distress at this time. Patient and/or jd3 family updated on plan of care and expected duration. Pain level reassessed. Patient is alert, oriented x 3, equal unlabored respirations, skin warm/dry/pink. awaiting disposition. 12:17 Reassessment: Patient appears in no apparent distress at this time. No changes from jd3 previously documented assessment. Patient and/or family updated on plan of care and expected duration. Pain level reassessed. Patient is alert, oriented x 3, equal unlabored respirations, skin warm/dry/pink. report given to [facility] [place] at [facility]. 12:45 Reassessment: Patient appears in no apparent distress at this time. Patient and/or jd3 family updated on plan of care and expected duration. Pain level reassessed. Patient is alert, oriented x 3, equal unlabored respirations, skin warm/dry/pink. reported understanding of need for transfer. report given to EMS. Vital Signs: 06:34 BP 142 / 105; Pulse 88; Resp 22; Temp 98.5; Pulse Ox 95% on 4 lpm NC; Weight 106.59 kg; wg Height 6 ft. (182.88 cm); Pain 0/10; 07:21 BP 125 / 84; Pulse 83; Resp 21 S; Pulse Ox 96% on 4 lpm NC; jd3 09:30 BP 141 / 99; Pulse 82; Resp 21 S; Pulse Ox 96% on 4 lpm NC; jd3 10:35 Pulse 83; Resp 20 S; Pulse Ox 96% on 4 lpm NC; jd3 12:17 Pulse 82; Resp 20 S; Pulse Ox 94% on 4 lpm NC; jd3 06:34 Body Mass Index 31.87 (106.59 kg, 182.88 cm) wg ED Course: 06:32 Patient arrived in ED. mw2 06:34 Zia Kauffman, RAINA is Primary Nurse. wg 06:36 Neal Pillai PA is PHCP. jr8 06:36 Jeronimo Pandey MD is Attending Physician. jr8 06:40 Triage completed. wg 06:42 Arm band placed on left wrist. wg 06:56 CXR XRAY In Process Unspecified. EDMS 07:19 Nurse Practitioner and/or Physician Tie Tamper to see patient. jd3 07:21 Patient has correct armband on for positive identification. Bed in low position. Call j light in reach. Side rails up X 1. satellite project site monitor on. Pulse ox on. NIBP on. 07:23 Notified Nurse Practitioner and/or Physician Tie Tamper of a critical lab result(s), jd3 D-dimer of 725. 09:26 Abdoul Alvarez DO is Hospitalizing Provider. jr8 09:52 CT Chest For PE Angio In Process Unspecified. EDMS 10:37 initiated transfer to [facility]. bd 12:45 No provider procedures requiring assistance completed. Patient admitted, IV remains in jd3 place. Administered Medications: 09:28 Drug: SOLU-Medrol (methylPrednisoLONE) 125 mg Route: IVP; Site: right wrist; jd3 10:20 Follow up: Response: No adverse reaction jd3 09:29 CANCELLED (Physician Discretion): Albuterol - atroVENT (ipratropium) (3:1) (2.5 mg - jd3 0.5 mg) 3 ml Nebulizer once Outcome: 09:34 Decision to Hospitalize by Provider. jr8 11:41 ER care complete, transfer ordered by MD. jr8 12:45 Transferred by ground EMS to [facility], Transfer form completed. jd3 X-rays sent w/ patient. 12:45 Condition: stable 12:45 Instructed on the need for transfer. 12:49 Patient left the ED. jd3 Signatures: Dispatcher [employer] EDMS Tia Johnson Josh, PA PA jr8 Victor M Parker RN RN jd3 Alannah Puentes mw2 Zia Kauffman RN Patricia Mcgee RN RN bc5 Corrections: (The following items were deleted from the chart) 09:29 09:28 Albuterol - atroVENT (ipratropium) (3:1) (2.5 mg - 0.5 mg) 3 ml Nebulizer jd3 jd3 12:18 12:17 Reassessment: Patient appears in no apparent distress at this time. No changes jd3 from previously documented assessment. Patient and/or family updated on plan of care and expected duration. Pain level reassessed. Patient is alert, oriented x 3, equal unlabored respirations, skin warm/dry/pink. jd3
--- NOTE | 2021-05-12 09:34 | EDPHYS ---
Physician Documentation [facility] Name: Drake Vallejo Age: 56 yrs Sex: Male : 1965 Arrival Date: 05/12/2021 Time: 06:32 Bed 7 Private MD: ED Physician Jeronimo Pandey HPI: 05/12 08:16 This 56 yrs old Male presents to ER via EMS with complaints of shortness of jr8 breath. 08:16 The patient has shortness of breath at rest, with light activity. Onset: The jr8 symptoms/episode began/occurred gradually. Duration: The symptoms are continuous. The patient's shortness of breath is aggravated by light activity. Associated signs and symptoms: Pertinent positives: nausea, vomiting, Fatigue, myalgias, malaise. Severity of symptoms: At their worst the symptoms were moderate in the emergency department the symptoms are unchanged. The patient has not experienced similar symptoms in the past. The patient has been recently seen by a physician:. This is a 56-year-old male patient that was brought in by EMS for increased shortness of breath. Patient was diagnosed with Covid approximately 1 week ago. Was able to get the Regeneron infusion and has been at home with [id number] supplementation for now. Patient stated that he has a home oxygen monitor but currently is not on oxygen therapy. Has been dropping as low as the 70s on exertion and 80s to low 90s at rest. Patient stated that he is feeling worse and unable to take care of himself at home at this point.. Historical: - Allergies: 06:42 NKDA; wg - Home Meds: 06:42 glimepiride Oral [Active]; Multiple Vitamins Oral tab [Active]; metformin 500 mg Oral wg tr24 1 tab once daily [Active]; lisinopril Oral [Active]; - PMHx: 06:42 Diabetes - NIDDM; Hypertension; Myocardial infarction; CAD; wg - Immunization history:: Adult Immunizations up to date. - Social history:: Smoking status: Patient/guardian denies using tobacco, Patient uses alcohol, occasionally. Patient/guardian denies using street drugs, IV drugs. ROS: 08:16 Cardiovascular: Negative for chest pain, palpitations, and edema, Back: Negative for jr8 injury and pain, MS/Extremity: Negative for injury and deformity, Skin: Negative for injury, rash, and discoloration, Neuro: Negative for headache, weakness, numbness, tingling, and seizure. 08:16 Constitutional: Positive for fatigue, malaise. 08:16 Respiratory: Positive for dyspnea on exertion, shortness of breath. 08:16 Abdomen/GI: Positive for nausea and vomiting, Negative for abdominal pain, diarrhea. 08:16 All other systems are negative. Exam: 08:16 Eyes: Pupils equal round and reactive to light, extra-ocular motions intact. Lids and jr8 lashes normal. Conjunctiva and sclera are non-icteric and not injected. Cornea within normal limits. Periorbital areas with no swelling, redness, or edema. ENT: Nares patent. No nasal discharge, no septal abnormalities noted. Tympanic membranes are normal and external auditory canals are clear. Oropharynx with no redness, swelling, or masses, exudates, or evidence of obstruction, uvula midline. Mucous membranes moist. Neck: Trachea midline, no thyromegaly or masses palpated, and no cervical lymphadenopathy. Supple, full range of motion without nuchal rigidity, or vertebral point tenderness. No Meningismus. Cardiovascular: Regular rate and rhythm with a normal S1 and S2. No gallops, murmurs, or rubs. Normal PMI, no JVD. No pulse deficits. Abdomen/GI: Soft, non-tender, with normal bowel sounds. No distension or tympany. No guarding or rebound. No evidence of tenderness throughout. Back: No spinal tenderness. No costovertebral tenderness. Full range of motion. Skin: Warm, dry with normal turgor. Normal color with no rashes, no lesions, and no evidence of cellulitis. MS/ Extremity: Pulses equal, no cyanosis. Neurovascular intact. Full, normal range of motion. Neuro: Awake and alert, GCS 15, oriented to person, place, time, and situation. Cranial nerves II-XII grossly intact. Motor strength 5/5 in all extremities. Sensory grossly intact. 08:16 Respiratory: the patient does not display signs of respiratory distress, Respirations: tachypnea, that is mild, Breath sounds: are clear throughout. Vital Signs: 06:34 BP 142 / 105; Pulse 88; Resp 22; Temp 98.5; Pulse Ox 95% on 4 lpm NC; Weight 106.59 kg; wg Height 6 ft. (182.88 cm); Pain 0/10; 07:21 BP 125 / 84; Pulse 83; Resp 21 S; Pulse Ox 96% on 4 lpm NC; jd3 09:30 BP 141 / 99; Pulse 82; Resp 21 S; Pulse Ox 96% on 4 lpm NC; jd3 10:35 Pulse 83; Resp 20 S; Pulse Ox 96% on 4 lpm NC; jd3 12:17 Pulse 82; Resp 20 S; Pulse Ox 94% on 4 lpm NC; jd3 06:34 Body Mass Index 31.87 (106.59 kg, 182.88 cm) wg MDM: 06:36 Patient medically screened. jr8 09:25 Data reviewed: vital signs, nurses notes, lab test result(s), EKG, radiologic studies, jr8 plain films. Data interpreted: Pulse oximetry: on room air is 86 %. Interpretation: hypoxia. Counseling: I had a detailed discussion with the patient and/or guardian regarding: the historical points, exam findings, and any diagnostic results supporting the discharge/admit diagnosis, lab results, radiology results, the need for further work-up and treatment in the hospital. 05/12 06:39 Order name: BMP 05/12 06:39 Order name: C-Reactive Protein 05/12 06:39 Order name: CBC with Diff 05/12 06:39 Order name: D-Dimer 05/12 06:39 Order name: Ferritin 05/12 06:39 Order name: LFT's; Complete Time: 09:24 05/12 06:39 Order name: Lactate; Complete Time: 08:19 05/12 06:39 Order name: PT-INR; Complete Time: 08:19 05/12 06:39 Order name: Procalcitonin; Complete Time: 08:19 05/12 06:39 Order name: Ptt, Activated; Complete Time: 08:19 05/12 06:39 Order name: Troponin (emerg Dept Use Only); Complete Time: 09:24 05/12 06:39 Order name: Basic Metabolic Panel; Complete Time: 09:24 EDMS 05/12 06:39 Order name: C-Reactive Protein; Complete Time: 09:24 EDTN 05/12 06:39 Order name: CBC with Automated Diff; Complete Time: 08:19 EDMS 05/12 06:39 Order name: CXR XRAY; Complete Time: 08:19 jr8 05/12 06:39 Order name: EKG; Complete Time: 06:39 jr8 05/12 06:39 Order name: Cardiac monitoring; Complete Time: 06:47 8 05/12 06:39 Order name: Droplet/Contact Precautions; Complete Time: 06:47 8 05/12 06:39 Order name: EKG - Nurse/Tech; Complete Time: 06:47 8 05/12 06:39 Order name: IV Start; Complete Time: 06:47 8 05/12 06:39 Order name: Labs collected and sent; Complete Time: 06:51 8 05/12 06:39 Order name: O2 Per Protocol; Complete Time: 06:47 8 05/12 06:39 Order name: O2 Sat Monitoring; Complete Time: 06:47 05/12 06:39 Order name: D-Dimer; Complete Time: 08:19 EDMS 05/12 06:39 Order name: Ferritin; Complete Time: 09:24 EDMS 05/12 09:25 Order name: CT Chest For PE Angio; Complete Time: 10:08 8 Administered Medications: 09:28 Drug: SOLU-Medrol (methylPrednisoLONE) 125 mg Route: IVP; Site: right wrist; jd3 10:20 Follow up: Response: No adverse reaction jd3 09:29 CANCELLED (Physician Discretion): Albuterol - atroVENT (ipratropium) (3:1) (2.5 mg - jd3 0.5 mg) 3 ml Nebulizer once Disposition Summary: 05/12/21 11:41 Transfer Ordered Transfer Location: [facility] jr8 Reason: Higher level of care jr8 Condition: Stable(05/12/21 11:41) jr8 Problem: new(05/12/21 11:41) jr8 Symptoms: have improved(05/12/21 11:41) jr8 Accepting Physician: Dr. Wilson(05/12/21 12:49) jd3 Diagnosis - Pneumonia due to SARS-associated coronavirus(05/12/21 11:41) jr8 - SARS-associated coronavirus as the cause of diseases classified elsewhere(05/12/21 jr8 11:41) - Acute respiratory failure with hypoxia(05/12/21 11:41) jr8 Forms: - Medication Reconciliation Form jr8 - SBAR form jr8 Addendum: 05/14/2021 19:00 Co-signature as Attending Physician, Jeronimo pulido Signatures: Dispatcher [employer] EDMS Jeronimo Pandey MD MD pkNeal Anguiano, LASHANDA PYLE jr8 Victor M Parker RN RN jZia Sandy RN wg Corrections: (The following items were deleted from the chart) 05/12 09: 09:28 Albuterol - atroVENT (ipratropium) (3:1) (2.5 mg - 0.5 mg) 3 ml Nebulizer once jd3 ordered. jd3 09:28 Albuterol - atroVENT (ipratropium) (3:1) (2.5 mg - 0.5 mg) 3 ml Nebulizer once jd3 given. jd3 09:29 Albuterol - atroVENT (ipratropium) (3:1) (2.5 mg - 0.5 mg) 3 ml Nebulizer once jd3 ordered. jd3 11:40 09:34 Inpatient Admission jr8 jr8 11:40 09:34 Abdoul Alvarez 8 jr8 11:40 09:34 Telemetry/MedSurg (Inpatient) jr8 jr8 11:40 09:34 Fair jr8 jr8 11:40 09:34 new 8 jr8 11:40 09:34 have improved jr8 jr8 11:40 09:34 Standard 8 jr8 11:40 09:34 jr8 jr8 11:40 09:34 Pneumonia due to SARS-associated coronavirus 8 jr8 11:40 09:34 SARS-associated coronavirus as the cause of diseases classified elsewhere jr8 jr8 11:40 09:34 Acute respiratory failure with hypoxia jr8 jr8 12:49 11:41 Dr. Wilson jr8 jd3
--- NOTE | 2021-05-12 10:07 | RAD REPORT ---
EXAM DESCRIPTION: CT - Chest For Pe Angio - 05/12/2021 9:52 am CLINICAL HISTORY: Chest pain. DYSPNEA COMPARISON: No comparisons TECHNIQUE: CT angiogram of the pulmonary arteries was performed with MIP. All CT scans are performed using dose optimization technique as appropriate and may include automated exposure control or mA/KV adjustment according to patient size. FINDINGS: No evidence of pulmonary thromboembolism. No acute aortic finding demonstrated. Moderate confluent airspace opacity is present bilaterally particularly in the periphery of both lung s in both lower lobes. No significant pericardial or pleural fluid. No concerning bony finding. IMPRESSION: No evidence of pulmonary thromboembolism. Confluent airspace opacity in the periphery of both lungs and lower lobes likely related to COVID-19 infection.
[2021-05-12 13:04] VITALS: TEMP 98.5
[2021-05-12 13:07] VITALS: BP 141/99
[2021-05-12 13:09] VITALS: O2SAT 94
--- NOTE | 2021-05-13 14:40 | EKG ---
Test Date: 2021-05-12 Test Time: 06:44:17 It Communications Manager: MEASUREMENT RESULTS: Intervals: Rate: 83 FL: 140 QRSD: 100 QT: 400 QTc: 470 [place]: P: 25 FL: 140 QRS: -26 T: 49 INTERPRETIVE STATEMENTS: Sinus rhythm with occasional premature ventricular complexes Possible Left atrial enlargement Incomplete right bundle branch block Left ventricular hypertrophy Nonspecific ST and T wave abnormality Prolonged QT Abnormal ECG Compared to ECG 06/28/2020 20:13:53 Left ventricular hypertrophy now present ST (T wave) deviation now present Prolonged QT interval now present T-wave abnormality no longer present Electronically Signed On 05-13-21 14:38:34 CDT by Ferny Willoughby
== END 2021-05-12 12:49 | disposition short-term general hospital (02) ==
LOC: ER 06:30
DX: U07.1 COVID-19 (principal); J12.82 Pneumonia due to coronavirus disease 2019; J96.01 Acute respiratory failure with hypoxia; I10 Essential (primary) hypertension; E11.9 Type 2 diabetes mellitus without complications; I25.2 Old myocardial infarction
CPT/HCPCS: 93005; 85025; 80048; 36415; 85610; 85379; 80076; 83605; 85730; 84484; 82728; 84145; 86140; 71275; 71045; 96374; 99285; Q9967; J2930

== ENCOUNTER 2022-04-16 04:37 | Emergency (ER) | payer BC ==
--- OUTSIDE RECORDS SUMMARY | 2022-04-16 04:44 | XMS REPORT | Continuity of Care Document ---
:1965 Author Organization [facility] t Address [address] [place] [address] Care Team Providers Name Role Phone MALLORY LEBLANC Primary Care Physician Unavailable SOREN WILSON Attending Clinician Unavailable DR MALLORY LEBLANC Attending Clinician Unavailable [phone] Attending Clinician Unavailable Soren Wilson MD Attending Clinician Tim Vyas MD Attending Clinician DONALDO JUSTICE Attending Clinician Unavailable SOREN WILSON Admitting Clinician Unavailable DR MALLORY LEBLANC Admitting Clinician Unavailable DONALDO JUSTICE Admitting Clinician Unavailable Payers Payer Name Policy Type Policy Number Effective Date Expiration Date S helen BLUE CROSS BLUE [id number] SHIELD - OP BCBS PPO POS EPO [id number] 2019 CHOICE 00:00:00 Problems Condition Condition Condition Status Onset Resolution Last Treating Co mments Source Name Details Category Date Date Treatment Clinician Date COVID-19 COVID-19 [facility] Coronary Coronary Disease Active 2017-08 [facility]12 [facility] disease disease 00:00: Medical involving involving 00 Cent [facility] [place] coronary coronary artery of artery of [place] heart with heart with angina angina pectoris pectoris Diastolic Diastolic Disease Active 2017-[address] [facility] CHF CHF 112 [facility] 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 [facility] diabetes diabetes 12 [facility] mellitus mellitus 00:00: Medica l 00 Center HTN HTN Disease Active 2017-[address] (hypertens (hypertens 1-12 [facility] ion) ion) 00:00: Medical 00 Center JOSE CRUZ JOSE CRUZ Disease Active 2017-[address] (obstructi (obstructi 12 [facility] ve sleep ve sleep 00:00: Medica l apnea) apnea) 00 Center HLD HLD Disease Active 2017-[address] (hyperlipi (hyperlipi 12 [facility] demia) demia) 00:00: Medical 00 Center Postoperat Postoperat Disease Active 2017-[address] norma pain norma pain 09-06 [facility] 00:00: Medical 00 Nutrioso Acute Acute Disease Active 2017-[address] respirator respirator 108 [facility] y y 00:00: Medical insufficie insufficie 00 Ce nter ncy ncy Other Other Disease Active 2017-[address] [facility] shock shock 09-05 [facility] 00:[facility] 00 Center AMI (acute AMI (acute Disease Active 2017-[address] myocardial myocardial 1-06 [facility] infarction infarction 00:00: De dical ) ) 00 Center Type 2 Type 2 Disease Active Methodi diabetes diabetes 3-04 st mellitus mellitus 00:00: Hospit a without without 00 l complicati complicati on on Obesity Obesity Disease Active [facility] (BMI (BMI 3-04 st 30-39.9) 30-39.9) 00:00: Hospit a 00 l Essential Essential Disease Active Met hodi hypertensi hypertensi 3-04 st on on 00:00: Hospita 00 l 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 00:00: Hospit a 00 l S/P CABG x S/P CABG x Disease Active [facility] 1 1 [facility] Allergies, Adverse Reactions, Alerts Allergy Allergy Status Severity Reaction(s) Onset Inactive Treating Comm ents Source Name Type Date Date Clinician HYDROCOD Allergy Active Other 2017-08 [facility] ONE-ACET 08 AMINOPHE 00:00: N 00 Hydrocod Propensi Active Other (See 2017-[address] one-Acet ty to Comments) 09-05 headed Berhane aminophe adverse 00:00: Medical n reaction 00 Center s Family History Family Member Diagnosis Comments Start Date Stop Date Source Maternal grandmother Heart disease [facility] Maternal grandmother Cancer [facility] Maternal uncle Stroke [facility] Natural mother Diabetes [facility] Natural mother Heart disease [facility] Natural mother Hypertension [facility] Natural mother Stroke [facility] Paternal uncle Diabetes [facility] Natural father Cancer [facility] Social History Social Habit Start Date Stop Date Quantity Comments Source History SDOH [facility] Alcohol Frequency Medical Center History SDOH [facility] Alcohol Std Medical Cente r Drinks History SDOH [facility] Alcohol Binge Medical Tresa [facility] Alcohol Comment 2021-05-12 2021-05-12 only1, [address] [facility] 00:00:00 00:00:00 year [facility] Tobacco Comment 2021-05-12 2021-05-12 stop smoking [address] [facility] 00:00:00 00:00:00 years ago [facility] Alcohol intake 2017-10-30 2017-10-30 1.71 /d Jew 00:00:00 00:00:00 Hospital Tobacco use and 2017-10-28 2017-10-28 User of smokeless Me [facility] exposure 00:00:00 00:00:00 tobacco Hospital Sex Ass[birth year] At [birth year] Jew 00:00:00 00:00:00 Hospital Smoking Status Start Date Stop Date Source Former smoker 2021-05-12 00:00:00 2021-05-12 00:00:00 [facility] Never smoker [facility] Medications Ordered Filled Start Stop Current Ordering Indication Dosage Frequency Signature Comments Components Source Medication Medication Date Date Medication? Clinician (SIG) Name Name queenieFranklinatul 2020- No 6mg QD Take [address] ne 05-14 09-21 tablet (6 [facility] (DECADRON) 00:00: 23:59 mg total) M edical 6 MG tablet 00 :00 by mouth Cent er daily for 5 days. carvedilol Yes 25mg Take [address] (COREG) 25 9-15 by mouth 2 Olivia es MG tablet 11:27: (two) Medical 57 times Center daily with breakfast and dinner. atorvastati Yes 80mg QD Take [address] n (LIPITOR) 9-15 by mouth Luke s 80 MG 11:27: daily. Medical tablet 57 Center aspirin 81 Yes 81mg QD Take [address] MG EC 9-15 by mouth [facility] tablet 11:27: daily. Medical 57 Center ascorbic Yes 1000mg QD Take 1,[address] acid, 9-15 mg by [facility] vitamin C, 11:27: mouth Medica l (VITAMIN C) 57 daily. Center 1000 MG tablet metFORMIN Yes 500mg Take [address] (GLUCOPHAGE 9-15 mg by [facility] ) 500 MG 11:27: mouth 2 Medica l tablet 57 (two) Center times daily with breakfast and dinner. glimepiride Yes 2mg Q.5D Take [address] (AMARYL) 2 9-15 by mouth 2 Olivia es MG tablet 11:27: (two) Medical 57 times Center daily. ranitidine Yes 150mg QD Take [address] (ZANTAC) 9-15 mg by [facility] 150 MG 11:27: mouth Medical capsule 57 daily. [place] nitroglycer Yes .4mg Place 0.[address] in 9-15 mg under [facility] (NITROSTAT) 11:27: the Medica l 0.4 MG SL 57 tongue. Center tablet carvedilol 2017-08 Yes 25mg Take [address] (COREG) 25 1-13 by mouth 2 Olivia es MG tablet 17:24: (two) Medical 00 times Center daily with breakfast and dinner. atorvastati 2017-08 Yes 80mg QD Take [address] n (LIPITOR) 1-13 by mouth Luke s 80 MG 17:24: daily. Medical tablet 00 Center aspirin 81 2017-08 Yes 81mg QD Take [address] MG EC 1-13 by mouth [facility] tablet 17:24: daily. Medical 00 Center ascorbic 2017-08 Yes 1000mg QD Take 1,[address] acid, 1-13 mg by [facility] vitamin C, 17:24: mouth Medica l (VITAMIN C) 00 daily. Center 1000 MG tablet metFORMIN 2017-08 Yes 500mg Take [address] (GLUCOPHAGE 1-13 mg by [facility] ) 500 MG 17:24: mouth 2 Medica l tablet 00 (two) Center times daily with breakfast and dinner. glimepiride 2017-08 Yes 2mg Q.5D Take [address] (AMARYL) 2 1-13 by mouth 2 Olivia es MG tablet 17:24: (two) Medical 00 times Center daily. ranitidine 2017-08 Yes 150mg QD Take [address] (ZANTAC) 1-13 mg by [facility] 150 MG 17:24: mouth Medical capsule 00 daily. Center nitroglycer 2017-[address] 0[address] in 1-13 mg under [facility] (NITROSTAT) 17:24: the Medica l 0.4 MG SL 00 tongue. Center tablet carvedilol 2017-08 Yes 25mg Take [address] (COREG) 25 1-13 by mouth 2 Olivia es MG tablet 17:24: (two) Medical 00 times Center daily with breakfast and dinner. atorvastati 2017-08 Yes 80mg QD Take [address] n (LIPITOR) 1-13 by mouth Luke s 80 MG 17:24: daily. Medical tablet 00 Center aspirin 81 2017-08 Yes 81mg QD Take [address] MG EC 1-13 by mouth [facility] tablet 17:24: daily. Medical 00 Center ascorbic 2017-08 Yes 1000mg QD Take 1,[address] acid, 1-13 mg by [facility] vitamin C, 17:24: mouth Medica l (VITAMIN C) 00 daily. Center 1000 MG tablet metFORMIN 2017-08 Yes 500mg Take [address] (GLUCOPHAGE 1-13 mg by [facility] ) 500 MG 17:24: mouth 2 Medica l tablet 00 (two) Center times daily with breakfast and dinner. glimepiride 2017-08 Yes 2mg Q.5D Take [address] (AMARYL) 2 1-13 by mouth 2 Olivia es MG tablet 17:24: (two) Medical 00 times Center daily. ranitidine 2017-08 Yes 150mg QD Take [address] (ZANTAC) 1-13 mg by [facility] 150 MG 17:24: mouth Medical capsule 00 daily. Center nitroglycer 2017-[address] 0[address] in 1-13 mg under [facility] (NITROSTAT) 17:24: the Medica l 0.4 MG SL 00 tongue. Center tablet clopidogrel 2018-0 Yes 75mg QD Take 75 [...] 20:54: mouth Hospita tablet 18 daily. l citalopram 2018-0 Yes 20mg QD Take [...] 20:54: mouth Hospita tablet 18 daily. l citalopram 2018-0 Yes 20mg QD Take 20 mg M ethodi (CeleXA) 20 3-[address] MG tablet 20:54: daily. Hospit a 18 l citalopram 2018-0 Yes 20mg QD Take 20 mg M ethodi (CeleXA) 20 3-[address] MG tablet 14:54: daily. Hospit a 18 l clopidogrel 2018-0 Yes 75mg QD Take 75 mg Methodi (PLAVIX) 75 3-[address] mg tablet 14:54: daily. Hospit a 18 l carvedilol 2018-0 Yes 25mg Q.5D Take 25 mg M ethodi (COREG) 25 3-[address] MG tablet 14:54: (two) Hospita 18 times a l day with meals. atorvastati 2018-0 Yes 40mg Q.5D Take 40 mg Methodi n (LIPITOR) 3-[address] 40 MG 14:54: (two) Hospita tablet 18 times a l day. aspirin 2018-0 Yes 81mg QD Take 81 mg Meth alejandra (ECOTRIN) 3-[address] 81 MG 14:54: daily. Hospita enteric 18 l coated tablet nitroglycer 2018-[address] 0.4 M ethodi in 3-[address] (NITROSTAT) 14:54: the tongue Hospita 0.4 MG SL 18 every 5 l tablet (five) minutes as needed for chest pain. ascorbic 2018-0 Yes 500mg QD Take 500 Meth alejandra acid, 3-[address] vitamin C, 14:54: mouth Hospit a (VITAMIN C) 18 daily. l 500 MG tablet multivitami 2018-0 Yes 1{tbl} QD Take 1 Me thodi n 3-[address] (THERAGRAN) 14:54: mouth Hospi ta tablet 18 daily. l ranitidine 2018-0 Yes 150mg Take 150 Me thodi (ZANTAC) 3-[address] 150 MG 14:54: mouth Hospita tablet 18 daily. l citalopram 2018-0 Yes 20mg QD Take 20 mg M ethodi (CeleXA) 20 3-[address] MG tablet 14:54: daily. Hospit a 18 l clopidogrel 2018-0 Yes 75mg QD Take 75 mg Methodi (PLAVIX) 75 3-[address] mg tablet 14:54: daily. Hospit a 18 l carvedilol 2018-0 Yes 25mg Q.5D Take 25 mg M ethodi (COREG) 25 3-[address] MG tablet 14:54: (two) Hospita 18 times a l day with meals. atorvastati 2018-0 Yes 40mg Q.5D Take 40 mg Methodi n (LIPITOR) 3-[address] 40 MG 14:54: (two) Hospita tablet 18 times a l day. aspirin 2018-0 Yes 81mg QD Take 81 mg Meth alejandra (ECOTRIN) 3-[address] 81 MG 14:54: daily. Hospita enteric 18 l coated tablet nitroglycer 2018-[address] 0.4 M ethodi in 3-[address] (NITROSTAT) 14:54: the tongue Hospita 0.4 MG SL 18 every 5 l tablet (five) minutes as needed for chest pain. ascorbic 2017- Yes 500mg QD Take 500 Meth alejandra acid, 3-[address] vitamin C, 14:54: mouth Hospit a (VITAMIN C) 18 daily. l 500 MG tablet multivitami Yes 1{tbl} QD Take 1 Me thodi n 3-[address] (THERAGRAN) 14:54: mouth Hospi ta tablet 18 daily. l ranitidine Yes 150mg Take 150 Me thodi (ZANTAC) 3-[address] 150 MG 14:54: mouth Hospita tablet 18 daily. l Vital Signs Vital Name Observation Time Observation Value Comments Source HEIGHT 2021-05-13 08:00:00 180.3 cm WEIGHT 2021-05-13 08:00:00 106.595 kg HEIGHT 2021-05-13 08:00:00 180.3 cm WEIGHT 2021-05-13 08:00:00 106.595 kg Body height 2021-05-13 08:00:00 180.3 cm [facility] Body weight 2021-05-13 08:00:00 106.595 kg [facility] BMI 2021-05-13 08:00:00 32.78 kg/m2 [facility] Oxygen saturation in 2021-05-13 07:26:00 94 /min [facility] Arterial blood by Medical Ce nter Pulse oximetry Systolic blood 2021-05-13 07:26:00 128 mm[Hg] [facility] Diastolic blood 2021-05-13 07:26:00 85 mm[Hg] [facility] S [facility] Heart rate 2021-05-13 07:26:00 64 /min [facility] Body temperature 2021-05-13 07:26:00 36.22 Charlene [facility] Respiratory rate 2021-05-13 07:26:00 20 /min [facility] Procedures Procedure Date / Time Performed Performing Clinician Joi gaspar POCT-GLUCOSE METER 2021-05-13 07:43:00 Tim Vyas [facility] BASIC METABOLIC PANEL 2021-05-13 04:21:00 [facility] () [facility] HEPATIC FUNCTION PANEL 2021-05-13 04:21:00 [facility] HEMOGLOBIN A1C 2021-05-13 04:21:00 [facility] LIPID PANEL 2021-05-13 04:21:00 [facility] PROTHROMBIN TIME/INR 2021-05-13 04:21:00 [facility] CBC W/PLT COUNT & AUTO 2021-05-13 04:21:00 [facility] C-REACTIVE PROTEIN 2021-05-13 04:21:00 [facility] FERRITIN 2021-05-13 04:21:00 [facility] D-DIMER 2021-05-13 04:21:00 [facility] CBC W/PLT COUNT & AUTO 2021-05-13 04:21:00 [facility] POCT-GLUCOSE METER 2021-05-12 19:38:00 [facility] POCT-GLUCOSE METER 2021-05-12 16:42:00 [facility] Plan of Care Planned Activity Planned Date Details Comments Source Future Scheduled 2024-05-[address] [facility] s Test 00:00:00 (procedure) [code = Medical Center [id number]] Future Scheduled 2021-11-10 Hemoglobin A1c [facility] Test 00:00:00 [facility] (procedure) [code = [id number]] Future Scheduled 2021-09-29 COVID-19 VACCINE (1) [facility] Test 13:09:20 [code = COVID-19 VACCINE (1)] Future Scheduled 2021-09-29 COLONOSCOPY SCREENING [facility] Test 13:09:20 [code = COLONOSCOPY SCREENING] Future Scheduled 2021-09-29 SHINGLES VACCINES (#1) [facility] Test 13:09:20 [code = SHINGLES VACCINES (#1)] Future Scheduled 2021-09-29 INFLUENZA VACCINE Method [facility] Hospital Test 13:09:20 [code = INFLUENZA VACCINE] Future Scheduled 2021-09-29 COVID-19 [facility] ([facility] 13:09:20 [code = COVID-19 VACCINE (1)] Future Scheduled 2021-09-29 COLONOSCOPY SCREENING [facility] Test 13:09:20 [code = COLONOSCOPY SCREENING] Future Scheduled 2021-09-29 [facility] 13:09:20 [code = SHINGLES VACCINES (#1)] Future Scheduled 2021-09-29 INFLUENZA VACCINE Method ist Hospital Test 13:09:20 [code = INFLUENZA VACCINE] Future Scheduled 2021-07-[address] [facility] Test 00:00:00 (procedure) [code = Medical Center [id number]] Future Scheduled 2021-07-[address] Test 00:00:00 (procedure) [code = Medical Center [id number]] Future Scheduled 2021-04-29 INFLUENZA VACCINE (#1) [facility] Test 00:00:00 [code = INFLUENZA Medical Ce nter VACCINE (#1)] Future Scheduled 2021-04-[address] [facility] Test 00:00:00 (Season Ended) [code = Medic al Center INFLUENZA VACCINE (Season Ended)] Future Scheduled 2021-04-[address] [facility] Test 00:00:00 (Season Ended) [code = Medic al Center INFLUENZA VACCINE (Season Ended)] Future Scheduled 2020-08-[address] [facility] Test 00:00:00 (12+) [code = Medical Center DEPRESSION SCREENING (12+)] Future Scheduled 2020-08-[address] [facility] Test 00:00:00 (12+) [code = Medical Center DEPRESSION SCREENING (12+)] Future Scheduled 2020-08-[address] [facility] Test 00:00:00 (12+) [code = Medical Center DEPRESSION SCREENING (12+)] Future Scheduled 2019-01-[address] [facility] Test 00:00:00 measurement Medical Center (procedure) [code = 98239647] Future Scheduled 2019-01-[address] [facility] Test 00:00:00 measurement Medical Center (procedure) [code = 35095973] Future Scheduled 2015 SHINGLES VACCINES ([address] [facility] Test 00:00:00 of 2) [code = SHINGLES Medic al Center VACCINES (1 of 2)] Future Scheduled 2015 SHINGLES VACCINES ([address] [facility] Test 00:00:00 of 2) [code = SHINGLES Medic al Center VACCINES (1 of 2)] Future Scheduled 2015 SHINGLES VACCINES ([address] [facility] Test 00:00:00 of 2) [code = SHINGLES Medic al Center VACCINES (1 of 2)] Future Scheduled 1984-02-14 DTAP/TDAP/TD VACCINES [facility] Test 00:00:00 (1 - Tdap) [code = Medical C enter DTAP/TDAP/TD VACCINES (1 - Tdap)] Future Scheduled 1984-02-14 DTAP/TDAP/TD VACCINES [facility] Test 00:00:00 (1 - Tdap) [code = Medical C enter DTAP/TDAP/TD VACCINES (1 - Tdap)] Future Scheduled 1984-02-14 DTAP/TDAP/TD VACCINES [facility] Test 00:00:00 (1 - Tdap) [code = Medical C enter DTAP/TDAP/TD VACCINES (1 - Tdap)] Future Scheduled 1983 HEPATITIS C [facility]CRE[facility]ING [facility] Test 00:00:00 [code = HEPATITIS C Medical Center SCREENING] Future Scheduled 1983 HEPATITIS C [facility]CRE[facility] Test 00:00:00 [code = HEPATITIS C Medical Center SCREENING] Future Scheduled 1983 HEPATITIS C [facility]CRE[facility]ING [facility] Test 00:00:00 [code = HEPATITIS C Medical Center SCREENING] Future Scheduled 1977 COVID-19 VACCINE (1) [facility] Test 00:00:00 [code = COVID-[address] VACCINE (1)] Future Scheduled 1977 COVID-19 VACCINE (1) [facility] Test 00:00:00 [code = COVID-[address] VACCINE (1)] Future Scheduled [address] DIABETIC EYE EXAM [facility] Test 00:00:00 [code = DIABETIC EYE Medical Center EXAM] Future Scheduled [address] [facility] Test 00:00:00 examination Medical Center (regime/therapy) [code = 666106238] Future Scheduled 1975 Urine screening for [facility] Test 00:00:00 protein (procedure) Medical Center [code = 781800707] Future Scheduled [address] DIABETIC EYE EXAM [facility] Test 00:00:00 [code = DIABETIC EYE Medical Center EXAM] Future Scheduled [address] [facility] Test 00:00:00 examination Medical Center (regime/therapy) [code = 613631152] Future Scheduled 1975 Urine screening for [facility] Test 00:00:00 protein (procedure) Medical Center [code = 648211237] Future Scheduled [address] DIABETIC EYE EXAM [facility] Test 00:00:00 [code = DIABETIC EYE Medical Center EXAM] Future Scheduled [address] [facility] Test 00:00:00 examination Medical Center (regime/therapy) [code = 389198953] Future Scheduled 1975 Urine screening for [facility] Test 00:00:00 protein (procedure) Medical Center [code = 259742328] Future Scheduled [address] [facility] Test 00:00:00 0-64 YRS (1 of 2 - Medical C enter PPSV23) [code = PNEUMOCOCCAL VACCINE 0-64 YRS (1 of 2 - PPSV23)] Future Scheduled [address] [facility] Test 00:00:00 0-64 YRS (1 of 1 - Medical C enter PPSV23) [code = PNEUMOCOCCAL VACCINE 0-64 YRS (1 of 1 - PPSV23)] Future Scheduled [address] [facility] Test 00:00:00 0-64 YRS (1 of 1 - Medical C enter PPSV23) [code = PNEUMOCOCCAL VACCINE 0-64 YRS (1 of 1 - PPSV23)] Future Scheduled 1970 COVID-19 VACCINE (1) [facility] Test 00:00:00 [code = COVID-[address] VACCINE (1)] Future Scheduled [address] [facility] Test 00:00:00 malignant neoplasm of Medica l Center colon (procedure) [code = 988772785] Future Scheduled [address] [facility] Test 00:00:00 malignant neoplasm of Medica l Center colon (procedure) [code = 631681218] Future Scheduled [address] [facility] Test 00:00:00 malignant neoplasm of Medica l Center colon (procedure) [code = 698822555] Future Scheduled COVID-19 VACCINE (1) Met [facility] Test [code = COVID-19 VACCINE (1)] Future Scheduled COLONOSCOPY SCREENING [facility] Test [code = COLONOSCOPY SCREENING] Future Scheduled SHINGLES VACCINES (#1) M [facility] Test [code = SHINGLES VACCINES (#1)] Future Scheduled INFLUENZA VACCINE Method ist Hospital Test [code = INFLUENZA VACCINE] Future Scheduled COVID-19 VACCINE (1) Met [facility] Test [code = COVID-19 VACCINE (1)] Future Scheduled COLONOSCOPY SCREENING [facility] Test [code = COLONOSCOPY SCREENING] Future Scheduled SHINGLES VACCINES (#1) M [facility] Test [code = SHINGLES VACCINES (#1)] Future Scheduled INFLUENZA VACCINE Method ist Hospital Test [code = INFLUENZA VACCINE] Encounters Start End Encounter Admission Attending Care Care Encounter Source Date/Time Date/Time Type Type Clinicians Facility Department ID 2022-02-10 Outpatient ELCAMPO E[facility] [id number] El 10:20:05 [id number] [facility] 2021-12-31 Outpatient ELCAMPO E[facility] [id number] El 09:23:53 [id number] [facility] 2021-06-07 Inpatient [facility] [id number] [facility] 12:24:57 [facility] 2022-03-25 2022-03-25 Outpatient Jarad [facility] [id number] 07:33:00 07:33:00 [id number] [facility] 2021-12-31 2021-12-31 Outpatient [facility] [id number] El 09:26:00 09:26:00 [id number] [facility] 2021-05-12 2021-05-13 [facility] [id number] [facility] 14:00:00 11:27:00 Encounter Tim Vyas [facility] 2018-07-18 2018-07-18 Outpatient JANES KIDD [facility] [id number] [facility] 00:00:00 00:00:00 DONALDO Results Test Description Test Time Test Comments Results Result Comments Source Ferritin 2021-05-13 08:23:15 Test Item Value Reference Range Interpretation Comme nts Ferritin (test code = 2276-4) 2096.56 ng/mL 5.00-275.00 H MURIEL (test code = MURIEL) Central Supply Technician Supervisor ID - MAX MOperator ID - MAX M Lab Interpretation (test code = Abnormal 90619-3) [facility] 08:23[facility]15 Test Item Value Reference Range Interpretation Comments FERRITIN (BEAKER) (test code = 2096.56 ng/mL 5.00-275.00 H 361) Central Supply Technician Supervisor ID - MAX MOperator ID - MAX MPOC-Glucose [id number] 07:55:15 Test Item Value Reference Range Interpretation Comments POC-Glucose Meter (test 283 mg/dL 70-110 H : TE STED AT [facility] code = 1538) [address] [facility], 770 30: Central Supply Technician Supervisor/Techni israel ID = [id number] for Payal (contract )Reina Lab Interpretation (test Abnormal code = 17525-0) [facility] [id number] 07:55:15 Test Item Value Reference Range Interpretation Comments POC-GLUCOSE METER 283 mg/dL 70-110 H : TESTED A T [facility] 6720 (BEAKER) (test code = [facility], 1538) [address]: Central Supply Technician Supervisor/Techni israel ID = [id number] for Nishant holland (contract)Shireen Hemoglobin [id number] 07:46:02 Test Item Value Reference Range Interpretation Comments Hemoglobin A1C (test code = 4548-4) 8.5 % 4.3-6.1 H Lab Interpretation (test code = Abnormal 98501-6) [facility] [id number] 07:46:02 Test Item Value Reference Range Interpretation Comments HEMOGLOBIN A1C (BEAKER) (test code = 8.5 % 4.3-6.1 H 368) Lipid [id number] 05:25:49 Test Item Value Reference Range Interpretation Comments Triglycerides (test 220 mg/dL code = 2571-8) Cholesterol (test code 182 mg/dL = 2093-3) HDL (test code = 41 mg/dL 2085-9) LDL Calculated (test 97 mg/dL code = 69211-6) MURIEL (test code = MURIEL) Triglyceride Reference Range: Low Risk <150 Borderline 150-199 High Risk 200-499 Very High Risk >=500 Cholesterol Reference Range: Low Risk <200 Borderline 200-239 High Risk >240 HDL Cholesterol Reference Range: Low Risk >=60 High Risk <40 LDL Cholesterol Reference Range: Optimal <100 Near Optimal 100-129 Borderline 130-159 High 160-189 Very High >=190 Central Supply Technician Supervisor PAOLO Pimentel [facility] [id number] 05:25:49 Test Item Value Reference Range Interpretation Comments Protein, Total (test 7.1 See_Comment [Autom ated code = 2885-2) message] The system which generated this result transmit carmen reference range : 6.0 - 8.3 gm/dL . The reference range was not u sed to interpret th is result as normal/abnormal . Albumin (test code = 3.4 g/dL 3.5-5.0 L 99690-4) Total Bilirubin (test 0.6 mg/dL 0.2-1.2 code = 1975-2) Bilirubin, Direct 0.3 mg/dL 0.1-0.5 (test code = 1968-7) Alkaline Phosphatase 132 U/L 40-150 (test code = 6768-6) AST (test code = 35 U/L 5-34 H 1920-8) ALT (test code = 53 U/L 6-55 1742-6) MURIEL (test code = MURIEL) Central Supply Technician Supervisor ID Rigo Pimentel Lab Interpretation Abnormal (test code = 63877-3) [facility] [id number] 05:25:49 Test Item Value Reference Range Interpretation Comments CRP (test code = 676) 12.50 mg/dL 0.00-0.50 H MURIEL (test code = MURIEL) Central Supply Technician Supervisor ID Rgio Pimentel Lab Interpretation (test Abnormal code = 01642-7) [facility]IP[facility] [id number] 05:25:49 Test Item Value Reference Range Interpretation Comments TRIGLYCERIDES (BEAKER) (test code = 220 mg/dL 540) CHOLESTEROL (BEAKER) (test code = 182 mg/dL 631) HDL CHOLESTEROL (BEAKER) (test code 41 mg/dL = 976) LDL CHOLESTEROL CALCULATED (BEAKER) 97 mg/dL (test code = 633) Triglyceride Reference Range: Low Risk <150 Borderline 150-199 High Risk 200- 499 Very High Risk >=500Cholesterol Reference Range: Low Risk <200 Borderline 200-239 High Risk >240HDL Cholesterol Reference Range: Low Risk >=60 High Risk <40LDL Cholesterol Reference Range: Optimal <100 Near Optimal 100-129 Borderline 130-159 High 160-189 Very High >=190 Central Supply Technician Supervisor ID - MAX MHEPATIC FUNCTION [id number] 05:25:49 Test Item Value Reference Range Interpretation Comments TOTAL PROTEIN (BEAKER) (test code = 7.1 gm/dL 6.0-8.3 770) ALBUMIN (BEAKER) (test code = 1145) 3.4 g/dL 3.5-5.0 L BILIRUBIN TOTAL (BEAKER) (test code 0.6 mg/dL 0.2-1.2 = 377) BILIRUBIN DIRECT (BEAKER) (test 0.3 mg/dL 0.1-0.5 code = 706) ALKALINE PHOSPHATASE (BEAKER) (test 132 U/L 40-150 code = 346) AST (SGOT) (BEAKER) (test code = 35 U/L 5-34 H 353) ALT (SGPT) (BEAKER) (test code = 53 U/L 6-55 347) Central Supply Technician Supervisor ID - MAX MC-REACTIVE [id number] 05:25:49 Test Item Value Reference Range Interpretation Comments C-REACTIVE PROTEIN (BEAKER) (test 12.50 mg/dL 0.00-0.50 H code = 676) Central Supply Technician Supervisor ID - MAX MBasic metabolic [id number] 05:25:48 Test Item Value Reference Range Interpretation Comments Sodium (test code = 138 meq/L 130-652 1193-2) Potassium (test code = 4.3 meq/L 3.5-5.1 2823-3) Chloride (test code = 104 meq/L 98-107 2075-0) CO2 (test code = 22 meq/L 22-29 2028-9) BUN (test code = 20 mg/dL 7-21 3094-0) Creatinine (test code 0.88 mg/dL 0.57-1.25 = 2160-0) Glucose (test code = 314 mg/dL 70-105 H 2345-7) Calcium (test code = 9.5 mg/dL 8.4-10.2 68392-7) EGFR (test code = 90 mL/min/1.73 [place] [address]-1) NOT ACCURATE CREATININE CLEARANCE IN PREDICTING GLOMERULAR FILTRATION RATE . ESTIMATED GFR I S NOT APPLICABLE FOR DIALYSIS PATIENTS. MURIEL (test code = MURIEL) Central Supply Technician Supervisor ID - MAX M Lab Interpretation Abnormal (test code = 37754-7) [facility] METABOLIC [id number] 05:25:48 Test Item Value Reference Range Interpretation Comments SODIUM (BEAKER) 138 meq/L 136-145 (test code = 381) POTASSIUM (BEAKER) 4.3 meq/L 3.5-5.1 (test code = 379) CHLORIDE (BEAKER) 104 meq/L 98-107 (test code = 382) CO2 (BEAKER) (test 22 meq/L 22-29 code = 355) BLOOD UREA NITROGEN 20 mg/dL 7-21 (BEAKER) (test code = 354) CREATININE (BEAKER) 0.88 mg/dL 0.57-1.25 (test code = 358) GLUCOSE RANDOM 314 mg/dL 70-105 H (BEAKER) (test code = 652) CALCIUM (BEAKER) 9.5 mg/dL 8.4-10.2 (test code = 697) EGFR (BEAKER) (test 90 mL/min/1.73 ESTIMA CARMEN GFR IS code = 1092) sq m NOT ACCURATE CREATININE CLEARANCE IN PREDICTING GLOMERULAR FILTRATION RATE . ESTIMATED GFR I S NOT APPLICABLE FOR DIALYSIS PATIEN TS. Central Supply Technician Supervisor ID - MAX MCBC with platelet count + automated [id number] 05:03:38 Test Item Value Reference Range Interpretation Comments WBC (test code = 6690-2) 7.4 See_Comment [A utomated message] The system [employer] generated this result transmitted ref erence range: 3.5 - 10 .5 K/L. The refe rence range was not u sed to interpret this result as normal/abnor mal. RBC (test code = 789-8) 4.62 See_Comment L [Au tomated message] The system [employer] generated this result transmitted ref erence range: 4.63 - 6 .08 M/L. The refe rence range was not u sed to interpret this result as normal/abnor mal. MCHC (test code = 786-4) 33.5 See_Comment [A utomated message] The system [employer] generated this result transmitted ref erence range: 32.3 - 3 6.5 GM/DL. The refe rence range was not u sed to interpret this result as normal/abnor mal. Hematocrit (test code = 43.9 % 40.1-51.0 4544-3) MCV (test code = 787-2) 95.0 fL 79.0-92.2 H MCH (test code = 785-6) 31.8 pg 25.7-32.2 RDW (test code = 788-0) 12.1 % 11.6-14.4 Platelets (test code = 256 See_Comment [Aut omated message] 777-3) The system [employer] generated this result transmitted ref erence range: 150 - 45 0 K/CU MM. The referen ce range was not u sed to interpret this result as normal/abnor mal. MPV (test code = 10.4 fL 9.4-12.4 14434-0) nRBC (test code = 413) 0 See_Comment [Aut omated message] The system [employer] generated this result transmitted ref erence range: 0 - 0 /1 00 WBC. The refere nce range was not u sed to interpret this result as normal/abnor mal. % Neutros (test code = 80 % 429) % Lymphs (test code = 12 % 430) % Monos (test code = 6 % 431) % Eos (test code = 432) 0 % % Baso (test code = 437) 0 % # Neutros (test code = 5.93 See_Comment H [Aut omated message] 670) The system [employer] generated this result transmitted ref erence range: 1.78 - 5 .38 K/L. The refe rence range was not u sed to interpret this result as normal/abnor mal. # Lymphs (test code = 0.89 See_Comment L [Auto mated message] 414) The system [employer] generated this result transmitted ref erence range: 1.32 - 3 .57 K/L. The refe rence range was not u sed to interpret this result as normal/abnor mal. # Monos (test code = 0.47 See_Comment [Autom ated message] 415) The system [employer] generated this result transmitted ref erence range: 0.30 - 0 .82 K/L. The refe rence range was not u sed to interpret this result as normal/abnor mal. # Eos (test code = 416) 0.00 See_Comment L [Au tomated message] The system [employer] generated this result transmitted ref erence range: 0.04 - 0 .54 K/L. The refe rence range was not u sed to interpret this result as normal/abnor mal. # Baso (test code = 417) 0.02 See_Comment [A utomated message] The system [employer] generated this result transmitted ref erence range: 0.01 - 0 .08 K/L. The refe rence range was not u sed to interpret this result as normal/abnor mal. Immature 1 % 0-1 Granulocytes-Relative (test code = 2801) Lab Interpretation (test Abnormal code = 68729-5) [facility] W/PLT COUNT & AUTO [id number] 05:03:38 Test Item Value Reference Range Interpretation Comments WHITE BLOOD CELL COUNT (BEAKER) 7.4 K/ L 3.5-10.5 (test code = 775) RED BLOOD CELL COUNT (BEAKER) 4.62 M/ L 4.63-6.08 L (test code = 761) HEMOGLOBIN (BEAKER) (test code = 14.7 GM/DL 13.7-17.5 410) HEMATOCRIT (BEAKER) (test code = 43.9 % 40.1-51.0 411) MEAN CORPUSCULAR VOLUME (BEAKER) 95.0 fL 79.0-92.2 H (test code = 753) MEAN CORPUSCULAR HEMOGLOBIN 31.8 pg 25.7-32.2 (BEAKER) (test code = 751) MEAN CORPUSCULAR HEMOGLOBIN CONC 33.5 GM/DL 32.3-36.5 (BEAKER) (test code = 752) RED CELL DISTRIBUTION WIDTH 12.1 % 11.6-14.4 (BEAKER) (test code = 412) PLATELET COUNT (BEAKER) (test 256 K/CU MM 150-450 code = 756) MEAN PLATELET VOLUME (BEAKER) 10.4 fL 9.4-12.4 (test code = 754) NUCLEATED RED BLOOD CELLS 0 /100 WBC 0-0 (BEAKER) (test code = 413) NEUTROPHILS RELATIVE PERCENT 80 % (BEAKER) (test code = 429) LYMPHOCYTES RELATIVE PERCENT 12 % (BEAKER) (test code = 430) MONOCYTES RELATIVE PERCENT 6 % (BEAKER) (test code = 431) EOSINOPHILS RELATIVE PERCENT 0 % (BEAKER) (test code = 432) BASOPHILS RELATIVE PERCENT 0 % (BEAKER) (test code = 437) NEUTROPHILS ABSOLUTE COUNT 5.93 K/ L 1.78-5.38 H (BEAKER) (test code = 670) LYMPHOCYTES ABSOLUTE COUNT 0.89 K/ L 1.32-3.57 L (BEAKER) (test code = 414) MONOCYTES ABSOLUTE COUNT (BEAKER) 0.47 K/ L 0.30-0.82 (test code = 415) EOSINOPHILS ABSOLUTE COUNT 0.00 K/ L 0.04-0.54 L (BEAKER) (test code = 416) BASOPHILS ABSOLUTE COUNT (BEAKER) 0.02 K/ L 0.01-0.08 (test code = 417) IMMATURE GRANULOCYTES-RELATIVE 1 % 0-1 PERCENT (BEAKER) (test code = 2801) [id number] 04:55:15 Test Item Value Reference Range Interpretation Comments D-Dimer, Quant (test 0.41 See_Comment [Autom ated code = 83691-1) message] The system which generated this result transmitted reference range : <0.50 MG/L FEU. The reference range was not used to interpr et this result as normal/abnormal . MURIEL (test code = MURIEL) Intended Use: The D-Dimer Assay can be used to aid in the diagnosis of Deep Vein Thrombosis (DVT) and Pulmonary Embolism Disease (PED).In patients with low pre-test probability, various studies concerning STA Liatest D-dimer test have reported that with a cutoff value of 0.50 MG/L FEU, the Negative Predictive Value (NPV) regarding the exclusion of thrombosis is within 95-100% range. Lab Interpretation Normal (test code = 58668-8) [facility] Hospital[facility]-[id number] 04:55:15 Test Item Value Reference Range Interpretation Comments D-DIMER QUANTITATIVE (BEAKER) 0.41 MG/L FEU <0.50 (test code = 671) Intended Use: The D-Dimer Assay can be used to aid in the diagnosis of Deep Vein Thrombosis (DVT) and Pulmonary Embolism Disease (PED).In patients with low pre- test probability, various studies concerning STA Liatest D-dimer test have reported that with a cutoff value of 0.50 MG/L FEU, the Negative Predictive Value (NPV) regarding the exclusion of thrombosis is within 95-100% range. Prothrombin time/[id number] 04:52:50 Test Item Value Reference Interpretation Comments Range Protime (test code = 13.3 See_Comment [Autom ated 0312-2) message] The system which generated this result transmitted reference range : 11.9 - 14.2 seconds. The reference range was not used to interpret this result as normal/abnormal . INR (test code = 1.03 See_Comment [Automated 5931-6) message] The system which generated this result transmitted reference range : <=5.90. The reference range was not used to interpret this result as normal/abnormal . MURIEL (test code = RECOMMENDED MURIEL) COUMADIN/WARFARIN INR THERAPY RANGESSTANDARD DOSE: 2.0 - 3.0 Includes: PROPHYLAXIS for venous thrombosis, systemic embolization; TREATMENT for venous thrombosis and/or pulmonary embolus.HIGH RISK: Target INR is 2.5-3.5 for patients with mechanical heart valves. Lab Interpretation Normal (test code = 31396-1) [facility] HospitalPROTHROMBIN TIME/[id number] 04:52:50 Test Item Value Reference Range Interpretation Comments PROTIME (BEAKER) 13.3 seconds 11.9-14.2 (test code = 759) INR (BEAKER) (test 1.03 See_Comment [Automat ed message] code = 370) The system [employer] generated this result transmitted ref erence range: <=5.90. The reference range was not used to int erpret this result as normal/abnormal . RECOMMENDED COUMADIN/WARFARIN INR THERAPY RANGESSTANDARD DOSE: 2.0 - 3.0 Includes: PROPHYLAXIS for venous thrombosis, systemic embolization; TREATMENT for venous thrombosis and/or pulmonary embolus.HIGH RISK: Target INR is 2.5-3.5 for patients with mechanical heart valves.POCT-GLUCOSE [id number] 19:55:32 Test Item Value Reference Range Interpretation Comments POC-GLUCOSE METER 391 mg/dL 70-110 H : Notified RN/MD: (BEAKER) (test code = TESTED AT [place] [address] 1538) [facility], [address]: Central Supply Technician Supervisor/Techni israel ID = [id number] for JUAN CARLOS [facility]U POCT-GLUCOSE [id number] 16:53:52 Test Item Value Reference Range Interpretation Comments POC-GLUCOSE METER 301 mg/dL 70-110 H : TESTED A T [facility] (BEAKER) (test code = [facility], 1538) [address]: Central Supply Technician Supervisor/Techni israel ID = [id number] for Jessica abbott Halimatony URINALYSIS W/ REFLEX URINE [id number] 16:24:00 Test Item Value Reference Range Interpretation Comments COLOR (BEAKER) (test code = 470) Yellow CLARITY (BEAKER) (test code = 469) Clear SPECIFIC GRAVITY UA (BEAKER) (test 1.025 1.001-1.035 code = 468) PH UA (BEAKER) (test code = 467) 5.5 5.0-8.0 PROTEIN UA (BEAKER) (test code = 20 mg/dL Negative A 464) GLUCOSE UA (BEAKER) (test code = Negative Negative 365) KETONES UA (BEAKER) (test code = Negative Negative 371) BILIRUBIN UA (BEAKER) (test code = Negative Negative 462) BLOOD UA (BEAKER) (test code = Small Negative A 461) NITRITE UA (BEAKER) (test code = Negative Negative 465) LEUKOCYTE ESTERASE UA (BEAKER) Negative Negative (test code = 466) UROBILINOGEN UA (BEAKER) (test 4.0 mg/dL 0.2-1.0 H code = 463) RBC UA (BEAKER) (test code = 519) 10 /HPF WBC UA (BEAKER) (test code = 520) 3 /HPF MUCUS (BEAKER) (test code = 1574) Occasional SQUAMOUS EPITHELIAL (BEAKER) (test < /HPF code = 516) HYALINE CASTS (BEAKER) (test code 5 /LPF = 514) CASTS (BEAKER) (test code = 1579) 1 /LPF SOURCE(BEAKER) (test code = 2795) POCT-GLUCOSE [id number] 12:36:00 Test Item Value Reference Range Interpretation Comments POC-GLUCOSE METER 151 mg/dL 70-110 H TESTED AT [facility] (BEAKER) (test code = SURAJ Colon [facility] 1538) [address] POCT-GLUCOSE [id number] 08:14:00 Test Item Value Reference Range Interpretation Comments POC-GLUCOSE METER 159 mg/dL 70-110 H [facility] [place] [address] [facility] (test code = SURAJ Colon [facility] 1538) [address] RAD, CHEST, 1 VIEW, NON [id number] 08:10:00Reason for exam:->eval pulmonary congestionShould this be performed at the bedside?->YesFINAL REPORT RAD, CHEST, 1 VIEW, NON DEPT INDICATION: eval pulmonary congestionCOMPARISON: Prior day's exam FINDINGS: Portable frontal view of the chest. IMPRESSION: Support Lines: None. Lungs and pleura: Improved aeration with decreasing congestive changes bilaterally. No effusion. No pneumothorax.Heart and mediastinum: Persistent enlargement of the cardiac silhouette. Stable surgical changes.Additional findings: None. Signed: JR Alamo Robert MDReport Verified Date/Time: 07/11/2018 08:10:57 Reading Location: [facility] C0[facility] Neuro Reading Room [id number] 05:02:00 Test Item Value Reference Range Interpretation Comments MAGNESIUM (BEAKER) (test code = 2.1 mg/dL 1.6-2.6 627) BASIC METABOLIC [id number] 05:02:00 Test Item Value Reference Range Interpretation [...] 150-450 code = 756) MEAN PLATELET VOLUME ([facility]) 10.0 fL 9.4-12.4 (test code = 754) NUCLEATED RED BLOOD CELLS 0 /100 WBC 0-0 ([facility]) (test code = 413) POCT-GLUCOSE [id number] 21:35:00 Test Item Value Reference Range Interpretation Comments POC-GLUCOSE METER 172 mg/dL 70-110 H TESTED AT [place] [address] ([facility]) (test code = SUR[place] 1538) [address] POCT-GLUCOSE [id number] 17:50:00 Test Item Value Reference Range Interpretation Comments POC-GLUCOSE METER 142 mg/dL 70-110 H TESTED AT [place] [address] ([facility]) (test code = SURAJ [place] 1538) [address] B-TYPE NATRIURETIC FACTOR (BNP)2018-07-10 14:23:00 Test Item Value Reference Range Interpretation Comments B-TYPE NATRIURETIC PEPTIDE ([facility]) 263 pg/mL 0-100 H (test code = 700) POCT-GLUCOSE [id number] 12:30:00 Test Item Value Reference Range Interpretation Comments POC-GLUCOSE METER 162 mg/dL 70-110 H TESTED AT [place] [address] ([facility]) (test code = [place] 1538) [address] POCT-GLUCOSE [id number] 08:28:00 Test Item Value Reference Range Interpretation Comments POC-GLUCOSE METER 248 mg/dL 70-110 H TESTED AT [place] [address] ([facility]) (test code = [place] 1538) [address] RAD, CHEST, 1 VIEW, NON [id number] 07:32:00Reason for exam:->eval pulmonary congestionShould this be performed at the bedside?->YesFINAL REPORT RAD, CHEST, 1 VIEW, NON DEPT INDICATION: eval pulmonary congestionCOMPARISON: Prior day's exam FINDINGS: Portable frontal view of the chest. IMPRESSION: Support Lines: Right IJ central venous catheter has been. Lungs and pleura: Basilar subsegmental atelectasis most prominent on the left. No new significant consolidation. No pneumothorax.Heart and mediastinum: Stable contours. Stable surgical changes.Additional findings: None. Signed: JR Alamo Robert MDReport Verified Date/Time: 07/10/2018 07:32:04 Reading Location: [facility] C013V Neuro Reading Room [id number] 06:04:00 Test Item Value Reference Range Interpretation Comments MAGNESIUM (BEAKER) (test code = 2.3 mg/dL 1.6-2.6 627) BASIC METABOLIC [id number] 06:04:00 Test Item Value Reference Range Interpretation [...] MEAN CORPUSCULAR HEMOGLOBIN 33.1 pg 25.7-32.2 H ([facility]) (test code = 751) MEAN CORPUSCULAR HEMOGLOBIN CONC 32.5 GM/DL 32.3-36.5 (AKER) (test code = 752) RED CELL DISTRIBUTION WIDTH 12.4 % 11.6-14.4 (AKER) (test code = 412) PLATELET COUNT ([facility]) (test 173 K/CU MM 150-450 code = 756) MEAN PLATELET VOLUME (AKER) 10.7 fL 9.4-12.4 (test code = 754) NUCLEATED RED BLOOD CELLS 0 /100 WBC 0-0 (AKER) (test code = 413) POCT-GLUCOSE [id number] 21:23:00 Test Item Value Reference Range Interpretation Comments POC-GLUCOSE METER 166 mg/dL 70-110 H TESTED AT [facility] 6720 ([facility]) (test code = [place] 1538) [address] [id number] 12:50:00 Test Item Value Reference Range Interpretation Comments POTASSIUM (BEAKER) (test code = 4.0 meq/L 3.5-5.1 379) Check Serum Magnesium level 2 hours after IV magnesium replacement.Check Serum Phosphorus level 4 hours after IV phosphorus replacement or 8 hours after PO replacement completed.Every 8 hours PRN for Creatinine greater than or equal to 2 mg/dL.[id number] 12:50:00 Test Item Value Reference Range Interpretation Comments MAGNESIUM (BEAKER) (test code = 2.3 mg/dL 1.6-2.6 627) Check Serum Magnesium level 2 hours after IV magnesium replacement.Check Serum Phosphorus level 4 hours after IV phosphorus replacement or 8 hours after PO replacement completed.Every 8 hours PRN for Creatinine greater than or equal to 2 mg/dL.[id number] 12:50:00 Test Item Value Reference Range Interpretation Comments PHOSPHORUS (BEAKER) (test code = 1.6 mg/dL 2.3-4.7 L 604) Check Serum Magnesium level 2 hours after IV magnesium replacement.Check Serum Phosphorus level 4 hours after IV phosphorus replacement or 8 hours after PO replacement completed.Every 8 hours PRN for Creatinine greater than or equal to 2 mg/dL.POCT-GLUCOSE [id number] 12:19:00 Test Item Value Reference Range Interpretation Comments POC-GLUCOSE METER 255 mg/dL 70-110 H TEST[facility] (test code = SURAJ [place] 1538) [address] RAD, CHEST, 1 VIEW, NON [id number] 09:46:00while patient is intubated or has chest tubes.Reason for exam:->s/p CABGShould this be performed at the bedside?->YesFINAL REPORT CHEST ONE VIEW HISTORY: Status post coronary artery bypass surgeryCOMPARISON: 07/08/2018 FINDINGS: Single portable AP examination of the chest was performed. Intervaldecrease in the left lower lobe atelectasis. Presented visualize mild pulmonary edema has also resolv ed. Minimal left pleural effusion. Right lung clear. No pneumothorax. The cardiac shadow is enlarged, unchanged. Right central venous catheter tip is in the SVC region. Signed: Aga Zafareport Verified Date/Time: 07/09/2018 09:46:04 Reading Location: [address] Transitional Reading Room POCT-GLUCOSE [id number] 08:01:00 Test Item Value Reference Range Interpretation Comments POC-GLUCOSE METER 173 mg/dL 70-110 H TESTED AT [facility] (test code = SURAJ [place] [facility] 1538) [address] [id number] 04:58:00 Test Item Value Reference Range Interpretation Comments PHOSPHORUS (BEAKER) (test code = 2.3 mg/dL 2.3-4.7 604) Check Serum Phosphorus level 4 hours after IV phosphorus replacement or 8 hours after PO replacementcompleted.[id number] 04:58:00 Test Item Value Reference Range Interpretation Comments MAGNESIUM (BEAKER) (test code = 2.3 mg/dL 1.6-2.6 627) Check Serum Phosphorus level 4 hours after IV phosphorus replacement or 8 hours after PO replacementcompleted.BASIC METABOLIC [id number] 04:58:00 Test Item Value Reference Range Interpretation [...] WBC 0-0 (BEAKER) (test code = 413) [id number] 00:40:00 Test Item Value Reference Range Interpretation Comments POTASSIUM (BEAKER) (test code = 3.5 meq/L 3.5-5.1 379) Every 8 hours PRN for Creatinine greater than or equal to 2 mg/dL.POCT-GLUCOSE [id number] 20:50:00 Test Item Value Reference Range Interpretation Comments POC-GLUCOSE METER 171 mg/dL 70-110 H TESTED AT [place] [address] ([facility]) (test code = [facility] 1538) [address] [id number] 18:19:00 Test Item Value Reference Range Interpretation Comments POTASSIUM (BEAKER) (test code = 3.7 meq/L 3.5-5.1 379) Check Serum Magnesium level 2 hours after IV magnesium replacement.Check Serum Phosphorus level 4 hours after IV phosphorus replacement or 8 hours after PO replacement completed.8 hours after PO replacement [id number] 18:19:00 Test Item Value Reference Range Interpretation Comments MAGNESIUM (BEAKER) (test code = 2.1 mg/dL 1.6-2.6 627) Check Serum Magnesium level 2 hours after IV magnesium replacement.Check Serum Phosphorus level 4 hours after IV phosphorus replacement or 8 hours after PO replacement completed.8 hours after PO replacement [id number] 18:19:00 Test Item Value Reference Range Interpretation [...] 4 hours after IV Calcium replacement. POCT-GLUCOSE [id number] 17:17:00 Test Item Value Reference Range Interpretation Comments POC-GLUCOSE METER 195 mg/dL 70-110 H TESTED AT [place] [address] ([facility]) (test code = [facility] 1538) [address] POCT-GLUCOSE [id number] 12:17:00 Test Item Value Reference Range Interpretation Comments POC-GLUCOSE METER 231 mg/dL 70-110 H TESTED AT [facility] 67[address] (BEAKER) (test code = SUR[place] 1538) [address] RAD, CHEST, 1 VIEW, NON [id number] 09:19:00Reason for exam:- >hypoxiaShould this be performed at the bedside?->YesFINAL REPORT HISTORY : hypoxia. Comparison: 07/07/2018 Comment: Single portable v iew of the chest was obtained. The cardiac [...] MDReport Verified Date/Time: 07/08/2018 09:19:57 Reading Location: [address] Transitional Reading Room [id number] 08:56:00 Test Item Value Reference Range Interpretation Comments PHOSPHORUS (BEAKER) (test code = 1.7 mg/dL 2.3-4.7 L 604) [id number] 08:56:00 Test Item Value Reference Range Interpretation Comments MAGNESIUM (BEAKER) (test code = 2.1 mg/dL 1.6-2.6 627) BASIC METABOLIC [id number] 08:56:00 Test Item Value Reference Range Interpretation [...] APPLICABLE FOR DIALYSIS PATIEN TS. BLOOD GAS, [id number] 08:49:00 Test Item Value Reference Range Interpretation [...] 60.0 % CBC W/PLT COUNT & AUTO [id number] 06:39:00 Test Item Value Reference Range Interpretation [...] PERCENT (BEAKER) (test code = 2801) POCT-GLUCOSE [id number] 05:59:00 Test Item Value Reference Range Interpretation Comments POC-GLUCOSE METER 175 mg/dL 70-110 H TESTED AT [facility] 67[address] (BEAKER) (test code = SUR[place] 1538) [address] BLOOD GAS, [id number] 21:35:00 Test Item Value Reference Range Interpretation [...] (test code = 1819) 60.0 % POCT-GLUCOSE [id number] 21:31:00 Test Item Value Reference Range Interpretation Comments POC-GLUCOSE METER 194 mg/dL 70-110 H TESTED AT [facility] 6720 (BEAKER) (test code = [place] 1538) [address] OXYGEN SATURATION, [id number] 19:33:00 Test Item Value Reference Range Interpretation Comments O2 SATURATION (MEASURED) (BEAKER) 68.6 % (test code = 1455) For occult hypoperfusionLACTIC ACID, VENOUS, WHOLE [id number] 16:49:00 Test Item Value Reference Range Interpretation Comments LACTATE BLOOD VENOUS (2) (BEAKER) 1.0 mmol/L 0.5-2.2 (test code = 2872) BLOOD GAS, [id number] 16:43:00 Test Item Value Reference Range Interpretation [...] 60.0 % CBC W/PLT COUNT & AUTO [id number] 16:37:00 Test Item Value Reference Range Interpretation [...] 3438) Received comment: User comments: Slide comments:POCT-GLUCOSE [id number] 16:30:00 Test Item Value Reference Range Interpretation Comments POC-GLUCOSE METER 239 mg/dL 70-110 H TESTED AT [facility] (BEAKER) (test code = SURAJ [place] 1538) [address] BLOOD GAS, [id number] 13:33:00 Test Item Value Reference Range Interpretation [...] (BEAKER) (test code = 1819) 32.0 % [id number] 13:09:00 Test Item Value Reference Range Interpretation Comments MAGNESIUM (BEAKER) 2.2 mg/dL 1.6-2.6 Specimen slightly (test code = 627) hemolyzed BASIC METABOLIC [id number] 13:09:00 Test Item Value Reference Range Interpretation [...] NOT APPLICABLE FOR DIALYSIS PATIEN TS. CALCIUM, [id number] 12:44:00 Test Item Value Reference Range Interpretation Comments CALCIUM IONIZED (BEAKER) (test 1.14 mmol/L 1.12-1.27 code = 698) PH, BLOOD (BEAKER) (test code = 7.34 1810) [id number] 11:12:00 Test Item Value Reference Range Interpretation Comments MAGNESIUM (BEAKER) (test code = 2.1 mg/dL 1.6-2.6 627) Check Serum Magnesium level 2 hours after IV magnesium replacement.GLUCOSE-STAT [id number] 11:00:00 Test Item Value Reference Range Interpretation Comments GLUCOSE RANDOM (BEAKER) (test code 194 mg/dL 70-110 H = 652) HGB/HCT (H&H) - STAT [id number] 11:00:00 Test Item Value Reference Range Interpretation Comments HEMOGLOBIN (BEAKER) (test code = 12.5 g/dL 13.0-16.8 L 410) HEMATOCRIT (BEAKER) (test code = 37.0 % 40.0-50.0 L 411) SODIUM NA-STAT [id number] 10:58:00 Test Item Value Reference Range Interpretation Comments SODIUM (BEAKER) (test code = 381) 138 meq/L 135-148 POTASSIUM-STAT [id number] 10:58:00 Test Item Value Reference Range Interpretation Comments POTASSIUM (BEAKER) (test code = 4.2 meq/L 3.6-5.5 379) CBC W/PLT COUNT & AUTO [id number] 09:53:00 Test Item Value Reference Range Interpretation [...] 0-1 PERCENT (BEAKER) (test code = 2801) [id number] 05:10:00 Test Item Value Reference Range Interpretation Comments MAGNESIUM (BEAKER) 2.3 mg/dL 1.6-2.6 Specimen slightly (test code = 627) hemolyzed [id number] 05:10:00 Test Item Value Reference Range Interpretation Comments PHOSPHORUS (BEAKER) 3.9 mg/dL 2.3-4.7 Specimen slightly (test code = 604) hemolyzed BASIC METABOLIC [id number] 05:10:00 Test Item Value Reference Range Interpretation [...] PATIEN TS. RAD, CHEST, 1 VIEW, NON [id number] 04:15:00while patient is intubated or has chest tubes.Reason for exam:->s/p CABGShould this be performed at the bedside?->YesFINAL REPORT EXAMINATION: AP PORTABLE CHEST RADIOGRAPH CLINICAL INDICATION: Chest tubes IMPRESSION: Compared with 07/06/2018 The endotracheal and nasogastric tubes have been removedin the interval. The support tube and catheter positions are otherwise unchanged. The heart is enlarg ed as before. Mediastinal contours are grossly unchanged. Opacities are again noted in the perihilarregions along the heart borders. A component of atelectasis and/or scarring is favored. No definite evidence of new lung consolidation or significant pneumothorax. Signed: Floridalma Arechigaort Verified Date/Time: 07/07/2018 04:15:31 Reading Location: [address] Reading Room POCT-GLUCOSE [id number] 22:22:00 Test Item Value Reference Range Interpretation Comments POC-GLUCOSE METER 208 mg/dL 70-110 H TESTED AT [facility] (BEAKER) (test code = SURAJ [place] 1538) [address] BLOOD GAS, [id number] 20:12:00 Test Item Value Reference Range Interpretation [...] 40.0 % CBC W/PLT COUNT & AUTO [id number] 19:32:00 Test Item Value Reference Range Interpretation [...] (BEAKER) (test code Normal = 486) POCT-GLUCOSE [id number] 18:56:00 Test Item Value Reference Range Interpretation Comments POC-GLUCOSE METER 206 mg/dL 70-110 H TESTED AT [facility] (BEAKER) (test code = SURAJ [place] 1538) [address] BASIC METABOLIC [id number] 17:20:00 Test Item Value Reference Range Interpretation [...] DIALYSIS PATIEN TS. LACTIC ACID, ARTERIAL, WHOLE [id number] 16:50:00 Test Item Value Reference Range Interpretation Comments LACTATE BLOOD ARTERIAL (2) 1.2 mmol/L 0.5-2.2 (BEAKER) (test code = 2874) [id number] 16:45:00 Test Item Value Reference Range Interpretation Comments MAGNESIUM (BEAKER) 2.7 mg/dL 1.6-2.6 H Specimen slightly (test code = 627) hemolyzed [id number] 16:45:00 Test Item Value Reference Range Interpretation Comments PHOSPHORUS (BEAKER) 3.6 mg/dL 2.3-4.7 Specimen slightly (test code = 604) hemolyzed [id number] 16:45:00 Test Item Value Reference Range Interpretation Comments POTASSIUM (BEAKER) 5.1 meq/L 3.5-5.1 Specimen slightly (test code = 379) hemolyzed [id number] 16:45:00 Test Item Value Reference Range Interpretation Comments SODIUM (BEAKER) (test code = 381) 137 meq/L 136-145 [id number] 16:45:00 Test Item Value Reference Range Interpretation Comments GLUCOSE RANDOM (BEAKER) (test code 193 mg/dL 70-105 H = 652) [id number] 16:39:00 Test Item Value Reference Range Interpretation Comments PROTIME (BEAKER) (test code = 15.4 seconds 11.7-14.7 H 759) INR (BEAKER) (test code = 370) 1.2 <=5.9 PARTIAL THROMBOPLASTIN TIME 28.7 seconds 22.5-36.0 (BEAKER) (test code = 760) RECOMMENDED COUMADIN/WARFARIN INR THERAPY RANGESSTANDARD DOSE: 2.0 - 3.0 Includes: PROPHYLAXIS for venous thrombosis, systemic embolization; TREATMENT for venous thrombosis and/or pulmonary embolus.HIGH RISK: Target INR is 2.5-3.5 for patients with mechanical heart valves.[id number] 16:39:00 Test Item Value Reference Range Interpretation Comments FIBRINOGEN LEVEL (BEAKER) (test 282 mg/dl 225-434 code = 658) PROTHROMBIN [id number] 16:38:00 Test Item Value Reference Range Interpretation Comments PROTIME (BEAKER) (test code = 15.4 seconds 11.7-14.7 H 759) INR (BEAKER) (test code = 370) 1.2 <=5.9 RECOMMENDED COUMADIN/WARFARIN INR THERAPY RANGESSTANDARD DOSE: 2.0 - 3.0 Includes: PROPHYLAXIS for venous thrombosis, systemic embolization; TREATMENT for venous thrombosis and/or pulmonary embolus.HIGH RISK: Target INR is 2.5-3.5 for patients with mechanical heart valves.RAD, CHEST, 1 VIEW, NON [id number] 16:16:00Reason for exam:->s/p CABGShould this be performed at the bedside?->YesFINAL REPORT TECHNIQUE: Frontal chest radiograph dated 07/06/2018. CLINICAL HISTORY: S/P CABG COMPARISON STUDY: Chest radiograph dated 07/05/2018 Impression:Endotracheal tube is 4 cmabove the annette. Right-sided internal jugular vascular line is seen with the tip projected over thesuperior vena cava/right atrial junction. Enteric tube is seen with the tip in the region of the gastric body. Left-sided chest tube and mediastinal drain are in place. There is left retrocardiac atelectasis. No pneumothorax. Cardiomediastinal silhouette is stable in size. No pulmonary edema. Sternotomy wires are intact and well aligned. Signed: Mir Lopezeport Verified Date/Time: 07/06/2018 16:16:23 Reading Location: [facility] Radiology Reading Room EN SATURATION, [id number] 16:00:00 Test Item Value Reference Range Interpretation Comments O2 SATURATION (MEASURED) (BEAKER) 64.6 % (test code = 1455) BLOOD GAS, [id number] 15:59:00 Test Item Value Reference Range Interpretation [...] (BEAKER) (test code = 1819) 50.0 % [id number] 15:14:00 Test Item Value Reference Range Interpretation Comments ACTIVATED CLOTTING TIME 103 sec TEST ED AT [place] [address] ([facility]) (test code = ANNYXAVIER Colon [place] [address]) [address] [id number] 15:14:00 Test Item Value Reference Range Interpretation Comments ACTIVATED CLOTTING TIME 423 sec TEST ED AT [place] [address] ([facility]) (test code = SURAJ [place] [address]) [address] [id number] 15:14:00 Test Item Value Reference Range Interpretation Comments ACTIVATED CLOTTING TIME 384 sec TEST ED AT [place] [address] ([facility]) (test code = SURAJ [place] [address]) [address] THROMBOELASTOGRAPH (TEG)2018-07-06 15:08:00 Test Item Value Reference [...] 0.0 % 0.0-5.0 code = 1414) PLATELET [id number] 14:31:00 Test Item Value Reference Range Interpretation Comments PLATELET COUNT (BEAKER) (test 125 K/CU MM 150-450 L code = 756) [id number] 14:18:00 Test Item Value Reference Range Interpretation Comments FIBRINOGEN LEVEL (BEAKER) (test 406 mg/dl 225-434 code = 658) [id number] 14:18:00 Test Item Value Reference Range Interpretation Comments PARTIAL THROMBOPLASTIN TIME 24.4 seconds 22.5-36.0 (BEAKER) (test code = 760) PROTHROMBIN [id number] 14:17:00 Test Item Value Reference Range Interpretation Comments PROTIME (BEAKER) (test code = 14.1 seconds 11.7-14.7 759) INR (BEAKER) (test code = 370) 1.1 <=5.9 RECOMMENDED COUMADIN/WARFARIN INR THERAPY RANGESSTANDARD DOSE: 2.0 - 3.0 Includes: PROPHYLAXIS for venous thrombosis, systemic embolization; TREATMENT for venous thrombosis and/or pulmonary embolus.HIGH RISK: Target INR is 2.5-3.5 for patients with mechanical heart valves.GLUCOSE-STAT [id number] 14:03:00 Test Item Value Reference Range Interpretation Comments GLUCOSE RANDOM (BEAKER) (test code 165 mg/dL 70-110 H = 652) SODIUM NA-STAT [id number] 14:03:00 Test Item Value Reference Range Interpretation Comments SODIUM (BEAKER) (test code = 381) 133 meq/L 135-148 L HGB/HCT (H&H) - STAT [id number] 14:03:00 Test Item Value Reference Range Interpretation Comments HEMOGLOBIN (BEAKER) (test code = 12.5 g/dL 13.0-16.8 L 410) HEMATOCRIT (BEAKER) (test code = 37.0 % 40.0-50.0 L 411) POTASSIUM-STAT [id number] 14:02:00 Test Item Value Reference Range Interpretation Comments POTASSIUM (BEAKER) (test code = 4.4 meq/L 3.6-5.5 379) BLOOD GAS, [id number] 14:02:00 Test Item Value Reference Range Interpretation [...] code = 1819) 100.0 % BLOOD GAS, [id number] 13:22:00 Test Item Value Reference Range Interpretation Comments PH VENOUS (BEAKER) 7.34 7.32-7.42 This is a corrected (test code = 701) result. Pr evious result was 7.36 on 07/06/2018 at 13 13 ORDER DESK CALLER PCO2 VENOUS (BEAKER) 46 mmHg 41-51 This is a corrected (test code = 755) result. Pr evious result was 44 m mHg on 07/06/2018 at 1313 ORDER DESK CALLER PO2 VENOUS (BEAKER) 46 mmHg 25-40 H This is a corrected (test code = 702) result. Pr evious result was 282 mmHg on 07/06/2018 at 1313 ORDER DESK CALLER O2 SATURATION VENOUS 93.4 % 40.0-70.0 H This is a corrected (BEAKER) (test code = result . Previous 703) result was 99.6 % on 07/06/2018 at 13 13 ORDER DESK CALLER HCO3 VENOUS (BEAKER) 27 mmol/L 21-29 (test code = 705) BASE EXCESS VENOUS -1.8 mmol/L -2.0-3.0 (BEAKER) (test code = 704) PATIENT TEMPERATURE 28.2 C (BEAKER) (test code = 1818) FIO2 (BEAKER) (test 65.0 % code = 1819) BLOOD GAS, [id number] 13:15:00 Test Item Value Reference Range Interpretation [...] code = 1819) 65.0 % SODIUM NA-STAT [id number] 13:15:00 Test Item Value Reference Range Interpretation Comments SODIUM (BEAKER) (test code = 381) 132 meq/L 135-148 L GLUCOSE-STAT [id number] 13:15:00 Test Item Value Reference Range Interpretation Comments GLUCOSE RANDOM (BEAKER) (test code 183 mg/dL 70-110 H = 652) HGB/HCT (H&H) - STAT [id number] 13:15:00 Test Item Value Reference Range Interpretation Comments HEMOGLOBIN (BEAKER) (test code = 11.4 g/dL 13.0-16.8 L 410) HEMATOCRIT (BEAKER) (test code = 34.0 % 40.0-50.0 L 411) POTASSIUM-STAT [id number] 13:14:00 Test Item Value Reference Range Interpretation Comments POTASSIUM (BEAKER) (test code = 3.9 meq/L 3.6-5.5 379) SODIUM NA-STAT [id number] 13:07:00 Test Item Value Reference Range Interpretation Comments SODIUM (BEAKER) (test code = 381) 138 meq/L 135-148 POTASSIUM-STAT [id number] 13:07:00 Test Item Value Reference Range Interpretation Comments POTASSIUM (BEAKER) (test code = 4.1 meq/L 3.6-5.5 379) HGB/HCT (H&H) - STAT [id number] 13:07:00 Test Item Value Reference Range Interpretation Comments HEMOGLOBIN (BEAKER) (test code = 14.7 g/dL 13.0-16.8 410) HEMATOCRIT (BEAKER) (test code = 43.0 % 40.0-50.0 411) BLOOD GAS, [id number] 13:07:00 Test Item Value Reference Range Interpretation [...] (test code = 1819) 100.0 % GLUCOSE-STAT [id number] 13:07:00 Test Item Value Reference Range Interpretation Comments GLUCOSE RANDOM (BEAKER) (test code 157 mg/dL 70-110 H = 652) CALCIUM, [id number] 13:06:00 Test Item Value Reference Range Interpretation Comments CALCIUM IONIZED (BEAKER) (test 1.13 mmol/L 1.12-1.27 code = 698) [facility] (test code = 7.23 1810) [id number] 12:49:00 Test Item Value Reference Range Interpretation Comments ACTIVATED CLOTTING TIME 472 sec TEST ED AT [place] [address] ([facility]) (test code = SURAJ Colon [place] [address]) [address] POCT-GLUCOSE [id number] 08:01:00 Test Item Value Reference Range Interpretation Comments POC-GLUCOSE METER 201 mg/dL 70-110 H TESTED AT [place] [address] ([facility]) (test code = SURAJ Colon [facility] 1538) [address] [id number] 06:43:00 Test Item Value Reference Range Interpretation Comments PARTIAL THROMBOPLASTIN TIME 109.3 seconds 22.5-36.0 H ([facility]) (test code = 760) CBC W/PLT COUNT & AUTO [id number] 06:24:00 Test Item Value Reference Range Interpretation [...] 0-1 PERCENT (BEAKER) (test code = 2801) [id number] 01:14:00 Test Item Value Reference Range Interpretation Comments PARTIAL THROMBOPLASTIN TIME 90.5 seconds 22.5-36.0 H (BEAKER) (test code = 760) 6 hours after starting heparin infusion and as indicated per sliding scale PROTHROMBIN [id number] 01:12:00 Test Item Value Reference Range Interpretation Comments PROTIME (BEAKER) (test code = 14.2 seconds 11.7-14.7 759) INR (BEAKER) (test code = 370) 1.1 <=5.9 RECOMMENDED COUMADIN/WARFARIN INR THERAPY RANGESSTANDARD DOSE: 2.0 - 3.0 Includes: PROPHYLAXIS for venous thrombosis, systemic embolization; TREATMENT for venous thrombosis and/or pulmonary embolus.HIGH RISK: Target INR is 2.5-3.5 for patients with mechanical heart valves.6 hours after starting heparin infusion and as indicated per sliding [id number] 01:02:00 Test Item Value Reference Range Interpretation Comments MAGNESIUM (BEAKER) 2.9 mg/dL 1.6-2.6 H Specimen slightly (test code = 627) hemolyzed COMPREHENSIVE METABOLIC [id number] 01:02:00 Test Item Value Reference Range Interpretation [...] Specimen markedly lipemicCBC W/PLT COUNT & AUTO [id number] 00:44:00 Test Item Value Reference Range Interpretation [...] PERCENT (BEAKER) (test code = 2801) POCT-GLUCOSE [id number] 21:33:00 Test Item Value Reference Range Interpretation Comments POC-GLUCOSE METER 286 mg/dL 70-110 H TESTED AT [facility] (AKER) (test code = SURAJ [place] 1538) [address] [id number] 19:12:00 Test Item Value Reference Range Interpretation Comments PARTIAL THROMBOPLASTIN TIME 64.6 seconds 22.5-36.0 H ([facility]) (test code = 760) POCT-GLUCOSE [id number] 18:10:00 Test Item Value Reference Range Interpretation Comments POC-GLUCOSE METER 165 mg/dL 70-110 H TESTED AT [place] [address] ([facility]) (test code = SURAJ [place] 1538) [address] POCT-GLUCOSE [id number] 12:50:00 Test Item Value Reference Range Interpretation Comments POC-GLUCOSE METER 152 mg/dL 70-110 H TESTED AT [place] [address] ([facility]) (test code = SURAJ [place] 1538) [address] HEMOGLOBIN [id number] 10:06:00 Test Item Value Reference Range Interpretation Comments HEMOGLOBIN A1C ([facility]) (test code = 7.0 % 4.3-6.1 H 368) [id number] 09:01:00 Test Item Value Reference Range Interpretation Comments PARTIAL THROMBOPLASTIN TIME 68.3 seconds 22.5-36.0 H ([facility]) (test code = 760) PLATELET AGGREGATION: FUNCTION [id number] 08:44:00 Test Item Value Reference Range Interpretation Comments WEAK ADP 84 % 60-91 RESULT([facility]) (test code = 2135) PLATELET FUNCTION 60-100% indicates SCREEN INTERP ([facility]) normal platelet (test code = 2173) function [id number] Cindy Velasquez MD ([facility]) (test code = (electronic signature) 9112) PLATELET COUNT AGG 175 K/CU MM 150-450 ([facility]) (test code = 2656) Platelet Function Screen results may be falsely low with platelet counts<100,000/cu mm.POCT-GLUCOSE [id number] 08:23:00 Test Item Value Reference Range Interpretation Comments POC-GLUCOSE METER 185 mg/dL 70-110 H TESTED AT [place] [address] ([facility]) (test code = ANNYXAVIER Colon [place] 1538) [address] RAD, CHEST, 1 VIEW, NON [id number] 04:51:00Reason for exam:- >dyspneaShould this be performed at the bedside?->YesFINAL REPORT History: Dyspnea. Comparison: None. Findings: A single view of the chest is submitted. Cardiac silhouette is at the upper limits of normal for size but magnified by portable technique. There is central pulmonary vascular prominence and cephalization of the pulmonary vasculature, along with diffuse interstitial prominence, suggestive of pulmonary interstitial edema. There is no focal consolidation, pneumothorax, large pleural effusion or acute bony abnormality. Signed: Kaushik Jackson MDReport Verified Date/Time: 07/05/2018 04:51:23 Reading Location: [address] Reading Room B-TYPE NATRIURETIC FACTOR (BNP)2018-07-05 02:51:00 Test Item Value Reference Range Interpretation Comments B-TYPE NATRIURETIC PEPTIDE (BEAKER) 44 pg/mL 0-100 (test code = 700) [id number] 02:44:00 Test Item Value Reference Range Interpretation Comments MAGNESIUM (BEAKER) (test code = 2.3 mg/dL 1.6-2.6 627) BASIC METABOLIC [id number] 02:44:00 Test Item Value Reference Range Interpretation [...] I S NOT APPLICABLE FOR DIALYSIS PATIBARRERA LARA. [id number] 02:42:00 Test Item Value Reference Range Interpretation Comments PARTIAL THROMBOPLASTIN TIME 63.2 seconds 22.5-36.0 H (BEAKER) (test code = 760) CBC W/PLT COUNT & AUTO [id number] 02:26:00 Test Item Value Reference Range Interpretation [...] % 0-1 PERCENT (BEAKER) (test code = 2800) POCT-GLUCOSE [id number] 21:12:00 Test Item Value Reference Range Interpretation Comments POC-GLUCOSE METER 204 mg/dL 70-110 H TESTED AT [facility] (BEAKER) (test code = SRUAJ Colon [facility] 1538) [address] TSH/FREE T4 IF [id number] 19:43:00 Test Item Value Reference Range Interpretation Comments THYROID STIMULATING HORMONE 4.44 uIU/mL 0.35-4.94 (BEAKER) (test code = 772) LIPID [id number] 19:23:00 Test Item Value Reference Range Interpretation Comments TRIGLYCERIDES (BEAKER) (test code = 458 mg/dL 540) CHOLESTEROL (BEAKER) (test code = 285 mg/dL 631) HDL CHOLESTEROL (BEAKER) (test code 42 mg/dL = 976) Calculated LDL not valid if triglyceride >400 mg/dLTriglyceride Reference Range: Low Risk <150Borderline 150-199 High Risk 200-499 Very High Risk >=500Cholesterol Reference Range: Low Risk <200 Borderline 200-239 High Risk >240HDL Cholesterol Reference Range: Low Risk >=60 High Risk<40LDL Cholesterol Reference Range: Optimal <100 Near Optimal 100-129 Borderline 130-159 High 160-189 Very High >=190HEPATIC FUNCTION [id number] 19:23:00 Test Item Value Reference Range Interpretation [...] code = 72 U/L 6-55 H 347) [id number] 19:21:00 Test Item Value Reference Range Interpretation Comments PROTIME (BEAKER) (test code = 13.6 seconds 11.7-14.7 759) INR (BEAKER) (test code = 370) 1.0 <=5.9 PARTIAL THROMBOPLASTIN TIME 28.0 seconds 22.5-36.0 (BEAKER) (test code = 760) RECOMMENDED COUMADIN/WARFARIN INR THERAPY RANGESSTANDARD DOSE: 2.0 - 3.0 Includes: PROPHYLAXIS for venous thrombosis, systemic embolization; TREATMENT for venous thrombosis and/or pulmonary embolus.HIGH RISK: Target INR is 2.5-3.5 for patients with mechanical heart valves.CBC W/PLT COUNT & AUTO [id number] 19:05:00 Test Item Value Reference Range Interpretation [...] % 0-1 PERCENT (BEAKER) (test code = 2247)
[2022-04-16] MEDS ORDERED: METHYLPREDNISOLONE 125 MG INJ ONE (05:19)
[2022-04-16] MEDS ORDERED: ONDANSETRON 4 MG/2 ML VIAL ONE (05:19)
[2022-04-16] MEDS ORDERED: DIPHENHYDRAMINE 50 MG/ML VIAL ONE (05:19)
[2022-04-16 05:20] LABS: Absolute Lymphocytes (CBC) 1.6 K/uL (0.7-4.9); Lymphocytes % 10.9 % (15.3-44.8); MCV 94.4 fL (80-100); MPV 7.3 fL (7.6-11.3); RBC Red Blood Cell Count 5.83 M/uL (4.33-5.43)
[2022-04-16] MEDS ORDERED: NA CHLORIDE 0.9% 250 ML ONE (05:20)
[2022-04-16] MEDS ORDERED: FAMOTIDINE 20 MG/2 ML VIAL IV ONE (05:20)
[2022-04-16 05:34] LABS: Potassium 4.2 mmol/L (3.5-5.1)
--- NOTE | 2022-04-16 06:26 | ER ---
Nurse's Notes [facility] Name: Drake Vallejo Age: 57 yrs Sex: Male : 1965 Arrival Date: 04/16/2022 Time: 04:39 Bed 14 Private MD: Diagnosis: Rash and other nonspecific skin eruption Presentation: 04/16 04:50 Chief complaint: Patient states: Start throwing up at 2 am, noticed rash all over my ke1 body, CP starting also, I had CABG and 7 stents placed in the past. Coronavirus screen: Vaccine status: Patient reports receiving the 2nd dose of the covid vaccine. Ebola Screen: No symptoms or risks identified at this time. Initial Sepsis Screen: Does the patient meet any 2 criteria? No. Patient's initial sepsis screen is negative. Does the patient have a suspected source of infection? No. Patient's initial sepsis screen is negative. Risk Assessment: Do you want to hurt yourself or someone else? Patient reports no desire to harm self or others. Onset of symptoms was April 16, 2022 at 02:00. 04:50 Method Of Arrival: Ambulatory [facility] 04:50 Acuity: TREI 3 ke1 Triage Assessment: 04:53 General: Appears in no apparent distress. Behavior is appropriate for age. Pain: ke1 Complains of pain in chest Pain does not radiate. Pain currently is 3 out of 10 on a pain scale. at worst was 3 out of 10 on a pain scale. level that patient reports is acceptable is 3 out of 10 on a pain scale. GI: Reports vomiting, since 2 am. Historical: - Allergies: 04:53 hydrocet; ke1 04:53 NKDA; ke1 - PMHx: 04:53 Bipolar disorder; CAD; Depression; Diabetes - NIDDM; Hypertension; Myocardial ke1 infarction; - PSHx: 04:53 Coronary artery bypass graft; Heart Stents; r knee SX; ke1 - Immunization history:: Client reports receiving the 2nd dose of the Covid vaccine. - Social history:: Smoking status: Patient denies any tobacco usage or history of. - Family history:: not pertinent. - Hospitalizations: : No recent hospitalization is reported. Screenin:54 Abuse screen: Denies threats or abuse. Nutritional screening: No deficits noted. ke1 Tuberculosis screening: No symptoms or risk factors identified. Fall Risk None identified. Assessment: 04:55 GI: Abdomen is round non-distended. ke1 04:55 General: Appears uncomfortable, obese, Behavior is anxious. Pain: Complains of pain in ja4 chest Pain currently is 4 out of 10 on a pain scale. Quality of pain is described as heavy, Pain began 4 hours ago. Neuro: No deficits noted. Cardiovascular: No deficits noted. Chest pain began 4 hours prior to arrival episodes are intermittent. Derm: Skin is mottled, red, Skin temperature is warm Rash noted that is red, urticaria. Vital Signs: 04:50 BP 108 / 75; Pulse 93; Resp 20; Temp 98.1(O); Pulse Ox 98% on R/A; Weight 104.33 kg; ke1 Height 6 ft. (182.88 cm); Pain 2/10; 06:25 BP 101 / 63; Pulse 76; Resp 15; Pulse Ox 94% on R/A; ja4 06:30 BP 110 / 81; Pulse 78; Resp 19; Pulse Ox 96% on R/A; Pain 0/10; ke1 04:50 Body Mass Index 31.19 (104.33 kg, 182.88 cm) ke1 ED Course: 04:39 Patient arrived in ED. ja2 04:39 Christiano Red MD is Attending Physician. rn 04:52 Triage completed. ke1 04:55 Stevo Javier, RN is Primary Nurse. ja4 04:55 Bed in low position. Call light in reach. ke1 04:55 Arm band placed on left wrist. ke1 04:55 Inserted saline lock: 20 gauge in right hand, using aseptic technique. 4 06:44 No provider procedures requiring assistance completed. IV discontinued. ke1 Administered Medications: 05:18 Drug: NS 0.9% 250 ml Route: IV; Rate: 1 bolus; Site: right hand; 4 05:45 Follow up: IV Status: Completed infusion ke1 05:18 Drug: Zofran (Ondansetron) 4 mg Route: IVP; Site: right hand; 4 05:45 Follow up: Response: Marked relief of symptoms ke1 05:19 Drug: SOLU-Medrol (methylPrednisoLONE) 125 mg Route: IVP; Site: right hand; 4 06:00 Follow up: Response: No adverse reaction ke1 05:19 Drug: Benadryl (diphenhydrAMINE) 50 mg Route: IVP; Site: right hand; ja4 06:00 Follow up: Response: Marked relief of symptoms ke1 05:19 Drug: Pepcid (famotidine) 20 mg Route: IVP; Site: right hand; ja4 05:45 Follow up: Response: Marked relief of symptoms ke1 Medication: 06:44 VIS not applicable for this client. ke1 Outcome: 06:25 Discharge ordered by . rn 06:44 Discharged to home ambulatory. ke1 06:44 Condition: good 06:44 Discharge instructions given to patient. 06:46 Patient left the ED. ke1 Signatures: Christiano Red MD MD rn Alexander, Jessica ja2 Ebrottie, Kouassi, RN RN ke1 Stevo Javier RN RN [id number]
--- NOTE | 2022-04-16 06:26 | EDPHYS ---
Physician Documentation [facility] Name: Drake Vallejo Age: 57 yrs Sex: Male : 1965 Arrival Date: 04/16/2022 Time: 04:39 Bed 14 Private MD: ED Physician Christiano Red HPI: 04/16 05:11 This 57 yrs old Male presents to ER via Ambulatory with complaints of Rash, Vomiting, rn Chest Pain. 05:11 The patient's rash thought to be caused by an unknown cause. The rash is located on the rn body diffusely. The rash can be described as erythematous, urticarial. Onset: The symptoms/episode began/occurred this morning. Associated signs and symptoms: Pertinent positives: swelling of hands, nausea/vomiting. Severity of symptoms: At their worst the symptoms were mild in the emergency department the symptoms are unchanged. Treatment given at home: Benadryl. The patient has not experienced similar symptoms in the past. The patient has not recently seen a physician. Pt reports this AM began with rash, diffuse, began on right leg/buttocks, has since spread to involve most of torso/arms/legs/neck, + itchy, sensation of hands swelling, and vomited twice. Also reports non-bloody diarrhea. No fever. Reports on way here began to feel slight chest tightness, has known CAD, and that worried him even more. . Historical: - Allergies: 04:53 hydrocet; ke1 04:53 NKDA; ke1 - PMHx: 04:53 Bipolar disorder; CAD; Depression; Diabetes - NIDDM; Hypertension; Myocardial ke1 infarction; - PSHx: 04:53 Coronary artery bypass graft; Heart Stents; r knee SX; ke1 - Immunization history:: Client reports receiving the 2nd dose of the Covid vaccine. - Social history:: Smoking status: Patient denies any tobacco usage or history of. - Family history:: not pertinent. - Hospitalizations: : No recent hospitalization is reported. ROS: 05:11 Constitutional: Negative for fever, chills, and weight loss, Eyes: Negative for injury, rn pain, redness, and discharge, Neck: Negative for injury, pain, and swelling, Cardiovascular: Negative for palpitations, and edema, Respiratory: Negative for shortness of breath, cough, wheezing, and pleuritic chest pain, Abdomen/GI: Negative for abdominal pain, constipation MS/Extremity: Negative for injury and deformity, Skin: + rash and itching Neuro: Negative for headache, weakness, numbness, tingling, and seizure. Exam: 05:10 ECG was reviewed by the Attending Physician. rn 05:11 Constitutional: This is a well developed, well nourished patient who is awake, alert, rn and in no acute distress. Head/Face: Normocephalic, atraumatic. ENT: No intraoral rash Cardiovascular: Regular rate and rhythm. No pulse deficits. Respiratory: Speaking full sentences, unlabored. No increased work of breathing, no retractions or nasal flaring. Abdomen/GI: Soft, non-tender Skin: + diffuse urticarial rash, no umbilicated or pustular lesions. No desquamation. No circular lesions. No bullae. No rash on palms/soles. MS/ Extremity: Pulses equal, no cyanosis. Neuro: Awake and alert, GCS 15 Vital Signs: 04:50 BP 108 / 75; Pulse 93; Resp 20; Temp 98.1(O); Pulse Ox 98% on R/A; Weight 104.33 kg; ke1 Height 6 ft. (182.88 cm); Pain 2/10; 06:25 BP 101 / 63; Pulse 76; Resp 15; Pulse Ox 94% on R/A; ja4 06:30 BP 110 / 81; Pulse 78; Resp 19; Pulse Ox 96% on R/A; Pain 0/10; ke1 04:50 Body Mass Index 31.19 (104.33 kg, 182.88 cm) ke1 MDM: 04:39 Patient medically screened. rn 05:51 ED course: Rash almost completely gone after treatment for allergic reaction, feels rn much better. ECG without ischemia. Troponin pending, plan to dc home with steroids. Possible GI infection causing rash as well with vomiting and diarrhea or just allergic reaction/dermatitis. Will cover with abx given elevated WBC and left shift.. 06:23 Differential diagnosis: allergic reaction, dermatitis, allergic reaction, viral rn illness. Data reviewed: vital signs, nurses notes, lab test result(s), EKG, and as a result, I will discharge patient. Counseling: I had a detailed discussion with the patient and/or guardian regarding: the historical points, exam findings, and any diagnostic results supporting the discharge/admit diagnosis, lab results, the need for outpatient follow up, to return to the emergency department if symptoms worsen or persist or if there are any questions or concerns that arise at home. Response to treatment: the patient's symptoms have markedly improved after treatment, and as a result, I will discharge patient. Special discussion: I discussed with the patient/guardian in detail that at this point there is no indication for admission to the hospital. It is understood, however, that if the symptoms persist or worsen the patient needs to return immediately for re-evaluation. 04/16 05:03 Order name: CBC with Diff; Complete Time: 05:39 rn 04/16 05:03 Order name: Basic Metabolic Panel; Complete Time: 05:39 rn 04/16 05:10 Order name: Troponin High Sensitivity; Complete Time: 06:23 rn 04/16 05:03 Order name: IV Start; Complete Time: 06:46 rn 04/16 05:03 Order name: EKG; Complete Time: 05:04 rn 04/16 05:03 Order name: EKG - Nurse/Tech; Complete Time: 05:17 rn EC:10 Rate is 91 beats/min. Rhythm is regular. Left axis deviation noted. QRS is positive in rn lead I and negative in lead aVF. PA interval is normal. QRS interval is normal. QT interval is normal. No Q waves. T waves are Normal. No ST changes noted. Clinical impression: NSR w/ Non-specific ST/T Changes. Interpreted by me. Reviewed by me. Administered Medications: :18 Drug: NS 0.9% 250 ml Route: IV; Rate: 1 bolus; Site: right hand; 4 05:45 Follow up: IV Status: Completed infusion :18 Drug: Zofran (Ondansetron) 4 mg Route: IVP; Site: right hand; 4 05:45 Follow up: Response: Marked relief of symptoms ke09 02:19 Drug: SOLU-Medrol (methylPrednisoLONE) 125 mg Route: IVP; Site: right hand; 4 06:00 Follow up: Response: No adverse reaction :19 Drug: Benadryl (diphenhydrAMINE) 50 mg Route: IVP; Site: right hand; 4 06:00 Follow up: Response: Marked relief of symptoms ke1 05:19 Drug: Pepcid (famotidine) 20 mg Route: IVP; Site: right hand; [facility] 05:45 Follow up: Response: Marked relief of symptoms ke1 Disposition Summary: 04/16/22 06:25 Discharge Ordered Location: Home rn Problem: new rn Symptoms: have improved rn Condition: Stable rn Diagnosis - Rash and other nonspecific skin eruption rn Followup: rn - With: Private Physician - When: As needed - Reason: Recheck today's complaints, Re-evaluation by your physician Discharge Instructions: - Discharge Summary Sheet rn - Rash, Adult rn Forms: - Medication Reconciliation Form rn - Thank You Letter rn - 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
[2022-04-16 06:53] VITALS: TEMP 98.1
[2022-04-16 06:58] VITALS: BP 110/81; O2SAT 96
--- NOTE | 2022-04-17 08:57 | EKG ---
Test Date: 2022-04-16 Test Time: 12:24:38 Cytotechnologist/Histotechnologist: SILVERIO MEASUREMENT RESULTS: Intervals: Rate: 88 ND: 156 QRSD: 100 QT: 398 QTc: 481 [place]: P: 43 ND: 156 QRS: -70 T: 44 INTERPRETIVE STATEMENTS: Normal sinus rhythm Possible Left atrial enlargement Left axis deviation Incomplete right bundle branch block Septal infarct, age undetermined Abnormal ECG Compared to ECG 05/12/2021 06:44:17 Left-axis deviation now present Myocardial infarct finding now present Ventricular premature complex(es) no longer present Left ventricular hypertrophy no longer present ST (T wave) deviation no longer present Prolonged QT interval no longer present Electronically Signed On 04-17-22 08:55:59 CDT by Ferny Willoughby
== END 2022-04-16 06:46 | disposition home or self-care (01) ==
LOC: ER 04:37
DX: R21 Rash and other nonspecific skin eruption (principal); R07.89 Other chest pain; I10 Essential (primary) hypertension; Z95.1 Presence of aortocoronary bypass graft; Z95.5 Presence of coronary angioplasty implant and graft
CPT/HCPCS: 96365; 93005; 85025; 80048; 36415; 84484; 96375; 99283; J1200; J7050; J2930; J2405

== ENCOUNTER 2022-04-16 11:51 | Observation (INO) | payer BC ==
--- OUTSIDE RECORDS SUMMARY | 2022-04-16 11:56 | XMS REPORT | Continuity of Care Document ---
:1965 Author Organization [facility] t Address [address] [place] [address] Care Team Providers Name Role Phone MALLORY LEBLANC Primary Care Physician Unavailable SOREN WILSON Attending Clinician Unavailable DR MALLORY LEBLANC Attending Clinician Unavailable [phone] Attending Clinician Unavailable Soren Wilson MD Attending Clinician Tim Vyas MD Attending Clinician DONALDO JUSTICE Attending Clinician Unavailable SOREN WILSON Admitting Clinician Unavailable DR MALLORY LEBLANC Admitting Clinician Unavailable DONALDO JUSTICE Admitting Clinician Unavailable Payers Payer Name Policy Type Policy Number Effective Date Expiration Date S helen BLUE CROSS BLUE [id number] SHIELD - OP BCBS PPO POS EPO [id number] 2019 CHOICE 00:00:00 Problems Condition Condition Condition Status Onset Resolution Last Treating Co mments Source Name Details Category Date Date Treatment Clinician Date COVID-19 COVID-19 [facility] Coronary Coronary Disease [facility] disease disease [facility]: Medical involving involving 00 [facility] [place] 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 Allergies, Adverse Reactions, Alerts Allergy Allergy [...] Source Maternal grandmother Heart disease C [facility] Maternal grandmother Cancer [facility] Maternal uncle Stroke [facility] Natural mother Diabetes [facility] Natural mother Heart disease [facility] Natural mother Hypertension [facility] Natural mother Stroke [facility] Paternal uncle Diabetes [facility] Natural father Cancer [facility] Social History Social Habit Start Date Stop Date Quantity Comments Source History SDOH [facility] Alcohol Frequency Medical [facility] History SDOH [facility] Alcohol Std Medical Cente r Drinks History SDOH [facility] Alcohol Binge Medical Tresa ter Alcohol Comment 2021-05-12 2021-05-12 only1, [address] [facility] 00:00:00 00:00:00 year [facility] Tobacco Comment 2021-05-12 2021-05-12 stop smoking [address] [facility] 00:00:00 00:00:00 years ago [facility] Alcohol intake 2017-10-30 2017-10-30 1.71 /d [facility] 00:00:00 00:00:00 Hospital Tobacco use and 2017-10-28 2017-10-28 User of smokeless [facility] exposure 00:00:00 00:00:00 tobacco Hospital Sex Assigned At [birth year] [facility] 00:00:00 00:00:00 Hospital Smoking Status Start Date Stop Date Source Former smoker 2021-05-12 00:00:00 2021-05-12 00:00:00 [facility] Never smoker [facility] Medications Ordered Filled Start Stop [...] MG 11:27: mouth Medical capsule 57 daily. [place] nitroglycer Yes .4mg Place 0.4 C HI [...] kg Body height 2021-05-13 08:00:00 180.3 cm [facility] Body weight 2021-05-13 08:00:00 106.595 kg [facility] BMI 2021-05-13 08:00:00 32.78 kg/m2 [facility] Oxygen saturation in 2021-05-13 07:26:00 94 /min [facility] Arterial blood by Medical Ce nter Pulse oximetry Systolic blood 2021-05-13 07:26:00 128 mm[Hg] [facility] Diastolic blood 2021-05-13 07:26:00 85 mm[Hg] [facility] Heart rate 2021-05-13 07:26:00 64 /min [facility] Body temperature 2021-05-13 07:26:00 36.22 Charlene [facility] Respiratory rate 2021-05-13 07:26:00 20 /min [facility] Procedures Procedure Date / Time Performed Performing Clinician Joi gaspar POCT-GLUCOSE METER 2021-05-13 07:43:00 Tim Vyas [facility] BASIC METABOLIC PANEL 2021-05-13 04:21:00 [facility] () [facility] HEPATIC FUNCTION PANEL 2021-05-13 04:21:00 [facility] HEMOGLOBIN A1C 2021-05-13 04:21:00 [facility] LIPID PANEL 2021-05-13 04:21:00 [facility] PROTHROMBIN TIME/INR 2021-05-13 04:21:00 [facility] CBC W/PLT COUNT & AUTO 2021-05-13 04:21:00 [facility] C-REACTIVE PROTEIN 2021-05-13 04:21:00 [facility] FERRITIN 2021-05-13 04:21:00 [facility] D-DIMER 2021-05-13 04:21:00 [facility] CBC W/PLT COUNT & AUTO 2021-05-13 04:21:00 [facility] POCT-GLUCOSE METER 2021-05-12 19:38:00 [facility] POCT-GLUCOSE METER 2021-05-12 16:42:00 [facility] Plan of Care Planned Activity Planned Date Details Comments Source Future Scheduled 2024-05-13 Lipid panel [facility] Test 00:00:00 (procedure) [code = Medical Center 36956178] Future Scheduled 2021-11-10 Hemoglobin A1c [facility] Test 00:00:00 [facility] (procedure) [code = 76396101] Future Scheduled 2021-09-29 COVID-19 VACCINE (1) [facility] Test 13:09:20 [code = COVID-19 VACCINE (1)] Future Scheduled 2021-09-29 COLONOSCOPY SCREENING [facility] Test 13:09:20 [code = COLONOSCOPY SCREENING] Future Scheduled 2021-09-29 SHINGLES VACCINES (#1) [facility] Test 13:09:20 [code = SHINGLES VACCINES (#1)] Future Scheduled 2021-09-29 INFLUENZA VACCINE [facility] Test 13:09:20 [code = INFLUENZA VACCINE] Future Scheduled 2021-09-29 COVID-19 [facility]ACCINE (1) [facility] 13:09:20 [code = COVID-19 VACCINE (1)] Future Scheduled 2021-09-29 [facility]ING [facility] Test 13:09:20 [code = COLONOSCOPY SCREENING] Future Scheduled 2021-09-29 [facility]IN[facility] 13:09:20 [code = SHINGLES VACCINES (#1)] Future Scheduled 2021-09-29 INFLUENZA VACCINE [facility] Test 13:09:20 [code = INFLUENZA VACCINE] Future Scheduled 2021-07-[address] [facility] Test 00:[facility]00 (procedure) [code = Medical Center 54024341] Future Scheduled 2021-07-[address] [facility] Test 00:00:00 (procedure) [code = Medical Center 94641510] Future Scheduled 2021-04-29 INFLUENZA VACCINE (#1) C [...] 00:00:00 measurement Medical Center (procedure) [code = 28672793] Future Scheduled 2019-01-[address] [facility] Test 00:00:00 measurement Medical Center (procedure) [code = 55195093] Future Scheduled 2015 SHINGLES VACCINES (1 [facility] [...] 00:00:00 examination Medical Center (regime/therapy) [code = 439828290] Future Scheduled 1975 Urine screening [facility] Test 00:00:00 protein (procedure) Medical Center [code = 610333711] Future Scheduled [address] DIABETIC EYE EXAM [facility] Test 00:00:00 [code = DIABETIC EYE Medical Center EXAM] Future Scheduled [address] [facility] Test 00:00:00 examination Medical Center (regime/therapy) [code = 672231271] Future Scheduled 1975 Urine screening [facility] Test 00:00:00 protein (procedure) Medical Center [code = 123522390] Future Scheduled [address]ABETIC EYE EXAM [facility] Test 00:00:00 [code = DIABETIC EYE Medical Center EXAM] Future Scheduled [address] [facility] Test 00:00:00 examination Medical Center (regime/therapy) [code = 530002886] Future Scheduled 1975 Urine screening [facility] Test 00:00:00 protein (procedure) Medical Center [code = 875618877] Future Scheduled [address] [...] Medica l Center colon (procedure) [code = 750523592] Future Scheduled [address] [facility] Test 00:00:00 malignant neoplasm of Medica l Center colon (procedure) [code = 955593940] Future Scheduled [address] Test 00:00:00 malignant neoplasm of Medica l Center colon (procedure) [code = 945832619] Future Scheduled COVID-19 VACCINE (1) [facility] Hospital Test [code = COVID-19 VACCINE (1)] Future Scheduled COLONOSCOPY SCREENING [facility] Test [code = COLONOSCOPY SCREENING] Future Scheduled SHINGLES VACCINES (#1) [facility] Test [code = SHINGLES VACCINES (#1)] Future Scheduled INFLUENZA VACCINE [facility] Test [code = INFLUENZA VACCINE] Future Scheduled COVID-19 VACCINE (1) Met [facility] Test [code = COVID-19 VACCINE (1)] Future Scheduled COLONOSCOPY SCREENING [facility] Test [code = COLONOSCOPY SCREENING] Future Scheduled SHINGLES VACCINES (#1) [facility] Test [code = SHINGLES VACCINES (#1)] Future Scheduled INFLUENZA VACCINE [facility] Test [code = INFLUENZA VACCINE] Encounters Start End Encounter Admission Attending Care Care Encounter Source Date/Time Date/Time Type Type Clinicians Facility Department ID 2022-02-10 Outpatient ELC[facility] [id number] El 10:20:05 [id number] [facility] 2021-12-31 Outpatient ELCAM[facility] E[facility] [id number] El 09:23:53 [id number] [facility] 2021-06-07 Inpatient [facility] [id number] [facility] 12:24:57 [facility] 2022-03-25 2022-03-25 Outpatient Jarad [facility] [id number] [facility] 07:33:00 07:33:00 [id number] [facility] 2021-12-31 2021-12-31 Outpatient [facility]ORY [facility]NE [facility] [id number] [facility] 09:26:00 09:26:00 [id number] [facility] 2021-05-12 2021-05-[facility] [id number] [facility] 14:00:00 11:27:[address] [facility] 2018-07-18 2018-07-18 Outpatient JANES KIDD [facility] [id number] [facility] 00:00:00 00:00:00 DONALDO Results Test Description Test Time Test Comments Results Result Comments Source Ferritin 2021-05-13 08:23:15 Test Item Value Reference Range Interpretation Comme nts Ferritin (test code = 2276-4) 2096.56 ng/mL 5.00-275.00 H MURIEL (test code = MURIEL) Bicycle I Assembler ID - MAX MOperator ID - MAX M Lab Interpretation (test code = Abnormal 97193-4) [facility] 08:23:15 Test Item Value Reference Range Interpretation Comments FERRITIN (BEAKER) (test code = 2096.56 ng/mL 5.00-275.00 H 361) Bicycle I Assembler ID - MAX MOperator ID - MAX MPOC-Glucose [id number] 07:55:15 Test Item Value Reference Range Interpretation Comments POC-Glucose Meter (test 283 mg/dL 70-110 H : TE STED AT [facility] code = 1538) [address] [facility], [address] 30: Bicycle I Assembler/Techni israel ID = [id number] for Payal (contract )Reina Lab Interpretation (test Abnormal code = 54745-5) [facility] [id number] 07:55:15 Test Item Value Reference Range Interpretation Comments POC-GLUCOSE METER 283 mg/dL 70-110 H : TESTED A T [facility] 6720 (BEAKER) (test code = SURAJ R [facility], 1538) [address]: Bicycle I Assembler/Techni israel ID = [id number] for Nishant holland (contract)Shireen Hemoglobin [id number] 07:46:02 Test Item Value Reference Range Interpretation Comments Hemoglobin A1C (test code = 4548-4) 8.5 % 4.3-6.1 H Lab Interpretation (test code = Abnormal 91423-4) [facility] Center[facility] [id number] 07:46:02 Test Item Value Reference Range Interpretation Comments HEMOGLOBIN A1C (BEAKER) (test code = 8.5 % 4.3-6.1 H 368) Lipid [id number] 05:25:49 Test Item Value Reference Range Interpretation Comments Triglycerides (test 220 mg/dL code = 2571-8) Cholesterol (test code 182 mg/dL = 2093-3) HDL (test code = 41 mg/dL 2085-9) LDL Calculated (test 97 mg/dL code = 07888-0) MURIEL (test code = MURIEL) Triglyceride Reference Range: Low Risk <150 Borderline 150-199 High Risk 200-499 Very High Risk >=500 Cholesterol Reference Range: Low Risk <200 Borderline 200-239 High Risk >240 HDL Cholesterol Reference Range: Low Risk >=60 High Risk <40 LDL Cholesterol Reference Range: Optimal <100 Near Optimal 100-129 Borderline 130-159 High 160-189 Very High >=190 Bicycle I Assembler PAOLO Pimentel [facility] CenterHepatic function [id number] 05:25:49 Test Item Value Reference Range Interpretation Comments Protein, Total (test 7.1 See_Comment [Autom ated code = 2885-2) message] The system which generated this result transmit carmen reference range : 6.0 - 8.3 gm/dL . The reference range was not u sed to interpret th is result as normal/abnormal . Albumin (test code = 3.4 g/dL 3.5-5.0 L 92350-6) Total Bilirubin (test 0.6 mg/dL 0.2-1.2 code = 1975-2) Bilirubin, Direct 0.3 mg/dL 0.1-0.5 (test code = 1968-7) Alkaline Phosphatase 132 U/L 40-150 (test code = 6768-6) AST (test code = 35 U/L 5-34 H 1920-8) ALT (test code = 53 U/L 6-55 1742-6) MURIEL (test code = MURIEL) Bicycle I Assembler ID Rigo Pimentel Lab Interpretation Abnormal (test code = 65799-4) [facility]-Reactive [id number] 05:25:49 Test Item Value Reference Range Interpretation Comments CRP (test code = 676) 12.50 mg/dL 0.00-0.50 H MURIEL (test code = MURIEL) Bicycle I Assembler ID Rigo Pimentel Lab Interpretation (test Abnormal code = 06791-2) [facility] Center[facility]IPID [id number] 05:25:49 Test Item Value Reference Range Interpretation [...] Borderline 130-159 High 160-189 Very High >=190 Bicycle I Assembler ID - MAX MHEPATIC FUNCTION [id number] 05:25:49 Test Item Value Reference Range Interpretation [...] (test code = 53 U/L 6-55 347) Bicycle I Assembler ID - MAX MC-REACTIVE [id number] 05:25:49 Test Item Value Reference Range Interpretation Comments C-REACTIVE PROTEIN (BEAKER) (test 12.50 mg/dL 0.00-0.50 H code = 676) Bicycle I Assembler ID - MAX MBasic metabolic [id number] 05:25:48 Test Item Value Reference Range Interpretation Comments Sodium (test code = 138 meq/L 846-694 7505-2) Potassium (test code = 4.3 meq/L 3.5-5.1 2823-3) Chloride (test code = 104 meq/L 98-107 2075-0) CO2 (test code = 22 meq/L 22-29 2028-9) BUN (test code = 20 mg/dL 7-21 3094-0) Creatinine (test code 0.88 mg/dL 0.57-1.25 = 2160-0) Glucose (test code = 314 mg/dL 70-105 H 2345-7) Calcium (test code = 9.5 mg/dL 8.4-10.2 77649-3) EGFR (test code = 90 mL/min/1.73 [place] [address]-8) NOT ACCURATE CREATININE CLEARANCE IN PREDICTING GLOMERULAR FILTRATION RATE . ESTIMATED GFR I S NOT APPLICABLE FOR DIALYSIS PATIENTS. MURIEL (test code = MURIEL) Bicycle I Assembler ID - MAX M Lab Interpretation Abnormal (test code = 26959-2) [facility] CenterBASI METABOLIC [id number] 05:25:48 Test Item Value Reference Range Interpretation [...] S NOT APPLICABLE FOR DIALYSIS PATIEN TS. Bicycle I Assembler ID - MAX MCBC with platelet count + automated [id number] 05:03:38 Test Item Value Reference Range Interpretation Comments WBC (test code = 6690-2) 7.4 See_Comment [A utomated message] The system [employer] generated this result transmitted ref erence range: 3.5 - 10 .5 K/L. The refe rence range was not u sed to interpret this result as normal/abnor mal. RBC (test code = 789-8) 4.62 See_Comment L [Au tomated message] The system [employer] generated this result transmitted ref erence range: 4.63 - 6 .08 M/L. The refe rence range was not u sed to interpret this result as normal/abnor mal. MCHC (test code = 786-4) 33.5 See_Comment [A utomated message] The system [employer] generated this result transmitted ref erence range: [...] See_Comment [Aut omated message] 777-3) The system [employer] generated this result transmitted ref erence range: 150 - 45 0 K/CU MM. The referen ce range was not u sed to interpret this result as normal/abnor mal. MPV (test code = 10.4 fL 9.4-12.4 57060-4) nRBC (test code = 413) 0 See_Comment [Aut omated message] The system [employer] generated this result transmitted ref erence range: [...] H [Aut omated message] 670) The system [employer] generated this result transmitted ref erence range: 1.78 - 5 .38 K/L. The refe rence range was not u sed to interpret this result as normal/abnor mal. # Lymphs (test code = 0.89 See_Comment L [Auto mated message] 414) The system [employer] generated this result transmitted ref erence range: 1.32 - 3 .57 K/L. The refe rence range was not u sed to interpret this result as normal/abnor mal. # Monos (test code = 0.47 See_Comment [Autom ated message] 415) The system [employer] generated this result transmitted ref erence range: 0.30 - 0 .82 K/L. The refe rence range was not u sed to interpret this result as normal/abnor mal. # Eos (test code = 416) 0.00 See_Comment L [Au tomated message] The system [employer] generated this result transmitted ref erence range: 0.04 - 0 .54 K/L. The refe rence range was not u sed to interpret this result as normal/abnor mal. # Baso (test code = 417) 0.02 See_Comment [A utomated message] The system [employer] generated this result transmitted ref erence range: 0.01 - 0 .08 K/L. The refe rence range was not u sed to interpret this result as normal/abnor mal. Immature 1 % 0-1 Granulocytes-Relative (test code = 2801) Lab Interpretation (test Abnormal code = 04003-0) [facility] W/PLT COUNT & AUTO [id number] 05:03:38 Test Item Value Reference Range Interpretation [...] 0-1 PERCENT (BEAKER) (test code = 2801) [id number] 04:55:15 Test Item Value Reference Range Interpretation Comments D-Dimer, Quant (test 0.41 See_Comment [Autom ated code = 83029-4) message] The system which generated this result [...] range. Lab Interpretation Normal (test code = 01294-7) [facility] CenterD-[id number] 04:55:15 Test Item Value Reference Range Interpretation [...] of thrombosis is within 95-100% range. Prothrombin time/[id number] 04:52:50 Test Item Value Reference Interpretation Comments Range Protime (test code = 13.3 See_Comment [Autom ated 6232-2) message] The system which generated this result transmitted reference range : 11.9 - 14.2 seconds. The reference range was not used to interpret this result as normal/abnormal . INR (test code = 1.03 See_Comment [Automated 8611-6) message] The system which generated this result [...] valves. Lab Interpretation Normal (test code = 86027-7) [facility] CenterPROTHROMBIN TIME/[id number] 04:52:50 Test Item Value Reference Range Interpretation Comments PROTIME (BEAKER) 13.3 seconds 11.9-14.2 (test code = 759) INR (BEAKER) (test 1.03 See_Comment [Automat ed message] code = 370) The system [employer] generated this result transmitted ref erence range: <=5.90. The reference range was not used to int erpret this result as normal/abnormal . RECOMMENDED COUMADIN/WARFARIN INR THERAPY RANGESSTANDARD DOSE: 2.0 - 3.0 Includes: PROPHYLAXIS for venous thrombosis, systemic embolization; TREATMENT for venous thrombosis and/or pulmonary embolus.HIGH RISK: Target INR is 2.5-3.5 for patients with mechanical heart valves.POCT-GLUCOSE [id number] 19:55:32 Test Item Value Reference Range Interpretation Comments POC-GLUCOSE METER 391 mg/dL 70-110 H : Notified RN/MD: (BEAKER) (test code = TESTED AT [place] [address] 1538) LARRY [facility], [address]: Bicycle I Assembler/Techni israel ID = [id number] for JUAN CARLOS SIU POCT-GLUCOSE [id number] 16:53:52 Test Item Value Reference Range Interpretation Comments POC-GLUCOSE METER 301 mg/dL 70-110 H : TESTED A T [facility] 67 (BEAKER) (test [facility] = [facility], 1538) [address]: Bicycle I Assembler/Techni israel ID = [id number] for Jessica abbott Halimatony URINALYSIS W/ REFLEX URINE [id number] 16:24:00 Test Item Value Reference Range Interpretation [...] /LPF SOURCE(BEAKER) (test code = 2795) POCT-GLUCOSE [id number] 12:36:00 Test Item Value Reference Range Interpretation Comments POC-GLUCOSE METER 151 mg/dL 70-110 H TESTED AT [facility] 67 (BEAKER) (test code = SURAJ Colon [facility] 1538) [address] POCT-GLUCOSE [id number] 08:14:00 Test Item Value Reference Range Interpretation Comments POC-GLUCOSE METER 159 mg/dL 70-110 H TEST[facility] AT [place] [address] [facility] (test code = SURAJ Colon [facility] 1538) [address] RAD, CHEST, 1 VIEW, NON [id number] 08:10:00Reason for exam:->eval pulmonary congestionShould this be [...] MDReport Verified Date/Time: 07/11/2018 08:10:57 Reading Location: [facility] C0[facility] Neuro Reading Room [id number] 05:02:00 Test Item Value Reference Range Interpretation Comments MAGNESIUM (BEAKER) (test code = 2.1 mg/dL 1.6-2.6 627) BASIC METABOLIC [id number] 05:02:00 Test Item Value Reference Range Interpretation [...] 150-450 code = 756) MEAN PLATELET VOLUME ([facility]) 10.0 fL 9.4-12.4 (test code = 754) NUCLEATED RED BLOOD CELLS 0 /100 WBC 0-0 ([facility]) (test code = 413) POCT-GLUCOSE [id number] 21:35:00 Test Item Value Reference Range Interpretation Comments POC-GLUCOSE METER 172 mg/dL 70-110 H TESTED AT [place] [address] ([facility]) (test code = SURAJ [place] 1538) [address] POCT-GLUCOSE [id number] 17:50:00 Test Item Value Reference Range Interpretation Comments POC-GLUCOSE METER 142 mg/dL 70-110 H TESTED AT [place] [address] ([facility]) (test code = SUR[place] 1538) [address] B-TYPE NATRIURETIC FACTOR (BNP)2018-07-10 14:23:00 Test Item Value Reference Range Interpretation Comments B-TYPE NATRIURETIC PEPTIDE ([facility]) 263 pg/mL 0-100 H (test code = 700) POCT-GLUCOSE [id number] 12:30:00 Test Item Value Reference Range Interpretation Comments POC-GLUCOSE METER 162 mg/dL 70-110 H TESTED AT [place] [address] ([facility]) (test code = SUR[place] 1538) [address] POCT-GLUCOSE [id number] 08:28:00 Test Item Value Reference Range Interpretation Comments POC-GLUCOSE METER 248 mg/dL 70-110 H TESTED AT [place] [address] ([facility]) (test code = [place] 1538) [address] RAD, CHEST, 1 VIEW, NON [id number] 07:32:00Reason for exam:->eval pulmonary congestionShould this be [...] MDReport Verified Date/Time: 07/10/2018 07:32:04 Reading Location: [facility] C013V Neuro Reading Room [id number] 06:04:00 Test Item Value Reference Range Interpretation Comments MAGNESIUM (BEAKER) (test code = 2.3 mg/dL 1.6-2.6 627) BASIC METABOLIC [id number] 06:04:00 Test Item Value Reference Range Interpretation [...] MEAN CORPUSCULAR HEMOGLOBIN 33.1 pg 25.7-32.2 H ([facility]) (test code = 751) MEAN CORPUSCULAR HEMOGLOBIN CONC 32.5 GM/DL 32.3-36.5 (AKER) (test code = 752) RED CELL DISTRIBUTION WIDTH 12.4 % 11.6-14.4 (AKER) (test code = 412) PLATELET COUNT ([facility]) (test 173 K/CU MM 150-450 code = 756) MEAN PLATELET VOLUME (AKER) 10.7 fL 9.4-12.4 (test code = 754) NUCLEATED RED BLOOD CELLS 0 /100 WBC 0-0 (AKER) (test code = 413) POCT-GLUCOSE [id number] 21:23:00 Test Item Value Reference Range Interpretation Comments POC-GLUCOSE METER 166 mg/dL 70-110 H TESTED AT [facility] 6720 ([facility]) (test code = [place] 1538) [address] [id number] 12:50:00 Test Item Value Reference Range Interpretation Comments POTASSIUM (BEAKER) (test code = 4.0 meq/L 3.5-5.1 379) Check Serum Magnesium level 2 hours after IV magnesium replacement.Check Serum Phosphorus level 4 hours after IV phosphorus replacement or 8 hours after PO replacement completed.Every 8 hours PRN for Creatinine greater than or equal to 2 mg/dL.[id number] 12:50:00 Test Item Value Reference Range Interpretation Comments MAGNESIUM (BEAKER) (test code = 2.3 mg/dL 1.6-2.6 627) Check Serum Magnesium level 2 hours after IV magnesium replacement.Check Serum Phosphorus level 4 hours after IV phosphorus replacement or 8 hours after PO replacement completed.Every 8 hours PRN for Creatinine greater than or equal to 2 mg/dL.[id number] 12:50:00 Test Item Value Reference Range Interpretation Comments PHOSPHORUS (BEAKER) (test code = 1.6 mg/dL 2.3-4.7 L 604) Check Serum Magnesium level 2 hours after IV magnesium replacement.Check Serum Phosphorus level 4 hours after IV phosphorus replacement or 8 hours after PO replacement completed.Every 8 hours PRN for Creatinine greater than or equal to 2 mg/dL.POCT-GLUCOSE [id number] 12:19:00 Test Item Value Reference Range Interpretation Comments POC-GLUCOSE METER 255 mg/dL 70-110 H TESTED AT [facility] ([facility]) (test code = SURAJ Colon [place] 1538) [address] RAD, CHEST, 1 VIEW, NON [id number] 09:46:00while patient is intubated or has chest [...] [place] Verified Date/Time: 07/09/2018 09:46:04 Reading Location: [address] Transitional Reading Room POCT-GLUCOSE [id number] 08:01:00 Test Item Value Reference Range Interpretation Comments POC-GLUCOSE METER 173 mg/dL 70-110 H TESTED AT [facility] ([facility]) (test code = SURAJ Colon [facility] 1538) [address] [id number] 04:58:00 Test Item Value Reference Range Interpretation Comments PHOSPHORUS (BEAKER) (test code = 2.3 mg/dL 2.3-4.7 604) Check Serum Phosphorus level 4 hours after IV phosphorus replacement or 8 hours after PO replacementcompleted.[id number] 04:58:00 Test Item Value Reference Range Interpretation Comments MAGNESIUM (BEAKER) (test code = 2.3 mg/dL 1.6-2.6 627) Check Serum Phosphorus level 4 hours after IV phosphorus replacement or 8 hours after PO replacementcompleted.BASIC METABOLIC [id number] 04:58:00 Test Item Value Reference Range Interpretation [...] WBC 0-0 (BEAKER) (test code = 413) [id number] 00:40:00 Test Item Value Reference Range Interpretation Comments POTASSIUM (BEAKER) (test code = 3.5 meq/L 3.5-5.1 379) Every 8 hours PRN for Creatinine greater than or equal to 2 mg/dL.POCT-GLUCOSE [id number] 20:50:00 Test Item Value Reference Range Interpretation Comments POC-GLUCOSE METER 171 mg/dL 70-110 H TESTED AT [place] [address] ([facility]) (test code = [facility] 1538) [address] [id number] 18:19:00 Test Item Value Reference Range Interpretation Comments POTASSIUM (BEAKER) (test code = 3.7 meq/L 3.5-5.1 379) Check Serum Magnesium level 2 hours after IV magnesium replacement.Check Serum Phosphorus level 4 hours after IV phosphorus replacement or 8 hours after PO replacement completed.8 hours after PO replacement [id number] 18:19:00 Test Item Value Reference Range Interpretation Comments MAGNESIUM (BEAKER) (test code = 2.1 mg/dL 1.6-2.6 627) Check Serum Magnesium level 2 hours after IV magnesium replacement.Check Serum Phosphorus level 4 hours after IV phosphorus replacement or 8 hours after PO replacement completed.8 hours after PO replacement [id number] 18:19:00 Test Item Value Reference Range Interpretation [...] 4 hours after IV Calcium replacement. POCT-GLUCOSE [id number] 17:17:00 Test Item Value Reference Range Interpretation Comments POC-GLUCOSE METER 195 mg/dL 70-110 H TESTED AT [place] [address] ([place]) (test code = [facility] 1538) [address] POCT-GLUCOSE [id number] 12:17:00 Test Item Value Reference Range Interpretation Comments POC-GLUCOSE METER 231 mg/dL 70-110 H TESTED AT [facility] 67[address] (BEAKER) (test code = SURAJ [place] 1538) [address] RAD, CHEST, 1 VIEW, NON [id number] 09:19:00Reason for exam:- >hypoxiaShould this be performed [...] MDReport Verified Date/Time: 07/08/2018 09:19:57 Reading Location: [address] Transitional Reading Room [id number] 08:56:00 Test Item Value Reference Range Interpretation Comments PHOSPHORUS (BEAKER) (test code = 1.7 mg/dL 2.3-4.7 L 604) [id number] 08:56:00 Test Item Value Reference Range Interpretation Comments MAGNESIUM (BEAKER) (test code = 2.1 mg/dL 1.6-2.6 627) BASIC METABOLIC [id number] 08:56:00 Test Item Value Reference Range Interpretation [...] APPLICABLE FOR DIALYSIS PATIEN TS. BLOOD GAS, [id number] 08:49:00 Test Item Value Reference Range Interpretation [...] 60.0 % CBC W/PLT COUNT & AUTO [id number] 06:39:00 Test Item Value Reference Range Interpretation [...] PERCENT (BEAKER) (test code = 2801) POCT-GLUCOSE [id number] 05:59:00 Test Item Value Reference Range Interpretation Comments POC-GLUCOSE METER 175 mg/dL 70-110 H TESTED AT [facility] 67[address] (BEAKER) (test code = SURAJ Colon [place] 1538) [address] BLOOD GAS, [id number] 21:35:00 Test Item Value Reference Range Interpretation [...] (test code = 1819) 60.0 % POCT-GLUCOSE [id number] 21:31:00 Test Item Value Reference Range Interpretation Comments POC-GLUCOSE METER 194 mg/dL 70-110 H TESTED AT [facility] 67[address] (BEAKER) (test code = SURAJ [place] 1538) [address] OXYGEN SATURATION, [id number] 19:33:00 Test Item Value Reference Range Interpretation Comments O2 SATURATION (MEASURED) (BEAKER) 68.6 % (test code = 1455) For occult hypoperfusionLACTIC ACID, VENOUS, WHOLE [id number] 16:49:00 Test Item Value Reference Range Interpretation Comments LACTATE BLOOD VENOUS (2) (BEAKER) 1.0 mmol/L 0.5-2.2 (test code = 2872) BLOOD GAS, [id number] 16:43:00 Test Item Value Reference Range Interpretation [...] 60.0 % CBC W/PLT COUNT & AUTO [id number] 16:37:00 Test Item Value Reference Range Interpretation [...] 3438) Received comment: User comments: Slide comments:POCT-GLUCOSE [id number] 16:30:00 Test Item Value Reference Range Interpretation Comments POC-GLUCOSE METER 239 mg/dL 70-110 H TESTED AT [facility] 67[address] (BEAKER) (test code = SURAJ Colon [place] 1538) [address] BLOOD GAS, [id number] 13:33:00 Test Item Value Reference Range Interpretation [...] (BEAKER) (test code = 1819) 32.0 % [id number] 13:09:00 Test Item Value Reference Range Interpretation Comments MAGNESIUM (BEAKER) 2.2 mg/dL 1.6-2.6 Specimen slightly (test code = 627) hemolyzed BASIC METABOLIC [id number] 13:09:00 Test Item Value Reference Range Interpretation [...] NOT APPLICABLE FOR DIALYSIS PATIEN TS. CALCIUM, [id number] 12:44:00 Test Item Value Reference Range Interpretation Comments CALCIUM IONIZED (BEAKER) (test 1.14 mmol/L 1.12-1.27 code = 698) PH, BLOOD (BEAKER) (test code = 7.34 1810) [id number] 11:12:00 Test Item Value Reference Range Interpretation Comments MAGNESIUM (BEAKER) (test code = 2.1 mg/dL 1.6-2.6 627) Check Serum Magnesium level 2 hours after IV magnesium replacement.GLUCOSE-STAT [id number] 11:00:00 Test Item Value Reference Range Interpretation Comments GLUCOSE RANDOM (BEAKER) (test code 194 mg/dL 70-110 H = 652) HGB/HCT (H&H) - STAT [id number] 11:00:00 Test Item Value Reference Range Interpretation Comments HEMOGLOBIN (BEAKER) (test code = 12.5 g/dL 13.0-16.8 L 410) HEMATOCRIT (BEAKER) (test code = 37.0 % 40.0-50.0 L 411) SODIUM NA-STAT [id number] 10:58:00 Test Item Value Reference Range Interpretation Comments SODIUM (BEAKER) (test code = 381) 138 meq/L 135-148 POTASSIUM-STAT [id number] 10:58:00 Test Item Value Reference Range Interpretation Comments POTASSIUM (BEAKER) (test code = 4.2 meq/L 3.6-5.5 379) CBC W/PLT COUNT & AUTO [id number] 09:53:00 Test Item Value Reference Range Interpretation [...] 0-1 PERCENT (BEAKER) (test code = 2801) [id number] 05:10:00 Test Item Value Reference Range Interpretation Comments MAGNESIUM (BEAKER) 2.3 mg/dL 1.6-2.6 Specimen slightly (test code = 627) hemolyzed [id number] 05:10:00 Test Item Value Reference Range Interpretation Comments PHOSPHORUS (BEAKER) 3.9 mg/dL 2.3-4.7 Specimen slightly (test code = 604) hemolyzed BASIC METABOLIC [id number] 05:10:00 Test Item Value Reference Range Interpretation [...] PATIEN TS. RAD, CHEST, 1 VIEW, NON [id number] 04:15:00while patient is intubated or has chest [...] Arechigaort Verified Date/Time: 07/07/2018 04:15:31 Reading Location: [address] Reading Room POCT-GLUCOSE [id number] 22:22:00 Test Item Value Reference Range Interpretation Comments POC-GLUCOSE METER 208 mg/dL 70-110 H TESTED AT [facility] [address] (BEAKER) (test code = [place] 1538) [address] BLOOD GAS, [id number] 20:12:00 Test Item Value Reference Range Interpretation [...] 40.0 % CBC W/PLT COUNT & AUTO [id number] 19:32:00 Test Item Value Reference Range Interpretation [...] (BEAKER) (test code Normal = 486) POCT-GLUCOSE [id number] 18:56:00 Test Item Value Reference Range Interpretation Comments POC-GLUCOSE METER 206 mg/dL 70-110 H TESTED AT [facility] 67[address] (BEAKER) (test code = [place] 1538) [address] BASIC METABOLIC [id number] 17:20:00 Test Item Value Reference Range Interpretation [...] DIALYSIS PATIEN TS. LACTIC ACID, ARTERIAL, WHOLE [id number] 16:50:00 Test Item Value Reference Range Interpretation Comments LACTATE BLOOD ARTERIAL (2) 1.2 mmol/L 0.5-2.2 (BEAKER) (test code = 2874) [id number] 16:45:00 Test Item Value Reference Range Interpretation Comments MAGNESIUM (BEAKER) 2.7 mg/dL 1.6-2.6 H Specimen slightly (test code = 627) hemolyzed [id number] 16:45:00 Test Item Value Reference Range Interpretation Comments PHOSPHORUS (BEAKER) 3.6 mg/dL 2.3-4.7 Specimen slightly (test code = 604) hemolyzed [id number] 16:45:00 Test Item Value Reference Range Interpretation Comments POTASSIUM (BEAKER) 5.1 meq/L 3.5-5.1 Specimen slightly (test code = 379) hemolyzed [id number] 16:45:00 Test Item Value Reference Range Interpretation Comments SODIUM (BEAKER) (test code = 381) 137 meq/L 136-145 [id number] 16:45:00 Test Item Value Reference Range Interpretation Comments GLUCOSE RANDOM (BEAKER) (test code 193 mg/dL 70-105 H = 652) [id number] 16:39:00 Test Item Value Reference Range Interpretation [...] is 2.5-3.5 for patients with mechanical heart valves.[id number] 16:39:00 Test Item Value Reference Range Interpretation Comments FIBRINOGEN LEVEL (BEAKER) (test 282 mg/dl 225-434 code = 658) PROTHROMBIN [id number] 16:38:00 Test Item Value Reference Range Interpretation [...] mechanical heart valves.RAD, CHEST, 1 VIEW, NON [id number] 16:16:00Reason for exam:->s/p CABGShould this be performed [...] [place]eport Verified Date/Time: 07/06/2018 16:16:23 Reading Location: [facility] Radiology Reading Room EN SATURATION, [id number] 16:00:00 Test Item Value Reference Range Interpretation Comments O2 SATURATION (MEASURED) (BEAKER) 64.6 % (test code = 1455) BLOOD GAS, [id number] 15:59:00 Test Item Value Reference Range Interpretation [...] (BEAKER) (test code = 1819) 50.0 % [id number] 15:14:00 Test Item Value Reference Range Interpretation Comments ACTIVATED CLOTTING TIME 103 sec TEST ED AT [place] [address] ([facility]) (test code = ANNYXAVIER Colon [place] [address]) [address] [id number] 15:14:00 Test Item Value Reference Range Interpretation Comments ACTIVATED CLOTTING TIME 423 sec TEST ED AT [place] [address] ([facility]) (test code = SURAJ Colon [place] 441) [address] [id number] 15:14:00 Test Item Value Reference Range Interpretation Comments ACTIVATED CLOTTING TIME 384 sec TEST ED AT [place] [address] ([facility]) (test code = SURAJ Colon [place] 441) [address] THROMBOELASTOGRAPH (TEG)2018-07-06 15:08:00 Test Item Value Reference [...] 0.0 % 0.0-5.0 code = 1414) PLATELET [id number] 14:31:00 Test Item Value Reference Range Interpretation Comments PLATELET COUNT (BEAKER) (test 125 K/CU MM 150-450 L code = 756) [id number] 14:18:00 Test Item Value Reference Range Interpretation Comments FIBRINOGEN LEVEL (BEAKER) (test 406 mg/dl 225-434 code = 658) [id number] 14:18:00 Test Item Value Reference Range Interpretation Comments PARTIAL THROMBOPLASTIN TIME 24.4 seconds 22.5-36.0 (BEAKER) (test code = 760) PROTHROMBIN [id number] 14:17:00 Test Item Value Reference Range Interpretation Comments PROTIME (BEAKER) (test code = 14.1 seconds 11.7-14.7 759) INR (BEAKER) (test code = 370) 1.1 <=5.9 RECOMMENDED COUMADIN/WARFARIN INR THERAPY RANGESSTANDARD DOSE: 2.0 - 3.0 Includes: PROPHYLAXIS for venous thrombosis, systemic embolization; TREATMENT for venous thrombosis and/or pulmonary embolus.HIGH RISK: Target INR is 2.5-3.5 for patients with mechanical heart valves.GLUCOSE-STAT [id number] 14:03:00 Test Item Value Reference Range Interpretation Comments GLUCOSE RANDOM (BEAKER) (test code 165 mg/dL 70-110 H = 652) SODIUM NA-STAT [id number] 14:03:00 Test Item Value Reference Range Interpretation Comments SODIUM (BEAKER) (test code = 381) 133 meq/L 135-148 L HGB/HCT (H&H) - STAT [id number] 14:03:00 Test Item Value Reference Range Interpretation Comments HEMOGLOBIN (BEAKER) (test code = 12.5 g/dL 13.0-16.8 L 410) HEMATOCRIT (BEAKER) (test code = 37.0 % 40.0-50.0 L 411) POTASSIUM-STAT [id number] 14:02:00 Test Item Value Reference Range Interpretation Comments POTASSIUM (BEAKER) (test code = 4.4 meq/L 3.6-5.5 379) BLOOD GAS, [id number] 14:02:00 Test Item Value Reference Range Interpretation [...] code = 1819) 100.0 % BLOOD GAS, [id number] 13:22:00 Test Item Value Reference Range Interpretation Comments PH VENOUS (BEAKER) 7.34 7.32-7.42 This is a corrected (test code = 701) result. Pr evious result was 7.36 on 07/06/2018 at 13 13 PACKAGING LINE ATTENDANT PCO2 VENOUS (BEAKER) 46 mmHg 41-51 This is a corrected (test code = 755) result. Pr evious result was 44 m mHg on 07/06/2018 at 1313 PACKAGING LINE ATTENDANT PO2 VENOUS (BEAKER) 46 mmHg 25-40 H This is a corrected (test code = 702) result. Pr evious result was 282 mmHg on 07/06/2018 at 1313 PACKAGING LINE ATTENDANT O2 SATURATION VENOUS 93.4 % 40.0-70.0 H This is a corrected (BEAKER) (test code = result . Previous 703) result was 99.6 % on 07/06/2018 at 13 13 PACKAGING LINE ATTENDANT HCO3 VENOUS (BEAKER) 27 mmol/L 21-29 (test code = 705) BASE EXCESS VENOUS -1.8 mmol/L -2.0-3.0 (BEAKER) (test code = 704) PATIENT TEMPERATURE 28.2 C (BEAKER) (test code = 1818) FIO2 (BEAKER) (test 65.0 % code = 1819) BLOOD GAS, [id number] 13:15:00 Test Item Value Reference Range Interpretation [...] code = 1819) 65.0 % SODIUM NA-STAT [id number] 13:15:00 Test Item Value Reference Range Interpretation Comments SODIUM (BEAKER) (test code = 381) 132 meq/L 135-148 L GLUCOSE-STAT [id number] 13:15:00 Test Item Value Reference Range Interpretation Comments GLUCOSE RANDOM (BEAKER) (test code 183 mg/dL 70-110 H = 652) HGB/HCT (H&H) - STAT [id number] 13:15:00 Test Item Value Reference Range Interpretation Comments HEMOGLOBIN (BEAKER) (test code = 11.4 g/dL 13.0-16.8 L 410) HEMATOCRIT (BEAKER) (test code = 34.0 % 40.0-50.0 L 411) POTASSIUM-STAT [id number] 13:14:00 Test Item Value Reference Range Interpretation Comments POTASSIUM (BEAKER) (test code = 3.9 meq/L 3.6-5.5 379) SODIUM NA-STAT [id number] 13:07:00 Test Item Value Reference Range Interpretation Comments SODIUM (BEAKER) (test code = 381) 138 meq/L 135-148 POTASSIUM-STAT [id number] 13:07:00 Test Item Value Reference Range Interpretation Comments POTASSIUM (BEAKER) (test code = 4.1 meq/L 3.6-5.5 379) HGB/HCT (H&H) - STAT [id number] 13:07:00 Test Item Value Reference Range Interpretation Comments HEMOGLOBIN (BEAKER) (test code = 14.7 g/dL 13.0-16.8 410) HEMATOCRIT (BEAKER) (test code = 43.0 % 40.0-50.0 411) BLOOD GAS, [id number] 13:07:00 Test Item Value Reference Range Interpretation [...] (test code = 1819) 100.0 % GLUCOSE-STAT [id number] 13:07:00 Test Item Value Reference Range Interpretation Comments GLUCOSE RANDOM (BEAKER) (test code 157 mg/dL 70-110 H = 652) CALCIUM, [id number] 13:06:00 Test Item Value Reference Range Interpretation Comments CALCIUM IONIZED (BEAKER) (test 1.13 mmol/L 1.12-1.27 code = 698) PH, BLOOD ([facility] (test code = 7.23 1810) [id number] 12:49:00 Test Item Value Reference Range Interpretation Comments ACTIVATED CLOTTING TIME 472 sec TEST ED AT [place] [address] ([facility]) (test code = SURAJ Colon [place] [address]) [address] POCT-GLUCOSE [id number] 08:01:00 Test Item Value Reference Range Interpretation Comments POC-GLUCOSE METER 201 mg/dL 70-110 H TESTED AT [place] [address] ([facility]) (test code = SURAJ Colon [facility] 1538) [address] [id number] 06:43:00 Test Item Value Reference Range Interpretation Comments PARTIAL THROMBOPLASTIN TIME 109.3 seconds 22.5-36.0 H ([facility]) (test code = 760) CBC W/PLT COUNT & AUTO [id number] 06:24:00 Test Item Value Reference Range Interpretation [...] 0-1 PERCENT (BEAKER) (test code = 2801) [id number] 01:14:00 Test Item Value Reference Range Interpretation Comments PARTIAL THROMBOPLASTIN TIME 90.5 seconds 22.5-36.0 H (BEAKER) (test code = 760) 6 hours after starting heparin infusion and as indicated per sliding scale PROTHROMBIN TIME/[id number] 01:12:00 Test Item Value Reference Range Interpretation [...] heparin infusion and as indicated per sliding [id number] 01:02:00 Test Item Value Reference Range Interpretation Comments MAGNESIUM (BEAKER) 2.9 mg/dL 1.6-2.6 H Specimen slightly (test code = 627) hemolyzed COMPREHENSIVE METABOLIC [id number] 01:02:00 Test Item Value Reference Range Interpretation [...] Specimen markedly lipemicCBC W/PLT COUNT & AUTO [id number] 00:44:00 Test Item Value Reference Range Interpretation [...] PERCENT (BEAKER) (test code = 2801) POCT-GLUCOSE [id number] 21:33:00 Test Item Value Reference Range Interpretation Comments POC-GLUCOSE METER 286 mg/dL 70-110 H TESTED AT [facility] 6720 (AKER) (test code = SUR[place] 1538) [address] [id number] 19:12:00 Test Item Value Reference Range Interpretation Comments PARTIAL THROMBOPLASTIN TIME 64.6 seconds 22.5-36.0 H ([facility]) (test code = 760) POCT-GLUCOSE [id number] 18:10:00 Test Item Value Reference Range Interpretation Comments POC-GLUCOSE METER 165 mg/dL 70-110 H TESTED AT [place] [address] ([facility]) (test code = SURAJ [place] 1538) [address] POCT-GLUCOSE [id number] 12:50:00 Test Item Value Reference Range Interpretation Comments POC-GLUCOSE METER 152 mg/dL 70-110 H TESTED AT [place] [address] ([facility]) (test code = SUR[place] 1538) [address] HEMOGLOBIN [id number] 10:06:00 Test Item Value Reference Range Interpretation Comments HEMOGLOBIN A1C ([facility]) (test code = 7.0 % 4.3-6.1 H 368) [id number] 09:01:00 Test Item Value Reference Range Interpretation Comments PARTIAL THROMBOPLASTIN TIME 68.3 seconds 22.5-36.0 H ([facility]) (test code = 760) PLATELET AGGREGATION: FUNCTION [id number] 08:44:00 Test Item Value Reference Range Interpretation Comments WEAK ADP 84 % 60-91 RESULT([facility]) (test code = 2135) PLATELET FUNCTION 60-100% indicates SCREEN INTERP ([facility]) normal platelet (test code = 2173) function [id number] Cindy Velasquez MD ([facility]) (test code = (electronic signature) 6972) PLATELET COUNT AGG 175 K/CU MM 150-450 ([facility]) (test code = 2656) Platelet Function Screen results may be falsely low with platelet counts<100,000/cu mm.POCT-GLUCOSE [id number] 08:23:00 Test Item Value Reference Range Interpretation Comments POC-GLUCOSE METER 185 mg/dL 70-110 H TESTED AT [place] [address] ([facility]) (test code = ANNYXAVIER Colon [place] 1538) [address] RAD, CHEST, 1 VIEW, NON [id number] 04:51:00Reason for exam:- >dyspneaShould this be performed [...] MDReport Verified Date/Time: 07/05/2018 04:51:23 Reading Location: [address] Reading Room B-TYPE NATRIURETIC FACTOR (BNP)2018-07-05 02:51:00 Test Item Value Reference Range Interpretation Comments B-TYPE NATRIURETIC PEPTIDE (BEAKER) 44 pg/mL 0-100 (test code = 700) [id number] 02:44:00 Test Item Value Reference Range Interpretation Comments MAGNESIUM (BEAKER) (test code = 2.3 mg/dL 1.6-2.6 627) BASIC METABOLIC [id number] 02:44:00 Test Item Value Reference Range Interpretation [...] S NOT APPLICABLE FOR DIALYSIS PATIBARRERA LARA. [id number] 02:42:00 Test Item Value Reference Range Interpretation Comments PARTIAL THROMBOPLASTIN TIME 63.2 seconds 22.5-36.0 H (BEAKER) (test code = 760) CBC W/PLT COUNT & AUTO [id number] 02:26:00 Test Item Value Reference Range Interpretation [...] % 0-1 PERCENT (BEAKER) (test code = 2805) POCT-GLUCOSE [id number] 21:12:00 Test Item Value Reference Range Interpretation Comments POC-GLUCOSE METER 204 mg/dL 70-110 H TESTED AT [facility] 6720 (BEAKER) (test code = SURAJ Colon [facility] 1538) [address] TSH/FREE T4 IF [id number] 19:43:00 Test Item Value Reference Range Interpretation Comments THYROID STIMULATING HORMONE 4.44 uIU/mL 0.35-4.94 (BEAKER) (test code = 772) LIPID [id number] 19:23:00 Test Item Value Reference Range Interpretation [...] 130-159 High 160-189 Very High >=190HEPATIC FUNCTION [id number] 19:23:00 Test Item Value Reference Range Interpretation [...] code = 72 U/L 6-55 H 347) [id number] 19:21:00 Test Item Value Reference Range Interpretation [...] mechanical heart valves.CBC W/PLT COUNT & AUTO [id number] 19:05:00 Test Item Value Reference Range Interpretation [...] % 0-1 PERCENT (BEAKER) (test code = 3025)
[2022-04-16] MEDS ORDERED: NA CHLORIDE 0.9% 1,000 ML ONE ×3 (12:37→18:50)
[2022-04-16 12:53] LABS: Absolute Lymphocytes (CBC) 1.5 K/uL (0.7-4.9); Hematocrit 52.4 % (39.6-49.0); Lymphocytes % 10.9 % (15.3-44.8); MCV 95.7 fL (80-100); MPV 7.6 fL (7.6-11.3); RBC Red Blood Cell Count 5.47 M/uL (4.33-5.43)
--- NOTE | 2022-04-16 13:04 | RAD REPORT ---
EXAM DESCRIPTION: Reynaldo Single View04/16/2022 12:52 pm CLINICAL HISTORY: Chest pain COMPARISON: 2020 FINDINGS: The lungs appear clear of acute infiltrate. The heart is mildly to moderately enlarged IMPRESSION: No acute abnormalities displayed
[2022-04-16 13:06] LABS: Protime INR 1.16
[2022-04-16 13:15] LABS: Albumin 3.9 g/dL (3.4-5.0); Bilirubin Direct 0.2 mg/dL (0-0.2); Bilirubin Total 0.9 mg/dL (0.2-1.0); Magnesium 2.3 mg/dL (1.8-2.4); Potassium 4.7 mmol/L (3.5-5.1); Protein, Total 6.9 g/dL (6.4-8.2); Troponin High Sensitivity 4.1 pg/mL (<58.9)
[2022-04-16 14:27] LABS: Urine Blood Negative (Negative); Urine Glucose 3+ (Negative); Urine Protein 1+ (Negative); Urine pH 5.5 (5.0-7.0)
[2022-04-16 14:43] LABS: Urine Bacteria None Seen /HPF (<20); Urine RBC None Seen /HPF (None Seen)
--- NOTE | 2022-04-16 14:50 | RAD REPORT ---
EXAM DESCRIPTION: CT - Chest Abd Pelvis Wo Con - 04/16/2022 2:29 pm CLINICAL HISTORY: Chest and abdominal pain COMPARISON: None TECHNIQUE: Computed axial tomography of the chest, abdomen and pelvis was obtained. Oral contrast wa s given. IV contrast was not requested. All CT scans are performed using dose optimization technique as appropriate and may include automated exposure control or mA/KV adjustment according to patient size. FINDINGS: The evaluation of mediastinum, mira, vessels and solid organs is limited secondary to the lack of IV contrast administration Minimal bilateral interstitial lung opacities. These probably are chronic. Calcified granuloma left l freya. No mediastinal or hilar lymphadenopathy is seen. A pleural effusion is not present. A pericardial effusion is not seen. Tiny right renal calculi. No hydronephrosis. Small left renal cyst. A 6 millimeter lesion extends off of the upper pole left kidney containing a calcification Liver, pancreas and adrenals grossly normal Mild splenomegaly. Normal appendix There is no evidence of diverticulitis. Mild compression deformity L1 vertebral body probably chronic IMPRESSION: Tiny nonobstructing right renal calculi 6 millimeter lesion in the upper pole left kidney containing a calcification likely benign. Followup renal ultrasound in 6 months recommended for re-evaluation
--- NOTE | 2022-04-16 16:57 | RAD REPORT ---
EXAM DESCRIPTION: CT - Head C Spine Mpr Wo Con - 04/16/2022 4:40 pm CLINICAL HISTORY: Syncope with head and neck pain COMPARISON: 2019 TECHNIQUE: Computed axial tomography of the head and cervical spine was obtained. Sagittal and coronal reconstruction was performed. All CT scans are performed using dose optimization technique as appropriate and may include automated exposure control or mA/KV adjustment according to patient size. FINDINGS: An intracranial bleed is not seen. The ventricles are normal in caliber. An extra-axial fl uid collection is not noted.Fluid within the visualized sinuses and mastoids is not seen A cervical fracture is not visualized. No dislocation is noted. IMPRESSION: No acute intracranial abnormality is seen. A cervical fracture is not visualized. If the patient continues to have symptoms to suggest intracra nial /spinal cord pathology then MRI would be recommended
--- NOTE | 2022-04-16 17:09 | EDPHYS ---
Physician Documentation [facility] Name: Drake Vallejo Age: 57 yrs Sex: Male : 1965 Arrival Date: 04/16/2022 Time: 11:58 Bed 24 Private MD: ED Physician Ken Fregoso HPI: 04/16 12:15 This 57 yrs old Male presents to ER via EMS with complaints of Chest Pain, Syncope, cp Rash. 12:15 The patient has experienced syncope, lost consciousness. Onset: The symptoms/episode cp began/occurred this morning. Duration: This was a single episode, that lasted an unknown period of time. Context: the episode(s) was witnessed, by family, , occurred at home, occurred while the patient was walking, Just prior to the episode the patient experienced dizziness, lightheadedness. Associated injury: The patient did not suffer any apparent associated injury. Associated signs and symptoms: Pertinent positives: chest pain, rash. Current symptoms: Currently, the patient is not experiencing any symptoms, the patient feels back to baseline. Patient reports after returning home this morning after being discharged from this ED for allergic rash, patient reports he was laying down, started having dizziness and got up to talk to when he awoke on the floor. Historical: - Allergies: 12:05 hydrocet; jg9 12:05 NKDA; jg9 - Home Meds: 12:05 aspirin 81 mg Oral TbEC 1 tab once daily [Active]; citalopram 20 mg tab 1 tab once jg9 daily [Active]; Glimepiride Oral [Active]; lisinopril Oral [Active]; metformin 500 mg Oral tr24 1 tab once daily [Active]; Multiple Vitamins Oral tab [Active]; - PMHx: 12:05 Bipolar disorder; CAD; Depression; Diabetes - NIDDM; Hypertension; Myocardial jg9 infarction; - PSHx: 12:05 Coronary artery bypass graft; Heart Stents; r knee SX; jg9 - Immunization history:: Adult Immunizations up to date. - Social history:: Smoking status: Patient denies any tobacco usage or history of. ROS: 12:20 Eyes: Negative for injury, pain, redness, and discharge. cp 12:20 Constitutional: Negative for body aches, chills, fever, poor PO intake. 12:20 ENT: Negative for drainage from ear(s), ear pain, sore throat, difficulty swallowing, difficulty handling secretions. 12:20 Cardiovascular: Positive for chest pain, Negative for edema, palpitations. 12:20 Respiratory: Negative for cough, shortness of breath, wheezing. 12:20 Abdomen/GI: Negative for abdominal pain, vomiting, diarrhea, constipation. 12:20 : Negative for urinary symptoms. 12:20 Skin: Positive for rash, diffusely. 12:20 Neuro: Positive for dizziness, syncope, Negative for altered mental status, headache, seizure activity, weakness. 12:20 All other systems are negative. Exam: 12:25 Constitutional: The patient appears in no acute distress, alert, awake, cp non-diaphoretic, non-toxic, well developed, well nourished, overweight 12:25 Head/Face: Normocephalic, atraumatic. cp 12:25 Eyes: Periorbital structures: appear normal, Pupils: equal, round, and reactive to light and accomodation, Extraocular movements: intact throughout, Conjunctiva: normal, no exudate, no injection, Sclera: no appreciated abnormality, Lids and lashes: appear normal, bilaterally. 12:25 ENT: External ear(s): are unremarkable, Nose: is normal, Mouth: Lips: moist, Oral mucosa: pink and intact, moist, Posterior pharynx: Airway: no evidence of obstruction, patent, swelling, is not appreciated, erythema, is not appreciated, exudate, is not appreciated. 12:25 Neck: ROM/movement: is normal, is supple, without pain, no range of motions limitations. 12:25 Chest/axilla: Palpation: is normal, no crepitus, no tenderness. 12:25 Cardiovascular: Rate: normal, Rhythm: regular, Edema: is not appreciated, JVD: is not appreciated. 12:25 Respiratory: the patient does not display signs of respiratory distress, Respirations: normal, no use of accessory muscles, no retractions, labored breathing, is not present, Breath sounds: are clear throughout, no decreased breath sounds, no stridor, no wheezing. 12:25 Abdomen/GI: Exam negative for discomfort, distension, guarding. 12:25 Back: CVA tenderness, is absent. 12:25 Skin: cellulitis, is not appreciated, rash can be described as urticarial, and is diffusely located. 12:25 Neuro: Orientation: to person, place \\T\\ time. Mentation: is normal, Cerebellar function: is grossly normal, Motor: moves all fours, Sensation: is normal. 12:30 ECG was reviewed by the Attending Physician. Vital Signs: 11:50 BP 90 / 57; Pulse 95; Resp 20 S; Temp 98.2(O); Pulse Ox 99% on R/A; Weight 105.23 kg; j9 Height 5 ft. 11 in. (180.34 cm); Pain 3/10; 12:30 BP 89 / 52; Pulse 84; Resp 17 S; Pulse Ox 96% on R/A; 9 12:45 BP 93 / 62; Pulse 85; Resp 21 S; Pulse Ox 98% ; 9 13:00 BP 93 / 61; Pulse 83; Resp 19 S; Pulse Ox 19% on R/A; j9 13:15 BP 107 / 64; Pulse 81; Resp 15 S; Pulse Ox 98% on R/A; 9 13:30 BP 102 / 71; Pulse 85; Resp 19 S; Pulse Ox 97% on R/A; jg9 14:30 BP 172 / 45; Pulse 64; Resp 17 S; Pulse Ox 94% on R/A; j9 15:00 BP 94 / 56; Pulse 85; Resp 18 S; Pulse Ox 95% on R/A; jg9 16:30 BP 97 / 65; Pulse 80; Resp 16 S; Pulse Ox 93% on R/A; jg9 11:50 Body Mass Index 32.36 (105.23 kg, 180.34 cm) [facility] [place]DM: 12:11 Patient medically screened. [facility] 17:08 Data reviewed: vital signs, nurses notes, lab test result(s), EKG, radiologic studies, cp CT scan, plain films, and as a result, I will admit patient. 04/16 12:08 Order name: Basic Metabolic Panel; Complete Time: 13:33 04/16 13:34 Interpretation: Normal except: GLUC 322; BUN 19; CRE 1.69; GFR 47. 04/16 12:08 Order name: CBC with Diff; Complete Time: 13:13 04/16 13:13 Interpretation: Normal except: WBC 14.00; RBC 5.47; HCT 52.4; IBIS% 85.6; LYM% 10.9; cp NEUT A 12.0. 04/16 12:08 Order name: LFT's; Complete Time: 13:33 04/16 12:08 Order name: Magnesium; Complete Time: 13:33 04/16 12:08 Order name: NT PRO-BNP; Complete Time: 13:33 04/16 12:08 Order name: PT-INR; Complete Time: 13:13 04/16 12:08 Order name: Troponin HS; Complete Time: 13:33 04/16 12:08 Order name: Urine Microscopic Only; Complete Time: 14:56 04/16 14:57 Interpretation: Reviewed. 04/16 12:11 Order name: COVID-19 SARS RT PCR (Document "Date of Onset" if Symptomatic); Complete cp Time: 14:56 04/16 14:57 Interpretation: Reviewed. 04/16 12:11 Order name: Strep; Complete Time: 13:33 04/16 12:11 Order name: Influenza Screen (a \\T\\ B); Complete Time: 13:59 04/16 12:11 Order name: Lactate; Complete Time: 13:33 04/16 13:34 Interpretation: Abnormal: LAC 2.7. 04/16 12:11 Order name: Procalcitonin; Complete Time: 13:59 04/16 13:26 Order name: Throat Culture EDID 04/16 12:08 Order name: XRAY Chest (1 view); Complete Time: 13:13 04/16 14:09 Order name: CT Chest Abdomen Pelvis W/O Contrast; Complete Time: 14:56 04/16 14:58 Interpretation: Report reviewed. 04/16 14:27 Order name: Urine Dipstick-Ancillary; Complete Time: 14:56 [facility] 04/16 14:56 Interpretation: Normal except: UGLUC 3+; UKET 2+; UPROT 1+. 04/16 15:14 Order name: Blood Culture Adult (2) 04/16 15:55 Order name: CT Head C Spine; Complete Time: 17:06 04/16 17:06 Interpretation: Reviewed report. 04/16 17:51 Order name: Lactate Sepsis 2 HR Follow-up; Complete Time: 20:23 EDID 04/16 20:25 Order name: DD la1 04/16 21:06 Order name: D-Dimer; Complete Time: 02:15 EDMS 04/16 23:19 Order name: Troponin High Sensitivity; Complete Time: 02:15 EDMS 04/17 03:34 Order name: CBC with Automated Diff; Complete Time: 05:39 EDMS 04/17 04:01 Order name: Comprehensive Metabolic Panel; Complete Time: 05:39 EDMS 04/17 04:01 Order name: Troponin High Sensitivity; Complete Time: 05:39 EDMS 04/17 04:01 Order name: Lipid Profile; Complete Time: 05:39 EDMS 04/17 07:27 Order name: CT EDMS 04/17 08:19 Order name: Glucose, Ancillary Testing EDMS 04/16 12:08 Order name: EKG; Complete Time: 12:09 cp 04/16 12:08 Order name: Cardiac monitoring; Complete Time: 12:11 cp 04/16 12:08 Order name: EKG - Nurse/Tech; Complete Time: 12:25 cp 04/16 12:08 Order name: IV Saline Lock; Complete Time: 12:52 cp 04/16 12:08 Order name: Labs collected and sent; Complete Time: 12:52 cp 04/16 12:08 Order name: O2 Sat Monitoring; Complete Time: 12:11 cp 04/16 12:08 Order name: Urine Dipstick-Ancillary (obtain specimen); Complete Time: 15:04 cp 04/16 20:23 Order name: Orthostatics la1 EC:30 Rate is 88 beats/min. Rhythm is regular. [place] interval is normal. QRS interval is normal. cp QT interval is normal. T waves are Inverted in lead aVR. Interpreted by me. Reviewed by me. Administered Medications: 12:45 Drug: NS 0.9% 1000 ml Route: IV; Rate: 500 ml/hr; Site: left hand; jg9 14:45 Follow up: IV Status: Completed infusion; IV Intake: 1000ml jg9 16:14 Drug: NS 0.9% 1000 ml Route: IV; Rate: 1000 ml; Site: right antecubital; jg9 18:30 Not Given (Physician Discretion): NS 0.9% 1000 ml IV at 125 ml/hr continuous cp 18:43 Drug: NS 0.9% 1000 ml Route: IV; Rate: 100 ml/hr; Site: right antecubital; jg9 Disposition Summary: 04/16/22 17:08 Hospitalization Ordered Hospitalization Status: Inpatient Admission cp Provider: Hiram Red cp Condition: Stable cp Problem: new cp Symptoms: have improved cp Bed/Room Type: Standard cp Location: [facility] ER HOLD(04/16/22 21:13) cg Room Assignment: ERHOLD-(04/16/22 21:13) cg Diagnosis - Hypotension, unspecified cp Forms: - Medication Reconciliation Form cp - SBAR form cp Signatures: Dispatcher [employer] EDMS Ken Fregoso MD MD cha Attema, Lee, CLAIMS ASSOCIATE-C CLAIMS ASSOCIATE-Cla1 Ken Foss PA PA cp Garcia, Cindy, RN RN cg Gilmore, Jennifer, RN RN jg9 Corrections: (The following items were deleted from the chart) 15:04 12:08 Oxygen Per Protocol ordered. jg9 21:13 17:08 Telemetry/MedSurg (Inpatient) [facility] 21:13 17:08 [facility] 04/18 08:27 04/16 12:15 This 57 yrs old Male presents to ER via EMS with complaints of Chest Pain, cp Syncope, Rash. 04/18 10:04/16 12:30 ECG was reviewed by the Attending Physician. [facility] 04/18 10:04/16 12:30 Rate is 88 beats/min. Rhythm is regular. [place] interval is normal. QRS cp interval is normal. QT interval is normal. T waves are Inverted in lead aVR. Interpreted by me. Reviewed by me. 04/18 10:04/17 12:15 This 57 yrs old Male presents to ER via EMS with complaints of Chest Pain, cp Syncope, Rash. 04/18 10:04/17 12:15 The patient has experienced syncope, lost consciousness, [facility] 04/18 10:04/17 12:15 Onset: The symptoms/episode began/occurred this morning, [facility] 04/18 10:04/17 12:15 Duration: This was a single episode, that lasted an unknown period of time, [facility] 04/18 10:04/17 12:15 Context: the episode(s) was witnessed, by family, , occurred at home, cp occurred while the patient was walking, Just prior to the episode the patient experienced dizziness, lightheadedness, cp 04/18 10:04/17 12:15 Associated injury: The patient did not suffer any apparent associated cp injury, cp 04/18 12:15 Associated signs and symptoms: Pertinent positives: chest pain, rash, cp cp 04/18 10:04/17 12:15 Current symptoms: Currently, the patient is not experiencing any symptoms, cp the patient feels back to baseline, cp 04/18 12:15 Patient reports after returning home this morning after being discharged cp from this ED for allergic rash, patient reports he was laying down, started having dizziness and got up to talk to when he awoke on the floor. cp 04/18 12:25 Constitutional: The patient appears in no acute distress, alert, awake, cp non-diaphoretic, non-toxic, well developed, well nourished, overweight cp 04/18 10:04/17 12:20 Constitutional: Negative for body aches, chills, fever, poor PO intake, cp cp 04/18 10:04/17 12:20 Eyes: Negative for injury, pain, redness, and discharge, cp cp 04/18 10:04/17 12:20 ENT: Negative for drainage from ear(s), ear pain, sore throat, difficulty cp swallowing, difficulty handling secretions, cp 04/18 10:04/17 12:20 Cardiovascular: Positive for chest pain, Negative for edema, palpitations, cp cp 04/18 10:04/17 12:20 Respiratory: Negative for cough, shortness of breath, wheezing, cp cp 04/18 10:04/17 12:20 Abdomen/GI: Negative for abdominal pain, vomiting, diarrhea, constipation, cp cp 04/18 10:04/17 12:20 Neuro: Positive for dizziness, syncope, Negative for altered mental status, cp headache, seizure activity, weakness, cp 04/18 12:20 : Negative for urinary symptoms, cp cp 04/18 10:04/17 12:20 Skin: Positive for rash, diffusely, cp cp 04/18 10:04/17 12:20 All other systems are negative, cp cp 04/18 11:25 04/17 12:30 ECG was reviewed by the Attending Physician. cp cp 04/18 11:04/17 12:30 Rate is 88 beats/min. Rhythm is regular. [place] interval is normal. QRS cp interval is normal. QT interval is normal. T waves are Inverted in lead aVR. Interpreted by me. Reviewed by me. cp 04/18 11:04/17 12:25 Head/Face: Normocephalic, atraumatic. cp cp 04/18 11:04/17 12:25 Eyes: Periorbital structures: appear normal, Pupils: equal, round, and cp reactive to light and accomodation, Extraocular movements: intact throughout, Conjunctiva: normal, no exudate, no injection, Sclera: no appreciated abnormality, Lids and lashes: appear normal, bilaterally, cp 04/18 11:04/17 12:25 ENT: External ear(s): are unremarkable, Nose: is normal, Mouth: Lips: cp moist, Oral mucosa: pink and intact, moist, Posterior pharynx: Airway: no evidence of obstruction, patent, swelling, is not appreciated, erythema, is not appreciated, exudate, is not appreciated, cp 04/18 11:04/17 12:25 Neck: ROM/movement: is normal, is supple, without pain, no range of motions cp limitations, cp 04/18 12:25 Chest/axilla: Palpation: is normal, no crepitus, no tenderness, cp cp 04/18 11:04/17 12:25 Cardiovascular: Rate: normal, Rhythm: regular, Edema: is not appreciated, cp JVD: is not appreciated, cp 04/18 11:04/17 12:25 Respiratory: the patient does not display signs of respiratory distress, cp Respirations: normal, no use of accessory muscles, no retractions, labored breathing, is not present, Breath sounds: are clear throughout, no decreased breath sounds, no stridor, no wheezing, cp 04/18 11:04/17 12:25 Abdomen/GI: Exam negative for discomfort, distension, guarding, cp cp 04/18 11:04/17 12:25 Back: CVA tenderness, is absent, cp cp 04/18 11:04/17 12:25 Skin: cellulitis, is not appreciated, rash can be described as urticarial, cp and is diffusely located, cp 04/18 11:25 08 12:25 Neuro: Orientation: to person, place \\T\\ time. Mentation: is normal, cp Cerebellar function: is grossly normal, Motor: moves all fours, Sensation: is normal, cp
--- NOTE | 2022-04-16 17:09 | ER ---
Nurse's Notes [facility] Name: Drake Vallejo Age: 57 yrs Sex: Male : 1965 Arrival Date: 04/16/2022 Time: 11:58 Bed 24 Private MD: Diagnosis: Hypotension, unspecified Presentation: 04/16 11:50 Chief complaint: EMS states: Patient was seen here in the ER this morning for a rash jg9 and some mild chest pain, treated with some benadryl, sterioids and sent home. Patient reports he went straight home and laid down in bed not long after about 545 patient was up getting his up for work when he went down stairs he started feeling lightheaded and had to grab onto the wall, next thing he knew he was being talked to by his but he was on the floor, patient reports hitting his head but currently denied any pain or discomfort and there are no obvious injuries noted. Patient also reports that the rash in now on the lower half of his body and seems to be coming back on the abdomen/upper body. Patient administered 10 mg reglan IV, 0.4 mg nitro x1, 0.3mL epi, 324 baby aspirin, and 400 mL fluid bolus. Coronavirus screen: Vaccine status: Patient reports receiving the 2nd dose of the covid vaccine. Ebola Screen: Patient negative for fever greater than or equal to 101.5 degrees Fahrenheit, and additional compatible Ebola Virus Disease symptoms Patient denies exposure to infectious person. Patient denies travel to an Ebola-affected area in the 21 days before illness onset. 11:50 Method Of Arrival: EMS: [facility] jg9 11:50 Acuity: TERI 3 jg9 11:50 Initial Sepsis Screen: Does the patient meet any 2 criteria? No. Patient's initial jg9 sepsis screen is negative. Does the patient have a suspected source of infection? No. Patient's initial sepsis screen is negative. Risk Assessment: Do you want to hurt yourself or someone else? Patient reports no desire to harm self or others. Onset of symptoms is unknown. Triage Assessment: 11:50 General: Appears in no apparent distress. Behavior is calm, cooperative. Pain: jg9 Complains of pain in chest, lateral aspect of right knee, right ankle, posterior aspect of right knee, right Achilles, medial aspect of right knee, right knee, anterior aspect of right ankle, lateral aspect of left knee, left lateral ankle, posterior aspect of left knee, left Achilles, medial aspect of left knee, left medial ankle, left knee and anterior aspect of left ankle Pain currently is 3 out of 10 on a pain scale. Cardiovascular: Reports chest pain, Heart tones S1 S2 Capillary refill < 3 seconds Pulses are 3+ in right radial artery and left radial artery. Historical: - Allergies: 12:05 hydrocet; jg9 12:05 NKDA; jg9 - Home Meds: 12:05 aspirin 81 mg Oral TbEC 1 tab once daily [Active]; citalopram 20 mg tab 1 tab once jg9 daily [Active]; Glimepiride Oral [Active]; lisinopril Oral [Active]; metformin 500 mg Oral tr24 1 tab once daily [Active]; Multiple Vitamins Oral tab [Active]; - PMHx: 12:05 Bipolar disorder; CAD; Depression; Diabetes - NIDDM; Hypertension; Myocardial jg9 infarction; - PSHx: 12:05 Coronary artery bypass graft; Heart Stents; r knee SX; jg9 - Immunization history:: Adult Immunizations up to date. - Social history:: Smoking status: Patient denies any tobacco usage or history of. Screenin:07 Abuse screen: Denies threats or abuse. Denies injuries from another. Nutritional jg9 screening: No deficits noted. Tuberculosis screening: No symptoms or risk factors identified. Fall Risk Fall in past 12 months (25 points). Assessment: 11:50 Pain: Pain does not radiate. Pain began 2 hours ago. jg9 12:00 Reassessment: No changes from previously documented assessment. Patient and/or family jg9 updated on plan of care and expected duration. Pain level reassessed. Patient is alert, oriented x 3, equal unlabored respirations, skin warm/dry/pink. 13:00 Reassessment: Patient appears in no apparent distress at this time. Patient and/or jg9 family updated on plan of care and expected duration. Pain level reassessed. Patient is alert, oriented x 3, equal unlabored respirations, skin warm/dry/pink. 14:00 Reassessment: No changes from previously documented assessment. Patient and/or family jg9 updated on plan of care and expected duration. Pain level reassessed. Patient is alert, oriented x 3, equal unlabored respirations, skin warm/dry/pink. 15:00 Reassessment: Patient appears in no apparent distress at this time. No changes from j9 previously documented assessment. Patient and/or family updated on plan of care and expected duration. Pain level reassessed. Patient is alert, oriented x 3, equal unlabored respirations, skin warm/dry/pink. 16:00 Reassessment: No changes from previously documented assessment. Patient and/or family jg9 updated on plan of care and expected duration. Pain level reassessed. Patient is alert, oriented x 3, equal unlabored respirations, skin warm/dry/pink. Vital Signs: 11:50 BP 90 / 57; Pulse 95; Resp 20 S; Temp 98.2(O); Pulse Ox 99% on R/A; Weight 105.23 kg; jg9 Height 5 ft. 11 in. (180.34 cm); Pain 3/10; 12:30 BP 89 / 52; Pulse 84; Resp 17 S; Pulse Ox 96% on R/A; jg9 12:45 BP 93 / 62; Pulse 85; Resp 21 S; Pulse Ox 98% ; jg9 13:00 BP 93 / 61; Pulse 83; Resp 19 S; Pulse Ox 19% on R/A; jg9 13:15 BP 107 / 64; Pulse 81; Resp 15 S; Pulse Ox 98% on R/A; jg9 13:30 BP 102 / 71; Pulse 85; Resp 19 S; Pulse Ox 97% on R/A; jg9 14:30 BP 172 / 45; Pulse 64; Resp 17 S; Pulse Ox 94% on R/A; jg9 15:00 BP 94 / 56; Pulse 85; Resp 18 S; Pulse Ox 95% on R/A; jg9 16:30 BP 97 / 65; Pulse 80; Resp 16 S; Pulse Ox 93% on R/A; jg9 11:50 Body Mass Index 32.36 (105.23 kg, 180.34 cm) jg9 ED Course: 11:50 Maintain EMS IV. Dressing intact. Good blood return noted. Site clean \T\ dry. Gauge \T\ jg 9 site: 20 left hand. 11:55 Arm band placed on right wrist. jg9 11:58 Patient arrived in ED. jg9 11:58 Seu Reyes, RAINA is Primary Nurse. jg9 12:05 Ken Foss PA is PHCP. cp 12:05 Ken Fregoso MD is Attending Physician. cp 12:08 Triage completed. jg9 12:09 Patient has correct armband on for positive identification. Client placed on continuous jg9 cardiac and pulse oximetry monitoring. NIBP monitoring applied. 12:09 Patient maintains SpO2 saturation greater than 95% on room air. jg9 12:54 XRAY Chest (1 view) In Process Unspecified. EDMS 14:31 CT Chest Abdomen Pelvis W/O Contrast In Process Unspecified. EDMS 16:42 CT Head C Spine In Process Unspecified. EDMS 17:07 Hiram Red MD is Hospitalizing Provider. cp 17:15 Second set of blood cultures drawn Drawn from LAC. jw7 20:10 Primary Nurse role handed off by Sue Reyes RN ja4 20:10 Stevo Javier, RAINA is Primary Nurse. ja4 20:46 DD Sent. ja4 21:06 Notified ED physician of a critical lab result(s). D-dimer 7041. ll3 04/17 07:00 Patient admitted, IV remains in place. aa5 08:30 Primary Nurse role handed off by Stevo Javier, RAINA jl7 Administered Medications: 04/16 12:45 Drug: NS 0.9% 1000 ml Route: IV; Rate: 500 ml/hr; Site: left hand; jg9 14:45 Follow up: IV Status: Completed infusion; IV Intake: 1000ml jg9 16:14 Drug: NS 0.9% 1000 ml Route: IV; Rate: 1000 ml; Site: right antecubital; jg9 18:30 Not Given (Physician Discretion): NS 0.9% 1000 ml IV at 125 ml/hr continuous cp 18:43 Drug: NS 0.9% 1000 ml Route: IV; Rate: 100 ml/hr; Site: right antecubital; jg9 Intake: 14:45 IV: 1000ml; Total: 1000ml. jg9 Outcome: 17:08 Decision to Hospitalize by Provider. cp 20:10 Admitted to ER Hold. Please see [facility] for further documentation. jaJoseph 08/20 11:23 Patient left the ED. aa5 Signatures: Dispatcher [employer] EDAni Gonzales RN RN aa5 Ken Foss PA PA cp Leal, Jahala RN RN jl7 Yaneth Villa RN RN ll3 Sue Reyes RN RN jg9 Sanjuana Geronimo7 Stevo Javier RN RN ja4 Corrections: (The following items were deleted from the chart) 04/16 16:33 13:00 Reassessment: Patient appears in no apparent distress at this time. Patient jg9 and/or family updated on plan of care and expected duration. Pain level reassessed. Patient is alert, oriented x 3, equal unlabored respirations, skin warm/dry/pink. jg9 17:46 14:00 IV Status: Completed infusion; IV Intake: 1000ml jg9 jg9 04/17 11:40 11:40 Patient left the ED. aa5 aa5
--- NOTE | 2022-04-16 20:26 | P.HP ---
Certification for Inpatient Patient admitted to: Observation With expected LOS: <2 Midnights Patient will require the following post-hospital care: None Practitioner: I am a practitioner with admitting privileges, knowledge of patient current condition, hospital course, and medical plan of care. Services: Services provided to patient in accordance with Admission requirements found in Title 42 Section 412.3 of the Code of Federal Regulations Patient History Date of Service: 04/16/22 Reason for admission: Chest pain, syncope History of Present Illness: 57-year-old male with history of CAD status post CABG, atrial fibrillation not on chronic anticoagulation therapy, zes-ilmtigv-qudctandp diabetes presented to the emergency department for syncope. He was seen earlier this morning in the emergency department for a rash, his rash was deemed likely to be allergic in nature and he was given IV steroids, his rash has since dissipated he went home and later in the morning began experiencing chest pressure, he then stood up and had a syncopal episode with loss of consciousness and hit his head on the ground. He was evaluated in the emergency department his labs were significant for creatinine 1.69 GFR 47 glucose 222 initial lactic acid 2.7 after IV fluids down to 2.1 procalcitonin 0.12 white blood cell count 14 SIRS criteria are present including leukocytosis, initial heart rate 90. No source of infection identified or suspected, lactic acid 2.7 down to 2.1 after some IV fluids. Patient blood pressure regiment relatively low throughout the ER stay when I saw him in the exam room his blood pressure was 110 systolic. We will admit for further evaluation and management of syncope, chest pain. Allergies No Known Allergies Allergy (Verified 06/28/20 23:33) Home Medications: Multivitamin [Multivitamins] 1 tab PO DAILY 02/15/16 Nitroglycerin [Nitrostat*] 0.4 mg SL UD PRN #1 bottle 02/18/16 Glimepiride [Amaryl*] 2 mg PO DAILY 07/03/18 Aspirin [Adult Aspirin] 81 mg PO DAILY 08/12/18 Ascorbic Acid [Vitamin C] 1,000 mg PO DAILY 01/10/19 Lisinopril [Zestril] 2.5 mg PO DAILY 01/10/19 Metformin HCl [Glucophage] 500 mg PO DAILY 01/10/19 Furosemide [Lasix] 40 mg PO DAILY PRN 06/28/20 Atorvastatin Calcium [Lipitor] 40 mg PO BEDTIME #30 tab 06/29/20 Docosahexanoic AC/Epa [Fish Oil 1,000 MG CAP] 1 cap PO BID #60 cap 06/29/20 - Past Medical/Surgical History Diabetic: Yes -: CAD, CABG, multiple stents x7 -: Hypertension -: Diabetes mellitus type 2 -: Hyperlipidemia -: tobacco use -: BPH -: SLEEP APNEA -: A. fib -: Cardiac catheterization with stent placement times 7 -: Right knee repair -: CABG Psychosocial/ Personal History: Patient is . He has 4 children. 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 moist/pink, EOMI, Sclerae nonicteric Neck: Supple, 2+ carotid pulse no bruit, No LAD, Without JVD or thyroid abnormality Respiratory: Clear to auscultation bilaterally, Normal air movement Cardiovascular: Regular rate/rhythm, Normal S1 S2 Gastrointestinal: Normal bowel sounds, No tenderness Musculoskeletal: No tenderness Integumentary: No rashes Neurological: Normal gait, Normal speech, Normal strength at 5/5 x4 extr, Normal tone, Normal affect Lymphatics: No axilla or inguinal lymphadenopathy - Studies Laboratory Data (last 24 hrs) 04/16/22 12:35: PT 12.8 H, INR 1.16 04/16/22 12:35: WBC 14.00 H, Hgb 17.9, Hct 52.4 H, Plt Count 159 04/16/22 12:35: Sodium 138, Potassium 4.7, BUN 19 H, Creatinine 1.69 H, Glucose 322 H, Magnesium 2.3, Total Bilirubin 0.9, AST 20, ALT 54, Alkaline Phosphatase 82 Microbiology Data (last 24 hrs): 04/16/22 12:45 Nasopharnyx Influenza Type A Antigen Screen - Final 04/16/22 12:45 Nasopharnyx Influenza Type B Antigen Screen - Final 04/16/22 12:45 Throat Group A Streptococcus Rapid Screen - Final Assessment and Plan - Plan Assessment: Chest pain history CAD status post CABG rule out ACS Syncope Diabetes mellitus type 0snn-[id number]-[id number] with hyperglycemia Atrial fibrillation not on chronic anticoagulation XU Incidental CT finding 6 mm lesion left upper pole of the kidney containing calcification Plan: Chest pain history CAD status post CABG rule out ACS: Trend troponins, monitor on telemetry, cardiology consult in place. Initial troponin negative EKG without ST elevations we will also obtain D-dimer given chest pain, syncope, hypotension. If elevated patient will likely require VQ scan unless his renal function improves throughout the evening. 2/4 SIRS criteria present with HR>90, leukocytosis but no source of infection identified or suspected. Not septic at this time. Syncope: Occurred with changing positions from seated to standing will obtain orthostatic vital signs. Blood pressure soft as well patient with recent history allergic reaction possibly some systemic vasodilatation contributing. Will need to rule out PE patient had CT scan of his head/neck/chest abdomen pelvis which was negative for acute findings in the emergency department. Diabetes mellitus type [id number] with hyperglycemia: ACH S Accu- Chek, sliding scale insulin. Atrial fibrillation not on chronic anticoagulation: Patient reports that he wore a Holter monitor in the past and was told by his accident examiner that he had atrial fibrillation and he was placed on amiodarone, he is not on any blood thinners. His [id number] score is 1 given his diabetes he reports that he takes lisinopril only for renal protective reasons. Continue aspirin, monitor on telemetry, continue amiodarone. XU: Appears dry, continue IV fluids overnight recheck renal function the morning if there is no significant provement we will consult nephrology. Hold lisinopril. Incidental CT finding 6 mm lesion left upper pole of the kidney containing calcification: Patient made aware radiology recommends 6-month follow-up ultrasound this was discussed with patient. DVT PPX:lovenox Code status:Full Discharge Plan: Home Plan to discharge in: 24 Hours - Advance Directives Does patient have a Living Will: No Does patient have a Durable POA for Healthcare: No - Code Status/Comfort Care Code Status Assessed: Yes (Full code) Critical Care: No Time Spent Managing Pts Care (In Minutes): 70
[2022-04-16] MEDS: INSULIN -REGULAR HUMAN 50 UNIT/0.5 ML ML SQ SCH (22:19)
[2022-04-16] MEDS ORDERED: ONDANSETRON 4 MG/2 ML VIAL IV PRN (22:19)
[2022-04-16] MEDS: NA CHLORIDE 0.9% 1,000 ML IV SCH ×2 (22:19)
[2022-04-16] MEDS: AMIODARONE HCL 200 MG TAB PO SCH (22:19)
[2022-04-16 23:28] VITALS: BMI 32.3
[2022-04-17] MEDS ORDERED: DIPHENHYDRAMINE 50 MG/ML VIAL IV ONE (00:02)
[2022-04-17] MEDS ORDERED: DIPHENHYDRAMINE 50 MG/ML VIAL ONE (00:13)
[2022-04-17] MEDS ORDERED: NA CHLORIDE 0.9% 500 ML IV ONE (02:48)
[2022-04-17] MEDS: Enoxaparin 120 MG/0.8 ML SYR SQ SCH ×2 (02:49→09:00)
[2022-04-17] MEDS ORDERED: ENOXAPARIN 60 MG/0.6 ML SQ ONE (03:00)
[2022-04-17] MEDS ORDERED: ENOXAPARIN 80 MG/0.8 ML SQ ONE (03:03)
[2022-04-17] MEDS ORDERED: NA CHLORIDE 0.9% 500 ML ONE (03:04)
[2022-04-17] MEDS ORDERED: NA CHLORIDE 0.9% 1,000 ML ONE (03:04)
[2022-04-17] MEDS ORDERED: ENOXAPARIN 30 MG/0.3 ML SQ ONE (03:04)
[2022-04-17] MEDS ORDERED: hydrOXYzine HCL 25 MG TAB PO PRN (03:13)
[2022-04-17] MEDS: predniSONE 20 MG TAB PO SCH ×2 (03:13→10:22)
[2022-04-17] MEDS ORDERED: hydrOXYzine HCL 25 MG TAB ONE (03:30)
[2022-04-17 03:31] LABS: Absolute Lymphocytes (CBC) 1.1 K/uL (0.7-4.9); Hematocrit 43.7 % (39.6-49.0); Lymphocytes % 11.3 % (15.3-44.8); MCV 96.8 fL (80-100); MPV 8.1 fL (7.6-11.3); RBC Red Blood Cell Count 4.51 M/uL (4.33-5.43)
[2022-04-17] MEDS ORDERED: predniSONE 20 MG TAB ONE ×2 (03:31→10:22)
[2022-04-17 04:01] LABS: Albumin 3.3 g/dL (3.4-5.0); Bilirubin Total 0.6 mg/dL (0.2-1.0); Potassium 4.5 mmol/L (3.5-5.1); Troponin High Sensitivity 3.2 pg/mL (<58.9)
--- NOTE | 2022-04-17 07:26 | RAD REPORT ---
EXAM DESCRIPTION: CT - Chest For Pe Angio - 04/17/2022 4:48 am CLINICAL HISTORY: R/O PE, SOB, CP elevated DD COMPARISON: Chest Abd Pelvis Wo Con dated 04/16/2022 TECHNIQUE: Dynamically enhanced 3 mm thick images of the chest were obtained during administration o f approximately 150mL Isovue 370 IV contrast. Coronal and oblique MIP reconstruction images were gene rated and reviewed. Exam utilizes a protocol to evaluate the pulmonary arterial tree. All CT scans are performed using dose optimization technique as appropriate and may include automated exposure control or mA/KV adjustment according to patient size. FINDINGS: Pulmonary arterial tree contrast density is not optimal but is sufficient for exclusion of any significant pulmonary embolic disease. There are no pulmonary emboli down to the segmental branc h level. Subsegmental branches are more difficult to evaluate given the contrast density. No suspicio n for pulmonary embolic disease noted. The aorta as imaged shows no acute or suspicious finding. Mesenteric and renal arteries are imaged an d unremarkable as well. No pericardial thickening or effusion. No cardiomegaly. No infiltrate or mass in the lung parenchyma. Punctate granuloma seen in the lateral lower left lung field. No pleural effusion or pleural thickening. No mediastinal or hilar suspicious masses. No chest wall masses or abnormal axillary lymphadenopathy. Small hiatal hernia is present. At the upper abdomen is not sufficiently visualized to allow assessm ent. Final report was delayed due to technical issues with the overnight service. IMPRESSION: No pulmonary emboli identified. No other significant or suspicious findings.
[2022-04-17] MEDS: INSULIN -REGULAR HUMAN 50 UNIT/0.5 ML ML SQ SCH (07:30)
--- NOTE | 2022-04-17 08:58 | EKG ---
Test Date: 2022-04-16 Test Time: 05:04:27 Studio Operation Engineer: CELY MEASUREMENT RESULTS: Intervals: Rate: 91 LA: 152 QRSD: 102 QT: 374 QTc: 460 [place]: P: 43 LA: 152 QRS: -62 T: 54 INTERPRETIVE STATEMENTS: Normal sinus rhythm Left axis deviation Incomplete right bundle branch block Anterior infarct, age undetermined Abnormal ECG Compared to ECG 05/12/2021 06:44:17 Left-axis deviation now present Myocardial infarct finding now present Ventricular premature complex(es) no longer present Left ventricular hypertrophy no longer present ST (T wave) deviation no longer present Prolonged QT interval no longer present Electronically Signed On 04-17-22 08:56:04 CDT by Ferny Willoughby
[2022-04-17] MEDS ORDERED: ASPIRIN EC 81 MG TAB PO SCH (09:00)
[2022-04-17] MEDS ORDERED: AMIODARONE HCL 200 MG TAB ONE (10:22)
[2022-04-17] MEDS: AMIODARONE HCL 200 MG TAB PO SCH (10:22)
[2022-04-17] MEDS ORDERED: ASPIRIN EC 81 MG TAB PO ONE (10:22)
[2022-04-17] MEDS ORDERED: ENOXAPARIN 100 MG/ML SYR SQ ONE (10:24)
[2022-04-17 10:28] VITALS: TEMP 98.5
[2022-04-17 12:03] VITALS: BP 97/65; O2SAT 93
--- NOTE | 2022-04-17 18:41 | P.DS ---
Admission Date: 04/16/22 Discharge Date: 04/17/22 Disposition: ROUTINE DISCHARGE Discharge Condition: GOOD Reason for Admission: Chest pain, syncope Consultations: Cardiology - Dr. Willoughby Brief History of Present Illness: 57-year-old male with history of CAD status post CABG, atrial fibrillation not on chronic anticoagulation therapy, upt-jpvsthe-vsfkhrprc diabetes presented to the emergency department for syncope. He was seen earlier this morning in the emergency department for a rash, his rash was deemed likely to be allergic in nature and he was given IV steroids, his rash has since dissipated he went home and later in the morning began experiencing chest pressure, he then stood up and had a syncopal episode with loss of consciousness and hit his head on the ground. He was evaluated in the emergency department his labs were significant for creatinine 1.69 GFR 47 glucose 222 initial lactic acid 2.7 after IV fluids down to 2.1 procalcitonin 0.12 white blood cell count 14 SIRS criteria are present including leukocytosis, initial heart rate 90. No source of infection identified or suspected, lactic acid 2.7 down to 2.1 after some IV fluids. Patient blood pressure regiment relatively low throughout the ER stay when I saw him in the exam room his blood pressure was 110 systolic. We will admit for further evaluation and management of syncope, chest pain. Hospital Course: Problem list Chest pain h/o CAD s/p CABG rule out ACS Syncope dermatitis, suspect allergic/contact Diabetes mellitus type 0dff-alqtngs-kjsugcbst with hyperglycemia Atrial fibrillation not on chronic anticoagulation XU Incidental CT finding 6 mm lesion left upper pole of the kidney containing calcification Cardiology cardiology Patient presented after syncopal episode after standing up. He was recently discharged from the ER - seen and treated for a new rash, suspected allergic reaction. Possibly milkweed while he was mowing or ate new peppers. He was found to have low blood pressure, a mild elevation in his creatinine and elevated d-dimer. CT chest was negative for acute process / no PE. Cardiology was consulted and deemed patient stable for discharge home from cardiac standpoint. His rash improved with steroid treatment. CT head was negative for any acute findings. Discharged home to continue steroids and antibiotic that was prescribed yesterday. Follow up with PCP within 3-5 days Follow up with Dr. Willoughby in the next few weeks. Vital Signs/Physical Exam: Temp Pulse Resp BP Pulse Ox 98.5 F 80 16 97/65 95 08/20/22 08:00 04/17/22 12:01 04/17/22 12:01 04/17/22 12:01 04/17/22 08:00 General: Alert, In no apparent distress, Oriented x3 HEENT: EOMI, Sclerae nonicteric Neck: Supple, No LAD Respiratory: Clear to auscultation bilaterally, Diminished Cardiovascular: No edema, Regular rate/rhythm Gastrointestinal: Soft and benign, Non-distended, No tenderness Musculoskeletal: No contractures, No tenderness Integumentary: No rashes, No significant lesion Neurological: Normal speech, Normal strength at 5/5 x4 extr, Normal affect Laboratory Data at Discharge: WBC 9.90 K/uL (4.3-10.9) D 04/17/22 03:05 Hgb 14.7 g/dL (13.6-17.9) D 04/17/22 03:05 Hct 43.7 % (39.6-49.0) D 04/17/22 03:05 Plt Count 122 K/uL (152-406) L D 04/17/22 03:05 PT 12.8 SECONDS (9.5-12.5) H 04/16/22 12:35 INR 1.16 04/16/22 12:35 Sodium 140 mmol/L (136-145) 04/17/22 03:05 Potassium 4.5 mmol/L (3.5-5.1) 04/17/22 03:05 BUN 20 mg/dL (7-18) H 04/17/22 03:05 Creatinine 1.10 mg/dL (0.55-1.3) 04/17/22 03:05 Glucose 166 mg/dL (74-106) H 04/17/22 03:05 Magnesium 2.3 mg/dL (1.8-2.4) 04/16/22 12:35 Total Bilirubin 0.6 mg/dL (0.2-1.0) 04/17/22 03:05 AST 16 U/L (15-37) 04/17/22 03:05 ALT 44 U/L (12-78) 04/17/22 03:05 Alkaline Phosphatase 71 U/L (45-117) 04/17/22 03:05 Triglycerides 95 mg/dL (<150) 04/17/22 03:05 Cholesterol 104 mg/dL (<200) 04/17/22 03:05 HDL Cholesterol 48 mg/dL (40-60) 04/17/22 03:05 Cholesterol/HDL Ratio 2.17 04/17/22 03:05 Home Medications: Multivitamin [Multivitamins] 1 tab PO DAILY 02/15/16 Glimepiride [Amaryl*] 2 mg PO DAILY 07/03/18 Aspirin [Adult Aspirin] 81 mg PO DAILY 08/12/18 Metformin HCl [Glucophage] 500 mg PO DAILY 01/10/19 Amiodarone HCl [Cordarone*] 200 mg PO DAILY 04/17/22 Empagliflozin [Jardiance] 25 mg PO 1X 04/17/22 Levothyroxine [Synthroid*] 75 mcg PO DAILY 04/17/22 Lisinopril [Zestril] 10 mg PO DAILY 04/17/22 Rosuvastatin [Crestor*] 40 mg PO DAILY 04/17/22 Smz./Tmp. [Bactrim Ds 800 MG/160 MG] 1 tab PO BID 10 Days #20 tab 04/17/22 Tamsulosin [Flomax*] 0.4 mg PO BEDTIME 04/17/22 predniSONE [Prednisone] 20 mg PO SEECOM 7 Days #15 tab 04/17/22 New Medications: Smz./Tmp. [Bactrim Ds 800 MG/160 MG] 1 tab PO BID 10 Days #20 tab predniSONE [Prednisone] 20 mg PO SEECOM 7 Days #15 tab Physician Discharge Instructions: Patient presented after syncopal episode after standing up. He was recently discharged from the ER - seen and treated for a new rash, suspected allergic reaction. He was found to have low blood pressure, a mild elevation in his creatinine and elevated d-dimer. CT chest was negative for acute process / no PE. Cardiology was consulted and deemed patient stable for discharge home from cardiac standpoint. His rash improved with steroid treatment. CT head was negative for any acute findings. Discharged home to continue steroids and antibiotic that was prescribed yesterday. Follow up with PCP within 3-5 days Follow up with Dr. Willoughby in the next few weeks. Followup: NONE,NONE [Primary Care Provider] - Time spent managing pt's care (in minutes): 45
--- NOTE | 2022-04-18 11:04 | CON ---
Date of Consultation: 04/17/2022 Reason For Consultation: Chest pain and syncope. History Of Present Illness: Mr. Vallejo is 57. Has a history of CABG with KINNEY to the LAD. He has a hi story of dyslipidemia, diabetes, and hypertension as well as paroxysmal atrial fibrillation that has resolved. After having 2 days of diarrhea and a rash, he had a syncopal episode that has resolved. Episodes of syncope occurred when he was standing up. Denied any chest pain after he woke up from hi s syncope. Denied any nausea, vomiting, diaphoresis, PND, orthopnea, pedal edema, palpitations, feve r or chills. He is already ruled out for an GA. His EKG is normal. Chest x-ray is normal. CT darling ogram of the chest was normal. CT of the abdomen was normal. Procalcitonin elevated. Creatinine wa s elevated at 1.69. White count was 14,000. Glucose was 322. D-dimer was 7903. Past Medical History: As stated above. Allergies: NONE. Review of Systems: Negative. Social History: Negative. Family History: Negative. Medications: At home include aspirin, Lipitor, Lasix, amiodarone, glimepiride, lisinopril, and metfo rmin. Physical Examination: Vital Signs: Stable, afebrile. HEENT: Negative. Neck: Supple with no bruit. Chest: Clear. Cardiac: Normal. Abdomen: Benign. Extremities: Revealed no clubbing, cyanosis, or edema. Diagnostic Data: As stated earlier. Impression And Plan: 1.Syncope secondary to orthostatic hypotension from dehydration, probably from his diarrhea. He had elevated creatinine, elevated white count, elevated procalcitonin all secondary with a viral infecti on and gastroenteritis, which is probably the cause of his syncope. I would hydrate him, send him ho me. Continue hydration. Continue his home medication. Have him hold his Lasix for few days. He wi ll see me in the office in the near future. I will have him do another echo and event monitor to rul e out any arrhythmias. 2.His other problems include atrial fibrillation that is sinus rhythm now, on amiodarone. 3.Coronary artery disease, status post KINNEY to the LAD. 4.Dyslipidemia, on Lipitor. 5.Diabetes, poorly controlled. 6.Hypertension, well controlled. NB/MODL Voice ID: [id number] Report ID: [id number]
== END 2022-04-17 11:23 | disposition home or self-care (01) ==
LOC: ER 11:51 → ERHOLD 20:09
PROVIDERS: ADMIT Hospitalist; ATTEND Hospitalist
DX: R07.9 Chest pain, unspecified (principal); I95.1 Orthostatic hypotension; N17.9 Acute kidney failure, unspecified; E86.0 Dehydration; B34.9 Viral infection, unspecified; K52.9 Noninfective gastroenteritis and colitis, unspecified; I48.0 Paroxysmal atrial fibrillation; I25.10 Atherosclerotic heart disease of native coronary artery without angina pectoris; E11.65 Type 2 diabetes mellitus with hyperglycemia; I10 Essential (primary) hypertension; L30.9 Dermatitis, unspecified; E78.5 Hyperlipidemia, unspecified; N28.9 Disorder of kidney and ureter, unspecified; G47.30 Sleep apnea, unspecified; N40.0 Benign prostatic hyperplasia without lower urinary tract symptoms; F31.9 Bipolar disorder, unspecified; F32.A Depression, unspecified; I25.2 Old myocardial infarction; Z20.822 Contact with and (suspected) exposure to COVID-19; Z95.1 Presence of aortocoronary bypass graft; Z95.5 Presence of coronary angioplasty implant and graft; Z79.82 Long term (current) use of aspirin; Z79.84 Long term (current) use of oral hypoglycemic drugs; Z79.899 Other long term (current) drug therapy; Z82.49 Family history of ischemic heart disease and other diseases of the circulatory system; Z82.3 Family history of stroke; Z83.3 Family history of diabetes mellitus; Z82.5 Family history of asthma and other chronic lower respiratory diseases; Z80.9 Family history of malignant neoplasm, unspecified
CPT/HCPCS: 96361; 93005; 87040 ×2; 87070; 85025 ×2; 80048; 36415; 83735; 85610; 80061; 82947; 85379; 80076; 87081; 83605 ×2; 84484 ×3; 80053; 84145; 83880; 87804 ×2; 70450; 71250; 72125; 71275; 74176; 71045; 96360; 99285; U0003; Q9967; J1200; J7512 ×2; J1650 ×2; J7040; J7030 ×4; G0378 ×3; 81003; 81015

== ENCOUNTER 2022-10-12 09:18 | Emergency (ER) | payer BC ==
--- OUTSIDE RECORDS SUMMARY | 2022-10-12 09:26 | XMS REPORT | Continuity of Care Document ---
:1965 Author Organization [facility] t Address [address] [place] [address] Care Team Providers Name Role Phone MALLORY LEBLANC Primary Care Physician Unavailable SOREN WILSON Attending Clinician Unavailable DR MALLORY LEBLANC Attending Clinician Unavailable [phone] Attending Clinician Unavailable DR PATTI MARISCAL Attending Clinician Unavailable [phone] Attending Clinician Unavailable Soren Wilson MD Attending Clinician Tim Vyas MD Attending Clinician DONALDO JUSTICE Attending Clinician Unavailable SOREN WILSON Admitting Clinician Unavailable DR MALLORY LEBLANC Admitting Clinician Unavailable DR PATTI MARISCAL Admitting Clinician Unavailable DONALDO JUSTICE Admitting Clinician Unavailable Payers Payer Name Policy Type Policy Number Effective Date Expiration Date S helen BLUE CROSS BLUE [id number] SHIELD - OP BCBS PPO POS EPO [id number] 2019 CHOICE 00:00:00 Problems Condition Condition Condition Status Onset Resolution Last Treating Co mments Source Name Details Category Date Date Treatment Clinician Date COVID-19 COVID-19 [facility] Coronary Coronary Disease [facility] 2017[facility] disease disease 00:00: Medical involving involving 00 Cent er [place] coronary coronary artery of artery of yuhaav[place]am [place]uhaaviatam heart with heart with angina angina pectoris pectoris Diastolic Diastolic Disease Active 2017-[address] [facility] CHF CHF 09[facility]09 [facility]: Medical 00 [place] 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 [facility] diabetes diabetes 09-09 [facility] mellitus mellitus 00:00: Medica l 00 [place] HTN HTN Disease Active 2017-[address] (hypertens (hypertens 12 [facility] ion) ion) 00:00: Medical 00 [place] JOSE CRUZ JOSE CRUZ Disease Active 2017-[address] (obstructi (obstructi 09-09 [facility] ve sleep ve sleep 00:00: Medica l apnea) apnea) 00 [place] HLD HLD Disease Active 2017-[address] (hyperlipi (hyperlipi 09-09 [facility] demia) demia) 00:00: Medical 00 [place] Postoperat Postoperat Disease Active 2017-[address] norma pain norma pain 09-06 [facility] 00:[facility]: Medical 00 [place] Acute Acute Disease Active 2017-[address] [facility] respirator respirator 08 [facility] y y 00:00: Medical insufficie insufficie 00 Ce nter ncy ncy Other Other Disease Active 2017-[address] [facility] shock shock 09-05 [facility] 00:[facility]: Medical 00 [place] AMI (acute AMI (acute Disease Active 2017-[address] myocardial myocardial 09-03 [facility] infarction infarction 00:00: In dical ) ) 00 [place] Obesity Obesity Disease Active Methodi (BMI (BMI 3-04 st 30-39.9) 30-39.9) 00:00: Hospit a 00 l Essential Essential Disease Active Met hodi hypertensi hypertensi 3-04 st on on 00:00: Hospita 00 l Type 2 Type 2 Disease Active Methodi diabetes diabetes 3-04 st mellitus mellitus 00:00: Hospit a without without 00 l complicati complicati on on 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 Center Allergies, Adverse Reactions, Alerts Allergy Allergy Status Severity Reaction(s) Onset Inactive Treating Comm ents Source Name Type Date Date Clinician HYDROCOD Allergy Active Other 2017-08 [facility] ONE-ACET 09-05 AMINOPHE 00:00: N 00 Hydrocod Propensi Active Other (See 2017-[address] one-Acet ty to Comments) 09-05 headed [facility] aminophe adverse 00:00: Medical n reaction 00 Center s Family History Family Member Diagnosis Comments Start Date Stop Date Source Natural father Cancer [facility] Maternal grandmother Cancer [facility] Maternal grandmother Heart disease C [facility] Maternal uncle Stroke [facility] Natural mother Diabetes [facility] Natural mother Heart disease [facility] Natural mother Hypertension [facility] Natural mother Stroke [facility] Paternal uncle Diabetes [facility] Social History Social Habit Start Date Stop Date Quantity Comments Source History SDOH [facility] Alcohol Frequency Medical Center History SDOH [facility] Alcohol Std Drinks Medica Center History SDOH [facility] Alcohol Binge Medical Tresa ter History of tobacco Current smoker Me [facility] use Hospital History SDOH 2021-05-12 2021-05-12 only1, [address] [facility] Alcohol Comment 00:00:00 00:00:00 year Medical C enter Tobacco Comment 2021-05-12 2021-05-12 stop smoking [address] [facility] 00:00:00 00:00:00 years ago Medical Center Tobacco use and 2021-05-12 2021-05-[address] [facility] exposure 00:00:00 00:00:00 Medical Center Alcohol intake 2017-10-30 2017-10-30 Current drinker [facility] dist 00:00:00 00:00:00 of alcohol Hospital (finding) Sex Ass[birth year] At [birth year] [facility] 00:00:00 00:00:00 Hospital Smoking Status Start Date Stop Date Source Former smoker Never [facility] Center Medications Ordered Filled Start Stop Current Ordering Indication Dosage Frequency Signature Comments Components Source Medication Medication Date Date Medication? Clinician (SIG) Name Name dexAMETHaso 2020- No 6mg QD Take [address] ne 05-14 -21 tablet (6 [facility] (DECADRON) 00:00: 23:59 mg total) M edical 6 MG tablet 00 :00 by mouth Cent er daily for 5 days. carvedilol 0 Yes 25mg Take [address] (COREG) 25 9-15 by mouth 2 Olivia es MG tablet 11:27: (two) Medical 57 times Center daily with breakfast and dinner. atorvastati 0 Yes 80mg QD Take [address] n (LIPITOR) 9-15 by mouth Luke s 80 MG 11:27: daily. Medical tablet 57 Center aspirin 81 0 Yes 81mg QD Take [address] MG EC 9-15 by mouth [facility] tablet 11:27: daily. Medical 57 Center ascorbic 0 Yes 1000mg QD Take 1,[address] acid, 9-15 mg by [facility] vitamin C, 11:27: mouth Medica l (VITAMIN C) 57 daily. Center 1000 MG tablet metFORMIN Yes 500mg Take [address] (GLUCOPHAGE 9-15 mg by [facility] ) 500 MG 11:27: mouth 2 Medica l tablet 57 (two) Center times daily with breakfast and dinner. glimepiride 0 Yes 2mg Q.5D Take [address] (AMARYL) 2 9-15 by mouth 2 Olivia es MG tablet 11:27: (two) Medical 57 times Center daily. ranitidine 0 Yes 150mg QD Take [address] (ZANTAC) 9-15 mg by [facility] 150 MG 11:27: mouth Medical capsule 57 daily. Center nitroglycer [address] 0[address] in 9-15 mg under [facility] (NITROSTAT) 11:27: the Medica l 0.4 [address] SL 57 tongue. Center tablet carvedilol 0 Yes 25mg Take [address] (COREG) 25 9-15 by mouth 2 Olivia es MG tablet 11:27: (two) Medical 57 times Center daily with breakfast and dinner. atorvastati 0 Yes 80mg QD Take 80 mg CHI [...] MG 11:27: mouth Medical capsule 57 daily. [place] nitroglycer Yes .4mg Place 0.4 C HI [...] 80 MG 17:24: daily. Medical tablet 00 [place] aspirin 81 2017-08 Yes 81mg QD Take [...] [address] MG EC -13 by mouth [facility] tablet 17:24: daily. Medical [...] MG SL 00 tongue. Center tablet clopidogrel Yes 75mg QD Take 75 mg [...] Hospi ta tablet 18 daily. l ranitidine 2017-0 Yes 150mg Take 150 Me thodi (ZANTAC) 3-[address] 150 MG 20:54: mouth Hospita tablet 18 daily. l citalopram 2017-0 Yes 20mg QD Take 20 mg M ethodi (CeleXA) 20 3-[address] MG tablet 20:54: daily. Hospit a 18 l citalopram 2017-0 Yes 20mg QD Take 20 mg M ethodi (CeleXA) 20 3-[address] MG tablet 14:54: daily. Hospit a 18 l clopidogrel 2018-0 Yes 75mg QD Take 75 mg Methodi (PLAVIX) 75 3-[address] mg tablet 14:54: daily. Hospit a 18 l carvedilol 2017-0 Yes 25mg Q.5D Take 25 mg M [...] Hospita enteric 18 l coated tablet nitroglycer 2017-[address] 0.4 M ethodi in [...] kg Body height 2021-05-13 08:00:00 180.3 cm [facility] Body weight 2021-05-13 08:00:00 106.595 kg [facility] BMI 2021-05-13 08:00:00 32.78 kg/m2 [facility] Oxygen saturation in 2021-05-13 07:26:00 94 /min [facility] Arterial blood by Medical Ce nter Pulse oximetry Systolic blood 2021-05-13 07:26:00 128 mm[Hg] [facility] pressure [facility] Diastolic blood 2021-05-13 07:26:00 85 mm[Hg] [facility] Heart rate 2021-05-13 07:26:00 64 /min [facility] Body temperature 2021-05-13 07:26:00 36.22 Charlene [facility] Respiratory rate 2021-05-13 07:26:00 20 /min [facility] Procedures Procedure Date / Time Performed Performing Clinician Sour e POCT-GLUCOSE METER 2021-05-13 07:43:00 Tim Vyas [facility] BASIC METABOLIC PANEL 2021-05-13 04:21:00 [facility] () [facility] HEPATIC FUNCTION PANEL 2021-05-13 04:21:00 [facility] HEMOGLOBIN A1C 2021-05-13 04:21:00 [facility] LIPID PANEL 2021-05-13 04:21:00 [facility] PROTHROMBIN TIME/INR 2021-05-13 04:21:00 [facility] CBC W/PLT COUNT & AUTO 2021-05-13 04:21:[address] [facility] C-REACTIVE PROTEIN 2021-05-13 04:21:[address] [facility] FERRITIN 2021-05-13 04:21:00 [facility] 2021-05-13 04:21:00 [facility] CBC W/PLT COUNT & AUTO 2021-05-13 04:21:[address] [facility] POCT-GLUCOSE METER 2021-05-12 19:38:00 [facility] 2021-05-12 16:42:00 [facility] Plan of Care Planned Activity Planned Date Details Comments Source Future Scheduled 2024-05-[address] [facility] Test 00:00:00 (procedure) [code = [facility] 57034392] Future Scheduled 2024-05-[address] [facility] Test 00:00:00 (procedure) [code = [facility] 39879065] Future Scheduled 2022-08-[address] [facility] Test 00:00:00 (12+) [code = [facility] DEPRESSION SCREENING (12+)] Future Scheduled 2022-08-12 COVID-19 VACCINE (#1) [facility] Hospital Test 23:26:50 [code = COVID-19 VACCINE (#1)] Future Scheduled 2022-08-12 COLONOSCOPY SCREENING [facility] Hospital Test 23:26:50 [code = COLONOSCOPY SCREENING] Future Scheduled 2022-08-12 SHINGLES VACCINES (1 [facility] Hospital Test 23:26:50 of 2) [code = SHINGLES VACCINES (1 of 2)] Future Scheduled 2022-08-12 INFLUENZA VACCINE Method ist Hospital Test 23:26:50 [code = INFLUENZA VACCINE] Future Scheduled 2022-05-[address] [facility] Test 00:00:00 [facility] Cent[facility] r Screening (12+) [code = Tobacco Cessation Counseling and Screening (12+)] Future Scheduled 2022-04-29 INFLUENZA VACCINE (#1) [facility] Test 00:00:00 [code = INFLUENZA Medical Ce nter VACCINE (#1)] Future Scheduled 2021-11-[address] [facility] Test 00:00:00 [facility] (procedure) [code = 15856718] Future Scheduled 2021-11-[address] [facility] Test 00:00:00 [facility] (procedure) [code = 62756733] Future Scheduled 2021-09-29 COVID-19 VACCINE (1) Met [facility] Test 13:09:20 [code = COVID-19 VACCINE (1)] Future Scheduled 2021-09-29 COLONOSCOPY SCREENING [facility] Test 13:09:20 [code = COLONOSCOPY SCREENING] Future Scheduled 2021-09-29 SHINGLES VACCINES (#1) M [facility] Test 13:09:20 [code = SHINGLES VACCINES (#1)] Future Scheduled 2021-09-29 INFLUENZA VACCINE Method [facility] Hospital Test 13:09:20 [code = INFLUENZA VACCINE] Future Scheduled 2021-09-29 COVID-19 VACCINE (1) Met [facility] Test 13:09:20 [code = COVID-19 VACCINE (1)] Future Scheduled 2021-09-29 COLONOSCOPY SCREENING [facility] Test 13:09:20 [code = COLONOSCOPY SCREENING] Future Scheduled 2021-09-29 SHINGLES VACCINES (#1) M [facility] Test 13:09:20 [code = SHINGLES VACCINES (#1)] Future Scheduled 2021-09-29 INFLUENZA VACCINE Method is Hospital Test 13:09:20 [code = INFLUENZA VACCINE] Future Scheduled 2021-07-[address] Test 00:00:00 (procedure) [code = [facility] 13825549] Future Scheduled 2021-07-[address] Test 00:00:00 (procedure) [code = [facility] 17737247] Future Scheduled 2021-04-29 INFLUENZA VACCINE (#1) C [...] 00:00:00 measurement Medical Center (procedure) [code = 09920070] Future Scheduled 2019-01-[address] [facility] Test 00:00:00 measurement Medical Center (procedure) [code = 15828249] Future Scheduled 2015 SHINGLES VACCINES (1 CHI [...] 00:00:00 examination Medical Center (regime/therapy) [code = 137057182] Future Scheduled 1975 Urine screening [facility] Test 00:00:00 protein (procedure) Medical Center [code = 272439125] Future Scheduled 1975 DIABETIC EYE EXAM [facility] Test 00:00:00 [code = DIABETIC EYE Medical Center EXAM] Future Scheduled [address] [facility] Test 00:00:00 examination Medical Center (regime/therapy) [code = 889406179] Future Scheduled 1975 Urine screening [facility] Test 00:00:00 protein (procedure) Medical Center [code = 910658126] Future Scheduled [address]AB[address] EYE EXAM [facility] Test 00:00:00 [code = DIABETIC EYE Medical Center EXAM] Future Scheduled [address] [facility] Test 00:00:00 examination Medical Center (regime/therapy) [code = 699018058] Future Scheduled 1975 Urine screening [facility] Test 00:00:00 protein (procedure) Medical Center [code = 972736093] Future Scheduled [address]ABETIC EYE EXAM [facility] Test 00:00:00 [code = DIABETIC EYE Medical Center EXAM] Future Scheduled [address] [facility] Test 00:00:00 examination Medical Center (regime/therapy) [code = 629559298] Future Scheduled 1975 Urine screening [facility] Test 00:00:00 protein (procedure) Medical Center [code = 812969336] Future Scheduled [address] [...] [facility] Test 00:00:00 0-64 YRS (1 - PCV) Medical C enter [code = PNEUMOCOCCAL VACCINE 0-64 YRS (1 - PCV)] Future Scheduled 1970 COVID-19 VACCINE (1) [facility] Test 00:00:00 [code = COVID-[address] VACCINE (1)] Future Scheduled 1965 COVID-19 VACCINE (#1) [facility] Test 00:00:00 [code = COVID-[address] VACCINE (#1)] Future Scheduled [address] [facility] Test 00:00:00 malignant neoplasm of Medica l Center colon (procedure) [code = 867912208] Future Scheduled [address] [facility] Test 00:00:00 malignant neoplasm of Medica l Center colon (procedure) [code = 448723470] Future Scheduled [address] [facility] Test 00:00:00 malignant neoplasm of Medica l Center colon (procedure) [code = 372820685] Future Scheduled [address] [facility] Test 00:00:00 (combo) [code = CT Medical C enter Colonography (combo)] Future Scheduled [address] [facility] Test 00:00:00 malignant neoplasm of Medica l Center colon (procedure) [code = 010682698] Future Scheduled [address] [facility] Test 00:00:00 malignant neoplasm of Medica l Center colon (procedure) [code = 814143138] Future Scheduled [address] [facility] Test 00:00:00 malignant neoplasm of Medica l Center colon (procedure) [code = 522566481] Future Scheduled [address] [facility] Test 00:00:00 malignant neoplasm of Medica l Center colon (procedure) [code = 541161242] Future Scheduled 1965 Sigmoidoscopy [code = [facility] Test 00:00:00 Sigmoidoscopy] Medical Cente r Future Scheduled COVID-19 VACCINE (1) [facility] Hospital Test [code = COVID-19 VACCINE (1)] Future Scheduled COLONOSCOPY SCREENING [facility] Hospital Test [code = COLONOSCOPY SCREENING] Future Scheduled SHINGLES VACCINES (#[facility]) [facility] [code = SHINGLES VACCINES (#1)] Future Scheduled INFLUENZA VACCINE Method ist Hospital Test [code = INFLUENZA VACCINE] Future Scheduled COVID-19 VACCINE (1) [facility] Hospital Test [code = COVID-19 VACCINE (1)] Future Scheduled COLONOSCOPY SCREENING [facility] Hospital Test [code = COLONOSCOPY SCREENING] Future Scheduled SHINGLES VACCINES (#1) M ethodist Hospital Test [code = SHINGLES VACCINES (#1)] Future Scheduled INFLUENZA VACCINE Method ist Hospital Test [code = INFLUENZA VACCINE] Encounters Start End Encounter Admission Attending Care Care Encounter Source Date/Time Date/Time Type Type Clinicians Facility Department ID 2022-05-19 Outpatient ELCAMPO ELCAMPO [id number] El 12:14:13 [id number] [facility] 2022-02-10 Outpatient ELCAMPO ELCAMPO [id number] El 10:20:05 [id number] [facility] 2021-12-31 [facility] [id number] 09:23:53 [id number] [facility] 2021-06-07 [id number] 12:24:57 [facility] 2022-06-29 2022-06-29 Outpatient [id number] 07:21:00 07:21:00 [id number] [place] 2022-06-29 2022-06-29 Hypothyro 1.3.6.1.4 1.3.6.1.4.1 2 [id number] 07:21:00 07:21:00 idism, .1.18747 .[id number] [id number] unspecifie [id number] d [id number] 06/29/2022 SNOMED-CT 2022-06-29 2022-06-29 Outpatient N DEANA [facility] [id number] El 07:21:00 07:21:00 [id number] [facility] 2022-05-12 2022-05-12 Outpatient N PATTI MARISCAL [facility] [id number] El 07:42:00 07:44:00 [id number] [facility] 2022-03-25 2022-03-25 [facility] [id number] El 07:33:00 07:33:00 [id number] [facility] 2021-12-31 2021-12-31 [facility] [id number] El 09:26:00 09:26:00 [id number] [facility] 2021-05-12 2021-05-13 [facility] ER Soren Wilson [facility] [id number] [facility] 14:00:00 11:27:00 [facility] 2018-07-18 2018-07-18 Outpatient [facility]AL [facility] [id number] [facility] 00:00:00 00:00:00 DONALDO Results Test Description Test Time Test Comments Results Result Comments Source LIPID PROFILE 2022-06-29 07:42:00 Test Item Value Reference Range Interpretation Comme nts CHOLESTEROL (test code = 2093-3) 145 mg/dL 0-200 TRIGLYCERIDES (test code = 2571-8) 116 mg/dL 30-150 HDL (test code = 2085-9) 54 mg/dL 40-60 LDL (test code = 21380-7) 68 mg/dL RISK FACTOR (test code = RISK FACTOR) 2.7 LDL/HDL (test code = LDL/HDL) 1 COMP META [id number] 07:42:00 Test Item Value Reference Range Interpretation Comments SODIUM (test code = 2951-2) 146 mmol/L 136-145 H POTASSIUM (test code = POTASSIUM) 4.7 mmol/L 3.5-5.1 CHLORIDE (test code = 2075-0) 107 mmol/L 98-107 CO2 (test code = 1963-8) 27.5 mmol/L 21-32 ANION GAP (test code = ANION GAP) 12 GLUCOSE (test code = 2345-7) 149 mg/dL 74-106 H BUN (test code = 3091-6) 14 mg/dL 5-27 CREATININE (test code = 2160-0) 1.10 mg/dL 0.6-1.3 BUN/CREAT (test code = BUN/CREAT) 13 TOTAL PROTEIN (test code = TOTAL 7.3 g/dL 6.4-8.2 PROTEIN) ALBUMIN (test code = ALBUMIN) 4.2 g/dL 3.4-5 GLOBULIN (test code = GLOBULIN) 3.1 g/dL 1.9-3.7 A/G RATIO (test code = A/G RATIO) 1.4 1-2.6 CALCIUM (test code = 89265-6) 9.8 mg/dL 8.5-10.1 TOTAL BILI (test code = 1974-2) 0.8 mg/dL 0.2-1 ALKALINE PHOS (test code = 79 U/L 46-116 ALKALINE PHOS) SGOT/AST (test code = 1920-8) 31 U/L 15-37 SGPT/ALT (test code = 1744-2) 67 U/L 12-78 AGE (test code = AGE) 57 yrs AFR AMER GFR (test code = AFR 83 mL/min AMER GFR) NON-AA GFR (test code = NON-AA 69 mL/min GFR) GLYCO [id number] 07:42:00 Test Item Value Reference Range Interpretation Comments GLYCO HGB (test code = 3432-2) 6.9 % 4.2-6.5 H [id number] 07:42:00 Test Item Value Reference Range Interpretation Comments T4 FREE (test code = 3024-7) 1.03 ng/dL 0.76-1.46 T3 [id number] 07:42:00 FREE T3 2.8 [id number] 07:42:00 Test Item Value Reference Range Interpretation Comments TSH (test code = 21777-3) 2.41 uIU/mL 0.35-3.74 [id number] 08:23:15 Test Item Value Reference Range Interpretation Comments Ferritin (test code = 2096.56 ng/mL 5.00-275.00 H 2276-4) MURIEL (test code = MURIEL) [employer] ID - MAX BOONE - MAX M Lab Interpretation (test Abnormal code = 69513-1) [facility] 08:23[facility]15 Test Item Value Reference Range Interpretation Comments FERRITIN (BEAKER) (test code = 2096.56 ng/mL 5.00-275.00 H 361) [employer] ID - MAX Bartontor PAOLO - MAX MPOC-Glucose [id number] 07:55:15 Test Item Value Reference Range Interpretation Comments POC-Glucose Meter (test 283 mg/dL 70-110 H : TE STED AT [facility] code = 1538) [address] [place], [address]: [employer]/Techni israel ID = [id number] for Payal (contract )Reina Lab Interpretation (test Abnormal code = 30069-9) [facility]UCOSE [id number] 07:55:15 Test Item Value Reference Range Interpretation Comments POC-GLUCOSE METER 283 mg/dL 70-110 H : TESTED A T [facility] 6720 (BEAKER) (test code = [place], 1538) [address]: [employer]/Techni israel ID = [id number] for Nishant holland (contract)Shireen Hemoglobin [id number] 07:46:02 Test Item Value Reference Range Interpretation Comments Hemoglobin A1C (test code = 4548-4) 8.5 % 4.3-6.1 H Lab Interpretation (test code = Abnormal 32720-0) [facility] [id number] 07:46:02 Test Item Value Reference Range Interpretation Comments HEMOGLOBIN A1C (BEAKER) (test code = 8.5 % 4.3-6.1 H 368) Lipid [id number] 05:25:49 Test Item Value Reference Range Interpretation Comments Triglycerides (test 220 mg/dL code = 2571-8) Cholesterol (test code 182 mg/dL = 2093-3) HDL (test code = 41 mg/dL 2084-9) LDL Calculated (test 97 mg/dL code = 08411-5) MURIEL (test code = MURIEL) Triglyceride Reference Range: Low Risk <150 Borderline 150-199 High Risk 200-499 Very High Risk >=500 Cholesterol Reference Range: Low Risk <200 Borderline 200-239 High Risk >240 HDL Cholesterol Reference Range: Low Risk >=60 High Risk <40 LDL Cholesterol Reference Range: Optimal <100 Near Optimal 100-129 Borderline 130-159 High 160-189 Very High >=190 [employer] ID - MAX Pimentel [facility] HospitalHepatic function [id number] 05:25:49 Test Item Value Reference Range Interpretation Comments Protein, Total (test 7.1 See_Comment [Autom ated code = 2885-2) message] The system which generated this result transmit carmen reference range : 6.0 - 8.3 gm/dL . The reference range was not u sed to interpret th is result as normal/abnormal . Albumin (test code = 3.4 g/dL 3.5-5.0 L 19899-9) Total Bilirubin (test 0.6 mg/dL 0.2-1.2 code = 1974-2) Bilirubin, Direct 0.3 mg/dL 0.1-0.5 (test code = 1967-7) Alkaline Phosphatase 132 U/L 40-150 (test code = 6768-6) AST (test code = 35 U/L 5-34 H 1920-8) ALT (test code = 53 U/L 6-55 1742-6) MURIEL (test code = MURIEL) [employer] ID Rigo Pimentel Lab Interpretation Abnormal (test code = 61556-0) [facility]-Reactive [id number] 05:25:49 Test Item Value Reference Range Interpretation Comments CRP (test code = 676) 12.50 mg/dL 0.00-0.50 H MURIEL (test code = MURIEL) [employer] ID Rigo Pimentel Lab Interpretation (test Abnormal code = 58891-4) [facility] HospitalLIP[facility] [id number] 05:25:49 Test Item Value Reference Range Interpretation [...] Borderline 130-159 High 160-189 Very High >=190 [employer] ID Rigo SANTANA EPATIC FUNCTION [id number] 05:25:49 Test Item Value Reference Range Interpretation [...] (test code = 53 U/L 6-55 347) [employer] ID - MAX MC-REACTIVE [id number] 05:25:49 Test Item Value Reference Range Interpretation Comments C-REACTIVE PROTEIN (BEAKER) (test 12.50 mg/dL 0.00-0.50 H code = 676) [employer] ID - MAX MBasic metabolic [id number] 05:25:48 Test Item Value Reference Range Interpretation Comments Sodium (test code = 138 meq/L 051-467 3548-2) Potassium (test code = 4.3 meq/L 3.5-5.1 2823-3) Chloride (test code = 104 meq/L 98-107 2075-0) CO2 (test code = 22 meq/L 22-29 2028-9) BUN (test code = 20 mg/dL 7-21 3094-0) Creatinine (test code 0.88 mg/dL 0.57-1.25 = 2160-0) Glucose (test code = 314 mg/dL 70-105 H 2345-7) Calcium (test code = 9.5 mg/dL 8.4-10.2 46638-1) EGFR (test code = 90 mL/min/1.73 [place] [address]-5) NOT ACCURATE CREATININE CLEARANCE IN PREDICTING GLOMERULAR FILTRATION RATE . ESTIMATED GFR I S NOT APPLICABLE FOR DIALYSIS PATIENTS. MURIEL (test code = MURIEL) [employer]layer [employer] ID - MAX M Lab Interpretation Abnormal (test code = 40916-1) [facility] [id number] 05:25:48 Test Item Value Reference Range Interpretation [...] S NOT APPLICABLE FOR DIALYSIS PATIEN TS. 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 The refe rence range was not u sed to interpret this result as normal/abnor mal. RBC (test code = 789-8) 4.62 See_Comment L [Au tomated message] The system [employer] generated this result transmitted ref erence range: 4.63 - 6 .08 M/L. The refe rence range was not u sed to interpret this result as normal/abnor mal. MCHC (test code = 786-4) 33.5 See_Comment [A utomated message] The system [employer] generated this result transmitted ref erence range: [...] code = 256 See_Comment [Aut omated message] 587-3) The system [employer] generated this result transmitted ref erence range: 150 - 45 0 K/CU MM. The referen ce range was not u sed to interpret this result as normal/abnor mal. MPV (test code = 10.4 fL 9.4-12.4 75386-4) nRBC (test code = 413) 0 See_Comment [Aut omated message] The system [employer] generated this result transmitted ref erence range: [...] H [Aut omated message] 670) The system [employer] generated this result transmitted ref erence range: 1.78 - 5 .38 K/L. The refe rence range was not u sed to interpret this result as normal/abnor mal. # Lymphs (test code = 0.89 See_Comment L [Auto mated message] 414) The system [employer] generated this result transmitted ref erence range: 1.32 - 3 .57 K/L. The refe rence range was not u sed to interpret this result as normal/abnor mal. # Monos (test code = 0.47 See_Comment [Autom ated message] 415) The system [employer] generated this result transmitted ref erence range: 0.30 - 0 .82 K/L. The refe rence range was not u sed to interpret this result as normal/abnor mal. # Eos (test code = 416) 0.00 See_Comment L [Au tomated message] The system [employer] generated this result transmitted ref erence range: 0.04 - 0 .54 K/L. The refe rence range was not u sed to interpret this result as normal/abnor mal. # Baso (test code = 417) 0.02 See_Comment [A utomated message] The system [employer] generated this result transmitted ref erence range: 0.01 - 0 .08 K/L. The refe rence range was not u sed to interpret this result as normal/abnor mal. Immature 1 % 0-1 Granulocytes-Relative (test code = 2801) Lab Interpretation (test Abnormal code = 64849-3) [facility] W/PLT COUNT & AUTO [id number] 05:03:38 Test Item Value Reference Range Interpretation [...] 0-1 PERCENT (BEAKER) (test code = 2801) [id number] 04:55:15 Test Item Value Reference Range Interpretation Comments D-Dimer, Quant (test 0.41 See_Comment [Autom ated code = 13292-9) message] The system which generated this result [...] range. Lab Interpretation Normal (test code = 40227-5) [id number] 04:55:15 Test Item Value Reference Range Interpretation [...] of thrombosis is within 95-100% range. Prothrombin time/[id number] 04:52:50 Test Item Value Reference Interpretation Comments Range Protime (test code = 13.3 See_Comment [Autom ated 5902-2) message] The system which generated this result transmitted reference range : 11.9 - 14.2 seconds. The reference range was not used to interpret this result as normal/abnormal . INR (test code = 1.03 See_Comment [Automated 5941-6) message] The system which generated this result [...] valves. Lab Interpretation Normal (test code = 71616-2) [facility][id number] 04:52:50 Test Item Value Reference Range Interpretation Comments PROTIME (BEAKER) 13.3 seconds 11.9-14.2 (test code = 759) INR (BEAKER) (test 1.03 See_Comment [Automat ed message] code = 370) The system [employer] generated this result transmitted ref erence range: <=5.90. The reference range was not used to int erpret this result as normal/abnormal . RECOMMENDED COUMADIN/WARFARIN INR THERAPY RANGESSTANDARD DOSE: 2.0 - 3.0 Includes: PROPHYLAXIS for venous thrombosis, systemic embolization; TREATMENT for venous thrombosis and/or pulmonary embolus.HIGH RISK: Target INR is 2.5-3.5 for patients with mechanical heart valves.POCT-GLUCOSE [id number] 19:55:32 Test Item Value Reference Range Interpretation Comments POC-GLUCOSE METER 391 mg/dL 70-110 H : Notified RN/: (BECKYROSINA) (test code = TESTED AT [facility] 6720 1538) [facility], [address]: Bricklayer Sewer/Techni israel ID = [id number] for NAIDA OTERO JUAN CARLOS POCT-GLUCOSE [id number] 16:53:52 Test Item Value Reference Range Interpretation Comments POC-GLUCOSE METER 301 mg/dL 70-110 H : TESTED A T [facility] 6720 (BEROSINA) (test code = [facility], 1538) [address]: Bricklayer Sewer/Techni israel ID = [id number] for Rosamaria Caicedo URINALYSIS W/ REFLEX URINE [id number] 16:24:00 Test Item Value Reference Range Interpretation [...] /LPF SOURCE(BEAKER) (test code = 2795) POCT-GLUCOSE [id number] 12:36:00 Test Item Value Reference Range Interpretation Comments POC-GLUCOSE METER 151 mg/dL 70-110 H TESTED AT [place] [address] (BEAKER) (test code = [facility] 1538) [address] POCT-GLUCOSE [id number] 08:14:00 Test Item Value Reference Range Interpretation Comments POC-GLUCOSE METER 159 mg/dL 70-110 H TESTED AT [place] [address] ([facility]) (test code = [facility] 1538) [address] RAD, CHEST, 1 VIEW, NON [id number] 08:10:00Reason for exam:->eval pulmonary congestionShould this be performed at the bedside?->YesFINAL REPORT RAD, CHEST, 1 VIEW, NON DEPT INDICATION: eval pulmonary congestionCOMPARISON: Prior day's exam FINDINGS: Portable frontal view of the chest. IMPRESSION: Support Lines: None. Lungs and pleura: Improved aeration with decreasing congestive changes bilaterally. No effusion. No pneumothorax.Heart and mediastinum: Persistent enlargement of the cardiac silhouette. Stable millard rgical changes.Additional findings: None. Signed: JR Cally, Shayna Hernandez Verified Date/Time: 07/11/2018 08:10:57 Reading Location: [facility] C013V Neuro Reading Room [id number] 05:02:00 Test Item Value Reference Range Interpretation Comments MAGNESIUM (BEAKER) (test code = 2.1 mg/dL 1.6-2.6 627) BASIC METABOLIC [id number] 05:02:00 Test Item Value Reference Range Interpretation [...] % 40.1-51.0 L 411) MEAN CORPUSCULAR VOLUME ([facility]) 99.4 fL 79.0-92.2 H (test code = 753) MEAN CORPUSCULAR HEMOGLOBIN 32.2 pg 25.7-32.2 ([facility]) (test code = 751) MEAN CORPUSCULAR HEMOGLOBIN CONC 32.4 GM/DL 32.3-36.5 ([facility]) (test code = 752) RED CELL DISTRIBUTION WIDTH 12.2 % 11.6-14.4 ([facility]) (test code = 412) PLATELET COUNT ([facility]) (test 179 K/CU MM 150-450 code = 756) MEAN PLATELET VOLUME ([facility]) 10.0 fL 9.4-12.4 (test code = 754) NUCLEATED RED BLOOD CELLS 0 /100 WBC 0-0 ([facility]) (test code = 413) POCT-GLUCOSE [id number] 21:35:00 Test Item Value Reference Range Interpretation Comments POC-GLUCOSE METER 172 mg/dL 70-110 H TESTED AT [place] [address] ([facility]) (test code = [place] 1538) [address] POCT-GLUCOSE [id number] 17:50:00 Test Item Value Reference Range Interpretation Comments POC-GLUCOSE METER 142 mg/dL 70-110 H TESTED AT [place] [address] ([facility]) (test code = SURAJ Colon [facility] 1538) [address] B-TYPE NATRIURETIC FACTOR (BNP)2018-07-10 14:23:00 Test Item Value Reference Range Interpretation Comments B-TYPE NATRIURETIC PEPTIDE ([facility]) 263 pg/mL 0-100 H (test code = 700) POCT-GLUCOSE [id number] 12:30:00 Test Item Value Reference Range Interpretation Comments POC-GLUCOSE METER 162 mg/dL 70-110 H TESTED AT [place] [address] ([facility]) (test code = [place] 1538) [address] POCT-GLUCOSE [id number] 08:28:00 Test Item Value Reference Range Interpretation Comments POC-GLUCOSE METER 248 mg/dL 70-110 H TESTED AT [place] [address] ([facility]) (test code = SURAJ Colon [place] 1538) [address] RAD, CHEST, 1 VIEW, NON [id number] 07:32:00Reason for exam:->eval pulmonary congestionShould this be [...] changes.Additional findings: None. Signed: JR Cally, Shayna HYDEepkristan Verified Date/Time: 07/10/2018 07:32:04 Reading Location: [address] Neuro Reading Room [id number] 06:04:00 Test Item Value Reference Range Interpretation Comments MAGNESIUM (BEAKER) (test code = 2.3 mg/dL 1.6-2.6 627) BASIC METABOLIC [id number] 06:04:00 Test Item Value Reference Range Interpretation [...] 0-0 (BEAKER) (test code = 413) POCT-GLUCOSE [id number] 21:23:00 Test Item Value Reference Range Interpretation Comments POC-GLUCOSE METER 166 mg/dL 70-110 H TESTED AT [facility] 6720 (BEAKER) (test code = [place] 1538) [address] [id number] 12:50:00 Test Item Value Reference Range Interpretation Comments POTASSIUM (BEAKER) (test code = 4.0 meq/L 3.5-5.1 379) Check Serum Magnesium level 2 hours after IV magnesium replacement.Check Serum Phosphorus level 4 hours after IV phosphorus replacement or 8 hours after PO replacement completed.Every 8 hours PRN for Creatinine greater than or equal to 2 mg/dL.[id number] 12:50:00 Test Item Value Reference Range Interpretation Comments MAGNESIUM (BEAKER) (test code = 2.3 mg/dL 1.6-2.6 627) Check Serum Magnesium level 2 hours after IV magnesium replacement.Check Serum Phosphorus level 4 hours after IV phosphorus replacement or 8 hours after PO replacement completed.Every 8 hours PRN for Creatinine greater than or equal to 2 mg/dL.[id number] 12:50:00 Test Item Value Reference Range Interpretation Comments PHOSPHORUS (TAMIR) (test code = 1.6 mg/dL 2.3-4.7 L 604) Check Serum Magnesium level 2 hours after IV magnesium replacement.Check Serum Phosphorus level 4 hours after IV phosphorus replacement or 8 hours after PO replacement completed.Every 8 hours PRN for Creatinine greater than or equal to 2 mg/dL.POCT-GLUCOSE [id number] 12:19:00 Test Item Value Reference Range Interpretation Comments POC-GLUCOSE METER 255 mg/dL 70-110 H TESTED AT [facility] 67 ([facility]) (test code = SURAJ Colon [facility] 1538) [address] RAD, CHEST, 1 VIEW, NON [id number] 09:46:00while patient is intubated or has chest [...] in the SVC region. Signed: Aga Zafar MDReport Verified Date/Time: 07/09/2018 09:46:04 Reading Location: [address] Transitional Reading Room POCT-GLUCOSE [id number] 08:01:00 Test Item Value Reference Range Interpretation Comments POC-GLUCOSE METER 173 mg/dL 70-110 H TESTED AT [facility] 6720 [facility] (test code = SURAJ Colon [facility] 1538) [address] [id number] 04:58:00 Test Item Value Reference Range Interpretation Comments PHOSPHORUS (TAMIR) (test code = 2.3 mg/dL 2.3-4.7 604) Check Serum Phosphorus level 4 hours after IV phosphorus replacement or 8 hours after PO replacementcompleted.[id number] 04:58:00 Test Item Value Reference Range Interpretation Comments MAGNESIUM (BEAKER) (test code = 2.3 mg/dL 1.6-2.6 627) Check Serum Phosphorus level 4 hours after IV phosphorus replacement or 8 hours after PO replacementcompleted.BASIC METABOLIC [id number] 04:58:00 Test Item Value Reference Range Interpretation [...] (BEAKER) (test code = 412) PLATELET COUNT (AKER) (test 107 K/CU MM 150-450 L code = 756) MEAN PLATELET VOLUME (AKER) 10.6 fL 9.4-12.4 (test code = 754) NUCLEATED RED BLOOD CELLS 0 /100 WBC 0-0 (AKER) (test code = 413) [id number] 00:40:00 Test Item Value Reference Range Interpretation Comments POTASSIUM (BEAKER) (test code = 3.5 meq/L 3.5-5.1 379) Every 8 hours PRN for Creatinine greater than or equal to 2 mg/dL.POCT-GLUCOSE [id number] 20:50:00 Test Item Value Reference Range Interpretation Comments POC-GLUCOSE METER 171 mg/dL 70-110 H TESTED AT [facility] 6720 ([facility]) (test code = [place] 1538) [address] [id number] 18:19:00 Test Item Value Reference Range Interpretation Comments POTASSIUM (BEAKER) (test code = 3.7 meq/L 3.5-5.1 379) Check Serum Magnesium level 2 hours after IV magnesium replacement.Check Serum Phosphorus level 4 hours after IV phosphorus replacement or 8 hours after PO replacement completed.8 hours after PO replacement [id number] 18:19:00 Test Item Value Reference Range Interpretation Comments MAGNESIUM (BEAKER) (test code = 2.1 mg/dL 1.6-2.6 627) Check Serum Magnesium level 2 hours after IV magnesium replacement.Check Serum Phosphorus level 4 hours after IV phosphorus replacement or 8 hours after PO replacement completed.8 hours after PO replacement [id number] 18:19:00 Test Item Value Reference Range Interpretation [...] 698) PH, BLOOD (AKER) (test code = 7.51 1810) Check serum Ionized Calcium level after 4 hours after IV Calcium replacement. POCT-GLUCOSE [id number] 17:17:00 Test Item Value Reference Range Interpretation Comments POC-GLUCOSE METER 195 mg/dL 70-110 H TEST[facility] AT [facility] 67[facility] (test code = [facility] 1538) [address] POCT-GLUCOSE [id number] 12:17:00 Test Item Value Reference Range Interpretation Comments POC-GLUCOSE METER 231 mg/dL 70-110 H TESTED AT [facility] 67 ([facility]) (test code = [facility] 1538) [address] RAD, CHEST, 1 VIEW, NON [id number] 09:19:00Reason for exam:- >hypoxiaShould this be performed [...] MDReport Verified Date/Time: 07/08/2018 09:19:57 Reading Location: [address] Transitional Reading Room [id number] 08:56:00 Test Item Value Reference Range Interpretation Comments PHOSPHORUS (BEAKER) (test code = 1.7 mg/dL 2.3-4.7 L 604) [id number] 08:56:00 Test Item Value Reference Range Interpretation Comments MAGNESIUM (BEAKER) (test code = 2.1 mg/dL 1.6-2.6 627) BASIC METABOLIC [id number] 08:56:00 Test Item Value Reference Range Interpretation [...] APPLICABLE FOR DIALYSIS PATIEN TS. BLOOD GAS, [id number] 08:49:00 Test Item Value Reference Range Interpretation [...] 60.0 % CBC W/PLT COUNT & AUTO [id number] 06:39:00 Test Item Value Reference Range Interpretation [...] PERCENT (BEAKER) (test code = 2801) POCT-GLUCOSE [id number] 05:59:00 Test Item Value Reference Range Interpretation Comments POC-GLUCOSE METER 175 mg/dL 70-110 H TESTED AT [facility] 6720 (BEAKER) (test code = SUR[place] 1538) [address] BLOOD GAS, [id number] 21:35:00 Test Item Value Reference Range Interpretation [...] (test code = 1819) 60.0 % POCT-GLUCOSE [id number] 21:31:00 Test Item Value Reference Range Interpretation Comments POC-GLUCOSE METER 194 mg/dL 70-110 H TESTED AT [facility] 6720 (BEAKER) (test code = SURAJ Colon [place] 1538) [address] OXYGEN SATURATION, [id number] 19:33:00 Test Item Value Reference Range Interpretation Comments O2 SATURATION (MEASURED) (BEAKER) 68.6 % (test code = 1455) For occult hypoperfusionLACTIC ACID, VENOUS, WHOLE [id number] 16:49:00 Test Item Value Reference Range Interpretation Comments LACTATE BLOOD VENOUS (2) (BEAKER) 1.0 mmol/L 0.5-2.2 (test code = 2872) BLOOD GAS, [id number] 16:43:00 Test Item Value Reference Range Interpretation [...] 60.0 % CBC W/PLT COUNT & AUTO [id number] 16:37:00 Test Item Value Reference Range Interpretation [...] 3438) Received comment: User comments: Slide comments:POCT-GLUCOSE [id number] 16:30:00 Test Item Value Reference Range Interpretation Comments POC-GLUCOSE METER 239 mg/dL 70-110 H TESTED AT [facility] 6720 (BEAKER) (test code = [place] 1538) [address] BLOOD GAS, [id number] 13:33:00 Test Item Value Reference Range Interpretation [...] (BEAKER) (test code = 1819) 32.0 % [id number] 13:09:00 Test Item Value Reference Range Interpretation Comments MAGNESIUM (BEAKER) 2.2 mg/dL 1.6-2.6 Specimen slightly (test code = 627) hemolyzed BASIC METABOLIC [id number] 13:09:00 Test Item Value Reference Range Interpretation [...] NOT APPLICABLE FOR DIALYSIS PATIEN TS. CALCIUM, [id number] 12:44:00 Test Item Value Reference Range Interpretation Comments CALCIUM IONIZED (BEAKER) (test 1.14 mmol/L 1.12-1.27 code = 698) PH, BLOOD (BEAKER) (test code = 7.34 1810) [id number] 11:12:00 Test Item Value Reference Range Interpretation Comments MAGNESIUM (BEAKER) (test code = 2.1 mg/dL 1.6-2.6 627) Check Serum Magnesium level 2 hours after IV magnesium replacement.GLUCOSE-STAT [id number] 11:00:00 Test Item Value Reference Range Interpretation Comments GLUCOSE RANDOM (BEAKER) (test code 194 mg/dL 70-110 H = 652) HGB/HCT (H&H) - STAT [id number] 11:00:00 Test Item Value Reference Range Interpretation Comments HEMOGLOBIN (BEAKER) (test code = 12.5 g/dL 13.0-16.8 L 410) HEMATOCRIT (BEAKER) (test code = 37.0 % 40.0-50.0 L 411) SODIUM NA-STAT [id number] 10:58:00 Test Item Value Reference Range Interpretation Comments SODIUM (BEAKER) (test code = 381) 138 meq/L 135-148 POTASSIUM-STAT [id number] 10:58:00 Test Item Value Reference Range Interpretation Comments POTASSIUM (BEAKER) (test code = 4.2 meq/L 3.6-5.5 379) CBC W/PLT COUNT & AUTO [id number] 09:53:00 Test Item Value Reference Range Interpretation [...] 0-1 PERCENT (BEAKER) (test code = 2801) [id number] 05:10:00 Test Item Value Reference Range Interpretation Comments MAGNESIUM (BEAKER) 2.3 mg/dL 1.6-2.6 Specimen slightly (test code = 627) hemolyzed [id number] 05:10:00 Test Item Value Reference Range Interpretation Comments PHOSPHORUS (BEAKER) 3.9 mg/dL 2.3-4.7 Specimen slightly (test code = 604) hemolyzed BASIC METABOLIC [id number] 05:10:00 Test Item Value Reference Range Interpretation [...] PATIEN TS. RAD, CHEST, 1 VIEW, NON [id number] 04:15:00while patient is intubated or has chest [...] MDReport Verified Date/Time: 07/07/2018 04:15:31 Reading Location: [address] Reading Room POCT-GLUCOSE [id number] 22:22:00 Test Item Value Reference Range Interpretation Comments POC-GLUCOSE METER 208 mg/dL 70-110 H TESTED AT [facility] 6720 ([facility]) (test code = SURAJ Colon [facility] 1538) [address] BLOOD GAS, [id number] 20:12:00 Test Item Value Reference Range Interpretation [...] 40.0 % CBC W/PLT COUNT & AUTO [id number] 19:32:00 Test Item Value Reference Range Interpretation [...] (BEAKER) (test code Normal = 486) POCT-GLUCOSE [id number] 18:56:00 Test Item Value Reference Range Interpretation Comments POC-GLUCOSE METER 206 mg/dL 70-110 H TESTED AT [facility] 6720 (BEAKER) (test code = [place] 1538) [address] BASIC METABOLIC [id number] 17:20:00 Test Item Value Reference Range Interpretation [...] DIALYSIS PATIEN TS. LACTIC ACID, ARTERIAL, WHOLE [id number] 16:50:00 Test Item Value Reference Range Interpretation Comments LACTATE BLOOD ARTERIAL (2) 1.2 mmol/L 0.5-2.2 (BEAKER) (test code = 2874) [id number] 16:45:00 Test Item Value Reference Range Interpretation Comments MAGNESIUM (BEAKER) 2.7 mg/dL 1.6-2.6 H Specimen slightly (test code = 627) hemolyzed [id number] 16:45:00 Test Item Value Reference Range Interpretation Comments PHOSPHORUS (BEAKER) 3.6 mg/dL 2.3-4.7 Specimen slightly (test code = 604) hemolyzed [id number] 16:45:00 Test Item Value Reference Range Interpretation Comments POTASSIUM (BEAKER) 5.1 meq/L 3.5-5.1 Specimen slightly (test code = 379) hemolyzed [id number] 16:45:00 Test Item Value Reference Range Interpretation Comments SODIUM (BEAKER) (test code = 381) 137 meq/L 136-145 [id number] 16:45:00 Test Item Value Reference Range Interpretation Comments GLUCOSE RANDOM (BEAKER) (test code 193 mg/dL 70-105 H = 652) [id number] 16:39:00 Test Item Value Reference Range Interpretation [...] is 2.5-3.5 for patients with mechanical heart valves.[id number] 16:39:00 Test Item Value Reference Range Interpretation Comments FIBRINOGEN LEVEL (BEAKER) (test 282 mg/dl 225-434 code = 658) PROTHROMBIN [id number] 16:38:00 Test Item Value Reference Range Interpretation [...] mechanical heart valves.RAD, CHEST, 1 VIEW, NON [id number] 16:16:00Reason for exam:->s/p CABGShould this be performed [...] Lopezeport Verified Date/Time: 07/06/2018 16:16:23 Reading Location: [facility] Radiology Reading Room EN SATURATION, [id number] 16:00:00 Test Item Value Reference Range Interpretation Comments O2 SATURATION (MEASURED) (BEAKER) 64.6 % (test code = 1455) BLOOD GAS, [id number] 15:59:00 Test Item Value Reference Range Interpretation [...] (BEAKER) (test code = 1819) 50.0 % [id number] 15:14:00 Test Item Value Reference Range Interpretation Comments ACTIVATED CLOTTING TIME 103 sec TEST ED AT [place] [address] ([facility]) (test code = SURAJ Colon [place] 441) [address] [id number] 15:14:00 Test Item Value Reference Range Interpretation Comments ACTIVATED CLOTTING TIME 423 sec TEST ED AT [place] [address] ([facility]) (test code = SURAJ Colon [place] [address]) [address] [id number] 15:14:00 Test Item Value Reference Range Interpretation Comments ACTIVATED CLOTTING TIME 384 sec TEST ED AT [place] [address] ([facility]) (test code = SURAJ Colon [place] 441) [address] THROMBOELASTOGRAPH (TEG)2018-07-06 15:08:00 Test Item Value Reference [...] 0.0 % 0.0-5.0 code = 1414) PLATELET [id number] 14:31:00 Test Item Value Reference Range Interpretation Comments PLATELET COUNT (BEAKER) (test 125 K/CU MM 150-450 L code = 756) [id number] 14:18:00 Test Item Value Reference Range Interpretation Comments FIBRINOGEN LEVEL (BEAKER) (test 406 mg/dl 225-434 code = 658) [id number] 14:18:00 Test Item Value Reference Range Interpretation Comments PARTIAL THROMBOPLASTIN TIME 24.4 seconds 22.5-36.0 (BEAKER) (test code = 760) PROTHROMBIN [id number] 14:17:00 Test Item Value Reference Range Interpretation Comments PROTIME (BEAKER) (test code = 14.1 seconds 11.7-14.7 759) INR (BEAKER) (test code = 370) 1.1 <=5.9 RECOMMENDED COUMADIN/WARFARIN INR THERAPY RANGESSTANDARD DOSE: 2.0 - 3.0 Includes: PROPHYLAXIS for venous thrombosis, systemic embolization; TREATMENT for venous thrombosis and/or pulmonary embolus.HIGH RISK: Target INR is 2.5-3.5 for patients with mechanical heart valves.GLUCOSE-STAT [id number] 14:03:00 Test Item Value Reference Range Interpretation Comments GLUCOSE RANDOM (BEAKER) (test code 165 mg/dL 70-110 H = 652) SODIUM NA-STAT [id number] 14:03:00 Test Item Value Reference Range Interpretation Comments SODIUM (BEAKER) (test code = 381) 133 meq/L 135-148 L HGB/HCT (H&H) - STAT [id number] 14:03:00 Test Item Value Reference Range Interpretation Comments HEMOGLOBIN (BEAKER) (test code = 12.5 g/dL 13.0-16.8 L 410) HEMATOCRIT (BEAKER) (test code = 37.0 % 40.0-50.0 L 411) POTASSIUM-STAT [id number] 14:02:00 Test Item Value Reference Range Interpretation Comments POTASSIUM (BEAKER) (test code = 4.4 meq/L 3.6-5.5 379) BLOOD GAS, [id number] 14:02:00 Test Item Value Reference Range Interpretation [...] code = 1819) 100.0 % BLOOD GAS, [id number] 13:22:00 Test Item Value Reference Range Interpretation Comments PH VENOUS (BEAKER) 7.34 7.32-7.42 This is a corrected (test code = 701) result. Pr evious result was 7.36 on 07/06/2018 at 13 13 [place] PCO2 VENOUS (BEAKER) 46 mmHg 41-51 This is a corrected (test code = 755) result. Pr evious result was 44 m mHg on 07/06/2018 at 1313 [place] PO2 VENOUS (BEAKER) 46 mmHg 25-40 H This is a corrected (test code = 702) result. Pr evious result was 282 mmHg on 07/06/2018 at 1313 [place] O2 SATURATION VENOUS 93.4 % 40.0-70.0 H This is a corrected (BEAKER) (test code = result . Previous 703) result was 99.6 % on 07/06/2018 at 13 13 [place] HCO3 VENOUS (BEAKER) 27 mmol/L 21-29 (test code = 705) BASE EXCESS VENOUS -1.8 mmol/L -2.0-3.0 (BEAKER) (test code = 704) PATIENT TEMPERATURE 28.2 C (BEAKER) (test code = 1818) FIO2 (BEAKER) (test 65.0 % code = 1819) BLOOD GAS, [id number] 13:15:00 Test Item Value Reference Range Interpretation [...] code = 1819) 65.0 % SODIUM NA-STAT [id number] 13:15:00 Test Item Value Reference Range Interpretation Comments SODIUM (BEAKER) (test code = 381) 132 meq/L 135-148 L GLUCOSE-STAT [id number] 13:15:00 Test Item Value Reference Range Interpretation Comments GLUCOSE RANDOM (BEAKER) (test code 183 mg/dL 70-110 H = 652) HGB/HCT (H&H) - STAT [id number] 13:15:00 Test Item Value Reference Range Interpretation Comments HEMOGLOBIN (BEAKER) (test code = 11.4 g/dL 13.0-16.8 L 410) HEMATOCRIT (BEAKER) (test code = 34.0 % 40.0-50.0 L 411) POTASSIUM-STAT [id number] 13:14:00 Test Item Value Reference Range Interpretation Comments POTASSIUM (BEAKER) (test code = 3.9 meq/L 3.6-5.5 379) SODIUM NA-STAT [id number] 13:07:00 Test Item Value Reference Range Interpretation Comments SODIUM (BEAKER) (test code = 381) 138 meq/L 135-148 POTASSIUM-STAT [id number] 13:07:00 Test Item Value Reference Range Interpretation Comments POTASSIUM (BEAKER) (test code = 4.1 meq/L 3.6-5.5 379) HGB/HCT (H&H) - STAT [id number] 13:07:00 Test Item Value Reference Range Interpretation Comments HEMOGLOBIN (BEAKER) (test code = 14.7 g/dL 13.0-16.8 410) HEMATOCRIT (BEAKER) (test code = 43.0 % 40.0-50.0 411) BLOOD GAS, [id number] 13:07:00 Test Item Value Reference Range Interpretation [...] -2.0-3.0 (test code = 387) PATIENT TEMPERATURE ([facility]) 36.4 C (test code = 1818) FIO2 ([facility]) (test code = 1819) 100.0 % GLUCOSE-STAT [id number] 13:07:00 Test Item Value Reference Range Interpretation Comments GLUCOSE RANDOM ([facility]) (test code 157 mg/dL 70-110 H = 652) CALCIUM, [id number] 13:06:00 Test Item Value Reference Range Interpretation Comments CALCIUM IONIZED ([facility]) (test 1.13 mmol/L 1.12-1.27 code = 698) PH, BLOOD ([facility]) (test code = 7.23 1810) [id number] 12:49:00 Test Item Value Reference Range Interpretation Comments ACTIVATED CLOTTING TIME 472 sec TEST ED AT [place] [address] ([facility]) (test code = [facility] 441) [id number] POCT-GLUCOSE [id number] 08:01:00 Test Item Value Reference Range Interpretation Comments POC-GLUCOSE METER 201 mg/dL 70-110 H TESTED AT [place] [address] ([facility]) (test code = [facility] 1538) [address] [id number] 06:43:00 Test Item Value Reference Range Interpretation Comments PARTIAL THROMBOPLASTIN TIME 109.3 seconds 22.5-36.0 H ([facility]) (test code = 760) CBC W/PLT COUNT & AUTO [id number] 06:24:00 Test Item Value Reference Range Interpretation Comments WHITE BLOOD CELL COUNT ([facility]) 6.2 K/ L 3.5-10.5 (test code = 775) RED BLOOD CELL COUNT ([facility]) 4.68 M/ L 4.63-6.08 (test code = 761) HEMOGLOBIN (BEAKER) (test code = 15.1 GM/DL 13.7-17.5 410) HEMATOCRIT (AKER) (test code = 45.4 % 40.1-51.0 411) MEAN CORPUSCULAR VOLUME ([facility]) 97.0 fL 79.0-92.2 H (test code = [...] 0-1 PERCENT (BEAKER) (test code = 2801) [id number] 01:14:00 Test Item Value Reference Range Interpretation Comments PARTIAL THROMBOPLASTIN TIME 90.5 seconds 22.5-36.0 H (BEAKER) (test code = 760) 6 hours after starting heparin infusion and as indicated per sliding scale PROTHROMBIN [id number] 01:12:00 Test Item Value Reference Range Interpretation [...] heparin infusion and as indicated per sliding [id number] 01:02:00 Test Item Value Reference Range Interpretation Comments MAGNESIUM (BEAKER) 2.9 mg/dL 1.6-2.6 H Specimen slightly (test code = 627) hemolyzed COMPREHENSIVE METABOLIC [id number] 01:02:00 Test Item Value Reference Range Interpretation [...] Specimen markedly lipemicCBC W/PLT COUNT & AUTO [id number] 00:44:00 Test Item Value Reference Range Interpretation [...] EOSINOPHILS ABSOLUTE COUNT 0.23 K/ L 0.04-0.54 ([facility]) (test code = 416) BASOPHILS ABSOLUTE COUNT ([facility]) 0.06 K/ L 0.01-0.08 (test code = 417) IMMATURE GRANULOCYTES-RELATIVE 1 % 0-1 PERCENT ([facility]) (test code = 2801) POCT-GLUCOSE [id number] 21:33:00 Test Item Value Reference Range Interpretation Comments POC-GLUCOSE METER 286 mg/dL 70-110 H TESTED AT [place] [address] ([facility]) (test code = [facility] 1538) [address] [id number] 19:12:00 Test Item Value Reference Range Interpretation Comments PARTIAL THROMBOPLASTIN TIME 64.6 seconds 22.5-36.0 H ([facility]) (test code = 760) POCT-GLUCOSE [id number] 18:10:00 Test Item Value Reference Range Interpretation Comments POC-GLUCOSE METER 165 mg/dL 70-110 H TESTED AT [place] [address] ([facility]) (test code = [facility] 1538) [address] POCT-GLUCOSE [id number] 12:50:00 Test Item Value Reference Range Interpretation Comments POC-GLUCOSE METER 152 mg/dL 70-110 H TESTED AT [place] [address] ([facility]) (test code = [facility] 1538) [address] HEMOGLOBIN [id number] 10:06:00 Test Item Value Reference Range Interpretation Comments HEMOGLOBIN A1C ([facility]) (test code = 7.0 % 4.3-6.1 H 368) [id number] 09:01:00 Test Item Value Reference Range Interpretation Comments PARTIAL THROMBOPLASTIN TIME 68.3 seconds 22.5-36.0 H ([facility]) (test code = 760) PLATELET AGGREGATION: FUNCTION [id number] 08:44:00 Test Item Value Reference Range Interpretation Comments WEAK ADP 84 % 60-91 RESULT([facility]) (test code = 2135) PLATELET FUNCTION 60-100% indicates SCREEN INTERP ([facility]) normal platelet (test code = 2173) function [id number] Cindy Velasquez MD ([facility]) (test code = (electronic signature) 2322) PLATELET COUNT AGG 175 K/CU MM 150-450 (BEAKER) (test code = 2656) Platelet Function Screen results may be falsely low with platelet counts<100,000/cu mm.POCT-GLUCOSE [id number] 08:23:00 Test Item Value Reference Range Interpretation Comments POC-GLUCOSE METER 185 mg/dL 70-110 H TESTED AT [facility] 6720 (BEAKER) (test code = [place] 1538) [address] RAD, CHEST, 1 VIEW, NON [id number] 04:51:00Reason for exam:- >dyspneaShould this be performed [...] MDReport Verified Date/Time: 07/05/2018 04:51:23 Reading Location: [address] Reading Room B-TYPE NATRIURETIC FACTOR (BNP)2018-07-05 02:51:00 Test Item Value Reference Range Interpretation Comments B-TYPE NATRIURETIC PEPTIDE (BEAKER) 44 pg/mL 0-100 (test code = 700) [id number] 02:44:00 Test Item Value Reference Range Interpretation Comments MAGNESIUM (BEAKER) (test code = 2.3 mg/dL 1.6-2.6 627) BASIC METABOLIC [id number] 02:44:00 Test Item Value Reference Range Interpretation [...] I S NOT APPLICABLE FOR DIALYSIS PATIBARRERA VENEGAS [id number] 02:42:00 Test Item Value Reference Range Interpretation Comments PARTIAL THROMBOPLASTIN TIME 63.2 seconds 22.5-36.0 H (BEAKER) (test code = 760) CBC W/PLT COUNT & AUTO [id number] 02:26:00 Test Item Value Reference Range Interpretation [...] PERCENT (BEAKER) (test code = 2801) POCT-GLUCOSE [id number] 21:12:00 Test Item Value Reference Range Interpretation Comments POC-GLUCOSE METER 204 mg/dL 70-110 H TESTED AT [facility] 6720 (BEAKER) (test code = [place] 1538) [address] TSH/FREE T4 IF [id number] 19:43:00 Test Item Value Reference Range Interpretation Comments THYROID STIMULATING HORMONE 4.44 uIU/mL 0.35-4.94 (BEAKER) (test code = 772) LIPID [id number] 19:23:00 Test Item Value Reference Range Interpretation [...] 130-159 High 160-189 Very High >=190HEPATIC FUNCTION [id number] 19:23:00 Test Item Value Reference Range Interpretation [...] code = 72 U/L 6-55 H 347) [id number] 19:21:00 Test Item Value Reference Range Interpretation [...] mechanical heart valves.CBC W/PLT COUNT & AUTO [id number] 19:05:00 Test Item Value Reference Range Interpretation [...] % 0-1 PERCENT (BEAKER) (test code = 8160)
[2022-10-12 09:56] LABS: Absolute Lymphocytes (CBC) 1.8 K/uL (0.7-4.9); Hematocrit 47.2 % (39.6-49.0); Lymphocytes % 29.8 % (15.3-44.8); MCV 92.8 fL (80-100); MPV 7.4 fL (7.6-11.3); RBC Red Blood Cell Count 5.09 M/uL (4.33-5.43)
[2022-10-12 09:57] LABS: Protime INR 1.05
[2022-10-12 10:13] LABS: Bilirubin Direct 0.3 mg/dL (0-0.2); Bilirubin Total 0.9 mg/dL (0.2-1.0); Magnesium 2.4 mg/dL (1.6-2.4); Potassium 4.2 mmol/L (3.5-5.1); Protein, Total 7.1 g/dL (6.4-8.2); Troponin High Sensitivity 7.6 pg/mL (<58.9)
--- NOTE | 2022-10-12 10:42 | RAD REPORT ---
EXAM DESCRIPTION: RAD - Chest Single View - 10/12/2022 10:31 am CLINICAL HISTORY: CHEST PAIN COMPARISON: Chest Single View dated 04/16/2022; Chest Single View dated 05/12/2021; Chest Single View dated 05/05/2021; Chest Single View dated 06/28/2020 FINDINGS: Lines: None. Lungs: No evidence of edema or pneumonia. Pleural: No significant pleural effusions or pneumothorax. Cardiac: Similar enlargement of the cardiopericardial silhouette. Mediastinum: Within normal limits. Bones: No acute fractures. Other: Sternotomy. IMPRESSION: No acute cardiopulmonary disease.
--- NOTE | 2022-10-12 14:31 | ER ---
Nurse's Notes [facility] Name: Drake Vallejo Age: 57 yrs Sex: Male : 1965 Arrival Date: 10/12/2022 Time: 09:19 Bed 23 Private MD: Francisco Javier Gar; Ferny Willoughby S Diagnosis: Chest pain, unspecified Presentation: 10/12 09:30 Chief complaint: Patient states: Intermittent mid sternal CP since this morning, feels aa5 like pressure. Coronavirus screen: Vaccine status: Patient reports receiving the 2nd dose of the covid vaccine. At this time, the client does not indicate any symptoms associated with coronavirus-19. 09:30 Method Of Arrival: Ambulatory aa5 09:30 Ebola Screen: No symptoms or risks identified at this time. Initial Sepsis Screen: Does aa5 the patient meet any 2 criteria? No. Patient's initial sepsis screen is negative. Does the patient have a suspected source of infection? No. Patient's initial sepsis screen is negative. Risk Assessment: Do you want to hurt yourself or someone else? Patient reports no desire to harm self or others. Onset of symptoms was October 12, 2022. 09:30 Acuity: TERI 2 aa5 Triage Assessment: 09:40 General: Appears in no apparent distress. uncomfortable, Behavior is calm, cooperative, aa5 appropriate for age. Pain: Complains of pain in mid-sternal area Pain currently is 4 out of 10 on a pain scale. Cardiovascular: Patient's skin is warm and dry. Historical: - Allergies: 09:40 hydrocet; aa5 09:40 NKDA; aa5 - Home Meds: 09:40 aspirin 81 mg Oral TbEC 1 tab once daily [Active]; Jardiance 25 mg oral tab 1 tab once aa5 daily [Active]; Ozempic 1 mg/dose (2 mg/1.5 mL) subcutaneous pnij once wkly [Active]; Crestor 40 mg oral tab [Active]; levothyroxine oral [Active]; - PMHx: 09:40 Bipolar disorder; CAD; Depression; Diabetes - NIDDM; Hypertension; Myocardial aa5 infarction; X8; Hypothyroidism; - PSHx: 09:40 Coronary artery bypass graft; Heart Stents; x7; r knee SX; aa5 - Immunization history:: Client reports receiving the 2nd dose of the Covid vaccine. - Social history:: Smoking status: Patient denies any tobacco usage or history of. Screenin:45 [facility] ED Fall Risk Assessment (Adult) History of falling in the last 3 months, bp including since admission No falls in past 3 months (0 pts). Abuse screen: Denies threats or abuse. Denies injuries from another. Nutritional screening: No deficits noted. Tuberculosis screening: No symptoms or risk factors identified. Assessment: 09:45 General: SEE TRIAGE NOTE. bp 11:20 Reassessment: Patient appears in no apparent distress at this time. Patient is alert, bp oriented x 3, equal unlabored respirations, skin warm/dry/pink. 12:59 Reassessment: No changes from previously documented assessment. Patient and/or family bp updated on plan of care and expected duration. Pain level reassessed. 14:21 Reassessment: REPEAT TROP UNREMARKABLE. jl7 14:58 Reassessment: DC HOME AMBULATORY. bp Vital Signs: 09:30 BP 157 / 114; Pulse 63; Resp 19; Temp 97.9; Pulse Ox 98% on R/A; Weight 104.33 kg (R); aa5 Height 5 ft. 11 in. (180.34 cm) (R); Pain 4/10; 10:18 BP 153 / 96; Pulse 62; Resp 17; Pulse Ox 94% ; bp 11:19 BP 155 / 96; Pulse 61; Resp 17; Pulse Ox 95% ; bp 12:59 BP 145 / 98; Pulse 66; Resp 16; Pulse Ox 96% ; bp 14:20 BP 133 / 92; Pulse 74; Resp 19; Pulse Ox 96% ; jl7 09:30 Body Mass Index 32.08 (104.33 kg, 180.34 cm) aa5 ED Course: 09:19 Patient arrived in ED. as 09:19 Ferny Willoughby MD is Private Physician. as 09:19 Francisco Javier Gar is Private Physician. as 09:20 Nicholas Angel PA is PHCP. [facility] 09:20 Sky Rivera DO is Attending Physician. jm 09:38 Rey Garcia, RAINA is Primary Nurse. bp 09:40 Triage completed. aa5 09:40 Arm band placed on right wrist. Patient placed in an exam room, on a stretcher, on aa5 cardiac monitor technician, on pulse oximetry. EKG completed in triage. Results shown to MD. 09:45 Patient has correct armband on for positive identification. Bed in low position. Call bp light in reach. Side rails up X2. Client placed on continuous cardiac and pulse oximetry monitoring. NIBP monitoring applied. 09:45 Inserted saline lock: 20 gauge in right forearm, using aseptic technique. Blood bp collected. 09:45 Patient maintains SpO2 saturation greater than 95% on room air. bp 14:31 Elias Puente MD is Referral Physician. francesca 14:58 No provider procedures requiring assistance completed. IV discontinued, intact, bp bleeding controlled, No redness/swelling at site. Pressure dressing applied. Administered Medications: No medications were administered Medication: 14:58 VIS not applicable for this client. bp Outcome: 14:31 Discharge ordered by MD. francesca 14:58 Discharged to home ambulatory, with family. bp 14:58 Condition: stable 14:58 Discharge instructions given to patient, Instructed on discharge instructions, follow up and referral plans. Demonstrated understanding of instructions, follow-up care. 14:59 Patient left the ED. bp Signatures: Nicholas Angel PA PA Tere Villavicencio Audri, RN RN aa5 Brianne Winter RN RN jl7 Rey Garcia RN RN bp
--- NOTE | 2022-10-12 14:32 | EDPHYS ---
Physician Documentation [facility] Name: Drake Vallejo Age: 57 yrs Sex: Male : 1965 Arrival Date: 10/12/2022 Time: 09:19 Bed 23 Private MD: Francisco Javier Gar; Ferny Willoughby S ED Physician Sky Rivera HPI: 10/12 09:27 This 57 yrs old Male presents to ER via Ambulatory with complaints of Chest Pain. [facility] 09:27 The patient or guardian reports chest pain that is located primarily in the substernal [facility] area. Onset: gradually, 3 week(s) ago. Is a 57-year-old male with history of bipolar, coronary artery disease, diabetes mellitus, hypertension the presents emerged part with complaints of substernal chest pain described as pressure which has been ongoing for about 3 weeks but states the discomfort intensified this morning around 6 AM.. Historical: - Allergies: 09:40 hydrocet; aa5 09:40 NKDA; aa5 - Home Meds: 09:40 aspirin 81 mg Oral TbEC 1 tab once daily [Active]; Jardiance 25 mg oral tab 1 tab once aa5 daily [Active]; Ozempic 1 mg/dose (2 mg/1.5 mL) subcutaneous pnij once wkly [Active]; Crestor 40 mg oral tab [Active]; levothyroxine oral [Active]; - PMHx: 09:40 Bipolar disorder; CAD; Depression; Diabetes - NIDDM; Hypertension; Myocardial aa5 infarction; X8; Hypothyroidism; - PSHx: 09:40 Coronary artery bypass graft; Heart Stents; x7; r knee SX; aa5 - Immunization history:: Client reports receiving the 2nd dose of the Covid vaccine. - Social history:: Smoking status: Patient denies any tobacco usage or history of. ROS: 09:27 Constitutional: Negative for fever, chills, and weight loss. jmm 09:27 Cardiovascular: Positive for chest pain. 09:27 Respiratory: Positive for shortness of breath. 09:27 All other systems are negative. Exam: 09:27 Constitutional: This is a well developed, well nourished patient who is awake, alert, jmm and in no acute distress. Head/Face: atraumatic. Eyes: EOMI, no conjunctival erythema appreciated ENT: Moist Mucus Membranes Neck: Trachea midline, Supple Chest/axilla: Normal chest wall appearance and motion. Cardiovascular: Regular rate and rhythm. No edema appreciated Respiratory: Normal respirations, no respiratory distress appreciated Abdomen/GI: Non distended Back: Normal ROM Skin: General appearance color normal MS/ Extremity: Moves all extremities, no obvious deformities appreciated, no edema noted to the lower extremities Neuro: Awake and alert Psych: Behavior is normal, Mood is normal, Patient is cooperative and pleasant Vital Signs: 09:30 BP 157 / 114; Pulse 63; Resp 19; Temp 97.9; Pulse Ox 98% on R/A; Weight 104.33 kg (R); aa5 Height 5 ft. 11 in. (180.34 cm) (R); Pain 4/10; 10:18 BP 153 / 96; Pulse 62; Resp 17; Pulse Ox 94% ; bp 11:19 BP 155 / 96; Pulse 61; Resp 17; Pulse Ox 95% ; bp 12:59 BP 145 / 98; Pulse 66; Resp 16; Pulse Ox 96% ; bp 14:20 BP 133 / 92; Pulse 74; Resp 19; Pulse Ox 96% ; jl7 09:30 Body Mass Index 32.08 (104.33 kg, 180.34 cm) aa5 MDM: 09:27 Patient medically screened. [facility] 14:28 Data reviewed: vital signs, lab test result(s), EKG, radiologic studies, plain films. [facility] 14:28 Consideration of Admission/Observation. Management of patient was discussed with the [facility] following: Dr. Puente. ED course: Labs and imaging studies were negative. I did discuss the case with Dr. Puente whom recommended outpatient follow-up for stress test. Patient otherwise given strict return precautions. Patient understood and agreed.. 10/12 09:27 Order name: Basic Metabolic Panel [facility] 10/12 09:27 Order name: CBC with Diff [facility] 10/12 09:27 Order name: LFT's [facility] 10/12 09:27 Order name: Magnesium [facility] 10/12 09:27 Order name: NT PRO-BNP [facility] 10/12 09:27 Order name: PT-INR [facility] 10/12 09:27 Order name: Troponin HS [facility] 10/12 09:58 Order name: Protime (+INR); Complete Time: 10:10 [facility] 10/12 10:02 Order name: CBC with Automated Diff; Complete Time: 10:10 [facility] 10/12 10:13 Order name: Basic Metabolic Panel; Complete Time: 10:13 [facility] 10/12 10:13 Order name: Liver (Hepatic) Function; Complete Time: 10:13 [facility] 10/12 10:13 Order name: Troponin High Sensitivity; Complete Time: 10:13 [facility] 10/12 10:13 Order name: NT PRO-BNP; Complete Time: 10:13 [facility] 10/12 10:13 Order name: Magnesium; Complete Time: 10:13 [facility] 10/12 09:27 Order name: XRAY Chest (1 view) [facility] 10/12 09:27 Order name: EKG; Complete Time: 09:28 [facility] 10/12 09:27 Order name: Cardiac monitoring; Complete Time: 09:39 [facility] 10/12 09:27 Order name: EKG - Nurse/Tech; Complete Time: 09:39 [facility] 10/12 09:27 Order name: IV Saline Lock; Complete Time: 09:46 [facility] 10/12 09:27 Order name: Labs collected and sent; Complete Time: 09:46 [facility] 10/12 09:27 Order name: O2 Per Protocol; Complete Time: 09:39 [facility] 10/12 09:27 Order name: O2 Sat Monitoring; Complete Time: 09:39 [facility] 10/12 10:43 Order name: RAD; Complete Time: 10:48 [facility] 10/12 11:25 Order name: Troponin High Sensitivity [facility] 10/12 12:25 Order name: Troponin High Sensitivity; Complete Time: 12:27 EDMS Administered Medications: No medications were administered Disposition: 18:07 Co-signature as Attending Physician, Sky CHAPA was immediately available on-site ms3 in the Emergency Department for consultation in the care of the patient. Disposition Summary: 10/12/22 14:31 Discharge Ordered Location: Home [facility] Condition: Stable [facility] Diagnosis - Chest pain, unspecified [facility] Followup: jm - With: Elias Puente MD - When: Tomorrow - Reason: Recheck today's complaints, Continuance of care, Re-evaluation by your physician Discharge Instructions: - Discharge Summary Sheet [facility] - Nonspecific Chest Pain, Adult [facility] Forms: - Medication Reconciliation Form [facility] - Thank You Letter jmm - Antibiotic Education jmm - Prescription Opioid Use jmm Signatures: Dispatcher [employer] Nicholas Henriquez PA PA jmm Calderon, Audri, RN RN aa5 Sky Rivera DO DO ms3
[2022-10-12 15:04] VITALS: TEMP 97.9
[2022-10-12 15:07] VITALS: O2SAT 96
[2022-10-12 15:08] VITALS: BP 133/92
--- NOTE | 2022-10-13 13:02 | EKG ---
Test Date: 2022-10-12 Test Time: 09:29:31 [employer]: YOUNG MEASUREMENT RESULTS: Intervals: Rate: 64 [place]: 164 QRSD: 96 QT: 450 QTc: 464 [place]: P: 14 [place]: 164 QRS: 101 T: 5 INTERPRETIVE STATEMENTS: Sinus rhythm with frequent premature ventricular complexes Possible Left atrial enlargement Rightward axis Cannot rule out Anterior infarct, age undetermined Abnormal ECG Compared to ECG 04/16/2022 12:24:38 Ventricular premature complex(es) now present Right-axis deviation now present Left-axis deviation no longer present Incomplete right bundle-branch block no longer present Myocardial infarct finding still present Electronically Signed On 10-13-22 12:59:16 LABORATORY ASST by Elias Puente
== END 2022-10-12 14:59 | disposition home or self-care (01) ==
LOC: ER 09:18
DX: R07.89 Other chest pain (principal); I10 Essential (primary) hypertension; E11.9 Type 2 diabetes mellitus without complications; E03.9 Hypothyroidism, unspecified; I25.2 Old myocardial infarction; Z95.1 Presence of aortocoronary bypass graft; Z95.818 Presence of other cardiac implants and grafts; Z79.82 Long term (current) use of aspirin; Z88.5 Allergy status to narcotic agent
CPT/HCPCS: 36415; 71045; 80048; 80076; 83735; 83880; 84484; 85025; 85610; 93005

== ENCOUNTER 2023-06-23 22:44 | Emergency (ER) | payer BC ==
--- OUTSIDE RECORDS SUMMARY | 2023-06-23 22:49 | XMS REPORT | Continuity of Care Document ---
:1965 Author Organization [facility] t Address [address] [place] [address] [place] [id number] Care Team Providers Name Role Phone MALLORY LEBLANC Primary Care Physician Unavailable SOREN WILSON Attending Clinician Unavailable DR MALLORY LEBLANC Attending Clinician Unavailable [phone] Attending Clinician Unavailable DR PATTI MARISCAL Attending Clinician Unavailable [phone] Attending Clinician Unavailable Soren Wilson MD Attending Clinician Tim Vyas MD Attending Clinician DONALDO JUSTICE Attending Clinician Unavailable SOREN WILSON Admitting Clinician Unavailable DR MALLORY LEBLANC Admitting Clinician Unavailable DR PATTI MARISCAL Admitting Clinician Unavailable DONALDO JUSTICE Admitting Clinician Unavailable Payers Payer Name Policy Type Policy Number Effective Date Expiration Date S helen BLUE CROSS BLUE [id number] SHIELD - OP BCBS PPO POS EPO [id number] 2019 CHOICE 00:00:00 Problems Condition Condition Condition Status Onset Resolution Last Treating Co mments Source Name Details Category Date Date Treatment Clinician Date COVID-19 COVID-19 [facility] Coronary Coronary Disease Active 2017-08 [facility] disease disease 00:[facility]: [facility] involving involving [facility] [place] 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 pectoris pectoris Type 2 Type 2 Disease Recurre 2017-[address] [facility] diabetes diabetes nce 1-12 [facility] mellitus mellitus 00:00: Medica l 00 Center HTN HTN Disease Recurre 2017-[address] (hypertens (hypertens nce -12 [facility] ion) ion) 00:00: Medical 00 Center JOSE CRUZ JOSE CRUZ Disease Recurre 2017-[address] (obstructi (obstructi nce 12 [facility] ve sleep ve sleep 00:00: Medica l apnea) apnea) 00 Center Coronary Coronary Disease Active 2017-08 [facility]12 [facility] disease disease 00:00: Medical involving involving 00 [facility] [place] 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 pectoris pectoris Diastolic Diastolic Disease Active 2017-[address] CHF CHF 12 [facility] 00:[facility]: [facility] Center HLD HLD Disease Active 2017-[address] (hyperlipi (hyperlipi 12 [facility] demia) demia) 00:00: Medical 00 Center Postoperat Postoperat Disease Active 2017-[address] norma pain norma pain 09-06 [facility] 00[facility] 00 Center Other Other Disease Recurre 2017-[address] [facility] shock shock nce 08 [facility] 00:[facility] 00 Center Acute Acute Disease Active 2017-[address] [facility] respirator respirator 1-08 [facility] y y 00:00: Medical insufficie insufficie 00 Ce nter ncy ncy AMI (acute AMI (acute Disease Recurre 2017-[address] myocardial myocardial nce 1-06 [facility] infarction infarction 00:00: [facility] ) ) 00 Center Type 2 [...] S/P CABG x Disease Active [facility] [address] Allergies, Adverse Reactions, Alerts Allergy Allergy Status Severity Reaction(s) Onset Inactive Treating Comm ents Source Name Type Date Date Clinician HYDROCOD Allergy Active Other 2017-08 [facility] ONE-ACET 09-05 AMINOPHE 00:00: N 00 Hydrocod Propensi Active Other (See 2017-[address] one-Acet ty to Comments) 09-[address] [facility] aminophe adverse 00:00: Medical n reaction 00 Center s Family History Family Member Diagnosis Comments Start Date Stop Date Source Natural father Cancer [facility] Maternal grandmother Cancer [facility] Maternal grandmother Heart disease [facility] Maternal uncle Stroke [facility] Natural mother Diabetes [facility] Natural mother Heart disease [facility] Natural mother Hypertension [facility] Natural mother Stroke [facility] Paternal uncle Diabetes [facility] Social History Social Habit Start Date Stop Date Quantity Comments Source Gender identity [facility] History of tobacco Current smoker [facility] History SDOH [facility] Alcohol Frequency Medical Center History SDOH [facility] Alcohol Std Drinks Medica Center History SDOH [facility] Alcohol Binge Medical Tresa [facility] Sexual orientation [facility] Tobacco use and 2021-05-12 2021-05-[address] [facility] exposure 00:00:00 00:00:00 tobacco non-user Medical Center Alcohol intake 2021-05-12 2021-05-12 [facility] alcohol [facility] Center (finding) Tobacco Comment 2021-05-12 2021-05-12 stop smoking [address] [facility] 00:00:00 00:00:00 years ago Medical Center Alcohol Comment 2021-05-12 2021-05-12 only1, [address] [facility] 00:00:00 00:00:00 year Medical Center History of Social 2018-07-13 2018-07-[address] function 00:00:00 00:00:00 Hospital Sex Ass[birth year] At [birth year] [facility] 00:00:00 00:00:00 Medical Center Smoking Status Start Date Stop Date Source Former smoker Never smoker [facility] Medications Ordered Filled Start Stop Current Ordering Indication Dosage Frequency Signature Comments Components Source Medication Medication Date Date Medication? Clinician (SIG) Name Name Tory 2020- No 6mg QD Take [address] ne 05-14 tablet (6 [facility] (DECADRON) 00:00: 23:59 mg [...] mouth Medical capsule 57 daily. Center nitroglycer Yes .4mg Place 0.[address] in 9-15 mg under [facility] (NITROSTAT) 11:27: the Medica l 0.4 MG SL 57 tongue. Center tablet carvedilol Yes 25mg Take 25 mg C [...] mouth Medical capsule 57 daily. Center nitroglycer Yes .4mg Place 0.[address] in 9-15 mg under [facility] (NITROSTAT) 11:27: the Medica l 0.4 MG SL 57 tongue. Center tablet carvedilol Yes 25mg Take [address] (COREG) 25 9-15 by mouth 2 Loivia es MG tablet 11:27: (two) Medical 57 [...] 57 daily. Center 1000 MG tablet metFORMIN 0 Yes 500mg Take [address] (GLUCOPHAGE [...] mouth Medical capsule 57 daily. Center nitroglycer Yes .4mg Place 0.[address] in 9-15 mg under [facility] (NITROSTAT) 11:27: the Medica l 0.4 MG SL 57 tongue. Center tablet carvedilol Yes 25mg Take 25 mg C [...] 57 daily. Center 1000 MG tablet metFORMIN 0 Yes 500mg Take [address] (GLUCOPHAGE [...] mouth Medical capsule 57 daily. Center nitroglycer Yes .4mg Place 0.4 C HI [...] 80 MG 17:24: daily. Medical tablet 00 [place] aspirin 81 2017-08 Yes 81mg QD Take [...] 20:54: daily. Hospit a 18 l carvedilol Yes 25mg Q.5D Take 25 mg M ethodi (COREG) 25 3-[address] MG tablet 20:54: (two) Hospita 18 times a l day with meals. atorvastati Yes 40mg Q.5D Take 40 mg Methodi n (LIPITOR) 3-[address] 40 MG 20:54: (two) Hospita tablet 18 times a l day. aspirin Yes 81mg QD Take 81 mg Meth [...] tablet 20:54: daily. Hospit a 18 l ranitidine 2018-0 Yes 150mg Take 150 [...] mouth Hospi ta tablet 18 daily. l Vital Signs Vital Name Observation Time Observation Value Comments Source HEIGHT 2021-05-13 08:00:00 180.3 cm WEIGHT 2021-05-13 08:00:00 106.595 kg HEIGHT 2021-05-13 08:00:00 180.3 cm WEIGHT 2021-05-13 08:00:00 106.595 kg Body height 2021-05-13 08:00:00 180.3 cm [facility] Body weight 2021-05-13 08:00:00 106.595 kg [facility] BMI 2021-05-13 08:00:00 32.78 kg/m2 [facility] Oxygen saturation in 2021-05-13 07:26:00 94 /min [facility] Arterial blood by Medical Ce nter Pulse oximetry Systolic blood 2021-05-13 07:26:00 128 mm[Hg] [facility] Diastolic blood 2021-05-13 07:26:00 85 mm[Hg] [facility] Heart rate 2021-05-13 07:26:00 64 /min [facility] Body temperature 2021-05-13 07:26:00 36.22 Charlene [facility] Respiratory rate 2021-05-13 07:26:00 20 /min [facility] Procedures Procedure Date / Time Performed Performing Clinician [facility] e POCT-GLUCOSE METER 2021-05-13 07:43:00 Tim Vyas [facility] BASIC METABOLIC PANEL 2021-05-13 04:21:00 [facility] () [facility] HEPATIC FUNCTION PANEL 2021-05-13 04:21:00 [facility] HEMOGLOBIN A1C 2021-05-13 04:21:00 [facility] LIPID PANEL 2021-05-13 04:21:00 [facility] PROTHROMBIN TIME/INR 2021-05-13 04:21:00 [facility] CBC W/PLT COUNT & AUTO 2021-05-13 04:21:00 [facility] C-REACTIVE PROTEIN 2021-05-13 04:21:00 [facility] FERR[facility] 2021-05-13 04:21:00 [facility] D-DIMER 2021-05-13 04:21:00 [facility] CBC W/PLT COUNT & AUTO 2021-05-13 04:21:00 [facility] PO[facility]-GLUCOSE METER 2021-05-12 19:38:00 Katie [facility] POCT-GLUCOSE METER 2021-05-12 16:42:00 Katie [facility] Plan of Care Planned Activity Planned Date Details Comments Source Future Scheduled 2024-05-13 Lipid panel (procedure) [facility] Test 00:00:00 [code = 65973335] Medical Ce nter Future Scheduled 2024-05-13 Lipid panel (procedure) [facility] 00:00:00 [code = 53384359] Medical Ce nter Future Scheduled 2024-05-13 Lipid panel (procedure) [facility] 00:00:00 [code = 93435247] Medical Ce nter Future Scheduled 2024-05-13 Lipid panel (procedure) [facility] 00:00:00 [code = 03066823] Medical Ce nter Future Scheduled 2023-06-23 Screening for malignant [facility] 12:45:10 neoplasm of colon Hospital (procedure) [code = 402657430] Future Scheduled 2023-06-23 Screening for malignant [facility] 12:45:10 neoplasm of colon Hospital (procedure) [code = 466709696] Future Scheduled 2023-06-23 Screening for malignant [facility] 12:45:10 neoplasm of colon Hospital (procedure) [code = 507289513] Future Scheduled 2023-06-23 COVID-19 VACCINE (#1) [facility] 12:45:10 [code = COVID-19 VACCINE Hos pital (#1)] Future Scheduled 2023-06-23 Screening for malignant [facility] 12:45:10 neoplasm of colon Hospital (procedure) [code = 712695081] Future Scheduled 2023-06-23 Screening for malignant [facility] 12:45:10 neoplasm of colon Hospital (procedure) [code = 598960893] Future Scheduled 2023-06-23 SHINGLES VACCINES (1 of [facility] 12:45:10 2) [code = SHINGLES Hospital VACCINES (1 of 2)] Future Scheduled 2023-06-23 INFLUENZA VACCINE (#1) M [facility]ist Test 12:45:10 [code = INFLUENZA VACCINE Ho spital (#1)] Future Scheduled 2023-04-29 INFLUENZA VACCINE (Season [facility] 00:00:00 Ended) [code = INFLUENZA Med ical Center VACCINE (Season Ended)] Future Scheduled 2023-04-29 Influenza Vaccine (#1) [facility] 00:00:00 [code = Influenza Vaccine Me dical Center (#1)] Future Scheduled 2023-03-31 Screening for malignant [facility] 20:16:05 neoplasm of colon Hospital (procedure) [code = 111383323] Future Scheduled 2023-03-31 Screening for malignant [facility] 20:16:05 neoplasm of colon Hospital (procedure) [code = 404358542] Future Scheduled 2023-03-31 Screening for malignant [facility] 20:16:05 neoplasm of colon Hospital (procedure) [code = 600473684] Future Scheduled 2023-03-31 COVID-19 VACCINE (#1) [facility] 20:16:05 [code = COVID-19 VACCINE Hos pital (#1)] Future Scheduled 2023-03-31 Screening for malignant [facility] 20:16:05 neoplasm of colon Hospital (procedure) [code = 508917903] Future Scheduled 2023-03-31 Screening for malignant [facility] 20:16:05 neoplasm of colon Hospital (procedure) [code = 202042198] Future Scheduled 2023-03-31 SHINGLES VACCINES (1 of [facility] 20:16:05 2) [code = SHINGLES Hospital VACCINES (1 of 2)] Future Scheduled 2023-03-31 INFLUENZA VACCINE [code = [facility] 20:16:05 INFLUENZA VACCINE] Hospital Future Scheduled 2023-01-14 COVID-19 VACCINE (#1) [facility] 08:55:05 [code = COVID-19 VACCINE Hos pital (#1)] Future Scheduled 2023-01-14 COLONOSCOPY SCREENING [facility] 08:55:05 [code = COLONOSCOPY Hospital SCREENING] Future Scheduled 2023-01-14 SHINGLES VACCINES (1 of [facility] 08:55:05 2) [code = SHINGLES Hospital VACCINES (1 of 2)] Future Scheduled 2023-01-14 INFLUENZA VACCINE [code = [facility] 08:55:05 INFLUENZA VACCINE] Hospital Future Scheduled 2022-08-[address] [facility] Test 00:00:00 (12+) [code = DEPRESSION Med ical Center SCREENING (12+)] Future Scheduled 2022-08-[address] [facility] Test 00:00:00 (12+) [code = DEPRESSION Med ical Center SCREENING (12+)] Future Scheduled 2022-08-[address] [facility] Test 00:00:00 (12+) [code = DEPRESSION Med ical Center SCREENING (12+)] Future Scheduled 2022-08-12 COVID-19 VACCINE (#1) [facility] 23:26:50 [code = COVID-19 VACCINE Hos pital (#1)] Future Scheduled 2022-08-12 COLONOSCOPY SCREENING [facility] 23:26:50 [code = COLONOSCOPY Hospital SCREENING] Future Scheduled 2022-08-12 SHINGLES VACCINES (1 of [facility] 23:26:50 2) [code = SHINGLES Hospital VACCINES (1 of 2)] Future Scheduled 2022-08-12 INFLUENZA VACCINE [code = [facility] 23:26:50 INFLUENZA VACCINE] Hospital Future Scheduled 2022-05-[address] [facility] Test 00:00:00 Counseling and Screening Med ical Center (12+) [code = Tobacco Cessation Counseling and Screening (12+)] Future Scheduled 2022-05-[address] [facility] Test 00:00:00 Counseling and Screening Med ical Center (12+) [code = Tobacco Cessation Counseling and Screening (12+)] Future Scheduled 2022-05-[address] [facility] Test 00:00:00 Counseling and Screening Med ical Center (12+) [code = Tobacco Cessation Counseling and Screening (12+)] Future Scheduled 2022-04-29 INFLUENZA VACCINE (#1) [facility] 00:00:00 [code = INFLUENZA VACCINE Me dical Center (#1)] Future Scheduled 2021-11-[address] [facility] Test 00:00:00 measurement (procedure) [facility] Center [code = 33590702] Future Scheduled 2021-11-[address] [facility] Test 00:00:00 measurement (procedure) [facility] Center [code = 05837070] Future Scheduled 2021-11-[address] [facility] Test 00:00:00 measurement (procedure) [facility] Center [code = 42549934] Future Scheduled 2021-11-[address] [facility] Test 00:00:00 measurement (procedure) [facility] [code = 18472203] Future Scheduled 2021-09-29 COVID-19 VACCINE (1) [facility] Test 13:09:20 [code = COVID-19 VACCINE Hos pital (1)] Future Scheduled 2021-09-29 COLONOSCOPY SCREENING [facility] 13:09:20 [code = COLONOSCOPY Hospital SCREENING] Future Scheduled 2021-09-29 SHINGLES VACCINES (#1) [facility] Test 13:09:20 [code = SHINGLES VACCINES Ho spital (#1)] Future Scheduled 2021-09-29 INFLUENZA VACCINE [code = [facility] 13:09:20 INFLUENZA VACCINE] Hospital Future Scheduled 2021-09-29 COVID-19 VACCINE (1) [facility] 13:09:20 [code = COVID-19 VACCINE Hos pital (1)] Future Scheduled 2021-09-29 COLONOSCOPY SCREENING [facility] 13:09:20 [code = COLONOSCOPY Hospital SCREENING] Future Scheduled 2021-09-29 SHINGLES VACCINES (#1) [facility] Test 13:09:20 [code = SHINGLES VACCINES Ho spital (#1)] Future Scheduled 2021-09-29 INFLUENZA VACCINE [code = [facility] 13:09:20 INFLUENZA VACCINE] Hospital Future Scheduled 2021-07-04 Lipid panel (procedure) [facility] 00:00:00 [code = 05752822] Medical Ce nter Future Scheduled 2021-07-04 Lipid panel (procedure) [facility] Test 00:00:00 [code = 86514467] Medical Ce nter Future Scheduled 2021-04-29 INFLUENZA VACCINE (#1) [facility] 00:00:00 [code = INFLUENZA VACCINE Me dical Center (#1)] Future Scheduled 2021-04-29 INFLUENZA VACCINE (Season [facility] 00:00:00 Ended) [code = INFLUENZA Med ical Center VACCINE (Season Ended)] Future Scheduled 2021-04-29 INFLUENZA VACCINE (Season [facility] 00:00:00 Ended) [code = INFLUENZA Med ical Center VACCINE (Season Ended)] Future Scheduled 2020-08-[address] [facility] Test 00:00:00 (12+) [code = DEPRESSION Med ical Center SCREENING (12+)] Future Scheduled 2020-08-[address] [facility] Test 00:00:00 (12+) [code = DEPRESSION Med ical Center SCREENING (12+)] Future Scheduled 2020-08-[address] [facility] Test 00:00:00 (12+) [code = DEPRESSION Med ical Center SCREENING (12+)] Future Scheduled 2019-01-[address] [facility] Test 00:00:00 measurement (procedure) [facility] Center [code = 38530734] Future Scheduled 2019-01-[address] [facility] Test 00:00:00 measurement (procedure) [facility] [code = 06283235] Future Scheduled 2015 SHINGLES VACCINES ([address] [facility] 00:00:00 2) [code = SHINGLES Medical Center VACCINES (1 of 2)] Future Scheduled 2015 SHINGLES VACCINES ([address] [facility] 00:00:00 2) [code = SHINGLES Medical Center VACCINES (1 of 2)] Future Scheduled 2015 SHINGLES VACCINES ([address] [facility] Test 00:00:00 2) [code = SHINGLES Medical Center VACCINES (1 of 2)] Future Scheduled 2015 SHINGLES VACCINES ([address] [facility] 00:00:00 2) [code = SHINGLES Medical Center VACCINES (1 of 2)] Future Scheduled 2015 SHINGLES VACCINES ([address] [facility] 00:00:00 2) [code = SHINGLES Medical Center VACCINES (1 of 2)] Future Scheduled 2015 SHINGLES VACCINES ([address] [facility] Test 00:00:00 2) [code = [facility] VACCINES (1 of 2)] Future Scheduled 1984-02-14 DTAP/TDAP/TD VACCINES ([address] [facility] 00:00:00 - Tdap) [code = Medical Cent er DTAP/TDAP/TD VACCINES (1 - Tdap)] Future Scheduled 1984-02-14 DTAP/TDAP/TD VACCINES ([address] [facility] 00:00:00 - Tdap) [code = Medical Cent er DTAP/TDAP/TD VACCINES (1 - Tdap)] Future Scheduled 1984-02-14 DTAP/TDAP/TD VACCINES ([address] [facility] 00:00:00 - Tdap) [code = Medical Cent er DTAP/TDAP/TD VACCINES (1 - Tdap)] Future Scheduled 1984-02-14 DTAP/TDAP/TD VACCINES ([address] [facility] 00:00:00 - Tdap) [code = Medical Cent er DTAP/TDAP/TD VACCINES (1 - Tdap)] Future Scheduled 1984-02-14 DTAP/TDAP/TD VACCINES ([address] [facility] 00:00:00 - Tdap) [code = Medical Cent er DTAP/TDAP/TD VACCINES (1 - Tdap)] Future Scheduled 1984-02-14 DTAP/TDAP/TD VACCINES ([address] [facility] 00:00:00 - Tdap) [code = Medical Cent er DTAP/TDAP/TD VACCINES (1 - Tdap)] Future Scheduled [...] HEPATITIS C Medical Center SCREENING] Future Scheduled 1980-02-[address] [facility] 00:00:00 virus screening Medical Cent er (procedure) [code = 834140859] Future Scheduled 1977 COVID-19 VACCINE (1) [facility] 00:00:00 [code = COVID-19 VACCINE [facility] Future Scheduled 1977 COVID-19 VACCINE (1) [facility] 00:00:00 [code = COVID-19 VACCINE [facility] (1)] Future Scheduled 1975 DIABETIC EYE EXAM [code = [facility] 00:00:00 DIABETIC EYE EXAM] Medical C enter Future Scheduled 1975 Diabetic foot examination [facility] 00:00:00 (regime/therapy) [code = [facility] 280323295] Future Scheduled 1975 Urine screening for [facility] 00:00:00 protein (procedure) [code [facility] = 479010107] Future Scheduled 1975 DIABETIC EYE EXAM [code = [facility] 00:00:00 DIABETIC EYE EXAM] Medical C enter Future Scheduled 1975 Diabetic foot examination [facility] 00:00:00 (regime/therapy) [code = [facility] 069292686] Future Scheduled 1975 Urine screening for [facility] 00:00:00 protein (procedure) [code [facility] Center = 705377740] Future Scheduled 1975 DIABETIC EYE EXAM [code = [facility] 00:00:00 DIABETIC EYE EXAM] Medical C enter Future Scheduled 1975 Diabetic foot examination [facility] 00:00:00 (regime/therapy) [code = [facility] 266430785] Future Scheduled 1975 Urine screening for [facility] 00:00:00 protein (procedure) [code [facility] = 253703048] Future Scheduled 1975 DIABETIC EYE EXAM [code = [facility] 00:00:00 DIABETIC EYE EXAM] Medical C enter Future Scheduled 1975 Diabetic foot examination [facility] 00:00:00 (regime/therapy) [code = [facility] 021119102] Future Scheduled 1975 Urine screening for [facility] 00:00:00 protein (procedure) [code [facility] = 129784482] Future Scheduled 1975 DIABETIC EYE EXAM [code = [facility] 00:00:00 DIABETIC EYE EXAM] Medical C enter Future Scheduled 1975 Diabetic foot examination [facility] 00:00:00 (regime/therapy) [code = [facility] 536398141] Future Scheduled 1975 Urine screening for [facility] 00:00:00 protein (procedure) [code [facility] = 891161573] Future Scheduled 1975 DIABETIC EYE EXAM [code = [facility] 00:00:00 DIABETIC EYE EXAM] Medical C enter Future Scheduled 1975 Diabetic foot examination [facility] 00:00:00 (regime/therapy) [code = [facility] 119501073] Future Scheduled 1975 Urine screening for [facility] 00:00:00 protein (procedure) [code [facility] Center = 611885901] Future Scheduled 1971 PNEUMOCOCCAL VACCINE 0-[address] [facility] Test 00:00:00 YRS (1 of 2 - PPSV23) Medica l Center [code = PNEUMOCOCCAL VACCINE 0-64 YRS (1 of 2 - PPSV23)] Future Scheduled 1971 PNEUMOCOCCAL VACCINE 0-[address] [facility] Test 00:00:00 YRS (1 - PCV) [code = Medica l Center PNEUMOCOCCAL VACCINE 0-64 YRS (1 - PCV)] Future Scheduled 1971 PNEUMOCOCCAL VACCINE 0-[address] [facility] Test 00:00:00 YRS (1 - PCV) [code = Medica l Center PNEUMOCOCCAL VACCINE 0-64 YRS (1 - PCV)] Future Scheduled 1971 PNEUMOCOCCAL VACCINE 0-[address] [facility] 00:00:00 YRS (1 of 1 - PPSV23) Medica l Center [code = PNEUMOCOCCAL VACCINE 0-64 YRS (1 of 1 - PPSV23)] Future Scheduled 1971 PNEUMOCOCCAL VACCINE 0-[address] [facility] Test 00:00:00 YRS (1 of 1 - PPSV23) Medica l Center [code = PNEUMOCOCCAL VACCINE 0-64 YRS (1 of 1 - PPSV23)] Future Scheduled 1971 Pneumococcal Vaccine: [facility] 00:00:00 0-64 Years (1 - PCV) Medical Center [code = Pneumococcal Vaccine: 0-64 Years (1 - PCV)] Future Scheduled 1970 COVID-19 VACCINE (1) [facility] 00:00:00 [code = COVID-19 VACCINE Med ical Center (1)] Future Scheduled 1965 COVID-19 VACCINE (#1[facility] 00:00:00 [code = COVID-19 VACCINE Med ical Center (#1)] Future Scheduled 1965 COVID-19 VACCINE (#1[facility] 00:00:00 [code = COVID-19 VACCINE Med ical Center (#1)] Future Scheduled 1965 COVID-19 VACCINE (#1[facility] 00:00:00 [code = COVID-19 VACCINE Med ical Center (#1)] Future Scheduled 1965 Screening for malignant [facility] Test 00:00:00 neoplasm of colon Medical Ce nter (procedure) [code = 601560268] Future Scheduled 1965 CT Colonography (combo) [facility] 00:00:00 [code = CT Colonography [facility] Center (combo)] Future Scheduled 1965 Screening for malignant [facility] Test 00:00:00 neoplasm of colon Medical Ce nter (procedure) [code = 702999866] Future Scheduled 1965 Screening for malignant [facility] Test 00:00:00 neoplasm of colon Medical Ce nter (procedure) [code = 149618000] Future Scheduled 1965 Screening for malignant [facility] Test 00:00:00 neoplasm of colon Medical Ce nter (procedure) [code = 277361020] Future Scheduled 1965 Screening for malignant [facility] Test 00:00:00 neoplasm of colon Medical Ce nter (procedure) [code = 462190531] Future Scheduled 1965 Sigmoidoscopy [code = [facility] 00:[facility] Sigmoidoscopy] [facility] Future Scheduled 1965 CT Colonography (combo) [facility] 00:00:00 [code = CT Colonography [facility] Center (combo)] Future Scheduled 1965 Screening for malignant [facility] Test 00:00:00 neoplasm of colon Medical Ce nter (procedure) [code = 403713200] Future Scheduled 1965 Screening for malignant [facility] 00:00:00 neoplasm of colon Medical Ce nter (procedure) [code = 822407215] Future Scheduled 1965 Screening for malignant [facility] 00:00:00 neoplasm of colon Medical Ce nter (procedure) [code = 475294261] Future Scheduled 1965 Screening for malignant [facility] 00:00:00 neoplasm of colon Medical Ce nter (procedure) [code = 069756337] Future Scheduled 1965 Sigmoidoscopy [facility]code [facility] Future Scheduled 1965 Screening for malignant [facility] 00:00:00 neoplasm of colon Medical Ce nter (procedure) [code = 364818597] Future Scheduled 1965 Screening for malignant [facility] 00:00:00 neoplasm of colon Medical Ce nter (procedure) [code = 771111671] Future Scheduled 1965 CT Colonography (combo) [facility] Test 00:00:00 [code = CT Colonography [facility] (combo)] Future Scheduled 1965 Screening for malignant [facility] Test 00:00:00 neoplasm of colon Medical Ce nter (procedure) [code = 697272451] Future Scheduled 1965 Screening for malignant [facility] Test 00:00:00 neoplasm of colon Medical Ce nter (procedure) [code = 419436483] Future Scheduled 1965 Screening for malignant [facility] 00:00:00 neoplasm of colon Medical Ce nter (procedure) [code = 142852221] Future Scheduled 1965 Screening for malignant [facility] 00:00:00 neoplasm of colon Medical Ce nter (procedure) [code = 354009977] Future Scheduled 1965 Sigmoidoscopy [code = [facility]] Medical Cente r Future Scheduled COVID-19 VACCINE (1) [facility] Test [code = COVID-19 VACCINE Hos pital (1)] Future Scheduled COLONOSCOPY SCREENING [facility] [code = COLONOSCOPY Hospital SCREENING] Future Scheduled SHINGLES VACCINES (#1) M ethodist Test [code = SHINGLES VACCINES Ho spital (#1)] Future Scheduled INFLUENZA VACCINE [code = Bahai Test INFLUENZA VACCINE] Hospital Future Scheduled COVID-19 VACCINE (1) [facility] Test [code = COVID-19 VACCINE Hos pital (1)] Future Scheduled COLONOSCOPY SCREENING [facility] [code = COLONOSCOPY Hospital SCREENING] Future Scheduled SHINGLES VACCINES (#1) M ethodist Test [code = SHINGLES VACCINES Ho spital (#1)] Future Scheduled INFLUENZA VACCINE [code = Bahai Test INFLUENZA VACCINE] Hospital Encounters Start End Encounter Admission Attending Care Care Encounter Source Date/Time Date/Time Type Type Clinicians Facility Department ID 2023-01-14 Outpatient ELCAMPO ELCAMPO [id number] [place] 08:50:57 [id number] [facility] 2022-05-19 Outpatient ELCAMPO ELCAMPO [id number] El 12:14:13 [id number] [facility] 2022-02-10 Outpatient ELCAMPO ELCAMPO [id number] El 10:20:05 [id number] [facility] 2021-12-31 Outpatient ELCAMPO ELCAMPO [id number] El 09:23:53 [id number] [facility] 2021-06-07 Inpatient [facility] [id number] [facility] 12:24:57 [facility] 2023-04-18 2023-04-18 Outpatient MALLORY WAYNE [facility] [id number] [place] 07:33:00 07:33:00 [id number] [facility] 2023-01-14 2023-01-14 Outpatient [facility] [id number] [place] 08:51:00 08:51:00 [id number] [facility] 2022-06-29 2022-06-29 Outpatient [id number] 07:21:00 07:21:00 [id number] [place] 2022-06-29 2022-06-29 Hypothyro 1.3.6.1.4 1.3.6.1.4.1 2 [id number] 07:21:00 07:21:00 idism, .1.99137 .06633 [id number] unspecifie [id number] d bb8cda 06/29/2022 SNOMED-CT 2022-06-29 2022-06-29 Outpatient N DEANA [facility] [id number] [place] 07:21:00 07:21:00 [id number] [facility] 2022-05-12 2022-05-12 Outpatient N [facility] [id number] [place] 07:42:00 07:44:00 [id number] [facility] 2022-03-25 2022-03-25 [facility] [id number] [place] 07:33:00 07:33:00 [id number] [facility] 2021-12-31 2021-12-31 Outpatient N DEANA [facility] [id number] [place] 09:26:00 09:26:00 [id number] [facility] 2021-05-12 2021-05-13 [facility] Soren Wilson [facility] [id number] [facility] 14:00:00 11:27:00 Encounter Lilliam [facility] 2018-07-18 2018-07-18 Outpatient GOPAL JUSTICE WHITKen [facility] [id number] [facility] 00:00:00 00:00:00 DONALDO Results Test Description Test Time Test Comments Results Result Comments Source LIPID PROFILE 2022-06-29 07:42:00 Test Item Value Reference Range Interpretation Comme nts CHOLESTEROL (test code = 2093-3) 145 mg/dL 0-200 TRIGLYCERIDES (test code = 2571-8) 116 mg/dL 30-150 HDL (test code = 2085-9) 54 mg/dL 40-60 LDL (test code = 97246-6) 68 mg/dL RISK FACTOR (test code = RISK FACTOR) 2.7 LDL/HDL (test code = LDL/HDL) 1 COMP META [id number] 07:42:00 Test Item Value Reference Range Interpretation Comments SODIUM (test code = 2951-2) 146 mmol/L 136-145 H POTASSIUM (test code = POTASSIUM) 4.7 mmol/L 3.5-5.1 CHLORIDE (test code = 5-0) 107 mmol/L 98-107 CO2 (test code = [...] RATIO) 1.4 1-2.6 CALCIUM (test code = 02286-4) 9.8 mg/dL 8.5-10.1 TOTAL BILI (test code [...] code = NON-AA 69 mL/min GFR) GLYCO [id number] 07:42:00 Test Item Value Reference Range Interpretation Comments GLYCO HGB (test code = 3432-2) 6.9 % 4.2-6.5 H [id number] 07:42:00 Test Item Value Reference Range Interpretation Comments T4 FREE (test code = 3024-7) 1.03 ng/dL 0.76-1.46 T3 [id number] 07:42:00 FREE T3 2.8 [id number] 07:42:00 Test Item Value Reference Range Interpretation Comments TSH (test code = 31692-2) 2.41 uIU/mL 0.35-3.74 [id number] 08:23:15 Test Item Value Reference Range Interpretation Comments Ferritin (test code = 2096.56 ng/mL 5.00-275.00 H 2276-4) MURIEL (test code = MURIEL) Data Security Analyst ID - MAX Ashiaerator ID - MAX M Lab Interpretation (test Abnormal code = 50825-9) [facility] 08:23[facility]15 Test Item Value Reference Range Interpretation Comments FERRITIN (BEAKER) (test code = 2096.56 ng/mL 5.00-275.00 H 361) Data Security Analyst ID - MAX Angerator ID - MAX MPOC-Glucose [id number] 07:55:15 Test Item Value Reference Range Interpretation Comments POC-Glucose Meter (test 283 mg/dL 70-110 H : TE STED AT [facility] code = 1538) [address] [facility], [address]: Data Security Analyst/Techni israel ID = [id number] for Payal (contract )Reina Lab Interpretation (test Abnormal code = 40570-6) [facility] [id number] 07:55:15 Test Item Value Reference Range Interpretation Comments POC-GLUCOSE METER 283 mg/dL 70-110 H : TESTED [facility] T [facility] 6720 (BEAKER) (test code = SURAJ R [facility], 1538) [address]: Data Security Analyst/Techni israel ID = [id number] for Nishant holland (contract)Shireen Hemoglobin [id number] 07:46:02 Test Item Value Reference Range Interpretation Comments Hemoglobin A1C (test code = 4548-4) 8.5 % 4.3-6.1 H Lab Interpretation (test code = Abnormal 84217-6) [facility] [id number] 07:46:02 Test Item Value Reference Range Interpretation Comments HEMOGLOBIN A1C (BEAKER) (test code = 8.5 % 4.3-6.1 H 368) Lipid [id number] 05:25:49 Test Item Value Reference Range Interpretation Comments Triglycerides (test 220 mg/dL code = 2571-8) Cholesterol (test code 182 mg/dL = 2093-3) HDL (test code = 41 mg/dL 5-9) LDL Calculated (test 97 mg/dL code = 48137-2) MURIEL (test code = MURIEL) Triglyceride Reference Range: Low Risk <150 Borderline 150-199 High Risk 200-499 Very High Risk >=500 Cholesterol Reference Range: Low Risk <200 Borderline 200-239 High Risk >240 HDL Cholesterol Reference Range: Low Risk >=60 High Risk <40 LDL Cholesterol Reference Range: Optimal <100 Near Optimal 100-129 Borderline 130-159 High 160-189 Very High >=190 Data Security Analyst PAOLO Pimentel [facility] function [id number] 05:25:49 Test Item Value Reference Range Interpretation Comments Protein, Total (test 7.1 See_Comment [Autom ated code = 2885-2) message] The system which generated this result transmit carmen reference range : 6.0 - 8.3 gm/dL . The reference range was not u sed to interpret th is result as normal/abnormal . Albumin (test code = 3.4 g/dL 3.5-5.0 L 16421-7) Total Bilirubin (test 0.6 mg/dL 0.2-1.2 code = 1975-2) Bilirubin, Direct 0.3 mg/dL 0.1-0.5 (test code = 1968-7) Alkaline Phosphatase 132 U/L 40-150 (test code = 6768-6) AST (test code = 35 U/L 5-34 H 1920-8) ALT (test code = 53 U/L 6-55 1742-6) MURIEL (test code = MURIEL) Data Security Analyst PAOLO Pimentel Lab Interpretation Abnormal (test code = 49190-3) [facility]active [id number] 05:25:49 Test Item Value Reference Range Interpretation Comments CRP (test code = 676) 12.50 mg/dL 0.00-0.50 H MURIEL (test code = MURIEL) Data Security Analyst ID - MAX M Lab Interpretation (test Abnormal code = 94680-1) [facility] [id number] 05:25:49 Test Item Value Reference Range Interpretation [...] Borderline 130-159 High 160-189 Very High >=190 Data Security Analyst ID - MAX EPATIC FUNCTION [id number] 05:25:49 Test Item Value Reference Range Interpretation [...] (test code = 53 U/L 6-55 347) Data Security Analyst ID - MAX MC-REACTIVE [id number] 05:25:49 Test Item Value Reference Range Interpretation Comments C-REACTIVE PROTEIN (BEAKER) (test 12.50 mg/dL 0.00-0.50 H code = 676) Data Security Analyst ID - MAX MBasic metabolic [id number] 05:25:48 Test Item Value Reference Range Interpretation Comments Sodium (test code = 138 meq/L 256-816 6533-2) Potassium (test code = 4.3 meq/L 3.5-5.1 2823-3) Chloride (test code = 104 meq/L 98-107 2075-0) CO2 (test code = 22 meq/L 22-29 2028-9) BUN (test code = 20 mg/dL 7-21 3094-0) Creatinine (test code 0.88 mg/dL 0.57-1.25 = 2160-0) Glucose (test code = 314 mg/dL 70-105 H 2345-7) Calcium (test code = 9.5 mg/dL 8.4-10.2 91929-8) EGFR (test code = 90 mL/min/1.73 [place] [address]-5) NOT ACCURATE CREATININE CLEARANCE IN PREDICTING GLOMERULAR FILTRATION RATE . ESTIMATED GFR I S NOT APPLICABLE FOR DIALYSIS PATIENTS. MURIEL (test code = MURIEL) Data Security Analyst ID - MAX M Lab Interpretation Abnormal (test code = 64346-6) [facility] METABOLIC [id number] 05:25:48 Test Item Value Reference Range Interpretation [...] S NOT APPLICABLE FOR DIALYSIS PATIEN TS. Data Security Analyst ID - MAX MCBC with platelet count + automated [id number] 05:03:38 Test Item Value Reference Range Interpretation Comments WBC (test code = 6690-2) 7.4 See_Comment [A utomated message] The system [employer] generated this result transmitted ref erence range: 3.5 - 10 .5 K/L. The refe rence range was not u sed to interpret this result as normal/abnor mal. RBC (test code = 789-8) 4.62 See_Comment L [Au tomated message] The system [employer] generated this result transmitted ref erence range: 4.63 - 6 .08 M/L. The refe rence range was not u sed to interpret this result as normal/abnor mal. MCHC (test code = 786-4) 33.5 See_Comment [A utomated message] The system [employer] generated this result transmitted ref erence range: [...] See_Comment [Aut omated message] 777-3) The system [employer] generated this result transmitted ref erence range: 150 - 45 0 K/CU MM. The referen ce range was not u sed to interpret this result as normal/abnor mal. MPV (test code = 10.4 fL 9.4-12.4 19065-9) nRBC (test code = 413) 0 See_Comment [Aut omated message] The system [employer] generated this result transmitted ref erence range: [...] H [Aut omated message] 670) The system [employer] generated this result transmitted ref erence range: 1.78 - 5 .38 K/L. The refe rence range was not u sed to interpret this result as normal/abnor mal. # Lymphs (test code = 0.89 See_Comment L [Auto mated message] 414) The system [employer] generated this result transmitted ref erence range: 1.32 - 3 .57 K/L. The refe rence range was not u sed to interpret this result as normal/abnor mal. # Monos (test code = 0.47 See_Comment [Autom ated message] 415) The system [employer] generated this result transmitted ref erence range: 0.30 - 0 .82 K/L. The refe rence range was not u sed to interpret this result as normal/abnor mal. # Eos (test code = 416) 0.00 See_Comment L [Au tomated message] The system [employer] generated this result transmitted ref erence range: 0.04 - 0 .54 K/L. The refe rence range was not u sed to interpret this result as normal/abnor mal. # Baso (test code = 417) 0.02 See_Comment [A utomated message] The system [employer] generated this result transmitted ref erence range: 0.01 - 0 .08 K/L. The refe rence range was not u sed to interpret this result as normal/abnor mal. Immature 1 % 0-1 Granulocytes-Relative (test code = 2801) Lab Interpretation (test Abnormal code = 36584-0) [facility] W/PLT COUNT & AUTO [id number] 05:03:38 Test Item Value Reference Range Interpretation [...] 0-1 PERCENT (BEAKER) (test code = 2801) [id number] 04:55:15 Test Item Value Reference Range Interpretation Comments D-Dimer, Quant (test 0.41 See_Comment [Autom ated code = 45374-3) message] The system which generated this result [...] range. Lab Interpretation Normal (test code = 72651-9) [facility][id number] 04:55:15 Test Item Value Reference Range Interpretation [...] of thrombosis is within 95-100% range. Prothrombin time/[id number] 04:52:50 Test Item Value Reference Interpretation Comments Range Protime (test code = 13.3 See_Comment [Autom ated 5902-2) message] The system which generated this result transmitted reference range : 11.9 - 14.2 seconds. The reference range was not used to interpret this result as normal/abnormal . INR (test code = 1.03 See_Comment [Automated 6301-6) message] The system which generated this result [...] valves. Lab Interpretation Normal (test code = 03614-7) [facility]/[id number] 04:52:50 Test Item Value Reference Range Interpretation Comments PROTIME (BEAKER) 13.3 seconds 11.9-14.2 (test code = 759) INR (BEAKER) (test 1.03 See_Comment [Automat ed message] code = 370) The system [employer] generated this result transmitted ref erence range: <=5.90. The reference range was not used to int erpret this result as normal/abnormal . RECOMMENDED COUMADIN/WARFARIN INR THERAPY RANGESSTANDARD DOSE: 2.0 - 3.0 Includes: PROPHYLAXIS for venous thrombosis, systemic embolization; TREATMENT for venous thrombosis and/or pulmonary embolus.HIGH RISK: Target INR is 2.5-3.5 for patients with mechanical heart valves.POCT-GLUCOSE [id number] 19:55:32 Test Item Value Reference Range Interpretation Comments POC-GLUCOSE METER 391 mg/dL 70-110 H : Notified RN/: (TAMIR) (test code = TESTED AT [facility] 6720 1538) [facility], [address]: Data Security Analyst/Techni israel ID = [id number] for JUAN CARLOS SIU POCT-GLUCOSE [id number] 16:53:52 Test Item Value Reference Range Interpretation Comments POC-GLUCOSE METER 301 mg/dL 70-110 H : TESTED [facility] T [facility] 67 (BEAKER) (test code = BANNERXAVIER Colon [facility], 1538) [address]: Data Security Analyst/Techni israel ID = [id number] for Jessica nassarphilip Halimatony URINALYSIS W/ REFLEX URINE [id number] 16:24:00 Test Item Value Reference Range Interpretation [...] /LPF SOURCE(BEAKER) (test code = 2795) POCT-GLUCOSE [id number] 12:36:00 Test Item Value Reference Range Interpretation Comments POC-GLUCOSE METER 151 mg/dL 70-[address] [facility] 67[address] (BEAKER) (test code = SURAJ Colon [facility] 1538) [address] POCT-GLUCOSE [id number] 08:14:00 Test Item Value Reference Range Interpretation Comments POC-GLUCOSE METER 159 mg/dL 70-[address] [facility] 67[address] (BEAKER) (test code = [facility] Darlene [facility] 1538) [address] RAD, CHEST, 1 VIEW, NON [id number] 08:10:00Reason for exam:->eval pulmonary congestionShould this be [...] millard rgical changes.Additional findings: None. Signed: JR Alamo Robert MDReport Verified Date/Time: 07/11/2018 08:10:57 Reading Location: [address] Neuro Reading Room [id number] 05:02:00 Test Item Value Reference Range Interpretation Comments MAGNESIUM (BEAKER) (test code = 2.1 mg/dL 1.6-2.6 627) BASIC METABOLIC [id number] 05:02:00 Test Item Value Reference Range Interpretation [...] (BEAKER) (test code = 412) PLATELET COUNT ([facility]) (test 179 K/CU MM 150-450 code = 756) MEAN PLATELET VOLUME ([facility]) 10.0 fL 9.4-12.4 (test code = 754) NUCLEATED RED BLOOD CELLS 0 /100 WBC 0-0 ([facility]) (test code = 413) POCT-GLUCOSE [id number] 21:35:00 Test Item Value Reference Range Interpretation Comments POC-GLUCOSE METER 172 mg/dL 70-110 H TESTED AT [place] [address] ([facility]) (test code = SURAJ Colon [facility] 1538) [address] POCT-GLUCOSE [id number] 17:50:00 Test Item Value Reference Range Interpretation Comments POC-GLUCOSE METER 142 mg/dL 70-110 H TESTED AT [place] [address] ([facility]) (test code = SURAJ Colon [facility] 1538) [address] B-TYPE NATRIURETIC FACTOR (BNP)2018-07-10 14:23:00 Test Item Value Reference Range Interpretation Comments B-TYPE NATRIURETIC PEPTIDE ([facility]) 263 pg/mL 0-100 H (test code = 700) POCT-GLUCOSE [id number] 12:30:00 Test Item Value Reference Range Interpretation Comments POC-GLUCOSE METER 162 mg/dL 70-110 H TESTED AT [place] [address] ([facility]) (test code = SURAJ Colon [place] 1538) [address] POCT-GLUCOSE [id number] 08:28:00 Test Item Value Reference Range Interpretation Comments POC-GLUCOSE METER 248 mg/dL 70-110 H TESTED AT [place] [address] ([facility]) (test code = SURAJ Colon [facility] 1538) [address] RAD, CHEST, 1 VIEW, NON [id number] 07:32:00Reason for exam:->eval pulmonary congestionShould this be [...] Signed: JR Cally, Shayna Hernandez Verified Date/Time: 07/10/2018 07:32:04 Reading Location: [facility] C013V Neuro Reading Room [id number] 06:04:00 Test Item Value Reference Range Interpretation Comments MAGNESIUM (BEAKER) (test code = 2.3 mg/dL 1.6-2.6 627) BASIC METABOLIC [id number] 06:04:00 Test Item Value Reference Range Interpretation [...] (AKER) (test code = 412) PLATELET COUNT (BEAKER) (test 173 K/CU MM 150-450 code = 756) MEAN PLATELET VOLUME (AKER) 10.7 fL 9.4-12.4 (test code = 754) NUCLEATED RED BLOOD CELLS 0 /100 WBC 0-0 (AKER) (test code = 413) POCT-GLUCOSE [id number] 21:23:00 Test Item Value Reference Range Interpretation Comments POC-GLUCOSE METER 166 mg/dL 70-[address] [facility] 67[address] ([facility]) (test code = SURAJ Colon [place] 1538) [address] [id number] 12:50:00 Test Item Value Reference Range Interpretation Comments POTASSIUM (BEAKER) (test code = 4.0 meq/L 3.5-5.1 379) Check Serum Magnesium level 2 hours after IV magnesium replacement.Check Serum Phosphorus level 4 hours after IV phosphorus replacement or 8 hours after PO replacement completed.Every 8 hours PRN for Creatinine greater than or equal to 2 mg/dL.[id number] 12:50:00 Test Item Value Reference Range Interpretation Comments MAGNESIUM (BEAKER) (test code = 2.3 mg/dL 1.6-2.6 627) Check Serum Magnesium level 2 hours after IV magnesium replacement.Check Serum Phosphorus level 4 hours after IV phosphorus replacement or 8 hours after PO replacement completed.Every 8 hours PRN for Creatinine greater than or equal to 2 mg/dL.[id number] 12:50:00 Test Item Value Reference Range Interpretation Comments PHOSPHORUS (BEAKER) (test code = 1.6 mg/dL 2.3-4.7 L 604) Check Serum Magnesium level 2 hours after IV magnesium replacement.Check Serum Phosphorus level 4 hours after IV phosphorus replacement or 8 hours after PO replacement completed.Every 8 hours PRN for Creatinine greater than or equal to 2 mg/dL.POCT-GLUCOSE [id number] 12:19:00 Test Item Value Reference Range Interpretation Comments POC-GLUCOSE METER 255 mg/dL 70-[address] [facility] [address] ([facility]) (test code = SURAJ Colon [facility] 1538) [address] RAD, CHEST, 1 VIEW, NON [id number] 09:46:00while patient is intubated or has chest [...] MDReport Verified Date/Time: 07/09/2018 09:46:04 Reading Location: [address] Transitional Reading Room POCT-GLUCOSE [id number] 08:01:00 Test Item Value Reference Range Interpretation Comments POC-GLUCOSE METER 173 mg/dL 70-[address] [facility] 67[address] ([facility]) (test code = SURAJ Colon [facility] 1538) [address] [id number] 04:58:00 Test Item Value Reference Range Interpretation Comments PHOSPHORUS (BEAKER) (test code = 2.3 mg/dL 2.3-4.7 604) Check Serum Phosphorus level 4 hours after IV phosphorus replacement or 8 hours after PO replacementcompleted.[id number] 04:58:00 Test Item Value Reference Range Interpretation Comments MAGNESIUM (BEAKER) (test code = 2.3 mg/dL 1.6-2.6 627) Check Serum Phosphorus level 4 hours after IV phosphorus replacement or 8 hours after PO replacementcompleted.BASIC METABOLIC [id number] 04:58:00 Test Item Value Reference Range Interpretation [...] WBC 0-0 (BEAKER) (test code = 413) [id number] 00:40:00 Test Item Value Reference Range Interpretation Comments POTASSIUM (BEAKER) (test code = 3.5 meq/L 3.5-5.1 379) Every 8 hours PRN for Creatinine greater than or equal to 2 mg/dL.POCT-GLUCOSE [id number] 20:50:00 Test Item Value Reference Range Interpretation Comments POC-GLUCOSE METER 171 mg/dL 70-[address] [facility] 67[address] (BEAKER) (test code = SURAJ [place] 1538) [address] [id number] 18:19:00 Test Item Value Reference Range Interpretation Comments POTASSIUM (BEAKER) (test code = 3.7 meq/L 3.5-5.1 379) Check Serum Magnesium level 2 hours after IV magnesium replacement.Check Serum Phosphorus level 4 hours after IV phosphorus replacement or 8 hours after PO replacement completed.8 hours after PO replacement [id number] 18:19:00 Test Item Value Reference Range Interpretation Comments MAGNESIUM (BEAKER) (test code = 2.1 mg/dL 1.6-2.6 627) Check Serum Magnesium level 2 hours after IV magnesium replacement.Check Serum Phosphorus level 4 hours after IV phosphorus replacement or 8 hours after PO replacement completed.8 hours after PO replacement [id number] 18:19:00 Test Item Value Reference Range Interpretation [...] 4 hours after IV Calcium replacement. POCT-GLUCOSE [id number] 17:17:00 Test Item Value Reference Range Interpretation Comments POC-GLUCOSE METER 195 mg/dL 70-[address] [facility] 67[address] (BEAKER) (test code = SURAJ [place] 1538) [address] POCT-GLUCOSE [id number] 12:17:00 Test Item Value Reference Range Interpretation Comments POC-GLUCOSE METER 231 mg/dL 70-[address] [facility] 67[address] (BEAKER) (test code = SURAJ [place] 1538) [address] RAD, CHEST, 1 VIEW, NON [id number] 09:19:00Reason for exam:- >hypoxiaShould this be performed [...] MDReport Verified Date/Time: 07/08/2018 09:19:57 Reading Location: [address] Transitional Reading Room [id number] 08:56:00 Test Item Value Reference Range Interpretation Comments PHOSPHORUS (BEAKER) (test code = 1.7 mg/dL 2.3-4.7 L 604) [id number] 08:56:00 Test Item Value Reference Range Interpretation Comments MAGNESIUM (BEAKER) (test code = 2.1 mg/dL 1.6-2.6 627) BASIC METABOLIC [id number] 08:56:00 Test Item Value Reference Range Interpretation [...] APPLICABLE FOR DIALYSIS PATIEN TS. BLOOD GAS, [id number] 08:49:00 Test Item Value Reference Range Interpretation [...] 60.0 % CBC W/PLT COUNT & AUTO [id number] 06:39:00 Test Item Value Reference Range Interpretation [...] PERCENT (BEAKER) (test code = 2801) POCT-GLUCOSE [id number] 05:59:00 Test Item Value Reference Range Interpretation Comments POC-GLUCOSE METER 175 mg/dL 70-[address] [facility] [address] (BEAKER) (test code = SURAJ [place] 1538) [address] BLOOD GAS, [id number] 21:35:00 Test Item Value Reference Range Interpretation [...] (test code = 1819) 60.0 % POCT-GLUCOSE [id number] 21:31:00 Test Item Value Reference Range Interpretation Comments POC-GLUCOSE METER 194 mg/dL 70-[address] [facility] [address] (BEAKER) (test code = SURAJ Colon [place] 1538) [address] OXYGEN SATURATION, [id number] 19:33:00 Test Item Value Reference Range Interpretation Comments O2 SATURATION (MEASURED) (BEAKER) 68.6 % (test code = 1455) For occult hypoperfusionLACTIC ACID, VENOUS, WHOLE [id number] 16:49:00 Test Item Value Reference Range Interpretation Comments LACTATE BLOOD VENOUS (2) (BEAKER) 1.0 mmol/L 0.5-2.2 (test code = 2872) BLOOD GAS, [id number] 16:43:00 Test Item Value Reference Range Interpretation [...] 60.0 % CBC W/PLT COUNT & AUTO [id number] 16:37:00 Test Item Value Reference Range Interpretation [...] 3438) Received comment: User comments: Slide comments:POCT-GLUCOSE [id number] 16:30:00 Test Item Value Reference Range Interpretation Comments POC-GLUCOSE METER 239 mg/dL 70-[address] [facility] [address] (BEAKER) (test code = SURAJ [place] 1538) [address] BLOOD GAS, [id number] 13:33:00 Test Item Value Reference Range Interpretation [...] (BEAKER) (test code = 1819) 32.0 % [id number] 13:09:00 Test Item Value Reference Range Interpretation Comments MAGNESIUM (BEAKER) 2.2 mg/dL 1.6-2.6 Specimen slightly (test code = 627) hemolyzed BASIC METABOLIC [id number] 13:09:00 Test Item Value Reference Range Interpretation [...] NOT APPLICABLE FOR DIALYSIS PATIEN TS. CALCIUM, [id number] 12:44:00 Test Item Value Reference Range Interpretation Comments CALCIUM IONIZED (BEAKER) (test 1.14 mmol/L 1.12-1.27 code = 698) PH, BLOOD (BEAKER) (test code = 7.34 1810) [id number] 11:12:00 Test Item Value Reference Range Interpretation Comments MAGNESIUM (BEAKER) (test code = 2.1 mg/dL 1.6-2.6 627) Check Serum Magnesium level 2 hours after IV magnesium replacement.GLUCOSE-STAT [id number] 11:00:00 Test Item Value Reference Range Interpretation Comments GLUCOSE RANDOM (BEAKER) (test code 194 mg/dL 70-110 H = 652) HGB/HCT (H&H) - STAT [id number] 11:00:00 Test Item Value Reference Range Interpretation Comments HEMOGLOBIN (BEAKER) (test code = 12.5 g/dL 13.0-16.8 L 410) HEMATOCRIT (BEAKER) (test code = 37.0 % 40.0-50.0 L 411) SODIUM NA-STAT [id number] 10:58:00 Test Item Value Reference Range Interpretation Comments SODIUM (BEAKER) (test code = 381) 138 meq/L 135-148 POTASSIUM-STAT [id number] 10:58:00 Test Item Value Reference Range Interpretation Comments POTASSIUM (BEAKER) (test code = 4.2 meq/L 3.6-5.5 379) CBC W/PLT COUNT & AUTO [id number] 09:53:00 Test Item Value Reference Range Interpretation [...] 0-1 PERCENT (BEAKER) (test code = 2801) [id number] 05:10:00 Test Item Value Reference Range Interpretation Comments MAGNESIUM (BEAKER) 2.3 mg/dL 1.6-2.6 Specimen slightly (test code = 627) hemolyzed [id number] 05:10:00 Test Item Value Reference Range Interpretation Comments PHOSPHORUS (BEAKER) 3.9 mg/dL 2.3-4.7 Specimen slightly (test code = 604) hemolyzed BASIC METABOLIC [id number] 05:10:00 Test Item Value Reference Range Interpretation [...] PATIEN TS. RAD, CHEST, 1 VIEW, NON [id number] 04:15:00while patient is intubated or has chest [...] Arechigaort Verified Date/Time: 07/07/2018 04:15:31 Reading Location: [address] Reading Room POCT-GLUCOSE [id number] 22:22:00 Test Item Value Reference Range Interpretation Comments POC-GLUCOSE METER 208 mg/dL 70-[address] [facility] [address] (BEAKER) (test code = SURAJ [place] 1538) [address] BLOOD GAS, [id number] 20:12:00 Test Item Value Reference Range Interpretation [...] 40.0 % CBC W/PLT COUNT & AUTO [id number] 19:32:00 Test Item Value Reference Range Interpretation [...] (BEAKER) (test code Normal = 486) POCT-GLUCOSE [id number] 18:56:00 Test Item Value Reference Range Interpretation Comments POC-GLUCOSE METER 206 mg/dL 70-[address] [facility] [address] (BEAKER) (test code = SURAJ [place] 1538) [address] BASIC METABOLIC [id number] 17:20:00 Test Item Value Reference Range Interpretation [...] DIALYSIS PATIEN TS. LACTIC ACID, ARTERIAL, WHOLE [id number] 16:50:00 Test Item Value Reference Range Interpretation Comments LACTATE BLOOD ARTERIAL (2) 1.2 mmol/L 0.5-2.2 (BEAKER) (test code = 2874) [id number] 16:45:00 Test Item Value Reference Range Interpretation Comments MAGNESIUM (BEAKER) 2.7 mg/dL 1.6-2.6 H Specimen slightly (test code = 627) hemolyzed [id number] 16:45:00 Test Item Value Reference Range Interpretation Comments PHOSPHORUS (BEAKER) 3.6 mg/dL 2.3-4.7 Specimen slightly (test code = 604) hemolyzed [id number] 16:45:00 Test Item Value Reference Range Interpretation Comments POTASSIUM (BEAKER) 5.1 meq/L 3.5-5.1 Specimen slightly (test code = 379) hemolyzed [id number] 16:45:00 Test Item Value Reference Range Interpretation Comments SODIUM (BEAKER) (test code = 381) 137 meq/L 136-145 [id number] 16:45:00 Test Item Value Reference Range Interpretation Comments GLUCOSE RANDOM (BEAKER) (test code 193 mg/dL 70-105 H = 652) [id number] 16:39:00 Test Item Value Reference Range Interpretation [...] is 2.5-3.5 for patients with mechanical heart valves.[id number] 16:39:00 Test Item Value Reference Range Interpretation Comments FIBRINOGEN LEVEL (BEAKER) (test 282 mg/dl 225-434 code = 658) PROTHROMBIN [id number] 16:38:00 Test Item Value Reference Range Interpretation [...] mechanical heart valves.RAD, CHEST, 1 VIEW, NON [id number] 16:16:00Reason for exam:->s/p CABGShould this be performed [...] Lopezeport Verified Date/Time: 07/06/2018 16:16:23 Reading Location: [facility] Radiology Reading Room EN SATURATION, [id number] 16:00:00 Test Item Value Reference Range Interpretation Comments O2 SATURATION (MEASURED) (BEAKER) 64.6 % (test code = 1455) BLOOD GAS, [id number] 15:59:00 Test Item Value Reference Range Interpretation [...] (BEAKER) (test code = 1819) 50.0 % [id number] 15:14:00 Test Item Value Reference Range Interpretation Comments ACTIVATED CLOTTING TIME 103 sec TEST ED AT [place] [address] ([facility]) (test code = SURAJ Colon [facility] 441) [address] [id number] 15:14:00 Test Item Value Reference Range Interpretation Comments ACTIVATED CLOTTING TIME 423 sec TEST ED AT [place] [address] ([facility]) (test code = SURAJ Colon [place] 441) [address] [id number] 15:14:00 Test Item Value Reference Range Interpretation Comments ACTIVATED CLOTTING TIME 384 sec TEST ED AT [facility] [address] (BEAKER) (test code = SUR[place] 441) [address] THROMBOELASTOGRAPH (TEG)2018-07-06 15:08:00 Test Item Value Reference [...] 0.0 % 0.0-5.0 code = 1414) PLATELET [id number] 14:31:00 Test Item Value Reference Range Interpretation Comments PLATELET COUNT (BEAKER) (test 125 K/CU MM 150-450 L code = 756) [id number] 14:18:00 Test Item Value Reference Range Interpretation Comments FIBRINOGEN LEVEL (BEAKER) (test 406 mg/dl 225-434 code = 658) [id number] 14:18:00 Test Item Value Reference Range Interpretation Comments PARTIAL THROMBOPLASTIN TIME 24.4 seconds 22.5-36.0 (BEAKER) (test code = 760) PROTHROMBIN [id number] 14:17:00 Test Item Value Reference Range Interpretation Comments PROTIME (BEAKER) (test code = 14.1 seconds 11.7-14.7 759) INR (BEAKER) (test code = 370) 1.1 <=5.9 RECOMMENDED COUMADIN/WARFARIN INR THERAPY RANGESSTANDARD DOSE: 2.0 - 3.0 Includes: PROPHYLAXIS for venous thrombosis, systemic embolization; TREATMENT for venous thrombosis and/or pulmonary embolus.HIGH RISK: Target INR is 2.5-3.5 for patients with mechanical heart valves.GLUCOSE-STAT [id number] 14:03:00 Test Item Value Reference Range Interpretation Comments GLUCOSE RANDOM (BEAKER) (test code 165 mg/dL 70-110 H = 652) SODIUM NA-STAT [id number] 14:03:00 Test Item Value Reference Range Interpretation Comments SODIUM (BEAKER) (test code = 381) 133 meq/L 135-148 L HGB/HCT (H&H) - STAT [id number] 14:03:00 Test Item Value Reference Range Interpretation Comments HEMOGLOBIN (BEAKER) (test code = 12.5 g/dL 13.0-16.8 L 410) HEMATOCRIT (BEAKER) (test code = 37.0 % 40.0-50.0 L 411) POTASSIUM-STAT [id number] 14:02:00 Test Item Value Reference Range Interpretation Comments POTASSIUM (BEAKER) (test code = 4.4 meq/L 3.6-5.5 379) BLOOD GAS, [id number] 14:02:00 Test Item Value Reference Range Interpretation [...] code = 1819) 100.0 % BLOOD GAS, [id number] 13:22:00 Test Item Value Reference Range Interpretation Comments PH VENOUS (BEAKER) 7.34 7.32-7.42 This is a corrected (test code = 701) result. Pr evious result was 7.36 on 07/06/2018 at 13 13 [employer] PCO2 VENOUS (BEAKER) 46 mmHg 41-51 This is a corrected (test code = 755) result. Pr evious result was 44 m mHg on 07/06/2018 at 1313 [employer] REPRES[employer]IVE PO2 VENOUS (BEAKER) 46 mmHg 25-40 H This is a corrected (test code = 702) result. Pr evious result was 282 mmHg on 07/06/2018 at 1313 [employer] REPRES[employer]IVE O2 SATURATION VENOUS 93.4 % 40.0-70.0 H This is a corrected (BEAKER) (test code = result . Previous 703) result was 99.6 % on 07/06/2018 at 13 13 [employer] REPRES[employer]IVE HCO3 VENOUS (BEAKER) 27 mmol/L 21-29 (test code = 705) BASE EXCESS VENOUS -1.8 mmol/L -2.0-3.0 (BEAKER) (test code = 704) PATIENT TEMPERATURE 28.2 C (BEAKER) (test code = 1818) FIO2 (BEAKER) (test 65.0 % code = 1819) BLOOD GAS, [id number] 13:15:00 Test Item Value Reference Range Interpretation [...] code = 1819) 65.0 % SODIUM NA-STAT [id number] 13:15:00 Test Item Value Reference Range Interpretation Comments SODIUM (BEAKER) (test code = 381) 132 meq/L 135-148 L GLUCOSE-STAT [id number] 13:15:00 Test Item Value Reference Range Interpretation Comments GLUCOSE RANDOM (BEAKER) (test code 183 mg/dL 70-110 H = 652) HGB/HCT (H&H) - STAT [id number] 13:15:00 Test Item Value Reference Range Interpretation Comments HEMOGLOBIN (BEAKER) (test code = 11.4 g/dL 13.0-16.8 L 410) HEMATOCRIT (BEAKER) (test code = 34.0 % 40.0-50.0 L 411) POTASSIUM-STAT [id number] 13:14:00 Test Item Value Reference Range Interpretation Comments POTASSIUM (BEAKER) (test code = 3.9 meq/L 3.6-5.5 379) SODIUM NA-STAT [id number] 13:07:00 Test Item Value Reference Range Interpretation Comments SODIUM (BEAKER) (test code = 381) 138 meq/L 135-148 POTASSIUM-STAT [id number] 13:07:00 Test Item Value Reference Range Interpretation Comments POTASSIUM (BEAKER) (test code = 4.1 meq/L 3.6-5.5 379) HGB/HCT (H&H) - STAT [id number] 13:07:00 Test Item Value Reference Range Interpretation Comments HEMOGLOBIN (BEAKER) (test code = 14.7 g/dL 13.0-16.8 410) HEMATOCRIT (BEAKER) (test code = 43.0 % 40.0-50.0 411) BLOOD GAS, [id number] 13:07:00 Test Item Value Reference Range Interpretation [...] (test code = 1819) 100.0 % GLUCOSE-STAT [id number] 13:07:00 Test Item Value Reference Range Interpretation Comments GLUCOSE RANDOM (BEAKER) (test code 157 mg/dL 70-110 H = 652) CALCIUM, [id number] 13:06:00 Test Item Value Reference Range Interpretation Comments CALCIUM IONIZED (BEAKER) (test 1.13 mmol/L 1.12-1.27 code = 698) PH, BLOOD (BEAKER) (test code = 7.23 1810) [id number] 12:49:00 Test Item Value Reference Range Interpretation Comments ACTIVATED CLOTTING TIME 472 sec TEST ED AT [place] [address] ([facility]) (test code = SURAJ Colon [place] 441) [address] POCT-GLUCOSE [id number] 08:01:00 Test Item Value Reference Range Interpretation Comments POC-GLUCOSE METER 201 mg/dL 70-110 H TESTED AT [place] [address] ([facility]) (test code = SURAJ Colon [place] 1538) [address] [id number] 06:43:00 Test Item Value Reference Range Interpretation Comments PARTIAL THROMBOPLASTIN TIME 109.3 seconds 22.5-36.0 H (AKER) (test code = 760) CBC W/PLT COUNT & AUTO [id number] 06:24:00 Test Item Value Reference Range Interpretation [...] 0-1 PERCENT (BEAKER) (test code = 2801) [id number] 01:14:00 Test Item Value Reference Range Interpretation Comments PARTIAL THROMBOPLASTIN TIME 90.5 seconds 22.5-36.0 H (BEAKER) (test code = 760) 6 hours after starting heparin infusion and as indicated per sliding scale PROTHROMBIN TIME/[id number] 01:12:00 Test Item Value Reference Range Interpretation [...] heparin infusion and as indicated per sliding [id number] 01:02:00 Test Item Value Reference Range Interpretation Comments MAGNESIUM (BEAKER) 2.9 mg/dL 1.6-2.6 H Specimen slightly (test code = 627) hemolyzed COMPREHENSIVE METABOLIC [id number] 01:02:00 Test Item Value Reference Range Interpretation [...] Specimen markedly lipemicCBC W/PLT COUNT & AUTO [id number] 00:44:00 Test Item Value Reference Range Interpretation [...] PERCENT (BEAKER) (test code = 2801) POCT-GLUCOSE [id number] 21:33:00 Test Item Value Reference Range Interpretation Comments POC-GLUCOSE METER 286 mg/dL 70-110 H TESTED AT [place] [address] ([facility]) (test code = SURAJ Colon [place] 1538) [address] [id number] 19:12:00 Test Item Value Reference Range Interpretation Comments PARTIAL THROMBOPLASTIN TIME 64.6 seconds 22.5-36.0 H ([facility]) (test code = 760) POCT-GLUCOSE [id number] 18:10:00 Test Item Value Reference Range Interpretation Comments POC-GLUCOSE METER 165 mg/dL 70-110 H TESTED AT [place] [address] ([facility]) (test code = ANNYWI Darlene [place] 1538) [address] POCT-GLUCOSE [id number] 12:50:00 Test Item Value Reference Range Interpretation Comments POC-GLUCOSE METER 152 mg/dL 70-110 H TESTED AT [place] [address] ([facility]) (test code = [facility] Darlene [place] 1538) [address] HEMOGLOBIN [id number] 10:06:00 Test Item Value Reference Range Interpretation Comments HEMOGLOBIN A1C ([facility]) (test code = 7.0 % 4.3-6.1 H 368) [id number] 09:01:00 Test Item Value Reference Range Interpretation Comments PARTIAL THROMBOPLASTIN TIME 68.3 seconds 22.5-36.0 H ([facility]) (test code = 760) PLATELET AGGREGATION: FUNCTION [id number] 08:44:00 Test Item Value Reference Range Interpretation Comments WEAK ADP 84 % 60-91 RESULT([facility]) (test code = 2135) PLATELET FUNCTION 60-100% indicates SCREEN INTERP ([facility]) normal platelet (test code = 2173) function [id number] Cindy Velasquez MD ([facility]) (test code = (electronic signature) 2622) PLATELET COUNT AGG 175 K/CU MM 150-450 ([facility]) (test code = 2656) Platelet Function Screen results may be falsely low with platelet counts<100,000/cu mm.POCT-GLUCOSE [id number] 08:23:00 Test Item Value Reference Range Interpretation Comments POC-GLUCOSE METER 185 mg/dL 70-110 H TESTED AT [place] [address] ([facility]) (test code = [facility] Darlene [place] 1538) [address] RAD, CHEST, 1 VIEW, NON [id number] 04:51:00Reason for exam:- >dyspneaShould this be performed [...] MDReport Verified Date/Time: 07/05/2018 04:51:23 Reading Location: [address] Reading Room B-TYPE NATRIURETIC FACTOR (BNP)2018-07-05 02:51:00 Test Item Value Reference Range Interpretation Comments B-TYPE NATRIURETIC PEPTIDE (BEAKER) 44 pg/mL 0-100 (test code = 700) [id number] 02:44:00 Test Item Value Reference Range Interpretation Comments MAGNESIUM (BEAKER) (test code = 2.3 mg/dL 1.6-2.6 627) BASIC METABOLIC [id number] 02:44:00 Test Item Value Reference Range Interpretation [...] I S NOT APPLICABLE FOR DIALYSIS PATIEN JANE. [id number] 02:42:00 Test Item Value Reference Range Interpretation Comments PARTIAL THROMBOPLASTIN TIME 63.2 seconds 22.5-36.0 H (BEAKER) (test code = 760) CBC W/PLT COUNT & AUTO [id number] 02:26:00 Test Item Value Reference Range Interpretation [...] PERCENT (BEAKER) (test code = 2805) POCT-GLUCOSE [id number] 21:12:00 Test Item Value Reference Range Interpretation Comments POC-GLUCOSE METER 204 mg/dL 70-[address] [facility] [address] (BEAKER) (test code = ANNYXAVIER [place] 153) [address] TSH/FREE T4 IF [id number] 19:43:00 Test Item Value Reference Range Interpretation Comments THYROID STIMULATING HORMONE 4.44 uIU/mL 0.35-4.94 (BEAKER) (test code = 772) LIPID [id number] 19:23:00 Test Item Value Reference Range Interpretation [...] 130-159 High 160-189 Very High >=190HEPATIC FUNCTION [id number] 19:23:00 Test Item Value Reference Range Interpretation [...] code = 72 U/L 6-55 H 347) [id number] 19:21:00 Test Item Value Reference Range Interpretation [...] mechanical heart valves.CBC W/PLT COUNT & AUTO [id number] 19:05:00 Test Item Value Reference Range Interpretation [...] % 0-1 PERCENT (BEAKER) (test code = 7304)
[2023-06-23] MEDS ORDERED: MORPHINE 4 MG/ML SYR ONE (23:54)
[2023-06-23 23:55] LABS: Absolute Lymphocytes (CBC) 2.1 K/uL (0.7-4.9); Hematocrit 45.1 % (39.6-49.0); MCV 95.5 fL (80-100); MPV 8.4 fL (7.6-11.3); Platelets 111 thou/uL (152-406); RBC Red Blood Cell Count 4.73 M/uL (4.33-5.43)
[2023-06-23] MEDS ORDERED: NA CHLORIDE 0.9% 500 ML ONE (23:55)
[2023-06-23] MEDS ORDERED: ONDANSETRON 4 MG/2 ML VIAL ONE (23:55)
[2023-06-24 00:07] LABS: Specific Gravity 1.024 (1.005-1.030); Urine Bacteria None Seen /HPF (<20); Urine Bilirubin NEGATIVE (Negative); Urine Blood 3+ (OVER) (Negative); Urine Clarity Clear (Clear); Urine Color Colorless (Yellow); Urine Glucose 4+ (Over) (Negative); Urine Mucus Slight /HPF (None Seen); Urine Protein NEGATIVE (Negative); Urine RBC >50 /HPF (None Seen); Urine Urobilinogen Normal (Normal); Urine pH 5.5 (5.0-7.0)
[2023-06-24 00:14] LABS: Albumin 3.5 g/dL (3.4-5.0); Bilirubin Total 0.4 mg/dL (0.2-1.0); Potassium 3.6 mEq/L (3.5-5.1); Protein, Total 6.3 g/dL (6.4-8.2)
[2023-06-24] MEDS ORDERED: CEFTRIAXONE 1000 MG/VIAL ONE (01:45)
[2023-06-24] MEDS ORDERED: KETOROLAC 30 MG/ML INJ ONE (01:46)
[2023-06-24] MEDS ORDERED: NA CHLORIDE 0.9% 500 ML ONE (01:46)
--- NOTE | 2023-06-24 02:21 | ER ---
Nurse's Notes [facility] Anette Name: Drake Vallejo Age: 58 yrs Sex: Male : 1965 Arrival Date: 06/23/2023 Time: 22:44 Bed 19 Private MD: Diagnosis: Calculus of kidney with calculus of ureter-right Presentation: 06/23 23:12 Chief complaint: Patient states: right flank pain began at 1830 denies previous kl history. Coronavirus screen: Vaccine status: Patient reports receiving the 2nd dose of the covid vaccine. Ebola Screen: Patient negative for fever greater than or equal to 101.5 degrees Fahrenheit, and additional compatible Ebola Virus Disease symptoms. Initial Sepsis Screen: Does the patient meet any 2 criteria? No. Patient's initial sepsis screen is negative. Does the patient have a suspected source of infection? No. Patient's initial sepsis screen is negative. Risk Assessment: Do you want to hurt yourself or someone else? Patient reports no desire to harm self or others. 23:12 Method Of Arrival: Ambulatory 23:12 Acuity: TERI 3 Triage Assessment: 23:15 General: Appears distressed, uncomfortable, Behavior is cooperative, anxious. Pain: kl Complains of pain in right flank. 23:17 : Reports urinary frequency. Historical: - Allergies: 23:14 hydrocet; kl - Home Meds: 23:14 Jardiance 25 mg Oral tab 1 tab once daily [Active]; Crestor 40 mg Oral tab [Active]; kl levothyroxine oral [Active]; Ozempic 1 mg/dose (2 mg/1.5 mL) subcutaneous pnij once wkly [Active]; aspirin 81 mg Oral TbEC 1 tab once daily [Active]; - PMHx: 23:14 Bipolar disorder; CAD; Depression; Diabetes - NIDDM; Hypertension; Hypothyroidism; kl Myocardial infarction; X8; - PSHx: 23:14 Coronary artery bypass graft; Heart Stents; x7; r knee SX; kl - Immunization history:: Adult Immunizations up to date. - Social history:: Smoking status: Patient denies any tobacco usage or history of. Screenin/27 02:08 [facility] ED Fall Risk Assessment (Adult) History of falling in the last 3 months, kl including since admission No falls in past 3 months (0 pts) Confusion or Disorientation No (0 pts) Intoxicated or Sedated No (0 pts) Impaired Gait No (0 pts) Mobility Assist Device Used No (0 pt) Altered Elimination No (0 pt) Score/Fall Risk Level 0 - 2 = Low Risk Oriented to surroundings, Maintained a safe environment. Abuse screen: Denies threats or abuse. Nutritional screening: No deficits noted. Tuberculosis screening: No symptoms or risk factors identified. Assessment: 02:08 Reassessment: Patient appears in no apparent distress at this time. Patient is alert, kl oriented x 3, equal unlabored respirations, skin warm/dry/pink. Patient states feeling better. Vital Signs: 06/23 23:12 BP 136 / 92; Pulse 81; Resp 18; Temp 98.3(O); Pulse Ox 98% on R/A; Weight 105.23 kg kl (R); Height 6 ft. 0 in. ; Pain 06/07; 06/24 02:28 BP 141 / 74; Pulse 72; Resp 18; Temp 98.3; Pulse Ox 97% ; cg3 06/23 23:12 Body Mass Index 31.46 (105.23 kg, 182.88 cm) kl 06/23 23:12 Pain Scale: Adult ED Course: 06/23 22:47 Patient arrived in ED. ag3 22:52 Ken Foss PA is PHCP. cp 22:52 Christiano Red MD is Attending Physician. cp 23:00 Inserted saline lock: 20 gauge in right upper arm, using aseptic technique. kl 23:14 Triage completed. 06/24 00:08 CT Stone Protocol In Process Unspecified. EDMS 02:09 Patient has correct armband on for positive identification. Placed in gown. Call light kl in reach. 02:09 No provider procedures requiring assistance completed. kl 02:19 Volodymyr Piedra MD is Referral Physician. cp 02:36 IV discontinued, intact, bleeding controlled, No redness/swelling at site. Pressure kl dressing applied. Administered Medications: 00:01 Drug: morphine IVP or IV 4 mg IVP once over 4 mins Route: IVP; Infused Over: 4 mins; Site: right upper arm; 00:01 Drug: NS 0.9% IV 500 ml IV at bolus once Route: IV; Rate: bolus; Site: right upper arm; kl 02:10 Follow up: IV Status: Completed infusion; IV Intake: 500ml kl 00:04 Drug: Ondansetron IVP 4 mg IVP once; over 2 minutes Route: IVP; Site: right upper arm; kl 00:28 Drug: NS 0.9% IV 500 ml IV at 125 ml/hr continuous Route: IV; Rate: 125 ml/hr; Site: right upper arm; 01:25 Drug: Rocephin - Rocephin (cefTRIAXone) IVPB 1 grams IVPB once over 30 mins; (mix in 50 kl mL NS) Route: IVPB; Infused Over: 30 mins; Site: right upper arm; 01:37 Drug: Ketorolac IVP 15 mg IVP once Route: IVP; Site: right [facility] arm; kl 02:10 Follow up: Response: No adverse reaction kl 02:36 Drug: Flomax PO 0.4 mg PO once Route: PO; kl Intake: 02:10 IV: 500ml; Total: 500ml. Outcome: 02:20 Discharge ordered by . yesi 02:36 Discharged to home ambulatory, 02:36 Condition: improved 02:36 Discharge instructions given to patient, Instructed on discharge instructions, follow up and referral plans. medication usage, Demonstrated understanding of instructions, follow-up care, medications, Prescriptions given X 4, 02:39 Patient left the ED. Signatures: Dispatcher [employer] Juliana Grant, RN RN Ken Posadas PA PA cp Gomez, Alice ag3 Jaimee Singh 3
--- NOTE | 2023-06-24 02:21 | EDPHYS ---
Physician Documentation [facility] Name: Drake Vallejo Age: 58 yrs Sex: Male : 1965 Arrival Date: 06/23/2023 Time: 22:44 Bed 19 Private MD: ED Physician Christiano Red HPI: 06/23 23:35 This 58 yrs old Male presents to ER via Ambulatory with complaints of Low Back Pain. cp 23:35 The patient presents with pain that is acute, with no known mechanism of injury. The cp symptoms are located in the right mid back. The pain does not radiate. The problem was sustained from unknown cause. Onset: The symptoms/episode began/occurred today. 23:35 Associated signs and symptoms: Pertinent positives: hematuria, nausea, Pertinent cp negatives: abdominal pain, chest pain, fever, incontinence, urinary retention, vomiting, weakness. Severity of symptoms: in the emergency department the symptoms are unchanged, despite home interventions. Historical: - Allergies: 23:14 hydrocet; kl - Home Meds: 23:14 Jardiance 25 mg Oral tab 1 tab once daily [Active]; Crestor 40 mg Oral tab [Active]; kl levothyroxine oral [Active]; Ozempic 1 mg/dose (2 mg/1.5 mL) subcutaneous pnij once wkly [Active]; aspirin 81 mg Oral TbEC 1 tab once daily [Active]; - PMHx: 23:14 Bipolar disorder; CAD; Depression; Diabetes - NIDDM; Hypertension; Hypothyroidism; kl Myocardial infarction; X8; - PSHx: 23:14 Coronary artery bypass graft; Heart Stents; x7; r knee SX; kl - Immunization history:: Adult Immunizations up to date. - Social history:: Smoking status: Patient denies any tobacco usage or history of. ROS: 23:40 Constitutional: Negative for body aches, chills, fever, poor PO intake, cp 23:40 Eyes: Negative for injury, pain, redness, and discharge, cp 23:40 ENT: Negative for drainage from ear(s), ear pain, sore throat, difficulty swallowing, difficulty handling secretions, 23:40 Cardiovascular: Negative for chest pain, edema, palpitations, 23:40 Respiratory: Negative for cough, shortness of breath, wheezing, 23:40 Abdomen/GI: Positive for nausea, Negative for abdominal pain, vomiting, diarrhea, constipation, 23:40 Back: Positive for pain at rest, pain with movement, of the right flank, 23:40 : Positive for urinary frequency, hematuria, Negative for burning with urination, testicular pain 23:40 Skin: Negative for cellulitis, rash, 23:40 Neuro: Negative for altered mental status, dizziness, headache, syncope, weakness, 23:40 All other systems are negative, Exam: 23:45 Constitutional: The patient appears in no acute distress, alert, awake, cp non-diaphoretic, non-toxic, well developed, well nourished, uncomfortable, 23:45 Head/Face: Normocephalic, atraumatic. cp 23:45 Eyes: Periorbital structures: appear normal, Conjunctiva: normal, no exudate, no injection, Sclera: no appreciated abnormality, Lids and lashes: appear normal, bilaterally, 23:45 ENT: External ear(s): are unremarkable, Nose: is normal, Mouth: Lips: moist, Oral mucosa: pink and intact, moist, Posterior pharynx: Airway: no evidence of obstruction, patent, 23:45 Neck: ROM/movement: is normal, is supple, without pain, no range of motions limitations, 23:45 Chest/axilla: Inspection: normal, 23:45 Cardiovascular: Rate: normal, Rhythm: regular, 23:45 Respiratory: the patient does not display signs of respiratory distress, Respirations: normal, no use of accessory muscles, no retractions, labored breathing, is not present, Breath sounds: are clear throughout, no decreased breath sounds, no stridor, no wheezing, 23:45 Abdomen/GI: Inspection: obese Bowel sounds: active, all quadrants, Palpation: abdomen is soft and non-tender, in all quadrants, 23:45 Back: pain, that is moderate, of the right flank, ROM is painful, with all movement, 23:45 Skin: cellulitis, is not appreciated, no rash present. Vital Signs: 23:12 BP 136 / 92; Pulse 81; Resp 18; Temp 98.3(O); Pulse Ox 98% on R/A; Weight 105.23 kg kl (R); Height 6 ft. 0 in. ; Pain 06/07; 06/24 02:28 BP 141 / 74; Pulse 72; Resp 18; Temp 98.3; Pulse Ox 97% ; cg3 06/23 23:12 Body Mass Index 31.46 (105.23 kg, 182.88 cm) kl 06/23 23:12 Pain Scale: Adult kl MDM: 06/23 23:10 Patient medically screened. cp 06/24 00:00 Differential diagnosis: fracture, sciatica, contusion, Herniated disc UTI, cp pyelonephritis. 02:20 Data reviewed: vital signs, nurses notes, lab test result(s), radiologic studies, CT cp scan. 02:20 Consideration of Admission/Observation Escalation of care including cp admission/observation considered. I considered the following discharge prescriptions or medication management in the emergency department Medications were administered in the Emergency Department. See MAR. Care significantly affected by the following chronic conditions: Diabetes, Hypertension. Counseling: I had a detailed discussion with the patient and/or guardian regarding the historical points, exam findings, and any diagnostic results supporting the discharge/admit diagnosis, lab results, radiology results, to return to the emergency department if symptoms worsen or persist or if there are any questions or concerns that arise at home. Response to treatment: the patient's symptoms have markedly improved after treatment, and as a result, I will discharge patient. 06/23 23:32 Order name: CBC with Diff; Complete Time: 01: cp 06/24 01:23 Interpretation: Normal except: PLT 111. cp 06/23 23:32 Order name: CMP; Complete Time: 01:23 cp 06/24 01:23 Interpretation: Normal except: CL 114; GLUC 293; CRE 1.36; GFR 60; CA 8.4; TP 6.3. cp 06/23 23:32 Order name: Lipase; Complete Time: 01:23 cp 06/23 23:32 Order name: Urinalysis w/ reflexes; Complete Time: 01: cp 06/24 01:23 Interpretation: Normal except: UGLUC 4+ (Over); UBLD 3+ (OVER); UWBC 20-50; URBC >50. cp 06/24 00:10 Order name: Urine Culture EDFL 06/23 23:32 Order name: CT Stone Protocol cp 06/23 23:32 Order name: IV Saline Lock; Complete Time: 02:10 cp 06/23 23:32 Order name: Labs collected and sent; Complete Time: 02:10 cp Administered Medications: 00:01 Drug: morphine IVP or IV 4 mg IVP once over 4 mins Route: IVP; Infused Over: 4 mins; kl Site: right upper arm; 00:01 Drug: NS 0.9% IV 500 ml IV at bolus once Route: IV; Rate: bolus; Site: right upper arm; kl 02:10 Follow up: IV Status: Completed infusion; IV Intake: 500ml kl 00:04 Drug: Ondansetron IVP 4 mg IVP once; over 2 minutes Route: IVP; Site: right upper arm; kl 00:28 Drug: NS 0.9% IV 500 ml IV at 125 ml/hr continuous Route: IV; Rate: 125 ml/hr; Site: kl right upper arm; 01:25 Drug: Rocephin - Rocephin (cefTRIAXone) IVPB 1 grams IVPB once over 30 mins; (mix in 50 kl mL NS) Route: IVPB; Infused Over: 30 mins; Site: right upper arm; 01:37 Drug: Ketorolac IVP 15 mg IVP once Route: IVP; Site: right upper arm; kl 02:10 Follow up: Response: No adverse reaction kl 02:36 Drug: Flomax PO 0.4 mg PO once Route: PO; kl Disposition: 04:50 Co-signature as Attending Physician, Christiano Red MD I reviewed the patient's care rn provided by the Advanced Practice Provider and agree with the diagnosis and treatment plan. Disposition Summary: 06/24/23 02:20 Discharge Ordered Notes: Location: Home cp Problem: new cp Symptoms: have improved cp Condition: Stable cp Diagnosis - Calculus of kidney with calculus of ureter - right cp Followup: cp - With: Volodymyr Piedra MD - When: 2 - 3 days - Reason: pain continues Discharge Instructions: - Discharge Summary Sheet cp - Kidney Stones cp - Renal Colic cp Forms: - Medication Reconciliation Form cp - Thank You Letter cp - Antibiotic Education cp - Prescription Opioid Use cp - Patient Portal Instructions cp - Leadership Thank You Letter cp Prescriptions: - Flomax 0.4 mg Oral capsule - take 1 capsule ORAL route daily As needed; 7 capsule; Refills: 0, Product cp Selection Permitted - acetaminophen-codeine 300-30 mg Oral tablet - take 2 tablet ORAL route every 8 hours as needed for pain. 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
[2023-06-24 02:43] VITALS: TEMP 98.3
[2023-06-24 02:45] VITALS: BP 141/74; O2SAT 97
[2023-06-24] MEDS ORDERED: TAMSULOSIN 0.4 MG SR CAP ONE (02:45)
--- NOTE | 2023-06-24 20:15 | RAD REPORT ---
EXAM DESCRIPTION: Stone Protocol CLINICAL HISTORY: 58 years Male right mid back pain COMPARISON: None TECHNIQUE: CT of the abdomen and pelvis without contrast. All CT scans at this facility use dose modulation, iterative reconstruction, and/or weight based dosi ng when appropriate to reduce radiation dose to as low as reasonably achievable. FINDINGS: Lower thorax: Lung bases are clear Abdomen: Stomach: Within normal limits Liver: No focal lesions. No intrahepatic ductal distention. Gallbladder: Nondistended Pancreas: Within normal limits Spleen: Within normal limits Right kidney: Mild hydronephrosis. Multiple tiny renal stones. Proximal ureteral stone measuring 3 mm . Left kidney: No hydronephrosis. No renal or ureteral calculi. Superior pole hypodensity measuring 2.3 cm, likely cyst. Adrenal glands: Within normal limits Vascular structures: Atherosclerosis of the abdominal aorta and major branches. Infrarenal abdominal aortic aneurysm measuring 3 cm. Lymph nodes: No lymphadenopathy by size criteria Pelvis: Small bowel: No significant distention. Appendix: Within normal limits Colon: No distention or acute pericolonic edema. Colonic diverticulosis. Peritoneum: No free intraperitoneal fluid or air. Bones: No acute bone findings. Cord (compression deformity of the L1 vertebral body. Bladder: Unremarkable. Reproductive organs: No acute findings. Note that evaluation of the bowel and solid organs is somewhat limited due to lack of intravenous and oral contrast. IMPRESSION: 1. Right-sided proximal ureteral stone measuring 3 mm. Associated mild right-sided hyd ronephrosis. 2. Colonic diverticulosis without diverticulitis. 3. 3 cm infrarenal abdominal aortic aneurysm. Recommend follow-up every 3 years. Electronically signed by: Sourav Ewing MD 06/24/2023 12:27 AM CDT Due to temporary technical issues with the PACS/Fluency reporting system, reports are being signed by the in house radiologists without review as a courtesy to insure prompt reporting. The interpreting radiologist is fully responsible for the content of the report.
== END 2023-06-24 02:39 | disposition home or self-care (01) ==
LOC: ER 22:44
DX: N20.2 Calculus of kidney with calculus of ureter (principal); E11.9 Type 2 diabetes mellitus without complications; I10 Essential (primary) hypertension; E03.9 Hypothyroidism, unspecified; I25.10 Atherosclerotic heart disease of native coronary artery without angina pectoris; F31.9 Bipolar disorder, unspecified; F32.A Depression, unspecified; I25.2 Old myocardial infarction
CPT/HCPCS: 36415; 74176; 76377; 80053; 81001; 83690; 85025; 87086; 87088; 96361; 96374; 96375; 99284; J0696; J2405; J7040